=== PATIENT | male | born 1935 | race Caucasian/White ===

== ENCOUNTER 2017-06-24 05:24 | Day surgery (SDC) | payer MEDICARE, BC, SELFPAY ==
[2017-06-17 07:30] VITALS: BP 130/80; BMI 23.4
[2017-06-24 06:08] VITALS: BP 149/76; PULSE 71; RESP 16; O2SAT 98; BMI 23.4
--- NOTE | 2017-06-24 06:42 | COLBX_PTH ---
PATIENT: HERBERTH ROMAN LOC: [facility] U#:[id number] AGE/SX: 81/M ROOM: RE06/24/[address]: Dr. Yoseph Bowers MD : 1935 BED: DIS: 06/24/2017 SPEC #: [id number] RECD: 06/24/17 11:05 STATUS: AVINASH JADON #: [id number] LEE: 06/24/17 06:[address]: Yoseph Bowers DEPT: SURGICAL PATHOLOGY RECD BY: Anthony Zamora ENTERED: 06/24/17 12:05 SP TYPE: COLON BX OTHR DR: Dr. Stanley Fontenot MD Tissues: Rectum, NOS Procedures: Surgery Specimen Level IV HEADER OPERATION: Colonoscopy and polypectomy PRE-OP DIAGNOSIS: Change in bowel habits TISSUE SUBMITTED: Rectum polyp MICROSCOPIC DIAGNOSIS Rectal polyp, biopsy: Hyperplastic polyp. AM:hector 06/25/17 MICROSCOPIC DESCRIPTION Slides are reviewed. GROSS DESCRIPTION Received in fixative is one container labeled with the patient's name and designated rectum polyp. The specimen consists of multiple irregular fragments of light landeros soft tissue that in aggregate measure 0.5 x 0.3 x 0.1 cm. The specimen is totally submitted in one cassette. / SJ:hector 06/24/17 TC:5 CPT: 25363
--- NOTE | 2017-06-24 06:47 | PCM.OPRPT ---
Problem List (1) Change in bowel habit Status: Acute Report of Operation Date of Procedure: 06/24/17 Pre-Operative Diagnosis: Acute change of bowel habit. Personal history of colon cancer and personal history of colon polyps Post-Operative Diagnosis: Patent colorectal anastomosis. Diminutive rectal polyp. Internal and external hemorrhoids. Lax anal tone. Sigmoid diverticulosis Surgery/Procedure Performed:: Colonoscopy with snare polypectomy Description of Surgical Findings:: Timeout and informed consent was obtained. 81-year-old gentleman was taken to the endoscopy suite. He was placed in a left lateral decubitus position. 50 mg of Demerol and 2.5 mg of Versed were given as intravenous sedation. Digital rectal exam performed. 2+ smooth prostate. Internal and external hemorrhoids noted more of an internal component. No active bleeding. Lax anal tone. Flexible colonoscope inserted in the rectum advanced identifying a colorectal anastomosis at approximately 8-10 cm. It appeared to be widely patent. Scope was advanced past that up a the sigmoid colon past the splenic flexure than easily through the transverse colon to the cecum. Bowel prep was adequate there was still some liquid stool throughout the colon but it could be aspirated. The cecum ileocecal valve area was nicely achieved. The scope was carefully withdrawn from the ascending transverse descending and sent remnant of the sigmoid colon. Sigmoid diverticulosis was identified but I did not identify any signs of acute inflammation. The widely patent colorectal anastomosis was identified. Guerline ink was still remaining marking this area. There was a diminutive 6 mm sessile polyp of the rectum with about 6 cm to the anal verge. This was resected using a snare cautery. It was retrieved. Inspection of the rectum revealed internal hemorrhoids. Did not see any stricture or mass lesions. Excess fluid and air was aspirated free the procedure was completed with the patient tolerating it well. Impression Lax anal tone. Internal and external hemorrhoids with more of an internal hemorrhoidal component Sigmoid diverticulosis The patent colorectal anastomosis Sessile polyp of the rectum Previous colonoscopy was April 19, 2014. The patient has had previous history of colon cancer within a polyp that was resected. He has had dysplasia within a broad-based rectal polyp that required the colectomy. At this point he has no evidence of active disease. Pending pathology follow-up colonoscopy to be considered in 3 years. Etiology to the patient's change of bowel habits not identified. I will recommend fiber supplementation. The patient has a multicolored pigmented skin lesion right buttock. Office excision has been recommended to the patient. Cc: Dr. Po Bowers M.D., F.A.C.S. Type of Anesthesia:: IV Sedation
[2017-06-24 06:50] VITALS: BP 104/63; BP 107/73; BP 149/76; PULSE 72; PULSE 74; RESP 18; TEMP 36.4; O2SAT 92; O2SAT 94
[2017-06-24 07:00] VITALS: BP 107/68; BP 149/76; PULSE 69; RESP 18; O2SAT 92
[2017-06-24 07:07] VITALS: BP 105/65; BP 149/76; PULSE 68; RESP 16; TEMP 36.3; O2SAT 92
[2017-06-24 07:21] VITALS: BP 149/76
== END 2017-06-24 07:34 | disposition home or self-care (01) ==
LOC: EN 05:25 → AC 05:26
PROVIDERS: Family Provider Family Medicine; PCP Family Medicine; Visit Provider Surgery
PROC: 0DJD8ZZ Inspection of Lower Intestinal Tract, Via Natural or Artificial Opening Endoscopic (ICD-10-PCS; CPT 45378; principal; 2017-06-24 06:25)
DX: K62.1 Rectal polyp (principal); K57.30 Diverticulosis of large intestine without perforation or abscess without bleeding; K62.89 Other specified diseases of anus and rectum; K64.8 Other hemorrhoids; Z86.010 Personal history of colon polyps; L98.8 Other specified disorders of the skin and subcutaneous tissue; F17.210 Nicotine dependence, cigarettes, uncomplicated; Z90.49 Acquired absence of other specified parts of digestive tract
CPT/HCPCS: 45385; 88305; J7120

== ENCOUNTER → 2017-07-05 14:25 | Outpatient (CLI) | payer MEDICARE, BC, SELFPAY ==
--- NOTE | 2017-07-05 | IMM_PTH ---
PATIENT: HERBERTH ROMAN LOC: [facility] U#:[id number] AGE/SX: 89/M ROOM: RE07/05/[address]: Dr. Yoseph Bowers MD : 1935 BED: DIS: SPEC #: [id number] RECD: 07/06/17 12:44 STATUS: AVINASH REAddy #: [id number] LEE: 07/05/17 00:[address]: Yoseph Bowers DEPT: IMMUNOHISTOCHEMISTRY RECD BY: Lacie Machuca ENTERED: 07/06/17 12:45 SP TYPE: IMMUNO OTHR DR: Dr. Stanley Fontenot MD Tissues: Skin of buttock, NOS Procedures: [place]-1 (initial) S-100 (add) PHYSICIAN & INSTITUTION [place] [id number] SPECIMEN INFORMATION: Tissue Source: Right buttock tissue Clinical Info: Right buttock lesion Specimen Number: [id number] CPT code: 39006, 26974 METHODOLOGY: Deparaffinized sections of prefer/formalin-fixed tissue or PAP/DQ stained slides are incubated with monoclonal/polyclonal antibodies/oligonucleotide probes. Localization is made via biotin free immunoperoxidase method. Appropriate controls are performed and reacted as expected. Results on target cell population are indicated in the following table: RESULTS: ANTIBODY / CLONE RESULT S-100 (4C4.9) positive MART-1 (A-103) positive These tests were developed and their performance characteristics determined by [facility]. They may not have been cleared or approved by the U.S. Food and Drug Administration. The FDA has determined that such clearance or approval is not necessary. 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 SJ:hector 07/06/17
--- NOTE | 2017-07-05 13:00 | LES_PTH ---
PATIENT: HERBERTH ROMAN LOC: [facility] U#:[id number] AGE/SX: 89/M ROOM: RE07/05/[address]: Dr. Yoseph Bowers MD : 1935 BED: DIS: SPEC #: [id number] RECD: 07/05/17 13:40 STATUS: AVINASH JADON #: [id number] LEE: 07/05/17 13:[address]: Yoseph Bowers DEPT: SURGICAL PATHOLOGY RECD BY: Lacie Machuca ENTERED: 07/05/17 15:28 SP TYPE: Lesion OTHR DR: Dr. 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 See comment. SJ:hector 07/06/17 COMMENT Immunohistochemistry ([id number]) supports the above diagnosis. Case has been reviewed in consultation with Dr. Dill who concurs with the above diagnosis. IDC:AM MICROSCOPIC DESCRIPTION Slides are reviewed. GROSS DESCRIPTION Received in fixative is one container labeled with the patient's name and designated right buttock tissue. The specimen consists of a landeros-white skin ellipse measuring 2 x 0.7 cm and up to 0.5 cm in thickness. The brown round lesion on the skin surface measures 0.5 x 0.5 cm. The specimen is inked, serially sectioned and submitted entirely in one cassette. / CARMELINA:hector 07/05/17 TC:1 CPT: 27032
== END ==
PROVIDERS: Family Provider Family Medicine; PCP Family Medicine; Visit Provider Surgery
DX: L98.9 Disorder of the skin and subcutaneous tissue, unspecified (principal)
CPT/HCPCS: 88305; 88341; 88342

== ENCOUNTER 2022-06-13 18:39 | Emergency (ER) | payer MEDICARE, BC, SELFPAY ==
[2022-06-13 18:40] VITALS: BP 128/71; PULSE 73; RESP 15; TEMP 36.8; O2SAT 95; BMI 21.6
--- NOTE | 2022-06-13 19:09 | EDS_ITS ---
HPI History of Present Illness Chief Complaint: Back Narrative Narrative: 86-year-old male here for back pain. Patient notes the back pain is intermittent. Notes associated abdominal pain. Denies any syncope. Denies any exacerbating or alleviating symptoms. Pain is not worse by movement. Denies any increased activity, new exercises, or trauma to the area. States he is got left-sided back pain notes it wraps around to the groin and the suprapubic region. Notes chronic dribbling, urinary frequency that he associates with his prostate enlargement. His last bowel movement was yesterday. He has had no melena, medic easier. Does note 2 episodes of nonbloody nonbilious vomitus. Denies any chest pain or shortness of breath. Denies any family history of connective tissue disorders or aortic pathology. Denies any fever. Denies any urinary complaints. Patient denies any saddle anesthesia, urinary tension, bowel or bladder incontinence, lower extremity weakness, fever or IV drug use, no recent spinal manipulation or surgery, no recent urinary catheterization. [facility] Medical History (Updated 06/13/22 @ 22:[address] Wilfredo Talbot DO) Change in bowel habits History of colon polyps Skin lesion Home Medications NK 06/24/17 [History Last Taken Unknown] Allergy/AdvReac Type Severity Reaction Status Date / Time No Known Allergies Allergy Verified 07/12/17 08:52 Family History Brother Heart disease Surgical History (Updated 06/13/22 @ 22:[address] Wilfredo Talbot DO) History of colectomy S/P colonoscopy Status post excisional biopsy Social History (Updated 07/12/17 @ 09:08 by Nakita QUIROGA, PA-C) Smoking Status: Unknown if ever smoked alcohol intake: never ROS ROS ED ROS Narrative Constitutional: Denies fever HEENT: Denies sore throat Neck: Denies neck pain Cardiovascular: Denies chest pain, syncope Respiratory: Denies shortness of breath GI: Endorses nausea vomiting abdominal pain : Denies any urinary retention, endorses chronic urinary frequency Musculoskeletal: Endorses back pain Neurologic: Denies numbness weakness or loss of sensation Skin denies rash EXAM Physical Exam Narrative Exam Narrative: Nursing triage notes reviewed, Vital signs reviewed Constitutional: please see mdm HENT: MMM Eyes: Pupils equal round and reactive to light, Extraocular muscles intact Neck: No stridor, no JVD, full neck ROM Lungs: Clear to auscultation, No wheezing or rales. No increased work of breathing, no conversational dyspnea, no accessory muscle use, no nasal flaring. No respiratory distress noted Heart: Regular rate and rhythm, No murmurs, No rubs and No gallops, 2+ distal pulses (radial, femoral, posterior tibial) in all extremities Abdomen: Soft, there is no tenderness,no rigidity, rebound or guarding, no obvious peritoneal signs, no palpable pulsatile abdominal masses, no auscultated abdominal bruit : No CVAT Extremities: No edema Neuro: Intact sensation L1-S1 dermatomal distributions. Intact 5/5 strength in hip flexion (T12-L3). Knee extension (L2-L4). Ankle dorsiflexion (L4-L5). Ankle plantar flexion (S1). Great toe extension (L5). 2+ patellar and Achilles DTRs. Skin: No rash or lesions noted Const Vital Signs: 06/13/22 18:40 Temperature 98.2 F Temperature Source Temporal Pulse Rate 73 Respiratory Rate 15 Blood Pressure 128/71 H Blood Pressure Mean 90 Pulse Ox 95 Oxygen Delivery Method Room Air [facility] Narrative Medical decision making narrative: Chief Complaint: Back pain External records reviewed: No recent advanced imaging of the axial skeleton I considered: AAA, pyelonephritis, nephrolithiasis, muscular back pain, space-occupying lesion including epidural abscess, epidural hematoma, mass. I considered obtain MRI of the lumbar spine to rule out space-occupying lesion however patient had no red flag symptoms such as urinary retention, bowel or bladder incontinence, focal neurologic deficit, history of IV drug use, fever. No signs of cauda equina history or exam. No indication for emergent MRI at this time. I was concerned about intra-abdominal pathology given the patient's advanced age, history of polyps, history of non-Hodgkin's lymphoma status post remote chemo and radiation. I did obtain a CT scan of patient's abdomen pelvis as well as labs to rule out intra-abdominal pathologies, dehydration, hepatobiliary pathology, pancreatitis, UTI, pyelonephritis, nephrolithiasis. Labs and imaging are were remarkable for evidence of a AAA that was proximally 5 cm. There is no leakage, extravasation or rupture noted. He was hemodynamically stable and pain-free on reevaluation. Did discuss case with vascular surgery recommended discharge and close outpatient follow-up. Urine without evidence of inflammation or signs of UTI. Given lack of urine information no signs of pyelonephritis. No significant dehydration noted. No evidence of atrial fibrillation to suggest mesenteric ischemia Factors affecting care: History of colon polyps, non-Hodgkin's lymphoma (status post chemoradiation remotely) Social determinants of health: Elderly, poor health literacy Shared decision making: I will have a discussion with the patient and or visitors regarding risk/benefits of further testing or admission. They will be made aware of of the risk/benefits inherent in this decision they will be given the opportunity to voice understanding. Consults: Vascular surgery (Dr. Ortiz, recommended no acute surgical intervention, further recommended discharge and close outpatient follow-up) Lab Data Attestation: I reviewed the patient's lab results. Lab results narrative: CBC without evidence of leukocytosis to suggest systemic inflammation, no significant anemia or thrombocytopenia BMP without significant electrolyte abnormalities, no anion gap to suggest endorgan hypoperfusion, no acute kidney injury Lactate is wnl indicating no end-organ hypoperfusion and/or hypoxia. Lipase within normal limits, no evidence of pancreatitis LFTs without evidence of obstructive hepatobiliary pathology Urinalysis without evidence of UTI Labs: Laboratory Results - last 24 hr 06/13/22 06/13/22 06/13/22 19:55 19:55 19:55 WBC 5.5 RBC 4.57 L Hgb 14.3 Hct 42.9 MCV 93.9 MCH 31.3 MCHC 33.3 RDW Std Deviation 43.2 RDW Coeff of Carlos 12.4 Plt Count 155 MPV 10.6 Immature Gran % (Auto) 0.200 Neut % (Auto) 69.0 Lymph % (Auto) 18.0 L [place] % (Auto) 12.4 H Eos % (Auto) 0.2 Baso % (Auto) 0.2 Absolute Neuts (auto) 3.8 Absolute Lymphs (auto) 0.99 Nucleated RBC % 0 Sodium 139 Potassium 3.9 Chloride 104 Carbon Dioxide 27.0 Anion Gap 8 BUN 16 Creatinine 0.90 Estim Creat Clear Calc 51.59 Est GFR (MDRD) Af Amer 102 Est GFR (MDRD) Non-Af 85 BUN/Creatinine Ratio 17.7 Glucose 104 Lactic Acid 1.0 Calcium 8.7 Total Bilirubin 0.50 Direct Bilirubin 0.17 AST 17 ALT 19 Alkaline Phosphatase 47 Total Protein 6.8 Albumin 3.5 Globulin 3.3 Lipase 143 Urine Color Urine Clarity Urine pH Ur Specific [place] Urine Protein Urine Glucose (UA) Urine Ketones Urine Occult Blood Urine Nitrite Urine Bilirubin Urine Urobilinogen Ur Leukocyte Esterase Urine RBC Urine WBC Ur Squamous Epith Cells Urine Bacteria Urine Mucus 06/13/22 20:50 WBC RBC Hgb Hct MCV MCH MCHC RDW Std Deviation RDW Coeff of [place] Plt Count MPV Immature Gran % (Auto) Neut % (Auto) Lymph % (Auto) [place] % (Auto) Eos % (Auto) Baso % (Auto) Absolute Neuts (auto) Absolute Lymphs (auto) Nucleated RBC % Sodium Potassium Chloride Carbon Dioxide Anion Gap BUN Creatinine Estim Creat Clear Calc Est GFR (MDRD) Af Amer Est GFR (MDRD) Non-Af BUN/Creatinine Ratio Glucose Lactic Acid Calcium Total Bilirubin Direct Bilirubin AST ALT Alkaline Phosphatase Total Protein Albumin Globulin Lipase Urine Color Yellow Urine Clarity Clear Urine pH 6.5 Ur Specific [place] 1.010 Urine Protein Negative Urine Glucose (UA) Normal Urine Ketones 15 H Urine Occult Blood Negative Urine Nitrite Negative Urine Bilirubin Negative Urine Urobilinogen Normal Ur Leukocyte Esterase Negative Urine RBC 0 SEEN Urine WBC 0 SEEN Ur Squamous Epith Cells 0 SEEN Urine Bacteria 0 SEEN Urine Mucus 0 SEEN Radiography Diagnostic Testing: Clinical Impression(s) from Imaging Studies Abdomen/Pelvis CT 06/13/22 19:40 IMPRESSION: 1. Fusiform infrarenal abdominal aortic aneurysm measuring up to about 5 cm in maximum dimension (anterior to posterior) without adjacent fluid or inflammation. Is no evidence of leakage or rupture. 2. Fluid within nondistended loops of small bowel and within stomach without bowel wall thickening or surrounding inflammation can be normal or can be seen with gastroenteritis in the right clinical setting. 3. Small focal infiltrate involving the right lower lobe. Groundglass opacities at the posterior lower lobes bilaterally. Consider infectious or inflammatory etiologies. 4. Prostatomegaly with calcifications, nonspecific. Correlate with PSA levels. Electronically Signed: Jesus Alberto Rueda MD at 21:40 EST , Discharge Plan Triage Chief Complaint: Back ED Provider: Wilfredo Talbot Dx/Rx/DC Orders Clinical Impression: AAA (abdominal aortic aneurysm), History of colon polyps, History of colectomy, Tobacco abuse Prescriptions: No Action NK Primary Care Provider: Stanley Fonetnot Referrals: Eriberto Ortiz MD [Med Staff - Active Staff] - As soon as possible Activity Restrictions/Additional Instructions: Please return if develop worsening pain, flank pain, back pain, abdominal pain. Please return if you lose consciousness. Please return if you become pale, weak or if your symptoms change or worsen in any way. Please follow-up with Dr. Ortiz (vascular surgeon) for outpatient evaluation and to discuss surgical options. Disposition Disposition: Home, Self Care
--- NOTE | 2022-06-13 19:40 | CT_ITS ---
EXAM: CT ABDOMEN AND PELVIS WITH INTRAVENOUS CONTRAST CLINICAL INDICATION: Abdominal pain, left flank pain, lower abdominal TECHNIQUE: Helically acquired images were obtained of the abdomen and pelvis with intravenous contrast. CTDIvol = ( 10.19 ) mGy, DLP = ( 326.60 ) mGycm This CT exam was performed using one or more of the following dose reduction techniques: automated exposure control, adjustment of the mA and/or kV according to patient size, and/or use of iterative reconstruction technique. This report was created using [employer] report generation technology. CONTRAST: IV 100mL Isovue-370 COMPARISON: None. FINDINGS: LOWER THORAX: Small focal infiltrate involving the right lower lobe. Groundglass opacities at the posterior lower lobes bilaterally could potentially be infectious or inflammatory. No cardiomegaly. No significant pericardial effusion. ABDOMEN: LIVER: Small right anterior hepatic cyst. Homogeneous. No other focal mass. GALLBLADDER AND BILE DUCTS: Unremarkable. No calcified gallstones. No gallbladder distention or wall edema. No intra- or extrahepatic biliary ductal dilation. PANCREAS: Unremarkable. No focal cystic or solid mass. SPLEEN: Unremarkable. Normal size without focal cystic or solid mass. ADRENALS: Unremarkable. No nodules. KIDNEYS AND URETERS: A few scattered small renal cysts bilaterally and other too small to characterize hypodensities bilaterally statistically probably represent cysts. No other renal abnormalities. Normal renal size and position. No hydronephrosis. STOMACH AND BOWEL: Fluid within nondistended loops of small bowel and within stomach without bowel wall thickening or surrounding inflammation can be normal or can be seen with gastroenteritis in the right clinical setting. No other abnormalities. PELVIS: APPENDIX: No evidence of acute appendicitis. BLADDER: Unremarkable. REPRODUCTIVE: Prostatomegaly with calcifications, nonspecific. Correlate with PSA levels. ABDOMEN and PELVIS: INTRAPERITONEAL SPACE: Unremarkable. No ascites or other fluid collection. No free air. BONES/JOINTS: Unremarkable. No suspicious lytic or sclerotic lesions of bone. SOFT TISSUES: Small fat-containing inguinal hernias bilaterally. VASCULATURE: Fusiform infrarenal abdominal aortic aneurysm measuring up to about 5 cm in maximum dimension (anterior to posterior) without adjacent fluid or inflammation. There is a eccentric soft tissue clot involving the periphery of the aneurysm but no significant luminal stenosis. LYMPH NODES: Unremarkable. No enlarged lymph nodes. CT/Abdomen/Pelvis W IV Cont ONLY IMPRESSION: 1. Fusiform infrarenal abdominal aortic aneurysm measuring up to about 5 cm in maximum dimension (anterior to posterior) without adjacent fluid or inflammation. Is no evidence of leakage or rupture. 2. Fluid within nondistended loops of small bowel and within stomach without bowel wall thickening or surrounding inflammation can be normal or can be seen with gastroenteritis in the right clinical setting. 3. Small focal infiltrate involving the right lower lobe. Groundglass opacities at the posterior lower lobes bilaterally. Consider infectious or inflammatory etiologies. 4. Prostatomegaly with calcifications, nonspecific. Correlate with PSA levels. Electronically Signed: Jesus Alberto Rueda MD at 21:40 EST ,
[2022-06-13] MEDS: Ondansetron 4 MG/2 ML Vial IV (19:55)
[2022-06-13] MEDS: 0.9% Normal Saline 1,000 ML 1000 ML IV (19:55)
[2022-06-13 20:00] LABS: Absolute Lymphocyte Count 0.99 X10^3/uL (0.83-4.51); Absolute Neutrophil Count 3.8 X10^3/uL (2.0-7.7); Basophil# 0.01 X10^3/uL; Basophil% 0.2 % (0-1); Eosinophil# 0.01 X10^3/uL; Eosinophils% 0.2 % (0-5); Hematocrit 42.9 % (40-54); Hemoglobin 14.3 g/dL (13.0-16.5); Lymphocyte # 0.99 X10^3/ul (0.83-4.51); Mean Corp Hgb Conc 33.3 g/dL (32-36); Mean Corpuscular Hgb 31.3 pg (27.0-32.0); Mean Corpuscular Volume 93.9 fL (80-94); Mean Platelet Vol. 10.6 fl (6.2-12.0); Monocyte# 0.68 X10^3/uL; Monocyte% 12.4 % (0-10); NRBC Flagged by Analyzer 0 % (0-5); Neutrophil # 3.79 X10^3/uL (2.7-7.7); Platelet Count 155 K/mm3 (150-450); RBC Distribution Width CV 12.4 % (11.6-14.6); RBC Distribution Width SD 43.2 fl (35.1-43.9); Red Blood Count 4.57 M/mm3 (4.6-6.2); White Blood Count 5.5 K/mm3 (4.4-11.0)
[2022-06-13 20:40] LABS: AST(SGOT) 17 U/L (15-37); Alanine Aminotransfer ALT/SGPT 19 U/L (16-61); Albumin, Serum 3.5 g/dL (3.2-5.0); Alkaline Phosphatase 47 U/L (45-117); Anion Gap 8 (5-15); BUN 16 mg/dL (7-18); BUN/Creat Ratio 17.7 RATIO (10-20); Bilirubin, Direct 0.17 mg/dL (0.00-0.30); Calcium,Total 8.7 mg/dL (8.5-10.1); Chloride 104 mmol/L (98-107); EST Glomerular Filtration Rate 85 mL/min (>60); Est Glom Filt Rate - Afr Amer 102 mL/min (>60); Estimated Creatinine Clearance 51.59 ml/min; Globulin 3.3 g/dL (2.2-4.2); Glucose 104 mg/dL (74-106); Lipase 143 U/L (73-393); Potassium 3.9 mmol/L (3.5-5.1); Protein, Total 6.8 g/dL (6.4-8.2); Sodium Level 139 mmol/L (136-145)
[2022-06-13 20:56] LABS: Bacteria 0 SEEN /hpf (None Seen); Mucous, Urine 0 SEEN /hpf (<or=2+); Red Blood Cells-Urine 0 SEEN /hpf (0-5); Squamous Epithelial Cells - UA 0 SEEN /hpf (0-5); White Blood Cells 0 SEEN /hpf (0-5)
[2022-06-13 20:58] LABS: Color, Urine Yellow (Yellow); Glucose, Dipstick Normal (Normal); Ketone-Dipstick 15 mg/dl (Negative); Leukocyte Esterase-Dipstick Negative /ul (Negative); Nitrite-Dipstick Negative (Negative); Occult Blood-Urine Negative /ul (Negative); Protein-Dipstick Negative (Negative); Urine Bilirubin Dipstick Negative (Negative); Urine Clarity Clear (Clear); Urine Urobilinogen Normal (Normal); Urine pH 6.5 (5.0 - 8.0)
--- NOTE | 2022-06-13 21:14 | EKG12_ITS ---
Test Reason : BACK PAIN Blood Pressure : / mmHG Vent. Rate : 068 BPM Atrial Rate : 068 BPM P-R Int : 122 ms QRS Dur : 124 ms QT Int : 440 ms P-R-T Axes : 059 -68 027 degrees QTc Int : 467 ms Sinus rhythm with occasional Premature ventricular complexes Left axis deviation Right bundle branch block Abnormal ECG Confirmed by VIKTORIYA TEE, BHARATH ([id number]), editor farm journal JOSE TORRES ([id number]) on 06/15/2022 10:05:28 AM Referred By: Confirmed By:BHARATH SADLER MD
[2022-06-13 22:28] VITALS: BP 132/82; PULSE 85; RESP 15; O2SAT 98
== END 2022-06-13 22:30 | disposition home or self-care (01) ==
PROVIDERS: Emergency Provider Emergency Medicine; PCP Family Medicine; Visit Provider Emergency Medicine
DX: M54.9 Dorsalgia, unspecified (principal); I71.40 Abdominal aortic aneurysm, without rupture, unspecified; N40.1 Benign prostatic hyperplasia with lower urinary tract symptoms; R35.0 Frequency of micturition; Z92.3 Personal history of irradiation; Z86.010 Personal history of colon polyps; Z85.72 Personal history of non-Hodgkin lymphomas; Z92.21 Personal history of antineoplastic chemotherapy
CPT/HCPCS: 74177; 80048; 80076; 81001; 83605; 83690; 85025; 93005; 96361; 96374; 99283; J7030; Q9967; A4216; J2405

== ENCOUNTER 2022-06-15 13:17 | Emergency (ER) | payer MEDICARE, BC, SELFPAY ==
[2022-06-15 13:18] VITALS: BP 181/165; PULSE 71; RESP 14; TEMP 36.6; O2SAT 90; BMI 21.6
--- NOTE | 2022-06-15 13:34 | CT_ITS ---
STUDY: CTA ABDOMEN AND PELVIS WITH CONTRAST REASON FOR EXAM: Male, 86 years old. Abdominal pain, history of AAA RADIATION DOSAGE (If Supplied By Facility): CTDIvol = ( 26.37 ) mGy, DLP = ( 315.77 ) mGycm TECHNIQUE: Transaxial images were obtained from the dome of the diaphragm to the symphysis pubis without oral contrast. IV 100mL Isovue-370 was administered. Sagittal and coronal images were reconstructed. Individualized dose optimization techniques were used for this CT. COMPARISON: Comparison is made with prior study dated 12/11/2022.. FINDINGS: Increased markings at the lung bases suggestive of liver bibasilar scarring. The visualized portions of the heart are within normal limits. There is decreased attenuation of the liver consistent with steatosis. Stable 1 cm cyst in the anterior superior aspect of the right lobe of the liver. Normal gallbladder and extrahepatic biliary system. Normal spleen. Normal pancreas. Normal bilateral adrenal glands. Normal right kidney. Normal left kidney. Normal visualized stomach. Normal small intestine. There are multiple colonic diverticula consistent with diverticulosis. The appendix is visualized and appears normal. There is diffuse atherosclerotic calcification of the abdominal aorta. Stable infrarenal fusiform abdominal aortic aneurysm with a transverse dimension of 4.5 cm. Mural thrombus is seen. This aneurysm extends into the aortic bifurcation.. Normal inferior vena cava. Normal retroperitoneum. Normal urinary bladder. Normal abdominal wall. There are diffuse degenerative changes of the visualized lumbar spine. CT/CTA Abdomen W/WO Contrast IMPRESSION: Fusiform infrarenal abdominal aortic aneurysm with a transverse dimension of 4.5 cm. Mural thrombus is seen. Electronically Signed: Dawood Richards MD at 14:27 EST ,
--- NOTE | 2022-06-15 13:37 | EDS_ITS ---
HPI <JUNAID Driscoll - Last Filed: 06/15/22 15:43> History of Present Illness Chief Complaint: Abd Pain Narrative Narrative: Patient presents with left-sided abdominal pain that started earlier this afternoon. He states the pain was dull and lasted for around 45 minutes. He was recently in the ED 06/13/2022 with back pain that radiated to the abdomen and was diagnosed with a 5cm AAA and told to return if he developed any abdominal pain. Patient denies nausea, vomiting, diarrhea, chest pain, shortness of breath, melena, and hematochezia. PFSH <JUNAID Driscoll - Last Filed: 06/15/22 15:43> [facility] Medical History (Updated 06/15/22 @ 14:46 by JUNAID Driscoll) Change in bowel habits History of colon polyps Non-Hodgkin lymphoma Skin lesion Home Medications NK 06/24/17 [History Last Taken Unknown] Allergy/AdvReac Type Severity Reaction Status Date / Time No Known Allergies Allergy Verified 06/15/22 13:18 Family History Brother Heart disease Surgical History History of colectomy S/P colonoscopy Status post excisional biopsy Social History (Updated 07/12/17 @ 09:08 by Nakita QUIROGA, PA-C) Smoking Status: Unknown if ever smoked alcohol intake: never ROS <JUNAID Driscoll - Last Filed: 06/15/22 15:43> ROS ED Constitutional Constitutional ED: Denies chills, fever(s) or sweats Eyes Eyes: Denies blurry vision or diplopia Cardiovascular Cardiovascular: Denies chest pain or palpitations Respiratory/Chest Respiratory/Chest: Denies cough, dyspnea, tachypnea or wheezing Gastrointestinal Gastrointestinal: Denies abdominal pain, constipation, diarrhea, nausea or vomiting Genitourinary Genitourinary ED: Denies dysuria, hematuria or urinary urgency Musculoskeletal Musculoskeletal: Denies arthralgias, back pain, myalgias or neck pain Integumentary Denies abscess, Abrasions or rash Neurologic Neurologic: Denies confusion, dizziness or paresthesias Psychiatric Psychiatric: Denies anxiety, depression, suicidal ideation or suicidal thoughts Allergic/Immunologic Allergic/Immunologic ED: Denies lip swelling, mouth swelling or urticaria EXAM <JUNAID Driscoll - Last Filed: 06/15/22 15:43> Physical Exam Const Vital Signs: 06/15/22 13:18 06/15/22 14:59 06/15/22 14:30 Temperature 98 F Temperature Source Temporal Pulse Rate 71 Respiratory Rate 14 Blood Pressure 181/165 H 133/78 H 119/78 Blood Pressure Mean 170 91 Pulse Ox 90 Oxygen Delivery Method Room Air Positive well nourished, well developed and no apparent distress General Appearance ED: well developed HEENT Reports normocephalic and head/scalp atraumatic Mouth ED: Yes moist mucous membranes normal Eyes PERRL and EOMs intact bilaterally Neck full ROM and supple Chest Wall inspection of chest normal Resp normal respiratory effort and clear to auscultation bilaterally Cardio regular rate and regular rhythm GI soft to palpation, non-tender, non-distended and no masses Back/Spine normal ROM and normal to inspection Extremity normal to inspection and full ROM Neuro oriented x3, CN's II-XII intact bilaterally, moves all extremities, no focal motor deficits and no sensory deficits noted Sensorium / Orientation: awake and alert Psych mental status grossly normal and thought process normal Skin no rashes or lesions noted and no wounds <Dr. Wilfredo Talbot, DO - Last Filed: 06/15/22 16:43> Physical Exam Const Vital Signs: 06/15/22 13:18 06/15/22 14:59 06/15/22 14:30 Temperature 98 F Temperature Source Temporal Pulse Rate 71 Respiratory Rate 14 Blood Pressure 181/165 H 133/78 H 119/78 Blood Pressure Mean 170 91 Pulse Ox 90 Oxygen Delivery Method Room Air MDM <JUNAID Driscoll - Last Filed: 06/15/22 15:43> [facility] MDM Narrative Medical decision making narrative: Patient presenting after having left sided abdominal pain that lasted for around 45 minutes and was dull in nature. He is well-appearing and in no acute distress. Initial blood pressure reading was 181/165 however, I believe this was an error. Several repeat blood pressures were taken that measured 133/78 and 119/66. I did children counselor patient on blood pressure management and have encouraged him to follow-up with PCP on this issue as he does not have any known hypertension. Because of his abdominal pain and history of AAA we have obtained a CTA of the abdomen. CT of the abdomen from 06/13/2022 reviewed and shows a 5.0 cm AAA. Scan today shows a 4.5 cm AAA. There is no enlargement, leakage, extravasation or rupture noted.? He is comfortable and pain-free on reevaluation. I have considered acute abdominal processes such as pancreatitis, however lipase is 130. UTI, pyelonephritis, nephrolithiasis all considered but UA is unremarkable and patient does not have any leukocytosis. Patient does not have any abdominal tenderness. CMP does not show any electrolyte abnormalities. There is no LAUREN. Patient will be discharged home in stable condition is comfortable with plan. He has a follow-up appointment with vascular Dr. Ortiz tomorrow morning. Lab Data Attestation: I reviewed the patient's lab results. Lab results narrative: Platelet 149, CBC does not show any leukocytosis, PT 13, INR 1.0, PTT 32.6, glucose 119, lipase 130 and does not show any pancreatitis, UA does not show any acute cystitis Labs: Laboratory Results - last 24 hr 06/15/22 06/15/22 06/15/22 13:30 13:30 13:30 WBC 5.3 RBC 4.66 Hgb 14.5 Hct 44.3 MCV 95.1 H MCH 31.1 MCHC 32.7 RDW Std Deviation 43.8 RDW Coeff of Carlos 12.5 Plt Count 149 L MPV 11.1 Immature Gran % (Auto) 0.400 Neut % (Auto) 47.9 Lymph % (Auto) 36.4 [place] % (Auto) 14.7 H Eos % (Auto) 0.2 Baso % (Auto) 0.4 Absolute Neuts (auto) 2.5 Absolute Lymphs (auto) 1.93 Nucleated RBC % 0 PT 13.0 INR 1.0 APTT 32.6 Sodium 138 Potassium 4.0 Chloride 104 Carbon Dioxide 27.0 Anion Gap 7 BUN 15 Creatinine 0.90 Estim Creat Clear Calc 51.59 Est GFR (MDRD) Af Amer 103 Est GFR (MDRD) Non-Af 85 BUN/Creatinine Ratio 16.7 Glucose 119 H Calcium 9.1 Total Bilirubin 0.70 AST 21 ALT 20 Alkaline Phosphatase 46 Total Protein 7.3 Albumin 3.5 Globulin 3.8 Albumin/Globulin Ratio 0.9 Lipase 130 Urine Color Urine Clarity Urine pH Ur Specific [place] Urine Protein Urine Glucose (UA) Urine Ketones Urine Occult Blood Urine Nitrite Urine Bilirubin Urine Urobilinogen Ur Leukocyte Esterase Urine RBC Urine WBC Ur Squamous Epith Cells Urine Bacteria Urine Mucus 06/15/22 14:20 WBC RBC Hgb Hct MCV MCH MCHC RDW Std Deviation RDW Coeff of Carlos Plt Count MPV Immature Gran % (Auto) Neut % (Auto) Lymph % (Auto) [place] % (Auto) Eos % (Auto) Baso % (Auto) Absolute Neuts (auto) Absolute Lymphs (auto) Nucleated RBC % PT INR APTT Sodium Potassium Chloride Carbon Dioxide Anion Gap BUN Creatinine Estim Creat Clear Calc Est GFR (MDRD) Af Amer Est GFR (MDRD) Non-Af BUN/Creatinine Ratio Glucose Calcium Total Bilirubin AST ALT Alkaline Phosphatase Total Protein Albumin Globulin Albumin/Globulin Ratio Lipase Urine Color Yellow Urine Clarity Clear Urine pH 7.0 Ur Specific [place] 1.010 Urine Protein 15 H Urine Glucose (UA) Normal Urine Ketones 5 H Urine Occult Blood Negative Urine Nitrite Negative Urine Bilirubin Negative Urine Urobilinogen Normal Ur Leukocyte Esterase Negative Urine RBC 0 SEEN Urine WBC 0 SEEN Ur Squamous Epith Cells 0 SEEN Urine Bacteria 0 SEEN Urine Mucus 0 SEEN Radiography Diagnostic Testing: Clinical Impression(s) from Imaging Studies Abdomen CTA 06/15/22 13:34 IMPRESSION: Fusiform infrarenal abdominal aortic aneurysm with a transverse dimension of 4.5 cm. Mural thrombus is seen. Electronically Signed: Dawood Richards MD at 14:27 EST Reading Location ID and State: [address] [place] [address] , Service support , CT also reviewed and interpreted by attending ED physician. In agreement with radiology. <Dr. Wilfredo Talbot, DO - Last Filed: 06/15/22 16:43> [facility] Lab Data Labs: Laboratory Results - last 24 hr 06/15/22 06/15/22 06/15/22 13:30 13:30 13:30 WBC 5.3 RBC 4.66 Hgb 14.5 Hct 44.3 MCV 95.1 H MCH 31.1 MCHC 32.7 RDW Std Deviation 43.8 RDW Coeff of Carlos 12.5 Plt Count 149 L MPV 11.1 Immature Gran % (Auto) 0.400 Neut % (Auto) 47.9 Lymph % (Auto) 36.4 [place] % (Auto) 14.7 H Eos % (Auto) 0.2 Baso % (Auto) 0.4 Absolute Neuts (auto) 2.5 Absolute Lymphs (auto) 1.93 Nucleated RBC % 0 PT 13.0 INR 1.0 APTT 32.6 Sodium 138 Potassium 4.0 Chloride 104 Carbon Dioxide 27.0 Anion Gap 7 BUN 15 Creatinine 0.90 Estim Creat Clear Calc 51.59 Est GFR (MDRD) Af Amer 103 Est GFR (MDRD) Non-Af 85 BUN/Creatinine Ratio 16.7 Glucose 119 H Calcium 9.1 Total Bilirubin 0.70 AST 21 ALT 20 Alkaline Phosphatase 46 Total Protein 7.3 Albumin 3.5 Globulin 3.8 Albumin/Globulin Ratio 0.9 Lipase 130 Urine Color Urine Clarity Urine pH Ur Specific [place] Urine Protein Urine Glucose (UA) Urine Ketones Urine Occult Blood Urine Nitrite Urine Bilirubin Urine Urobilinogen Ur Leukocyte Esterase Urine RBC Urine WBC Ur Squamous Epith Cells Urine Bacteria Urine Mucus 06/15/22 14:20 WBC RBC Hgb Hct MCV MCH MCHC RDW Std Deviation RDW Coeff of [place] Plt Count MPV Immature Gran % (Auto) Neut % (Auto) Lymph % (Auto) [place] % (Auto) Eos % (Auto) Baso % (Auto) Absolute Neuts (auto) Absolute Lymphs (auto) Nucleated RBC % PT INR APTT Sodium Potassium Chloride Carbon Dioxide Anion Gap BUN Creatinine Estim Creat Clear Calc Est GFR (MDRD) Af Amer Est GFR (MDRD) Non-Af BUN/Creatinine Ratio Glucose Calcium Total Bilirubin AST ALT Alkaline Phosphatase Total Protein Albumin Globulin Albumin/Globulin Ratio Lipase Urine Color Yellow Urine Clarity Clear Urine pH 7.0 Ur Specific [place] 1.010 Urine Protein 15 H Urine Glucose (UA) Normal Urine Ketones 5 H Urine Occult Blood Negative Urine Nitrite Negative Urine Bilirubin Negative Urine Urobilinogen Normal Ur Leukocyte Esterase Negative Urine RBC 0 SEEN Urine WBC 0 SEEN Ur Squamous Epith Cells 0 SEEN Urine Bacteria 0 SEEN Urine Mucus 0 SEEN Radiography Diagnostic Testing: Clinical Impression(s) from Imaging Studies Abdomen CTA 06/15/22 13:34 IMPRESSION: Fusiform infrarenal abdominal aortic aneurysm with a transverse dimension of 4.5 cm. Mural thrombus is seen. Electronically Signed: Dawood Richards MD at 14:27 EST , Treatment and Re-Evaluation Narrative: Attending MDM Patient presents with intermittent abdominal pain in the setting of recent diagnosed AAA. Patient was hemodynamically stable, afebrile, nontoxic-appearing peer abdominal exam without pulsatile abdominal masses, bruits. There are no pulse deficits on my exam I obtained a CT scan patient's abdomen to rule out active extravasation, aneurysmal dilation or rupture of the patient's recently diagnosed AAA CT scan revealed stable/smaller appearance of AAA which is reassuring. Patient was reevaluated he had no pain his vitals were stable he was appropriate for discharge with close outpatient vascular surgery follow-up which is scheduled for 06/16/2022. Disposition: Discharge home Discharge Plan Triage Chief Complaint: Abd Pain ED Midlevel Provider: Ledy Villatoro ED Provider: Wilfredo Talbot Dx/Rx/DC Orders Clinical Impression: AAA (abdominal aortic aneurysm), Abdominal pain, Hypertension Instructions: Controlling High Blood Pressure, AAA Prescriptions: No Action NK Primary Care Provider: Stanley Fontenot Referrals: Stanley Fonteont MD [Primary Care Provider] - 3-5 Days Activity Restrictions/Additional Instructions: Please follow-up with PCP regarding her elevated blood pressure. Please present to your appointment with Dr. Ortiz tomorrow morning. Please return for any abdominal pain, back pain, and loss of consciousness. Disposition Disposition: Home, Self Care Discharge Date/Time: 06/15/22 15:00
[2022-06-15 13:57] LABS: Absolute Lymphocyte Count 1.93 X10^3/uL (0.83-4.51); Absolute Neutrophil Count 2.5 X10^3/uL (2.0-7.7); Basophil# 0.02 X10^3/uL; Basophil% 0.4 % (0-1); Eosinophil# 0.01 X10^3/uL; Eosinophils% 0.2 % (0-5); Hematocrit 44.3 % (40-54); Hemoglobin 14.5 g/dL (13.0-16.5); Lymphocyte # 1.93 X10^3/ul (0.83-4.51); Lymphocyte % 36.4 % (19-41); Mean Corp Hgb Conc 32.7 g/dL (32-36); Mean Corpuscular Hgb 31.1 pg (27.0-32.0); Mean Corpuscular Volume 95.1 fL (80-94); Mean Platelet Vol. 11.1 fl (6.2-12.0); Monocyte# 0.78 X10^3/uL; Monocyte% 14.7 % (0-10); NRBC Flagged by Analyzer 0 % (0-5); Neutrophil # 2.54 X10^3/uL (2.7-7.7); Neutrophil % 47.9 % (47-70); Platelet Count 149 K/mm3 (150-450); RBC Distribution Width CV 12.5 % (11.6-14.6); RBC Distribution Width SD 43.8 fl (35.1-43.9); Red Blood Count 4.66 M/mm3 (4.6-6.2); White Blood Count 5.3 K/mm3 (4.4-11.0)
[2022-06-15 14:08] LABS: Partial Thromboplast Time 32.6 Seconds (24.1-36.2)
[2022-06-15 14:09] LABS: ALB/GLOB Ratio 0.9 RATIO (0.9-2.4); AST(SGOT) 21 U/L (15-37); Alanine Aminotransfer ALT/SGPT 20 U/L (16-61); Albumin, Serum 3.5 g/dL (3.2-5.0); Alkaline Phosphatase 46 U/L (45-117); Anion Gap 7 (5-15); BUN 15 mg/dL (7-18); BUN/Creat Ratio 16.7 RATIO (10-20); Calcium,Total 9.1 mg/dL (8.5-10.1); Chloride 104 mmol/L (98-107); EST Glomerular Filtration Rate 85 mL/min (>60); Est Glom Filt Rate - Afr Amer 103 mL/min (>60); Estimated Creatinine Clearance 51.59 ml/min; Globulin 3.8 g/dL (2.2-4.2); Glucose 119 mg/dL (74-106); Lipase 130 U/L (73-393); Protein, Total 7.3 g/dL (6.4-8.2); Sodium Level 138 mmol/L (136-145)
[2022-06-15 14:24] LABS: Bacteria 0 SEEN /hpf (None Seen); Mucous, Urine 0 SEEN /hpf (<or=2+); Red Blood Cells-Urine 0 SEEN /hpf (0-5); Squamous Epithelial Cells - UA 0 SEEN /hpf (0-5); White Blood Cells 0 SEEN /hpf (0-5)
[2022-06-15 14:29] LABS: Color, Urine Yellow (Yellow); Glucose, Dipstick Normal (Normal); Ketone-Dipstick 5 mg/dl (Negative); Leukocyte Esterase-Dipstick Negative /ul (Negative); Nitrite-Dipstick Negative (Negative); Occult Blood-Urine Negative /ul (Negative); Protein-Dipstick 15 mg/dl (Negative); Urine Bilirubin Dipstick Negative (Negative); Urine Clarity Clear (Clear); Urine Urobilinogen Normal (Normal)
[2022-06-15 14:30] VITALS: BP 119/78
[2022-06-15 14:59] VITALS: BP 133/78
== END 2022-06-15 15:00 | disposition home or self-care (01) ==
PROVIDERS: Physician Assistant; Emergency Provider Emergency Medicine; PCP Family Medicine; Visit Provider Emergency Medicine
DX: I71.43 Infrarenal abdominal aortic aneurysm, without rupture (principal); I10 Essential (primary) hypertension; Z90.49 Acquired absence of other specified parts of digestive tract
CPT/HCPCS: 74175; 80053; 81001; 83690; 85025; 85610; 85730; 99282; Q9967; A4216

== ENCOUNTER 2022-10-02 10:18 | Emergency (ER) | payer MEDICARE, BC, SELFPAY ==
[2022-10-02 10:18] VITALS: BP 159/75; PULSE 64; RESP 14; TEMP 36.2; O2SAT 100; BMI 20.9
--- NOTE | 2022-10-02 10:38 | CT_ITS ---
STUDY: CTA ABDOMEN WITH CONTRAST REASON FOR EXAM: Male, 87 years old. Known abdominal aortic aneurysm. Pounding sensation. RADIATION DOSAGE (If Supplied By Facility): CTDIvol = ( 21.37 ) mGy, DLP = ( 212.35 ) mGycm TECHNIQUE: Transaxial images were obtained post I.V. administration of IV 100mL Isovue-370, and oral contrast. Sagittal and coronal images were reconstructed. 3-D images were reconstructed. Individualized dose optimization techniques were used for this CT. COMPARISON: Comparison is made with prior study dated June 15, 2022. FINDINGS: Mild increased linear markings in the lung bases suggesting mild scarring. The visualized portions of the heart are within normal limits. There is decreased attenuation of the liver consistent with steatosis. Stable 1 cm cyst in the anterior superior aspect of the right lobe of the liver. Normal gallbladder and extrahepatic biliary system. Normal spleen. Normal pancreas. Normal bilateral adrenal glands. Normal right kidney. Normal left kidney. Normal visualized stomach. Normal small intestine. There are multiple colonic diverticula consistent with diverticulosis. The appendix is visualized and appears normal. The abdominal aorta measures 4.6 cm in transverse dimension and 4.9 cm in AP dimension. Mural thrombus is seen. There is been essentially no change. Normal inferior vena cava. Normal retroperitoneum. Normal abdominal wall. There are diffuse degenerative changes of the visualized lumbar spine. CT/CTA Abdomen W/WO Contrast IMPRESSION: Stable appearance of the infrarenal fusiform abdominal aortic aneurysm with a transverse dimension of 4.6 cm and AP dimension of 4.9 cm. Mural thrombus is seen. Electronically Signed: Dawood Richards MD at 12:00 EDT ,
--- NOTE | 2022-10-02 10:39 | EDS_ITS ---
HPI HPI - GI History of Present Illness Chief Complaint: Other, Pain/Inj Narrative Narrative: 87-year-old male past medical history of AAA, presents with abdominal pain that he had when he rolled over this morning around 4 AM, this was approximately 6- 1/2 hours ago. He states that he was recently diagnosed with a AAA but does not know the size of it. He was seen a few months ago again because he had abdominal pain and states that he was told whenever he has abdominal pain that is new, that he should be checked out and get a CT to make sure that his AAA has not ruptured. He denies any nausea or vomiting, no fevers or chills, he is currently pain-free. He states that when he rolled over this morning he felt pounding in his abdomen that he had never felt previously that lasted maybe half an hour, but has resolved since then. [employer] [facility] BEDS AT THE [facility] Medical History Change in bowel habits History of colon polyps Non-Hodgkin lymphoma Skin lesion Home Medications atorvastatin 80 mg tablet 80 mg PO DAILY #30 tabs 06/17/22 [Rx Last Taken Unknown] Allergy/AdvReac Type Severity Reaction Status Date / Time No Known Allergies Allergy Verified 10/02/22 10:20 Family History Brother Heart disease Surgical History History of colectomy S/P colonoscopy Status post excisional biopsy Social History Smoking Status: Unknown if ever smoked alcohol intake: never ROS ROS ED ROS Narrative Constitutional: No fever, no chills. HEENT: No sore throat. No neck pain. No loss of vision. No rhinorrhea. Cardiovascular: No chest pain. No palpitations. No pedal edema. Respiratory: No cough, no shortness of breath. Abdominal: Pounding, periumbilical to epigastric abdominal pain-resolved. No nausea. No vomiting. Genitourinary: No dysuria. No hematuria. Musculoskeletal: No myalgias. No arthralgias. Neurologic: No headaches. No dizziness. No lightheadedness. Skin: No rash. No change in color. Psychiatric: No depression. No anxiety. EXAM Physical Exam Narrative Exam Narrative: Afebrile. Vital signs noted. HEENT: Normocephalic. Atraumatic. PERRL, EOMI. Neck soft and supple. No point tenderness or step off. Cardiovascular: Regular rate and rhythm. No murmurs, rubs, or gallops appreciated. Respiratory: No tachypnea. Lungs clear to auscultation bilaterally. Gastrointestinal: Abdomen soft, nontender, with normoactive bowel sounds. No rebound or guarding. No pulsatile mass appreciated. Neurological: Awake. Alert. Nonfocal, nonlateralizing. Skin: No rash. Normal color. No pallor. Musculoskeletal: No pedal edema. Full range of motion extremities. Const Vital Signs: 10/02/22 10:18 10/02/22 11:34 Temperature 97.2 F L Temperature Source Temporal Pulse Rate 64 Respiratory Rate 14 Respiratory Effort Normal Non-Labored Respiratory Pattern Normal Blood Pressure 159/75 H Blood Pressure Mean 103 Pulse Ox 100 Oxygen Delivery Method Room Air MDM MDM MDM Narrative Medical decision making narrative: I reviewed the patient's prior records. He was initially diagnosed in May of this year, approximately 5 months ago with 5.[address] scan. The repeat CT scan 2 days later showed it to be 4.5 cm. I will obtain laboratory work and a CTA of the abdomen to check the size of the aneurysm as it is now [address] He has a blood pressure of 159/75, and is pain-free so I have lower suspicion for AAA leak. He is not tachycardic. I am not really concerned for other intra-abdominal pathology such as pancreatitis or other problems because he states he is pain-free and he is essentially here to make sure that his AAA is not leaking. I reviewed his laboratory work, he has a normal white count of 6.5, hemoglobin normal at 14.2 with normal platelet count of 216. Review of his BMP shows normal sodium of 140, chloride is slightly elevated at 108 which I think is nonspecific, BUN of 18 and creatinine of 0.94. Glucose is 93. I reviewed his CT imaging, and the radiology report of the CTA of the abdomen and pelvis to check the size of the AAA. While there is mural thrombus, there is essentially no change in the size as it measures 4.6 x 4.9 cm. As there is no evidence of leaking, I feel he can be discharged safely home with follow-up to vascular surgery. I discussed the patient with Alisa, the PA for vascular surgery, Dr. Ortiz, who stated that he had followed up in June and was not interested in repair at that time. He will follow-up with Dr. Ortiz as needed as they are following him with a CTA every 6 months. I feel he be discharged safely home. Return instructions to the emergency department were reviewed. Disposition is discharged home in stable condition. History & Record Review Discussion w/independent historian: Patient Additional record(s) reviewed:: Prior ED visit and Prior labs Lab Data Attestation: I reviewed the patient's lab results. Labs: Laboratory Results - last 24 hr 10/02/22 10/02/22 11:00 11:00 WBC 6.5 RBC 4.52 L Hgb 14.2 Hct 42.8 MCV 94.7 H MCH 31.4 MCHC 33.2 RDW Std Deviation 42.8 RDW Coeff of Carlos 12.3 Plt Count 216 MPV 10.6 Immature Gran % (Auto) 0.200 Neut % (Auto) 56.5 Lymph % (Auto) 28.8 [place] % (Auto) 9.8 Eos % (Auto) 3.6 Baso % (Auto) 1.1 H Absolute Neuts (auto) 3.7 Absolute Lymphs (auto) 1.86 Nucleated RBC % 0 Sodium 140 Potassium 3.9 Chloride 108 H Carbon Dioxide 27.0 Anion Gap 5 BUN 18 Creatinine 0.94 Estim Creat Clear Calc 47.05 Est GFR (MDRD) Af Amer 98 Est GFR (MDRD) Non-Af 81 BUN/Creatinine Ratio 19.1 Glucose 93 Calcium 9.2 Radiography Diagnostic Testing: Clinical Impression(s) from Imaging Studies Abdomen CTA 10/02/22 10:38 IMPRESSION: Stable appearance of the infrarenal fusiform abdominal aortic aneurysm with a transverse dimension of 4.6 cm and AP dimension of 4.9 cm. Mural thrombus is seen. Electronically Signed: Dawood Richards MD at 12:00 EDT , Discharge Plan Triage Chief Complaint: Other, Pain/Inj ED Provider: Nitin Carney Dx/Rx/DC Orders Clinical Impression: Abdominal pain, AAA (abdominal aortic aneurysm) without rupture Instructions: ED Abdominal Pain Unkn Cause Male..., Abdominal Aortic Aneurysm Stable Prescriptions: No Action atorvastatin 80 mg tablet 80 mg PO DAILY Qty: 30 5RF Primary Care Provider: Stanley Fontenot Referrals: Eriberto Ortiz MD [Med Staff - Active Staff] - As Needed Stanley Fontenot MD [Primary Care Provider] - Disposition Disposition: Home, Self Care
[2022-10-02 11:14] LABS: Absolute Lymphocyte Count 1.86 X10^3/uL (0.83-4.51); Absolute Neutrophil Count 3.7 X10^3/uL (2.0-7.7); Basophil# 0.07 X10^3/uL; Basophil% 1.1 % (0-1); Eosinophil# 0.23 X10^3/uL; Eosinophils% 3.6 % (0-5); Hematocrit 42.8 % (40-54); Hemoglobin 14.2 g/dL (13.0-16.5); Lymphocyte # 1.86 X10^3/ul (0.83-4.51); Lymphocyte % 28.8 % (19-41); Mean Corp Hgb Conc 33.2 g/dL (32-36); Mean Corpuscular Hgb 31.4 pg (27.0-32.0); Mean Corpuscular Volume 94.7 fL (80-94); Mean Platelet Vol. 10.6 fl (6.2-12.0); Monocyte# 0.63 X10^3/uL; Monocyte% 9.8 % (0-10); NRBC Flagged by Analyzer 0 % (0-5); Neutrophil # 3.66 X10^3/uL (2.7-7.7); Neutrophil % 56.5 % (47-70); Platelet Count 216 K/mm3 (150-450); RBC Distribution Width CV 12.3 % (11.6-14.6); RBC Distribution Width SD 42.8 fl (35.1-43.9); Red Blood Count 4.52 M/mm3 (4.6-6.2); White Blood Count 6.5 K/mm3 (4.4-11.0)
[2022-10-02 11:24] LABS: Anion Gap 5 (5-15); BUN 18 mg/dL (7-18); BUN/Creat Ratio 19.1 RATIO (10-20); Calcium,Total 9.2 mg/dL (8.5-10.1); Chloride 108 mmol/L (98-107); Creatinine, Serum 0.94 mg/dL (0.70-1.30); EST Glomerular Filtration Rate 81 mL/min (>60); Est Glom Filt Rate - Afr Amer 98 mL/min (>60); Estimated Creatinine Clearance 47.05 ml/min; Glucose 93 mg/dL (74-106); Potassium 3.9 mmol/L (3.5-5.1); Sodium Level 140 mmol/L (136-145)
[2022-10-02] MEDS: 0.9% Normal Saline 1,000 ML 999 ML IV (11:30)
== END 2022-10-02 12:26 | disposition home or self-care (01) ==
PROVIDERS: Emergency Provider Emergency Medicine; PCP Family Medicine; Visit Provider Emergency Medicine
DX: I71.43 Infrarenal abdominal aortic aneurysm, without rupture (principal)
CPT/HCPCS: 74175; 80048; 85025; 96360; 99282; J7030; Q9967; A4216

== ENCOUNTER → 2022-12-08 | Outpatient (CLI) | payer MEDICARE, BC, SELFPAY ==
--- NOTE | 2022-12-08 12:18 | CT_ITS ---
EXAM: CT ANGIOGRAPHY ABDOMEN AND PELVIS WITHOUT AND WITH INTRAVENOUS CONTRAST CLINICAL INDICATION: AAA TECHNIQUE: Helically acquired angiography images were obtained of the abdomen and pelvis without and with intravenous contrast. This CT exam was performed using one or more of the following dose reduction techniques: automated exposure control, adjustment of the mA and/or kV according to patient size, and/or use of iterative reconstruction technique. MIP reconstructed images were created and reviewed. CONTRAST: IV 100mL Isovue-300 COMPARISON: CTA abdomen from 10/02/2022. FINDINGS: VASCULATURE: AORTA: Slight enlargement of the fusiform infrarenal AAA, now measuring 4.9 x 4.9 cm compared with 4.9 x 4.6 cm on the previous exam. CELIAC TRUNK AND MESENTERIC ARTERIES: No acute findings. No occlusion or significant stenosis. No dissection. RENAL ARTERIES: No acute findings. No occlusion or significant stenosis. No dissection. ILIAC ARTERIES: Irregular atherosclerotic calcifications of the right common iliac artery. Irregular atherosclerotic calcifications of the left common iliac artery. No occlusion or significant stenosis. LOWER THORAX: Bibasilar scarring/atelectasis. No cardiomegaly. No significant pericardial effusion. ABDOMEN: LIVER: Unremarkable. Homogeneous. No focal mass. GALLBLADDER AND BILE DUCTS: Unremarkable. No calcified gallstones. No gallbladder distention or wall edema. No intra- or extrahepatic biliary ductal dilation. PANCREAS: Unremarkable. No focal cystic or solid mass. SPLEEN: Unremarkable. Normal size without focal cystic or solid mass. ADRENALS: Unremarkable. No nodules. KIDNEYS AND URETERS: Unremarkable. Normal renal size and position. No hydronephrosis. STOMACH AND BOWEL: Unremarkable. No stomach or bowel distention. No focal inflammatory change. PELVIS: APPENDIX: No evidence of acute appendicitis. BLADDER: Unremarkable. REPRODUCTIVE: Unremarkable as visualized. No mass. ABDOMEN and PELVIS: INTRAPERITONEAL SPACE: Unremarkable. No ascites or other fluid collection. No free air. BONES/JOINTS: Degenerative changes of the spine. No suspicious lytic or blastic abnormality. SOFT TISSUES: Unremarkable. No discrete abdominal or pelvic wall hernia. LYMPH NODES: Unremarkable. No enlarged lymph nodes. CT/CTA Abd/Pelvis W/WO Contrast IMPRESSION: Slight enlargement of the fusiform infrarenal AAA, now measuring 4.9 x 4.9 cm compared with 4.9 x 4.6 cm on the previous exam. No evidence of acute complication. Electronically Signed: Odin Xiong MD at 3:34 EDT ,
[2022-12-08 12:45] LABS: EGFR FINGERSTICK > 60.0000 mL/min (>60)
== END | disposition home or self-care (01) ==
LOC: CT 12:17
PROVIDERS: PCP Family Medicine; Referring Provider Physician Assistant; Visit Provider Physician Assistant
DX: I71.40 Abdominal aortic aneurysm, without rupture, unspecified (principal)
CPT/HCPCS: 74174; Q9967; A4216

== ENCOUNTER → 2023-07-19 | Outpatient (CLI) | payer MEDICARE, BC, SELFPAY ==
--- NOTE | 2023-07-19 | ASPOS_PTH ---
PATHOLOGY RESULTS PATIENT: HERBERTH ROMAN LOC: LAB U#:[id number] AGE/SX: 88/M ROOM: RE07/19/[address]: Dr. Yogi Faust MD : 1935 BED: DIS: 07/19/2023 SPEC #: [id number] RECD: 07/19/23 10:37 STATUS: AVINASH REAddy #: [id number] LEE: 07/19/23 00:[address]: Yogi Faust DEPT: CYTOLOGY RECD BY: Katia Cunningham ENTERED: 07/19/23 10:38 SP TYPE: ASP HERE OTHR DR: Dr. Stanley Fontenot MD Tissues: Neck, NOS Procedures: Surgery Specimen Level IV Cytology Other Fine Needle Asp on Site HEADER OPERATION: Fine needle aspiration, left posterior neck mass PRE-OP DIAGNOSIS: Left posterior neck mass TISSUE SUBMITTED: Left posterior neck mass DIAGNOSIS CYTOLOGY Fine needle aspiration, left posterior neck mass (smears and cell block): Consistent with B-cell lymphoma of center cell origin. See comment. AM:hector 07/21/2023 COMMENT A fine needle aspiration was performed and the specimen is evaluated at the time of FNA by Dr. Dill. Immediate Evaluation = Favor lymphoproliferative disorder. Flow cytometry analysis of aspirate material reveals a B-cell lymphoma that is CD10 positive. The immunophenotype of this B-cell lymphoma is suggestive of a follicle center origin. The complete flow analysis results are viewable in EMR. Immunohistochemistry ([id number]) supports the above diagnosis. The patient's previous history of lymphoma is noted. Clinical correlation is suggested. Case has been reviewed in consultation with Dr. Swartz who concurs with the above diagnosis. IDC:SJ CYTOLOGY STUDY Slides are reviewed. CYTOLOGY GROSS Received is 0.2 ml of reddish-landeros fluid labeled with the patient's name, and designated left posterior neck mass. Four imprints and three paps are made from the submitted fluid and the rest is added to CytoLyt for cell block preparation. Submitted for cytology study. / AM:hector 07/19/2023 TC:0 CPT: 45921, 35865, 27703, 62250
--- NOTE | 2023-07-19 | IMM_PTH ---
PATHOLOGY RESULTS PATIENT: HERBERTH ROMAN LOC: LAB U#:[id number] AGE/SX: 88/M ROOM: RE07/19/[address]: Dr. Yogi Faust MD : 1935 BED: DIS: 07/19/2023 SPEC #: [id number] RECD: 07/20/23 10:48 STATUS: AVINASH REQ #: [id number] LEE: 07/19/23 00:[address]: Yogi Faust DEPT: IMMUNOHISTOCHEMISTRY RECD BY: Lacie Machuca ENTERED: 07/20/23 10:50 SP TYPE: IMMUNO OTHR DR: Dr. Stanley Fontenot MD Tissues: Neck, NOS Procedures: BCL-2 (add) BCL-6 (add) CD10 (add) CD138 (add) CD15 (add) CD20 (add) CD23 (add) CD3 (add) CD30 (add) CD43 (add) CD45 (add) CD5 (add) CD79A (add) CYCLIN (add) KAPPA (add) KI-67 (add) LAMBDA (add) P53 (add) MUM1 (add) C-MYC (add) Pankeratin (initial) PHYSICIAN & INSTITUTION [place] [id number] SPECIMEN INFORMATION: Tissue Source: Left posterior neck mass Clinical Info: Left posterior neck mass Specimen Number: [id number] CPT code: 81328, 84406 x20 METHODOLOGY: Deparaffinized sections of prefer/formalin-fixed tissue or PAP/DQ stained slides are incubated with monoclonal/polyclonal antibodies/oligonucleotide probes. Localization is made via biotin free immunoperoxidase method. Appropriate controls are performed and reacted as expected. Results on target cell population are indicated in the following table: RESULTS: ANTIBODY / CLONE RESULT AE1-3 (AE1/AE3/PCK26) negative CD3 (PS1) negative CD5 (SP10) negative CD10 (56C6) positive CD15 (MMA) negative CD20 (L26) positive CD23 (1B12) negative CD30 (Ramu-H2) negative CD43 (L60) positive, focal CD45 (RP2/18) positive CD79a (11E3) positive CD138 (B-A38) negative BCL-2 (bcl-2/100/D5) positive BCL-6 (DM144O/A8) negative [place] D1/BCL-1 (SP4) negative MUM1 (MRQ-43) negative C-MYC (Y69) negative [place] (polyclonal) negative Lambda (polyclonal) negative P53 (DO-7) negative, null pattern Ki-67 (30-9) positive, 20% These tests were developed and their performance characteristics determined by [facility]. They may not have been cleared or approved by the [place]. Food and Drug Administration. The FDA has determined that such clearance or approval is not necessary. The above immunohistochemical/dualISH markers are ordered and reviewed by the Pathologist. INTERPRETATION: Left posterior neck mass, fine needle aspiration: Consistent with B-cell lymphoma of center cell origin. AM:hector 07/21/2023 Case has been reviewed in consultation with Dr. Swartz who concurs with the above diagnosis. IDC:SJ
--- OUTSIDE RECORDS SUMMARY | 2023-07-19 09:57 | XMS RPT_ITS | CCD ---
Author Name Unknown Address [address] [facility] [address] [place] [address] Organization [facility] Care Team Providers Care Residential Mental Health Worker Name Role Phone Rancho Fontenot MD Primary Care Provider RANCHO FONTENOT Referring Unavailable PO, RANCHO Seth Primary Care Unavailable PO, RANCHO Seth Referring Unavailable PO, RANCHO Seth Primary Care Unavailable PO, RANCHO Seth Primary Care Unavailable PO, RANCHO Seth Attending Unavailable RANCHO FONTENOT Primary Care Unavailable RANCHO FONTENOT Attending Unavailable RANCHO FONTENOT Referring Unavailable RANCHO FONTENOT Primary Care Unavailable RANCHO FONTENOT Primary Care Unavailable RANCHO FONTENOT Attending Unavailable RANCHO FONTENOT Primary Care Unavailable RANCHO FONTENOT Referring Unavailable RANCHO FONTENOT Primary Care Unavailable RANCHO FONTENOT Referring Unavailable RANCHO FONTENOT Primary Care Unavailable RANCHO FONTENOT Referring Unavailable RANCHO FONTENOT Attending Unavailable RANCHO FONTENOT Primary Care Unavailable RANCHO FONTENOT Primary Care Unavailable RANCHO FONTENOT Attending Unavailable Medications Current Medications Medication Drug Class(es) Dates Sig (Normalized) Sig (Original) atorvastatin 80 mg oral tablet (12 sources) HMG-CoA Reductase Inhibitor Start: 10-30-2022 End: 12-27-2023 take 1 tablet by mouth once daily atorvastatin (LIPITOR) 80 mg tablet Indications: Mixed hyperlipidemia Take 1 tablet by mouth once daily. 90 tablet 1 06/30/2023 12/27/2023 Active Completed/Discontinued Medications Medication Drug Class(es) Dates Sig (Normalized) Sig (Original) aspirin 81 mg oral tablet (10 sources) Platelet Aggregation Inhibitor, Nonsteroidal Anti-inflammatory Drug aspirin 81 mg cap Take by mouth. 0 Active Problems Active Problems Problem Classification Problem Date Documented Da te Episodic/Chronic Aortic; peripheral; and visceral artery aneurysms (12 sources) Abdominal aortic aneurysm without rupture; Translations: [Abdominal aortic aneurysm (AAA) without rupture, unspecified part (HCC)] Onset: 07-02-2022 Chronic Diabetes mellitus without complication (8 sources) Prediabetes; Translations: [Prediabetes] Onset: 06-18-2023 06-18-2023 Episodic Diseases of white blood cells (2 sources) Leukocytosis; Translations: [Elevated white blood cell count, unspecified] Onset: 11-25-2022 11-23-2022 Chronic Disorders of lipid metabolism (3 sources) Mixed hyperlipidemia; Translations: [Mixed hyperlipidemia] Onset: 06-16-2023 12-25-2022 Chronic Essential hypertension (12 sources) Essential hypertension; Translations: [Essential (primary) hypertension] Onset: 11-20-2022 11-20-2022 Chronic Genitourinary symptoms and ill-defined conditions (1 source) Proteinuria; Translations: [Proteinuria, unspecified] Episodic Non-Hodgkin`s lymphoma (12 sources) Malignant lymphoma; Translations: [Non-Hodgkin lymphoma, unspecified, unspecified site] Onset: 10-24-2012 10-24-2012 Chronic Non-Hodgkin`s lymphoma (5 sources) History of malignant lymphoma; Translations: [Personal history of non-Hodgkin lymphomas] Onset: 06-18-2023 Episodic Other and unspecified benign neoplasm (4 sources) History of polyp of colon; Translations: [Personal history of colonic polyps] Onset: 11-20-2022 11-20-2022 Episodic Other female genital disorders (1 source) Lump of cervix; Translations: [Other specified noninflammatory disorders of cervix uteri] 06-18-2023 Episodic Other female genital disorders (1 source) Other specified noninflammatory disorders of cervix uteri; Translations: [Cervical mass] Onset: 06-18-2023 Episodic Other gastrointestinal disorders (4 sources) Altered bowel function; Translations: [Other specified symptoms and signs involving the digestive system and abdomen] Onset: 11-20-2022 11-20-2022 Episodic Other lower respiratory disease (1 source) Cough; Translations: [Acute cough] Episodic Other nutritional; endocrine; and metabolic disorders (2 sources) Weight loss; Translations: [Abnormal weight loss] Episodic Other skin disorders (4 sources) Skin lesion; Translations: [Disorder of the skin and subcutaneous tissue, unspecified] Onset: 11-20-2022 11-20-2022 Episodic Other skin disorders (2 sources) Mass of neck; Translations: [Localized swelling, mass and lump, neck] 06-18-2023 Episodic Unclassified (1 source) Abdominal aortic aneurysm (AAA) without rupture, unspecified part (HCC); Translations: [Abdominal aortic aneurysm (AAA) without rupture, unspecified part (HCC)] Onset: 11-20-2022 Unclassified (1 source) Acute cough; Translations: [Acute cough] Onset: 11-20-2022 Past or Other Problems Problem Classification Problem Date Documented Da te Episodic/Chronic Abdominal pain (11 sources) Abdominal discomfort; Translations: [Left upper quadrant pain] Onset: 06-26-2022 Episodic Chronic obstructive pulmonary disease and bronchiectasis (2 sources) Bronchitis; Translations: [Bronchitis, not specified as acute or chronic] Onset: 11-20-2022 Episodic Other and unspecified benign neoplasm (12 sources) Polyp of colon; Translations: [Polyp of colon] Onset: 03-02-2013 03-02-2013 Episodic Other nutritional; endocrine; and metabolic disorders (1 source) Abnormal weight loss; Translations: [Weight loss] Onset: 11-20-2022 Episodic Pneumonia (except that caused by tuberculosis or sexually transmitted disease) (3 sources) Bacterial pneumonia; Translations: [Unspecified bacterial pneumonia] Onset: 12-25-2022 11-27-2022 Episodic Residual codes; unclassified (10 sources) History of colectomy; Translations: [Acquired absence of other specified parts of digestive tract] Onset: 11-20-2022 11-20-2022 Episodic Residual codes; unclassified (10 sources) Tobacco user; Translations: [Tobacco use] Onset: 11-20-2022 11-20-2022 Episodic Results Test Name Value Interpretation Reference Range Facil ity Vital Signs Date Time Vital Sign Value Performing Clinician Faci lity 06-30-2023 08:59-0500 Diastolic blood pressure 78 mm[Hg] Rancho Fontenot MD Work Phone: [facility] 06-30-2023 08:59-0500 Systolic blood pressure 136 mm[Hg] Rancho Fontenot MD Work Phone: [facility] 06-30-2023 08:31-0500 Body height 167.6 cm Rancho Fontenot MD Work Phone: [facility] 06-30-2023 08:31-0500 Body weight 59.24 kg Rancho Fontenot MD Work Phone: [facility] 06-30-2023 08:31-0500 Heart rate 62 /min Rancho Fontenot MD Work Phone: [facility] 06-30-2023 08:31-0500 SaO2% (BldA) [Mass fraction] 95 % Rancho Fontenot MD Work Phone: [facility] 12-25-2022 11:37-0400 Diastolic blood pressure 86 mm[Hg] Rancho Fontenot MD Work Phone: [facility] 12-25-2022 11:37-0400 Systolic blood pressure 134 mm[Hg] Rancho Fontenot MD Work Phone: [facility] 12-25-2022 11:15-0400 Body height 167.6 cm Rancho Fontenot MD Work Phone: [facility] 12-25-2022 11:15-0400 Body weight 56.25 kg Rancho Fontenot MD Work Phone: [facility] 12-25-2022 11:15-0400 Heart rate 62 /min Rancho Fontenot MD Work Phone: [facility] 12-25-2022 11:15-0400 SaO2% (BldA) [Mass fraction] 96 % Rancho Fontenot MD Work Phone: [facility] 11-27-2022 11:34-0400 Body height 167.6 cm Rancho Fontenot MD Work Phone: [facility] 11-27-2022 11:34-0400 Body weight 55.79 kg Rancho Fontenot MD Work Phone: [facility] 11-27-2022 11:34-0400 Diastolic blood pressure 66 mm[Hg] Rancho Fontenot MD Work Phone: [facility] 11-27-2022 11:34-0400 Heart rate 78 /min Rancho Fontenot MD Work Phone: [facility] 11-27-2022 11:34-0400 SaO2% (BldA) [Mass fraction] 93 % Rancho Fontenot MD Work Phone: [facility] 11-27-2022 11:34-0400 Systolic blood pressure 124 mm[Hg] Rancho Fontenot MD Work Phone: [facility] 11-20-2022 12:02-0400 Diastolic blood pressure 58 mm[Hg] Rancho Fontenot MD Work Phone: [facility] 11-20-2022 12:02-0400 Systolic blood pressure 110 mm[Hg] Rancho Fontenot MD Work Phone: [facility] 11-20-2022 11:37-0400 Body height 167.6 cm Rancho Fontenot MD Work Phone: [facility] 11-20-2022 11:37-0400 Body weight 55.97 kg Rancho Fontenot MD Work Phone: [facility] 11-20-2022 11:37-0400 Heart rate 64 /min Rancho Fontenot MD Work Phone: [facility] 11-20-2022 11:37-0400 SaO2% (BldA) [Mass fraction] 92 % Rancho Fontenot MD Work Phone: [facility] 06-13-2022 10:32-0500 Body height 167.6 cm Rancho Fontenot MD Work Phone: [facility] 06-13-2022 10:32-0500 Body temperature 97.81 [degF] Rancho Fontenot MD Work Phone: [facility] 06-13-2022 10:32-0500 Body weight 60.33 kg Rancho Fontenot MD Work Phone: [facility] 06-13-2022 10:32-0500 Diastolic blood pressure 74 mm[Hg] Rancho Fontenot MD Work Phone: [facility] 06-13-2022 10:32-0500 Heart rate 68 /min Rancho Fontenot MD Work Phone: [facility] 06-13-2022 10:32-0500 SaO2% (BldA) [Mass fraction] 95 % Rancho Fontenot MD Work Phone: [facility] 06-13-2022 10:32-0500 Systolic blood pressure 118 mm[Hg] Rancho Fontenot MD Work Phone: [facility] Encounters Encounter Date Encounter Type Care Provider Facility Start: 06-30-2023 End: 06-30-2023 ambulatory RANCHO FONTENOT Facility:[facility] Start: 06-30-2023 End: 06-30-2023 Patient encounter procedure Rancho Fontenot MD Work Phone: [facility] Procedures Date Procedure Procedure Detail Performing Clinician Start: 06-18-2023 Ct soft tissue neck w/contrast material Rancho Fontenot MD Work Phone: Plan of Treatment Date Care Activity Detail Author Start: 06-16-2026 Diabetes Screening Diabetes Screenin g [facility] Start: 11-20-2025 DIABETES SCREEN DIABETES SCREEN [facility] Start: 06-13-2025 DIABETES SCREEN DIABETES SCREEN [facility] Start: 06-16-2024 RSV Vaccine (1 - 1-d ose 60+ series) RSV Vaccine (1 - 1-dose 60+ series) [facility] Immunizations Immunization Date Immunization Notes Care Provider Fa cility 06-03-2017 influenza virus vacc ine, unspecified formulation Ct (I-Stat) Work Phone: [facility] Payers Date Payer Category Payer Unknown [employer] TRADITIONAL OOS [id number] 2013-Present [phone] [address] [place] [address] Indemnity [id number] 2013 Unknown [id number] 2001 Medicare MEDICARE MEDICAR E A AND B [id number] 2001-Present [phone] [address] [address] [place] [address] Medicare [id number] 2001 Medicare [id number] Social History Date Type Detail Facility Start: 06-13-2022 Tobacco smoking stat [facility] Smokes tobacco daily [facility] History of tobacco use Cigarette Smoker C [facility] Start: 06-13-2022 End: 11-27-2022 Cigarettes smoked current (pack per day) - Reported 0.5 [facility] Work Phone: Start: 06-13-2022 Tobacco use and exposure Smokeless tobacco non-user [facility] Start: 06-13-2022 End: 06-30-2023 Alcohol intake Current non-drinker of alcohol (finding) [facility] Start: 06-13-2022 Tobacco Comment [facility] Start: 1935 Sex Assigned At Not on file C [facility] Start: 11-20-2022 End: 11-27-2022 Tobacco use panel [facility] Work Phone: National Score (1-10 0), lower number is lower risk Not on file [facility] Work Phone: Clinical Notes 04-27-2014 to 06-30-2023 Rancho Fontenot MD - 06/30/2023 8:31 AM ESTTelephone Encounter - Kim Storm - 06/19/2023 10:35 AM ESTTelephone Encounter - Kaia Daniels - 06/19/2023 10:24 AM EST Note Date & Type Note Facility 06-30-2023 Note HNO ID: [id number] Author: RANCHO FONTENOT MD Service: ? Author Type: Physician Type: Progress Notes Filed: 06/30/2023 09:02 Note Text: Patient presents with: Follow Up HPI: Patient presents today for office visit for follow up. Continues on Atorvastatin 80 mg. No myalgias. Continues on 81 mg asa. Hx of AAA Denies chest pain No shortness of breath Sees Vascular. Still smoking 1PPD Has appointment with ENT on 08/12/23 for neck mass. Mass still present. He thinks might be smaller. No pain. No redness or warmth. No lumps or bumps elsewhere. Had labs. No weight loss or itching or night sweats. Discussed with him that two months is not acceptable to wait to be seen. Will see what we can do to move an ENT evaluation up. His sugars are in the prediabetic range. Given his age, less of a concern. He states he eats a large amount of sugars. Will watch it but not concerned about it. 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 Correlation with tissue sampling is recommended for further characterization. Component Latest Ref Rng AND Units 06/16/2023 WBC 3.70 - 11.00 k/uL 7.47 RBC 4.20 - 6.00 m/uL 4.63 Hemoglobin 13.0 - 17.0 g/dL 14.6 Hematocrit 39.0 - 51.0 % 43.5 MCV 80.0 - 100.0 fL 94.0 MCH 26.0 - 34.0 pg 31.5 MCHC 30.5 - 36.0 g/dL 33.6 RDW-CV 11.5 - 15.0 % 12.4 Platelet Count 150 - 400 k/uL 205 MPV 9.0 - 12.7 fL 10.9 Neut% % 51.4 Abs Neut (ANC) 1.45 - 7.50 k/uL 3.84 Lymph% % 34.1 Abs Lymph 1.00 - 4.00 k/uL 2.55 Bradley% % 9.1 Abs Bradley <0.87 k/uL 0.68 Eosin% % 4.0 Abs Eosin <0.46 k/uL 0.30 Baso% % 1.1 Abs Baso <0.11 k/uL 0.08 Immature Gran % % 0.3 IMMATURE GRANS (ABS) <0.10 k/uL <0.03 NRBC /100 WBC 0.0 Absolute nRBC <0.01 k/uL <0.01 DTYPE Auto Protein, Total 6.3 - 8.0 g/dL 6.8 Albumin 3.9 - 4.9 g/dL 4.6 Calcium 8.5 - 10.2 mg/dL 9.4 Bilirubin, Total 0.2 - 1.3 mg/dL 1.2 Alkaline Phosphatase 38 - 113 U/L 88 AST 14 - 40 U/L 22 ALT 10 - 54 U/L 27 Glucose 74 - 99 mg/dL 116 (H) BUN 9 - 24 mg/dL 15 Creatinine 0.73 - 1.22 mg/dL 0.94 Sodium 136 - 144 mmol/L 141 Potassium 3.7 - 5.1 mmol/L 4.4 Chloride 97 - 105 mmol/L 103 CO2 22 - 30 mmol/L 27 Anion Gap 9 - 18 mmol/L 11 eGFR >=60 mL/min/1.73mA? 79 Cholesterol, Total <200 mg/dL 125 Triglyceride <150 mg/dL 74 HDL Cholesterol >39 mg/dL 51 Non HDL Cholesterol <130 mg/dL 74 Fasting Time hrs 12 VLDL Cholesterol <30 mg/dL 15 TC:HDL Ratio <5.10 2.45 LDL Cholesterol <100 mg/dL 59 LDL:HDL Ratio <2.54 1.16 Hemoglobin A1C 4.3 - 5.6 % 5.8 (H) Estimated Average Glucose mg/dL 120 WSR 0 - 15 mm/hr 2 LD 135 - 225 U/L 150 MEDICATIONS: Current Outpatient Medications Medication Sig atorvastatin (LIPITOR) 80 mg tablet Take 1 tablet by mouth once daily. aspirin 81 mg cap Take by mouth. No current facility-administered medications for this visit. 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00 Additional pack years: 0.00 Total pack years: 31.50 Types: Cigarettes Smokeless tobacco: Never Tobacco comments: quitting Substance Use Topics Alcohol use: No Drug use: No Reviewed current medications, allergies, past medical history, surgical history, family history and social history today. REVIEW OF SYSTEMS All other reviewed and negative other than HPI. HEALTH MAINTENANCE: Reviewed health maintenance issues today and recommended the following in detail. There are no preventive care reminders to display for this patient. VITALS: BP 136/78 Pulse 62 Ht 167.6 cm (5' 6 ) Wt 59.2 kg (130 lb 9.6 oz) SpO2 95% BMI 21.08 kg/m? Last 4 Encounter Wt Readings: Date: Wt: 06/16/2023 58.5 kg (129 lb) 12/25/2022 56.2 kg (124 lb) 11/27/2022 55.8 kg (123 lb) 11/20/2022 56 kg (123 lb 6.4 oz) PHYSICAL EXAMINATION: General appearance: Well appearing, alert, in no acute distress, well-hydrated, well nourished. Skin: Skin color, text (more content not included)... [facility] 06-30-2023 History of Present illness Narrative Patient presents with: Follow Up HPI: Patient presents today for office visit for follow up. Continues on Atorvastatin 80 mg. No myalgias. Continues on 81 mg asa. Hx of AAA Denies chest pain No shortness of breath Sees Vascular. Still smoking 1PPD Has appointment with ENT on 08/12/23 for neck mass. Mass still present. He thinks might be smaller. No pain. No redness or warmth. No lumps or bumps elsewhere. Had labs. No weight loss or itching or night sweats. Discussed with him that two months is not acceptable to wait to be seen. Will see what we can do to move an ENT evaluation up. His sugars are in the prediabetic range. Given his age, less of a concern. He states he eats a large amount of sugars. Will watch it but not concerned about it. 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 Correlation with tissue sampling is recommended for further characterization. Component Latest Ref Rng & Units 06/16/2023 WBC 3.70 - 11.00 k/uL 7.47 RBC 4.20 - 6.00 m/uL 4.63 Hemoglobin 13.0 - 17.0 g/dL 14.6 Hematocrit 39.0 - 51.0 % 43.5 MCV 80.0 - 100.0 fL 94.0 MCH 26.0 - 34.0 pg 31.5 MCHC 30.5 - 36.0 g/dL 33.6 RDW-CV 11.5 - 15.0 % 12.4 Platelet Count 150 - 400 k/uL 205 MPV 9.0 - 12.7 fL 10.9 Neut% % 51.4 Abs Neut (ANC) 1.45 - 7.50 k/uL 3.84 Lymph% % 34.1 Abs Lymph 1.00 - 4.00 k/uL 2.55 Bradley% % 9.1 Abs Bradley <0.87 k/uL 0.68 Eosin% % 4.0 Abs Eosin <0.46 k/uL 0.30 Baso% % 1.1 Abs Baso <0.11 k/uL 0.08 Immature Gran % % 0.3 IMMATURE GRANS (ABS) <0.10 k/uL <0.03 NRBC /100 WBC 0.0 Absolute nRBC <0.01 k/uL <0.01 DTYPE Auto Protein, Total 6.3 - 8.0 g/dL 6.8 Albumin 3.9 - 4.9 g/dL 4.6 Calcium 8.5 - 10.2 mg/dL 9.4 Bilirubin, Total 0.2 - 1.3 mg/dL 1.2 Alkaline Phosphatase 38 - 113 U/L 88 AST 14 - 40 U/L 22 ALT 10 - 54 U/L 27 Glucose 74 - 99 mg/dL 116 (H) BUN 9 - 24 mg/dL 15 Creatinine 0.73 - 1.22 mg/dL 0.94 Sodium 136 - 144 mmol/L 141 Potassium 3.7 - 5.1 mmol/L 4.4 Chloride 97 - 105 mmol/L 103 CO2 22 - 30 mmol/L 27 Anion Gap 9 - 18 mmol/L 11 eGFR >=60 mL/min/1.73m 79 Cholesterol, Total <200 mg/dL 125 Triglyceride <150 mg/dL 74 HDL Cholesterol >39 mg/dL 51 Non HDL Cholesterol <130 mg/dL 74 Fasting Time hrs 12 VLDL Cholesterol <30 mg/dL 15 TC:HDL Ratio <5.10 2.45 LDL Cholesterol <100 mg/dL 59 LDL:HDL Ratio <2.54 1.16 Hemoglobin A1C 4.3 - 5.6 % 5.8 (H) Estimated Average Glucose mg/dL 120 WSR 0 - 15 mm/hr 2 LD 135 - 225 U/L 150 MEDICATIONS: Current Outpatient Medications Medication Sig atorvastatin (LIPITOR) 80 mg tablet Take 1 tablet by mouth once daily. aspirin 81 mg cap Take by mouth. No current facility-administered medications for this visit. 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 PAST SURGICAL HISTORY Procedure Laterality Date COLECTOMY PRTL W/COLOPROCTOSTOMY 04-10-13 Colonoscopy COLONOSCOPY 07/04/17 COLONOSCOPY FLX DX W/COLLJ SPEC WHEN PFRMD 02/22/2013 Colonoscopy COLONOSCOPY VIA STOMA W OR W/O BRS/WSH 04/27/14 PAST SURGICAL HISTORY OF lymph node biopsy PROCTOSGMDSC RGD DX W/WO COLLJ SPEC BR/WA SPX 03/07/13 Rigid sigmoidoscopy FAMILY HISTORY Problem Relation Age of Onset Cancer Mother unknown type, at age 31 other (possible overdose [Other]) Father age 61 Social History Tobacco Use Smoking status: Every Day Packs/day: 0.50 Years: 63.00 Additional pack years: 0.00 Total pack years: 31.50 Types: Cigarettes Smokeless tobacco: Never Tobacco comments: quitting Substance Use Topics Alcohol use: No Drug use: No Reviewed current medications, allergies, past medical history, surgical history, family history and social history today. REVIEW OF SYSTEMS All other reviewed and negative other than HPI. HEALTH MAINTENANCE: Reviewed health maintenance issues today and recommended the following in detail. There are no preventive care reminders to display for this patient. VITALS: BP 136/78 Pulse 62 Ht 167.6 cm (5' 6 ) Wt 59.2 kg (130 lb 9.6 oz) SpO2 95% BMI 21.08 kg/m Last 4 Encounter Wt Readings: Date: Wt: 06/16/2023 58.5 kg (129 lb) 12/25/2022 56.2 kg (124 lb) 11/27/2022 55.8 kg (123 lb) 11/20/2022 56 kg (123 lb 6.4 oz) PHYSICAL EXAMINATION: General appearance: Well appearing, alert, in no acute distress, well-hydrated, well nourished. Skin: Skin color, texture, turgor normal, no suspicious rashes or lesions Head: Normocephalic, no masses, lesions, tenderness or abnormalities Neck: large immobile firm mass on left neck. ? Difference in size. Nontender. Not red or warm. No other masses noted. No axillary la Lungs: Lungs clear to auscultation. No wheezing, rhonchi, rales Heart: RRR without murmur, gallop, or rubs. No ectopy Abdomen: Normal abdominal exam, Abdomen soft, non-tender. Bowel sounds normal. No masses, organomegaly ASSESSMENT/PLAN: 1. Neck mass - ICD9: 784.2, ICD10: R22.1 (primary diagnosis) - explained waiting until end july is unacceptable. Needs to see someone sooner. Likely will need biopsy. 2. Mixed hyperlipidemia - ICD9: 272.2, ICD10: E78.2 - Controlled - Continue current medications - Counseled on healthy diet and regular exercise - ATORVASTATIN 80 MG TABLET 3. History of lymphoma - ICD9: V10.79, ICD10: Z85.72 - as above. 4. Prediabetes - ICD9: 790.29, ICD10: R73.03 - will follow. Rancho Fontenot MD documented in this encounter [facility] 06-19-2023 Miscellaneous Notes Spoke with patient spouse and scheduled for first available at [place]. Kim Rangel 1st call attempt, unable to leave Spoke with patient and informed of result and ENT referral. Sending to schedulers. Patient aware someone will call to schedule. Becky Pool Does show a lump that needs further evaluated. Set up with ent soon. I attempted to call myself but no answer and mailbox is full. Please call and get set up. documented in this encounter [facility] 06-18-2023 Note HNO ID: [id number] Author: FLAVIO RAMESH RT(R) Service: ? Author Type: Corporate Statistical Financial Analyst Type: Progress Notes Filed: 06/18/2023 13:48 Note Text: Radiology Service Progress Note DATE OF SERVICE: June 18, 2023 TIME: 1:47 PM PATIENT IDENTITY VERIFICATION COMPLETED USING TWO (2) STANDARD IDENTIFIERS: Name and Date of confirmed by patient verbally. FALL SCREENING: Has the patient had 2 falls in the last year or 1 fall with injury or currently using an Ambulatory Assistive Device (Walker, Cane, Wheelchair, Crutches, etc.)? No PATIENT GENDER DATA: Male PATIENT RELEVANT IMPLANT DATA REVIEWED: Yes PATIENT PRESENTS WITH AN IMPLANTABLE OR ATTACHED HAND SINGER: No ALLERGIES: Reviewed and unchanged CONTRAST ALLERGY: NO. EXAM: CT -CONTRAST INDUCED NEPHROPATHY RISK FACTORS: Patient age > 60 years CREATININE: Creatinine Date Value Ref Range Status 06/16/2023 0.94 0.73 - 1.22 mg/dL Final 11/20/2022 0.90 0.73 - 1.22 mg/dL Final 06/13/2022 0.96 0.73 - 1.22 mg/dL Final Estimated Glomerular Filtration Rate Date Value Ref Range Status 06/16/2023 79 >=60 mL/min/1.73m? Final Comment: Estimated Glomerular Filtration Rate (eGFR) is calculated using the 2020 CKD-EPI creatinine equation. This equation utilizes serum creatinine, sex, and age as parameters. The creatinine assay has traceable calibration to isotope dilution-mass spectrometry. Refer to KDIGO guidelines for clinical interpretation. In patients with unstable renal function, e.g. those with acute kidney injury, the eGFR may not accurately reflect actual GFR. eGFR- Date Value Ref Range Status 06/03/2017 >60 Final P.O.C.T. RESULTS: POC done: Yes, See Lab Tab June 18, 2023 TREATMENT: N/A PERIPHERAL IV DATA: Ambulatory: A peripheral IV was started in the Left antecubital site with a Angio cath: 22 gauge. RADIOLOGY DEPARTMENT: CT; Exam(s) Completed: Neck SIGNATURE: TYESHA HowardR) PATIENT NAME: Vick Reinoso DATE: June 18, 2023 TIME: 1:47 PM [facility] 06-18-2023 Miscellaneous Notes Ok. Will postpone Patient doesn't understand well over the phone what he would need to change. Would like to discuss at his visit on 06/30/23. Can you make a note of this to go over? Labs show his sugars are in prediabetic range. Just watch starches and sweets in the diet. Recheck A1c in six months documented in this encounter [facility] 06-18-2023 History of Present illness Narrative Radiology Service Progress Note DATE OF SERVICE: June 18, 2023 TIME: 1:47 PM PATIENT IDENTITY VERIFICATION COMPLETED USING TWO (2) STANDARD IDENTIFIERS: Name and Date of confirmed by patient verbally. FALL SCREENING: Has the patient had 2 falls in the last year or 1 fall with injury or currently using an Ambulatory Assistive Device (Walker, Cane, Wheelchair, Crutches, etc.)? No PATIENT GENDER DATA: Male PATIENT RELEVANT IMPLANT DATA REVIEWED: Yes PATIENT PRESENTS WITH AN IMPLANTABLE OR ATTACHED HAND SINGER: No ALLERGIES: Reviewed and unchanged CONTRAST ALLERGY: NO. EXAM: CT -CONTRAST INDUCED NEPHROPATHY RISK FACTORS: Patient age > 60 years CREATININE: Creatinine Date Value Ref Range Status 06/16/2023 0.94 0.73 - 1.22 mg/dL Final 11/20/2022 0.90 0.73 - 1.22 mg/dL Final 06/13/2022 0.96 0.73 - 1.22 mg/dL Final Estimated Glomerular Filtration Rate Date Value Ref Range Status 06/16/2023 79 >=60 mL/min/1.73m Final Comment: Estimated Glomerular Filtration Rate (eGFR) is calculated using the 2020 CKD-EPI creatinine equation. This equation utilizes serum creatinine, sex, and age as parameters. The creatinine assay has traceable calibration to isotope dilution-mass spectrometry. Refer to KDIGO guidelines for clinical interpretation. In patients with unstable renal function, e.g. those with acute kidney injury, the eGFR may not accurately reflect actual GFR. eGFR- Date Value Ref Range Status 06/03/2017 >60 Final P.O.C.T. RESULTS: POC done: Yes, See Lab Tab June 18, 2023 TREATMENT: N/A PERIPHERAL IV DATA: Ambulatory: A peripheral IV was started in the Left antecubital site with a Angio cath: 22 gauge. RADIOLOGY DEPARTMENT: CT; Exam(s) Completed: Neck SIGNATURE: RT Lee(R) PATIENT NAME: Vick Reinoso DATE: June 18, 2023 TIME: 1:47 PM documented in this encounter [facility] 06-17-2023 Miscellaneous Notes A1c has been added. Vickie Morgan LPN Labs are stable, except sugars are up. Can we add A1c. If not have him come in for it documented in this encounter [facility] 06-16-2023 Note HNO ID: [id number] Author: RANCHO FONTENOT MD Service: ? Author Type: Physician Type: Progress Notes Filed: 06/16/2023 08:50 Note Text: Patient presents with: Mass: On left side of neck x2 weeks HPI: Patient presents today for office visit for evaluation of a lump. Is actually smaller than when he noticed it two weeks ago. No other masses. Has a hx of lymphoma x 2 that was diagnosed with lymphadenopathy. No tenderness or redness. Denies sore throat, cough. No congestion. No ear pain. No sinus issues. No masses elsewhere. No fever or chills. No itching MEDICATIONS: Current Outpatient Medications Medication Sig atorvastatin (LIPITOR) 80 mg tablet Take 1 tablet by mouth once daily. aspirin 81 mg cap Take by mouth. No current facility-administered medications for this visit. 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00 Additional pack years: 0.00 Total pack years: 31.50 Types: Cigarettes Smokeless tobacco: Never Tobacco comments: quitting Substance Use Topics Alcohol use: No Drug use: No Reviewed current medications, allergies, past medical history, surgical history, family history and social history today. REVIEW OF SYSTEMS All other reviewed and negative other than HPI. HEALTH MAINTENANCE: Reviewed health maintenance issues today and recommended the following in detail. RSV Vaccine(1 - 1-dose 60+ series) Never done Influenza Vaccine(1) due on 01/15/2023 Advance Directive Discussion is his surrogate Depression Assessment Never done VITALS: BP 128/70 Pulse (!) 58 Resp 16 Wt 58.5 kg (129 lb) SpO2 95% BMI 20.82 kg/m? Last 4 Encounter Wt Readings: Date: Wt: 06/16/2023 58.5 kg (129 lb) 12/25/2022 56.2 kg (124 lb) 11/27/2022 55.8 kg (123 lb) 11/20/2022 56 kg (123 lb 6.4 oz) PHYSICAL EXAMINATION: General appearance: Well appearing, alert, in no acute distress, well-hydrated, well nourished. Skin: Skin color, texture, turgor normal, no suspicious rashes or lesions Head: Normocephalic, no masses, lesions, tenderness or abnormalities Eyes: Anicteric sclera. Pupils are equally round and reactive to light. Extraocular movements are intact. Ears: External ears normal, canals clear Nose/Sinuses: Nares normal, septum midline, mucosa normal, no drainage or sinus tenderness Oropharynx: Lips, mucosa, and tongue normal, teeth and gums normal, oropharynx normal Neck: Supple, 3-4 cm posterior left neck mass. Nontender. No other lymphadenopathy noted. No axillary or inguinal masses. Lungs: Lungs clear to auscultation. No wheezing, rhonchi, rales Heart: RRR without murmur, gallop, or rubs. No ectopy Abdomen: Normal abdominal exam, Abdomen soft, non-tender. Bowel sounds normal. No masses, organomegaly ASSESSMENT/PLAN: 1. Cervical mass - ICD9: 622.8, ICD10: N88.8 (primary diagnosis) - get labs and ct. Follow up after. May require biopsy depending on imaging. Red flags for re-assessment reviewed with patient in detail. - CBC + DIFF - SED RATE WESTERGREN - LD LACTATE DEHYDRO - BASIC METABOLIC PNL - DEPRESSION SCREENING/ASSESSMENT - ADVANCE CARE PLAN DISCUSSION - CT NECK SOFT TISSUE W IVCON - IV CONTRAST (RADIOLOGY PROCEDURE) 2. History of lymphoma - ICD9: V10.79, ICD10: Z85.72 - CBC + DIFF - SED RATE WESTERGREN - LD LACTATE DEHYDRO - BASIC METABOLIC PNL - DEPRESSION SCREENING/ASSESSMENT - ADVANCE CARE PLAN DISCUSSION - CT NECK SOFT TISSUE W IVCON - IV CONTRAST (RADIOLOGY PROCEDURE) Rancho Fontenot MD [facility] 12-25-2022 Note HNO ID: [id number] Author: Rancho Fontenot MD Service: ? Author Type: Physician Type: Progress Notes Filed: 12/25/2022 11:39 AM Note Text: Patient presents with: Follow Up HPI: Patient presents today for office visit for 4 week follow up for Pneumonia. Needs refill on Atorvastatin. No issues with meds. Repeat CXR ok. IMPRESSION: No acute radiographic abnormality. Feeling good day today. No cough No shortness of breath No chest pain No wheezing Appetite is back to normal. Eating and drinking with no problem. Still smoking 1 PPD Has a AAA and follows with Dr Mckenzie. Discussed tobacco cessation, including risks of continued use. Offered assistance to help quit if patient desires. See Previous: Evaluated on 11/20/22 with complaints of chest congestion and cough. CXR showed pneumonia with white count being elevated. White count did improve. Continues on Doxycycline. Improved appetite and drinking. No worsening symptoms today. Denies chest pain and shortness of breath See previous: Loss of appetite and feels weak since Wednesday11/15/22. Refers to not feeling himself, feeling rundown. Has lost about 10lbs in the past week. No ear pain or sore throat. Denies fever No nausea or vomiting No diarrhea. Drinking fair Eating poor Chest xray: IMPRESSION: Bilateral lower lobes infiltrates as described above. A follow-up exam is recommended MEDICATIONS: Current Outpatient Medications Medication Sig atorvastatin (LIPITOR) 80 mg tablet Take 80 mg by mouth once daily. aspirin 81 mg cap Take by mouth. No current facility-administered medications for this visit. 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 PAST SURGICAL HISTORY Procedure Laterality Date COLECTOMY PRTL W/COLOPROCTOSTOMY 04-10-13 Colonoscopy COLONOSCOPY 07/04/17 COLONOSCOPY FLX DX W/COLLJ SPEC WHEN PFRMD 02/22/2013 Colonoscopy COLONOSCOPY VIA STOMA W OR W/O BRS/WSH 04/27/14 PAST SURGICAL HISTORY OF lymph node biopsy PROCTOSGMDSC RGD DX W/WO COLLJ SPEC BR/WA SPX 03/07/13 Rigid sigmoidoscopy FAMILY HISTORY Problem Relation Age of Onset Cancer Mother unknown type, at age 31 other (possible overdose [Other]) Father age 61 Social History Tobacco Use Smoking status: Every Day Packs/day: 0.50 Years: 63.00 Total pack years: 31.50 Types: Cigarettes Smokeless tobacco: Never Tobacco comments: quitting Substance Use Topics Alcohol use: No Drug use: No Reviewed current medications, allergies, past medical history, surgical history, family history and social history today. REVIEW OF SYSTEMS All other reviewed and negative other than HPI. VITALS: BP 134/86 Pulse 62 Ht 167.6 cm (5' 6 ) Wt 56.2 kg (124 lb) SpO2 96% BMI 20.01 kg/m? Last 4 Encounter Wt Readings: Date: Wt: 11/27/2022 55.8 kg (123 lb) 11/20/2022 56 kg (123 lb 6.4 oz) 06/13/2022 60.3 kg (133 lb) 11/07/2018 60.8 kg (134 lb) PHYSICAL EXAMINATION: General appearance: Well appearing, alert, in no acute distress, well-hydrated, well nourished. Skin: Skin color, texture, turgor normal, no suspicious rashes or lesions Head: Normocephalic, no masses, lesions, tenderness or abnormalities Lungs: Lungs clear to auscultation. No wheezing, rhonchi, rales Heart: RRR without murmur, gallop, or rubs. No ectopy Abdomen: Normal abdominal exam, Abdomen soft, non-tender. Bowel sounds normal. No masses, organomegaly ASSESSMENT/PLAN: 1. Bacterial pneumonia - ICD9: 482.9, ICD10: J15.9 (primary diagnosis) - resolved. 2. Abdominal aortic aneurysm (AAA) without rupture, unspecified part (HCC) - ICD9: 441.4, ICD10: I71.40 - 3. Essential (primary) hypertension - ICD9: 401.9, ICD10: I10 - Controlled - CBC + DIFF - COMP METABOLIC PANEL - LIPID PANEL BASIC 4. Mixed hyperlipidemia - ICD9: 272.2, ICD10: E78.2 - Controlled - Continue current medications - ATORVASTATIN 80 MG TABLET - CBC + DIFF - COMP METABOLIC PANEL - LIPID PANEL BASIC Rancho Fontenot MD [facility] 12-25-2022 History of Present illness Narrative Patient presents with: Follow Up HPI: Patient presents today for office visit for 4 week follow up for Pneumonia. Needs refill on Atorvastatin. No issues with meds. Repeat CXR ok. IMPRESSION: No acute radiographic abnormality. Feeling good day today. No cough No shortness of breath No chest pain No wheezing Appetite is back to normal. Eating and drinking with no problem. Still smoking 1 PPD Has a AAA and follows with Dr Mckenzie. Discussed tobacco cessation, including risks of continued use. Offered assistance to help quit if patient desires. See Previous: Evaluated on 11/20/22 with complaints of chest congestion and cough. CXR showed pneumonia with white count being elevated. White count did improve. Continues on Doxycycline. Improved appetite and drinking. No worsening symptoms today. Denies chest pain and shortness of breath See previous: Loss of appetite and feels weak since Wednesday11/15/22. Refers to not feeling himself, feeling rundown. Has lost about 10lbs in the past week. No ear pain or sore throat. Denies fever No nausea or vomiting No diarrhea. Drinking fair Eating poor Chest xray: IMPRESSION: Bilateral lower lobes infiltrates as described above. A follow-up exam is recommended MEDICATIONS: Current Outpatient Medications Medication Sig atorvastatin (LIPITOR) 80 mg tablet Take 80 mg by mouth once daily. aspirin 81 mg cap Take by mouth. No current facility-administered medications for this visit. 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 PAST SURGICAL HISTORY Procedure Laterality Date COLECTOMY PRTL W/COLOPROCTOSTOMY 04-10-13 Colonoscopy COLONOSCOPY 07/04/17 COLONOSCOPY FLX DX W/COLLJ SPEC WHEN PFRMD 02/22/2013 Colonoscopy COLONOSCOPY VIA STOMA W OR W/O [facility] 04/27/14 PAST SURGICAL HISTORY OF lymph node biopsy PROCTOSGMDSC RGD DX W/WO COLLJ SPEC BR/WA SPX 03/07/13 Rigid sigmoidoscopy FAMILY HISTORY Problem Relation Age of Onset Cancer Mother unknown type, at age 31 other (possible overdose [Other]) Father age 61 Social History Tobacco Use Smoking status: Every Day Packs/day: 0.50 Years: 63.00 Total pack years: 31.50 Types: Cigarettes Smokeless tobacco: Never Tobacco comments: quitting Substance Use Topics Alcohol use: No Drug use: No Reviewed current medications, allergies, past medical history, surgical history, family history and social history today. REVIEW OF SYSTEMS All other reviewed and negative other than HPI. VITALS: BP 134/86 Pulse 62 Ht 167.6 cm (5' 6 ) Wt 56.2 kg (124 lb) SpO2 96% BMI 20.01 kg/m Last 4 Encounter Wt Readings: Date: Wt: 11/27/2022 55.8 kg (123 lb) 11/20/2022 56 kg (123 lb 6.4 oz) 06/13/2022 60.3 kg (133 lb) 11/07/2018 60.8 kg (134 lb) PHYSICAL EXAMINATION: General appearance: Well appearing, alert, in no acute distress, well-hydrated, well nourished. Skin: Skin color, texture, turgor normal, no suspicious rashes or lesions Head: Normocephalic, no masses, lesions, tenderness or abnormalities Lungs: Lungs clear to auscultation. No wheezing, rhonchi, rales Heart: RRR without murmur, gallop, or rubs. No ectopy Abdomen: Normal abdominal exam, Abdomen soft, non-tender. Bowel sounds normal. No masses, organomegaly ASSESSMENT/PLAN: 1. Bacterial pneumonia - ICD9: 482.9, ICD10: J15.9 (primary diagnosis) - resolved. 2. Abdominal aortic aneurysm (AAA) without rupture, unspecified part (HCC) - ICD9: 441.4, ICD10: I71.40 - 3. Essential (primary) hypertension - ICD9: 401.9, ICD10: I10 - Controlled - CBC + DIFF - COMP METABOLIC PANEL - LIPID PANEL BASIC 4. Mixed hyperlipidemia - ICD9: 272.2, ICD10: E78.2 - Controlled - Continue current medications - ATORVASTATIN 80 MG TABLET - CBC + DIFF - COMP METABOLIC PANEL - LIPID PANEL BASIC Rancho Fontenot MD documented in this encounter [facility] 12-22-2022 Note HNO ID: [id number] Author: Amna Hu RT(R) Service: Radiology Author Type: Technologist Type: Progress Notes Filed: 12/22/2022 1:16 PM Note Text: Radiology Service Progress Note PATIENT NAME: Vick Reinoso DATE OF SERVICE: December 22, 2022 TIME: 1:09 PM PATIENT IDENTITY VERIFICATION COMPLETED USING TWO (2) IDENTIFIERS: Name and Date of confirmed by patient verbally. FALL SCREENING: Has the patient had 2 falls in the last year or 1 fall with injury or currently using an Ambulatory Assistive Device (Walker, Cane, Wheelchair, Crutches, etc.)? No PATIENT GENDER DATA: Male PATIENT RELEVANT IMPLANT DATA REVIEWED: Yes RADIOLOGY DEPARTMENT: General X-ray: Exam(s) Completed: Chest X-Ray PERIPHERAL IV DATA: Not applicable SIGNED BY: RT Stephania(R) December 22, 2022 1:09 PM [facility] 11-27-2022 Note HNO ID: [id number] Author: Rancho Fontenot MD Service: ? Author Type: Physician Type: Progress Notes Filed: 11/27/2022 11:50 AM Note Text: Patient presents with: Pneumonia: Follow up HPI: Patient presents today for office visit for 1 week follow up for pneumonia. Evaluated on 11/20/22 with complaints of chest congestion and cough. CXR showed pneumonia with white count being elevated. White count did improve. Continues on Doxycycline. Improved appetite and drinking. No worsening symptoms today. Denies chest pain and shortness of breath See previous: Loss of appetite and feels weak since Wednesday11/15/22. Refers to not feeling himself, feeling rundown. Has lost about 10lbs in the past week. No ear pain or sore throat. Denies fever No nausea or vomiting No diarrhea. Drinking fair Eating poor Chest xray: IMPRESSION: Bilateral lower lobes infiltrates as described above. A follow-up exam is recommended Current Outpatient Medications Medication Sig atorvastatin (LIPITOR) 80 mg tablet Take 80 mg by mouth once daily. aspirin 81 mg cap Take by mouth. doxycycline monohydrate 100 mg tablet Take 1 tablet by mouth twice daily for 10 days. benzonatate (TESSALON PERLES) 100 mg capsule Take 1 capsule by mouth three times daily as needed for cough. No current facility-administered medications for this visit. 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00 Total pack years: 31.50 Types: Cigarettes Smokeless tobacco: Never Tobacco comments: quitting Substance Use Topics Alcohol use: No Drug use: No Reviewed current medications, allergies, past medical history, surgical history, family history and social history today. REVIEW OF SYSTEMS All other reviewed and negative other than HPI. VITALS: BP 124/66 Pulse 78 Ht 167.6 cm (5' 6 ) Wt 55.8 kg (123 lb) SpO2 93% BMI 19.85 kg/m? Last 4 Encounter Wt Readings: Date: Wt: 11/20/2022 56 kg (123 lb 6.4 oz) 06/13/2022 60.3 kg (133 lb) 11/07/2018 60.8 kg (134 lb) 06/03/2017 64 kg (141 lb) PHYSICAL EXAMINATION: General appearance: Well appearing, alert, in no acute distress, well-hydrated, well nourished. Skin: Skin color, texture, turgor normal, no suspicious rashes or lesions Head: Normocephalic, no masses, lesions, tenderness or abnormalities Eyes: Anicteric sclera. Pupils are equally round and reactive to light. Extraocular movements are intact. Lungs: Lungs clear to auscultation. Slight wheeze in both bases Heart: RRR without murmur, gallop, or rubs. No ectopy Abdomen: Normal abdominal exam, Abdomen soft, non-tender. Bowel sounds normal. No masses, organomegaly Extremities: No deformities, edema, skin discoloration, clubbing or cyanosis. Good capillary refill. ASSESSMENT/PLAN: 1. Bacterial pneumonia - ICD9: 482.9, ICD10: J15.9 (primary diagnosis) - clinically is better. Finish meds. Xray in one month. Red flags for re-assessment reviewed with patient in detail. - XR CHEST 2V FRONTAL/LAT 2. Weight loss - ICD9: 783.21, ICD10: R63.4 - follow Rancho Fontenot MD RTO in four weeks. [facility] 11-27-2022 History of Present illness Narrative Patient presents with: Pneumonia: Follow up HPI: Patient presents today for office visit for 1 week follow up for pneumonia. Evaluated on 11/20/22 with complaints of chest congestion and cough. CXR showed pneumonia with white count being elevated. White count did improve. Continues on Doxycycline. Improved appetite and drinking. No worsening symptoms today. Denies chest pain and shortness of breath See previous: Loss of appetite and feels weak since Wednesday11/15/22. Refers to not feeling himself, feeling rundown. Has lost about 10lbs in the past week. No ear pain or sore throat. Denies fever No nausea or vomiting No diarrhea. Drinking fair Eating poor Chest xray: IMPRESSION: Bilateral lower lobes infiltrates as described above. A follow-up exam is recommended Current Outpatient Medications Medication Sig atorvastatin (LIPITOR) 80 mg tablet Take 80 mg by mouth once daily. aspirin 81 mg cap Take by mouth. doxycycline monohydrate 100 mg tablet Take 1 tablet by mouth twice daily for 10 days. benzonatate (TESSALON PERLES) 100 mg capsule Take 1 capsule by mouth three times daily as needed for cough. No current facility-administered medications for this visit. 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00 Total pack years: 31.50 Types: Cigarettes Smokeless tobacco: Never Tobacco comments: quitting Substance Use Topics Alcohol use: No Drug use: No Reviewed current medications, allergies, past medical history, surgical history, family history and social history today. REVIEW OF SYSTEMS All other reviewed and negative other than HPI. VITALS: BP 124/66 Pulse 78 Ht 167.6 cm (5' 6 ) Wt 55.8 kg (123 lb) SpO2 93% BMI 19.85 kg/m Last 4 Encounter Wt Readings: Date: Wt: 11/20/2022 56 kg (123 lb 6.4 oz) 06/13/2022 60.3 kg (133 lb) 11/07/2018 60.8 kg (134 lb) 06/03/2017 64 kg (141 lb) PHYSICAL EXAMINATION: General appearance: Well appearing, alert, in no acute distress, well-hydrated, well nourished. Skin: Skin color, texture, turgor normal, no suspicious rashes or lesions Head: Normocephalic, no masses, lesions, tenderness or abnormalities Eyes: Anicteric sclera. Pupils are equally round and reactive to light. Extraocular movements are intact. Lungs: Lungs clear to auscultation. Slight wheeze in both bases Heart: RRR without murmur, gallop, or rubs. No ectopy Abdomen: Normal abdominal exam, Abdomen soft, non-tender. Bowel sounds normal. No masses, organomegaly Extremities: No deformities, edema, skin discoloration, clubbing or cyanosis. Good capillary refill. ASSESSMENT/PLAN: 1. Bacterial pneumonia - ICD9: 482.9, ICD10: J15.9 (primary diagnosis) - clinically is better. Finish meds. Xray in one month. Red flags for re-assessment reviewed with patient in detail. - XR CHEST 2V FRONTAL/LAT 2. Weight loss - ICD9: 783.21, ICD10: R63.4 - follow Rancho Fontenot MD RTO in four weeks. documented in this encounter [facility] 11-23-2022 Miscellaneous Notes Spoke with and informed of results and repeat labs in a few weeks. She verbalized understanding. States patient just started with a mild itchy rash on his mid-upper back. Vick denies pain or any real discomfort. States it gets a little itchy but that's it. He has an appointment with Dr. Fontenot for follow up on 11/27/22. Becky Pool His white count was up, likely from his infection. Recheck in a few weeks when he is feeling better. documented in this encounter [facility] 11-21-2022 Miscellaneous Notes Both patient and his informed. Verbalized understanding. Scheduled for f/u on 11/[address] Po Pool Chest xray shows pneumonia. White count is up. Covid is negative. Continue doxy. Call if worsens at all. Schedule follow up in one week. documented in this encounter [facility] 11-20-2022 Note HNO ID: [id number] Author: RT Adriana(R) Service: Nuclear Medicine Author Type: Technologist Type: Progress Notes Filed: 11/20/2022 12:19 PM Note Text: Radiology Service Progress Note PATIENT NAME: Vick Reinoso DATE OF SERVICE: November 20, 2022 TIME: 12:13 PM PATIENT IDENTITY VERIFICATION COMPLETED USING TWO (2) IDENTIFIERS: Name and Date of confirmed by patient verbally. FALL SCREENING: Has the patient had 2 falls in the last year or 1 fall with injury or currently using an Ambulatory Assistive Device (Walker, Cane, Wheelchair, Crutches, etc.)? No PATIENT GENDER DATA: Male PATIENT RELEVANT IMPLANT DATA REVIEWED: Not Applicable RADIOLOGY DEPARTMENT: General X-ray: Exam(s) Completed: Chest X-Ray PERIPHERAL IV DATA: Not applicable SIGNED BY: RT Adriana(R) November 20, 2022 12:13 PM [facility] documented as of this encounter (statuses as of 12/26/2022) [facility]07-07-2023 History of Past illness Narrative* Problem Noted Date Diagnosed Date Resolved Date Altered bowel function 11/20/202212/25 History of colonic polyps 11/20/2022 Skin lesion 11/20/2022 12/25/2022 Benign neoplasm of colon 04/27/201404/2014 documented as of this encounter (statuses as of 06/19/2023) [address]07-2023 History of Past illness Narrative* Problem Noted Date Diagnosed Date Resolved Date Altered bowel function 11/20/202212/25 History of colonic polyps 11/20/2022 Skin lesion 11/20/2022 12/25/2022 Benign neoplasm of colon 04/27/201404/2014 documented as of this encounter (statuses as of 06/19/2023) [address]07-2023 History of Past illness Narrative* Problem Noted Date Diagnosed Date Resolved Date Altered bowel function 11/20/202212/25 History of colonic polyps 11/20/2022 Skin lesion 11/20/2022 12/25/2022 Benign neoplasm of colon 04/27/201404/2014 documented as of this encounter (statuses as of 06/23/2023) [address]07-2023 History of Past illness Narrative* Problem Noted Date Diagnosed Date Resolved Date Altered bowel function 11/20/202212/25 History of colonic polyps 11/20/2022 Skin lesion 11/20/2022 12/25/2022 Benign neoplasm of colon 04/27/201404/2014 documented as of this encounter (statuses as of 06/29/2023) [address]07-2023 History of Past illness Narrative* Problem Noted Date Diagnosed Date Resolved Date Altered bowel function 11/20/202212/25 History of colonic polyps 11/20/2022 Skin lesion 11/20/2022 12/25/2022 Benign neoplasm of colon 04/27/201404/2014 documented as of this encounter (statuses as of 06/30/2023) [facility]07-07-2023 NoteHNO ID: [id number] Author: Rancho Fontenot MD Service: ? Author Type: Physician Type: Progress Notes Filed: 11/20/2022 12:40 PM Note Text: Patient presents with: Chest Congestion HPI: Patient presents today for office visit for chest congestion with slight productive cough that started last 11/12/22. He smokes a pack of cigarettes a day. He was fishing up on [address] [place] week when the smoke from [place] was really bad. Refers to these symptoms starting then. Back in June was Dx with AAA. Seeing Vascular surgery. Denies chest pain and shortness of breath Loss of appetite and feels weak since Wednesday11/15/22. Refers to not feeling himself, feeling rundown. Has lost about 10lbs in the past week. No ear pain or sore throat. Denies fever No nausea or vomiting No diarrhea. Drinking fair Eating poor MEDICATIONS: Current Outpatient Medications Medication Sig atorvastatin (LIPITOR) 80 mg tablet Take 80 mg by mouth once daily. aspirin 81 mg cap Take by mouth. No current facility-administered medications for this visit. 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00 Pack years: 31.50 Types: Cigarettes Smokeless tobacco: Never Tobacco comments: quitting Substance Use Topics Alcohol use: No Drug use: No Reviewed current medications, allergies, past medical history, surgical history, family history and social history today. REVIEW OF SYSTEMS All other reviewed and negative other than HPI. VITALS: BP 110/58 Pulse 64 Ht 167.6 cm (5' 6 ) Wt 56 kg (123 lb 6.4 oz) SpO2 92% BMI 19.92 kg/m? Last 4 Encounter Wt Readings: Date: Wt: 11/20/2022 56 kg (123 lb 6.4 oz) 06/13/2022 60.3 kg (133 lb) 11/07/2018 60.8 kg (134 lb) 06/03/2017 64 kg (141 lb) PHYSICAL EXAMINATION: General appearance: Well appearing, alert, in no acute distress, well-hydrated, well nourished. nontoxic Skin: Skin color, texture, turgor normal, no suspicious rashes or lesions Head: Normocephalic, no masses, lesions, tenderness or abnormalities Eyes: Anicteric sclera. Pupils are equally round and reactive to light. Extraocular movements are intact. Ears: External ears normal, canals clear Nose/Sinuses: Nares normal, septum midline, mucosa normal, no drainage or sinus tenderness Oropharynx: Lips, mucosa, and tongue normal, teeth and gums normal, oropharynx normal Neck: Supple, no adenopathy; thyroid symmetric, normal size, no bruits Lungs: Lungs clear to auscultation. No wheezing, rhonchi, rales Heart: RRR without murmur, gallop, or rubs. No ectopy ASSESSMENT/PLAN: 1. Acute cough - ICD9: 786.2, ICD10: R05.1 (primary diagnosis) - Discussed risks and benefits of new medication with the patient. Advised them to call if any side effects or questions. Red flags for re-assessment reviewed with patient in detail. Call if symptoms worsen at all or if not better in one to two weeks Reviewed diagnosis and treatment options in detail. Questions were answered. Patient expressed understanding of treatment plan. - COVID WITH FLUA+B, ROUTINE - CBC + DIFF - BASIC METABOLIC PNL - XR CHEST 2V FRONTAL/LAT - DOXYCYCLINE MONOHYDRATE 100 MG TABLET - BENZONATATE 100 MG CAPSULE 2. Abdominal aortic aneurysm (AAA) without rupture, unspecified part (HCC) - ICD9: 441.4, ICD10: I71.40 - per vascular 3. Bronchitis - ICD9: 490, ICD10: J40 - COVID WITH FLUA+B, ROUTINE - CBC + DIFF - BASIC METABOLIC PNL - XR CHEST 2V FRONTAL/LAT - DOXYCYCLINE MONOHYDRATE 100 MG TABLET - BENZONATATE 100 MG CAPSULE 4. Weight loss - ICD9: 783.21, ICD10: R63.4 - CBC + DIFF - BASIC METABOLIC PNL - XR CHEST 2V FRONTAL/LAT Rancho Fontenot [facility]07-07-2023 History of Present illness Narrative* Rancho Fontenot MD - 11/20/2022 11:38 AM EDT Patient presents with: Chest Congestion HPI: Patient presents today for office visit for chest congestion with slight productive cough thatstarted last 11/12/22. He smokes a pack of cigarettes a day. He was [place] on [address] [facility] when the smoke from [place] was really bad. Refers to these symptoms starting then. Back in June was Dx with AAA. Seeing Vascular surgery. Denies chest pain and shortness of breath Loss of appetite and feels weak since Wednesday11/15/22. Refers to not feeling himself, feeling rundown. Has lost about 10lbs in the past week. No ear pain or sore throat. Denies fever No nausea or vomiting No diarrhea. Drinking fair Eating poor MEDICATIONS: Current Outpatient Medications Medication Sig atorvastatin (LIPITOR) 80 mg tablet Take 80 mg by mouth once daily. aspirin 81 mg cap Take by mouth. No current facility-administered medications for this visit. 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00 Pack years: 31.50 Types: Cigarettes Smokeless tobacco: Never Tobacco comments: quitting Substance Use Topics Alcohol use: No Drug use: No Reviewed current medications, allergies, past medical history, surgical history, family history andsocial history today. REVIEW OF SYSTEMS All other reviewed and negative other than HPI. VITALS: BP 110/58 Pulse 64 Ht 167.6 cm (5' 6 ) Wt 56 kg (123 lb 6.4 oz) SpO2 92% BMI 19.92 kg/m Last 4 Encounter Wt Readings: Date: Wt: 11/20/2022 56 kg (123 lb 6.4 oz) 06/13/2022 60.3 kg (133 lb) 11/07/2018 60.8 kg (134 lb) 06/03/2017 64 kg (141 lb) PHYSICAL EXAMINATION: General appearance: Well appearing, alert, in no acute distress, well-hydrated, well nourished. nontoxic Skin: Skin color, texture, turgor normal, no suspicious rashes or lesions Head: Normocephalic, no masses, lesions, tenderness or abnormalities Eyes: Anicteric sclera. Pupils are equally round and reactive to light. Extraocular movements are intact. Ears: External ears normal, canals clear Nose/Sinuses: Nares normal, septum midline, mucosa normal, no drainage or sinus tenderness Oropharynx: Lips, mucosa, and tongue normal, teeth and gums normal, oropharynx normal Neck: Supple, no adenopathy; thyroid symmetric, normal size, no bruits Lungs: Lungs clear to auscultation. No wheezing, rhonchi, rales Heart: RRR without murmur, gallop, or rubs. No ectopy ASSESSMENT/PLAN: 1. Acute cough - ICD9: 786.2, ICD10: R05.1 (primary diagnosis) - Discussed risks and benefits of new medication with the patient. Advised them to call if any sideeffects or questions. Red flags for re-assessment reviewed with patient in detail. Call if symptoms worsen at all or if not better in one to two weeks Reviewed diagnosis and treatment options in detail. Questions were answered. Patient expressed understanding of treatment plan. - COVID WITH FLUA+B, ROUTINE - CBC + DIFF - BASIC METABOLIC PNL - XR CHEST 2V FRONTAL/LAT - DOXYCYCLINE MONOHYDRATE 100 MG TABLET - BENZONATATE 100 MG CAPSULE 2. Abdominal aortic aneurysm (AAA) without rupture, unspecified part (HCC) - ICD9: 441.4, ICD10: I71.40 - per vascular 3. Bronchitis - ICD9: 490, ICD10: J40 - COVID WITH FLUA+B, ROUTINE - CBC + DIFF - BASIC METABOLIC PNL - XR CHEST 2V FRONTAL/LAT - DOXYCYCLINE MONOHYDRATE 100 MG TABLET - BENZONATATE 100 MG CAPSULE 4. Weight loss - ICD9: 783.21, ICD10: R63.4 - CBC + DIFF - BASIC METABOLIC PNL - XR CHEST 2V FRONTAL/LAT Rancho Fontenot MD [facility] Miscellaneous Notes* Telephone Encounter - Becky Pool - 06/15/2022 10:51 AM EST Patient advised. Becky Pool * Telephone Encounter - Rancho Fontenot MD - 06/15/2022 10:12 AM EST Perfect. To Er if any more pain before hand(I thought he might need imaging but was unable to orderover weekend) * Telephone Encounter - Becky Pool - 06/15/2022 10:02 AM EST Patient informed. Was back in ER Wednesday evening with the abdominal pain. CT revealed pretty severe Aortic Aneurysm. Referred to Vascular Surgery Dr. Eriberto Ortiz at [facility]. Appt scheduled for tomorrow 06/16/22 @ 11:00 Becky Pool * Telephone Encounter - Rancho Fontenot MD - 06/15/2022 9:51 AM EST Labs are ok except has some protein in the urine. Probably is ok but to be on the safe side. Recheck ua in one month [facility] History of Present illness Narrative* Rancho Fontenot MD - 06/13/2022 10:26 AM EST Patient presents with: Abdominal Pain HPI: Patient presents today for office visit for abdominal pains. Started evening with terrible pains across abdomen. Vomited once on and also had diarrhea. Had relief after vomiting and diarrhea. Took some Tylenol. Woke up Wednesday and felt fine. At some point decided to take some T ylenol yesterday for some discomfort. This morning at about 2 a.m complains of pain in upper abdomen on left side under ribs. Denied nausea and vomiting when this happened. Took Tylenol and pain wentaway. Eating and drinking ok. No fever. Has three episodes in all. Now feels ok. Diarrhea once. Vomiting once. Only lasts for shore time. Tylenol has taken it away each time and has been good after. Denies dysuria or frequency or blood in the urine. No changes in appetite or issues swallowing. No heartburn. No bloody or black stools. No constipation. No further diarrhea. His did have a gastro illness this week. No sore throat or cough or congestion. No issues with taste or smell No chest pain or shortness of breath. No back pain. Remoted had lymphoma treated over 10 years ago and last time in [address]. [address] that was negative in 2012. No masses. Aorta normal MEDICATIONS: Current Outpatient Medications Medication Sig clotrimazole-betamethasone (LOTRISONE) cream Apply 1 application to affected area twice daily. (Patient not taking: Reported on 11/07/2018 ) DIMENHYDRINATE (DRAMAMINE ORAL) Take by mouth. No current facility-administered medications for this visit. 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 PAST SURGICAL HISTORY Procedure Laterality Date COLONOSCOP W/ OR W/O [facility] SPEC 02/22/2013 Colonoscopy COLONOSCOPY 07/04/17 COLONOSCOPY VIA STOMA W OR W/O [facility] 04/27/14 PART REMOVAL COLON W COLOPROCTOSTOMY 04-10-13 Colonoscopy PAST SURGICAL HISTORY OF lymph node biopsy PROCTOSIGMOIDOSCOPY 03/07/13 Rigid sigmoidoscopy FAMILY HISTORY Problem Relation Age of Onset Cancer Mother unknown type, at age 31 other (possible overdose [Other]) Father age 61 Social History Tobacco Use Smoking status: Every Day Packs/day: 0.50 Years: 63.00 Pack years: 31.50 Types: Cigarettes Smokeless tobacco: Never Tobacco comments: quitting Substance Use Topics Alcohol use: No Drug use: No Reviewed current medications, allergies, past medical history, surgical history, family history andsocial history today. REVIEW OF SYSTEMS All other reviewed and negative other than HPI. VITALS: BP 118/74 Pulse 68 Temp 36.6 C (97.8 F) Ht 167.6 cm (5' 6 ) Wt 60.3 kg (133 lb) SpO2 95% BMI 21.47 kg/m Last 4 Encounter Wt Readings: Date: Wt: 11/07/2018 60.8 kg (134 lb) 06/03/2017 64 kg (141 lb) 03/02/2016 65.3 kg (144 lb) 11/11/2015 66 kg (145 lb 6.4 oz) PHYSICAL EXAMINATION: General appearance: Well appearing, alert, in no acute distress, well-hydrated, well nourished. Skin: Skin color, texture, turgor normal, no suspicious rashes or lesions Head: Normocephalic, no masses, lesions, tenderness or abnormalities Lungs: Lungs clear to auscultation. No wheezing, rhonchi, rales Heart: RRR without murmur, gallop, or rubs. No ectopy Abdomen: Normal abdominal exam, Abdomen soft, non-tender. Bowel sounds normal. No masses, organomegaly Extremities: No deformities, edema, skin discoloration, clubbing or cyanosis. Good capillary refill. ASSESSMENT/PLAN: 1. Abdominal discomfort in left upper quadrant - ICD9: 789.02, ICD10: R10.12 - is currently asymptomatic. His had similar symptoms this week with a gastro. Cannot do imaging etc today due to weekend. Red flags for re-assessment reviewed with patient in detail. -if worsens over weekend, to er. - light diet. Call me update on Wednesday. If need be, will recheck on Wednesday - CBC + DIFF - COMP METABOLIC PANEL - LIPASE BLD - URINALYSIS, WITH MICROSCOPIC - URINE CULTURE 2. History of lymphoma. If continues, consider ct etc. Rancho Fontenot MD [facility] History of Past illness Narrative* Problem Noted Date Resolved Date Benign neoplasm of colon 04/27/2014 014 documented as of this encounter (statuses as of 06/13/2022) [facility] History of Past illness Narrative* Problem Noted Date Resolved Date Benign neoplasm of colon 04/27/2014 014 documented as of this encounter (statuses as of 06/15/2022) [place] [address]-12-2014 History of Past illness Narrative* Problem Noted Date Resolved Date Benign neoplasm of colon 04/27/2014 014 documented as of this encounter (statuses as of 11/20/2022) [facility] History of Past illness Narrative* Problem Noted Date Diagnosed Date Resolved Date Benign neoplasm of colon 04/27/201404/2014 documented as of this encounter (statuses as of 11/21/2022) [facility] History of Past illness Narrative* Problem Noted Date Diagnosed Date Resolved Date Benign neoplasm of colon 04/27/201404/2014 documented as of this encounter (statuses as of 11/24/2022) [facility] History of Past illness Narrative* Problem Noted Date Diagnosed Date Resolved Date Benign neoplasm of colon 04/27/201404/2014 documented as of this encounter (statuses as of 11/27/2022) [facility] Diagnosis Abdominal discomfort in left upper quadrant- Primary Abdominal pain, left upper quadrant History of lymphoma Personal history of other lymphatic and hematopoietic neoplasm [facility] Diagnosis Proteinuria, unspecified type- Primary [facility] Diagnosis Acute cough- Primary Abdominal aortic aneurysm (AAA) without rupture, unspecified part (HCC) Bronchitis Bronchitis, not specified as acute or chronic Weight loss Loss of weight [facility]* Diagnosis Leukocytosis, unspecified type- Primary [facility] Diagnosis Bacterial pneumonia- Primary Bacterial pneumonia, unspecified Weight loss Loss of weight [facility] Diagnosis Bacterial pneumonia- Primary Bacterial pneumonia, unspecified Abdominal aortic aneurysm (AAA) without rupture, unspecified part (HCC) Essential (primary) hypertension Unspecified essential hypertension Mixed hyperlipidemia [facility] Diagnosis Cervical mass Other specified noninflammatory disorder of cervix History of lymphoma Personal history of other lymphatic and hematopoietic neoplasm [facility] Diagnosis Neck mass- Primary Swelling, mass, or lump in head and neck [facility] Diagnosis Hyperglycemia- Primary Other abnormal glucose [facility] Diagnosis Prediabetes- Primary Other abnormal glucose [facility] Diagnosis Neck mass- Primary Swelling, mass, or lump in head and neck Mixed hyperlipidemia History of lymphoma Personal history of other lymphatic and hematopoietic neoplasm Prediabetes Other abnormal glucose documented in this encounter [facility] Reason for Referral Specialty Diagnoses / Procedures Referred By Mervin singletary Referred To Contact CT IMAGING Diagnoses Cervical mass History of lymphoma Procedures CT NECK SOFT TISSUE W IVCON CT SOFT TISSUE NECK W/CONTRAST MATERIAL Rancho Fontenot MD [address] [place] [address] [place] [address] Referral ID Status Reason Start Date Expiration Date V isits Requested Visits Authorized [id number] Closed Auto-Generate d Referral 06/16/2023 07/15/2024 1 1 Specialty Diagnoses / Procedures Referred By Mervin singletary Referred To Contact Ent - Otolaryngology Diagnoses Neck mass Procedures CONSULT TO ENT OFFICE/OUTPATIENT [facility] MDM 60 MINUTES Rancho Fontenot MD [address] [place] [address] Referral ID Status Reason Start Date Expiration Date Visits Requested Visits Authorized [id number] Authorized PCP Requested Referral 06/18/2023 06/17/2024 1 1 Summary Purpose Family History No Family History Records Found Advance Directives No Advanced Directives Records Found Additional Source Comments Source Comments (unrecognize d section and content) In the event this informatio n is protected by the Federal Confidentiality of Alcohol and Drug Abuse Patient Records regulations: The Federal rules restrict any use of the information to criminally investigate or prosecute any alcohol or drug abuse patient.[facility] the event this information is protected by the Federal Confidentiality of Alcohol and Drug Abuse Patient Records regulations: The Federal rules restrict any use of the information to criminally investigate or prosecute any alcohol or drug abuse patient.[facility] the event this information is protected by the Federal Confidentiality of Alcohol and Drug Abuse Patient Records regulations: The Federal rules restrict any use of the information to criminally investigate or prosecute any alcohol or drug abuse patient.[facility] the event this information is protected by the Federal Confidentiality of Alcohol and Drug Abuse Patient Records regulations: The Federal rules restrict any use of the information to criminally investigate or prosecute any alcohol or drug abuse patient.[facility] the event this information is protected by the Federal Confidentiality of Alcohol and Drug Abuse Patient Records regulations: The Federal rules restrict any use of the information to criminally investigate or prosecute any alcohol or drug abuse patient.[facility] Hospital[facility] the event this information is protected by the Federal Confidentiality of Alcohol and Drug Abuse Patient Records regulations: The Federal rules restrict any use of the information to criminally investigate or prosecute any alcohol or drug abuse patient.[facility] the event this information is protected by the Federal Confidentiality of Alcohol and Drug Abuse Patient Records regulations: The Federal rules restrict any use of the information to criminally investigate or prosecute any alcohol or drug abuse patient.[facility] Hospital[facility] the event this information is protected by the Federal Confidentiality of Alcohol and Drug Abuse Patient Records regulations: The Federal rules restrict any use of the information to criminally investigate or prosecute any alcohol or drug abuse patient.[facility] Hospital[facility] the event this information is protected by the Federal Confidentiality of Alcohol and Drug Abuse Patient Records regulations: The Federal rules restrict any use of the information to criminally investigate or prosecute any alcohol or drug abuse patient.[facility] Hospital[facility] the event this information is protected by the Federal Confidentiality of Alcohol and Drug Abuse Patient Records regulations: The Federal rules restrict any use of the information to criminally investigate or prosecute any alcohol or drug abuse patient.[facility] Hospital[facility] the event this information is protected by the Federal Confidentiality of Alcohol and Drug Abuse Patient Records regulations: The Federal rules restrict any use of the information to criminally investigate or prosecute any alcohol or drug abuse patient.[facility] HospitalIn the event this information is protected by the Federal Confidentiality of Alcohol and Drug Abuse Patient Records regulations: The Federal rules restrict any use of the information to criminally investigate or prosecute any alcohol or drug abuse patient.[facility] Reason for Visit (unrecogniz ed section and content) Reason Comments Results Reason Comments Chest Congestion Reason Comments Pneumonia Follow up Reason Comments Follow Up Reason Comments Radiology CT Specialty Diagnoses / Procedures Referred By Contac t Referred To Contact CT IMAGING Diagnoses Cervical mass History of lymphoma Procedures CT NECK SOFT TISSUE W IVCON CT SOFT TISSUE NECK W/CONTRAST MATERIAL Rancho Fontenot MD [address] [place] [address] [place] [id number] Referral ID Status Reason Start Date Expiration Date V isits Requested Visits Authorized [id number] Closed Auto-Generate d Referral 06/16/2023 07/15/2024 1 1 Reason Comments Results Care Teams (unrecognized sec tion and content) Residential Mental Health Worker Relationship Specialty Start Date End Date Rancho Fontenot MD [address] [place], [place] [id number] PCP - General Family Medicine 09/21/12 Residential Mental Health Worker Relationship Specialty Start Date End Date Rancho Fontenot MD [address] [place], [place] [id number] PCP - General Family Medicine 09/21/12 Residential Mental Health Worker Relationship Specialty Start Date End Date Rancho Fontenot MD [address] [place], [place] [id number] PCP - General Family Medicine 09/21/12 Residential Mental Health Worker Relationship Specialty Start Date End Date Rancho Fontenot MD [address] [place] [address] PCP - General Family Medicine 09/21/12 Residential Mental Health Worker Relationship Specialty Start Date End Date Rancho Fontenot MD [address] [place], [place] [id number] PCP - General Family Medicine 09/21/12 Residential Mental Health Worker Relationship Specialty Start Date End Date Rancho Fontenot MD [address] [place] [address] PCP - General Family Medicine 09/21/12 Residential Mental Health Worker Relationship Specialty Start Date End Date Rancho Fontenot MD [address] [place], [place] [id number] PCP - General Family Medicine 09/21/12 Residential Mental Health Worker Relationship Specialty Start Date End Date Rancho Fontenot MD [address] [place], [place] [id number] PCP - General Family Medicine 09/21/12 Residential Mental Health Worker Relationship Specialty Start Date End Date Rancho Fontenot MD [address] [place] [address] PCP - General Family Medicine 09/21/12 Residential Mental Health Worker Relationship Specialty Start Date End Date Rancho Fontenot MD [address] [place] [address] PCP - General Family Medicine 09/21/12 Residential Mental Health Worker Relationship Specialty Start Date End Date Rancho Fontenot MD [address] [place], [place] [id number] PCP - General Family Medicine 09/21/12 (unrecognized sect ion and content) No Status Records Found INFORMATION SOURCE (unrecogn ized section and content) FOR RECORDS PERTAINING TO PATIENTS WHO ARE OR HAVE BEEN ENROLLED IN A CHEMICAL DEPENDENCY/SUBSTANCEABUSE PROGRAM, SOME INFORMATION MAY BE OMITTED. This clinical summary was aggregated from multiple sources. Caution should be exercised in using it in the provision of clinical care. This summary normalizes information from multiple sources, and as a consequence, information in this document may materially change the coding, format and clinical context of patient data. In addition, data may be omitted in some cases. CLINICAL DECISIONS SHOULD BE BASED ON THE PRIMARY CLINICAL RECORDS. [facility] [employer] provides no warranty or guarantee of the accuracy or completeness of information in this document.
== END | disposition home or self-care (01) ==
LOC: LAB 09:24
PROVIDERS: PCP Family Medicine; Referring Provider Otolaryngology; Visit Provider Otolaryngology
DX: R22.1 Localized swelling, mass and lump, neck (principal)
CPT/HCPCS: 10021; 88161; 88305; 88341; 88342

== ENCOUNTER → 2024-09-14 | Outpatient (CLI) | payer MEDICARE, BC, SELFPAY ==
--- NOTE | 2024-09-14 14:26 | CT_ITS ---
PROCEDURE: CTA ABD/PELVIS W/ CONTRAST, 09/14/2024 REASON FOR EXAM: AAA TECHNIQUE: CTA abdomen and pelvis was performed with IV contrast. Multiplanar reformats and a rotating MIP reconstruction were generated. IV CONTRAST: Isovue 370 VOLUME: 100ML RADIATION DOSE SUMMARY: CTDlvol: 42.74+ 7.98 mGy DLP: 405.95 mGycm One or more dose reduction techniques were used (e.g., Automated exposure control, adjustment of the mA and/or kV according to patient size, use of iterative reconstruction technique). COMPARISON: 12/08/2022 FINDINGS: Note the exam was optimized for evaluation of the arterial vasculature rather than venous structures, soft tissues, and remaining abdominopelvic viscera. Abdominal aorta: Severe diffuse atherosclerosis with tortuosity. Abdominal aortic aneurysm with considerable mural thrombus and/or soft atherosclerotic plaque has enlarged slightly, now measuring 5.9 x 5.8 cm, previously 5.0 x 5.0 cm. Questionable trace stranding posteriorly. No abnormal non-rounded morphology. Celiac: Replaced LEFT hepatic artery arising from the LEFT gastric artery, normal variant. SMA: Patent. RIGHT Renal artery: Patent main renal artery. Two RIGHT renal arteries arising from the aorta in the region of the inferior aspect of the above described abdominal aortic aneurysm were previously patent are now barely visible, uncertain if currently patent, limited evaluation due to minute size, however occlusion of at least 1 of the 2 accessory renal arteries is suspected given findings suspicious for a RIGHT lower pole renal infarct as below. LEFT Renal artery: Unremarkable. ELVIN: Not well seen as before, possibly occluded. Common iliacs: Severe atherosclerosis. Mild focal stenosis along the proximal and mid RIGHT common iliac artery.. External iliacs: Moderate atherosclerosis. Mild/moderate focal stenosis at the origin of the LEFT external iliac artery. Internal iliacs: Moderate atherosclerosis. Mild focal stenosis proximally on the LEFT. 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 Other vascular: Femoral atherosclerosis without high-grade stenosis within the [id number].. Other nonvascular: Nodules in the LEFT lung base up to 18 mm were not present on previous drug abuse worker images, possibly calcified however this is not definite. Airspace disease in the RIGHT lung base with endobronchial debris. At least trace to mild aortic annular calcification. Slightly enlarged RIGHT atrium and ventricle suggested, partially imaged. Coronary atherosclerosis. Tiny hepatic hypodensity too small to characterize, but similar to 06/13/2022, likely cyst or hemangioma.. New hypoenhancement of the RIGHT renal lower pole consistent with an infarct as above. Mass-effect on bowel loops by the abdominal aortic aneurysm. Rectal anastomosis. Diverticulosis. 2.5 x 1.7 cm nonspecific nodular lesion along the posterior aspect of the cecum/ascending colon previously measured 2.3 x 1.9 cm on 06/13/2022. Appendix is not identified in this area. Prostatomegaly. Partially imaged at least moderate LEFT hydrocele with high-density layering components, nonspecific, not well evaluated by CT. Demineralization. Mild spondylosis. Lumbar levoscoliosis. CT/CTA Abd/Pelvis W/WO Contrast IMPRESSION: 1. Severe atherosclerosis with enlarged now 5.9 cm abdominal aortic aneurysm. Questionable trace stranding posteriorly is nonspecific but could conceivably be seen in the setting of impending rupture. No abnormal morphology to confirm this. If the patient is symptomatic, recommend referral to the ED. Regardless, recommend pr ompt referral to vascular surgery or IR for definitive management as aneurysms of this size are at increased risk for ruptu re. 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 2. Airspace disease in the RIGHT lung base with endobronchial debris. Findings suggest aspiration with possible mild pneumonia/pneumonitis. 3. 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 On veronique elation with previous CTA, this is probably related to occlusion at least 1 of 2 accessory RIGHT renal arteries which were much better seen previously, now barely perceptible and of uncertain patency. 4. Nodules in the LEFT lung base up to 18 mm were not present on previous drug abuse worker images, possibly calcified however this is not definite. Recommend CT chest. 5. 2.5 x 1.7 cm nonspecific nodular lesion along the posterior aspect of the ce cum/ascending colon previously measured 2.3 x 1.9 cm on 06/13/2022. Given that the appendix is not identified, this could reflec t an abnormal appendix. Mucocele/low-grade appendiceal neoplasm not excluded. Clinical follow-up recommended. 6. Additional description as above. [place] Alert: #1-3 The critical information above was relayed directly by me by telephone to Anna Marshall on 09/15/2024 at 1:13 pm MST with readback verification. Reading Location: [id number]
== END | disposition home or self-care (01) ==
LOC: CT 14:25
PROVIDERS: PCP Family Medicine; Referring Provider Physician Assistant; Visit Provider Physician Assistant
DX: I71.40 Abdominal aortic aneurysm, without rupture, unspecified (principal)
CPT/HCPCS: 74174; Q9967

== ENCOUNTER 2024-09-17 06:11 | Emergency (ER) | payer MEDICARE, BC, SELFPAY ==
[2024-09-17 06:12] VITALS: BP 197/77; PULSE 67; RESP 18; TEMP 36.8; O2SAT 92; BMI 22.0
--- NOTE | 2024-09-17 06:22 | CT_ITS ---
PROCEDURE: CTA ABD/PELVIS W/WO CONTRAST 09/17/2024 REASON FOR EXAM: ABDOMINAL PAIN, KNOWN AAA TECHNIQUE: CTA imaging of the abdomen and pelvis with intravenous contrast. Multiplanar and multisequence images were obtained. CONTRAST: Isovue 370 VOLUME: 100 mL One or more dose reduction techniques were used (e.g., Automated exposure control, adjustment of the mA and/or kV according to patient size, use of iterative reconstruction technique). RADIATION DOSE SUMMARY: CTDlvol: 8 mGy DLP: 407 mGycm COMPARISON: CT abdomen/pelvis dated 09/14/2024. FINDINGS: Nonvascular: Bronchiectasis and fibrotic changes seen within the lower lung zones, [id number]. This may suggest chronic lung disease. There is no pleural pericardial effusion. There is no free air within the abdomen and pelvis. Hypodense structures seen within the left hepatic lobe measures up to 8 mm, incompletely characterized but may suggest a cyst. No enhancing masses seen within the liver. The gallbladder, spleen, adrenals, pancreas are grossly within normal limits. The bilateral kidneys are without evidence of hydronephrosis or obstructive uropathy. Urinary bladder is distended. The prostate is borderline prominent measuring up to 5 cm in transverse dimension. Postsurgical changes seen within the rectosigmoid colon. Correlate clinically. There are scattered sigmoid diverticulosis without evidence of acute diverticulitis. There is no bowel obstruction. The appendix is not definitively visualized. No abnormal free fluid is seen within the abdomen and pelvis. Vascular: A large infrarenal abdominal aortic aneurysm is noted measuring up to 6 cm AP x 5.9 cm TV by 8.4 cm craniocaudal. There is a large intramural/noncalcified component within the aneurysm. Extensive atheromatous calcification seen within the aorta and its branches. There is no evidence of rupture at this time. The origin of the celiac, SMA and bilateral renal arteries are patent. The ELVIN is not visualized. Extensive atheromatous calcification seen within the bilateral iliofemoral arteries without evidence of narrowing or occlusion. No acute osseous abnormalities identified. CT/CTA Abd/Pelvis W/WO Contrast IMPRESSION: Infrarenal abdominal aortic aneurysm measuring up to 6 cm. This is unchanged wh en compared to prior examination dated 09/14/2024 when measured by the same observer. Chronic changes seen at the lung bases. Other findings as above. Reading Location: [id number]
--- NOTE | 2024-09-17 06:30 | EX.ED.DYSGE1 ---
HPI History of Present Illness Chief Complaint: Abd Pain Narrative Narrative: Chief complaint and HPI: Abdominal pain. History taken by patient as well as medical record. 89-year-old gentleman with history of tobacco abuse and known AAA presents for evaluation of abdominal pain. Abdominal pain started approximately 4 AM and woke him up from sleep. He states the pain started to improve on arrival here to the emergency department and has resolved. He states Dr. Ortiz told him to present to the emergency department if he ever develops abdominal pain. He denies any fever, chills, shortness of breath, chest pain, nausea, vomiting, diarrhea, constipation, dysuria. Review of systems: See HPI Medications: As listed on the chart Allergies: As listed on the chart PFSH: Per chart Vital signs: As listed on the chart. Reviewed. Physical exam: Gen: A&O x3, NAD Head: Normocephalic, atraumatic Eyes: No sclera icterus, conjunctiva clear ENT: Moist mucous membranes Neck: Trachea midline, No JVD CV: RRR, no murmurs, no peripheral edema Resp: Lungs CTA BL, no w/r/c GI: Abd soft, non-distended, non-tender, no r/r/g, no pulsatile mass appreciated : No CVA tenderness Musc: Full ROM, no deformity, DP/PT pulses +2 bilaterally Skin: Warm, dry Neuro: Alert, oriented, grossly intact, sensation intact Psych: Cooperative, appropriate mood and affect [facility] Medical History Change in bowel habits History of colon polyps Non-Hodgkin lymphoma Skin lesion Home Medications ?Medication ?Instructions ?Recorded ?Last Taken ?Type atorvastatin 80 mg tablet 80 mg PO DAILY #30 tabs 06/17/22 Unknown Rx Allergy/AdvReac Type Severity Reaction Status Date / Time No Known Allergies Allergy Verified 09/17/24 06:11 Family History Brother Heart disease Surgical History History of colectomy S/P colonoscopy Status post excisional biopsy Social History Smoking Status: Unknown if ever smoked alcohol intake: never EXAM Physical Exam Const Vital Signs: 09/17/24 06:12 09/17/24 06:44 Temperature 98.3 F Temperature Source Oral Pulse Rate 67 58 L Respiratory Rate 18 16 Blood Pressure 197/77 H 168/86 H Blood Pressure Mean 117 113 Pulse Ox 92 98 Oxygen Delivery Method Room Air Room Air MDM MDM MDM Narrative Medical decision making narrative: 89-year-old gentleman with history of tobacco abuse and known AAA presents for evaluation of abdominal pain. Abdominal pain started approximately 4 AM and woke him up from sleep. He states the pain started to improve on arrival here to the emergency department and has resolved. On chart review, patient had a CTA abdomen and pelvis performed on 09/14. He has severe atherosclerosis with enlarged now 5.9 cm abdominal aortic aneurysm. Questionable trace stranding posteriorly is nonspecific but could conceivably be seen in the setting of impending rupture. Differential diagnosis includes but is not limited to AAA rupture, gastroenteritis, bowel pains, UTI, suspect less likely ACS. On arrival, patient is hypertensive with a blood pressure of 197/77. Given that he has no history of hypertension, will monitor before treating. NS bolus, Zofran, morphine ordered. Laboratory workup ordered including CTA abdomen and pelvis. Patient not endorsing any abdominal pain therefore morphine DC'd. Shortly after leaving the room, patient's blood pressure improved to 168/86. CBC without leukocytosis or anemia. At this point in time, patient's CMP, lipase, UA, troponin, CTA abdomen and pelvis pending. Patient was signed out to oncoming physician, final disposition pending results. Lab Data Labs: Laboratory Results - last 24 hr 09/17/24 06:25 WBC 7.5 RBC 4.86 Hgb 15.0 Hct 43.9 MCV 90.3 MCH 30.9 MCHC 34.2 RDW Std Deviation 42.4 RDW Coeff of Carlos 12.8 Plt Count 229 MPV 10.0 Immature Gran % (Auto) 0.400 Neut % (Auto) 56.9 Lymph % (Auto) 27.6 [place] % (Auto) 10.7 H Eos % (Auto) 3.3 Baso % (Auto) 1.1 H Absolute Neuts (auto) 4.3 Absolute Lymphs (auto) 2.08 Nucleated RBC % 0 Discharge Plan Triage Chief Complaint: Abd Pain ED Provider: Juan M Mendez Dx/Rx/DC Orders Prescriptions: No Action atorvastatin 80 mg tablet 80 mg PO DAILY Qty: 30 5RF Primary Care Provider: Stanley Fontenot Referrals: Stanley Fontenot MD [Primary Care Provider] - Print Language: Romansh
[2024-09-17 06:34] LABS: Absolute Lymphocyte Count 2.08 X10^3/uL (0.83-4.51); Absolute Neutrophil Count 4.3 X10^3/uL (2.0-7.7); Basophil# 0.08 X10^3/uL; Basophil% 1.1 % (0-1); Eosinophil# 0.25 X10^3/uL; Eosinophils% 3.3 % (0-5); Hematocrit 43.9 % (40-54); Lymphocyte # 2.08 X10^3/ul (0.83-4.51); Lymphocyte % 27.6 % (19-41); Mean Corp Hgb Conc 34.2 g/dL (32-36); Mean Corpuscular Hgb 30.9 pg (27.0-32.0); Mean Corpuscular Volume 90.3 fL (80-94); Monocyte# 0.81 X10^3/uL; Monocyte% 10.7 % (0-10); NRBC Flagged by Analyzer 0 % (0-5); Neutrophil # 4.29 X10^3/uL (2.7-7.7); Neutrophil % 56.9 % (47-70); Platelet Count 229 K/mm3 (150-450); RBC Distribution Width CV 12.8 % (11.6-14.6); RBC Distribution Width SD 42.4 fl (35.1-43.9); Red Blood Count 4.86 M/mm3 (4.6-6.2); White Blood Count 7.5 K/mm3 (4.4-11.0)
[2024-09-17] MEDS: 0.9% Normal Saline (1000mL) 1,000 ML 1000 ML IV (06:40)
[2024-09-17 06:44] VITALS: BP 168/86; PULSE 58; RESP 16; O2SAT 98
[2024-09-17 07:04] LABS: Bacteria 0 SEEN /hpf (None Seen); Mucous, Urine 0 SEEN /hpf (<or=2+); Red Blood Cells-Urine 0 SEEN /hpf (0-5); Squamous Epithelial Cells - UA 0 SEEN /hpf (0-5); White Blood Cells 0 SEEN /hpf (0-5)
[2024-09-17 07:05] LABS: ALB/GLOB Ratio 1.4 RATIO (0.9-2.4); AST(SGOT) 27 U/L (<=37); Alanine Aminotransfer ALT/SGPT 23 U/L (<=46); Albumin, Serum 4.2 g/dL (3.4-4.8); Alkaline Phosphatase 95 U/L (40-129); Anion Gap 10 (5-15); BUN 19 mg/dL (4-19); BUN/Creat Ratio 18.6 RATIO (10-20); Calcium,Total 9.5 mg/dL (7.6-11.0); Carbon Dioxide 25.4 mmol/L (21.0-32.0); Chloride 103 mmol/L (98-108); Creatinine, Serum 0.99 mg/dL (0.70-1.20); EST Glomerular Filtration Rate 73 (>60); Estimated Creatinine Clearance 42.46 ml/min (50-250); Globulin 3.1 g/dL (2.2-4.2); Glucose 96 mg/dL (70-99); Lactic Acid 1.5 mmol/L (0.0-2.0); Lipase 27 U/L (13-75); Potassium 3.9 mmol/L (3.3-5.1); Protein, Total 7.3 g/dL (5.9-8.4); Sodium Level 139 mmol/L (133-145); Total Bilirubin 0.88 mg/dL (0.00-1.30); Troponin T High Sensitivity 13 ng/L (<=22)
[2024-09-17 07:06] LABS: Color, Urine Yellow (Yellow); Glucose, Dipstick Normal (Normal); Ketone-Dipstick Negative (Negative); Leukocyte Esterase-Dipstick Negative /ul (Negative); Nitrite-Dipstick Negative (Negative); Occult Blood-Urine Negative /ul (Negative); Protein-Dipstick Negative (Negative); Urine Bilirubin Dipstick Negative (Negative); Urine Clarity Clear (Clear); Urine Urobilinogen Normal (Normal)
[2024-09-17 08:09] VITALS: BP 174/91; PULSE 54; RESP 19; TEMP 36.8; O2SAT 95
== END 2024-09-17 08:14 | disposition home or self-care (01) ==
PROVIDERS: Emergency Provider Surgery; PCP Family Medicine; Visit Provider Surgery
DX: R10.9 Unspecified abdominal pain (principal); I71.40 Abdominal aortic aneurysm, without rupture, unspecified; M54.9 Dorsalgia, unspecified; G89.29 Other chronic pain; Z79.82 Long term (current) use of aspirin; Z87.891 Personal history of nicotine dependence
CPT/HCPCS: 74174; 80053; 81001; 83605; 83690; 84484; 85025; 96361; 96374; 96375; 99283; Q9967; A4216

== ENCOUNTER 2024-10-23 16:18 | Inpatient (IN) | payer MEDICARE, BC, SELFPAY ==
--- NOTE | 2024-10-06 10:11 | PAT.ANE_ITS ---
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 When Was Last Pacemaker Check QUESTION #4 FULL TEXT: You/Your Family Experience fever (hyperthermia) with Anesthesia Last Oral Intake Last Oral intake: Last Oral Intake NPO since Meds taken in AM with sips of water? Meds patient instructed to take am of surgery PONV PONV - colorer hides and skins: PONV - colorer hides and skins Female No 10/06/24 09:07 HX of Motion Sickness No 10/06/24 09:07 HX of N/V After Surgery No 10/06/24 09:07 Non-Smoker No 10/06/24 09:07 Duration of Surgery greater Yes 10/06/24 09:07 than 60 minutes Number of Risk Factors 1 10/06/24 09:07 PONV Score Low Risk 10/06/24 09:07 Height & Weight Height & Weight: Anesthesia: Height & Weight Height 5 ft 4 in 09/17/24 06:12 Respiratory Assessment Respiratory Assessment - colorer hides and skins: Respiratory Tract Infection Hx - colorer hides and skins Hx Respiratory Tract Infection No 10/06/24 09:07 STOP Sleep Apnea STOP Sleep Apnea - colorer hides and skins: STOP Sleep Apnea - colorer hides and skins Hx Hypertension Yes: JUST STARTED BP MED 10/06/24 09:07 AND CONTROLLED Hx Sleep Apnea No 10/06/24 09:07 CPAP BIPAP Do you snore loudly (louder No 10/06/24 09:07 than talking or can be heard Do you often feel tired/ No 10/06/24 09:07 fatigued/ sleepy during daytime? Has anyone observed you stop No 10/06/24 09:07 breathing during sleep? STOP Results Negative 10/06/24 09:07 QUESTION #5 FULL TEXT : Do you snore loudly (louder than talking or can be heard through closed doors)? Tobacco Use History Tobacco Use History - colorer hides and skins: Tobacco Use History - colorer hides and skins Tobacco Use Smoking Status Heavy Smoker (>10/day) 10/06/24 09:07 Hx Tobacco Use Yes 10/06/24 09:07 Years Smoking Packs Smoked per Day Smoking Cessation Date was within the last 15 years Hx Smoking Cessation Date Hx Smoking Cessation Counseling Hematologic Medial History Hematologic Hx - colorer hides and skins: Hematologic Medical Hx - bankruptcy judge Hx of Blood Transfusion No 10/06/24 09:07 Hx of Transfusion in last 3 No 10/06/24 09:07 Months Date of Last Transfusion (if within last 3 months) Ever experience any problems No 10/06/24 09:07 with transfusion(s)? Specify any problems Hx of Preganancy in last 3 N/A 10/06/24 09:07 Months Nurse Filling Out Transfusion DSCHRIBER 10/06/24 09:07 & Questions: Date: 10/06/24 10/06/24 09:07 Time: 09:10 10/06/24 09:07 Patient unable to answer at this time (ie. confused, unrespo /Reproduction History /Reproductive History - colorer hides and skins: /Reproductive Hx- colorer hides and skins Hx Now No 10/06/24 09:07 Gestational Age (in weeks): EDC: Hx Hx Para Hx Section SAB No 10/06/24 09:07 [facility] Medical History (Updated 10/06/24 @ 09:26 by Cynthia Wang) Alcohol use Loss of hearing Wears glasses Wears dentures History of stress test Cardiology follow-up encounter Hyperlipidemia AAA (abdominal aortic aneurysm) without rupture Hypertension Non-Hodgkin lymphoma Skin lesion History of colon polyps Home Medications ?Medication ?Instructions ?Recorded ?Last Taken ?Type atorvastatin 80 mg tablet 80 mg PO DAILY #30 tabs 02/0 06/08 Unknown Rx aspirin 81 mg tablet,delayed 81 mg PO QDAY 09/18/24 History release losartan 50 mg-hydrochlorothiazide 0.5 tab PO QDAY Unknown History 12.5 mg tablet Allergy/AdvReac Type Severity Reaction Status Date / Time No Known Allergies Allergy Verified 10/06/24 09:04 Family History Brother Heart disease Mother , age 31 Cancer Surgical History (Updated 10/06/24 @ 09:26 by Cynthia Wang) Status post excisional biopsy S/P colonoscopy History of colectomy Social History Smoking Status: Heavy Smoker (>10/day) alcohol intake: never substance use type: does not use caffeine: Yes Audit: Pertinent Findings Pertinent Findings EKG Perinent findings: 06/13/2022. Sinus rhythm 60 bpm. Occasional PVCs. Left axis deviation. Right bundle branch block. Consult pertinent findings: Vascular. Dr. Ortiz. 09/18/2024. Abdominal aortic aneurysm. Without rupture. CT images at 5.9 cm AAA. Cardiology for risk stratification. Additional pertinent findings: Cardiology. 09/26/2024. Hypertension. Chronic. 184/90. Beta-vikas added. Patient had negative troponin able to walk 4 METS without restrictions. No further evaluation at this point. Recommendation Anesthesia Recommendation Anesthesia recommendation: OPTIMIZED for anesthesia
[2024-10-10 12:13] LABS: Anion Gap 12 (5-15); BUN 25 mg/dL (4-19); BUN/Creat Ratio 25.9 RATIO (10-20); Calcium,Total 9.2 mg/dL (7.6-11.0); Carbon Dioxide 24.6 mmol/L (21.0-32.0); Chloride 103 mmol/L (98-108); Creatinine, Serum 0.95 mg/dL (0.70-1.20); EST Glomerular Filtration Rate 77 (>60); Glucose 105 mg/dL (70-99); Potassium 3.8 mmol/L (3.3-5.1); Sodium Level 139 mmol/L (133-145)
[2024-10-10 14:53] LABS: Magnesium 1.8 mg/dL (1.5-2.2); Phosphorus 2.7 mg/dL (2.7-4.5)
[2024-10-23] VITALS (22 sets, daily range): BP systolic 112–151; BP diastolic 54–99; PULSE 59–81; RESP 12–23; TEMP 35.9–37.3; O2SAT 91–100; BMI 21.4; BMI 21.2
--- NOTE | 2024-10-23 09:25 | PCM.PRE.AN2 ---
ASA Classification* ASA Classification ASA Classification: 3 Assessment & Plan Anesthesia* Anesthesia Assessment Anesthesia Assessment: Discussed sedation and/or anesthesia options, risks, benefits, and alternatives with patient/parents/legal guardian/POA. Questions invited. The patient/parents/legal guardian/POA seems to understand and agrees to proceed with anesthesia plan. Reviewed the physical assessment, medical history, allergy history and patient home medications list prior to surgery/procedure/anesthetic and documented any changes. Performed airway and anesthesia risk assessments. Anesthesia Type Anesthesia Type: General Anesthesia Focused Assessment* Airway Assessment Mouth opens: >3 cm Mallampati Score: II Labs Anesthesia Preop lab: CBC WBC 7.5 K/mm3 (4.4-11.0) 09/17/24 06:09/17/24 RBC 4.86 M/mm3 (4.6-6.2) 09/17/24 06:09/17/24 Hgb 15.0 g/dL (13.0-16.5) 09/17/24 06:09/17/24 Hct 43.9 % (40-54) 09/17/24 06:09/17/24 Plt Count 229 K/mm3 (150-450) 09/17/24 06:25 09/17/24 CHEMISTRY Potassium 3.8 mmol/L (3.3-5.1) 10/10/24 09:26 10/10/24 Sodium 139 mmol/L (133-145) 10/10/24 09:26 10/10/24 Magnesium 1.8 mg/dL (1.5-2.2) 10/10/24 14:29 10/10/24 Phosphorus 2.7 mg/dL (2.7-4.5) 10/10/24 14:29 10/10/24 BUN 25 mg/dL (4-19) H 10/10/24 09:26 10/10/24 Creatinine 0.95 mg/dL (0.70-1.20) 10/10/24 09:10/10/24 Glucose 105 mg/dL (70-99) H 10/10/24 09:26 10/10/24 COAG PT 13.0 SECONDS (11.7-14.9) 06/15/22 13:30 06/15/22 Pre-Assessment Diagnosis/Proposed Procedure Planned Operative Procedure(s): ENDOVASCULAR REPAIR AAA Anesthesia History 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 When Was Last Pacemaker Check QUESTION #4 FULL TEXT: You/Your Family Experience fever (hyperthermia) with Anesthesia Last Oral Intake Last Oral intake: Last Oral Intake NPO since Meds taken in AM with sips of water? Meds patient instructed to take am of surgery PONV PONV - embroidery patternmaker: PONV - embroidery patternmaker Female No 10/06/24 09:07 HX of Motion Sickness No 10/06/24 09:07 HX of N/V After Surgery No 10/06/24 09:07 Non-Smoker No 10/06/24 09:07 Duration of Surgery greater Yes 10/06/24 09:07 than 60 minutes Number of Risk Factors 1 10/06/24 09:07 PONV Score Low Risk 10/06/24 09:07 Height & Weight Height & Weight: Anesthesia: Height & Weight Height 5 ft 4 in 09/17/24 06:12 Respiratory Assessment Respiratory Assessment - embroidery patternmaker: Respiratory Tract Infection Hx - embroidery patternmaker Hx Respiratory Tract Infection No 10/06/24 09:07 STOP Sleep Apnea STOP Sleep Apnea - embroidery patternmaker: STOP Sleep Apnea - embroidery patternmaker Hx Hypertension Yes: JUST STARTED BP MED 10/06/24 09:07 AND CONTROLLED Hx Sleep Apnea No 10/06/24 09:07 CPAP BIPAP Do you snore loudly (louder No 10/06/24 09:07 than talking or can be heard Do you often feel tired/ No 10/06/24 09:07 fatigued/ sleepy during daytime? Has anyone observed you stop No 10/06/24 09:07 breathing during sleep? STOP Results Negative 10/06/24 09:07 QUESTION #5 FULL TEXT : Do you snore loudly (louder than talking or can be heard through closed doors)? Tobacco Use History Tobacco Use History - embroidery patternmaker: Tobacco Use History - embroidery patternmaker Tobacco Use Smoking Status Heavy Smoker (>10/day) 10/06/24 09:07 Hx Tobacco Use Yes 10/06/24 09:07 Years Smoking Packs Smoked per Day Smoking Cessation Date was within the last 15 years Hx Smoking Cessation Date Hx Smoking Cessation Counseling Hematologic Medial History Hematologic Hx - embroidery patternmaker: Hematologic Medical Hx - mold unloader Hx of Blood Transfusion No 10/06/24 09:07 Hx of Transfusion in last 3 No 10/06/24 09:07 Months Date of Last Transfusion (if within last 3 months) Ever experience any problems No 10/06/24 09:07 with transfusion(s)? Specify any problems Hx of Preganancy in last 3 N/A 10/06/24 09:07 Months Nurse Filling Out Transfusion DSCHRIBER 10/06/24 09:07 & Questions: Date: 10/06/24 10/06/24 09:07 Time: 09:10 10/06/24 09:07 Patient unable to answer at this time (ie. confused, unrespo /Reproduction History /Reproductive History - embroidery patternmaker: /Reproductive Hx- embroidery patternmaker Hx Now No 10/06/24 09:07 Gestational Age (in weeks): EDC: Hx Hx Para Hx Section SAB No 10/06/24 09:07 Active Medications Active Medications: Current Medications Generic Name Dose Route Start Last Admin Trade Name Freq PRN Reason Stop Dose Admin Lactated Ringer's 1,000 mls @ 15 mls/hr 10/23/24 09:15 IV .Q48H HAYDEE PFSH Medical History Alcohol use Loss of hearing Wears glasses Wears dentures History of stress test Cardiology follow-up encounter Hyperlipidemia AAA (abdominal aortic aneurysm) without rupture Hypertension Non-Hodgkin lymphoma Skin lesion History of colon polyps Home Medications ?Medication ?Instructions ?Recorded ?Last Taken ?Type atorvastatin 80 mg tablet 80 mg PO DAILY #30 tabs 06/17/22 Unknown Rx aspirin 81 mg tablet,delayed 81 mg PO QDAY 09/18/24 09/26/24 History release losartan 50 mg-hydrochlorothiazide 0.5 tab PO QDAY 10/06/24 Unknown History 12.5 mg tablet Allergy/AdvReac Type Severity Reaction Status Date / Time No Known Allergies Allergy Verified 10/23/24 09:23 Family History (Reviewed 10/23/24 @ 09: by Dr. Elkin Larson MD) Brother Heart disease Mother , age 31 Cancer Surgical History Status post excisional biopsy S/P colonoscopy History of colectomy Social History Smoking Status: Heavy Smoker (>10/day) alcohol intake: never substance use type: does not use caffeine: Yes Review of Systems (Anesthesia) ROS Narrative System reviewed and no additional complaints, except as documented.
[2024-10-23] MEDS: Lactated Ringers 1,000 ML 15 ML IV (09:47)
[2024-10-23] MEDS: Ipratropium/Albuterol Sulfate 3 ML AMPUL.NEB INHALATION (10:02)
--- NOTE | 2024-10-23 11:16 | PCM.HP.STD ---
HPI - General General Date of Admission: 10/23/24 HPI Narrative HERBERTH ROMAN, is a 89 M who presents with AAA that has been followed with serial imaging for several years. Recent imaging revealed growth to 5.9 cm and anatomy that was amenable to endovascular repair. He presents now for elective [facility]. [facility] Medical History Alcohol use Loss of hearing Wears glasses Wears dentures History of stress test Cardiology follow-up encounter Hyperlipidemia AAA (abdominal aortic aneurysm) without rupture Hypertension Non-Hodgkin lymphoma Skin lesion History of colon polyps Home Medications ?Medication ?Instructions ?Recorded ?Last Taken ?Type atorvastatin 80 mg tablet 80 mg PO DAILY cholesterol #30 tabs 06/17/22 10/22/24 Rx aspirin 81 mg tablet,delayed 81 mg PO QDAY heart health 09/18/24 10/22/24 History release losartan 50 mg-hydrochlorothiazide 0.5 tab PO QDAY blood pressure 10/06/24 10/22/24 History 12.5 mg tablet Allergy/AdvReac Type Severity Reaction Status Date / Time No Known Allergies Allergy Verified 10/23/24 09:23 Family History Brother Heart disease Mother , age 31 Cancer Surgical History Status post excisional biopsy S/P colonoscopy History of colectomy Social History Smoking Status: Heavy Smoker (>10/day) alcohol intake: never substance use type: does not use caffeine: Yes Vital Signs Vital Signs Vital Signs: 10/23/24 09:25 10/23/24 09:25 10/23/24 10:02 Temperature 97 F L Temperature Source Temporal Pulse Rate 71 81 Respiratory Rate 16 18 Respiratory Pattern Normal Blood Pressure 151/81 H Blood Pressure Mean 104 Blood Pressure Source Monitor Blood Pressure Position Sitting Blood Pressure Location Left Arm Pulse Ox 94 Oxygen Delivery Method Room Air 10/23/24 10:02 Temperature Temperature Source Pulse Rate Respiratory Rate Respiratory Pattern Blood Pressure Blood Pressure Mean Blood Pressure Source Blood Pressure Position Blood Pressure Location Pulse Ox 95 Oxygen Delivery Method Room Air Weight Weight: 124 lb 8.979 oz Body Mass Index (BMI) 21.4 Physical Exam Const alert, oriented x3, no apparent distress and healthy appearing General Appearance: cooperative; Negative for combative or lethargic Orientation / Consciousness: awake Exam Limitations: no limitations HEENT Head and Scalp: normocephalic and atraumatic Eyes EOMs intact bilaterally General Eye: normal appearance of both eyes Neck full ROM General: trachea midline Resp normal respiratory effort and no use of accessory muscles Effort and Inspection: Negative for labored, stridor or audible wheezes Cardio regular rate and regular rhythm Back/Spine Cervical Spine: cervical ROM normal Extremity full ROM, normal capillary refill and no clubbing, cyanosis or edema Skin no rashes or lesions noted and no wounds Neuro oriented x3, CN's II-XII intact bilaterally, no focal motor deficits and no sensory deficits noted Psych thought process normal, cooperative, affect normal, speech normal and activity/motor behavior normal Results Lab / Micro Data 10/10/24 09:26 Assessment & Plan Assessment/Plan (1) AAA (abdominal aortic aneurysm) without rupture: QUALIFIERS: Abdominal aorta location: infrarenal aorta Qualified Code(s): I71.43 - Infrarenal abdominal aortic aneurysm, without rupture PLAN: -infrarenal -EVAR
--- NOTE | 2024-10-23 15:54 | PCM.POST.ANE ---
Anesthesia: Postop Eval I Current Vital Signs Temperature: 97 F Pulse Rate: 64 Blood Pressure: 132/80 Respiratory Rate: 15 Pulse Ox: 100 Oxygen Delivery Method: Venturi Mask Oxygen Flow Rate (L/min): 8 Assessment Airway patent: Yes Spontaneous unlabored respirations: Yes Mental status: Awake and Confused nausea: No Vomiting: No Anesthesia Complication: No Fluid Hydration Crystalloid volume administer (ml): 1,200 Total IV fluid infused: 1,200 Progress Note Anesthesia document: Postop Eval 1 completed: Yes
[2024-10-23] MEDS: 0.9% Normal Saline (1000mL) 1,000 ML 250 ML IV (16:25)
--- NOTE | 2024-10-23 16:34 | POSTOPAN2_ITS ---
Anesthesia Postop Eval I Sum Postop Eval Completion status Anesthesia document: Postop Eval 1 completed: Yes Anesthesia Postop Eval I Summary Anesthesia Postop Eval I Summary: Anesthesia Postop Eval I: Assessment Summary Airway patent Yes 10/23/24 15:55 SMASHER HAND.[email or web address] Spontaneous unlabored Yes 10/23/24 15:55 SMASHER HAND.APAT respirations Mental status Awake,Confused 10/23/24 15:55 SMASHER HAND.APAT nausea No 10/23/24 15:55 SMASHER HAND.APAT Vomiting No 10/23/24 15:55 SMASHER HAND.APAT Anesthesia Postop Eval I: Fluid Summary Crystalloid volume administer 1,200 10/23/24 15:55 SMASHER HAND.APAT (ml) Colloids volume administered ( ml) Blood Product volume administered (ml) Total IV fluid infused 1,200 10/23/24 15:55 SMASHER HAND.APAT Anesthesia Postop Eval I: Summary Notes Anesthesia Complication No 10/23/24 15:55 SMASHER HAND.APAT Anesthesia Complication Comment: Post-operative progress note Anesthesia: Postop Eval II Evaluation Mental status: Awake Pain Level: 0 nausea: No Vomiting: No
--- NOTE | 2024-10-23 16:34 | PCM.POSTANE2 ---
Anesthesia Postop Eval I Sum Postop Eval Completion status Anesthesia document: Postop Eval 1 completed: Yes Anesthesia Postop Eval I Summary Anesthesia Postop Eval I Summary: Anesthesia Postop Eval I: Assessment Summary Airway patent Yes 10/23/24 15:55 PRACTICING MD [email or web address].APAT Spontaneous unlabored Yes 10/23/24 15:55 PRACTICING MD ANESTHESIOLOGIST.APAT respirations Mental status Awake,Confused 10/23/24 15:55 PRACTICING MD ANESTHESIOLOGIST.APAT nausea No 10/23/24 15:55 PRACTICING MD ANESTHESIOLOGIST.APAT Vomiting No 10/23/24 15:55 PRACTICING MD [email or web address].APAT Anesthesia Postop Eval I: Fluid Summary Crystalloid volume administer 1,200 10/23/24 15:55 PRACTICING MD ANESTHESIOLOGIST.APAT (ml) Colloids volume administered ( ml) Blood Product volume administered (ml) Total IV fluid infused 1,200 10/23/24 15:55 PRACTICING MD [email or web address].APAT Anesthesia Postop Eval I: Summary Notes Anesthesia Complication No 10/23/24 15:55 PRACTICING MD [email or web address].APAT Anesthesia Complication Comment: Post-operative progress note Anesthesia: Postop Eval II Evaluation Mental status: Awake Pain Level: 0 nausea: No Vomiting: No
--- NOTE | 2024-10-23 16:46 | PCM.OPRPT ---
Operative Report (Standard) Operative Information Date of Procedure: 10/23/24 Pre-Operative Diagnosis: Infrarenal abdominal aortic aneurysm Post-Operative Diagnosis: Same Surgery/Procedure Performed: Endovascular repair of abdominal aortic aneurysm with percutaneous access Placement Palmaz balloon expandable stent reinforcing the proximal landing zone line painting machine operator: Yes Lawn And Garden Technician: Ralph Monteiro Tasks completed by pharmacy innovation assistant: Opening, Closing, Opening & closing and Implanting device Type of Anesthesia: General RN Documented Start/Stop Times: Operation Date: 10/23/24 11:00 Case Time Into Pre-Op 10/23/24 09:07 Out of Pre-Op 10/23/24 11:30 Into Recovery 10/23/24 15:45 Procedure Start Time: 12:50 Procedure Stop Time: 15:00 Select all DRAINS/GRAFTS/IMPLANTS that apply: Prosthetic device Prosthetic device details: Endologix alto 29 mm main body Ovation iliac limb 16 x 120, right common iliac Ovation iliac limb 14 x 140, left common iliac Palmaz [id number] Estimated Blood Loss: 20 Specimen collected: No Description of surgery: HPI: Patient is an 89-year-old male with an abdominal aortic aneurysm which has been followed with serial imaging. This has grown in size it is now 5.9 cm and the patient wishes to proceed with repair. He is anatomy that is amenable to stent graft so he presents now for elective endovascular aneurysm repair. Description of procedure: Upon obtaining informed consent and verification correct patient procedure site the patient was taken to the [facility] where he was placed under general anesthesia. He was then positioned prepped and draped in usual sterile fashion a time was performed. Under ultrasound guidance the right common femoral artery was accessed with a micropuncture needle wire which was then exchanged for a micropuncture sheath. Through this a hand-injection iliofemoral angiogram was performed revealing satisfactory positioning with no extravasation or dissection. Through the micropuncture sheath a [employer] wire was advanced and the micropuncture sheath exchanged for short 6 Cam[place]onian sheath dilate the tract. This sheath was then withdrawn and a pair of Pro-glide suture mediated closure devices were deployed in preclose technique. After suture device deployment an 8 Cam[place]onian sheath was advanced over the wire and positioned in the distal common iliac artery. Next under ultrasound guidance the left common femoral artery was accessed with a micropuncture needle and wire. This then exchanged for a micropuncture sheath through which a hand-injection iliofemoral angiogram was performed revealing satisfactory positioning no extravasation or dissection. Through the micropuncture sheath a Bentson wire is advanced and the micropuncture sheath exchanged for short 6 Cam[place]onian sheath. There is significant amount of tortuosity in the iliac artery and the Bentson wire would not navigate into the aorta so a KMP catheter was advanced through the 6 Cameroonian sheath and the Bentson wire exchanged for an angled Glidewire which was advanced into the abdominal aorta. The catheter was then advanced and the wire withdrawn and a Bentson wire advanced after which the catheter and short 6 Cam[place]onian sheath were withdrawn and a pair of Pro-glide suture mediated closure devices were deployed in preclose technique. Once the devices were deployed an 8 Cam[place]onian sheath was advanced into the ipsilateral proximal external iliac artery. The patient was then heparinized allowed to circulate for 3 minutes with subsequent heparin dosing based on ACT results. Via the right femoral access sheath the Bentson wire and a KMP catheter were advanced into the mid descending thoracic aorta and a Bentson wire exchanged for a Lunderquist wire. The left femoral access Bentson wire was advanced into the visceral segment abdominal aorta and a marker pigtail catheter positioned at the L2 vertebral body. The right femoral 8 Cam[place]onian sheath was then withdrawn and the Endologix [place] 29 mm main body was advanced into position just above the L2 vertebral body. Oblique view subtraction aortogram was then performed under magnification to confirm the origins of the bilateral renal arteries with the right being the lowest. The main body device top crown was then deployed in satisfactory position with the superior edge of the fabric at the lower edge of the right renal artery. The polymer injection system was then attached to the deployment system and the predetermined polymer volume infused with the autoinjector. While this was infusing the left iliac limb was cannulated via the left femoral access sheath utilizing an angled Glidewire and a KMP catheter. The wire and catheter were then advanced into the aorta superior to the stent graft and the Glidewire exchanged for a second Lunderquist wire. The catheter was then withdrawn and the marker pigtail catheter advanced over the wire and positioned with overlap into the contralateral limb. Hand-injection subtraction left iliac angiogram was performed and the origin of the left internal iliac artery identified. Once the allotted time had been reached the aortic balloon within the delivery system was inflated to the profile at the proximal seal zone and held pressurized for approximately 30 seconds and then deflated. The left iliac limb 14 x 140 was then selected. The left femoral 8 Cameroonian sheath was withdrawn and the limb advanced in the position with satisfactory overlap into the main body and deployed. The delivery system was then withdrawn and exchanged for a short 10 Cameroonian sheath. Once the polymer infusion was completed the main body device delivery system was detached and withdrawn and a 14 Cam[place]onian sheath advanced over the wire and positioned in the mid external iliac artery. The marker pigtail catheter then advanced via the right femoral access sheath and digital subtraction hand-injection right iliac angiogram performed to obtain length measurements for the ipsilateral limb. The right iliac limb 16 x 120 was then selected and advanced over the Lunderquist wire through the ipsilateral sheath and positioned with satisfactory overlap in the main body. This was then deployed and the delivery system withdrawn. An Barr Q50 X compliant balloon was then advanced and inflated to profile along each of the iliac limb overlap sites to the main body as well as within the iliac landing zones. Pigtail catheter was then advanced into the abdominal aorta and digital subtraction completion angiogram was performed which revealed opacification of the bilateral renal arteries with no evidence of ostial compromise. There was an early proximal endoleak that appeared to be a type Ia in nature. Multiple oblique views were obtained and ultimately were able to confirm that there was contrast passage on the anterior aspect of the superior seal zone filling the proximal aneurysm sac. There continued to be a palpable pulse within the aortic aneurysm when palpated through the patient's abdomen and this appeared to be a fairly brisk endoleak. The right femoral 14 Cameroonian sheath was exchanged for 16 Cameroonian sheath and a Palmaz [id number] was brought onto the field. This was then mounted to the Q50 X balloon and advanced via the right femoral access sheath and positioned centered on the sealing rings. The balloon was then inflated to profile with the stent remaining centered over the seal zone. The balloon was then deflated and advanced to slightly more cephalad and again inflated to profile. The balloon was then withdrawn and repeat oblique imaging was performed which revealed resolution of the type Ia endoleak with no additional endoleak's visualized. It was felt that no further intervention was warranted so the right femoral wire and sheath were withdrawn as the Pro-glide sutures were secured with satisfactory hemostasis observed. Surgicel topical hemostatic was then placed within the access tract and manual pressure held for approximately 2 minutes with complete hemostasis observed. Next the left femoral access sheath and wire were withdrawn and the Pro-glide suture secured again with satisfactory stasis observed. Surgicel topical hemostatic was applied to the tract and Manta pressure after 2 minutes with complete hemostasis observed. The incision was then closed with 4 Monocryl and Dermabond for the skin followed by dry sterile dressings. The patient was then awake from anesthesia taken the recovery room with anticipate admission to the intensive care unit for hemodynamic and neurologic monitoring. Surgical Findings: Initial completion imaging revealed type Ia endoleak. This resolved after Palmaz stent placement with no further endoleaks identified. Palpable posterior tibial and popliteal pulses bilateral Complications Complications: No
[2024-10-23] MEDS: Cefazolin 1 GM/50 ML BAG IV (21:13)
[2024-10-23] MEDS: Acetaminophen 500 MG Tablet 1000 MG PO (21:13)
[2024-10-24] VITALS (12 sets, daily range): BP systolic 86–130; BP diastolic 50–63; PULSE 55–63; RESP 14–21; TEMP 35.8–36.2; O2SAT 90–97; BMI 21.9
[2024-10-24] MEDS: 0.9% Saline Lock 10 ML Syringe IV (03:19)
[2024-10-24] MEDS: Cefazolin 1 GM/50 ML BAG IV (03:24)
[2024-10-24 03:32] LABS: Absolute Lymphocyte Count 1.16 X10^3/uL (0.83-4.51); Absolute Neutrophil Count 9.1 X10^3/uL (2.0-7.7); Basophil# 0.02 X10^3/uL; Basophil% 0.2 % (0-1); Hematocrit 34.3 % (40-54); Hemoglobin 11.8 g/dL (13.0-16.5); Lymphocyte # 1.16 X10^3/ul (0.83-4.51); Lymphocyte % 10.4 % (19-41); Mean Corp Hgb Conc 34.4 g/dL (32-36); Mean Corpuscular Hgb 31.4 pg (27.0-32.0); Mean Corpuscular Volume 91.2 fL (80-94); Mean Platelet Vol. 10.6 fl (6.2-12.0); Monocyte# 0.83 X10^3/uL; Monocyte% 7.5 % (0-10); NRBC Flagged by Analyzer 0 % (0-5); Neutrophil # 9.05 X10^3/uL (2.7-7.7); Neutrophil % 81.4 % (47-70); Platelet Count 190 K/mm3 (150-450); RBC Distribution Width CV 12.8 % (11.6-14.6); RBC Distribution Width SD 41.9 fl (35.1-43.9); Red Blood Count 3.76 M/mm3 (4.6-6.2); White Blood Count 11.1 K/mm3 (4.4-11.0)
[2024-10-24] MEDS: Acetaminophen 500 MG Tablet 1000 MG PO (04:58)
[2024-10-24 05:42] LABS: Anion Gap 10 (5-15); BUN 18 mg/dL (4-19); BUN/Creat Ratio 19.2 RATIO (10-20); Calcium,Total 7.9 mg/dL (7.6-11.0); Carbon Dioxide 22.3 mmol/L (21.0-32.0); Chloride 104 mmol/L (98-108); Creatinine, Serum 0.93 mg/dL (0.70-1.20); EST Glomerular Filtration Rate 79 (>60); Estimated Creatinine Clearance 45.35 ml/min (50-250); Glucose 129 mg/dL (70-99); Potassium 4.7 mmol/L (3.3-5.1); Sodium Level 137 mmol/L (133-145)
--- NOTE | 2024-10-24 08:14 | DS.PCM_ITS ---
Providers Date of Admission: 10/23/24 Primary Care Physician: Dr. Stanley Fontenot MD Reason For Visit: Endovascular Repair, Abdominal Aortic Aneurism, Gr Diagnosis Discharge Diagnosis (1) AAA (abdominal aortic aneurysm) without rupture: Status: Chronic Code(s): I71.40 - Abdominal aortic aneurysm, without rupture, unspecified Qualifiers: Abdominal aorta location: infrarenal aorta Qualified Code(s): I71.43 - Infrarenal abdominal aortic aneurysm, without rupture Plan: Patient seen this morning and feeling well. He reports no significant pain. He feels to his baseline and is eager to discharge to home. He has been tolerating a normal diet. His blood pressures have been stable. Alvarez catheter still in place this morning. Will remove and once he voids will be appropriate for discharge. Medications at Discharge Home Medications atorvastatin 80 mg tablet 80 mg PO DAILY cholesterol #30 tabs 06/17/22 aspirin 81 mg tablet,delayed release 81 mg PO QDAY heart health 09/18/24 losartan 50 mg-hydrochlorothiazide 12.5 mg tablet 0.5 tab PO QDAY blood pressure 10/06/24 acetaminophen 500 mg tablet 1,000 mg (2 x 500 mg) PO Q8 7 days #0 tabs 10/24/24 Hospital Course Operations - (EVAR) Summary of Care Provided Hospital Course: Mr. Vick Reinoso is an 89 y/o male who underwent EVAR 10/23/24; initial imaging had revealed type 1a endoleak which resolved with Palmaz stent placement with no further endoleaks identified.He tolerated the procedure well. Postoperatively, he was routinely admitted to the ICU for hemodynamic monitoring. He has remained hemodynamically stable throughout. He did receive more contrast than usual during the procedure; repeat Cr and GFR this morning were stable. He reports minimal pain at the access site. He denies abdominal, chest, back, or flank pain. He has tolerated a normal diet. He was able to void without difficulty following alvarez catheter removal. He is medically stable for discharge home today with planned outpatient follow-up. We will recheck his GFR/Cr in 1 week and he is encouraged to ensure adequate hydration for the next week or so. Weight / BMI Weight Weight: 128 lb 11.999 oz Body Mass Index (BMI) 21.9 ABG / Lab / Microbiology Data 10/24/24 03:20 10/24/24 04:50 Laboratory: Laboratory Results - last 24 hr 10/24/24 03:20: WBC 11.1 H, RBC 3.76 L, Hgb 11.8 L, Hct 34.3 L, MCV 91.2, MCH 31.4, MCHC 34.4, RDW Std Deviation 41.9, RDW Coeff of Carlos 12.8, Plt Count 190, MPV 10.6, Immature Gran % (Auto) 0.500, Neut % (Auto) 81.4 H, Lymph % (Auto) 10.4 L, [place] % (Auto) 7.5, Eos % (Auto) 0.0, Baso % (Auto) 0.2, Absolute Neuts (auto) 9.1 H, Absolute Lymphs (auto) 1.16, Nucleated RBC % 0, Sodium Cancelled, Potassium Cancelled, Chloride Cancelled, Carbon Dioxide Cancelled, Anion Gap Cancelled, BUN Cancelled, Creatinine Cancelled, Estim Creat Clear Calc Cancelled, Est GFR (MDRD) Non-Af Cancelled, BUN/Creatinine Ratio Cancelled, Glucose Cancelled, Calcium Cancelled 10/24/24 04:50: Sodium 137, Potassium 4.7, Chloride 104, Carbon Dioxide 22.3, Anion Gap 10, BUN 18, Creatinine 0.93, Estim Creat Clear Calc 45.35 L, Est GFR (MDRD) Non-Af 79, BUN/Creatinine Ratio 19.2, Glucose 129 H, Calcium 7.9 D/C Instructions Discharge Diet: No restrictions May shower in (days): 1 Weight Bearing Status: Weight bearing as tolerated Lifting Restricted to (Lbs): 20 Lifting Restrictions: Do not lift greater than 20 pounds for 3 weeks Call your doctor if your incision/area has: Sudden Increased Bleeding, Increased Pain/ Swelling and Foul Smelling Discharge Call your doctor if you observe: Fever of 101 or Higher and Uncontrolled pain Remove Dressing in: 1 day DC O2, CPAP, BIPAP Needs Home O2 Discharge instructions: No Additional Instructions: You have a dry dressing over the groin access site. You may remove this tomorrow. Underneath, the incision is closed with skin glue which will peel/flake off on its own over the next few weeks, please do not pick at it. You may shower tomorrow. Soap and water can rinse over the incision site. Pat gently to dry. Do not submerge the incision site such as to take a bath, swim, etc for 3 weeks. Do not lift more than 20 pounds for 3 weeks. Otherwise, please proceed with activity as tolerated. Please Follow Up With: Anna Marshall PA When: 11/07/24 Meaningful Use Info Meaningful Use Meaningful Use Diagnoses (Choose all that apply): None applicable Ischemic Stroke Statin Dosing Therapy Reference: STATIN DOSE THERAPY REFERENCE: * Patients > 75 years receive moderate or high dose statin therapy. * Patients 75 years or YOUNGER should receive HIGH intensity statin dose unless contraindicated. You will be required to document reason for non-treatment if statin daily dose does not meet guidelines. HIGH DOSE STATIN THERAPY DAILY Atorvastatin > than or = to 40 mg Rosuvastatin > than or = to 20 mg Amlodipine + Atorvastatin > than or = to 2.5/40 mg Ezetimibe + Simvastatin 10/80 mg Simvastatin 80mg Discharge Plan Admission Admit Date/Time: 10/23/24 16:18 Attending Provider: Eriberto Ortiz Primary Care Provider: Stanley Fontenot Consulting Providers: Elkin Larson; Brayan Breaux Discharge Orders/Prescriptions Prescriptions: New acetaminophen 500 mg Tablet 1,000 mg PO Q8 7 Days Qty: 0 0RF Continued atorvastatin 80 mg tablet 80 mg PO DAILY Qty: 30 5RF aspirin 81 mg tablet,delayed release (DR/EC) 81 mg PO QDAY losartan-hydrochlorothiazide 50-12.5 mg tablet 0.5 tab PO QDAY Referrals / Follow Up: Stanley Fontenot MD [Primary Care Provider] - Disposition Disposition (needs filled in before D/C Order can be placed): Home, Self Care
[2024-10-24] MEDS: Aspirin E.C. 81 MG Tablet PO (08:23)
[2024-10-24] MEDS: Enoxaparin 40 MG/0.4 ML Syringe SC (08:24)
[2024-10-24] MEDS: Atorvastatin Calcium 80 MG Tablet PO (08:24)
--- NOTE | 2024-10-24 10:56 | CASEMGMT ---
SARAH DONALDSON Assessment Face to Face with patient for initial transition planning/care coordination assessment. SARAH DONALDSON introduced self and role at [facility], pt voices understanding. Pt is A&Ox4 and is resting comfortably in the chair and is calm. Care providers, pharmacy, and demographics verified. Admitting dx: Endovascular Repair, AAA LACE Strata: 1 PCP: Stanley Fontenot Specialists: Po (Oncology), Diana PRESSLEY (Vascular) Preferred Pharmacy: [facility] Insurance: [employer] A/B, [employer] Prescription Benefit: Yes LNOK: Cathryn (W), Boubacar (Daughter) Living Arrangements: Pt lives with his and daughter in a 2 story home with 5 steps to enter ADLs/IADLs: Pt reports that he is entirely independent and denies therapy needs. 6-Click score is 23. Transportation: Self, daughter, DME: Pt reports that he has access to a FWW, Cane, grab bars, and BP Machine. HHC/SNF: Denies hx or needs Pt?s goal: Home Plan: Home, anticipate no additional needs. Pt is currently 95% on RA. Pt denies the need for further therapy or additional needs and states that he feels safe returning home with his family today. Pt denies further questions or concerns at this time. Fely Holliday RN, CM
--- OUTSIDE RECORDS SUMMARY | 2024-10-24 21:00 | XMS RPT_ITS | CCD ---
Author Organization [facility] CliniSyva Care Team Providers Care High Tension Tester Name Role Phone Stanley Kaiser MD Primary Care Provider Stanley Kaiser MD Primary Care Provider Boone ELECTRIFIER OPERATOR.WELDING OPERATORChelsy Unavailable Froylan ELECTRIFIER OPERATOR.WELDING OPERATOR, Shruti Ross Unavailable ST[facility]LEY [facility] Primary Care Unavailable PO, TOMAS A Referring Unavailable PO, TOMAS A Referring Unavailable STANLEY [facility] Primary Care Unavailable ST[facility] Primary Care Unavailable PROVIDER, UNKNOWN Attending Unavailable PROVIDER, UNKNOWN Admitting Unavailable Dr. Stanley Kaiser MD Primary Care Provider [phone] Anna Stevenson Attending Provider [phone] Anna Stevenson Referring Provider Dr. Juan M Mendez DO Emergency Provider Dr. Stanley Kaiser MD Referring Provider Dr. Eriberto Ortiz MD Attending Provider STANLEY [facility] Primary Care Unavailable STANLEY [facility] Attending Unavailable STANLEY [facility] Primary Care Unavailable ST[facility]LEY [facility] Primary Care Unavailable MASCEstella, TOMAS A Attending Unavailable STANLEY [facility] Attending Unavailable ST[facility]LEY [facility] Primary Care Unavailable MASCI, TOMAS A Referring Unavailable STANLEY [facility] Primary Care Unavailable YARELISI, TOMAS A Attending Unavailable STANLEY [facility] Primary Care Unavailable STANLEY [facility] Primary Care Unavailable STANLEY [facility] Referring Unavailable STANLEY [facility] Primary Care Unavailable MASCI, TOMAS A Attending Unavailable STANLEY [facility] Primary Care Unavailable MASCI, TOMAS A Attending Unavailable STANLEY [facility] Primary Care Unavailable STANLEY [facility] Primary Care Unavailable Dr. Juan M Mendez DO Attending Provider Saeid TEE, Dr. Schmidt Attending Provider Diana TEE, Dr. Wei Admit Provider [phone] Diana TEE, Dr. Wei Referring Provider Diana TEE, Dr. Wei Other Provider [phone] Neo TEE, Dr. Granger Other Provider [phone] Saeid TEE, Dr. Schmidt Other Provider Bowdon, Stanley Referring Unavailable Bowdon, [facility] Primary Care Unavailable Diana, Eriberto Attending Unavailable Po, Stanley Referring Unavailable Breaux, Brayan Attending Unavailable Bowdon, [facility] Primary Care Unavailable Bowdon, [facility] Primary Care Unavailable Weeman, Elkin Consulting Unavailable Lowell, Eriberto Attending Unavailable Lowell, Eriberto Referring Unavailable Lowell, Eriberto Admitting Unavailable Breaux, Brayan Consulting Unavailable Diana, Eriberto Consulting Unavailable Bowdon, [facility] Primary Care Unavailable Weeman, Elkin Consulting Unavailable Marshall, Anna Attending Unavailable Diana, Eriberto Referring Unavailable Lowell, Eriberto Admitting Unavailable Breaux, Brayan Consulting Unavailable Diana, Eriberto Consulting Unavailable Bowdon, [facility] Primary Care Unavailable Marshall, Anna Attending Unavailable Marshall, Anna Referring Unavailable Juan M Mendez Attending Unavailabl e Bowdon, [facility] Primary Care Unavailable Weeman, Elkin Consulting Unavailable Bowdon, [facility] Primary Care Unavailable Diana, Eriberto Attending Unavailable Lowell, Eriberto Referring Unavailable Lowell, Eriberto Admitting Unavailable Breaux, Brayan Consulting Unavailable Medications Current Medications Medication Drug Class(es) Dates Sig (Normalized) Sig (Original) acetaminophen 500 mg oral tablet (1 source) Start: 10-24-2024 take 2 tablets by mouth every eight hours Acetaminophen 500 mg Tablet Active 1000 mg PO EVERY 8 HOURS 0 7 October 24, 2024 12:00am aspirin 81 mg delayed release oral tablet (20 sources) Platelet Aggregation Inhibitor, Nonsteroidal Anti-inflammatory Drug Start: 09-18-2024 take 1 tablet by mouth once daily Aspirin 81 mg tablet,delayed release (DR/EC) Active 81 mg PO daily September 18, 2024 12:00am take 1 tablet by mouth once sumeet y aspirin 81 mg cap Take 1 tablet by mouth once daily. Active Comment on above: Take by mouth. Take 1 tablet by navid once daily. atorvastatin 80 mg oral tablet (20 sources) HMG-CoA Reductase Inhibitor Start: 023 End: 026 take 1 tablet by mouth once daily Atorvastatin 80 mg tablet Active 80 mg PO DAILY June 17, 2022 1:00am Comment on above: Take 80 mg by mouth once daily. Take 1 tablet by navid once daily. hydroCHLOROthiazide 12.5 mg / losartan potassium 50 mg oral tablet (3 sources) Thiazide Diuretic, Angiotensin 2 Receptor Maria Del Rosario Start: 025 End: 025 Losartan-Hydrochlor othiazide 50-12.5 mg tablet Active 0.5 {tbl} PO daily October 06, 2024 12:00am [place] (Nk) (2 sources) Start: 018 [place] (Nk) Active June 24, 2017 12:00am Completed/Discontinued Medications Medication Drug Class(es) Dates Sig (Normalized) Sig (Original) acetaminophen 325 mg / HYDROcodone bitartrate 5 mg oral tablet (7 sources) Opioid Agonist Start: 04-12-2013 End: 06-17-2017 Hydrocodone-Acetami nophen 1 TABLET tablet Discontinued 1 - 2 {tbl} PO EVERY 6 HOURS NEEDED as needed for Pain April 12, 2013 1:00am June 17, 2017 8:31am Start: 04-12-2013 End: 06-17-2017 take 1 tablet by mouth every six hours as needed Hydrocodone-Acetaminophen Discontinued 1 - 2 TABLET PO EVERY 6 HOURS NEEDED April 12, 2013 12:00am June 17, 2017 7:31am benzonatate 100 mg oral capsule (7 sources) Non-narcotic Antitussive Start: 11-20-2022 End: 12-25-2022 take 1 capsule by mouth three times daily as needed for cough benzonatate (TESSALON PERLES) 100 mg capsule Indications: Acute cough , Bronchitis Take 1 capsule by mouth three times daily as needed for cough. 30 capsule 11/20/2022 12/25/2022 Discontinued Comment on above: Take 1 capsule by mo [facility] three times daily as needed for cough. betamethasone 0.5 mg/ml / clotrimazole 10 mg/ml topical cream (1 source) Azole Antifungal, Corticosteroid Start: 03-02-2016 End: 06-13-2022 clotrimazole-betame thasone (LOTRISONE) cream Indications: Balanitis Apply 1 application to affected area twice daily. 46 g 0 03/02/2016 06/13/2022 Discontinued Comment on above: Apply 1 application to affected area twice daily. dimenhyDRINATE (1 source) End: 06-13-2022 DIMENHYDRINATE (DRAMAMINE ORAL) Take by mouth. 0 06/13/2022 Discontinued Comment on above: Take by mouth. doxycycline monohydrate 100 mg oral tablet (5 sources) Tetracycline-class Drug Start: 11-20-2022 End: 11-30-2022 take 1 tablet by mouth twice daily doxycycline monohydrate 100 mg tablet Indications: Acute cough , Bronchitis Take 1 tablet by mouth twice daily for 10 days. 20 tablet 11/20/2022 11/30/2022 Comment on above: Take 1 tablet by navid twice daily for 10 days. Problems Active Problems Problem Classification Problem Date Documented Da te Episodic/Chronic Abdominal pain (20 sources) Abdominal discomfort; Translations: [Left upper quadrant pain] Onset: 06-26-2022 Resolved: 07-07-2024 Episodic Aortic; peripheral; and visceral artery aneurysms (20 sources) Abdominal aortic aneurysm; Translations: [Abdominal aortic aneurysm (AAA)] Onset: 07-02-2022 06-13-2022 Chronic Comment on above: CTA images reviewed, 5.9 cm AAA, neck appears adequate for evar though angulated Chronic obstructive pulmonary disease and bronchiectasis (2 sources) Bronchitis; Translations: [Bronchitis, not specified as acute or chronic] Episodic Diseases of white blood cells (1 source) Leukocytosis; Translations: [Elevated white blood cell count, unspecified] 11-23-2022 Chronic Disorders of lipid metabolism (11 sources) Mixed hyperlipidemia; Translations: [Mixed hyperlipidemia] Onset: 07-07-2024 12-25-2022 Chronic Comment on above: ON MED Essential hypertension (20 sources) Hypertensive disorder; Translations: [Essential (primary) hypertension] Onset: 11-20-2022 06-15-2022 Chronic Comment on above: STARTED ON MED BETTER CONTROL AT THIS TIME PER PATIENT Genitourinary symptoms and ill-defined conditions (1 source) Proteinuria; Translations: [Proteinuria, unspecified] Episodic Non-Hodgkin`s lymphoma (20 sources) Malignant lymphoma; Translations: [Non-Hodgkin lymphoma, unspecified, unspecified site] Onset: 10-24-2012 10-24-2012 Chronic Comment on above: 1992,2000 RADIATION AND CHEMO HX. RECURRING IN TAILBONE AND BEHIND EAR. NO TREATMENT AT THIS TIME. FOLLOWS WITH DR FONTENOT Other and unspecified benign neoplasm (20 sources) History of polyp of colon; Translations: [Personal history of colonic polyps] Onset: 11-20-2022 Resolved: 12-25-2022 06-13-2022 Episodic Comment on above: 03/2013 Other female genital disorders (1 source) Lump of cervix; Translations: [Other specified noninflammatory disorders of cervix uteri] 06-18-2023 Episodic Other gastrointestinal disorders (20 sources) Altered bowel function; Translations: [Other specified symptoms and signs involving the digestive system and abdomen] Onset: 11-20-2022 Resolved: 12-25-2022 06-24-2017 Episodic Other liver diseases (1 source) Increased bilirubin level; Translations: [Unspecified jaundice] 09-17-2024 Episodic Other liver diseases (1 source) Unspecified jaundice; Translations: [Elevated bilirubin] Onset: 09-18-2024 Episodic Other lower respiratory disease (2 sources) Cough; Translations: [Acute cough] Episodic Other nutritional; endocrine; and metabolic disorders (3 sources) Weight loss; Translations: [Abnormal weight loss] Episodic Other skin disorders (20 sources) Skin lesion; Translations: [Disorder of the skin and subcutaneous tissue, unspecified] Onset: 11-20-2022 Resolved: 12-25-2022 07-05-2017 Episodic Comment on above: LYMPH NODE 1992 Other skin disorders (2 sources) Mass of neck; Translations: [Localized swelling, mass and lump, neck] 06-18-2023 Episodic Pneumonia (except that caused by tuberculosis or sexually transmitted disease) (3 sources) Bacterial pneumonia; Translations: [Unspecified bacterial pneumonia] 11-27-2022 Episodic Residual codes; unclassified (20 sources) History of colectomy; Translations: [Acquired absence of other specified parts of digestive tract] Onset: 11-20-2022 06-13-2022 Episodic Comment on above: 03/2013 Residual codes; unclassified (20 sources) Tobacco user; Translations: [Tobacco use] Onset: 11-20-2022 06-13-2022 Episodic Residual codes; unclassified (7 sources) History of colonoscopy; Translations: [Other specified postprocedural states] 07-12-2017 Episodic Residual codes; unclassified (3 sources) Tobacco use; Translations: [Tobacco user] Onset: 11-20-2022 Episodic Unclassified (1 source) Radiology NM Onset: 08-24-2023 Unclassified (3 sources) I71.40 - Abdominal aortic aneurysm, without rupture, unspecified Unclassified (1 source) Abdominal aortic aneurysm (AAA) without rupture, unspecified part (HCC); Translations: [Abdominal aortic aneurysm (AAA) without rupture, unspecified part (HCC)] Onset: 11-20-2022 Unclassified (2 sources) Infrarenal abdominal aortic aneurysm, without rupture; Translations: [Infrarenal abdominal aortic aneurysm, without rupture] Onset: 10-24-2024 Unclassified (1 source) Abdominal aortic aneurysm, without rupture, unspecified; Translations: [Abdominal aortic aneurysm, without rupture, unspecified] Onset: 09-20-2024 Past or Other Problems Problem Classification Problem Date Documented Da te Episodic/Chronic Diabetes mellitus without complication (20 sources) Prediabetes; Translations: [Prediabetes] Onset: 06-18-2023 06-18-2023 Episodic Non-Hodgkin`s lymphoma (20 sources) History of malignant lymphoma; Translations: [Personal history of non-Hodgkin lymphomas] Onset: 06-30-2023 Episodic Other and unspecified benign neoplasm (20 sources) Polyp of colon; Translations: [Polyp of colon] Onset: 03-02-2013 03-02-2013 Episodic Other and unspecified benign neoplasm (14 sources) Benign neoplasm of colon; Translations: [Benign neoplasm of colon, unspecified] Onset: 04-27-2014 Resolved: 04-27-2014 Episodic Screening and history of mental health and substance abuse codes (4 sources) Patient encounter status; Translations: [Encounter for screening for depression] Onset: 12-29-2023 12-29-2023 Episodic Results Test Name Value Interpretation Reference Range Facility Absolute lymphocyte countOrd ered By: Eriberto Ortiz on 10-24-2024 Lymphocytes Auto (Unsp spec) [#/Vol] 1.16 10*3/uL 0.83-4.51 [facility] Absolute neutrophil countOrd ered By: Eriberto Ortiz on 10-24-2024 Neutrophils (Bld) [#/Vol] 9.1 10*3/uL High 2.0-7.7 [facility] Anion gap in Serum or Plasma Ordered By: Eriberto Ortiz on 10-24-2024 Anion gap [Moles/Vol] 10 mmol/L 09-28 [facility] Automated lymphocyte count a s percentage of total leukocytesOrdered By: Eriberto Ortiz on 10-24-2024 Lymphocytes/100 WBC Auto (Unsp spec) 10.4 % Low [facility] BUN/creatinine ratioOrdered By: Eriberto Ortzi on 10-24-2024 Urea nitrogen/Creatinine [Mass ratio] 19.2 mg/mg 03-05 [facility] Basic Metabolic Profile (BMP )on 10-24-2024 BUN/CRE 19.2 RATIO Normal 03-05 [facility] Comment on above: Order Comment: REDRA W. PREVIOUS SPECIMEN REJECTED DUE TO HEMOLYSIS. 10/24/24406 Seymour Castañeda White. Performed By: #### L 500.2500 #### [facility] [address] [place], [address] Calcium [Mass/Vol] 7.9 mg/dL Normal 7.6-11.0 [facility] Comment on above: Order Comment: REDRA W. PREVIOUS SPECIMEN REJECTED DUE TO HEMOLYSIS. 10/24/24406 Seymour L White. Performed By: #### L 500.2500 #### [facility] [address] [place], [address] Chloride [Moles/Vol] 104 mmol/L Normal 98-108 [facility] Comment on above: Order Comment: REDRA W. PREVIOUS SPECIMEN REJECTED DUE TO HEMOLYSIS. 10/24/24406 Seymour L White. Performed By: #### L 500.2500 #### [facility] [address] [place], [address] CO2 [Moles/Vol] 22.3 mmol/L Normal 21.0-32.0 [facility] Comment on above: Order Comment: REDRA W. PREVIOUS SPECIMEN REJECTED DUE TO HEMOLYSIS. 10/24/24406 Seymour L White. Performed By: #### L 500.2500 #### [facility] [address] [place], [address] Creatinine [Mass/Vol] 0.93 mg/dL Normal 0.70-1.20 [facility] Comment on above: Order Comment: REDRA W. PREVIOUS SPECIMEN REJECTED DUE TO HEMOLYSIS. 10/24/24406 Seymour L White. Performed By: #### L 500.2500 #### [facility] [address] [place], [address] ECRCL 45.35 ml/min Low 50-250 [facility] Comment on above: Order Comment: REDRA W. PREVIOUS SPECIMEN REJECTED DUE TO HEMOLYSIS. 10/24/24406 Seymour L White. Performed By: #### L 500.2500 #### [facility] [address] [place], [address] GAP 10 Normal 5-15 [facility] Comment on above: Order Comment: REDRA W. PREVIOUS SPECIMEN REJECTED DUE TO HEMOLYSIS. 10/24/24406 Seymour L White. Performed By: #### L 500.2500 #### [facility] [address] [place], [address] GFR/1.73 sq M.predicted among non-blacks MDRD (S/P/Bld) [Vol rate/Area] 79 mL/min/{1.73_m2} Normal >60 [facility] Comment on above: Order Comment: REDRA W. PREVIOUS SPECIMEN REJECTED DUE TO HEMOLYSIS. 10/24/24406 Seymour L White. Result Comment: mL/m in/1.73m2 CKD-EPI Creatinine Equation (2020) Performed By: #### L 500.2500 #### [facility] [address] [place], [address] Glucose [Mass/Vol] 129 mg/dL High 70-99 [facility] Comment on above: Order Comment: REDRA W. PREVIOUS SPECIMEN REJECTED DUE TO HEMOLYSIS. 10/24/24406 Seymour L White. Performed By: #### L 500.2500 #### [facility] [address] [place], [address] Potassium [Moles/Vol] 4.7 mmol/L Normal 3.3-5.1 [facility] Comment on above: Order Comment: REDRA W. PREVIOUS SPECIMEN REJECTED DUE TO HEMOLYSIS. 10/24/24406 Seymour L White. Result Comment: Hemo lysis present, Results??could be affected. ?? Performed By: #### L 500.2500 #### [facility] [address] [place], [address] Sodium [Moles/Vol] 137 mmol/L Normal 133-145 [facility] Comment on above: Order Comment: REDRA W. PREVIOUS SPECIMEN REJECTED DUE TO HEMOLYSIS. 10/24/24406 Seymour L White. Performed By: #### L 500.2500 #### [facility] [address] [place], [address] Urea nitrogen [Mass/Vol] 18 mg/dL Normal - [facility] Comment on above: Order Comment: REDRA W. PREVIOUS SPECIMEN REJECTED DUE TO HEMOLYSIS. 10/24/24406 Seymour L White. Performed By: #### L 500.2500 #### [facility] [address] [place], [address] BUN Normal - [facility] Comment on above: Result Comment: This specimen has been REJECTED due to Laboratory criteria: Hemolyzed. ZOILA POWER has been notified of need of recollection. 10/24/24406 Seymour L White Performed By: #### L 100.0100, L500.2500 #### [facility] [address] [place], [address] BUN/CRE Normal - [facility] Comment on above: Result Comment: This specimen has been REJECTED due to Laboratory criteria: Hemolyzed. ZOILA POWER has been notified of need of recollection. 10/24/24406 Seymour L White Performed By: #### L 100.0100, L500.2500 #### [facility] [address] [place], [address] Calcium Normal 7.6-11.0 [facility] Comment on above: Result Comment: This specimen has been REJECTED due to Laboratory criteria: Hemolyzed. ZOILA POWER has been notified of need of recollection. 10/24/24406 Seymour L White Performed By: #### L 100.0100, L500.2500 #### [facility] [address] [place], [address] CL Normal 98-108 [facility] Comment on above: Result Comment: This specimen has been REJECTED due to Laboratory criteria: Hemolyzed. ZOILA POWER has been notified of need of recollection. 10/24/24406 Seymour L White Performed By: #### L 100.0100, L500.2500 #### [facility] [address] [place], [address] CO2 Normal 21.0-32.0 [facility] Comment on above: Result Comment: This specimen has been REJECTED due to Laboratory criteria: Hemolyzed. ZOILA POWER has been notified of need of recollection. 10/24/24406 Seymour L White Performed By: #### L 100.0100, L500.2500 #### [facility] [address] [place], [address] CREAT,SERUM Normal 0.70-1.20 [facility] Comment on above: Result Comment: This specimen has been REJECTED due to Laboratory criteria: Hemolyzed. ZOILA POWER has been notified of need of recollection. 10/24/24406 Seymour L White Performed By: #### L 100.0100, L500.2500 #### [facility] [address] [place], [address] eGFR Normal >60 [facility] Comment on above: Result Comment: This specimen has been REJECTED due to Laboratory criteria: Hemolyzed. ZOILA POWER has been notified of need of recollection. 10/24/24406 Seymour L White Performed By: #### L 100.0100, L500.2500 #### [facility] [address] [place], [address] GAP Normal 5-15 [facility] Comment on above: Result Comment: This specimen has been REJECTED due to Laboratory criteria: Hemolyzed. ZOILA POWER has been notified of need of recollection. 10/24/24406 Seymour L White Performed By: #### L 100.0100, L500.2500 #### [facility] [address] [place], [address] GLU Normal 70-99 [facility] Comment on above: Result Comment: This specimen has been REJECTED due to Laboratory criteria: Hemolyzed. ZOILA POWER has been notified of need of recollection. 10/24/24406 Seymour L White Performed By: #### L 100.0100, L500.2500 #### [facility] [address] [place], [address] Potassium Normal 3.3-5.1 [facility] Comment on above: Result Comment: This specimen has been REJECTED due to Laboratory criteria: Hemolyzed. ZOILA POWER has been notified of need of recollection. 10/24/24406 Seymour L White Performed By: #### L 100.0100, L500.2500 #### [facility] [address] [place], [address] Basic Metabolic Profile (BMP) Normal 133-145 [facility] Comment on above: Result Comment: This specimen has been REJECTED due to Laboratory criteria: Hemolyzed. ZOILA POWER has been notified of need of recollection. 10/24/24406 Seymour L White Performed By: #### L 100.0100, L500.2500 #### [facility] [address] [place], [address] Basophil percentageOrdered B y: Eriberto Ortiz on 10-24-2024 Basophils/100 WBC (Bld) 0.2 % 0-1 [facility] CBC W/Diff, Automatedon 10-15 0-2024 Absolute Lymph 1.16 X10 3/uL Normal 0.83-4.51 [facility] Comment on above: Performed By: #### L 100.0100, L500.2500 #### [facility] [address] [place], [address] Absolute Neut 9.1 X10 3/uL High 2.0-7.7 [facility] Comment on above: Performed By: #### L 100.0100, L500.2500 #### [facility] [address] [place], [address] Basophils/100 WBC (Bld) 0.2 % Normal 0-1 [facility] Comment on above: Performed By: #### L 100.0100, L500.2500 #### [facility] [address] [place], [address] Eosinophils/100 WBC (Bld) 0.0 % Normal 0-5 [facility] Comment on above: Performed By: #### L 100.0100, L500.2500 #### [facility] [address] [place], [address] Erythrocyte distribution width (RBC) [Ratio] 12.8 % Normal 11.6-14.6 [facility] Comment on above: Performed By: #### L 100.0100, L500.2500 #### [facility] [address] [place], [address] Hematocrit (Bld) [Volume fraction] 34.3 % Low 40-54 [facility] Comment on above: Performed By: #### L 100.0100, L500.2500 #### [facility] [address] [place], [address] Hemoglobin (Bld) [Mass/Vol] 11.8 g/dL Low 13.0-16.5 [facility] Comment on above: Performed By: #### L 100.0100, L500.2500 #### [facility] [address] [place], [address] IG% 0.500 Normal 0.0-0.9 [facility] Comment on above: Result Comment: IG% - Immature Granulocytes (promyelocytes, myelocytes and metamyelocytes) > 1% indicates that a LEFT SHIFT is Present. Performed By: #### L 100.0100, L500.2500 #### [facility] [address] [place], [address] Lymphocytes/100 WBC (Bld) 10.4 % Low 19-41 [facility] Comment on above: Performed By: #### L 100.0100, L500.2500 #### [facility] [address] [place], [address] MCH (RBC) [Entitic mass] 31.4 pg Normal 27.0-32.0 [facility] Comment on above: Performed By: #### L 100.0100, L500.2500 #### [facility] [address] [place], [address] MCHC (RBC) [Mass/Vol] 34.4 g/dL Normal 32-36 [facility] Comment on above: Performed By: #### L 100.0100, L500.2500 #### [facility] [address] [place], [address] MCV (RBC) [Entitic vol] 91.2 fL Normal 80-94 [facility] Comment on above: Performed By: #### L 100.0100, L500.2500 #### [facility] [address] [place], [address] Monocytes/100 WBC (Bld) 7.5 % Normal 0-10 [facility] Comment on above: Performed By: #### L 100.0100, L500.2500 #### [facility] [address] [place], [address] Neutrophils/100 WBC (Bld) 81.4 % High 47-70 [facility] Comment on above: Performed By: #### L 100.0100, L500.2500 #### [facility] [address] [place], [address] Nucleated RBC (Bld) [#/Vol] 0 10*3/uL Normal 0-5 [facility] Comment on above: Performed By: #### L 100.0100, L500.2500 #### [facility] [address] [place], [address] Platelet mean volume (Bld) [Entitic vol] 10.6 fL Normal 6.2-12.0 [facility] Comment on above: Performed By: #### L 100.0100, L500.2500 #### [facility] [address] [place], [address] Platelets (Bld) [#/Vol] 190 10*3/uL Normal 150-450 [facility] Comment on above: Performed By: #### L 100.0100, L500.2500 #### [facility] [address] [place], [address] RBC (Bld) [#/Vol] 3.76 10*6/uL Low 4.6-6.2 [facility] Comment on above: Performed By: #### L 100.0100, L500.2500 #### [facility] [address] [place], [address] RDW SD 41.9 fl Normal 35.1-43.9 [facility] Comment on above: Performed By: #### L 100.0100, L500.2500 #### [facility] [address] [place], [address] WBC (Bld) [#/Vol] 11.1 10*3/uL High 4.4-11.0 [facility] Comment on above: Performed By: #### L 100.0100, L500.2500 #### [facility] [address] [place], [place], [address] Carbon dioxide, total [Moles /volume] in Central venous bloodOrdered By: Eriberto Ortiz on 10-24-2024 CO2 [Moles/Vol] 22.3 mmol/L 21.0-32.0 [facility] Chloride assayOrdered By: Wood Ortiz on 10-24-2024 Chloride [Moles/Vol] 104 mmol/L 98-108 [facility] Eosinophil percentageOrdered By: Eribertoorlando Ortiz on 10-24-2024 Eosinophils/100 WBC (Bld) 0.0 % 0-5 [facility] Erythrocyte distribution wid th ratioOrdered By: Eriberto Ortiz on 10-24-2024 Erythrocyte distribution width (RBC) [Ratio] 12.8 % 11.6-14.6 [facility] Erythrocyte distribution wid th standard deviationOrdered By: Eribertoorlando Ortiz on 10-24-2024 Erythrocyte distribution width (RBC) [Ratio] 41.9 fl 35.1-43.9 [facility] Glomerular filtration rate ( GFR) estimation/1.73 sq m using serum, plasma, or whole bOrdered By: Eriberto Ortiz on 10-24-2024 GFR/1.73 sq M.predicted among non-blacks MDRD (S/P/Bld) [Vol rate/Area] 79 mL/min/{1.73_m2} >60 [facility] Comment on above: mL/min/1.73m2 CKD-EP I Creatinine Equation (2020) Hematocrit Auto (Bld) [Volum e fraction]Ordered By: Eriberto Ortiz on 10-24-2024 Hematocrit (Bld) [Volume fraction] 34.3 % Low 40-54 [facility] Hemoglobin measurementOrdere d By: Eriberto Ortiz on 10-24-2024 Hemoglobin (Bld) [Mass/Vol] 11.8 g/dL Low 13.0-16.5 [facility] Immature granulocytes/100 WB C Auto (Bld)Ordered By: Eriberto Ortiz on 10-24-2024 Immature granulocytes/100 WBC (Bld) 0.500 % 0.0-0.9 [facility] Comment on above: IG% - Immature Granu locytes (promyelocytes, myelocytes and metamyelocytes) > 1% indicates that a LEFT SHIFT is Present. MCV (mean corpuscular volume ) determinationOrdered By: Eriberto Ortiz on 10-24-2024 MCV (RBC) [Entitic vol] 91.2 fL 80-94 [place] Mean corpuscular hemoglobin (MCH) determinationOrdered By: Eriberto Ortiz on 10-24-2024 MCH (RBC) [Entitic mass] 31.4 pg 27.0-32.0 [facility] Mean corpuscular hemoglobin concentration (MCHC) determinationOrdered By: Eriberto Ortiz on 10-24-2024 MCHC (RBC) [Mass/Vol] 34.4 g/dL 32-36 [facility] Mean platelet volume determi nationOrdered By: Eriberto Ortiz on 10-24-2024 Platelet mean volume (Bld) [Entitic vol] 10.6 fL 6.2-12.0 [facility] Monocyte percentageOrdered B y: Eriberto Ortiz on 10-24-2024 Monocytes/100 WBC (Bld) 7.5 % 0-10 [facility] Neutrophil percentageOrdered By: Eriberto Ortiz on 10-24-2024 Neutrophils/100 WBC (Bld) 81.4 % High 47-70 [facility] Nucleated red blood cell per centageOrdered By: Eriberto Ortiz on 10-24-2024 Nucleated RBC/100 WBC (Bld) [Ratio] 0 % 0-5 [facility] Platelet countOrdered By: Wood Ortiz on 10-24-2024 Platelets (Bld) [#/Vol] 190 10*3/uL 150-450 [facility] Potassium measurement (mass/ volume)Ordered By: Eriberto Ortiz on 10-24-2024 Potassium (Unsp spec) [Mass/Vol] 4.7 mmol/L 3.3-5.1 [facility] Comment on above: Hemolysis present, R esults could be affected. RBC Auto (Bld) [#/Vol]Ordere d By: Eriberto Welchey on 10-24-2024 RBC (Bld) [#/Vol] 3.76 10*6/uL Low 4.6-6.2 [facility] Serum creatinine measurement (mass/volume)Ordered By: Eriberto Ortiz on 10-24-2024 Creatinine [Mass/Vol] 0.93 mg/dL 0.70-1.20 [facility] Serum glucose measurement (m ass/volume)Ordered By: Eriberto Ortiz on 10-24-2024 Glucose [Mass/Vol] 129 mg/dL High 70-99 [facility] Serum or plasma calcium yasmeen urement (mass/volume)Ordered By: Eriberto Ortiz on 10-24-2024 Calcium [Mass/Vol] 7.9 mg/dL 7.6-11.0 [facility] Serum or plasma urea nitroge n measurement (mass/volume)Ordered By: Eriberto Ortiz on 10-24-2024 Urea nitrogen [Mass/Vol] 18 mg/dL 4-19 [facility] Sodium levelOrdered By: Eriberto Diana on 10-24-2024 Sodium [Moles/Vol] 137 mmol/L 133-145 [facility] White blood cell (WBC) count Ordered By: Eriberto Ortiz on 10-24-2024 WBC (Bld) [#/Vol] 11.1 10*3/uL High 4.4-11.0 [facility] MR/POSTOP.ANEon 10-23-2024 MR/POSTOP.[facility] Medical Records Department [address] [place] [address] Anesthesia Postop Eval I 10/23/24 1554 MR#: [id number] Acct: [id number] Name: VICK ROMAN Rep #: [id number] : 1935 89 From: Edumnd Hyatt CRNA PCP: Dr. Stanley Kaiser MD Status:ADM IN Y Race: C Location: ICU ICU05- Anesthesia: Postop Eval I Current Vital Signs Temperature: 97 F Pulse Rate: 64 Blood Pressure: 132/80 Respiratory Rate: 15 Pulse Ox: 100 Oxygen Delivery Method: Venturi Mask Oxygen Flow Rate (L/min): 8 Assessment Airway patent: Yes Spontaneous unlabored respirations: Yes Mental status: Awake and Confused nausea: No Vomiting: No Anesthesia Complication: No Fluid Hydration Crystalloid volume administer (ml): 1,200 Total IV fluid infused: 1,200 Progress Note Anesthesia document: Postop Eval 1 completed: Yes 10/23/24 1555 Date Edmund Hyatt KEYLINER Cosigner Signature: Date CC: Signed Normal [facility] MR/[id number] 10-23-2024 [facility] Medical Records Department [address] [place] [address] Anesthesia Postop Eval II 10/23/24 1634 MR#: [id number] Acct: [id number] Name: VICK ROMAN Rep #: [id number] : 1935 89 From: Elkin Larson MD PCP: Dr. Stanley Kaiser MD Status:ADM IN Y Race: C Location: ICU ICU- Anesthesia Postop Eval I Sum Postop Eval Completion status Anesthesia document: Postop Eval 1 completed: Yes Anesthesia Postop Eval I Summary Anesthesia Postop Eval I Summary: Anesthesia Postop Eval I: Assessment Summary Airway patent Yes 10/23/24 15:55 [email or web address] Spontaneous unlabored Yes 10/23/24 15:55 [email or web address] respirations Mental status Awake,Confused 10/23/24 15:55 [email or web address] nausea No 10/23/24 15:55 [email or web address] Vomiting No 10/23/24 15:55 [email or web address] Anesthesia Postop Eval I: Fluid Summary Crystalloid volume administer 1,200 10/23/24 15:55 [email or web address] (ml) Colloids volume administered ( ml) Blood Product volume administered (ml) Total IV fluid infused 1,200 10/23/24 15:55 [email or web address] Anesthesia Postop Eval I: Summary Notes Anesthesia Complication No 10/23/24 15:55 [email or web address] Anesthesia Complication Comment: Post-operative progress note Anesthesia: Postop Eval II Evaluation Mental status: Awake Pain Level: 0 nausea: No Vomiting: No 10/23/24 1634 Date Elkin Bernal Signature: Date CC: Signed Normal [facility] Operative Reporton [address] [facility] Medical Records Department [address] [place] [address] Operative Report 10/23/24 1646 MR#: [id number] Acct: [id number] Name: VICK ROMAN Rep #: [id number] : 1935 89 From: Eriberto Ortiz MD PCP: Dr. Stanley Kaiser MD Status:ADM IN Location: ICU [place] [address] Operative Report (Standard) Operative Information Date of Procedure: 10/23/24 Pre-Operative Diagnosis: Infrarenal abdominal aortic aneurysm Post-Operative Diagnosis: Same Surgery/Procedure Performed: Endovascular repair of abdominal aortic aneurysm with percutaneous access Placement Palmaz balloon expandable stent reinforcing the proximal landing zone parquet floor layer's helper: Yes Relief Charge Nurse: Ralph Monteiro Tasks completed by certified anesthesiologist assistant: Opening, Closing, Opening closing and Implanting device Type of Anesthesia: General RN Documented Start/Stop Times: Operation Date: 10/23/24 11:00 Case Time Into Pre-Op 10/23/24 09:07 Out of Pre-Op 10/23/24 11:30 Into Recovery 10/23/24 15:45 Procedure Start Time: 12:50 Procedure Stop Time: 15:00 Select all DRAINS/GRAFTS/IMPLANTS that apply: Prosthetic device Prosthetic device details: Endologix alto 29 mm main body Ovation iliac limb 16 x 120, right common iliac Ovation iliac limb 14 x 140, left common iliac Palmaz P4010 Estimated Blood Loss: 20 Specimen collected: No Description of surgery: HPI: Patient is an 89-year-old male with an abdominal aortic aneurysm which has been followed with serial imaging. This has grown in size it is now 5.9 cm and the patient wishes to proceed with repair. He is anatomy that is amenable to stent graft so he presents now for elective endovascular aneurysm repair. Description of procedure: Upon obtaining informed consent and verification correct patient procedure site the patient was taken to the [facility] where he was placed under general anesthesia. He was then positioned prepped and draped in usual sterile fashion a time was performed. Under ultrasound guidance the right common femoral artery was accessed with a micropuncture needle wire which was then exchanged for a micropuncture sheath. Through this a hand-injection iliofemoral angiogram was performed revealing satisfactory positioning with no extravasation or dissection. Through the micropuncture sheath a Bentson wire was advanced and the micropuncture sheath exchanged for short 6 Mexican sheath dilate the tract. This sheath was then withdrawn and a pair of Pro-glide suture mediated closure devices were deployed in preclose technique. After suture device deployment an 8 Mexican sheath was advanced over the wire and positioned in the distal common iliac artery. Next under ultrasound guidance the left common femoral artery was accessed with a micropuncture needle and wire. This then exchanged for a micropuncture sheath through which a hand-injection iliofemoral angiogram was performed revealing satisfactory positioning no extravasation or dissection. Through the micropuncture sheath a Bentson wire is advanced and the micropuncture sheath exchanged for short 6 Mexican sheath. There is significant amount of tortuosity in the iliac artery and the Bentson wire would not navigate into the aorta so a KMP catheter was advanced through the 6 Mexican sheath and the Bentson wire exchanged for an angled Glidewire which was advanced into the abdominal aorta. The catheter was then advanced and the wire withdrawn and a Bentson wire advanced after which the catheter and short 6 Mexican sheath were withdrawn and a pair of Pro-glide suture mediated closure devices were deployed in preclose technique. Once the devices were deployed an 8 Mexican sheath was advanced into the ipsilateral proximal external iliac artery. The patient was then heparinized allowed to circulate for 3 minutes with subsequent heparin dosing based on ACT results. Via the right femoral access sheath the Bentson wire and a KMP catheter were advanced into the mid descending thoracic aorta and a Bentson wire exchanged for a Lunderquist wire. The left femoral access Bentson wire was advanced into the visceral segment abdominal aorta and a marker pigtail catheter positioned at the L2 vertebral body. The right femoral 8 Mexican sheath was then withdrawn and the Endologix [place] 29 mm main body was advanced into position just above the L2 vertebral body. Oblique view subtraction aortogram was then performed under magnification to confirm the origins of the bilateral renal arteries with the right being the lowest. The main body device top crown was then deployed in satisfactory position with the superior edge of the fabric at the lower edge of the right renal artery. The polymer injection system was then attached to the deployment system and the predetermined polymer volume infused with the autoinjector. While this was infusing the left iliac limb was cannulated via t (more content not included)... Normal [facility] Basic Metabolic Profile (BMP )on 10-10-2024 BUN/CRE 25.9 RATIO High 10-20 [facility] Comment on above: Performed By: #### L 500.2500 #### [facility] [address] [place], [address] Calcium [Mass/Vol] 9.2 mg/dL Normal 7.6-11.0 [facility] Comment on above: Performed By: #### L 500.2500 #### [facility] [address] [place], [address] Chloride [Moles/Vol] 103 mmol/L Normal 98-108 [facility] Comment on above: Performed By: #### L 500.2500 #### [facility] [address] [place], [address] CO2 [Moles/Vol] 24.6 mmol/L Normal 21.0-32.0 [facility] Comment on above: Performed By: #### L 500.2500 #### [facility] [address] [place], [address] Creatinine [Mass/Vol] 0.95 mg/dL Normal 0.70-1.20 [facility] Comment on above: Performed By: #### L 500.2500 #### [facility] [address] [facility] [address] GAP 12 Normal 5-15 [facility] Comment on above: Performed By: #### L 500.2500 #### [facility] [address] [place], [address] GFR/1.73 sq M.predicted among non-blacks MDRD (S/P/Bld) [Vol rate/Area] 77 mL/min/{1.73_m2} Normal >60 [facility] Comment on above: Result Comment: mL/m in/1.73m2 CKD-EPI Creatinine Equation (2020) Performed By: #### L 500.2500 #### [facility] [address] [place], [address] Glucose [Mass/Vol] 105 mg/dL High 70-99 [facility] Comment on above: Performed By: #### L 500.2500 #### [facility] [address] [place], [address] Potassium [Moles/Vol] 3.8 mmol/L Normal 3.3-5.1 [facility] Comment on above: Performed By: #### L 500.2500 #### [facility] [address] [place], [address] Sodium [Moles/Vol] 139 mmol/L Normal 133-145 [facility] Comment on above: Performed By: #### L 500.2500 #### [facility] [address] [place], [address] Urea nitrogen [Mass/Vol] 25 mg/dL High 4-19 [facility] Comment on above: Performed By: #### L 500.2500 #### [facility] [address] [place], [address] Magnesiumon 10-10-2024 Magnesium [Mass/Vol] 1.8 mg/dL Normal 1.5-2.2 [facility] Comment on above: Performed By: #### L 501.5200, L501.2300 ####[facility] [address] [place], [place], [address] Magnesium measurement (mass/ volume)Ordered By: Elkin Larson on 10-10-2024 Magnesium (Unsp spec) [Mass/Vol] 1.8 mg/dL 1.5-2.2 [facility] Phosphoruson 10-10-2024 Phosphate [Mass/Vol] 2.7 mg/dL Normal 2.7-4.5 [facility] Comment on above: Performed By: #### L 501.5200, L501.2300 ####[facility] [address] [place], [place], [id number] Type AND Screen - PAT ONLYon 10-10-2024 ABO and Rh group Nom (Bld) Blood group O Rh(D) positive Normal [facility] Comment on above: Order Comment: Surge ry Date: 10/23/24Reason for Laboratory Test [id number]/ANNSREPAIR AAA Performed By: #### B TSPAT ####[facility] [address] [facility] [place], [place], [address] MR/PAT.ANEon 10-06-2024 MR/PAT.[facility] Medical Records Department [address] [place] [address] PAT - Anesthesia 10/06/24 1011 MR#: [id number] Acct: [id number] Name: VICK ROMAN Rep #: [id number] : 1935 89 From: Elkin Larson MD PCP: Dr. Stanley Kaiser MD Status:PRE IN Y Race: C Location: [facility] Pre-Assessment Diagnosis/Proposed Procedure Planned Operative Procedure(s): ENDOVASCULAR REPAIR AAA Anesthesia History Anesthesia History - harp regulator: Anesthesia History - harp regulator Hx Hospitalization No 10/06/24 09:07 Any Problems With Anesthesia No 10/06/24 09:07 Cholinesterase deficiency No 10/06/24 09:07 You/Your Family Experience No 10/06/24 09:07 fever (hyperthermia) with Relationship Recent Exposure to Contagious No 07/05/17 13:11 Disease Does patient have nerve No 10/06/24 09:07 stimulator Patient instructed to have device shut off --Does patient have Pacemaker or ICD? When Was Last Pacemaker Check QUESTION #4 FULL TEXT: You/Your Family Experience fever (hyperthermia) with Anesthesia Last Oral Intake Last Oral intake: Last Oral Intake NPO since Meds taken in AM with sips of water? Meds patient instructed to take am of surgery PONV PONV - harp regulator: PONV - harp regulator Female No 10/06/24 09:07 HX of Motion Sickness No 10/06/24 09:07 HX of N/V After Surgery No 10/06/24 09:07 Non-Smoker No 10/06/24 09:07 Duration of Surgery greater Yes 10/06/24 09:07 than 60 minutes Number of Risk Factors 1 10/06/24 09:07 PONV Score Low Risk 10/06/24 09:07 Height Weight Height Weight: Anesthesia: Height Weight Height 5 ft 4 in 09/17/24 06:12 Respiratory Assessment Respiratory Assessment - harp regulator: Respiratory Tract Infection Hx - harp regulator Hx Respiratory Tract Infection No 10/06/24 09:07 STOP Sleep Apnea STOP Sleep Apnea - harp regulator: STOP Sleep Apnea - harp regulator Hx Hypertension Yes: JUST STARTED BP MED 10/06/24 09:07 AND CONTROLLED Hx Sleep Apnea No 10/06/24 09:07 CPAP BIPAP Do you snore loudly (louder No 10/06/24 09:07 than talking or can be heard Do you often feel tired/ No 10/06/24 09:07 fatigued/ sleepy during daytime? Has anyone observed you stop No 10/06/24 09:07 breathing during sleep? STOP Results Negative 10/06/24 09:07 QUESTION #5 FULL TEXT : Do you snore loudly (louder than talking or can be heard through closed doors)? Tobacco Use History Tobacco Use History - harp regulator: Tobacco Use History - harp regulator Tobacco Use Smoking Status Heavy Smoker (>10/day) 10/06/24 09:07 Hx Tobacco Use Yes 10/06/24 09:07 Years Smoking Packs Smoked per Day Smoking Cessation Date was within the last 15 years Hx Smoking Cessation Date Hx Smoking Cessation Counseling Hematologic Medial History Hematologic Hx - harp regulator: Hematologic Medical Hx - floor scraper Hx of Blood Transfusion No 10/06/24 09:07 Hx of Transfusion in last 3 No 10/06/24 09:07 Months Date of Last Transfusion (if within last 3 months) Ever experience any problems No 10/06/24 09:07 with transfusion(s)? Specify any problems Hx of Preganancy in last 3 N/A 10/06/24 09:07 Months Nurse Filling Out Transfusion DSCHRIBER 10/06/24 09:07 Questions: Date: 10/06/24 10/06/24 09:07 Time: 09:10 10/06/24 09:07 Patient unable to answer at this time (ie. confused, unrespo /Reproduction History /Reproductive History - harp regulator: /Reproductive Hx- harp regulator Hx Now No 10/06/24 09:07 Gestational Age (in weeks): EDC: Hx Hx Para Hx Section SAB No 10/06/24 09:07 [facility] Medical History (Updated 10/06/24 @ 09:26 by Cynthia Wang) Alcohol use Loss of hearing Wears glasses Wears dentures History of stress test Cardiology follow-up encounter Hyperlipidemia AAA (abdominal aortic aneurysm) without rupture Hypertension Non-Hodgkin lymphoma Skin lesion History of colon polyps Home Medications ???Medication ???Instructions ???Recorded ???Last Taken ???Type atorvastatin 80 mg tablet 80 mg PO DAILY #30 tabs 06/17/22 U nknown Rx aspirin 81 mg tablet,delayed 81 mg PO QDAY 09/18/24 09/26/24 Hi story release losartan 50 mg-hydrochlorothiazide 0.5 tab PO QDAY 10/06/24 Unknown History 12.5 mg tablet Allergy/AdvReac Type Severity Reaction Status Date / Time No Known Allergies Allergy Verified 10/06/24 09:04 Family History Brother Heart disease Mother , age 31 Cancer (more content not included)... Normal [facility] 12 Lead EKG performed by [facility] [place] [place] on 09-26-2024 12 Lead EKG performed by [facility] [address] [place] [address] 12 Lead EKG performed by [facility] [place] 09/26/24 1535 MR#: [id number] Acct: [id number] Name: VICK ROMAN Rep #: [id number] : 1935 89 From: Brayan Breaux MD Attending Dr: Dr. Brayan Breaux MD Status: DE P AMB Ordering Dr: Brayan Breaux MD Date: 09/26/24 Location: [facility] [place] Sex: M C Admitted: BMS/12 Lead EKG performed by [facility] [place] [place] ECG Report Interpretation ----Sinus Rhythm -Right bundle branch block with left axis -bifascicular block. -Left atrial enlargement. ABNORMAL Electronically signed on 09/26/2024 at 14:[address] Brayan Breaux [employer] Version [id number] 09/26/24 1456 Date Brayan Breaux MD CC: Dr. Stanley Kaiser MD Date Dictated: 09/26/241534 Date Transcribed: 09/26/241534 Manager Cosmetic: Signed Normal [facility] Cardiology Visit Reporton Cardiology Visit Report [facility] [address] [place], [place] [address] OFFICE VISIT Date of Service: 09/26/24 MR#: [id number] Acct: [id number] Name: VICK ROMAN Rep #: [id number] : 1935 Provider: Dr. Brayan goss MD Age/Sex: 89/M Location: [facility] [place] Status: Signed HPI HPI History of Present Illness Details: Patient is a very pleasant 89-year-old white male that comes in today for new patient visit for preop clearance. The patient is been followed by Dr. Eriberto Ortiz for his abdominal aortic aneurysm. It was recently reevaluated September 17, 2024 and his aneurysm was measuring up to 6 cm on the CTA of the abdomen and pelvis. The patient is being evaluated for percutaneous repair of his abdominal aortic aneurysm. This is an infrarenal aneurysm. The patient carries a history of hypertension today in his office is 184/90. He also has a history of continuous smoking. He has a history of hyperlipidemia which is well-controlled on atorvastatin. The patient reports that he walks on a routine basis he has noticed no drop-off in his exercise tolerance recently. He is able to go a flight of stairs without restrictions. He denies any chest tightness or squeezing. He had a negative stress test March 2013 which showed normal function with no evidence of infarct or ischemia. The patient's EKG in the office today shows sinus rhythm at 63 bpm with a right bundle branch block left anterior fascicular block and possible left atrial enlargement. There is no evidence of ischemia. The patient has a history of recurrence of low-grade non-Hodgkin lymphoma. He has had at least 3 episodes over several years. Intake Vital Signs 09/17/24 06:12 09/26/24 13:42 Height 5 ft 4 in 5 ft 4 in Weight: 129 lb BMI 22.1 BP 184/90 H Blood Pressure Location Lt brachial Position Sitting Respiration 18 Pulse 61 Pulse Source Monitor Pulse Oximetry (%) 93 Oxygen Delivery Method room air Intake Visit Reasons: Surgical Clearance (Diana) Clinical Data Assistant Required: No Accompanied by: Self Is patient in pain?: No Allergies No Known Allergies Allergy (Verified 09/26/24 13:42) Medications ???Medication ???Instructions ???Recorded ???Confirmed ???Type atorvastatin 80 mg tablet 80 mg PO DAILY #30 tabs 06/17/22 0 09/26/24 Rx aspirin 81 mg tablet,delayed 81 mg PO QDAY 09/18/24 09/26/24 Hi story release losartan 50 mg-hydrochlorothiazide 1 tab PO QDAY #30 tabs 09/26/24 09/26/24 Rx 12.5 mg tablet Have you fallen in the past year?: No PFSH Medical History Hypertension Tobacco abuse Hyperlipidemia AAA (abdominal aortic aneurysm) without rupture Non-Hodgkin lymphoma Skin lesion Change in bowel habits History of colon polyps Surgical History Status post excisional biopsy S/P colonoscopy History of colectomy Family History Brother Heart disease Mother , age 31 Cancer Social History Smoking Status: Heavy Smoker (>10/day) alcohol intake: never substance use type: does not use caffeine: Yes ROS Const Const: Negative for fatigue or weakness ENT ENT: Negative for dizziness or balance problems Cardio Chest Pain: No Palpitations: No Edema: None Muscle aches with walking: None Resp Respiratory: Negative for SOB with activity, SOB at rest or SOB orthopnea SOB lying down GI GI: Negative nausea, vomiting or heartburn Musc Musc: Negative for muscle weakness or balance problems Neuro Neuro: Negative for dizziness, lightheadedness, near syncope, syncope or weakness Endo Endo: Negative for fatigue Cardiology Exam Const Appearance: cooperative, comfortable and no acute distress Nutritional Appearance: thin Head Head: normal to inspection Eyes General: appearance normal, both eyes and all related structures Neck Neck: normal visual inspection and no JVD Carotids: Negative bruit Chest Chest inspection: pectus excavatum Auscultation: Bilateral: Rhonchi (Scant across the posterior aspect of his lungs.) Cardio Rate: regular rate Rhythm: regular rhythm Heart sounds: S1 normal and S2 normal; Negative rub, gallop or murmur GI GI: normal to inspection Neuro General: patient alert and patient oriented x3 Extremities Lower Extremity Edema: None: Bilateral Psych Psychological: normal affect Supplemental Info Supplemental Information Labs: No Data to Display Diagnostics: Electrocardiogram Abdomen/Pelvis CT Pulmonary: No Data to Display Past Visits: Cardiology Visit 09/26/24 Assessment and (more content not included)... Normal [facility] 09-18-2024 [facility] Telephone (SHEKHAR) VICK ROMAN ([id number]) 1935 M Date Time Provider Department 09/18/24 TOMAS FONTENOT During your visit today, we recorded the following information about you: Tomas Fontenot, 09/18/2024 5:04 PM Signed Can let him know total bilirubin back to normal. Direct bilirubin slightly elevated but that is of no consequence. Britta Hernandez LPN 09/19/2024 10:00 AM Signed Spoke with pt., given lab results, voiced understandibng. Britta Hernandez LPN Allergies As of Date: 09/18/2024 (No Known Allergies) Date Reviewed: 09/13/2024 Reviewed by: Tomas Fontenot DO - Fully Assessed Reason for Visit: Results [95] Prescriptions as of 09/19/2024 - atorvastatin (LIPITOR) 80 mg tablet Take 1 tablet by mouth once daily. - aspirin 81 mg cap Take 1 tablet by mouth once daily. Meds Comments as of 05/30/2013: No Rx, routine supplement or otc Problem List As Of Date 09/18/2024 Noted Resolved Lymphoma [C85.90] 10/24/2012 Colon polyp [K63.5] 03/02/2013 Benign neoplasm of colon [D12.6] 04/27/2014 04/27/2014 Abdominal aortic aneurysm (AAA) (HCC) [I71.40] 07/02/2022 Abdominal pain [R10.9] 06/26/2022 07/07/2024 Altered bowel function [R19.8] 11/20/2022 12/25/2022 Essential (primary) hypertension [I10] 11/20/2022 History of colectomy [Z90.49] 11/20/2022 History of colonic polyps [Z86.0100] 11/20/2022 12/25/2022 Skin lesion [L98.9] 11/20/2022 12/25/2022 Tobacco user [Z72.0] 11/20/2022 Prediabetes [R73.03] 06/18/2023 History of lymphoma [Z85.72] 06/30/2023 Encounter Status:Closed by BRITTA HERNANDEZ on 09/19/24 Normal [facility] Comprehensive metabolic 2000 panelon 09-18-2024 Albumin [Mass/Vol] 4.3 g/dL Normal 3.9-4.9 [facility] Comment on above: Order Comment: Speci men Type: BLOOD SPECIMENOrdering Facility: [facility] Address: [address] [place] [address] [place] [address] Performed By: #### 2 7281-8, DBIL ####[facility] MILLTOWNCLIA [id number] [place] [address] [place] ALP [Catalytic activity/Vol] 90 U/L Normal 38-113 [facility] Comment on above: Order Comment: Speci men Type: BLOOD SPECIMENOrdering Facility: [facility] Address: [address] [place] [address] Performed By: #### 2 4323-8, DBIL ####[facility] [id number] [place] [address] [place] ALT [Catalytic activity/Vol] 20 U/L Normal 10-54 [facility] Comment on above: Order Comment: Speci men Type: BLOOD SPECIMENOrdering Facility: [facility] Address: [address] [place] [address] Performed By: #### 2 4323-8, DBIL ####[facility] [id number] [place] [address] [place] Anion gap [Moles/Vol] 9 mmol/L Normal 8-15 [facility] Comment on above: Order Comment: Speci men Type: BLOOD SPECIMENOrdering Facility: [facility] Address: [address] [place] [address] Performed By: #### 2 4323-8, DBIL ####[facility] MILLWNCLIA [id number] [place] [address] [place] AST [Catalytic activity/Vol] 20 U/L Normal 14-40 [facility] Comment on above: Order Comment: Speci men Type: BLOOD SPECIMENOrdering Facility: [facility] Address: [address] [place] [address] Performed By: #### 2 4323-8, DBIL ####[facility] [id number] [place] [address] [place] Bilirubin [Mass/Vol] 1.1 mg/dL Normal 0.2-1.3 [facility] Comment on above: Order Comment: Speci men Type: BLOOD SPECIMENOrdering Facility: [facility] Address: [address] [place] [address] Performed By: #### 2 4323-8, DBIL ####[facility] ERNCLIA [id number] [place] [address] [place] Calcium [Mass/Vol] 9.6 mg/dL Normal 8.5-10.2 [facility] Comment on above: Order Comment: Speci men Type: BLOOD SPECIMENOrdering Facility: [facility] Address: [address] [place] [address] Performed By: #### 2 4323-8, DBIL ####[facility]IT[facility] [id number] [place] [address] [place] Chloride [Moles/Vol] 102 mmol/L Normal 98-107 [facility] Comment on above: Order Comment: Speci men Type: BLOOD SPECIMENOrdering Facility: [facility] Address: [address] [place] [address] Performed By: #### 2 4323-8, DBIL ####[facility] ERNCLIA [id number] [place] [address] [place] CO2 [Moles/Vol] 28 mmol/L Normal 22-30 [facility] Comment on above: Order Comment: Speci men Type: BLOOD SPECIMENOrdering Facility: [facility] Address: [address] [place] [address] Performed By: #### 2 4323-8, DBIL ####[facility] ERNCLIA [id number] [place] [address] [place] Creatinine [Mass/Vol] 1.07 mg/dL Normal 0.73-1.22 [facility] Comment on above: Order Comment: Speci men Type: BLOOD SPECIMENOrdering Facility: [facility] Address: [address] [place] [address] Performed By: #### 2 4323-8, DBIL ####[facility] ERNCS[facility] [id number] [place] [address] [place] Creatinine and Glomerular filtration rate.predicted panel (S/P/Bld) 67 mL/min/1.73m??? Normal >=60 [facility] Comment on above: Order Comment: Vanna benítez Type: BLOOD SPECIMENOrdering Facility: [facility] Address: [address] [place] [address] Result Comment: Renate mated Glomerular Filtration Rate (eGFR) is calculated using the 2020 CKD-EPI creatinine equation. This equation utilizes serum creatinine, sex, and age as parameters. The creatinine assay has traceable calibration to isotope dilution-mass spectrometry. Refer to KDIGO guidelines for clinical interpretation. In patients with unstable renal function, e.g. those with acute kidney injury, the eGFR may not accurately reflect actual GFR. Performed By: #### 2 4323-8, DBIL ####[facility] RIVERSIDEA [id number] [place] [address] [place] Glucose [Mass/Vol] 109 mg/dL High 74-99 [facility] Comment on above: Order Comment: Vanna benítez Type: BLOOD SPECIMENOrdering Facility: [facility] Address: [address] [place] [address] Result Comment: The [place] Diabetes Association (ADA) provides guidance for cutoff values for fasting glucose and random glucose. The ADA defines fasting as no caloric intake for at least 8 hours. Fasting plasma glucose results between 100 to 125 mg/dL indicate increased risk for diabetes (prediabetes). Fasting plasma glucose results greater than or equal to 126 mg/dL meet the criteria for diagnosis of diabetes. In the absence of unequivocal hyperglycemia, results should be confirmed by repeat testing. In a patient with classic symptoms of hyperglycemia or hyperglycemic crisis, random plasma glucose results greater than or equal to 200 mg/dL meet the criteria for diagnosis of diabetes. Reference: Standards of Medical Care in Diabetes 2016, [place] [employer]. Diabetes Care. 2016.39(Suppl 1). Performed By: #### 2 4323-8, DBIL ####[facility] DONNAROWESVILLEVIKTORIYA [id number] [place] [address] [place] Potassium [Moles/Vol] 3.6 mmol/L Low 3.7-5.1 [facility] Comment on above: Order Comment: Speci men Type: BLOOD SPECIMENOrdering Facility: [facility] Address: [address] [place] [address] Performed By: #### 2 4323-8, DBIL ####[facility] ERVIKTORIYA [id number] [place] [address] [place] Protein [Mass/Vol] 7.3 g/dL Normal 6.3-8.0 [facility] Comment on above: Order Comment: Speci men Type: BLOOD SPECIMENOrdering Facility: [facility] Address: [address] [place] [address] Performed By: #### 2 4323-8, DBIL ####[facility] ERADAMCody [id number] [place] [address] [place] Sodium [Moles/Vol] 139 mmol/L Normal 136-144 [facility] Comment on above: Order Comment: Speci men Type: BLOOD SPECIMENOrdering Facility: [facility] Address: [address] [place] [address] Performed By: #### 2 4323-8, DBIL ####[facility]IT[facility] [id number] [place] [address] [place] Urea nitrogen [Mass/Vol] 21 mg/dL Normal 9-24 [facility] Comment on above: Order Comment: Speci men Type: BLOOD SPECIMENOrdering Facility: [facility] Address: [address] [place] [address] Performed By: #### 2 4323-8, DBIL ####[facility] ERNCLIA [id number] [place] [address] [place] DIRECT BILIRUBIN BLOODon Bilirubin.conjugated [Mass/Vol] 0.4 mg/dL High <0.3 [facility] Comment on above: Order Comment: Speci men Type: BLOOD SPECIMENOrdering Facility: [facility] Address: [address] [place] [address] Performed By: #### 2 4323-8, DBIL ####[facility] [id number] [place] [address] [place] MR/BMS.Tash 09-18-2024 MR/BMSEL [facility] [address] [place] [address] OFFICE VISIT Date of Service: 09/18/24 MR#: [id number] Acct: [id number] Name: VICK ROMAN Rep #: [id number] : 1935 Provider: Dr. Eriberto Ortiz MD Age/Sex: 89/M Location: [facility] [place] Status: Signed Intake Vital Signs 10/02/22 10:18 09/17/24 06:12 09/18/24 14:37 Height 5 ft 6 in 5 ft 4 in Weight: 129 lb BP 182/85 H Blood Pressure Location Lt brachial Position Sitting Respiration 16 Pulse 70 Pulse Source Monitor Temp 97.5 F L Temp Source Temporal Pulse Oximetry (%) 94 Oxygen Delivery Method room air Intake Visit Reasons: Discuss CTA results/2 Y FU Is patient in pain?: No Allergies No Known Allergies Allergy (Verified 09/18/24 14:39) Medications ???Medication ???Instructions ???Recorded ???Confirmed ???Type atorvastatin 80 mg tablet 80 mg PO DAILY #30 tabs 06/17/22 0 09/18/24 Rx aspirin 81 mg tablet,delayed 81 mg PO QDAY 09/18/24 09/18/24 Hi story release Have you fallen in the past year?: No PFSH Medical History Non-Hodgkin lymphoma Skin lesion Change in bowel habits History of colon polyps Surgical History Status post excisional biopsy S/P colonoscopy History of colectomy Family History Brother Heart disease Social History Smoking Status: Heavy Smoker (>10/day) alcohol intake: never HPI HPI HPI: VICK ROMAN, is a 89 M who presents to the office today for follow up of AAA. Last seen in 2022 with plans for serial imaging until reaches 5.[address] had been in mid 2022 when it measured 5.4 cm. He missed the imaging scheduled for 2023 due to his 's health at the time. Earlier this year he contacted us and has now had a new CTA. This shows growth to 5.9 cm. A few days after that scan he went to ED for abdominal pain with new scan showing no evidence of rupture; his pain resolved while in ED. He has history of lymphoma, diagnosed back in , currently it sounds as if it is in remission. ROS General General: No weight change, appetite, fatigue, colon cancer, breast cancer or weakness HEENT HEENT: No difficulty swallowing, eye injury, eye surgery, swollen glands or hoarseness Endo Endocrine: No thyroid disease, diabetes mellitus, thyroid cancer, Hair loss, heat intolerance or cold intolerance Skin Skin: No rash or changing moles Musc Musculoskeletal: No back problems, arthritis, rheumatoid arthritis, gout or joint pain Cardio Cardiovascular: No murmur, pacemaker, heart disease, atrial fibrillation, high blood pressure, heart attack, heart stent, palpitations, shortness of breath with exertion or chest pain Psych Psychiatric: No depression, anxiety or hearing voices Resp Respiratory: No shortness of breath, No sleep apnea, Yes cough, No COPD, No asthma, No emphysema and No wheezing Gastro Gastrointestinal: No abdominal pain, No nausea or vomiting, No diarrhea, No constipation, No blood in stool, No acid reflux, No hemorrhoids, No ulcers, No gallbladder problem and No black,tarry stools Brenden Hematologic: No blood thinners, No blood disorders, No bleeding, No anemia and No blood clots Neuro Neurologic: No system reviewed and no additional complaints, except as documented, No as per HPI, No abnormal gait, Yes abnormal hearing, No abnormal movements, No abnormal speech, No behavioral changes, No burning sensations, No confusion, No convulsions, No disequilibrium, No dizziness, No localized weakness, No frequent falls, No headache(s), No lack of coordination, No loss of vision, No memory loss, No numbness, No other visual disturbances, No radicular pain, No restless legs, No sensory deficit, No syncope, No tingling, No tremor(s), No weakness and No other Exam Const General: cooperative, healthy appearing, comfortable, no acute distress and well developed Nutritional Appearance: well nourished Orientation: alert, awake and oriented x3 HENMT Head: normocephalic and atraumatic Ears: hearing grossly normal bilaterally Nose: external nose normal Eyes General: appearance normal, both eyes and all related structures EOM: EOM intact bilaterally Neck Neck: normal visual inspection, full ROM, no lymphadenopathy and trachea midline Thyroid: thyroid normal Lymphatic: no lymphadenopathy noted Resp Effort Inspection: normal respiratory effort, able to speak in complete sentences, symmetric chest movement, no audible wheezes, not labored, no stridor and no use of accessory muscles Auscultation: clear to auscultation bilaterally and wheezes Cardio R (more content not included)... Normal [facility] Absolute lymphocyte countOrd ered By: Juan M Mendez on 09-17-2024 Lymphocytes Auto (Unsp spec) [#/Vol] 2.08 10*3/uL 0.83-4.51 [facility] Absolute neutrophil countOrd ered By: Juan M Mendez on 09-17-2024 Neutrophils (Bld) [#/Vol] 4.3 10*3/uL 2.0-7.7 [facility] Anion gap in Serum or Plasma Ordered By: Juan M Mendez on 09-17-2024 Anion gap [Moles/Vol] 10 mmol/L 5-15 [facility] Automated lymphocyte count a s percentage of total leukocytesOrdered By: Juan M Mendez on 09-17-2024 Lymphocytes/100 WBC Auto (Unsp spec) 27.6 % 19-41 [facility] BUN/creatinine ratioOrdered By: Juan M Mendez on 09-17-2024 Urea nitrogen/Creatinine [Mass ratio] 18.6 mg/mg 10-20 [facility] Basophil percentageOrdered B y: Juan M Mendez on 09-17-2024 Basophils/100 WBC (Bld) 1.1 % High 0-1 [facility] Bilirubin Test strip Ql (U)O rdered By: Juan M Mendez on 09-17-2024 Bilirubin Ql (U) Negative Negative [facility] Bilirubin, totalOrdered By: Juan Mmiles Mendez on 09-17-2024 Bilirubin [Mass/Vol] 0.88 mg/dL 0.00-1.30 [facility] CBC W/Diff, Automatedon Absolute Lymph 2.08 X10 3/uL Normal 0.83-4.51 [facility] Comment on above: Performed By: #### L 501.2450, L503.6005, L500.4050, L501.4021, L100.0100 #### [facility] [address] [place], [address] Absolute Neut 4.3 X10 3/uL Normal 2.0-7.7 [facility] Comment on above: Performed By: #### L 501.2450, L503.6005, L500.4050, L501.4021, L100.0100 #### [facility] [address] [place], [address] Basophils/100 WBC (Bld) 1.1 % High 0-1 [facility] Comment on above: Performed By: #### L 501.2450, L503.6005, L500.4050, L501.4021, L100.0100 #### [facility] [address] [place], [address] Eosinophils/100 WBC (Bld) 3.3 % Normal 0-5 [facility] Comment on above: Performed By: #### L 501.2450, L503.6005, L500.4050, L501.4021, L100.0100 #### [facility] [address] [place], [address] Erythrocyte distribution width (RBC) [Ratio] 12.8 % Normal 11.6-14.6 [facility] Comment on above: Performed By: #### L 501.2450, L503.6005, L500.4050, L501.4021, L100.0100 #### [facility] [address] [place], [address] Hematocrit (Bld) [Volume fraction] 43.9 % Normal 40-54 [facility] Comment on above: Performed By: #### L 501.2450, L503.6005, L500.4050, L501.4021, L100.0100 #### [facility] [address] [place], [address] Hemoglobin (Bld) [Mass/Vol] 15.0 g/dL Normal 13.0-16.5 [facility] Comment on above: Performed By: #### L 501.2450, L503.6005, L500.4050, L501.4021, L100.0100 #### [facility] [address] [place], [address] IG% 0.400 Normal 0.0-0.9 [facility] Comment on above: Result Comment: IG% - Immature Granulocytes (promyelocytes, myelocytes and metamyelocytes) > 1% indicates that a LEFT SHIFT is Present. Performed By: #### L 501.2450, L503.6005, L500.4050, L501.4021, L100.0100 #### [facility] [address] [place], [address] Lymphocytes/100 WBC (Bld) 27.6 % Normal 19-41 [facility] Comment on above: Performed By: #### L 501.2450, L503.6005, L500.4050, L501.4021, L100.0100 #### [facility] [address] [place], [address] MCH (RBC) [Entitic mass] 30.9 pg Normal 27.0-32.0 [facility] Comment on above: Performed By: #### L 501.2450, L503.6005, L500.4050, L501.4021, L100.0100 #### [facility] [address] [place], [address] MCHC (RBC) [Mass/Vol] 34.2 g/dL Normal 32-36 [facility] Comment on above: Performed By: #### L 501.2450, L503.6005, L500.4050, L501.4021, L100.0100 #### [facility] [address] [place] [place], [address] MCV (RBC) [Entitic vol] 90.3 fL Normal 80-94 [place] Comment on above: Performed By: #### L 501.2450, L503.6005, L500.4050, L501.4021, L100.0100 #### [facility] [address] [place], [address] Monocytes/100 WBC (Bld) 10.7 % High 0-10 [place] Comment on above: Performed By: #### L 501.2450, L503.6005, L500.4050, L501.4021, L100.0100 #### [facility] [address] [place], [address] Neutrophils/100 WBC (Bld) 56.9 % Normal 47-70 [facility] Comment on above: Performed By: #### L 501.2450, L503.6005, L500.4050, L501.4021, L100.0100 #### [facility] [address] [place], [address] Nucleated RBC (Bld) [#/Vol] 0 10*3/uL Normal 0-5 [facility] Comment on above: Performed By: #### L 501.2450, L503.6005, L500.4050, L501.4021, L100.0100 #### [facility] [address] [place], [address] Platelet mean volume (Bld) [Entitic vol] 10.0 fL Normal 6.2-12.0 [facility] Comment on above: Performed By: #### L 501.2450, L503.6005, L500.4050, L501.4021, L100.0100 #### [facility] [address] [place], [address] Platelets (Bld) [#/Vol] 229 10*3/uL Normal 150-450 [facility] Comment on above: Performed By: #### L 501.2450, L503.6005, L500.4050, L501.4021, L100.0100 #### [facility] [address] [place], [address] RBC (Bld) [#/Vol] 4.86 10*6/uL Normal 4.6-6.2 [facility] Comment on above: Performed By: #### L 501.2450, L503.6005, L500.4050, L501.4021, L100.0100 #### [facility] [address] [place], [address] RDW SD 42.4 fl Normal 35.1-43.9 [facility] Comment on above: Performed By: #### L 501.2450, L503.6005, L500.4050, L501.4021, L100.0100 #### [facility] [address] [place], [place], [address] WBC (Bld) [#/Vol] 7.5 10*3/uL Normal 4.4-11.0 [facility] Comment on above: Performed By: #### L 501.2450, L503.6005, L500.4050, L501.4021, L100.0100 #### [facility] [address] [place], [address] [facility] CNPN Telephone (HEMAWS) VICK ROMAN ([id number]) 1935 M Date Time Provider Department 09/17/24 TOMAS FONTENOT During your visit today, we recorded the following information about you: Tomas Fontenot DO 09/17/2024 1:45 PM Signed His bilirubin was a little elevated on lab work from last week. Please advise him to have another CMP but do so about an hour after eating breakfast or lunch. DO Luis Munoz Brandy 09/17/2024 2:03 PM Signed I called and spoke to Vick and let him know the below information and he stated understanding. Patient stated he will plan to come in tomorrow but is not sure on what time he will come in but will make sure he eats a meal about 1 hour prior to getting his labs drawn. please sign pended order Tomas Solis DO 09/17/2024 2:42 PM Signed Thank you. I added a direct bilirubin and filed both orders. Tomas Fontenot DO Allergies As of Date: 09/17/2024 (No Known Allergies) Date Reviewed: 09/13/2024 Reviewed by: Tomas Fontenot DO - Fully Assessed Reason for Visit: Results [95] Cmt: Elevated bilirubin Primary Visit Diagnosis:Elevated bilirubin [R17] Order(s):COMPREHENSIVE METABOLIC PANEL [SQCMP] Order #: [id number] FUTURE DIRECT BILIRUBIN BLOOD [SQDBIL] Order #: [id number] FUTURE Prescriptions as of 09/17/2024 - atorvastatin (LIPITOR) 80 mg tablet Take 1 tablet by mouth once daily. - aspirin 81 mg cap Take 1 tablet by mouth once daily. Meds Comments as of 05/30/2013: No Rx, routine supplement or otc Problem List As Of Date 09/17/2024 Noted Resolved Lymphoma [C85.90] 10/24/2012 Colon polyp [K63.5] 03/02/2013 Benign neoplasm of colon [D12.6] 04/27/2014 04/27/2014 Abdominal aortic aneurysm (AAA) (HCC) [I71.40] 07/02/2022 Abdominal pain [R10.9] 06/26/2022 07/07/2024 Altered bowel function [R19.8] 11/20/2022 12/25/2022 Essential (primary) hypertension [I10] 11/20/2022 History of colectomy [Z90.49] 11/20/2022 History of colonic polyps [Z86.0100] 11/20/2022 12/25/2022 Skin lesion [L98.9] 11/20/2022 12/25/2022 Tobacco user [Z72.0] 11/20/2022 Prediabetes [R73.03] 06/18/2023 History of lymphoma [Z85.72] 06/30/2023 Encounter Status:Closed by SHAWNA DICKEY on 09/17/24 Normal [facility] CTA Abd/Pelvis W/WO Contrast on 09-17-2024 CTA Abd/Pelvis W/WO Contrast [facility] Imaging Services [facility] [place] [address] CTA Abd/Pelvis W/WO Contrast MR#: [id number] Acct: [id number] Name: VICK ROMAN Rep #: [id number] : 1935 M 89 From: Brayan Nielsen i, MD PCP: Dr. Stanley Kaiser MD Status: REG ER Study: CTA Abd/Pelvis W/WO Contrast Date of Exam: 09/08 Exam# [id number] Ordering Dr: Juan M Mendez DO PROCEDURE: CTA ABD/PELVIS W/WO CONTRAST 09/17/2024 REASON FOR EXAM: ABDOMINAL PAIN, KNOWN AAA TECHNIQUE: CTA imaging of the abdomen and pelvis with intravenous contrast. Multiplanar and multisequence images were obtained. CONTRAST: Isovue 370 VOLUME: 100 mL One or more dose reduction techniques were used (e.g., Automated exposure control, adjustment of the mA and/or kV according to patient size, use of iterative reconstruction technique). RADIATION DOSE SUMMARY: CTDlvol: 8 mGy DLP: 407 mGycm COMPARISON: CT abdomen/pelvis dated 09/14/2024. FINDINGS: Nonvascular: Bronchiectasis and fibrotic changes seen within the lower lung zones, dyjse-vnuodlu-rqtp-lef t. This may suggest chronic lung disease. There is no pleural pericardial effusion. There is no free air within the abdomen and pelvis. Hypodense structures seen within the left hepatic lobe measures up to 8 mm, incompletely characterized but may suggest a cyst. No enhancing masses seen within the liver. The gallbladder, spleen, adrenals, pancreas are grossly within normal limits. The bilateral kidneys are without evidence of hydronephrosis or obstructive uropathy. Urinary bladder is distended. The prostate is borderline prominent measuring up to 5 cm in transverse dimension. Postsurgical changes seen within the rectosigmoid colon. Correlate clinically. There are scattered sigmoid diverticulosis without evidence of acute diverticulitis. There is no bowel obstruction. The appendix is not definitively visualized. No abnormal free fluid is seen within the abdomen and pelvis. Vascular: A large infrarenal abdominal aortic aneurysm is noted measuring up to 6 cm AP x 5.9 cm TV by 8.4 cm craniocaudal. There is a large intramural/noncalcifie d component within the aneurysm. Extensive atheromatous calcification seen within the aorta and its branches. There is no evidence of rupture at this time. The origin of the celiac, SMA and bilateral renal arteries are patent. The ELVIN is not visualized. Extensive atheromatous calcification seen within the bilateral iliofemoral arteries without evidence of narrowing or occlusion. No acute osseous abnormalities identified. CT/CTA Abd/Pelvis W/WO Contrast IMPRESSION: Infrarenal abdominal aortic aneurysm measuring up to 6 cm. This is unchanged when compared to prior examination dated 09/14/2024 when measured by the same observer. Chronic changes seen at the lung bases. Other findings as above. Reading Location: [id number] CC: Dr. Juan M Mendez, DO; Dr. Stanley Kaiser MD Manager Cosmetic: Signed Normal [facility] Carbon dioxide, total [Moles /volume] in Central venous bloodOrdered By: Juan M Mendez on 09-17-2024 CO2 [Moles/Vol] 25.4 mmol/L 21.0-32.0 [facility] Chloride assayOrdered By: Americo Mendez on 09-17-2024 Chloride [Moles/Vol] 103 mmol/L 98-108 [facility] Comprehensive Metabolic Prof ilon 09-17-2024 Albumin [Mass/Vol] 4.2 g/dL Normal 3.4-4.8 [facility] Comment on above: Performed By: #### L 501.2450, L503.6005, L500.4050, L501.4021, L100.0100 ####[facility] [address] [place], [address] Albumin/Globulin [Mass ratio] 1.4 {ratio} Normal 0.9-2.4 [facility] Comment on above: Performed By: #### L 501.2450, L503.6005, L500.4050, L501.4021, L100.0100 ####[facility] [address] [place], [address] ALK PHOS 95 U/L Normal 40-129 [facility] Comment on above: Performed By: #### L 501.2450, L503.6005, L500.4050, L501.4021, L100.0100 ####[facility] [address] [place], [address] ALT [Catalytic activity/Vol] 23 U/L Normal <=46 [facility] Comment on above: Performed By: #### L 501.2450, L503.6005, L500.4050, L501.4021, L100.0100 ####[facility] [address] [place], [address] AST [Catalytic activity/Vol] 27 U/L Normal <=37 [facility] Comment on above: Performed By: #### L 501.2450, L503.6005, L500.4050, L501.4021, L100.0100 ####[facility] [address] [place], [address] Bilirubin [Mass/Vol] 0.88 mg/dL Normal 0.00-1.30 [facility] Comment on above: Performed By: #### L 501.2450, L503.6005, L500.4050, L501.4021, L100.0100 ####[facility] [address] [place], [address] BUN/CRE 18.6 RATIO Normal 10-20 [facility] Comment on above: Performed By: #### L 501.2450, L503.6005, L500.4050, L501.4021, L100.0100 ####[facility] [address] [place], [address] Calcium [Mass/Vol] 9.5 mg/dL Normal 7.6-11.0 [facility] Comment on above: Performed By: #### L 501.2450, L503.6005, L500.4050, L501.4021, L100.0100 ####[facility] [address] [place], [address] Chloride [Moles/Vol] 103 mmol/L Normal 98-108 [facility] Comment on above: Performed By: #### L 501.2450, L503.6005, L500.4050, L501.4021, L100.0100 ####[facility] [address] [place], [address] CO2 [Moles/Vol] 25.4 mmol/L Normal 21.0-32.0 [facility] Comment on above: Performed By: #### L 501.2450, L503.6005, L500.4050, L501.4021, L100.0100 ####[facility] [address] [place], [address] Creatinine [Mass/Vol] 0.99 mg/dL Normal 0.70-1.20 [facility] Comment on above: Performed By: #### L 501.2450, L503.6005, L500.4050, L501.4021, L100.0100 ####[facility] [address] [place], [address] ECRCL 42.46 ml/min Low 50-250 [facility] Comment on above: Performed By: #### L 501.2450, L503.6005, L500.4050, L501.4021, L100.0100 ####[facility] [address] [place], [address] GAP 10 Normal 5-15 [facility] Comment on above: Performed By: #### L 501.2450, L503.6005, L500.4050, L501.4021, L100.0100 ####[facility] [address] [place], [address] GFR/1.73 sq M.predicted among non-blacks MDRD (S/P/Bld) [Vol rate/Area] 73 mL/min/{1.73_m2} Normal >60 [facility] Comment on above: Result Comment: mL/m in/1.73m2 CKD-EPI Creatinine Equation (2020) Performed By: #### L 501.2450, L503.6005, L500.4050, L501.4021, L100.0100 ####[facility] [address] [place], [address] Globulin (S) [Mass/Vol] 3.1 g/dL Normal 2.2-4.2 [place] Comment on above: Performed By: #### L 501.2450, L503.6005, L500.4050, L501.4021, L100.0100 ####[facility] [address] [place], [address] Glucose [Mass/Vol] 96 mg/dL Normal 70-99 [facility] Comment on above: Performed By: #### L 501.2450, L503.6005, L500.4050, L501.4021, L100.0100 ####[facility] [address] [place], [address] Potassium [Moles/Vol] 3.9 mmol/L Normal 3.3-5.1 [facility] Comment on above: Performed By: #### L 501.2450, L503.6005, L500.4050, L501.4021, L100.0100 ####[facility] [address] [place], [address] Sodium [Moles/Vol] 139 mmol/L Normal 133-145 [facility] Comment on above: Performed By: #### L 501.2450, L503.6005, L500.4050, L501.4021, L100.0100 ####[facility] [address] [place], [address] T PROT 7.3 g/dL Normal 5.9-8.4 [facility] Comment on above: Performed By: #### L 501.2450, L503.6005, L500.4050, L501.4021, L100.0100 ####[facility] [address] [place], [address] Urea nitrogen [Mass/Vol] 19 mg/dL Normal 4-19 [facility] Comment on above: Performed By: #### L 501.2450, L503.6005, L500.4050, L501.4021, L100.0100 ####[facility] [address] [place], [address] Emergency Department Summary on 09-17-[address] [facility] Medical Records Department [address] [place] [address] Emergency Department Summary 09/17/24 MR#: [id number] Acct: [id number] Name: VICK ROMAN Rep #: [id number] : 1935 89 From: Juan M Mendez DO PCP: Dr. Stanley Kaiser MD Status:REG ER Location: ED ADDENDUM by Dr. Wilfredo Talbot DO on 09/17/24 at 0758 Patient was turned over to me by Dr. Mendez @0700 Brief history: 89-year-old male here with abdominal pain history of AAA. Patient denies syncope, flank or back pain. Denies current abdominal pain. Physical exam: No pulsatile abdominal masses, nonsedated bruits, no objective tenderness. Labs and images reviewed (if obtained): CBC without leukocytosis, severe anemia, no thrombocytopenia. CMP without evidence of acute kidney injury, significant electrolyte abnormality, anion gap to suggest end organ hypo-perfusion, no evidence of metabolic acidosis with a normal bicarbonate, no evidence of hepatobiliary obstructive pathology. Lipase is wnl indicating no pancreatic inflammation. Urinalysis shows no evidence of urinary inflammation suggestive of UTI Lactate is wnl indicating no end-organ hypoperfusion and/or hypoxia. CT of the abdomen pelvis shows stable 5.9 cm aneurysm with no sign of rupture. Consults: Discussed with Dr. Ortiz (vascular surgery) reviewed the patient's labs images and noted if the patient is pain-free, blood pressure is controlled he is safe for discharge home with close follow-up with him for outpatient management. Recommended against transfer or emergent surgery at this time. Prior vascular surgery evaluation reviewed: -CT and CTA images reviewed, 5.35 cm AAA -discussed indications/size threshold for treatment; in men can argue either way when 5-5.5 cm -his abdominal symptoms that prompted initial evaluation not related to AAA, and chronic back pain is stable and not caused by AAA -he would prefer to remain conservative, follow with serial imaging -discussed symptoms of rupture (sudden pain/diaphoresis/synco pe) as well as that gradual increased back/flank pain (without N/V/diarrhea) can indicate growth without rupture -will repeat CTA in 6 months, if growth to >5.5 will repair -if he changes his mind or develops symptoms concerning for symptomatic aneurysm would offer repair MDM/plan: Given stable appearance, pain-free, reassuring exam, reassuring images, reassuring consultation. The patient appropriate discharge home. Gave strict return precautions and follow-up instructions. Patient noted had appoint with Dr. Saldana tomorrow morning at 2:30 PM. Disposition: Discharge home 09/17/24 0915 Cosigner Signature (if applicable): cc: Dr. Stanley Kaiser MD * Signed HPI History of Present Illness Chief Complaint: Abd Pain Narrative Narrative: Chief complaint and HPI: Abdominal pain. History taken by patient as well as medical record. 89-year-old gentleman with history of tobacco abuse and known AAA presents for evaluation of abdominal pain. Abdominal pain started approximately 4 AM and woke him up from sleep. He states the pain started to improve on arrival here to the emergency department and has resolved. He states Dr. Ortiz told him to present to the emergency department if he ever develops abdominal pain. He denies any fever, chills, shortness of breath, chest pain, nausea, vomiting, diarrhea, constipation, dysuria. Review of systems: See HPI Medications: As listed on the chart Allergies: As listed on the chart PFSH: Per chart Vital signs: As listed on the chart. Reviewed. Physical exam: Gen: A O x3, NAD Head: Normocephalic, atraumatic Eyes: No sclera icterus, conjunctiva clear ENT: Moist mucous membranes Neck: Trachea midline, No JVD CV: RRR, no murmurs, no peripheral edema Resp: Lungs CTA BL, no w/r/c GI: Abd soft, non-distended, non-tender, no r/r/g, no pulsatile mass appreciated : No CVA tenderness Musc: Full ROM, no deformity, DP/PT pulses +2 bilaterally Skin: Warm, dry Neuro: Alert, oriented, grossly intact, sensation intact Psych: Cooperative, appropriate mood and affect [facility] Medical History Change in bowel habits History of colon polyps Non-Hodgkin lymphoma Skin lesion Home Medications ???Medication ???Instructions ???Recorded ???Last Taken ???Type atorvastatin 80 mg tablet 80 mg PO DAILY #30 tabs 06/17/22 U nknown Rx Allergy/AdvReac Type Severity Reaction Status Date / Time No Known Allergies Allergy Verified 09/17/24 06:11 Family History Brother Heart disease Surgical History History of colectomy S/P colonoscopy Status post excisional biopsy Social History (Reviewe (more content not included)... Normal [facility] Eosinophil percentageOrdered By: Juan M Mendez on 09-17-2024 Eosinophils/100 WBC (Bld) 3.3 % 0-5 [facility] Epithelial cells.squamous LM Ql (Urine sed)Ordered By: Juan M Mendez on 09-17-2024 Epithelial cells.squamous LM.HPF (Urine sed) [#/Area] 0 /[HPF] 0-5 [facility] Erythrocyte distribution wid th (RBC) [Ratio]Ordered By: Meridian Andrea on 09-17-2024 Erythrocyte distribution width (RBC) [Entitic vol] 42.4 fL 35.1-43.9 [facility] Erythrocyte distribution wid th ratioOrdered By: [facility]to[facility] on 09-17-2024 Erythrocyte distribution width (RBC) [Ratio] 12.8 % 11.6-14.6 [facility] Erythrocyte distribution wid th standard deviationOrdered By: [facility] on 09-17-2024 Erythrocyte distribution width (RBC) [Ratio] 42.4 fl 35.1-43.9 [facility] Estimation of creatinine michaela aranceOrdered By: Juan M Mendez on 09-17-2024 Estimated Creatinine Clearance Calc 42.46 ml/min Low 50-250 [facility] GFR/1.73 sq M.predicted petra g non-blacks MDRD (S/P/Bld) [Vol rate/Area]Ordered By: Juan M Mendez on 09-17-2024 Estimated GFR (MDRD) Non-Af Amer 73 >60 [facility] Comment on above: mL/min/1.73m2 CKD-EP I Creatinine Equation (2020) Glomerular filtration rate ( GFR) estimation/1.73 sq m using serum, plasma, or whole bOrdered By: Juan M Mendez on 09-17-2024 GFR/1.73 sq M.predicted among non-blacks MDRD (S/P/Bld) [Vol rate/Area] 73 mL/min/{1.73_m2} >60 [facility] Comment on above: mL/min/1.73m2 CKD-EP I Creatinine Equation (2020) Glucose Ql (U)Ordered By: Americo Mendez on 09-17-2024 Urine Glucose (UA) Normal mg/dl Normal [facility] Hematocrit Auto (Bld) [Volum e fraction]Ordered By: Juan M Andrea on 09-17-2024 Hematocrit (Bld) [Volume fraction] 43.9 % 40-54 [facility] Hemoglobin measurementOrdere d By: Juan M Mendez on 09-17-2024 Hemoglobin (Bld) [Mass/Vol] 15.0 g/dL 13.0-16.5 [facility] Immature granulocytes/100 WB C Auto (Bld)Ordered By: Juan M Mendez on 09-17-2024 Immature granulocytes/100 WBC (Bld) 0.400 % 0.0-0.9 [facility] Comment on above: IG% - Immature Granu locytes (promyelocytes, myelocytes and metamyelocytes) > 1% indicates that a LEFT SHIFT is Present. Ketones Test strip Ql (U)Ord ered By: Juan M Mendez on 09-17-2024 Ketones Ql (U) Negative Negative [facility] L501.4021on 09-17-2024 Trop T High Sen 13 ng/L Normal <=22 [facility] Comment on above: Performed By: #### L 501.2450, L503.6005, L500.4050, L501.4021, L100.0100 ####[facility] [address] [place], [place], [address] Laboratory - Chemistry and C hemistry - challengeOrdered By: Juan M Mendez on 09-17-2024 AST [Catalytic activity/Vol] 27 U/L <38 [facility] Lactic Acidon 09-17-2024 Lactate [Moles/Vol] 1.5 mmol/L Normal 0.0-2.0 [facility] Comment on above: Order Comment: Y Performed By: #### L 501.2450, L503.6005, L500.4050, L501.4021, L100.0100 ####[facility] [address] [place], [address] Lactic acid measurementOrder ed By: Juan M Mendez on 09-17-2024 Lactate [Moles/Vol] 1.5 mmol/L 0.0-2.0 [facility] Lipaseon 09-17-2024 Lipase [Catalytic activity/Vol] 27 U/L Normal 13-75 [facility] Comment on above: Result Comment: Franci mills note: LIPASE revised reference range effective 22. New Lipase methodology. Expected to produce lower values than the previous assay method. NEW Reference Range: 13 - 75 U/L Performed By: #### L 501.2450, L503.6005, L500.4050, L501.4021, L100.0100 ####[facility] [address] [place], [place], [address] Lipase measurementOrdered By : Juan M Mendez on 09-17-2024 Lipase [Catalytic activity/Vol] 27 U/L 13-75 [facility] Comment on above: Please note:LIPASE r evised reference range effective 22. New Lipase methodology. Expected to produce lower values than the previous assay method. NEW Reference Range: 13 - 75 U/L Lymphocytes Auto (Unsp spec) [#/Vol]Ordered By: Juan M Mendez on 09-17-2024 Lymphocytes (Bld) [#/Vol] 2.08 10*3/uL 0.83-4.51 [facility] Lymphocytes/100 WBC Auto (Un sp spec)Ordered By: Juan M Mendez on 09-17-2024 Lymphocytes/100 WBC (Bld) 27.6 % 19-41 [facility] MCV (mean corpuscular volume ) determinationOrdered By: Juan M Mendez on 09-17-2024 MCV (RBC) [Entitic vol] 90.3 fL 80-94 [facility] Mean corpuscular hemoglobin (MCH) determinationOrdered By: Juan M Mendez on 09-17-2024 MCH (RBC) [Entitic mass] 30.9 pg 27.0-32.0 [facility] Mean corpuscular hemoglobin concentration (MCHC) determinationOrdered By: Juan M Mendez on 09-17-2024 MCHC (RBC) [Mass/Vol] 34.2 g/dL 32-36 [facility] Mean platelet volume determi nationOrdered By: Juan M Mendez on 09-17-2024 Platelet mean volume (Bld) [Entitic vol] 10.0 fL 6.2-12.0 [facility] Microscopic analysis of urin e for red blood cells (RBC)Ordered By: Juan M Mendez on 09-17-2024 Microscopic analysis of urine for red blood cells (RBC) 0 SEEN /hpf 0-5 [facility] Urine RBC 0 SEEN /hpf 0-5 [facility] Monocyte percentageOrdered B y: Juan M Mendez on 09-17-2024 Monocytes/100 WBC (Bld) 10.7 % High 0-10 [facility] Mucus LM Ql (Urine sed)Order ed By: Juan M Mendez on 09-17-2024 Mucus Ql (Urine sed) 0 SEEN /hpf [facility] Neutrophil percentageOrdered By: Juan M Mendez on 09-17-2024 Neutrophils/100 WBC (Bld) 56.9 % 47-70 [facility] Nitrite Test strip Ql (U)Ord ered By: Juan M Mendez on 09-17-2024 Nitrite Ql (U) Negative Negative [facility] Nucleated red blood cell per centageOrdered By: Juan M Mendez on 09-17-2024 Nucleated RBC/100 WBC (Bld) [Ratio] 0 % 0-5 [facility] Platelet countOrdered By: Americo Mendez on 09-17-2024 Platelets (Bld) [#/Vol] 229 10*3/uL 150-450 [facility] Potassium (Unsp spec) [Mass/ Vol]Ordered By: Juan M Mendez on 09-17-2024 Potassium [Moles/Vol] 3.9 mmol/L 3.3-5.1 [facility] Potassium measurement (mass/ volume)Ordered By: Juan M Mendez on 09-17-2024 Potassium (Unsp spec) [Mass/Vol] 3.9 mmol/L 3.3-5.1 [facility] Protein Test strip Ql (U)Ord ered By: Juan M Mendez on 09-17-2024 Protein Ql (U) Negative Negative [facility] RBC Auto (Bld) [#/Vol]Ordere d By: Juan M Mendez on 09-17-2024 RBC (Bld) [#/Vol] 4.86 10*6/uL 4.6-6.2 [facility] Serum creatinine measurement (mass/volume)Ordered By: Juan M Mendez on 09-17-2024 Creatinine [Mass/Vol] 0.99 mg/dL 0.70-1.20 [facility] Serum globulin measurementOr dered By: Juan M Mendez on 09-17-2024 Globulin (S) [Mass/Vol] 3.1 g/dL 2.2-4.2 [facility] Serum glucose measurement (m ass/volume)Ordered By: Juan M Mendez on 09-17-2024 Glucose [Mass/Vol] 96 mg/dL 70-99 [facility] Serum or plasma alanine randall otransferase (ALT) measurementOrdered By: Juan M Mendez on 09-17-2024 ALT [Catalytic activity/Vol] 23 U/L <47 [facility] Serum or plasma albumin yasmeen urement (mass/volume)Ordered By: Jaun M Avelar on 09-17-2024 Albumin [Mass/Vol] 4.2 g/dL 3.4-4.8 [facility] Serum or plasma albumin/glob ulin mass ratioOrdered By: Juan M Mendez on 09-17-2024 Albumin/Globulin [Mass ratio] 1.4 {ratio} 0.9-2.4 [facility] Serum or plasma alkaline zak sphatase measurementOrdered By: Juan M Mendez on 09-17-2024 ALP [Catalytic activity/Vol] 95 U/L 40-129 [facility] Serum or plasma calcium yasmeen urement (mass/volume)Ordered By: Juan M Avelar on 09-17-2024 Calcium [Mass/Vol] 9.5 mg/dL 7.6-11.0 [facility] Serum or plasma urea nitroge n measurement (mass/volume)Ordered By: Juan M Mendez on 09-17-2024 Urea nitrogen [Mass/Vol] 19 mg/dL 4-19 [facility] Sodium levelOrdered By: Huey Mendez on 09-17-2024 Sodium [Moles/Vol] 139 mmol/L 133-145 [facility] Squamous epithelial cells de tection in urine sediment by light microscopyOrdered By: Juan M Mendez on 09-17-2024 Epithelial cells.squamous LM Ql (Urine sed) 0 SEEN /hpf 0-5 [facility] Total proteinOrdered By: Raymond Mendez on 09-17-2024 Protein [Mass/Vol] 7.3 g/dL 5.9-8.4 [facility] Troponin T.cardiac High sens itivity method [Mass/Vol]Ordered By: Juan M Avelar on 09-17-2024 Troponin T High Sensitivity 13 ng/L <22 [facility] Troponin T.cardiac [Mass/vol ume] in Serum or Plasma by High sensitivity methodOrdered By: Juan M Mendez on 09-17-2024 Troponin T.cardiac High sensitivity method [Mass/Vol] 13 ng/L <22 [facility] Urinalysis, Completeon 09-17 BACTERIA 0 SEEN Normal None Seen [facility] Comment on above: Order Comment: CLEAN CATCH Performed By: #### L 400.0001 ####[facility] [address] [place], [address] EPI,SQUAMOUS 0 SEEN Normal 0-5 [facility] Comment on above: Order Comment: CLEAN CATCH Performed By: #### L 400.0001 ####[facility] [address] [place], [address] Mucus Ql (Urine sed) 0 SEEN Normal [facility] Comment on above: Order Comment: CLEAN CATCH Performed By: #### L 400.0001 ####[facility] [address] [place], [address] RBC 0 SEEN Normal 0-[address] [place] [address] Comment on above: Order Comment: CLEAN CATCH Performed By: #### L 400.0001 ####[facility] [facility] [address] [place], [address] WBC 0 SEEN Normal [address] [place] [address] Comment on above: Order Comment: CLEAN CATCH Performed By: #### L 400.0001 ####[facility] [address] [place], [address] Urine blood detectionOrdered By: Juan M Mendez on 09-17-2024 Urine Occult Blood Negative Negative [facility] Urine clarityOrdered By: Raymond Mendez on 09-17-2024 Clarity (U) Clear Clear [facility] Urine color determinationOrd ered By: Juan M Mendez on 09-17-2024 Color (U) Yellow Yellow [facility] Urine glucose detectionOrder ed By: Juan M Mendez on 09-17-2024 Glucose Ql (U) Normal mg/dl Normal [facility] Urine leukocyte esterase det ection by dipstickOrdered By: Juan M Mendez on 09-17-2024 Leukocyte esterase Test strip Ql (U) Negative Negative [facility] Urine pHOrdered By: Juan M Capellan on 09-17-2024 pH (U) 7.0 [pH] 5.0 - 8.0 [facility] Urine sediment bacteria coun t by microscopy (number/high power field)Ordered By: Juan M Mendez on 09-17-2024 Bacteria LM.HPF (Urine sed) [#/Area] 0 /[HPF] None Seen [facility] Urine specific gravity measu rementOrdered By: Juan M Marilia on 09-17-2024 Specific gravity (U) [Rel density] 1.010 1.002-1.030 [facility] Urine urobilinogen measureme ntOrdered By: Juan M Mendez on 09-17-2024 Urobilinogen Ql (U) Normal mg/dl Normal [facility] Urobilinogen Ql (U)Ordered B y: Juan M Mendez on 09-17-2024 Urine Urobilinogen Normal mg/dl Normal [facility] White blood cell (WBC) count Ordered By: Juan M Mendez on 09-17-2024 WBC (Bld) [#/Vol] 7.5 10*3/uL 4.4-11.0 [facility] White blood cell countOrdere d By: Juan M Mendez on 09-17-2024 Urine WBC 0 SEEN /hpf 0-5 [facility] White blood cell count 0 SEEN /hpf 0-5 W [facility] CTA Abd/Pelvis W/WO Contrast on 09-14-2024 CTA Abd/Pelvis W/WO Contrast [facility] Imaging Services [address] [place] [id number] CTA Abd/Pelvis W/WO Contrast MR#: [id number] Acct: [id number] Name: VICK ROMAN Rep #: [id number] : 1935 M 89 From: Sacha Manley MD PCP: Dr. Stanley Kaiser MD Status: REG CLI Study: CTA Abd/Pelvis W/WO Contrast Date of Exam: 06/10 Exam# [id number] Ordering Dr: Anna Marshall PROCEDURE: CTA ABD/PELVIS W/ CONTRAST, 09/14/2024 REASON FOR EXAM: AAA TECHNIQUE: CTA abdomen and pelvis was performed with IV contrast. Multiplanar reformats and a rotating MIP reconstruction were generated. IV CONTRAST: Isovue 370 VOLUME: 100ML RADIATION DOSE SUMMARY: CTDlvol: 42.74+ 7.98 mGy DLP: 405.95 mGycm One or more dose reduction techniques were used (e.g., Automated exposure control, adjustment of the mA and/or kV according to patient size, use of iterative reconstruction technique). COMPARISON: 12/08/2022 FINDINGS: Note the exam was optimized for evaluation of the arterial vasculature rather than venous structures, soft tissues, and remaining abdominopelvic viscera. Abdominal aorta: Severe diffuse atherosclerosis with tortuosity. Abdominal aortic aneurysm with considerable mural thrombus and/or soft atherosclerotic plaque has enlarged slightly, now measuring 5.9 x 5.8 cm, previously 5.0 x 5.0 cm. Questionable trace stranding posteriorly. No abnormal non-rounded morphology. Celiac: Replaced LEFT hepatic artery arising from the LEFT gastric artery, normal variant. SMA: Patent. RIGHT Renal artery: Patent main renal artery. Two RIGHT renal arteries arising from the aorta in the region of the inferior aspect of the above described abdominal aortic aneurysm were previously patent are now barely visible, uncertain if currently patent, limited evaluation due to minute size, however occlusion of at least 1 of the 2 accessory renal arteries is suspected given findings suspicious for a RIGHT lower pole renal infarct as below. LEFT Renal artery: Unremarkable. ELVIN: Not well seen as before, possibly occluded. Common iliacs: Severe atherosclerosis. Mild focal stenosis along the proximal and mid RIGHT common iliac artery.. External iliacs: Moderate atherosclerosis. Mild/moderate focal stenosis at the origin of the LEFT external iliac artery. Internal iliacs: Moderate atherosclerosis. Mild focal stenosis proximally on the LEFT. 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 Other vascular: Femoral atherosclerosis without high-grade stenosis within the xacfq-qb-vsus.. Other nonvascular: Nodules in the LEFT lung base up to 18 mm were not present on previous scheduling administrator images, possibly calcified however this is not definite. Airspace disease in the RIGHT lung base with endobronchial debris. At least trace to mild aortic annular calcification. Slightly enlarged RIGHT atrium and ventricle suggested, partially imaged. Coronary atherosclerosis. Tiny hepatic hypodensity too small to characterize, but similar to 06/13/2022, likely cyst or hemangioma.. New hypoenhancement of the RIGHT renal lower pole consistent with an infarct as above. Mass-effect on bowel loops by the abdominal aortic aneurysm. Rectal anastomosis. Diverticulosis. 2.5 x 1.7 cm nonspecific nodular lesion along the posterior aspect of the cecum/ascending colon previously measured 2.3 x 1.9 cm on 06/13/2022. Appendix is not identified in this area. Prostatomegaly. Partially imaged at least moderate LEFT hydrocele with high-density layering components, nonspecific, not well evaluated by CT. Demineralization. Mild spondylosis. Lumbar levoscoliosis. CT/CTA Abd/Pelvis W/WO Contrast IMPRESSION: 1. Severe atherosclerosis with enlarged now 5.9 cm abdominal aortic aneurysm. Questionable trace stranding posteriorly is nonspecific but could conceivably be seen in the setting of impending rupture. No abnormal morphology to confirm this. If the patient is symptomatic, recommend referral to the ED. Regardless, recommend prompt referral to vascular surgery or IR for definitive management as aneurysms of this size are at increased risk for rupture. 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 2. Airspace disease in the RIGHT lung base with endobronchial debris. Findings suggest aspiration with possible mild pneumonia/pneumonitis. 3. 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 On correlation with previous CTA, this is probably related to occlusion at least 1 of 2 accessory RIGHT renal arteries which were much better seen previously, now barely perceptible and of uncertain patency. 4. Nodules in the LEFT lung base up to 18 mm were not present on previous scheduling administrator images, possibly calcified however this is not definite. Recommend CT chest. 5. 2.5 x 1.7 cm nonspecific nodular lesion katlyn (more content not included)... Normal [facility] CBC W Auto Differential pane l (Bld)on 09-13-2024 Basophils (Bld) [#/Vol] 0.07 10*3/uL Normal <0.11 [facility] Comment on above: Order Comment: Speci men Type: BLOOD SPECIMENOrdering Facility: [facility] Address: [address] [place] [address] Performed By: #### 5 7021-8 ####[facility]ITALWMNLIA [id number] [place] [address] [place] Basophils/100 WBC (Bld) 0.9 % Normal [facility] Comment on above: Order Comment: Speci men Type: BLOOD SPECIMENOrdering Facility: [facility] Address: [address] [place] [address] Performed By: #### 5 7021-8 ####[facility] RIVERSIDEA [id number] [place] [address] [place] Differential cell count method Nom (Bld) Auto Normal [facility] Comment on above: Order Comment: Speci men Type: BLOOD SPECIMENOrdering Facility: [facility] Address: [address] [place] [address] Performed By: #### 5 7021-8 ####[facility] RIVERSIDEA [id number] [place] [address] [place] Eosinophils (Bld) [#/Vol] 0.13 10*3/uL Normal <0.46 [facility] Comment on above: Order Comment: Speci men Type: BLOOD SPECIMENOrdering Facility: [facility] Address: [address] [place] [address] Performed By: #### 5 7021-8 ####[facility] RIV[facility]IDEA [id number] [place] [address] [place] Eosinophils/100 WBC (Bld) 1.6 % Normal [facility] Comment on above: Order Comment: Speci men Type: BLOOD SPECIMENOrdering Facility: [facility] Address: [address] [place] [address] Performed By: #### 5 7021-8 ####[facility] DONNAHARVINDER [id number] [place] [address] [place] Erythrocyte distribution width (RBC) [Ratio] 12.8 % Normal 11.5-15.0 [facility] Comment on above: Order Comment: Speci men Type: BLOOD SPECIMENOrdering Facility: [facility] Address: [address] [place] [address] Performed By: #### 5 7021-8 ####[facility] ERADAMCody [id number] [place] [address] [place] Hematocrit (Bld) [Volume fraction] 44.7 % Normal 39.0-51.0 [facility] Comment on above: Order Comment: Speci men Type: BLOOD SPECIMENOrdering Facility: [facility] Address: [address] [place] [address] Performed By: #### 5 7021-8 ####[facility] [id number] [place] [address] [place] Hemoglobin (Bld) [Mass/Vol] 15.3 g/dL Normal 13.0-17.0 [facility] Comment on above: Order Comment: Speci men Type: BLOOD SPECIMENOrdering Facility: [facility] Address: [address] [place] [address] Performed By: #### 5 7021-8 ####[facility] [id number] [place] [address] [place] Immature granulocytes (Bld) [#/Vol] 10*3/uL Normal <0.10 [facility] Comment on above: Order Comment: Speci men Type: BLOOD SPECIMENOrdering Facility: [facility] Address: [address] [place] [address] Performed By: #### 5 7021-8 ####[facility] DONNAROWESVILLENCLIA [id number] [place] [address] [place] Immature granulocytes/100 WBC (Bld) 0.3 % Normal [facility] Comment on above: Order Comment: Speci men Type: BLOOD SPECIMENOrdering Facility: [facility] Address: [address] [place] [address] Performed By: #### 5 7021-8 ####[facility] [id number] [place] [address] [place] Lymphocytes (Bld) [#/Vol] 2.21 10*3/uL Normal 1.00-4.00 [facility] Comment on above: Order Comment: Speci men Type: BLOOD SPECIMENOrdering Facility: [facility] Address: [address] [place] [address] Performed By: #### 5 7021-8 ####[facility] [id number] [place] [address] [place] Lymphocytes/100 WBC (Bld) 27.7 % Normal [facility] Comment on above: Order Comment: Speci men Type: BLOOD SPECIMENOrdering Facility: [facility] Address: [address] [place] [address] Performed By: #### 5 7021-8 ####[facility] ERNCA [id number] [place] [address] [place] MCH (RBC) [Entitic mass] 30.8 pg Normal 26.0-34.0 [facility] Comment on above: Order Comment: Speci men Type: BLOOD SPECIMENOrdering Facility: [facility] Address: [address] [place] [address] Performed By: #### 5 7021-8 ####[facility] ERNCLIA [id number] [place] [address] [place] MCHC (RBC) [Mass/Vol] 34.2 g/dL Normal 30.5-36.0 [facility] Comment on above: Order Comment: Speci men Type: BLOOD SPECIMENOrdering Facility: [facility] Address: [address] [place] [address] Performed By: #### 5 7021-8 ####[facility] ERNCSAN [facility] [id number] [place] [address] [place] MCV (RBC) [Entitic vol] 90.1 fL Normal 80.0-100.0 [facility] Comment on above: Order Comment: Speci men Type: BLOOD SPECIMENOrdering Facility: [facility] Address: [address] [place] [address] Performed By: #### 5 7021-8 ####[facility]NCS[facility] [id number] [place] [address] [place] Monocytes (Bld) [#/Vol] 0.83 10*3/uL Normal <0.87 [facility] Comment on above: Order Comment: Speci men Type: BLOOD SPECIMENOrdering Facility: [facility] Address: [address] [place] [address] Performed By: #### 5 7021-8 ####[facility] [id number] [place] [address] [place] Monocytes/100 WBC (Bld) 10.4 % Normal [facility] Comment on above: Order Comment: Speci men Type: BLOOD SPECIMENOrdering Facility: [facility] Address: [address] [place] [address] Performed By: #### 5 7021-8 ####[facility] [id number] [place] [address] [place] Neutrophils (Bld) [#/Vol] 4.72 10*3/uL Normal 1.45-7.50 [facility] Comment on above: Order Comment: Speci men Type: BLOOD SPECIMENOrdering Facility: [facility] Address: [address] [place] [address] Performed By: #### 5 7021-8 ####[facility] DONNAGINOA [id number] [place] [address] [place] Neutrophils/100 WBC (Bld) 59.1 % Normal [facility] Comment on above: Order Comment: Speci men Type: BLOOD SPECIMENOrdering Facility: [facility] Address: [address] [place] [address] Performed By: #### 5 7021-8 ####[facility] [id number] [place] [address] [place] Nucleated RBC (Bld) [#/Vol] 10*3/uL Normal <0.01 [facility] Comment on above: Order Comment: Speci men Type: BLOOD SPECIMENOrdering Facility: [facility] Address: [address] [place] [address] Performed By: #### 5 7021-8 ####[facility] RIVERSIDEA [id number] [place] [address] [place] Nucleated RBC/100 WBC (Bld) [Ratio] 0.0 /100 WBC Normal [facility] Comment on above: Order Comment: Speci men Type: BLOOD SPECIMENOrdering Facility: [facility] Address: [address] [place] [address] Performed By: #### 5 7021-8 ####[facility] DONNAMEDICAL BEHAVIORAL HOSPITALLIA [id number] [place] [address] [place] Platelet mean volume (Bld) [Entitic vol] 10.1 fL Normal 9.0-12.7 [facility] Comment on above: Order Comment: Speci men Type: BLOOD SPECIMENOrdering Facility: [facility] Address: [address] [place] [address] Performed By: #### 5 7021-8 ####[facility]ITALWNCLIA [id number] [place] [address] [place] Platelets (Bld) [#/Vol] 229 10*3/uL Normal 150-400 [facility] Comment on above: Order Comment: Speci men Type: BLOOD SPECIMENOrdering Facility: [facility] Address: [address] [place] [address] Performed By: #### 5 7021-8 ####[facility] ERNCLIA [id number] [place] [address] [place] RBC (Bld) [#/Vol] 4.96 10*6/uL Normal 4.20-6.00 [facility] Comment on above: Order Comment: Speci men Type: BLOOD SPECIMENOrdering Facility: [facility] Address: [address] [place] [address] Performed By: #### 5 7021-8 ####[facility] ERNCLIA [id number] [place] [address] [place] WBC (Bld) [#/Vol] 7.98 10*3/uL Normal 3.70-11.00 [facility] Comment on above: Order Comment: Speci men Type: BLOOD SPECIMENOrdering Facility: [facility] Address: [address] [place] [address] Performed By: #### 5 7021-8 ####[facility] ERNCLIA [id number] [place] [address] [place] CNOVSPon 09-13-2024 CNOVSP Visit (SP) Office (HEMAWS) VICK ROMAN ([id number]) 1935 M Date Time Provider Department 09/13/24 10:30 AM TOMAS FONTENOT HEMAWS During your visit today, we recorded the following information about you: Temperature Pulse Blood pressure Weight 98 degrees 66/minute 167/99 59 kg Po Tomas Ross DO 09/13/2024 11:43 AM Signed 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 HPI: The patient is an 89-year-old male with a past medical history as outlined below. Diagnosed with lymphoma in 1992 when presented with left groin adenopathy. Received radiation. Recurred 2000 with right groin adenopathy. He didn't seek medical attention right away and when did required chemotherapy (R-CHOP x6) followed by radiation. Last seen here for follow up 05/06/2004 prior to recent recurrence. 5-6 weeks prior to presentation, noticed a hard lump posterior left cervical area. CT Neck 06/18/2023: Irregular hyperattenuating, likely enhancing soft tissue with infiltrative margins deep to the LEFT sternocleidomastoid muscle, posterior to the LEFT digastric muscle, and anterior to the LEFT trapezius muscle with possible intramuscular component along the deep surface of the sternocleidomastoid muscle measuring approximately 4.5 x 1.9 x 5.1 cm (transaxial long axis by short axis by CC oblique; 5:62 and 7:91). 1.1 x 1.1 cm well-circumscribed lesion within the skin and subcutaneous tissue of the RIGHT posterior neck, likely an epidermoid inclusion cyst (5:62). Suprahyoid Neck: Nasopharynx and oropharynx appear grossly normal. Parapharyngeal tissue planes are preserved. Oral cavity and floor of mouth appear normal within constraints of artifact from dental amalgam. Lumber Tallier spaces appear normal. Infrahyoid Neck: Hypopharynx, larynx, and imaged infraglottic trachea appear grossly normal. Imaged upper esophagus is unremarkable. Lymph nodes: No cervical lymphadenopathy by size, number or morphologic criteria. Small nonspecific lymph nodes are scattered throughout the neck. Major salivary glands: Parotid and submandibular spaces are unremarkable. Thyroid gland: Thyroid gland is homogeneous without evidence of discrete nodule. Carotid space: Patent bilateral extracranial carotid and jugular systems. Severe narrowing of the LEFT internal jugular vein beginning in the LEFT infratemporal fossa. The stylomastoid foramen. Intracranial contents: No abnormal intracranial enhancement, mass effect, or hydrocephalus. Remote LEFT caudate head infarct. Orbits, Face and Skull Base: Focal radiopacity along the LEFT medial canthus. Postoperative changes in the bilateral globes. Orbital soft tissue planes are otherwise preserved. Paranasal sinuses are clear. Mastoid air cells and middle ear cavities are clear. No evidence of an osteolytic or osteoblastic process in the skull base. Bones: Diffuse osteopenia, likely age related. No suspicious osseous lesions in the imaged calvarium, skull base and spine. Normal cervicothoracic alignment. Multilevel mild spinal canal and multilevel up to moderate neural foraminal degenerative changes. . Temporomandibular joints are maintained. Lungs: Imaged lung apices are clear of focal consolidation or mass. Upper lobe moderate centrilobular emphysematous changes. Was referred to Dr. Whyte. Underwent FNA of left neck mass on 07/19/2023. 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 Comment demonstrated that the flow cytometry revealed the aspirate material was B-cell lymphoma that was CD10 positive. The immunophenotype suggested follicular center origin. AE1-3 (AE1/AE3/PCK26) negative CD3 (PS1) negative CD5 (SP10) negative CD10 (56C6) positive CD15 (MMA) negative CD20 (L26) positive CD23 (1B12) negative CD30 (Ramu-H2) negative CD43 (L60) positive, focal CD45 (RP2/18) positive CD79a (11E3) positive CD138 (B-A38) negative BCL-2 (bcl-2/100/D5) positive BCL-6 (NE920M/A8) negative Cyclin D1/BCL-1 (SP4) negative MUM1 (MRQ-43) negative C-MYC (Y69) negative [place] (polyclonal) negative Lambda (polyclonal) negative P53 (DO-7) negative, null pattern Ki-67 (30-9) positive, 20% Per initial office visit: He feels well in general. No trouble with swallowing. No neck pain. Appetite has been normal. No constitutional symptoms of night sweats or weight loss. Had biopsy iliac lesion. Path c/w low grade follicular lymphoma. Presents for ongoing oncologic management. Interim history: He feels well and has no complaints. Denies MS pain. No subjective change in left cervical LN. Normal appetite. PAST MEDICAL HISTORY Diagnosis Date Abdominal aortic aneurysm Essential (primary) hypertension 11/20/2022 Lymphoma in remission 1992, 2000 had radiation tx and chemo PAST SURGICAL HISTORY Procedure Laterality Date COL (more content not included)... Normal [facility] Comprehensive metabolic 2000 panelon 09-13-2024 Albumin [Mass/Vol] 4.4 g/dL Normal 3.9-4.9 [facility] Comment on above: Order Comment: Speci men Type: BLOOD SPECIMENOrdering Facility: [facility] Address: [address] [place] [address] Performed By: #### 2 532-0, 83827-4 ####[facility] [id number] [place] [address] [place] ALP [Catalytic activity/Vol] 95 U/L Normal 38-113 [facility] Comment on above: Order Comment: Speci men Type: BLOOD SPECIMENOrdering Facility: [facility] Address: [address] [place] [address] Performed By: #### 2 532-0, 22390-5 ####[facility] [id number] [place] [address] [place] ALT [Catalytic activity/Vol] 17 U/L Normal 10-54 [facility] Comment on above: Order Comment: Speci men Type: BLOOD SPECIMENOrdering Facility: [facility] Address: [address] [place] [address] Performed By: #### 2 532-0, 05411-3 ####[facility]OSPITALLIA [id number] [place] [address] [place] Anion gap [Moles/Vol] 11 mmol/L Normal 8-15 [facility] Comment on above: Order Comment: Speci men Type: BLOOD SPECIMENOrdering Facility: [facility] Address: [address] [place] [address] Performed By: #### 2 532-0, 85836-7 ####[facility] DAVID MILLTOWNCLIA [id number] [place] [address] [place] AST [Catalytic activity/Vol] 16 U/L Normal 14-40 [facility] Comment on above: Order Comment: Speci men Type: BLOOD SPECIMENOrdering Facility: [facility] Address: [address] [place] [address] Performed By: #### 2 532-0, 95295-2 ####[facility] MILLTOWNCLIA [id number] [place] [address] [place] Bilirubin [Mass/Vol] 1.7 mg/dL High 0.2-1.3 [facility] Comment on above: Order Comment: Speci men Type: BLOOD SPECIMENOrdering Facility: [facility] Address: [address] [place] [address] Performed By: #### 2 532-0, 27037-4 ####[facility]ITALWNCLIA [id number] [place] [address] [place] Calcium [Mass/Vol] 9.9 mg/dL Normal 8.5-10.2 [facility] Comment on above: Order Comment: Speci men Type: BLOOD SPECIMENOrdering Facility: [facility] Address: [address] [place] [address] Performed By: #### 2 532-0, 45830-4 ####[facility] MILLWNCLIA [id number] [place] [address] [place] Chloride [Moles/Vol] 101 mmol/L Normal 98-107 [facility] Comment on above: Order Comment: Speci men Type: BLOOD SPECIMENOrdering Facility: [facility] Address: [address] [place] [address] Performed By: #### 2 532-0, 83416-1 ####[facility] MILLWNCLIA [id number] [place] [address] [place] CO2 [Moles/Vol] 28 mmol/L Normal 22-30 [facility] [place] Comment on above: Order Comment: Vanna men Type: BLOOD SPECIMENOrdering Facility: [facility] Address: [address] [place] [address] Performed By: #### 2 532-0, 88282-5 ####[facility] ERVIKTORIYA [id number] [place] [address] [place] Creatinine [Mass/Vol] 0.94 mg/dL Normal 0.73-1.22 [facility] Comment on above: Order Comment: Nicolei men Type: BLOOD SPECIMENOrdering Facility: [facility] Address: [address] [place] [address] Performed By: #### 2 532-0, 01326-9 ####[facility] ERNCLIA [id number] [place] [address] [place] Creatinine and Glomerular filtration rate.predicted panel (S/P/Bld) 78 mL/min/1.73m??? Normal >=60 [facility] [place] Comment on above: Order Comment: Vanna benítez Type: BLOOD SPECIMENOrdering Facility: [facility] Address: [address] [place] [address] Result Comment: Renate mated Glomerular Filtration Rate (eGFR) is calculated using the 2020 CKD-EPI creatinine equation. This equation utilizes serum creatinine, sex, and age as parameters. The creatinine assay has traceable calibration to isotope dilution-mass spectrometry. Refer to KDIGO guidelines for clinical interpretation. In patients with unstable renal function, e.g. those with acute kidney injury, the eGFR may not accurately reflect actual GFR. Performed By: #### 2 532-0, 10801-0 ####[facility] ERNCLIA [id number] [place] [address] [place] Glucose [Mass/Vol] 115 mg/dL High 74-99 [facility] Comment on above: Order Comment: Speci men Type: BLOOD SPECIMENOrdering Facility: [facility] Address: [address] [place] [address] Result Comment: The [place] Diabetes Association (ADA) provides guidance for cutoff values for fasting glucose and random glucose. The ADA defines fasting as no caloric intake for at least 8 hours. Fasting plasma glucose results between 100 to 125 mg/dL indicate increased risk for diabetes (prediabetes). Fasting plasma glucose results greater than or equal to 126 mg/dL meet the criteria for diagnosis of diabetes. In the absence of unequivocal hyperglycemia, results should be confirmed by repeat testing. In a patient with classic symptoms of hyperglycemia or hyperglycemic crisis, random plasma glucose results greater than or equal to 200 mg/dL meet the criteria for diagnosis of diabetes. Reference: Standards of Medical Care in Diabetes 2016, [place] [employer]. Diabetes Care. 2016.39(Suppl 1). Performed By: #### 2 532-0, 72719-7 ####[facility] [id number] [place] [address] [place] Potassium [Moles/Vol] 4.0 mmol/L Normal 3.7-5.1 [facility] Comment on above: Order Comment: Speci men Type: BLOOD SPECIMENOrdering Facility: [facility] Address: [address] [place] [address] Performed By: #### 2 532-0, 23788-9 ####[facility] [id number] [place] [address] [place] Protein [Mass/Vol] 7.4 g/dL Normal 6.3-8.0 [facility] Comment on above: Order Comment: Speci men Type: BLOOD SPECIMENOrdering Facility: [facility] Address: [address] [place], [place] [address] Performed By: #### 2 532-0, 13696-5 ####[facility] [id number] [place] [address] [place] Sodium [Moles/Vol] 140 mmol/L Normal 136-144 [facility] Comment on above: Order Comment: Speci men Type: BLOOD SPECIMENOrdering Facility: [facility] Address: [address] [place] [address] Performed By: #### 2 532-0, 18935-1 ####[facility] ERNCLIA [id number] [place] [address] [place] Urea nitrogen [Mass/Vol] 18 mg/dL Normal 9-24 [facility] [place] Comment on above: Order Comment: Speci men Type: BLOOD SPECIMENOrdering Facility: [facility] Address: [address] [place] [address] Performed By: #### 2 532-0, 11463-5 ####[facility] ERNCA [id number] [place] [address] [place] LDH SerPl-cCncon 09-13-2024 LDH [Catalytic activity/Vol] 167 U/L Normal 135-225 [facility] [place] Comment on above: Order Comment: Speci men Type: BLOOD SPECIMENOrdering Facility: [facility] Address: [address] [place] [address] Performed By: #### 2 532-0, 76696-6 ####[facility] ERNCA [id number] [place] [address] [place] CBC W Auto Differential pane l (Bld)on 07-07-2024 Basophils (Bld) [#/Vol] 0.09 10*3/uL Normal <0.11 [facility] [place] Comment on above: Order Comment: Speci men Type: BLOOD SPECIMENOrdering Facility: [facility] Address: [address] [place] [address] Performed By: #### 5 7021-8 ####[facility] LABCLIA [id number] [place] [address] [place] Basophils/100 WBC (Bld) 1.2 % Normal [facility] Comment on above: Order Comment: Speci men Type: BLOOD SPECIMENOrdering Facility: [facility] Address: [address] [place] [address] Performed By: #### 5 7021-8 ####[facility] LABCLIA [id number] [place] [address] [place] Differential cell count method Nom (Bld) Auto Normal [facility] [place] Comment on above: Order Comment: Speci men Type: BLOOD SPECIMENOrdering Facility: [facility] Address: [address] [place] [address] Performed By: #### 5 7021-8 ####[facility] LABCLIA [id number] [place] [address] [place] Eosinophils (Bld) [#/Vol] 0.18 10*3/uL Normal <0.46 [facility] [place] Comment on above: Order Comment: Speci men Type: BLOOD SPECIMENOrdering Facility: [facility] Address: [address] [place] [address] Performed By: #### 5 7021-8 ####[facility] LABCLIA [id number] [place] [address] [place] Eosinophils/100 WBC (Bld) 2.4 % Normal [facility] [place] Comment on above: Order Comment: Speci men Type: BLOOD SPECIMENOrdering Facility: [facility] Address: [address] [place] [address] Performed By: #### 5 7021-8 ####[facility] LABCLIA [id number] [place] [address] [place] Erythrocyte distribution width (RBC) [Ratio] 13.2 % Normal 11.5-15.0 [facility] [place] Comment on above: Order Comment: Speci men Type: BLOOD SPECIMENOrdering Facility: [facility] Address: [address] [place] [address] Performed By: #### 5 7021-8 ####[facility] LABCLIA [id number] [place] [address] [place] Hematocrit (Bld) [Volume fraction] 43.7 % Normal 39.0-51.0 [facility] [place] Comment on above: Order Comment: Speci men Type: BLOOD SPECIMENOrdering Facility: [facility] Address: [address] [place] [address] Performed By: #### 5 7021-8 ####[facility] LABCLIA [id number] [place] [address] [place] Hemoglobin (Bld) [Mass/Vol] 14.3 g/dL Normal 13.0-17.0 [facility] [place] Comment on above: Order Comment: Speci men Type: BLOOD SPECIMENOrdering Facility: [facility] Address: [address] [place] [address] Performed By: #### 5 7021-8 ####[facility] LABCLIA [id number] [place] [address] [place] Immature granulocytes (Bld) [#/Vol] 10*3/uL Normal <0.10 [facility] [place] Comment on above: Order Comment: Speci men Type: BLOOD SPECIMENOrdering Facility: [facility] Address: [address] [place] [address] Performed By: #### 5 7021-8 ####[facility] LABCLIA [id number] [place] [address] [place] Immature granulocytes/100 WBC (Bld) 0.1 % Normal [facility] [place] Comment on above: Order Comment: Speci men Type: BLOOD SPECIMENOrdering Facility: [facility] Address: [address] [place] [address] Performed By: #### 5 7021-8 ####[facility] LABCLIA [id number] [place] [address] [place] Lymphocytes (Bld) [#/Vol] 2.31 10*3/uL Normal 1.00-4.00 [facility] [place] Comment on above: Order Comment: Speci men Type: BLOOD SPECIMENOrdering Facility: [facility] Address: [address] [place] [address] Performed By: #### 5 7021-8 ####[facility] LABIA [id number] [place] [address] [place] Lymphocytes/100 WBC (Bld) 30.8 % Normal [facility] [place] Comment on above: Order Comment: Speci men Type: BLOOD SPECIMENOrdering Facility: [facility] Address: [address] [place] [address] Performed By: #### 5 7021-8 ####[facility] LABIA [id number] [place] [address] [place] MCH (RBC) [Entitic mass] 30.5 pg Normal 26.0-34.0 [facility] [place] Comment on above: Order Comment: Speci men Type: BLOOD SPECIMENOrdering Facility: [facility] Address: [address] [place] [address] Performed By: #### 5 7021-8 ####[facility] LABIA [id number] [place] [address] [place] MCHC (RBC) [Mass/Vol] 32.7 g/dL Normal 30.5-36.0 [facility] Comment on above: Order Comment: Speci men Type: BLOOD SPECIMENOrdering Facility: [facility] Address: [address] [place] [address] Performed By: #### 5 7021-8 ####[facility] LABIA [id number] [place] [address] [place] MCV (RBC) [Entitic vol] 93.2 fL Normal 80.0-100.0 [facility] Comment on above: Order Comment: Speci men Type: BLOOD SPECIMENOrdering Facility: [facility] Address: [address] [place] [address] Performed By: #### 5 7021-8 ####[facility] LABIA [id number] [place] [address] [place] Monocytes (Bld) [#/Vol] 0.72 10*3/uL Normal <0.87 [facility] [place] Comment on above: Order Comment: Speci men Type: BLOOD SPECIMENOrdering Facility: [facility] Address: [address] [place] [address] Performed By: #### 5 7021-8 ####[facility] LABCLIA [id number] [place] [address] [place] Monocytes/100 WBC (Bld) 9.6 % Normal [facility] Comment on above: Order Comment: Speci men Type: BLOOD SPECIMENOrdering Facility: [facility] Address: [address] [place] [address] Performed By: #### 5 7021-8 ####[facility] LABCLIA [id number] [place] [address] [place] Neutrophils (Bld) [#/Vol] 4.19 10*3/uL Normal 1.45-7.50 [facility] [place] Comment on above: Order Comment: Speci men Type: BLOOD SPECIMENOrdering Facility: [facility] Address: [address] [place] [address] Performed By: #### 5 7021-8 ####[facility] LABCLIA [id number] [place] [address] [place] Neutrophils/100 WBC (Bld) 55.9 % Normal [facility] [place] Comment on above: Order Comment: Speci men Type: BLOOD SPECIMENOrdering Facility: [facility] Address: [address] [place] [address] Performed By: #### 5 7021-8 ####[facility] LABCLIA [id number] [place] [address] [place] Nucleated RBC (Bld) [#/Vol] 10*3/uL Normal <0.01 [facility] [place] Comment on above: Order Comment: Speci men Type: BLOOD SPECIMENOrdering Facility: [facility] Address: [address] [place] [address] Performed By: #### 5 7021-8 ####[facility] LABCLIA [id number] [place] [address] [place] Nucleated RBC/100 WBC (Bld) [Ratio] 0.0 /100 WBC Normal [facility] [place] Comment on above: Order Comment: Speci men Type: BLOOD SPECIMENOrdering Facility: [facility] Address: [address] [place] [address] Performed By: #### 5 7021-8 ####[facility] LABCLIA [id number] [place] [address] [place] Platelet mean volume (Bld) [Entitic vol] 11.0 fL Normal 9.0-12.7 [facility] [place] Comment on above: Order Comment: Speci men Type: BLOOD SPECIMENOrdering Facility: [facility] Address: [address] [place] [address] Performed By: #### 5 7021-8 ####[facility] LABCLIA [id number] [place] [address] [place] Platelets (Bld) [#/Vol] 230 10*3/uL Normal 150-400 [facility] [place] Comment on above: Order Comment: Speci men Type: BLOOD SPECIMENOrdering Facility: [facility] Address: [address] [place] [address] Performed By: #### 5 7021-8 ####[facility] LABCLIA [id number] [place] [address] [place] RBC (Bld) [#/Vol] 4.69 10*6/uL Normal 4.20-6.00 [facility] Comment on above: Order Comment: Speci men Type: BLOOD SPECIMENOrdering Facility: [facility] Address: [address] [place] [address] Performed By: #### 5 7021-8 ####[facility] LABCLIA [id number] [place] [id number] [place] WBC (Bld) [#/Vol] 7.50 10*3/uL Normal 3.70-11.00 [facility] Comment on above: Order Comment: Speci men Type: BLOOD SPECIMENOrdering Facility: [facility] Address: [address] [place] [address] Performed By: #### 5 7021-8 ####[facility] LABCLIA [id number] [place] [id number] [place] CNOVon 07-07-2024 CNOV Office Visit (FAMPWS ) VICK ROMAN ([id number]) 1935 M Date Time Provider Department 07/07/24 10:00 [facility] your visit today, we recorded the following information about you: Pulse Blood pressure Weight 56/minute 138/88 59 kg Stanley Kaiser MD 07/07/2024 10:09 AM Signed Patient presents with: 6 Month Exam HPI: Patient presents today for office visit for follow up. HYPERLIPIDEMIA: Patient is taking medications: Yes. Patient is watching diet: Yes. Patient denies myalgias: Yes. Patient denies gi upset: Yes Follows with Dr Fontenot for Lymphoma. Had recent recurrence. He has elected to watch since low grade he will follow with ENT as well. Last ct/pet done by Dr Fontenot: * Approximately 5.5 cm infrarenal abdominal aortic aneurysm. Based on availability of prior studies, recommend follow-up evaluation. He was seeing Dr Ortiz, vascular surgery for same previously. He is leaning towards not following it. He is aware of risks and benefits. Has an A1c that is ordered. No issue with meds. MEDICATIONS: Current Outpatient Medications Medication Sig atorvastatin (LIPITOR) 80 mg tablet Take 1 tablet by mouth once daily. aspirin 81 mg cap Take 1 tablet by mouth once daily. No current facility-administered medications for this visit. ALLERGIES: ALLERGIES No Known Allergies PAST MEDICAL HISTORY Diagnosis Date Abdominal aortic aneurysm (HCC) Essential (primary) hypertension 11/20/2022 Lymphoma in remission 1992, 2000 had radiation tx and chemo [...] other (possible overdose [Other]) Father age 61 No Known Problems Sister No Known Problems Sister No Known Problems Sister No Known Problems Brother Heart Brother Social History Tobacco Use Smoking status: Every Day Current packs/day: 1.00 Average packs/day: 1 pack/day for 77.0 years (77.0 ttl pk-yrs) Types: Cigarettes Smokeless tobacco: Never Vaping Use Vaping status: Never Used Substance Use Topics Alcohol use: No Drug use: No Reviewed current medications, allergies, past medical history, surgical history, family history and social history today. REVIEW OF SYSTEMS Declines smoking cessation. All other reviewed and negative other than HPI. HEALTH MAINTENANCE: Reviewed health maintenance issues today and recommended the following in detail. RSV Vaccine(1 - 1-dose 75+ series) Never done Influenza Vaccine(1) due on 01/16/2024 Advance Directive Discussion due on 05/17/2024 VITALS: BP 138/88 Pulse (!) 56 Wt 59 kg (130 lb) SpO2 97% BMI 23.03 kg/m? Last 4 Encounter Wt Readings: Date: Wt: 03/15/2024 59.2 kg (130 lb 8 oz) 12/29/2023 57.6 kg (127 lb) 12/15/2023 58.1 kg (128 lb) 09/22/2023 58.5 kg (129 lb) PHYSICAL EXAMINATION: General appearance: Well appearing, alert, in no acute distress, well-hydrated, well nourished. Skin: Skin color, texture, turgor normal, no suspicious rashes or lesions Head: Normocephalic, no masses, lesions, tenderness or abnormalities Eyes: Anicteric sclera. Pupils are equally round and reactive to light. Extraocular movements are intact. Lungs: Lungs clear to auscultation. No wheezing, rhonchi, rales Heart: RRR without murmur, gallop, or rubs. No ectopy Abdomen: Normal abdominal exam, Abdomen soft, non-tender. Bowel sounds normal. No masses, organomegaly Extremities: No deformities, edema, skin discoloration, clubbing or cyanosis. Good capillary refill. ASSESSMENT/PLAN: 1. Abdominal aortic aneurysm (AAA) without rupture, unspecified part (HCC) - ICD9: 441.4, ICD10: I71.40 (primary diagnosis) - refusing follow up. 2. Mixed hyperlipidemia - ICD9: 272.2, ICD10: E78.2 - Controlled - Continue current medications - ATORVASTATIN 80 MG TABLET - COMPREHENSIVE METABOLIC PANEL - COMPLETE BLOOD COUNT AND DIFFERENTIAL - LIPID PANEL BASIC 3. Essential (primary) hypertension - ICD9: 401.9, ICD10: I10 - fair control. Leave as is given age. 4. Lymphoma, unspecified body region, unspecified lymphoma type (HCC) - ICD9: 202.80, ICD10: C85.90 - per Dr Fontenot 5. Prediabetes - ICD9: 790.29, ICD10: R73.03 - follow labs. 6. Tobacco user - ICD9: 305.1, ICD10: Z72.0 - declines cessation. Stanley Kaiser RTO in six months and prn. Allergies As of Date: 07/07/2024 (No Known Allergies) Date Reviewed: 07/07/2024 Reviewed by: Jess Rich LPN - Fully Assessed Reason for Visit (more content not included)... Normal [facility] [place] Comprehensive metabolic 2000 panelon 07-07-2024 Albumin [Mass/Vol] 4.4 g/dL Normal 3.9-4.9 [facility] Comment on above: Order Comment: Speci men Type: BLOOD SPECIMENOrdering Facility: [facility] Address: [address] [place] [address] [place] [address] Performed By: #### 2 4323-8, 00510-0 ####[facility] LABCLIA [id number] [place] [address] [place] ALP [Catalytic activity/Vol] 82 U/L Normal 38-113 [facility] [place] Comment on above: Order Comment: Speci men Type: BLOOD SPECIMENOrdering Facility: [facility] Address: [address] [place] [address] Performed By: #### 2 4323-8, 87381-6 ####[facility] LABCLIA [id number] [place] [address] [place] ALT [Catalytic activity/Vol] 27 U/L Normal 10-54 [facility] [place] Comment on above: Order Comment: Speci men Type: BLOOD SPECIMENOrdering Facility: [facility] Address: [address] [place] [address] Performed By: #### 2 4323-8, 22517-4 ####[facility] LABCLIA [id number] [place] [address] [place] Anion gap [Moles/Vol] 12 mmol/L Normal 8-15 [facility] Comment on above: Order Comment: Speci men Type: BLOOD SPECIMENOrdering Facility: [facility] Address: [address] [place] [address] Performed By: #### 2 4323-8, 62388-8 ####[facility] LABCLIA [id number] [place] [address] [place] AST [Catalytic activity/Vol] 24 U/L Normal 14-40 [facility] [place] Comment on above: Order Comment: Speci men Type: BLOOD SPECIMENOrdering Facility: [facility] Address: [address] [place] [address] Performed By: #### 2 4323-8, 91884-3 ####[facility] LABCLIA [id number] [place] [address] [place] Bilirubin [Mass/Vol] 1.0 mg/dL Normal 0.2-1.3 [facility] Comment on above: Order Comment: Speci men Type: BLOOD SPECIMENOrdering Facility: [facility] Address: [address] [place] [address] Performed By: #### 2 4323-8, 06335-5 ####[facility] LABCLIA [id number] [place] [address] [place] Calcium [Mass/Vol] 9.2 mg/dL Normal 8.5-10.2 [facility] Comment on above: Order Comment: Speci men Type: BLOOD SPECIMENOrdering Facility: [facility] Address: [address] [place] [address] Performed By: #### 2 4323-8, 12299-7 ####[facility] LABCLIA [id number] [place] [address] [place] Chloride [Moles/Vol] 100 mmol/L Normal 98-107 [facility] Comment on above: Order Comment: Speci men Type: BLOOD SPECIMENOrdering Facility: [facility] Address: [address] [place] [address] Performed By: #### 2 4323-8, ####[facility] LABCLIA [id number] [place] [address] [place] CO2 [Moles/Vol] 27 mmol/L Normal 22-30 [facility] [place] Comment on above: Order Comment: Speci men Type: BLOOD SPECIMENOrdering Facility: [facility] Address: [address] [place] [address] Performed By: #### 2 4323-8, 24678-2 ####[facility] LABCLIA [id number] [place] [id number] [place] Creatinine [Mass/Vol] 0.92 mg/dL Normal 0.73-1.22 [facility] Comment on above: Order Comment: Speci men Type: BLOOD SPECIMENOrdering Facility: [facility] Address: [address] [place] [address] Performed By: #### 2 4323-8, 93889-0 ####[facility] LABIA [id number] [place] [address] [place] Creatinine and Glomerular filtration rate.predicted panel (S/P/Bld) 81 mL/min/1.73m??? Normal >=60 [facility] [place] Comment on above: Order Comment: Speci men Type: BLOOD SPECIMENOrdering Facility: [facility] Address: [address] [place] [address] Result Comment: Renate mated Glomerular Filtration Rate (eGFR) is calculated using the 2020 CKD-EPI creatinine equation. This equation utilizes serum creatinine, sex, and age as parameters. The creatinine assay has traceable calibration to isotope dilution-mass spectrometry. Refer to KDIGO guidelines for clinical interpretation. In patients with unstable renal function, e.g. those with acute kidney injury, the eGFR may not accurately reflect actual GFR. Performed By: #### 2 4323-8, 27969-9 ####[facility] LABIA [id number] [place] [address] [place] Glucose [Mass/Vol] 106 mg/dL High 74-99 [facility] Comment on above: Order Comment: Vanna jackelin Type: BLOOD SPECIMENOrdering Facility: [facility] Address: [address] [place] [address] Result Comment: The [place] [employer] (ADA) provides guidance for cutoff values for fasting glucose and random glucose. The ADA defines fasting as no caloric intake for at least 8 hours. Fasting plasma glucose results between 100 to 125 mg/dL indicate increased risk for diabetes (prediabetes). Fasting plasma glucose results greater than or equal to 126 mg/dL meet the criteria for diagnosis of diabetes. In the absence of unequivocal hyperglycemia, results should be confirmed by repeat testing. In a patient with classic symptoms of hyperglycemia or hyperglycemic crisis, random plasma glucose results greater than or equal to 200 mg/dL meet the criteria for diagnosis of diabetes. Reference: Standards of Medical Care in Diabetes 2016, [place] [employer]. Diabetes Care. 2016.39(Suppl 1). Performed By: #### 2 4323-8, 91839-2 ####[facility] LABCLIA [id number] [address] [address] [place] Potassium [Moles/Vol] 4.2 mmol/L Normal 3.7-5.1 [facility] Comment on above: Order Comment: Speci men Type: BLOOD SPECIMENOrdering Facility: [facility] Address: [address] [place] [address] Performed By: #### 2 4323-8, 86377-8 ####[facility] LABCLIA [id number] [place] [address] [place] Protein [Mass/Vol] 7.2 g/dL Normal 6.3-8.0 [facility] Comment on above: Order Comment: Speci men Type: BLOOD SPECIMENOrdering Facility: [facility] Address: [address] [place] [address] Performed By: #### 2 4323-8, ####[facility] LABCLIA [id number] [place] [address] [place] Sodium [Moles/Vol] 139 mmol/L Normal 136-144 [facility] Comment on above: Order Comment: Speci men Type: BLOOD SPECIMENOrdering Facility: [facility] Address: [address] [place] [address] Performed By: #### 2 4323-8, ####[facility] LABCLIA [id number] [address] [address] [place] Urea nitrogen [Mass/Vol] 17 mg/dL Normal 9-24 [facility] Comment on above: Order Comment: Speci men Type: BLOOD SPECIMENOrdering Facility: [facility] Address: [address] [place], [place] [address] Performed By: #### 2 4323-8, 46896-8 ####[facility] LABCLIA [id number] [address] [place] HbA1c (Bld)on 07-07-2024 Average glucose Estimated from glycated hemoglobin (Bld) [Mass/Vol] 111 mg/dL Normal [facility] Comment on above: Order Comment: Vanna benítez Type: BLOOD SPECIMENOrdering Facility: [facility] Address: [address] [place] [address] Result Comment: eAG: (Estimated average glucose) is a calculated value from HgbA1c and is loan representative of the average blood glucose level in the last 2-3 month period. Performed By: #### 5 5454-3 ####[facility] LABCLIA [id number] [address] STATES OF [facility] HbA1c (Bld) [Mass fraction] 5.5 % Normal 4.3-5.6 [facility] Comment on above: Order Comment: Vanna benítez Type: BLOOD SPECIMENOrdering Facility: [facility] Address: [address] [place] [address] Result Comment: [place] Diabetes Association guidelines indicate that patients with HgbA1c in the range 5.7-6.4% are at increased risk for development of diabetes, and intervention by lifestyle modification may be beneficial. HgbA1c greater or equal to 6.5% is considered diagnostic of diabetes. Performed By: #### 5 5454-3 ####[facility] LABCLIA [id number] [place] [address] [place] Lipid 1996 panelon 5 Cholesterol [Mass/Vol] 134 mg/dL Normal <200 [facility] Comment on above: Order Comment: Vanna [facility] Type: BLOOD SPECIMENOrdering Facility: [facility] Address: [address] [place] [address] Result Comment: <200 mg/dL, Desirable 200-239 mg/dL, Borderline high >239 mg/dL, High Performed By: #### 2 4323-8, 02943-7 ####[facility] LABIA [id number] [place] [address] [place] Cholesterol in HDL [Mass/Vol] 60 mg/dL Normal >39 [facility] Comment on above: Order Comment: Vanna benítez Type: BLOOD SPECIMENOrdering Facility: [facility] Address: [address] [place] [address] Result Comment: 40-5 9 mg/dL, Acceptable >59 mg/dL, High: Negative risk factor for coronary heart disease <40 mg/dL, Low: Positive risk factor for coronary heart disease Performed By: #### 2 4323-8, 04984-2 ####[facility] LABCLIA [id number] [address] Cholesterol in LDL [Mass/Vol] 57 mg/dL Normal <100 [facility] Comment on above: Order Comment: Nicoleestella benítez Type: BLOOD SPECIMENOrdering Facility: [facility] Address: [address] [place] [address] Result Comment: <100 mg/dL, Optimal 100-129 mg/dL, Near optimal/above optimal 130-159 mg/dL, Borderline high 160-189 mg/dL, High >189 mg/dL, Very high Secondary prevention optimal LDL Cholesterol levels are recommended to be < 70 mg/dL Performed By: #### 2 4323-8, 24134-1 ####[facility] LABCLIA [id number] [address] Cholesterol in LDL/Cholesterol in HDL [Mass ratio] 0.95 {ratio} Normal <2.54 [facility] Comment on above: Order Comment: Vanna benítez Type: BLOOD SPECIMENOrdering Facility: [facility] Address: [address] [place] [address] Result Comment: Refe rence: 1. National Cholesterol Education Program ATP III Guideline At-A-Glance Quick Desk Reference: National Heart, Lung, and Blood [place]. National Institutes of Health. 2001: NIH Publication No. 01-3305. 2. An International Atherosclerosis Society position paper: global recommendations for the management of dyslipidemia: executive summary, Atherosclerosis. 2014: 232(2):410-413. Performed By: #### 2 4323-8, 03719-8 ####[facility] LABCLIA [id number] [address] [address] [place] Cholesterol in VLDL [Mass/Vol] 17 mg/dL Normal <30 [facility] Comment on above: Order Comment: Speci men Type: BLOOD SPECIMENOrdering Facility: [facility] Address: [address] [place] [address] Performed By: #### 2 4323-8, 05910-4 ####[facility] LABCLIA [id number] [place] [address] [place] Cholesterol non HDL [Mass/Vol] 74 mg/dL Normal <130 [facility] Comment on above: Order Comment: Speci men Type: BLOOD SPECIMENOrdering Facility: [facility] Address: [address] [place] [address] Result Comment: <130 mg/dL, Optimal 130-159 mg/dL, Near optimal/above optimal 160-189 mg/dL, Borderline high 190-219 mg/dL, High >219 mg/dL, Very high Secondary prevention optimal non HDL Cholesterol levels are recommended to be <100 mg/dL Performed By: #### 2 4323-8, 61252-5 ####[facility] LABCLIA [id number] [place] [address] [place] Cholesterol.total/Lexi sterol in HDL [Mass ratio] 2.23 {ratio} Normal <5.10 [facility] Comment on above: Order Comment: Speci men Type: BLOOD SPECIMENOrdering Facility: [facility] Address: [address] [place] [id number] Performed By: #### 2 4323-8, 68597-5 ####[facility] LABCLIA [id number] [place] [address] [place] FASTING TIME 12 hrs Normal [facility] Comment on above: Order Comment: Speci men Type: BLOOD SPECIMENOrdering Facility: [facility] Address: [address] [place] [address] Performed By: #### 2 4323-8, 96409-1 ####[facility] LABCLIA [id number] [place] [address] [place] Triglyceride [Mass/Vol] 84 mg/dL Normal <150 [facility] Comment on above: Order Comment: Speci men Type: BLOOD SPECIMENOrdering Facility: [facility] Address: [address] [place] [address] Result Comment: <150 mg/dL, Normal 150-199 mg/dL, Borderline high 200-499 mg/dL, High >499 mg/dL, Very high Performed By: #### 2 4323-8, 05082-6 ####[facility] LABCLIA [id number] [place] [address] [place] CBC W Auto Differential pane l (Bld)on 03-15-2024 Basophils (Bld) [#/Vol] 0.07 10*3/uL Normal <0.11 [facility] Comment on above: Order Comment: Speci men Type: BLOOD SPECIMENOrdering Facility: [facility] Address: [address] [place] [address] Performed By: #### 5 7021-8 ####[facility] ERVIKTORIYA [id number] [place] [address] [place] Basophils/100 WBC (Bld) 0.9 % Normal [facility] Comment on above: Order Comment: Speci men Type: BLOOD SPECIMENOrdering Facility: [facility] Address: [address] [place] [address] Performed By: #### 5 7021-8 ####[facility] ERDEVIA [id number] [place] [address] [place] Differential cell count method Nom (Bld) Auto Normal [facility] Comment on above: Order Comment: Speci men Type: BLOOD SPECIMENOrdering Facility: [facility] Address: [address] [place] [address] Performed By: #### 5 7021-8 ####[facility] MILLWNCLIA [id number] [place] [address] [place] Eosinophils (Bld) [#/Vol] 0.25 10*3/uL Normal <0.46 [facility] Comment on above: Order Comment: Speci men Type: BLOOD SPECIMENOrdering Facility: [facility] Address: [address] [place] [address] Performed By: #### 5 7021-8 ####[facility] [id number] [place] [address] [place] Eosinophils/100 WBC (Bld) 3.1 % Normal [facility] Comment on above: Order Comment: Speci men Type: BLOOD SPECIMENOrdering Facility: [facility] Address: [address] [place] [address] Performed By: #### 5 7021-8 ####[facility] [id number] [place] [address] [place] Erythrocyte distribution width (RBC) [Ratio] 12.7 % Normal 11.5-15.0 [facility] Comment on above: Order Comment: Speci men Type: BLOOD SPECIMENOrdering Facility: [facility] Address: [address] [place] [address] Performed By: #### 5 7021-8 ####[facility] [id number] [place] [address] [place] Hematocrit (Bld) [Volume fraction] 43.1 % Normal 39.0-51.0 [facility] Comment on above: Order Comment: Speci men Type: BLOOD SPECIMENOrdering Facility: [facility] Address: [address] [place] [address] Performed By: #### 5 7021-8 ####[facility] ERNCLIA [id number] [place] [address] [place] Hemoglobin (Bld) [Mass/Vol] 14.2 g/dL Normal 13.0-17.0 [facility] Comment on above: Order Comment: Speci men Type: BLOOD SPECIMENOrdering Facility: [facility] Address: [address] [place] [address] Performed By: #### 5 7021-8 ####[facility] RIVERSIDEA [id number] [place] [address] [place] Immature granulocytes (Bld) [#/Vol] 10*3/uL Normal <0.10 [facility] Comment on above: Order Comment: Speci men Type: BLOOD SPECIMENOrdering Facility: [facility] Address: [address] [place] [address] Performed By: #### 5 7021-8 ####[facility] [id number] [place] [address] [place] Immature granulocytes/100 WBC (Bld) 0.2 % Normal [facility] Comment on above: Order Comment: Speci men Type: BLOOD SPECIMENOrdering Facility: [facility] Address: [address] [place] [address] Performed By: #### 5 7021-8 ####[facility] [id number] [place] [address] [place] Lymphocytes (Bld) [#/Vol] 2.58 10*3/uL Normal 1.00-4.00 [facility] Comment on above: Order Comment: Speci men Type: BLOOD SPECIMENOrdering Facility: [facility] Address: [address] [place] [address] Performed By: #### 5 7021-8 ####[facility] [id number] [place] [address] [place] Lymphocytes/100 WBC (Bld) 31.8 % Normal [facility] Comment on above: Order Comment: Speci men Type: BLOOD SPECIMENOrdering Facility: [facility] Address: [address] [place] [address] Performed By: #### 5 7021-8 ####[facility] DONNAROWESVILLEVIKTORIYA [id number] [address] [place] [facility] MCH (RBC) [Entitic mass] 30.6 pg Normal 26.0-34.0 [facility] Comment on above: Order Comment: Speci men Type: BLOOD SPECIMENOrdering Facility: [facility] Address: [address] [place] [address] Performed By: #### 5 7021-8 ####[facility]CS[facility] [id number] [place] [address] [place] MCHC (RBC) [Mass/Vol] 32.9 g/dL Normal 30.5-36.0 [facility] Comment on above: Order Comment: Speci men Type: BLOOD SPECIMENOrdering Facility: [facility] Address: [address] [place] [address] Performed By: #### 5 7021-8 ####[facility] ERADAMSAN [facility] [id number] [place] [address] [place] MCV (RBC) [Entitic vol] 92.9 fL Normal 80.0-100.0 [facility] Comment on above: Order Comment: Speci men Type: BLOOD SPECIMENOrdering Facility: [facility] Address: [address] [place] [address] Performed By: #### 5 7021-8 ####[facility] ERADAMLI [id number] [place] [address] [place] Monocytes (Bld) [#/Vol] 0.82 10*3/uL Normal <0.87 [facility] Comment on above: Order Comment: Speci men Type: BLOOD SPECIMENOrdering Facility: [facility] Address: [address] [place] [address] Performed By: #### 5 7021-8 ####[facility]ITALWNCL[facility] [id number] [place] [address] [place] Monocytes/100 WBC (Bld) 10.1 % Normal [facility] Comment on above: Order Comment: Speci men Type: BLOOD SPECIMENOrdering Facility: [facility] Address: [address] [place] [address] Performed By: #### 5 7021-8 ####[facility] [id number] [place] [address] [place] Neutrophils (Bld) [#/Vol] 4.38 10*3/uL Normal 1.45-7.50 [facility] Comment on above: Order Comment: Speci men Type: BLOOD SPECIMENOrdering Facility: [facility] Address: [address] [place] [address] Performed By: #### 5 7021-8 ####[facility] [id number] [place] [address] [place] Neutrophils/100 WBC (Bld) 53.9 % Normal [facility] Comment on above: Order Comment: Speci men Type: BLOOD SPECIMENOrdering Facility: [facility] Address: [address] [place] [address] Performed By: #### 5 7021-8 ####[facility] [id number] [place] [address] [place] Nucleated RBC (Bld) [#/Vol] 10*3/uL Normal <0.01 [facility] Comment on above: Order Comment: Speci men Type: BLOOD SPECIMENOrdering Facility: [facility] Address: [address] [place] [address] Performed By: #### 5 7021-8 ####[facility] [id number] [place] [address] [place] Nucleated RBC/100 WBC (Bld) [Ratio] 0.0 /100 WBC Normal [facility] Comment on above: Order Comment: Speci men Type: BLOOD SPECIMENOrdering Facility: [facility] Address: [address] [place] [address] Performed By: #### 5 7021-8 ####[facility] [id number] [place] [address] [place] Platelet mean volume (Bld) [Entitic vol] 9.6 fL Normal 9.0-12.7 [facility] Comment on above: Order Comment: Speci men Type: BLOOD SPECIMENOrdering Facility: [facility] Address: [address] [place] [address] Performed By: #### 5 7021-8 ####[facility] [id number] [place] [address] [place] Platelets (Bld) [#/Vol] 250 10*3/uL Normal 150-400 [facility] Comment on above: Order Comment: Speci men Type: BLOOD SPECIMENOrdering Facility: [facility] Address: [address] [place] [address] Performed By: #### 5 7021-8 ####[facility] [id number] [place] [address] [place] RBC (Bld) [#/Vol] 4.64 10*6/uL Normal 4.20-6.00 [facility] Comment on above: Order Comment: Speci men Type: BLOOD SPECIMENOrdering Facility: [facility] Address: [address] [place], [place] [address] Performed By: #### 5 7021-8 ####[facility] [id number] [place] [address] [place] WBC (Bld) [#/Vol] 8.12 10*3/uL Normal 3.70-11.00 [facility] Comment on above: Order Comment: Vanna benítez Type: BLOOD SPECIMENOrdering Facility: [facility] Address: [address] [place] [id number] Performed By: #### 5 7021-8 ####[facility] DAVID NICOLAS [id number] [place] [address] [place] CNOVSPon 03-15-2024 CNOVSP Visit (SP) Office ([facility]) VICK ROMAN ([id number]) 1935 M Date Time Provider Department 03/15/24 9:30 AM TOMAS FONTENOT During your visit today, we recorded the following information about you: Temperature Pulse Blood pressure Weight 96.9 degrees 63/minute 156/83 59.2 kg Tomas Fontenot DO 03/15/2024 9:47 AM Signed 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 HPI: The patient is an 88-year-old male with a past medical history as outlined below. Diagnosed with lymphoma in 1992 when presented with left groin adenopathy. Received radiation. Recurred 2000 with right groin adenopathy. He didn't seek medical attention right away and when did required chemotherapy (R-CHOP x6) followed by radiation. Last seen here for follow up 05/06/2004 prior to recent recurrence. 5-6 weeks prior to presentation, noticed a hard lump posterior left cervical area. CT Neck 06/18/2023: Irregular hyperattenuating, likely enhancing soft tissue with infiltrative margins deep to the LEFT sternocleidomastoid muscle, posterior to the LEFT digastric muscle, and anterior to the LEFT trapezius muscle with possible intramuscular component along the deep surface of the sternocleidomastoid muscle measuring approximately 4.5 x 1.9 x 5.1 cm (transaxial long axis by short axis by CC oblique; 5:62 and 7:91). 1.1 x 1.1 cm well-circumscribed lesion within the skin and subcutaneous tissue of the RIGHT posterior neck, likely an epidermoid inclusion cyst (5:62). Suprahyoid Neck: Nasopharynx and oropharynx appear grossly normal. Parapharyngeal tissue planes are preserved. Oral cavity and floor of mouth appear normal within constraints of artifact from dental amalgam. Lumber Tallier spaces appear normal. Infrahyoid Neck: Hypopharynx, larynx, and imaged infraglottic trachea appear grossly normal. Imaged upper esophagus is unremarkable. Lymph nodes: No cervical lymphadenopathy by size, number or morphologic criteria. Small nonspecific lymph nodes are scattered throughout the neck. Major salivary glands: Parotid and submandibular spaces are unremarkable. Thyroid gland: Thyroid gland is homogeneous without evidence of discrete nodule. Carotid space: Patent bilateral extracranial carotid and jugular systems. Severe narrowing of the LEFT internal jugular vein beginning in the LEFT infratemporal fossa. The stylomastoid foramen. Intracranial contents: No abnormal intracranial enhancement, mass effect, or hydrocephalus. Remote LEFT caudate head infarct. Orbits, Face and Skull Base: Focal radiopacity along the LEFT medial canthus. Postoperative changes in the bilateral globes. Orbital soft tissue planes are otherwise preserved. Paranasal sinuses are clear. Mastoid air cells and middle ear cavities are clear. No evidence of an osteolytic or osteoblastic process in the skull base. Bones: Diffuse osteopenia, likely age related. No suspicious osseous lesions in the imaged calvarium, skull base and spine. Normal cervicothoracic alignment. Multilevel mild spinal canal and multilevel up to moderate neural foraminal degenerative changes. . Temporomandibular joints are maintained. Lungs: Imaged lung apices are clear of focal consolidation or mass. Upper lobe moderate centrilobular emphysematous changes. Was referred to Dr. Whyte. Underwent FNA of left neck mass on 07/19/2023. 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 Comment demonstrated that the flow cytometry revealed the aspirate material was B-cell lymphoma that was CD10 positive. The immunophenotype suggested follicular center origin. AE1-3 (AE1/AE3/PCK26) negative CD3 (PS1) negative CD5 (SP10) negative CD10 (56C6) positive CD15 (MMA) negative CD20 (L26) positive CD23 (1B12) negative CD30 (Ramu-H2) negative CD43 (L60) positive, focal CD45 (RP2/18) positive CD79a (11E3) positive CD138 (B-A38) negative BCL-2 (bcl-2/100/D5) positive BCL-6 (VG510N/A8) negative Cyclin D1/BCL-1 (SP4) negative MUM1 (MRQ-43) negative C-MYC (Y69) negative [place] (polyclonal) negative Lambda (polyclonal) negative P53 (DO-7) negative, null pattern Ki-67 (30-9) positive, 20% Per initial office visit: He feels well in general. No trouble with swallowing. No neck pain. Appetite has been normal. No constitutional symptoms of night sweats or weight loss. Had biopsy iliac lesion. Path c/w low grade follicular lymphoma. Presents for ongoing oncologic management. Interim history: He offers no complaints today. No constitutional symptoms. No musculoskeletal pain. Remains active. PAST MEDICAL HISTORY Diagnosis Date Abdominal aortic aneurysm (HCC) Essential (primary) hypertension 11/20/2022 Lymphoma in remission 1992, 2000 had radiation tx and chemo PAST SURGICAL HISTORY Procedure Laterality Date COLEC (more content not included)... Normal [facility] Comprehensive metabolic 2000 panelon 03-15-2024 Albumin [Mass/Vol] 4.2 g/dL Normal 3.9-4.9 [facility] Comment on above: Order Comment: Speci men Type: BLOOD SPECIMENOrdering Facility: [facility] Address: [address] [place] [address] Performed By: #### 2 4323-8 ####[facility] [id number] [place] [address] [place] ALP [Catalytic activity/Vol] 86 U/L Normal 38-113 [facility] Comment on above: Order Comment: Speci men Type: BLOOD SPECIMENOrdering Facility: [facility] Address: [address] [place] [address] Performed By: #### 2 4323-8 ####[facility] [id number] [place] [address] [place] ALT [Catalytic activity/Vol] 28 U/L Normal 10-54 [facility] Comment on above: Order Comment: Speci men Type: BLOOD SPECIMENOrdering Facility: [facility] Address: [address] [place] [address] Performed By: #### 2 4323-8 ####[facility]ITALWNCL[facility] [id number] [place] [address] [place] Anion gap [Moles/Vol] 11 mmol/L Normal 8-15 [facility] Comment on above: Order Comment: Speci men Type: BLOOD SPECIMENOrdering Facility: [facility] Address: [address] [place] [address] Performed By: #### 2 4323-8 ####[facility] ERNCA [id number] [place] [address] [place] AST [Catalytic activity/Vol] 23 U/L Normal 14-40 [facility] Comment on above: Order Comment: Speci men Type: BLOOD SPECIMENOrdering Facility: [facility] Address: [address] [place] [address] Performed By: #### 2 4323-8 ####[facility] ERNCLIA [id number] [place] [address] [place] Bilirubin [Mass/Vol] 1.0 mg/dL Normal 0.2-1.3 [facility] Comment on above: Order Comment: Speci men Type: BLOOD SPECIMENOrdering Facility: [facility] Address: [address] [place] [address] Performed By: #### 2 4323-8 ####[facility] [id number] [place] [address] [place] Calcium [Mass/Vol] 9.4 mg/dL Normal 8.5-10.2 [facility] [facility] Comment on above: Order Comment: Speci men Type: BLOOD SPECIMENOrdering Facility: [facility] Address: [address] [place] [address] Performed By: #### 2 4323-8 ####[facility] ERNCLIA [id number] [place] [address] [place] Chloride [Moles/Vol] 100 mmol/L Normal 98-107 [facility] Comment on above: Order Comment: Speci men Type: BLOOD SPECIMENOrdering Facility: [facility] Address: [address] [place] [address] Performed By: #### 2 4323-8 ####[facility] ERNCLIA [id number] [place] [address] [place] CO2 [Moles/Vol] 26 mmol/L Normal 22-30 [facility] Comment on above: Order Comment: Speci men Type: BLOOD SPECIMENOrdering Facility: [facility] Address: [address] [place] [address] Performed By: #### 2 4323-8 ####[facility] RIVERSIDEA [id number] [place] [address] [place] Creatinine [Mass/Vol] 0.87 mg/dL Normal 0.73-1.22 [facility] Comment on above: Order Comment: Speci men Type: BLOOD SPECIMENOrdering Facility: [facility] Address: [address] [place] [address] Performed By: #### 2 4323-8 ####[facility] [id number] [place] [address] [facility] [place] Creatinine and Glomerular filtration rate.predicted panel (S/P/Bld) 84 mL/min/1.73m??? Normal >=60 [facility] Comment on above: Order Comment: Speci men Type: BLOOD SPECIMENOrdering Facility: [facility] Address: [address] [place] [address] Result Comment: Renate mated Glomerular Filtration Rate (eGFR) is calculated using the 2020 CKD-EPI creatinine equation. This equation utilizes serum creatinine, sex, and age as parameters. The creatinine assay has traceable calibration to isotope dilution-mass spectrometry. Refer to KDIGO guidelines for clinical interpretation. In patients with unstable renal function, e.g. those with acute kidney injury, the eGFR may not accurately reflect actual GFR. Performed By: #### 2 4323-8 ####[facility]ITALWNCLIA [id number] [place] [address] [place] Glucose [Mass/Vol] 101 mg/dL High 74-99 [facility] Comment on above: Order Comment: Vanna benítez Type: BLOOD SPECIMENOrdering Facility: [facility] Address: [address] [place] [address] Result Comment: The [place] Diabetes Association (ADA) provides guidance for cutoff values for fasting glucose and random glucose. The ADA defines fasting as no caloric intake for at least 8 hours. Fasting plasma glucose results between 100 to 125 mg/dL indicate increased risk for diabetes (prediabetes). Fasting plasma glucose results greater than or equal to 126 mg/dL meet the criteria for diagnosis of diabetes. In the absence of unequivocal hyperglycemia, results should be confirmed by repeat testing. In a patient with classic symptoms of hyperglycemia or hyperglycemic crisis, random plasma glucose results greater than or equal to 200 mg/dL meet the criteria for diagnosis of diabetes. Reference: Standards of Medical Care in Diabetes 2016, [place] [employer]. Diabetes Care. 2016.39(Suppl 1). Performed By: #### 2 4323-8 ####[facility] [id number] [place] [address] [place] Potassium [Moles/Vol] 4.0 mmol/L Normal 3.7-5.1 [facility] Comment on above: Order Comment: Vanna benítez Type: BLOOD SPECIMENOrdering Facility: [facility] Address: [address] [place] [address] Performed By: #### 2 4323-8 ####[facility] ERNCLIA [id number] [place] [address] [place] Protein [Mass/Vol] 7.1 g/dL Normal 6.3-8.0 [facility] Comment on above: Order Comment: Speci men Type: BLOOD SPECIMENOrdering Facility: [facility] Address: Formerly named [facility] [place] [address] Performed By: #### 2 4323-8 ####[facility] [id number] [place] [address] [place] Sodium [Moles/Vol] 137 mmol/L Normal 136-144 [facility] Comment on above: Order Comment: Speci men Type: BLOOD SPECIMENOrdering Facility: [facility] Address: [address] [place] [address] [place] [address] Performed By: #### 2 4323-8 ####[facility] [id number] [address] [place] Urea nitrogen [Mass/Vol] 19 mg/dL Normal 9-24 [facility] Comment on above: Order Comment: Speci men Type: BLOOD SPECIMENOrdering Facility: [facility] Address: [address] [place] [address] Performed By: #### 2 4323-8 ####[facility] [id number] [address] [place] CNOVon 12-29-2023 CNOV Office Visit (LEEWS ) VICK ROMAN ([id number]) 1935 [place] Date Time Provider Department 12/29/23 10:00 AM [facility] During your visit today, we recorded the following information about you: Pulse Blood pressure Weight Height 62/minute 124/66 57.6 kg 1.6 m Stanley Kaiser MD 12/29/2023 10:37 AM Signed Patient presents with: 6 Month Exam HPI: Patient presents today for office visit for follow up. No concerns today. HLD: Continues on Atorvastatin 80 mg daily. No myalgias. Follows with Hem/Onc. They are following closely. No new areas noted. He feels well. Continues on asa 81 mg. Hx of AAA. Denies chest pain and shortness of breath. Smoking 1 PPD. Not interested in quitting. Has not followed recently with Dr Ortiz Latest Ref Rng 12/15/2023 WBC 3.70 - 11.00 k/uL 8.90 RBC 4.20 - 6.00 m/uL 4.50 Hemoglobin 13.0 - 17.0 g/dL 13.9 Hematocrit 39.0 - 51.0 % 41.6 MCV 80.0 - 100.0 fL 92.4 MCH 26.0 - 34.0 pg 30.9 MCHC 30.5 - 36.0 g/dL 33.4 RDW-CV 11.5 - 15.0 % 12.7 Platelet Count 150 - 400 k/uL 231 MPV 9.0 - 12.7 fL 9.9 Neut% % 57.3 Abs Neut (ANC) 1.45 - 7.50 k/uL 5.10 Lymph% % 30.0 Abs Lymph 1.00 - 4.00 k/uL 2.67 Mills% % 9.7 Abs Mills <0.87 k/uL 0.86 Eosin% % 1.9 Abs Eosin <0.46 k/uL 0.17 Baso% % 0.8 Abs Baso <0.11 k/uL 0.07 Immature Gran % % 0.3 IMMATURE GRANS (ABS) <0.10 k/uL 0.03 NRBC /100 WBC 0.0 Absolute nRBC <0.01 k/uL <0.01 DTYPE Auto Protein, Total 6.3 - 8.0 g/dL 7.2 Albumin 3.9 - 4.9 g/dL 4.3 Calcium 8.5 - 10.2 mg/dL 9.5 Bilirubin, Total 0.2 - 1.3 mg/dL 0.7 Alkaline Phosphatase 38 - 113 U/L 83 AST 14 - 40 U/L 16 ALT 10 - 54 U/L 17 Glucose 74 - 99 mg/dL 102 (H) BUN 9 - 24 mg/dL 20 Creatinine 0.73 - 1.22 mg/dL 0.83 Sodium 136 - 144 mmol/L 139 Potassium 3.7 - 5.1 mmol/L 4.3 Chloride 98 - 107 mmol/L 103 CO2 22 - 30 mmol/L 28 Anion Gap 8 - 15 mmol/L 8 eGFR >=60 mL/min/1.73m? 85 Hemoglobin A1C 4.3 - 5.6 % 5.7 (H) Estimated Average Glucose mg/dL 117 LD 135 - 225 U/L 141 Legend: (H) High MEDICATIONS: Current Outpatient Medications Medication Sig atorvastatin (LIPITOR) 80 mg tablet Take 1 tablet by mouth once daily. aspirin 81 mg cap Take 1 tablet by mouth once daily. No current facility-administered medications for this visit. ALLERGIES: ALLERGIES No Known Allergies PAST MEDICAL HISTORY No date: Abdominal aortic aneurysm (HCC) 11/20/2022: Essential (primary) hypertension 1992, 2000: Lymphoma in remission (HCC) Comment: had radiation tx and chemo PAST SURGICAL HISTORY 04-10-13: COLECTOMY PRTL W/COLOPROCTOSTOMY Comment: Colonoscopy 07/04/17: COLONOSCOPY 02/22/2013: COLONOSCOPY FLX DX W/COLLJ SPEC WHEN PFRMD Comment: Colonoscopy 04/27/14: COLONOSCOPY VIA STOMA W OR W/O BRS/WSH No date: PAST SURGICAL HISTORY OF Comment: lymph node biopsy 03/07/13: PROCTOSGMDSC RGD DX W/WO COLLJ SPEC BR/WA SPX Comment: Rigid sigmoidoscopy FAMILY HISTORY Problem Relation Age of Onset Cancer Mother unknown type, at age 31 other (possible overdose [Other]) Father age 61 No Known Problems Sister No Known Problems Sister No Known Problems Sister No Known Problems Brother Heart Brother Social History Tobacco Use Smoking status: Every Day Packs/day: 1.00 Years: 77.00 Additional pack years: 0.00 Total pack years: 77.00 Types: Cigarettes Smokeless tobacco: Never Vaping Use Vaping Use: Never used Substance Use Topics Alcohol use: No Drug use: No Reviewed current medications, allergies, past medical history, surgical history, family history and social history today. REVIEW OF SYSTEMS No falls. Still very active. No new memory issues. All other reviewed and negative other than HPI. HEALTH MAINTENANCE: Reviewed health maintenance issues today and recommended the following in detail. Covid-19 Vaccine(1) Never done Pneumococcal Vaccine: 65+(1 of 2 - PCV) Never done Depression Screening Never done Anxiety Screening Never done DTaP,Tdap,Td Vaccine(1 - Tdap) Never done Shingrix Vaccine(1 of 2) Never done VITALS: BP 124/66 Pulse 62 Ht 160 cm (5' 3) Wt 57.6 kg (127 lb) SpO2 96% BMI 22.50 kg/m? Last 4 Encounter Wt Readings: Date: Wt: 12/29/2023 57.6 kg (127 lb) 12/15/2023 58.1 kg (128 lb) 09/22/2023 58.5 kg (129 lb) 08/30/2023 59.9 kg (132 lb) PHYSICAL EXAMINATION: General appearance: Well appearing, [...] sounds normal. No masses, organomegaly Extremities: No deformities (more content not included)... [facility] ([id number]) 1935 M Date Time Provider Department 12/16/23 [facility] During your visit today, we recorded the following information about you: Stanley Kaiser MD 12/16/2023 8:24 AM Signed Let him know his average sugars are stable-(hga1c) Becky Aly MA 12/16/2023 10:46 AM Signed Patient informed and verbalized understanding. Becky Aly MA Allergies As of Date: 12/16/2023 (No Known Allergies) Date Reviewed: 12/15/2023 Reviewed by: Juanito Rushing MA - Fully Assessed Reason for Visit: Results [95] Prescriptions as of 12/16/2023 - atorvastatin (LIPITOR) 80 mg tablet Take 1 tablet by mouth once daily. - aspirin 81 mg cap Take 1 tablet by mouth once daily. Meds Comments as of 05/30/2013: No Rx, routine supplement or otc Problem List As Of Date 12/16/2023 Noted Resolved Lymphoma [C85.90] 10/24/2012 Colon polyp [K63.5] 03/02/2013 Benign neoplasm of colon [D12.6] 04/27/2014 04/27/2014 Abdominal aortic aneurysm (AAA) (HCC) [I71.40] 07/02/2022 Abdominal pain [R10.9] 06/26/2022 Altered bowel function [R19.8] 11/20/2022 12/25/2022 Essential (primary) hypertension [I10] 11/20/2022 History of colectomy [Z90.49] 11/20/2022 History of colonic polyps [Z86.010] 11/20/2022 12/25/2022 Skin lesion [L98.9] 11/20/2022 12/25/2022 Tobacco user [Z72.0] 11/20/2022 Prediabetes [R73.03] 06/18/2023 History of lymphoma [Z85.72] 06/30/2023 Encounter Status:Closed by BECKY ALY on 12/16/23 Normal [facility] CBC W Auto Differential pane l (Bld)on 12-15-2023 Basophils (Bld) [#/Vol] 0.07 10*3/uL Normal <0.11 [facility] Comment on above: Order Comment: Speci men Type: BLOOD SPECIMENOrdering Facility: [facility] Address: [address] [place] [address] Performed By: #### 5 7021-8 ####[facility] [id number] [place] [address] [place] Basophils/100 WBC (Bld) 0.8 % Normal [facility] Comment on above: Order Comment: Speci men Type: BLOOD SPECIMENOrdering Facility: [facility] Address: [address] [place] [address] Performed By: #### 5 7021-8 ####[facility] [id number] [place] [address] [place] Differential cell count method Nom (Bld) Auto Normal [facility] Comment on above: Order Comment: Speci men Type: BLOOD SPECIMENOrdering Facility: [facility] Address: [address] [place] [address] Performed By: #### 5 7021-8 ####[facility] [id number] [place] [address] [place] Eosinophils (Bld) [#/Vol] 0.17 10*3/uL Normal <0.46 [facility] Comment on above: Order Comment: Speci men Type: BLOOD SPECIMENOrdering Facility: [facility] Address: [address] [place] [address] Performed By: #### 5 7021-8 ####[facility] [id number] [place] [address] [place] Eosinophils/100 WBC (Bld) 1.9 % Normal [facility] Comment on above: Order Comment: Speci men Type: BLOOD SPECIMENOrdering Facility: [facility] Address: [address] [place] [address] Performed By: #### 5 7021-8 ####[facility]NCS[facility] [id number] [place] [address] [place] Erythrocyte distribution width (RBC) [Ratio] 12.7 % Normal 11.5-15.0 [facility] Comment on above: Order Comment: Speci men Type: BLOOD SPECIMENOrdering Facility: [facility] Address: [address] [place] [address] Performed By: #### 5 7021-8 ####[facility] CASSANDRALIA [id number] [place] [address] [place] Hematocrit (Bld) [Volume fraction] 41.6 % Normal 39.0-51.0 [facility] Comment on above: Order Comment: Speci men Type: BLOOD SPECIMENOrdering Facility: [facility] Address: [address] [place] [address] Performed By: #### 5 7021-8 ####[facility] ERNCLIA [id number] [place] [address] [place] Hemoglobin (Bld) [Mass/Vol] 13.9 g/dL Normal 13.0-17.0 [facility] Comment on above: Order Comment: Speci men Type: BLOOD SPECIMENOrdering Facility: [facility] Address: [address] [place] [address] Performed By: #### 5 7021-8 ####[facility] [id number] [place] [address] [place] Immature granulocytes (Bld) [#/Vol] 0.03 10*3/uL Normal <0.10 [facility] Comment on above: Order Comment: Speci men Type: BLOOD SPECIMENOrdering Facility: [facility] Address: [address] [place] [address] Performed By: #### 5 7021-8 ####[facility] DONNAROWESVILLENCLIA [id number] [place] [address] [place] Immature granulocytes/100 WBC (Bld) 0.3 % Normal [facility] Comment on above: Order Comment: Speci men Type: BLOOD SPECIMENOrdering Facility: [facility] Address: [address] [place] [address] Performed By: #### 5 7021-8 ####[facility] [id number] [place] [address] [place] Lymphocytes (Bld) [#/Vol] 2.67 10*3/uL Normal 1.00-4.00 [facility] Comment on above: Order Comment: Speci men Type: BLOOD SPECIMENOrdering Facility: [facility] Address: [address] [place] [address] Performed By: #### 5 7021-8 ####[facility] [id number] [place] [address] [place] Lymphocytes/100 WBC (Bld) 30.0 % Normal [facility] Comment on above: Order Comment: Speci men Type: BLOOD SPECIMENOrdering Facility: [facility] Address: [address] [place] [address] Performed By: #### 5 7021-8 ####[facility] [id number] [address] [place] MCH (RBC) [Entitic mass] 30.9 pg Normal 26.0-34.0 [facility] Comment on above: Order Comment: Speci men Type: BLOOD SPECIMENOrdering Facility: [facility] Address: [address] [place] [address] Performed By: #### 5 7021-8 ####[facility] [id number] [place] [address] [place] MCHC (RBC) [Mass/Vol] 33.4 g/dL Normal 30.5-36.0 [facility] Comment on above: Order Comment: Speci men Type: BLOOD SPECIMENOrdering Facility: [facility] Address: [address] [place] [address] Performed By: #### 5 7021-8 ####[facility] ERNCLIA [id number] [place] [address] [place] MCV (RBC) [Entitic vol] 92.4 fL Normal 80.0-100.0 [facility] Comment on above: Order Comment: Speci men Type: BLOOD SPECIMENOrdering Facility: [facility] Address: [address] [place] [address] Performed By: #### 5 7021-8 ####[facility] [id number] [place] [address] [place] Monocytes (Bld) [#/Vol] 0.86 10*3/uL Normal <0.87 [facility] Comment on above: Order Comment: Speci men Type: BLOOD SPECIMENOrdering Facility: [facility] Address: [address] [place] [address] Performed By: #### 5 7021-8 ####[facility] [id number] [place] [address] [place] Monocytes/100 WBC (Bld) 9.7 % Normal [facility] Comment on above: Order Comment: Speci men Type: BLOOD SPECIMENOrdering Facility: [facility] Address: [address] [place] [address] Performed By: #### 5 7021-8 ####[facility] [id number] [place] [address] [place] Neutrophils (Bld) [#/Vol] 5.10 10*3/uL Normal 1.45-7.50 [facility] Comment on above: Order Comment: Speci men Type: BLOOD SPECIMENOrdering Facility: [facility] Address: [address] [place] [address] Performed By: #### 5 7021-8 ####[facility] [id number] [place] [address] [place] Neutrophils/100 WBC (Bld) 57.3 % Normal [facility] Comment on above: Order Comment: Speci men Type: BLOOD SPECIMENOrdering Facility: [facility] Address: [address] [place] [address] Performed By: #### 5 7021-8 ####[facility] DONNAWNCLIA [id number] [place] [address] [place] Nucleated RBC (Bld) [#/Vol] 10*3/uL Normal <0.01 [facility] Comment on above: Order Comment: Speci men Type: BLOOD SPECIMENOrdering Facility: [facility] Address: [address] [place] [address] Performed By: #### 5 7021-8 ####[facility] ERNCLIA [id number] [place] [address] [place] Nucleated RBC/100 WBC (Bld) [Ratio] 0.0 /100 WBC Normal [facility] Comment on above: Order Comment: Speci men Type: BLOOD SPECIMENOrdering Facility: [facility] Address: [address] [place] [address] Performed By: #### 5 7021-8 ####[facility] ERNCLIA [id number] [place] [address] [place] Platelet mean volume (Bld) [Entitic vol] 9.9 fL Normal 9.0-12.7 [facility] Comment on above: Order Comment: Speci men Type: BLOOD SPECIMENOrdering Facility: [facility] Address: [address] [place] [address] Performed By: #### 5 7021-8 ####[facility] ERNCLIA [id number] [place] [address] [place] Platelets (Bld) [#/Vol] 231 10*3/uL Normal 150-400 [facility] Comment on above: Order Comment: Speci men Type: BLOOD SPECIMENOrdering Facility: [facility] Address: [address] [place] [address] Performed By: #### 5 7021-8 ####[facility] [id number] [place] [address] [place] RBC (Bld) [#/Vol] 4.50 10*6/uL Normal 4.20-6.00 [facility] Comment on above: Order Comment: Speci men Type: BLOOD SPECIMENOrdering Facility: [facility] Address: [address] [place] [address] Performed By: #### 5 7021-8 ####[facility] ERNCLIA [id number] [place] [address] [place] WBC (Bld) [#/Vol] 8.90 10*3/uL Normal 3.70-11.00 [facility] Comment on above: Order Comment: Speci men Type: BLOOD SPECIMENOrdering Facility: [facility] Address: [address] [place] [address] Performed By: #### 5 7021-8 ####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 HPI: The patient is an 88-year-old male with a past medical history as outlined below. Diagnosed with lymphoma in 1992 when presented with left groin adenopathy. Received radiation. Recurred 2000 with right groin adenopathy. He didn't seek medical attention right away and when did required chemotherapy (R-CHOP x6) followed by radiation. Last seen here for follow up 05/06/2004 prior to recent recurrence. 5-6 weeks prior to presentation, noticed a hard lump posterior left cervical area. CT Neck 06/18/2023: Irregular hyperattenuating, likely enhancing soft tissue with infiltrative margins deep to the LEFT sternocleidomastoid muscle, posterior to the LEFT digastric muscle, and anterior to the LEFT trapezius muscle with possible intramuscular component along the deep surface of the sternocleidomastoid muscle measuring approximately 4.5 x 1.9 x 5.1 cm (transaxial long axis by short axis by CC oblique; 5:62 and 7:91). 1.1 x 1.1 cm well-circumscribed lesion within the skin and subcutaneous tissue of the RIGHT posterior neck, likely an epidermoid inclusion cyst (5:62). Suprahyoid Neck: Nasopharynx and oropharynx appear grossly normal. Parapharyngeal tissue planes are preserved. Oral cavity and floor of mouth appear normal within constraints of artifact from dental amalgam. Lumber Tallier spaces appear normal. Infrahyoid Neck: Hypopharynx, larynx, and imaged infraglottic trachea appear grossly normal. Imaged upper esophagus is unremarkable. Lymph nodes: No cervical lymphadenopathy by size, number or morphologic criteria. Small nonspecific lymph nodes are scattered throughout the neck. Major salivary glands: Parotid and submandibular spaces are unremarkable. Thyroid gland: Thyroid gland is homogeneous without evidence of discrete nodule. Carotid space: Patent bilateral extracranial carotid and jugular systems. Severe narrowing of the LEFT internal jugular vein beginning in the LEFT infratemporal fossa. The stylomastoid foramen. Intracranial contents: No abnormal intracranial enhancement, mass effect, or hydrocephalus. Remote LEFT caudate head infarct. Orbits, Face and Skull Base: Focal radiopacity along the LEFT medial canthus. Postoperative changes in the bilateral globes. Orbital soft tissue planes are otherwise preserved. Paranasal sinuses are clear. Mastoid air cells and middle ear cavities are clear. No evidence of an osteolytic or osteoblastic process in the skull base. Bones: Diffuse osteopenia, likely age related. No suspicious osseous lesions in the imaged calvarium, skull base and spine. Normal cervicothoracic alignment. Multilevel mild spinal canal and multilevel up to moderate neural foraminal degenerative changes. . Temporomandibular joints are maintained. Lungs: Imaged lung apices are clear of focal consolidation or mass. Upper lobe moderate centrilobular emphysematous changes. Was referred to Dr. Whyte. Underwent FNA of left neck mass on 07/19/2023. 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 Comment demonstrated that the flow cytometry revealed the aspirate material was B-cell lymphoma that was CD10 positive. The immunophenotype suggested follicular center origin. AE1-3 (AE1/AE3/PCK26) negative CD3 (PS1) negative CD5 (SP10) negative CD10 (56C6) positive CD15 (MMA) negative CD20 (L26) positive CD23 (1B12) negative CD30 (Ramu-H2) negative CD43 (L60) positive, focal CD45 (RP2/18) positive CD79a (11E3) positive CD138 (B-A38) negative BCL-2 (bcl-2/100/D5) positive BCL-6 (SO154M/A8) negative Cyclin D1/BCL-1 (SP4) negative MUM1 (MRQ-43) negative C-MYC (Y69) negative [place] (polyclonal) negative Lambda (polyclonal) negative P53 (DO-7) negative, null pattern Ki-67 (30-9) positive, 20% Per initial office visit: He feels well in general. No trouble with swallowing. No neck pain. Appetite has been normal. No constitutional symptoms of night sweats or weight loss. Had biopsy iliac lesion. Path c/w low grade follicular lymphoma. Presents for ongoing oncologic management. Interim history: He offers no complaints today. 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 Denies MS pain. No constitutional symptoms. PAST MEDICAL HISTORY No date: Abdominal aortic aneurysm (HCC) 11/20/2022: Essential (primary) hypertension 1992, 2000: Lymphoma in remission (HCC) Comment: had radiation tx and chemo PAST SURGICAL HISTORY 04-10-13: COLECTOMY P (more content not included)... Normal [facility] Comprehensive metabolic 2000 panelon 12-15-2023 Albumin [Mass/Vol] 4.3 g/dL Normal 3.9-4.9 [facility] Comment on above: Order Comment: Speci men Type: BLOOD SPECIMENOrdering Facility: [facility] Address: [address] [place] [address] Performed By: #### 2 532-0, 19411-8 ####[facility] DAVID MANJINDERDEVIA [id number] [place] [address] [place] ALP [Catalytic activity/Vol] 83 U/L Normal 38-113 [facility] Comment on above: Order Comment: Speci men Type: BLOOD SPECIMENOrdering Facility: [facility] Address: [address] [place] [address] Performed By: #### 2 532-0, 78055-8 ####[facility] DONNAROWESVILLEVIKTORIYA [id number] [place] [address] [place] ALT [Catalytic activity/Vol] 17 U/L Normal 10-54 [facility] Comment on above: Order Comment: Speci men Type: BLOOD SPECIMENOrdering Facility: [facility] Address: [address] [place] [address] Performed By: #### 2 532-0, 60266-6 ####[facility] ERDEVIA [id number] [place] [address] [place] Anion gap [Moles/Vol] 8 mmol/L Normal 8-15 [facility] Comment on above: Order Comment: Speci men Type: BLOOD SPECIMENOrdering Facility: [facility] Address: [address] [place] [address] Performed By: #### 2 532-0, 10947-4 ####[facility] ERADAMLIA [id number] [place] [address] [place] AST [Catalytic activity/Vol] 16 U/L Normal 14-40 [facility] Comment on above: Order Comment: Speci men Type: BLOOD SPECIMENOrdering Facility: [facility] Address: [address] [place] [address] Performed By: #### 2 532-0, 64776-2 ####[facility] DAVID MILLTOWNCLIA [id number] [place] [address] [place] Bilirubin [Mass/Vol] 0.7 mg/dL Normal 0.2-1.3 [facility] Comment on above: Order Comment: Speci men Type: BLOOD SPECIMENOrdering Facility: [facility] Address: [address] [place] [address] Performed By: #### 2 532-0, 06742-0 ####[facility] MILLWNCLIA [id number] [place] [address] [place] Calcium [Mass/Vol] 9.5 mg/dL Normal 8.5-10.2 [facility] Comment on above: Order Comment: Speci men Type: BLOOD SPECIMENOrdering Facility: [facility] Address: [address] [place] [address] Performed By: #### 2 532-0, 92532-5 ####[facility] ERADAMLIA [id number] [place] [address] [place] Chloride [Moles/Vol] 103 mmol/L Normal 98-107 [facility] Comment on above: Order Comment: Speci men Type: BLOOD SPECIMENOrdering Facility: [facility] Address: [address] [place] [address] Performed By: #### 2 532-0, 10111-2 ####[facility] MILLTOWNCLIA [id number] [place] [address] [place] CO2 [Moles/Vol] 28 mmol/L Normal 22-30 [facility] Comment on above: Order Comment: Speci men Type: BLOOD SPECIMENOrdering Facility: [facility] Address: [address] [place] [address] Performed By: #### 2 532-0, 55431-2 ####[facility] MILLYOLAWNCLIA [id number] [place] [address] [place] Creatinine [Mass/Vol] 0.83 mg/dL Normal 0.73-1.22 [facility] Comment on above: Order Comment: Vanna benítez Type: BLOOD SPECIMENOrdering Facility: [facility] Address: [address] [place] [address] Performed By: #### 2 532-0, 78789-4 ####[facility] [id number] [place] [address] [place] Creatinine and Glomerular filtration rate.predicted panel (S/P/Bld) 85 mL/min/1.73m??? Normal >=60 [facility] Comment on above: Order Comment: Vanna benítez Type: BLOOD SPECIMENOrdering Facility: [facility] Address: [address] [place] [address] Result Comment: Renate mated Glomerular Filtration Rate (eGFR) is calculated using the 2020 CKD-EPI creatinine equation. This equation utilizes serum creatinine, sex, and age as parameters. The creatinine assay has traceable calibration to isotope dilution-mass spectrometry. Refer to KDIGO guidelines for clinical interpretation. In patients with unstable renal function, e.g. those with acute kidney injury, the eGFR may not accurately reflect actual GFR. Performed By: #### 2 532-0, 86890-7 ####[facility] ERNCLI [id number] [place] [address] [place] Glucose [Mass/Vol] 102 mg/dL High 74-99 [facility] Comment on above: Order Comment: Vanna benítez Type: BLOOD SPECIMENOrdering Facility: [facility] Address: [address] [place] [address] Result Comment: The [place] Diabetes Association (ADA) provides guidance for cutoff values for fasting glucose and random glucose. The ADA defines fasting as no caloric intake for at least 8 hours. Fasting plasma glucose results between 100 to 125 mg/dL indicate increased risk for diabetes (prediabetes). Fasting plasma glucose results greater than or equal to 126 mg/dL meet the criteria for diagnosis of diabetes. In the absence of unequivocal hyperglycemia, results should be confirmed by repeat testing. In a patient with classic symptoms of hyperglycemia or hyperglycemic crisis, random plasma glucose results greater than or equal to 200 mg/dL meet the criteria for diagnosis of diabetes. Reference: Standards of Medical Care in Diabetes 2016, [place] Diabetes Association. Diabetes Care. 2016.39(Suppl 1). Performed By: #### 2 532-0, 64275-1 ####[facility] FIDENCIO [id number] [place] [address] [place] Potassium [Moles/Vol] 4.3 mmol/L Normal 3.7-5.1 [facility] Comment on above: Order Comment: Nicolei men Type: BLOOD SPECIMENOrdering Facility: [facility] Address: [address] [place] [address] Performed By: #### 2 532-0, 38938-4 ####[facility] ERVIKTORIYA [id number] [place] [address] [place] Protein [Mass/Vol] 7.2 g/dL Normal 6.3-8.0 [facility] Comment on above: Order Comment: Nicolei jackelin Type: BLOOD SPECIMENOrdering Facility: [facility] Address: [address] [place] [address] Performed By: #### 2 532-0, 72012-8 ####[facility] ERVIKTORIYA [id number] [place] [address] [place] Sodium [Moles/Vol] 139 mmol/L Normal 136-144 [facility] Comment on above: Order Comment: Speci men Type: BLOOD SPECIMENOrdering Facility: [facility] Address: [address] [place] [address] Performed By: #### 2 532-0, 44684-9 ####[facility] ERADAMLIA [id number] [place] [address] [place] Urea nitrogen [Mass/Vol] 20 mg/dL Normal 9-24 [facility] Comment on above: Order Comment: Vanna benítez Type: BLOOD SPECIMENOrdering Facility: [facility] Address: [address] [place] [address] Performed By: #### 2 532-0, 91454-3 ####[facility] DAVID THOMPSONROWESVILLEVIKTORIYA [id number] [place] [address] [place] HbA1c (Bld)on 12-15-2023 Average glucose Estimated from glycated hemoglobin (Bld) [Mass/Vol] 117 mg/dL Normal [facility] Comment on above: Order Comment: Vanna benítez Type: BLOOD SPECIMENOrdering Facility: [facility] Address: [address] [place] [address] Result Comment: eAG: (Estimated average glucose) is a calculated value from HgbA1c and is loan representative of the average blood glucose level in the last 2-3 month period. Performed By: #### 5 5454-3 ####[facility] LABCLIA [id number] [place] [address] [place] HbA1c (Bld) [Mass fraction] 5.7 % High 4.3-5.6 [facility] Comment on above: Order Comment: Vanna benítez Type: BLOOD SPECIMENOrdering Facility: [facility] Address: [address] [place] [address] Result Comment: [place] Diabetes Association guidelines indicate that patients with HgbA1c in the range 5.7-6.4% are at increased risk for development of diabetes, and intervention by lifestyle modification may be beneficial. HgbA1c greater or equal to 6.5% is considered diagnostic of diabetes. Performed By: #### 5 5454-3 ####[facility] LABCLIA [id number] [place] [address] [place] LDH SerPl-cCncon 12-15-2023 LDH [Catalytic activity/Vol] 141 U/L Normal 135-225 [facility] Comment on above: Order Comment: Vanna benítez Type: BLOOD SPECIMENOrdering Facility: [facility] Address: [address] [place] [address] Performed By: #### 2 532-0, 24965-3 ####[facility] DAVID THOMPSONROWESVILLEVIKTORIYA [id number] [place] [address] [facility] CNOVSPon 09-22-2023 CNOVSP Visit (SP) Office ([facility]MAWS) VICK ROMAN ([id number]) 1935 M Date Time Provider Department 09/22/23 9:10 AM TOMAS FONTENOT During your visit today, we recorded the following information about you: Temperature Pulse Blood pressure Weight 97.4 degrees 58/minute 146/78 58.5 kg Tomas Fontenot DO 09/22/2023 12:48 PM Signed 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 HPI: The patient is an 88-year-old male with a past medical history as outlined below. Diagnosed with lymphoma in 1992 when presented with left groin adenopathy. Received radiation. Recurred 2000 with right groin adenopathy. He didn't seek medical attention right away and when did required chemotherapy (R-CHOP x6) followed by radiation. Last seen here for follow up 05/06/2004 prior to recent recurrence. 5-6 weeks prior to presentation, noticed a hard lump posterior left cervical area. CT Neck 06/18/2023: Irregular hyperattenuating, likely enhancing soft tissue with infiltrative margins deep to the LEFT sternocleidomastoid muscle, posterior to the LEFT digastric muscle, and anterior to the LEFT trapezius muscle with possible intramuscular component along the deep surface of the sternocleidomastoid muscle measuring approximately 4.5 x 1.9 x 5.1 cm (transaxial long axis by short axis by CC oblique; 5:62 and 7:91). 1.1 x 1.1 cm well-circumscribed lesion within the skin and subcutaneous tissue of the RIGHT posterior neck, likely an epidermoid inclusion cyst (5:62). Suprahyoid Neck: Nasopharynx and oropharynx appear grossly normal. Parapharyngeal tissue planes are preserved. Oral cavity and floor of mouth appear normal within constraints of artifact from dental amalgam. Lumber Tallier spaces appear normal. Infrahyoid Neck: Hypopharynx, larynx, and imaged infraglottic trachea appear grossly normal. Imaged upper esophagus is unremarkable. Lymph nodes: No cervical lymphadenopathy by size, number or morphologic criteria. Small nonspecific lymph nodes are scattered throughout the neck. Major salivary glands: Parotid and submandibular spaces are unremarkable. Thyroid gland: Thyroid gland is homogeneous without evidence of discrete nodule. Carotid space: Patent bilateral extracranial carotid and jugular systems. Severe narrowing of the LEFT internal jugular vein beginning in the LEFT infratemporal fossa. The stylomastoid foramen. Intracranial contents: No abnormal intracranial enhancement, mass effect, or hydrocephalus. Remote LEFT caudate head infarct. Orbits, Face and Skull Base: Focal radiopacity along the LEFT medial canthus. Postoperative changes in the bilateral globes. Orbital soft tissue planes are otherwise preserved. Paranasal sinuses are clear. Mastoid air cells and middle ear cavities are clear. No evidence of an osteolytic or osteoblastic process in the skull base. Bones: Diffuse osteopenia, likely age related. No suspicious osseous lesions in the imaged calvarium, skull base and spine. Normal cervicothoracic alignment. Multilevel mild spinal canal and multilevel up to moderate neural foraminal degenerative changes. . Temporomandibular joints are maintained. Lungs: Imaged lung apices are clear of focal consolidation or mass. Upper lobe moderate centrilobular emphysematous changes. Was referred to Dr. Whyte. Underwent FNA of left neck mass on 07/19/2023. 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 Comment demonstrated that the flow cytometry revealed the aspirate material was B-cell lymphoma that was CD10 positive. The immunophenotype suggested follicular center origin. AE1-3 (AE1/AE3/PCK26) negative CD3 (PS1) negative CD5 (SP10) negative CD10 (56C6) positive CD15 (MMA) negative CD20 (L26) positive CD23 (1B12) negative CD30 (Ramu-H2) negative CD43 (L60) positive, focal CD45 (RP2/18) positive CD79a (11E3) positive CD138 (B-A38) negative BCL-2 (bcl-2/100/D5) positive BCL-6 (HL043E/A8) negative Cyclin D1/BCL-1 (SP4) negative MUM1 (MRQ-43) negative C-MYC (Y69) negative [place] (polyclonal) negative Lambda (polyclonal) negative P53 (DO-7) negative, null pattern Ki-67 (30-9) positive, 20% Per initial office visit: He feels well in general. No trouble with swallowing. No neck pain. Appetite has been normal. No constitutional symptoms of night sweats or weight loss. Presents for ongoing oncologic management. Interim history: He offers no complaints today. He has been active doing yard work. He has no symptoms from the enlarged left cervical lymph node. Had biopsy of iliac bone lesion. PAST MEDICAL HISTORY Diagnosis Date Abdominal aortic aneurysm (HCC) Essential (primary) hypertension 11/20/2022 Lymphoma in remission (HCC) 1992, 2000 had radiation tx and chemo PAST SURGICAL HISTORY Procedure Laterality Date COLECTOM (more content not included)... Normal [facility] CT BX RIB/PELV/CONTRERAS/SPINE P [facility] 09-09-2023 CT BX RIB/PELV/CONTRERAS/SPINE PROC * * *Final Report* * * DATE OF EXAM: Sep 09 2023 10:51AM [facility] - CT BX RIB/PELV/CONTRERAS/SPINE PROC / PROCEDURE REASON: Established Patient * * * * Physician Interpretation * * * * PROCEDURE PERFORMED: CT GUIDED RIGHT ILIAC BONE LESION BIOPSY INDICATION FOR PROCEDURE: 88 years old Male with 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 presenting for biopsy of FDG avid RIGHT posterior iliac bone lesion. STAFF RADIOLOGIST: Dr. Gavin Troy CONSENT: The risks, benefits, treatment options, potential complications and personnel involved were discussed with the patient. All questions were answered and consent was obtained. The patient indicated he was willing to proceed. The staff physician personally verified consent. TIME OUT: A time out was performed immediately prior to procedure start with the nursing and interventional team, correctly identifying the patient name, date of , procedure, anatomy (including marking of site and side), patient position, procedure consent form, relevant diagnostic and radiology test results, antibiotic administration (when indicated), safety precautions, and procedure-specific equipment needs. RESULT: PROCEDURE: Patient was placed in a prone position. After performing the time out, the RIGHT posterior iliac vague lesion corresponding with the area of FDG uptake was localized under CT. RIGHT posterior sacroiliac region was prepped and draped in the usual sterile fashion. Under direct CT guidance, 1 pass was made into the lesion using a 11-gauge On-control bone biopsy needle. After specimens were obtained, needle was removed and hemostasis was achieved using light manual compression. The patient was transferred to the biopsy recovery room in stable condition. ANESTHESIA/SEDATION: Conscious sedation was achieved using 0.5 mg of versed and 25 mcg of fentanyl intravenously. Local anesthesia was achieved utilizing 5 mL 1% lidocaine. START TIME/TIMEOUT TIME: 1014 END TIME: 1030 INTRA-SERVICE (SEDATION) TIME: 15 minutes PATIENT MONITORING: The staff physician personally supervised and directed an independent trained observer who assisted in monitoring the patient?s level of consciousness and physiological status throughout the procedure. COMPLICATIONS: Small hematoma at the biopsy site. SIGN-OUT DISCUSSION: Completed ESTIMATED BLOOD LOSS: None CONTRAST: None CT ABDOMEN AND PELVIS RADIATION DOSE: Dose-length product (DLP) = 196 mGy*cm. CT Dose Reduction Employed: Automated exposure control(AEC) and iterative recon SPECIMENS: 1 core biopsy specimen was placed in formalin and sent for surgical pathology. BIOPSY DEVICE: 11-gauge On-control core biopsy needle. IMPRESSION: CT guided RIGHT posterior iliac bone lesion biopsy as described. Manager Cosmetic: PHILLIP Transcribe Date/Time: Sep 09 2023 2:15P Dictated by : GAVIN TROY DO This examination was interpreted and the report reviewed and electronically signed by: GAVIN TROY DO on Sep 09 2023 2:21PM EST [id number] [facility] HISTORY PHYSICALon HISTORY PHYSICAL HNO ID: [id number] Author: GAVIN TROY DO Service: Radiology Author Type: Physician Type: H&P Filed: 09/09/2023 09:59 Note Text: PROCEDURAL SEDATION HISTORY AND PHYSICAL EXAM SERVICE DATE: 09/09/2023 SERVICE TIME: 9:59 AM Subjective HPI: This is a 88 year old male who presents for RIGHT iliac bone lesion biopsy PAST ANESTHESIA HISTORY: No history of adverse event PAST MEDICAL HISTORY Diagnosis Date Abdominal aortic aneurysm (HCC) Essential (primary) hypertension 11/20/2022 Lymphoma in remission (HCC) 1992, 2000 had radiation tx and chemo PAST SURGICAL HISTORY Procedure Laterality Date COLECTOMY PRTL W/COLOPROCTOSTOMY 04-10-13 Colonoscopy COLONOSCOPY 07/04/17 COLONOSCOPY FLX DX W/COLLJ SPEC WHEN PFRMD 02/22/2013 Colonoscopy COLONOSCOPY VIA STOMA W OR W/O BRSH/WSH 04/27/14 PAST SURGICAL HISTORY OF lymph node biopsy PROCTOSGMDSC RGD DX W/WO COLLJ SPEC BR/WA SPX 03/07/13 Rigid sigmoidoscopy Prior to Admission medications as of 09/09/23 0804 Medication Sig Last Dose Taking atorvastatin (LIPITOR) 80 mg tablet Take 1 tablet by mouth once daily. 09/09/2023 at 0515 Yes aspirin 81 mg cap Take 1 tablet by mouth once daily. 09/09/2023 at 0515 Yes ALLERGIES No Known Allergies Objective PHYSICAL EXAM: The remainder of the physical exam is noncontributory. AIRWAY: Airway Visualization of Uvula: Yes Mouth opening greater than 2 fingerbreadths: Yes Neck Full Range of Motion: Yes LUNGS: Lungs clear to auscultation CARDIAC: Regular rhythm,Regular rate Assessment/Plan ASA Class: ASA Class:: Patient with mild systemic disease Active Problems: * No active hospital problems. * Resolved Problems: * No resolved hospital problems. * Medication and Non-Pharmacologic VTE Prophylaxis/Anticoagul ants VTE Prophylaxis: VTE prophylaxis appropriate Provisional Diagnosis/Treatment Plan: CT guided right iliac lesion biopsy SEDATION GOAL: Moderate SIGNATURE: Gavin Troy DO PATIENT NAME: Vick Roman DATE: September 09, 2023 TIME: 9:59 AM Normal [facility] NURSING PROGon 09-09-2023 NURSING PROG HNO ID: [id number] Author: PETER NEUMANN, RN Service: Nursing Author Type: Registered Nurse Type: Nursing Progress Note Filed: 09/09/2023 11:05 Note Text: On arrival to Phase II patient has hematoma to incision site on right buttocks. Dr. Troy aware and states to continue to monitor patient for bleeding. Normal [facility] PT panel Coag (PPP)on 2023 INR Coag (PPP) [Relative time] 1.0 {INR} Normal 0.9-1.3 [facility] Comment on above: Order Comment: Speci men Type: BLOOD SPECIMEN [facility] Address: [address] [place] [address] Result Comment: Sherry min K Antagonist (VKA) Therapeutic Range: INR 2 to 3 (Target INR of 2.5) Note: For patients treated with VKA drugs, such as warfarin, the [place] [employer] 2012 Guideline recommends a therapeutic INR range of 2 to 3 (target INR of 2.5). This recommendation includes high-risk patients with antiphospholipid syndrome with previous arterial or venous thromboembolism, current-generation mechanical or bioprosthetic aortic heart valve replacement. Note: Patients with mechanical aortic valve replacement and additional risk factors for thromboembolic events (atrial fibrillation, previous thromboembolism, LV dysfunction, hypercoagulable conditions) or an older generation mechanical AVR (i.e., ball in-Cage) or any mechanical MVR should have a INR therapeutic range of 2.5 to 3.5 (target INR of 3). Renee GH, et al. Chest 2012, 141:7S-47S Rolan RA, et al. [facility] 2017, 70: 252-289 Performed By: #### 3 4528-0 #### [facility] CLIA [id number] [address] [place] [address] [place] PT Coag (PPP) [Time] 11.2 s Normal 9.7-13.0 [facility] Comment on above: Order Comment: Vanna benítez Type: BLOOD SPECIMEN [facility] Address: [address] [place] [address] Performed By: #### 3 4528-0 #### [facility] CLIA [id number] [address] [place] [address] [place] SURGICAL PATHOLOGYon 024 CASE REPORT Normal [facility] Comment on above: Order Comment: Vanna benítez Type: TISSUE SPECIMEN [facility] Address: [address] [place] [address] Result Comment: Surg ical Pathology Report Case: [id number] Authorizing Provider: Gavin Troy DO, Collected: 09/09/2023 10:30 AM Ordering Location: [facility] Radiology Received: 09/09/2023 11:48 AM Pathologist: Seymour Hyde MD, PhD Specimen: Bone, Biopsy, right iliac bone biopsy Performed By: #### S #### [facility] CLIA [id number] [address] [place] [address] CLINICAL HISTORY Hx of Lymphoma. FDG avid RIGHT posterior iliac bone lesion. Normal [facility] Comment on above: Order Comment: Speci jackelin Type: TISSUE SPECIMEN [facility] Address: [address] [place] [address] Performed By: #### S #### [facility] CLIA [id number] [address] [place] [address] DIAGNOSIS COMMENT Normal [facility] Comment on above: Order Comment: Vanna benítez Type: TISSUE SPECIMEN [facility] Address: [address] [place] [address] Result Comment: The morphologic findings demonstrate bone marrow involvement by a low-grade follicular lymphoma. Areas of diffuse large B-cell lymphoma are not identified in the sampled material. Clinical correlation is suggested. Laboratory Developed Test (LDT) Disclaimer: Performance characteristics of immunohistochemical, immunofluorescent and chromogenic in-situ hybridization tests have been determined by the performing laboratory within [facility]???s [facility] Pathology and Laboratory Medicine Department ([facility], [facility], [facility], [facility], [facility], [facility], or [facility]) in a manner consistent with CLIA requirements. One or more of these tests have not been cleared or approved by the FDA. [facility] is regulated under CLIA as qualified to perform high-complexity testing. These tests are used for clinical purposes. They should not be regarded as investigational or for research. Positive and negative controls stain appropriately. Performed By: #### S #### [facility] CLIA [id number] [address] [place] [address] FINAL DIAGNOSIS Normal [facility] Comment on above: Order Comment: Vanna benítez Type: TISSUE SPECIMEN Ordering Facility: [facility] Address: [address] [place] [address] Result Comment: Bone , right iliac, biopsy: -Involved by low-grade follicular lymphoma (see comment) [facility] 09/17/2023 Performed By: #### S #### [facility] CLIA [id number] [address] [place] [address] [place] FINAL PERFORMING LAB Normal [facility] Comment on above: Order Comment: Specestella benítez Type: TISSUE SPECIMEN Ordering Facility: [facility] Address: [address] [place] [address] Result Comment: Diag nostic interpretation performed at [facility], [address] [place] [address] CLIA# [id number] Orientation And Mobility Specialist: Simone Gonsales M.D. Performed By: #### S #### [facility] CLIA [id number] [address] [place] [address] OF [place] GROSS DESCRIPTION A. Bone, Biopsy Normal [facility] Comment on above: Order Comment: Vanna benítez Type: TISSUE SPECIMEN Ordering Facility: [facility] Address: [address] [place] [address] Result Comment: Rece ived in formalin labeled bone, iliac, right biopsy is a cylindrical segment of landeros soft bone and hemorrhagic material measuring 2.5 x 1.6 x 0.3 cm. Totally submitted in cassette A1 following light decalcification. Gross examination performed at [facility], [address] [place] [address] CLIA# [id number] [facility] 09/09/23 3:34 PM Performed By: #### S #### [facility] CLIA [id number] [address] [place] [address] [place] MICROSCOPIC DESCRIPTION The histologic sections demonstrate a portion of bone and fragments of blood clot. The bone marrow contains trilineage hematopoiesis. There is an extensive paratrabecular and diffuse infiltrate of small lymphocytes with irregular nuclear contours. The infiltrate represents approximately 30% of total cellularity. Immunohistochemical stains demonstrate the atypical infiltrate to be positive for CD20, CD10, BCL6 and Bcl-2. CD3 positive cells are admixed. The atypical B-cell infiltrate is negative for MUM1 and cyclin D1. A Ki-67 stain is positive in approximately 10% of the lymphoid infiltrate while there are numerous positive cells in the areas of uninvolved hematopoiesis. Normal [facility] Comment on above: Order Comment: Speci men Type: TISSUE SPECIMEN Ordering Facility: [facility] Address: [address] [place] [address] Performed By: #### S #### [facility] CLIA [id number] [address] [place] [address] OF [facility] CNPNon 09-03-2023 CNPN Telephone (MEXR) VICK ROMAN ([id number]) 1935 M Date Time Provider Department 09/03/23 DENISE MCKENZIE During your visit today, we recorded the following information about you: Allergies As of Date: 09/03/2023 (No Known Allergies) Date Reviewed: 08/27/2023 Reviewed by: Veena Alvarenga Ma, HECTOR - Fully Assessed Reason for Visit: Appointment [186] Cmt: Pre procedure instructions for ct bx given. Provided pt with office number to call with any further questions. Prescriptions as of 06/30/2024 - atorvastatin (LIPITOR) 80 mg tablet Take 1 tablet by mouth once daily. - aspirin 81 mg cap Take 1 tablet by mouth once daily. Meds Comments as of 05/30/2013: No Rx, routine supplement or otc Problem List As Of Date 09/03/2023 Noted Resolved Lymphoma [C85.90] 10/24/2012 Colon polyp [K63.5] 03/02/2013 Benign neoplasm of colon [D12.6] 04/27/2014 04/27/2014 Abdominal aortic aneurysm (AAA) (HCC) [I71.40] 07/02/2022 Abdominal pain [R10.9] 06/26/2022 Altered bowel function [R19.8] 11/20/2022 12/25/2022 Essential (primary) hypertension [I10] 11/20/2022 History of colectomy [Z90.49] 11/20/2022 History of colonic polyps [Z86.0100] 11/20/2022 12/25/2022 Skin lesion [L98.9] 11/20/2022 12/25/2022 Tobacco user [Z72.0] 11/20/2022 Prediabetes [R73.03] 06/18/2023 History of lymphoma [Z85.72] 06/30/2023 Encounter Status:Closed by DENISE [facility] Telephone ([place]) VICK ROMAN ([id number]) 1935 M Date Time Provider Department 08/27/23 CARLOS RYAN During your visit today, we recorded the following information about you: Carlos Ryan 08/27/2023 9:22 AM Signed Received request for bone biopsy at [place]. Sending to radiologist for approval. Allergies As of Date: 08/27/2023 (No Known Allergies) Date Reviewed: 08/27/2023 Reviewed by: Veena Alvarenga Ma, HECTOR - Fully Assessed Reason for Visit: Scheduling [9021] Cmt: Bone Biopsy Prescriptions as of 03/16/2024 - atorvastatin (LIPITOR) 80 mg tablet Take 1 tablet by mouth once daily. - aspirin 81 mg cap Take 1 tablet by mouth once daily. Meds Comments as of 05/30/2013: No Rx, routine supplement or otc Problem List As Of Date 08/27/2023 Noted Resolved Lymphoma [C85.90] 10/24/2012 Colon polyp [K63.5] 03/02/2013 Benign neoplasm of colon [D12.6] 04/27/2014 04/27/2014 Abdominal aortic aneurysm (AAA) (HCC) [I71.40] 07/02/2022 Abdominal pain [R10.9] 06/26/2022 Altered bowel function [R19.8] 11/20/2022 12/25/2022 Essential (primary) hypertension [I10] 11/20/2022 History of colectomy [Z90.49] 11/20/2022 History of colonic polyps [Z86.0100] 11/20/2022 12/25/2022 Skin lesion [L98.9] 11/20/2022 12/25/2022 Tobacco user [Z72.0] 11/20/2022 Prediabetes [R73.03] 06/18/2023 History of lymphoma [Z85.72] 06/30/2023 Encounter Status:Closed by CARLOS RYAN on 03/16/24 [facility] NM PET/CT SKULL-THIGH INITon 08-24-2023 NM PET/CT SKULL-THIGH INIT * * *Final Report* * * DATE OF EXAM: Aug 24 2023 9:46AM MDP 0060 - NM PET/CT SKULL-THIGH INIT / PROCEDURE REASON: C82.91-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 INDICATION: Initial treatment strategy. TECHNIQUE: Radiopharmaceutical was administered IV followed about 60 minutes later by PET imaging from skull vertex to proximal thighs. Free breathing, low dose CT of the same body region was acquired without IV contrast for attenuation correction and anatomic localization. * CT Dose-Length Product (DLP): 341 mGy*cm * CT Dose Reduction Employed: Yes * Blood glucose (mg/dL): . * Radiopharmaceutical Dose: 7.1 mCi * Radiopharmaceutical: [id number] (FDG) COMPARISON: No previous FDG PET/CT available CORRELATION: 07/06/[address] report RESULT: REFERENCES: SUV reference values: * Blood pool (descending aorta) activity: SUVmax 2.2 * Background liver activity: SUVmax 3.9; SUVmean 2.9 Field Enumerator (topogram) images: No additional findings. Notes and limitations: * Standardized uptake values indicate the highest activity concentration (SUVmax) at a given location but can be variable and are not absolute. * Physiologic/non-neopla stic uptake is common in the brain, extraocular muscles, oral cavity, tonsils, salivary glands, vocal cords, myocardium, liver, GI tract, urinary tract, and bone marrow among others. Certain regions and organ systems can have more intense uptake, which could confound or obscure some pathology. * Unenhanced imaging is limited for the evaluation of some pathology and the acquired CT was not designed to produce or replace diagnostic CT scan quality. * PET-CT is often not sensitive for pulmonary nodules less than 8 mm. HEAD AND NECK: Imaged Head: No abnormal uptake. Neck and Lymph Nodes: Approximately 1.5 x 1.0 cm right palatine tonsil uptake with max SUV 16.2. Contralateral max SUV 6.6 with an underlying tonsilloliths noted. Approximately 1.6 x 1.9 x 2.5 cm conglomeration of uptake in the proximal most left sternocleidomastoid muscle on 3:135 with max SUV 11.3, corresponds to the infiltrating soft tissue density described on the referenced neck CT. Additional focal uptake in the right suboccipital region measuring approximately 1.1 cm on 3:109 with max SUV 8.9, favored to be physiologic, although underlying soft tissue lesion not entirely excluded.. Thyroid: No abnormal uptake. CHEST: Lungs and Airways: 1.9 x 1.0 cm patchy left lower lobe airspace opacity on 3:322 with max SUV 2.9. Additional scattered minimally avid opacities, and prominent upper lobe predominant centrilobular emphysema noted.. Pleura and Pericardium: No abnormal uptake. Cardiovascular: No abnormal uptake. Three-vessel coronary atherosclerosis. Mediastinum and Lymph Nodes: No abnormal uptake. ABDOMEN AND PELVIS: Hepatobiliary: No definite scattered subcentimeter hypodensities, favored to be benign process.. Spleen: No abnormal uptake. Pancreas: No abnormal uptake. Adrenals: No abnormal uptake. Urinary Tract: No abnormal uptake. GI Tract: No abnormal uptake, including a presumed colorectal anastomosis. Peritoneum: No abnormal uptake. Vasculature: Approximately 5.5 x 5.2 x 9.1 (craniocaudal dimension) infrarenal abdominal aortic aneurysm. Retroperitoneum and Lymph Nodes: No abnormal uptake. Pelvis: No abnormal uptake. Enlarged prostate. MUSCULOSKELETAL: Osseous: 1.9 x 1.3 cm right posteromedial ilium focal uptake on 3:48 with max SUV 10.9 and mild underlying sclerosis, highly suspicious for neoplastic process. Additional smaller adjacent foci noted. Heterogeneous curvilinear uptake in the left posterior rib cage approximately level of the seventh-eighth ribs suspicious for involvement. Degenerative changes. Soft Tissues: Approximately 2.5 cm length uptake in the musculature abutting the mid right humeral diaphysis on 3:270 with max SUV 14.1, suspicious for a neoplastic process. Nonspecific uptake in the musculature at the right paraspinous lumbosacral junction level IMPRESSION: HEAD/NECK: * 1.5 x 1.0 cm RIGHT palatine tonsil asymmetric uptake may be secondary to tonsillitis/reactive changes, although underlying neoplastic process (lymphoma or squamous cell carcinoma) needs to be excluded. Direct visualization/tissue sampling, as clinically indicated. ACTIONABLE RESULT * Focal uptake in the LEFT sternocleidomastoid muscle compatible with lymphomatous involvement.. CHEST: * No pathologic/FDG avid lymphadenopathy. * Scattered avid airspace opacities favored to be secondary to infectious/inflammator y process, although given the emphysematous changes, suggest follow-up imaging to exclude a n (more content not included)... Invalid Interpretation Code [facility] CBC W Auto Differential pane l (Bld)on 08-09-2023 Basophils (Bld) [#/Vol] 0.09 10*3/uL <0.11 k/uL [facility] Basophils/100 WBC (Bld) 1.1 % [facility] Differential cell count method Nom (Bld) Auto [facility] Eosinophils (Bld) [#/Vol] 0.37 10*3/uL <0.46 k/uL [facility] Eosinophils/100 WBC (Bld) 4.7 % [facility] Erythrocyte distribution width (RBC) [Ratio] 12.5 % 11.5 - 15.0 % [facility] Hematocrit (Bld) [Volume fraction] 42.6 % 39.0 - 51.0 % [facility] Hemoglobin (Bld) [Mass/Vol] 14.3 g/dL 13.0 - 17.0 g/dL [facility] Immature granulocytes (Bld) [#/Vol] <0.10 k/uL [facility] Immature granulocytes/100 WBC (Bld) 0.3 % [facility] Lymphocytes (Bld) [#/Vol] 3.01 10*3/uL 1.00 - 4.00 k/uL [facility] Lymphocytes/100 WBC (Bld) 37.9 % [facility] MCH (RBC) [Entitic mass] 31.1 pg 26.0 - 34.0 pg [facility] MCHC (RBC) [Mass/Vol] 33.6 g/dL 30.5 - 36.0 g/dL [facility] MCV (RBC) [Entitic vol] 92.6 fL 80.0 - 100.0 fL [facility] Monocytes (Bld) [#/Vol] 0.73 10*3/uL <0.87 k/uL [facility] Monocytes/100 WBC (Bld) 9.2 % [facility] Neutrophils (Bld) [#/Vol] 3.72 10*3/uL 1.45 - 7.50 k/uL [facility] Neutrophils/100 WBC (Bld) 46.8 % [facility] Nucleated RBC (Bld) [#/Vol] <0.01 k/uL [facility] Nucleated RBC/100 WBC (Bld) [Ratio] 0.0 /100 WBC [facility] Platelet mean volume (Bld) [Entitic vol] 10.2 fL 9.0 - 12.7 fL [facility] Platelets (Bld) [#/Vol] 220 10*3/uL 150 - 400 k/uL [facility] RBC (Bld) [#/Vol] 4.60 10*6/uL 4.20 - 6.0 0 m/uL [facility] WBC (Bld) [#/Vol] 7.94 10*3/uL 3.70 - 11. 00 k/uL [facility] Comprehensive metabolic 2000 panelon 08-09-2023 Albumin [Mass/Vol] 4.5 g/dL 3.9 - 4.9 g/dL [facility] ALP [Catalytic activity/Vol] 94 U/L 38 - 113 U/L [facility] ALT [Catalytic activity/Vol] 21 U/L 10 - 54 U/L [facility] Anion gap [Moles/Vol] 9 mmol/L 9 - 18 mmol/L [facility] AST [Catalytic activity/Vol] 17 U/L 14 - 40 U/L [facility] Bilirubin [Mass/Vol] 0.9 mg/dL 0.2 - 1 .3 mg/dL [facility] Calcium [Mass/Vol] 10.1 mg/dL 8.5 - 10. 2 mg/dL [facility] Chloride [Moles/Vol] 100 mmol/L 97 - 10 5 mmol/L [facility] CO2 [Moles/Vol] 28 mmol/L 22 - 30 mmol/L [facility] Creatinine [Mass/Vol] 0.93 mg/dL 0.73 - 1.22 mg/dL [facility] Estimated Glomerular Filtration Rate 79 mL/min/1.73m >=60 mL/min/1.73m [facility] Glucose [Mass/Vol] 108 mg/dL High 74 - 99 mg/dL [facility] Potassium [Moles/Vol] 4.0 mmol/L 3.7 - 5.1 mmol/L [facility] Protein [Mass/Vol] 7.7 g/dL 6.3 - 8.0 g/dL [facility] Sodium [Moles/Vol] 137 mmol/L 136 - 144 mmol/L [facility] Urea nitrogen [Mass/Vol] 20 mg/dL 9 - 24 mg/dL [facility] LD LACTATE DEHYDROon 024 LDH [Catalytic activity/Vol] 156 U/L 135 - 225 U/L [facility] URIC ACID BLOODon 08-09-2023 Urate [Mass/Vol] 5.1 mg/dL 4.0 - 8.1 mg/dL [facility] CT NECK SOFT TISSUE W IVCONo n 06-18-2023 [facility] HbA1c (Bld)on 06-17-2023 Average glucose Estimated from glycated hemoglobin (Bld) [Mass/Vol] 120 mg/dL [facility] HbA1c (Bld) [Mass fraction] 5.8 % High 4.3 - 5.6 % [facility] XR Chest PA and Lateralon IMPRESSION: No acute radiographic abnormality. Manager Cosmetic: PHILLIP Transcribe Date/Time: Dec 22 2022 4:56P Dictated by : MARÍA ELENA BLUM MD This examination was interpreted and the report reviewed and electronically signed by: MARÍA ELENA BLUM MD on Dec 22 2022 4:57PM [facility] * * *Final Report* * * DATE OF EXAM: Dec 22 2022 1:15PM WOX 5291 - XR CHEST 2V FRONTAL/LAT / PROCEDURE REASON: Bacterial pneumonia * * * * Physician Interpretation * * * * EXAMINATION: CHEST RADIOGRAPH (2 VIEW FRONTAL & LATERAL) CLINICAL HISTORY: Bacterial pneumonia MQ: XC2_6 EXAM DATE/TIME: 12/22/2022 1:15 PM COMPARISON: 11/20/2022 RESULT: Lines, tubes, and devices: None. Lungs and pleura: No consolidation. No lung mass. No pleural effusion. No pneumothorax. Cardiomediastinal silhouette: Normal cardiomediastinal silhouette. Bones and soft tissues: Degenerative change and osteophytosis throughout the dorsal spine. DIVISION OF RADIOLOGY Provider, [facility] - 12/22/2022 * * *Final Report* * * DATE OF EXAM: Dec 22 2022 1:15PM WOX 5291 - XR CHEST 2V FRONTAL/LAT / PROCEDURE REASON: Bacterial pneumonia * * * * Physician Interpretation * * * * EXAMINATION: CHEST RADIOGRAPH (2 VIEW FRONTAL & LATERAL) CLINICAL HISTORY: Bacterial pneumonia MQ: XC2_6 EXAM DATE/TIME: 12/22/2022 1:15 PM COMPARISON: 11/20/2022 RESULT: Lines, tubes, and devices: None. Lungs and pleura: No consolidation. No lung mass. No pleural effusion. No pneumothorax. Cardiomediastinal silhouette: Normal cardiomediastinal silhouette. Bones and soft tissues: Degenerative change and osteophytosis throughout the dorsal spine. IMPRESSION IMPRESSION: No acute radiographic abnormality. Manager Cosmetic: PSCB Transcribe Date/Time: Dec 22 2022 4:56P Dictated by : MARÍA ELENA BLUM MD This examination was interpreted and the report reviewed and electronically signed by: MARÍA ELENA BLUM MD on Dec 22 2022 4:57PM EST [facility] Radiology Study observation (narrative) Vannesa Munguia XR Chest PA and LateralOrder ed By: Ccf Provider on 12-22-2022 [facility] Basophil percentageOrdered B y: Anna Teresaenharavinash on 12-08-2022 Creatinine [Mass/Vol] 1.0 mg/dL 0.70-1.30 [facility] No Panel InformationOrdered By: Anna Gonzalez on 12-08-2022 Bedside Estimated GFR (eGFR) > 60.0000 mL/min >60 [facility] XR Chest PA and Lateralon IMPRESSION: Bilateral lower lobes infiltrates as described above. A follow-up exam is recommended. Manager Cosmetic: PHILLIP Transcribe Date/Time: Nov 21 2022 4:33A Dictated by : JENNIFER REED MD This examination was interpreted and the report reviewed and electronically signed by: JENNIFER REED MD on Nov 21 2022 4:34AM [facility] DIV[facility] * * *Final Report* * * DATE OF EXAM: Nov 20 2022 12:18PM WOX 5291 - XR CHEST 2V FRONTAL/LAT / PROCEDURE REASON: multiple diagnoses * * * * Physician Interpretation * * * * EXAMINATION: CHEST RADIOGRAPH (2 VIEW FRONTAL & LATERAL) CLINICAL HISTORY: Acute cough Bronchitis MQ: XC2_6 EXAM DATE/TIME: 11/20/2022 12:18 PM COMPARISON: 03/20/2013. RESULT: Lines, tubes, and devices: None. Lungs and pleura: There are bilateral lower lungs infiltrates seen projecting over the infrahilar regions and seen posteriorly on the lateral view compatible with bronchopneumonia and/or bronchitis. No consolidation. No lung mass. No pleural effusion. No pneumothorax. Cardiomediastinal silhouette: Normal cardiomediastinal silhouette. Bones and soft tissues: Unremarkable. DIVISION OF RADIOLOGY [facility], [facility] 11/21/2022 * * *Final Report* * * DATE OF EXAM: Nov 20 2022 12:18PM WOX 5291 - XR CHEST 2V FRONTAL/LAT / PROCEDURE REASON: multiple diagnoses * * * * Physician Interpretation * * * * EXAMINATION: CHEST RADIOGRAPH (2 VIEW FRONTAL & LATERAL) CLINICAL HISTORY: Acute cough Bronchitis MQ: XC2_6 EXAM DATE/TIME: 11/20/2022 12:18 PM COMPARISON: 03/20/2013. RESULT: Lines, tubes, and devices: None. Lungs and pleura: There are bilateral lower lungs infiltrates seen projecting over the infrahilar regions and seen posteriorly on the lateral view compatible with bronchopneumonia and/or bronchitis. No consolidation. No lung mass. No pleural effusion. No pneumothorax. Cardiomediastinal silhouette: Normal cardiomediastinal silhouette. Bones and soft tissues: Unremarkable. IMPRESSION IMPRESSION: Bilateral lower lobes infiltrates as described above. A follow-up exam is recommended. Manager Cosmetic: PHILLIP Transcribe Date/Time: Nov 21 2022 4:33A Dictated by : JENNIFER REED MD This examination was interpreted and the report reviewed and electronically signed by: JENNIFER REED MD on Nov 21 2022 4:34AM EST [facility] XR Chest PA and LateralOrder ed By: Ccf Provider on 11-21-2022 [facility] XR Chest PA and Lateralon Radiology Study observation (narrative) [facility] Absolute lymphocyte countOrd ered By: Nitin Carney on 10-02-2022 Lymphocytes Auto (Unsp spec) [#/Vol] 1.86 10*3/uL 0.83-4.51 [facility] Basophil percentageOrdered B y: Nitin Carney on 10-02-2022 Basophils/100 WBC (Bld) 1.1 % 0-1 [facility] Chloride [Moles/Vol] 108 mmol/L 98-107 [facility] Eosinophils/100 WBC (Bld) 3.6 % 0-5 [facility] Glucose [Mass/Vol] 93 mg/dL 74-106 [facility] Neutrophils (Bld) [#/Vol] 3.7 10*3/uL 2.0-7.7 [facility] Neutrophils/100 WBC (Bld) 56.5 % 47-70 [facility] Potassium [Moles/Vol] 3.9 mmol/L 3.5-5.1 [facility] Sodium [Moles/Vol] 140 mmol/L 136-145 [facility] WBC (Bld) [#/Vol] 6.5 10*3/uL 4.4-11.0 [facility] Blood erythrocytes count (nu mber/volume)Ordered By: Nitin Carney on 10-02-2022 RBC (Bld) [#/Vol] 4.52 10*6/uL 4.6-6.2 [facility] Blood hemoglobin measurement (mass/volume)Ordered By: Nitin Carney on 10-02-2022 Hemoglobin (Bld) [Mass/Vol] 14.2 g/dL 13.0-16.5 [facility] Blood lymphocytes/100 leukoc ytesOrdered By: Nitin Carney on 10-02-2022 Lymphocytes/100 WBC (Bld) 28.8 % 19-41 [facility] Blood monocytes/100 leukocyt esOrdered By: Nitin Craney on 10-02-2022 Monocytes/100 WBC (Bld) 9.8 % 0-10 [facility] Blood platelet mean volumeOr dered By: Nitin Carney on 10-02-2022 Platelet mean volume (Bld) [Entitic vol] 10.6 fL 6.2-12.0 [facility] Determination of erythrocyte mean corpuscular volume (MCV)Ordered By: Nitin Carney on 10-02-2022 MCV (RBC) [Entitic vol] 94.7 fL 80-94 [facility] Hematocrit Auto (Bld) [Volum e fraction]Ordered By: Nitin Carney on 10-02-2022 Hematocrit (Bld) [Volume fraction] 42.8 % 40-54 [facility] Laboratory - Chemistry and C hemistry - challengeOrdered By: Nitin Carney on 10-02-2022 CO2 [Moles/Vol] 27.0 mmol/L 21.0-32.0 [facility] Urea nitrogen/Creatinine [Mass ratio] 19.1 mg/mg 10-20 [facility] - Hematology and Cell countsOrdered By: Nitin Carney on 10-02-2022 Erythrocyte distribution width (RBC) [Entitic vol] 42.8 fL 35.1-43.9 [facility] Erythrocyte distribution width (RBC) [Ratio] 12.3 % 11.6-14.6 [facility] Immature granulocytes/100 WBC (Bld) 0.200 % 0.0-0.9 [facility] Comment on above: IG% - Immature Granu locytes (promyelocytes, myelocytes and metamyelocytes) > 1% indicates that a LEFT SHIFT is Present. MCH (RBC) [Entitic mass] 31.4 pg 27.0-32.0 [facility] Nucleated RBC/100 WBC (Bld) [Ratio] 0 % 0-5 [facility] MCHC Auto (RBC) [Mass/Vol]Or dered By: Nitin Carney on 10-02-2022 MCHC (RBC) [Mass/Vol] 33.2 g/dL 32-36 [facility] No Panel InformationOrdered By: Nitin Carney on 10-02-2022 Estimated Creatinine Clearance Calc 47.05 ml/min [facility] Estimated GFR (MDRD) Amer 98 mL/min >60 [facility] Comment on above: GFR Calc Estimated GFR (MDRD) Non-Af Amer 81 mL/min >60 [facility] Comment on above: Non- GFR Calc Platelets bldOrdered By: Citlaly Carney on 10-02-2022 Platelets (Bld) [#/Vol] 216 10*3/uL 150-450 [facility] Serum or plasma calcium yasmeen urement (mass/volume)Ordered By: Nitin Carney on 10-02-2022 Calcium [Mass/Vol] 9.2 mg/dL 8.5-10.1 [facility] Serum or plasma creatinine m easurement (mass/volume)Ordered By: Nitin Carney on 10-02-2022 Creatinine [Mass/Vol] 0.94 mg/dL 0.70-1.30 [facility] Comment on above: The validity of the calculated GFR & GFRAA in patients over 70 years has not been determined. Clinical correlation is essential. Serum or plasma urea nitroge n measurement (mass/volume)Ordered By: Nitin Carney on 10-02-2022 Urea nitrogen [Mass/Vol] 18 mg/dL 7-18 [facility] Thin prep Papanicolaou smear with manual screeningOrdered By: Nitin Carney on 10-02-2022 Thin prep Papanicolaou smear with manual screening 5 5-15 [facility] Absolute lymphocyte countOrd ered By: Ledy Villatoro on 06-15-2022 Lymphocytes Auto (Unsp spec) [#/Vol] 1.93 10*3/uL 0.83-4.51 [facility] Basophil percentageOrdered B y: Ledy Villatoro on 06-15-2022 Basophil percentage 0 SEEN /hpf 0-5 [facility] Basophils/100 WBC (Bld) 0.4 % 0-1 [facility] Bilirubin [Mass/Vol] 0.70 mg/dL 0.20-1.00 [facility] Comment on above: For patients on eltr ombopag therapy, use of Dimension [place] TBIL is not recommended. Chloride [Moles/Vol] 104 mmol/L 98-107 [facility] Eosinophils/100 WBC (Bld) 0.2 % 0-5 [facility] Glucose [Mass/Vol] 119 mg/dL 74-106 [facility] Comment on above: Fasting Glucose resu lt from 100 to 125 mg/dL suggests IMPAIRED HOMEOSTASIS per A.D.A. criteria. Neutrophils (Bld) [#/Vol] 2.5 10*3/uL 2.0-7.7 [facility] Neutrophils/100 WBC (Bld) 47.9 % 47-70 [facility] Potassium [Moles/Vol] 4.0 mmol/L 3.5-5.1 [facility] Protein [Mass/Vol] 7.3 g/dL 6.4-8.2 [facility] Sodium [Moles/Vol] 138 mmol/L 136-145 [facility] WBC (Bld) [#/Vol] 5.3 10*3/uL 4.4-11.0 [facility] Bilirubin Test strip Ql (U)O rdered By: Ledy Villatoro on 06-15-2022 Bilirubin Ql (U) Negative Negative [facility] Blood erythrocytes count (nu mber/volume)Ordered By: Ledy Villatoro on 06-15-2022 RBC (Bld) [#/Vol] 4.66 10*6/uL 4.6-6.2 [facility] Blood hemoglobin measurement (mass/volume)Ordered By: Ledy Villatoro on 06-15-2022 Hemoglobin (Bld) [Mass/Vol] 14.5 g/dL 13.0-16.5 [facility] Blood lymphocytes/100 leukoc ytesOrdered By: Ledy Villatoro on 06-15-2022 Lymphocytes/100 WBC (Bld) 36.4 % 19-41 [facility] Blood monocytes/100 leukocyt esOrdered By: Ledy Villatoro on 06-15-2022 Monocytes/100 WBC (Bld) 14.7 % 0-10 [facility] Blood platelet mean volumeOr dered By: Ledy Villatoro on 06-15-2022 Platelet mean volume (Bld) [Entitic vol] 11.1 fL 6.2-12.0 [facility] Determination of erythrocyte mean corpuscular volume (MCV)Ordered By: Ledy Villatoro on 06-15-2022 MCV (RBC) [Entitic vol] 95.1 fL 80-94 [facility] Hematocrit Auto (Bld) [Volum e fraction]Ordered By: Ledy Villatoro on 06-15-2022 Hematocrit (Bld) [Volume fraction] 44.3 % 40-54 [facility] INR in Blood by Coagulation assayOrdered By: Ledy Villatoro on 06-15-2022 INR Coag (Bld) [Relative time] 1.0 {INR} [facility] Ketones Test strip Ql (U)Ord ered By: Leyd Villatoro on 06-15-2022 Ketones Ql (U) 5 mg/dl Negative [facility] Laboratory - Chemistry and C hemistry - challengeOrdered By: Ledy Villatoro on 06-15-2022 ALP [Catalytic activity/Vol] 46 U/L 45-117 [facility] ALT [Catalytic activity/Vol] 20 U/L 16-61 [facility] CO2 [Moles/Vol] 27.0 mmol/L 21.0-32.0 [facility] Globulin (S) [Mass/Vol] 3.8 g/dL 2.2-4.2 [facility] Lipase [Catalytic activity/Vol] 130 U/L 73-393 [facility] Urea nitrogen/Creatinine [Mass ratio] 16.7 mg/mg 10-20 [facility] Laboratory - CoagulationOrde red By: Ledy Villatoro on 06-15-2022 aPTT Coag (Bld) [Time] 32.6 s 24.1-36.2 [facility] PT Coag (PPP) [Time] 13.0 s 11.7-14.9 [facility] Laboratory - Hematology and Cell countsOrdered By: Ledy Villatoro on 06-15-2022 Erythrocyte distribution width (RBC) [Entitic vol] 43.8 fL 35.1-43.9 [facility] Erythrocyte distribution width (RBC) [Ratio] 12.5 % 11.6-14.6 [facility] Immature granulocytes/100 WBC (Bld) 0.400 % 0.0-0.9 [facility] Comment on above: IG% - Immature Granu locytes (promyelocytes, myelocytes and metamyelocytes) > 1% indicates that a LEFT SHIFT is Present. MCH (RBC) [Entitic mass] 31.1 pg 27.0-32.0 [facility] Nucleated RBC/100 WBC (Bld) [Ratio] 0 % 0-5 [facility] MCHC Auto (RBC) [Mass/Vol]Or dered By: Ledy Villatoro on 06-15-2022 MCHC (RBC) [Mass/Vol] 32.7 g/dL 32-36 [facility] Mucus LM Ql (Urine sed)Order ed By: Ledy Villatoro on 06-15-2022 Mucus Ql (Urine sed) 0 SEEN /hpf [facility] Nitrite Test strip Ql (U)Ord ered By: Ledy Villatoro on 06-15-2022 Nitrite Ql (U) Negative Negative [facility] No Panel InformationOrdered By: Ledy Villtaoro on 06-15-2022 Estimated Creatinine Clearance Calc 51.59 ml/min [facility] Estimated GFR (MDRD) Amer 103 mL/min >60 [facility] Comment on above: GFR Calc Estimated GFR (MDRD) Non-Af Amer 85 mL/min >60 [facility] Comment on above: Non- GFR Calc Platelets bldOrdered By: Isidoro Villatoro on 06-15-2022 Platelets (Bld) [#/Vol] 149 10*3/uL 150-450 [facility] Protein Test strip Ql (U)Ord ered By: Ledy Villatoro on 06-15-2022 Protein Ql (U) 15 mg/dl Negative [facility] Serum or plasma albumin yasmeen urement (mass/volume)Ordered By: Ledy Villatoro on 06-15-2022 Albumin [Mass/Vol] 3.5 g/dL 3.2-5.0 [facility] Serum or plasma albumin/glob ulin mass ratioOrdered By: Ledy Villatoro on 06-15-2022 Albumin/Globulin [Mass ratio] 0.9 {ratio} 0.9-2.4 [facility] Serum or plasma calcium yasmeen urement (mass/volume)Ordered By: Ledy Villatoro on 06-15-2022 Calcium [Mass/Vol] 9.1 mg/dL 8.5-10.1 [facility] Serum or plasma creatinine m easurement (mass/volume)Ordered By: Ledy Villatoro on 06-15-2022 Creatinine [Mass/Vol] 0.90 mg/dL 0.70-1.30 [facility] Comment on above: The validity of the calculated GFR & GFRAA in patients over 70 years has not been determined. Clinical correlation is essential. Serum or plasma urea nitroge n measurement (mass/volume)Ordered By: Ledy Villatoro on 06-15-2022 Urea nitrogen [Mass/Vol] 15 mg/dL 7-18 [facility] Squamous epithelial cells de tection in urine sediment by light microscopyOrdered By: Ledy Villatoro on 06-15-2022 Epithelial cells.squamous LM Ql (Urine sed) 0 SEEN /hpf 0-5 [facility] Thin prep Papanicolaou smear with manual screeningOrdered By: Ledy Villatoro on 06-15-2022 Thin prep Papanicolaou smear with manual screening 21 U/L 15-37 [facility] Thin prep Papanicolaou smear with manual screening 7 5-15 [facility] Urine blood detectionOrdered By: Ledy Villatoro on 06-15-2022 RBC Ql (U) Negative Negative [facility] RBC Ql (U) 0 SEEN /hpf 0-5 [facility] Urine clarityOrdered By: Isidoro Villatoro on 06-15-2022 Clarity (U) Clear Clear [facility] Urine color determinationOrd ered By: Ledy Villatoro on 06-15-2022 Color (U) Yellow Yellow [facility] Urine glucose detectionOrder ed By: Ledy Villatoro on 06-15-2022 Glucose Ql (U) Normal mg/dl Normal [facility] Urine leukocyte esterase det ection by dipstickOrdered By: Ledy Villatoro on 06-15-2022 Leukocyte esterase Test strip Ql (U) Negative Negative [facility] Urine pHOrdered By: Monica Villatoro on 06-15-2022 pH (U) 7.0 [pH] 5.0 - 8.0 [facility] Urine sediment bacteria coun t by microscopy (number/high power field)Ordered By: Ledy Villatoro on 06-15-2022 Bacteria LM.HPF (Urine sed) [#/Area] 0 /[HPF] None Seen [facility] Urine specific gravity measu rementOrdered By: eLdy Villatoro on 06-15-2022 Specific gravity (U) [Rel density] 1.010 1.002-1.030 [facility] Urobilinogen Auto test strip Ql (U)Ordered By: Ledy Villatoro on 06-15-2022 Urobilinogen Ql (U) Normal mg/dl Normal [facility] Absolute lymphocyte countOrd ered By: Dr. Talbot on 06-13-2022 Lymphocytes Auto (Unsp spec) [#/Vol] 0.99 10*3/uL 0.83-4.51 [facility] Basophil percentageOrdered B y: Dr. Talbot on 06-13-2022 Basophil percentage 0 SEEN /hpf 0-5 [facility] Basophils/100 WBC (Bld) 0.2 % 0-1 [facility] Bilirubin [Mass/Vol] 0.50 mg/dL 0.20-1.00 [facility] Comment on above: For patients on eltr ombopag therapy, use of Dimension [place] TBIL is not recommended. Chloride [Moles/Vol] 104 mmol/L 98-107 [facility] Eosinophils/100 WBC (Bld) 0.2 % 0-5 [facility] Glucose [Mass/Vol] 104 mg/dL 74-106 [facility] Comment on above: Fasting Glucose resu lt from 100 to 125 mg/dL suggests IMPAIRED HOMEOSTASIS per A.D.A. criteria. Lactate [Moles/Vol] 1.0 mmol/L 0.4-2.0 [facility] Neutrophils (Bld) [#/Vol] 3.8 10*3/uL 2.0-7.7 [facility] Neutrophils/100 WBC (Bld) 69.0 % 47-70 [facility] Potassium [Moles/Vol] 3.9 mmol/L 3.5-5.1 [facility] Protein [Mass/Vol] 6.8 g/dL 6.4-8.2 [facility] Sodium [Moles/Vol] 139 mmol/L 136-145 [facility] WBC (Bld) [#/Vol] 5.5 10*3/uL 4.4-11.0 [facility] Bilirubin Test strip Ql (U)O rdered By: Dr. Talbot on 06-13-2022 Bilirubin Ql (U) Negative Negative [facility] Blood erythrocytes count (nu mber/volume)Ordered By: Dr. Talbot on 06-13-2022 RBC (Bld) [#/Vol] 4.57 10*6/uL 4.6-6.2 [facility] Blood hemoglobin measurement (mass/volume)Ordered By: Dr. Talbot on 06-13-2022 Hemoglobin (Bld) [Mass/Vol] 14.3 g/dL 13.0-16.5 [facility] Blood lymphocytes/100 leukoc ytesOrdered By: Dr. Talbot on 06-13-2022 Lymphocytes/100 WBC (Bld) 18.0 % 19-41 [facility] Blood monocytes/100 leukocyt esOrdered By: Dr. Talbot on 06-13-2022 Monocytes/100 WBC (Bld) 12.4 % 0-10 [facility] Blood platelet mean volumeOr dered By: Dr. Talbot on 06-13-2022 Platelet mean volume (Bld) [Entitic vol] 10.6 fL 6.2-12.0 [facility] Determination of erythrocyte mean corpuscular volume (MCV)Ordered By: Dr. Talbot on 06-13-2022 MCV (RBC) [Entitic vol] 93.9 fL 80-94 [facility] Direct bilirubinOrdered By: Dr. Talbot on 06-13-2022 Bilirubin.direct [Mass/Vol] 0.17 mg/dL 0.00-0.30 [facility] Hematocrit Auto (Bld) [Volum e fraction]Ordered By: Dr. Talbot on 06-13-2022 Hematocrit (Bld) [Volume fraction] 42.9 % 40-54 [facility] Ketones Test strip Ql (U)Ord ered By: Dr. Talbot on 06-13-2022 Ketones Ql (U) 15 mg/dl Negative [facility] Laboratory - Chemistry and C hemistry - challengeOrdered By: Dr. Talbot on 06-13-2022 ALP [Catalytic activity/Vol] 47 U/L 45-117 [facility] ALT [Catalytic activity/Vol] 19 U/L 16-61 [facility] CO2 [Moles/Vol] 27.0 mmol/L 21.0-32.0 [facility] Globulin (S) [Mass/Vol] 3.3 g/dL 2.2-4.2 [facility] Lipase [Catalytic activity/Vol] 143 U/L 73-393 [facility] Urea nitrogen/Creatinine [Mass ratio] 17.7 mg/mg 10-20 [facility] Laboratory - Hematology and Cell countsOrdered By: Dr. Talbot on 06-13-2022 Erythrocyte distribution width (RBC) [Entitic vol] 43.2 fL 35.1-43.9 [facility] Erythrocyte distribution width (RBC) [Ratio] 12.4 % 11.6-14.6 [facility] Immature granulocytes/100 WBC (Bld) 0.200 % 0.0-0.9 [facility] Comment on above: IG% - Immature Granu locytes (promyelocytes, myelocytes and metamyelocytes) > 1% indicates that a LEFT SHIFT is Present. MCH (RBC) [Entitic mass] 31.3 pg 27.0-32.0 [facility] Nucleated RBC/100 WBC (Bld) [Ratio] 0 % 0-5 [facility] MCHC Auto (RBC) [Mass/Vol]Or dered By: Dr. Talbot on 06-13-2022 MCHC (RBC) [Mass/Vol] 33.3 g/dL 32-36 [facility] Mucus LM Ql (Urine sed)Order ed By: Dr. Talbot on 06-13-2022 Mucus Ql (Urine sed) 0 SEEN /hpf [facility] Nitrite Test strip Ql (U)Ord ered By: Dr. Talbot on 06-13-2022 Nitrite Ql (U) Negative Negative [facility] No Panel InformationOrdered By: Dr. Talbot on 06-13-2022 Estimated Creatinine Clearance Calc 51.59 ml/min [facility] Estimated GFR (MDRD) Amer 102 mL/min >60 [facility] Comment on above: GFR Calc Estimated GFR (MDRD) Non-Af Amer 85 mL/min >60 [facility] Comment on above: Non- GFR Calc Platelets bldOrdered By: Dr. Talbot on 06-13-2022 Platelets (Bld) [#/Vol] 155 10*3/uL 150-450 [facility] Protein Test strip Ql (U)Ord ered By: Dr. Talbot on 06-13-2022 Protein Ql (U) Negative Negative [facility] Serum or plasma albumin yasmeen urement (mass/volume)Ordered By: Dr. Talbot on 06-13-2022 Albumin [Mass/Vol] 3.5 g/dL 3.2-5.0 [facility] Serum or plasma calcium yasmeen urement (mass/volume)Ordered By: Dr. Talbot on 06-13-2022 Calcium [Mass/Vol] 8.7 mg/dL 8.5-10.1 [facility] Serum or plasma creatinine m easurement (mass/volume)Ordered By: Dr. Talbot on 06-13-2022 Creatinine [Mass/Vol] 0.90 mg/dL 0.70-1.30 [facility] Comment on above: The validity of the calculated GFR & GFRAA in patients over 70 years has not been determined. Clinical correlation is essential. Serum or plasma urea nitroge n measurement (mass/volume)Ordered By: Dr. Talbot on 06-13-2022 Urea nitrogen [Mass/Vol] 16 mg/dL 7-18 [facility] Squamous epithelial cells de tection in urine sediment by light microscopyOrdered By: Dr. Talbot on 06-13-2022 Epithelial cells.squamous LM Ql (Urine sed) 0 SEEN /hpf 0-5 [facility] Thin prep Papanicolaou smear with manual screeningOrdered By: Dr. Talbot on 06-13-2022 Thin prep Papanicolaou smear with manual screening 17 U/L 15-37 [facility] Thin prep Papanicolaou smear with manual screening 8 5-15 [facility] Urine blood detectionOrdered By: Dr. Talbot on 06-13-2022 RBC Ql (U) Negative Negative [facility] RBC Ql (U) 0 SEEN /hpf 0-5 [facility] Urine clarityOrdered By: Dr. Talbot on 06-13-2022 Clarity (U) Clear Clear [facility] Urine color determinationOrd ered By: Dr. Talbot on 06-13-2022 Color (U) Yellow Yellow [facility] Urine glucose detectionOrder ed By: Dr. Talbot on 06-13-2022 Glucose Ql (U) Normal mg/dl Normal [facility] Urine leukocyte esterase det ection by dipstickOrdered By: Dr. Talbot on 06-13-2022 Leukocyte esterase Test strip Ql (U) Negative Negative [facility] Urine pHOrdered By: Dr. Rocky armendariz on 06-13-2022 pH (U) 6.5 [pH] 5.0 - 8.0 [facility] Urine sediment bacteria coun t by microscopy (number/high power field)Ordered By: Dr. Talbot on 06-13-2022 Bacteria LM.HPF (Urine sed) [#/Area] 0 /[HPF] None Seen [facility] Urine specific gravity measu rementOrdered By: Dr. Talbot on 06-13-2022 Specific gravity (U) [Rel density] 1.010 1.002-1.030 [facility] Urobilinogen Auto test strip Ql (U)Ordered By: Dr. Talbot on 06-13-2022 Urobilinogen Ql (U) Normal mg/dl Normal [facility] Vital Signs Date Time Vital Sign Value Performing Clinician Facility 10-24-2024 11:00-0400 Diastolic blood pressure 50 mm[Hg] Dr. Stanley Kaiser MD Work Phone: [facility] 10-24-2024 11:00-0400 Heart rate 61 /min Dr. Stanley Kaiser MD Work Phone: [facility] 10-24-2024 11:00-0400 Respiratory rate 16 /min Dr. Stanley Kaiser MD Work Phone: [facility] 10-24-2024 11:00-0400 SaO2% (BldA) [Mass fraction] 91 % Dr. Stanley Kaiser MD Work Phone: 1(317)346-826615 [place] [address] 10-24-2024 11:00-0400 Systolic blood pressure 101 mm[Hg] Dr. Stanley Kaiser MD Work Phone: 7(794)683-531415 [place] [address] 10-24-2024 08:00-0400 Body temperature 97.2 [degF] Dr. Stanley Kaiser MD Work Phone: 7(234)642-667115 [place] [address] 10-24-2024 06:00-0400 Inhaled oxygen flow rate 2 L/min Dr. Stanley Kaiser MD Work Phone: 1(454)313-069515 [place] [address] 10-24-2024 04:08-0400 Body mass index (BMI) [Ratio] 21.9 kg/m2 Dr. Stanley Kaiser MD Work Phone: 9(894)256-616815 [place] [address] 10-24-2024 04:08-0400 Body weight 58.[address] Stanley Kaiser MD Work Phone: 8(878)437-118215 [place] [address] 10-23-2024 17:47-0400 Body height 162.[address] Stanley Kaiser MD Work Phone: 8(109)260-715015 [place] [address] 09-26-2024 13:42-0400 Body height 162.[address] Stanley Kaiser MD Work Phone: 3(030)900-898415 [place] [address] 09-26-2024 13:42-0400 Body mass index (BMI) [Ratio] 22.1 kg/m2 Dr. Stanley Kaiser MD Work Phone: 7(345)506-089315 [place] [address] 09-26-2024 13:42-0400 Body weight 58.[address] Stanley Kaiser MD Work Phone: 0(586)483-758215 [place] [address] 09-26-2024 13:42-0400 Diastolic blood pressure 90 mm[Hg] Dr. Stanley Kaiser MD Work Phone: 7(464)392-268015 [place] [address] 09-26-2024 13:42-0400 Heart rate 61 /min Dr. Stanley Kaiser MD Work Phone: 0(214)703-799415 [place] [address] 09-26-2024 13:42-0400 Respiratory rate 18 /min Dr. Stanley Kaiser MD Work Phone: 9(405)745-349415 [place] [address] 09-26-2024 13:42-0400 SaO2% (BldA) [Mass fraction] 93 % Dr. Stanley Kaiser MD Work Phone: 6(084)658-210615 [place] [address] 09-26-2024 13:42-0400 Systolic blood pressure 184 mm[Hg] Dr. Stanley Kaiser MD Work Phone: 8(897)527-735315 [place] [address] 09-18-2024 14:37-0400 Body temperature 97.5 [degF] Dr. Stanley Kaiser MD Work Phone: 7(787)244-300315 [place] [address] 09-18-2024 14:37-0400 Body weight 58.[address] Stanley Kaiser MD Work Phone: 9(144)653-162715 [place] [address] 09-18-2024 14:37-0400 Diastolic blood pressure 85 mm[Hg] Dr. Stanley Kaiser MD Work Phone: 1(929)652-615015 [place] [address] 09-18-2024 14:37-0400 Heart rate 70 /min Dr. Stanley Kaiser MD Work Phone: 6(052)639-214315 [place] [address] 09-18-2024 14:37-0400 Respiratory rate 16 /min Dr. Stanley Kaiser MD Work Phone: 6(767)636-902015 [place] [address] 09-18-2024 14:37-0400 SaO2% (BldA) [Mass fraction] 94 % Dr. Stanley Kaiser MD Work Phone: 9(865)736-650615 [place] [address] 09-18-2024 14:37-0400 Systolic blood pressure 182 mm[Hg] Dr. Stanley Kaiser MD Work Phone: 8(613)829-664315 [place] [address] 09-17-2024 08:09-0400 Body temperature 98.2 [degF] Dr. Stanley Kaiser MD Work Phone: 3(600)821-618315 [place] [address] 09-17-2024 08:09-0400 Diastolic blood pressure 91 mm[Hg] Dr. Stanley Kaiser MD Work Phone: 2(842)375-595015 [place] [address] 09-17-2024 08:09-0400 Heart rate 54 /min Dr. Stanley Kaiser MD Work Phone: [facility] 09-17-2024 08:09-0400 Respiratory rate 19 /min Dr. Stanley Kaiser MD Work Phone: [facility] 09-17-2024 08:09-0400 SaO2% (BldA) [Mass fraction] 95 % Dr. Stanley Kaiser MD Work Phone: [facility] 09-17-2024 08:09-0400 Systolic blood pressure 174 mm[Hg] Dr. Stanley Kaiser MD Work Phone: 1(801)067-955399 [place] [address] 09-17-2024 06:12-0400 Body height 162.[address] Stanley Kaiser MD Work Phone: [facility] 09-17-2024 06:12-0400 Body mass index (BMI) [Ratio] 22 kg/m2 Dr. Stanley Kaiser MD Work Phone: 5(575)801-025099 [place] [address] 09-17-2024 06:12-0400 Body weight 58.[address] Stanley Kaiser MD Work Phone: 9(891)434-788699 [place] [address] 09-13-2024 10:07-0400 Body mass index (BMI) [Ratio] 23.03 kg/m2 Tomas Yarelisi DO Work Phone: [facility] 09-13-2024 10:07-0400 Body temperature 98.01 [degF] Tomas Yarelisi DO Work Phone: [facility] 09-13-2024 10:07-0400 Body weight 58.97 kg Tomas Masci DO Work Phone: [facility] 09-13-2024 10:07-0400 Diastolic blood pressure 99 mm[Hg] Tomas Yarelisi DO Work Phone: [facility] 09-13-2024 10:07-0400 Heart rate 66 /min Tomas Santoyoi DO Work Phone: [facility] 09-13-2024 10:07-0400 SaO2% (BldA) [Mass fraction] 94 % Tomas Masci DO Work Phone: [facility] 09-13-2024 10:07-0400 Systolic blood pressure 167 mm[Hg] Tomas Masci DO Work Phone: [facility] 07-07-2024 10:08-0500 Diastolic blood pressure 88 mm[Hg] Stanley Kaiser MD Work Phone: [facility] 07-07-2024 10:08-0500 Systolic blood pressure 138 mm[Hg] Stanley Kaiser MD Work Phone: [facility] 07-07-2024 09:50-0500 Body mass index (BMI) [Ratio] 23.03 kg/m2 Stanley Kaiser MD Work Phone: [facility] 07-07-2024 09:50-0500 Body weight 58.97 kg Stanley Kaiser MD Work Phone: [facility] 07-07-2024 09:50-0500 Heart rate 56 /min Stanley Kaiser MD Work Phone: [facility] 07-07-2024 09:50-0500 SaO2% (BldA) [Mass fraction] 97 % Stanley Kaiser MD Work Phone: [facility] 03-15-2024 09:15-0400 Body mass index (BMI) [Ratio] 23.12 kg/m2 Tomas Masci DO Work Phone: [facility] 03-15-2024 09:15-0400 Body temperature 96.91 [degF] Tomas Masci DO Work Phone: [facility] 03-15-2024 09:15-0400 Body weight 59.19 kg Tomas Masci DO Work Phone: [facility] 03-15-2024 09:15-0400 Diastolic blood pressure 83 mm[Hg] Tomas Masci DO Work Phone: [facility] 03-15-2024 09:15-0400 Heart rate 63 /min Tomas Masci DO Work Phone: [facility] 03-15-2024 09:15-0400 SaO2% (BldA) [Mass fraction] 95 % Tomas Santoyoi DO Work Phone: [facility] 03-15-2024 09:15-0400 Systolic blood pressure 156 mm[Hg] Tomas Santoyoi DO Work Phone: [facility] 12-29-2023 09:50-0400 Body height 160 cm Stanley Kaiser MD Work Phone: [facility] 12-29-2023 09:50-0400 Body mass index (BMI) [Ratio] 22.5 kg/m2 Stanley Kaiser MD Work Phone: [facility] 12-29-2023 09:50-0400 Body weight 57.61 kg Stanley Kaiser MD Work Phone: [facility] 12-29-2023 09:50-0400 Diastolic blood pressure 66 mm[Hg] Stanley Kaiser MD Work Phone: [facility] 12-29-2023 09:50-0400 Heart rate 62 /min Stanley Kaiser MD Work Phone: [facility] 12-29-2023 09:50-0400 SaO2% (BldA) [Mass fraction] 96 % Stanley Kaiser MD Work Phone: [facility] 12-29-2023 09:50-0400 Systolic blood pressure 124 mm[Hg] Stanley Kaiser MD Work Phone: [facility] 12-15-2023 09:09-0400 Body mass index (BMI) [Ratio] 22.67 kg/m2 Tomas Santoyoi DO Work Phone: [facility] 12-15-2023 09:09-0400 Body temperature 97.2 [degF] Tomas Santoyoi DO Work Phone: [facility] 12-15-2023 09:09-0400 Body weight 58.06 kg Tomas Santoyoi DO Work Phone: [facility] 12-15-2023 09:09-0400 Diastolic blood pressure 83 mm[Hg] Tomas Fontenot DO Work Phone: [facility] 12-15-2023 09:09-0400 Heart rate 64 /min Tomas Masci DO Work Phone: [facility] 12-15-2023 09:09-0400 SaO2% (BldA) [Mass fraction] 96 % Tomas Masci DO Work Phone: [facility] 12-15-2023 09:09-0400 Systolic blood pressure 165 mm[Hg] Tomas Masci DO Work Phone: [facility] 09-22-2023 09:16-0400 Body mass index (BMI) [Ratio] 22.85 kg/m2 Tomas Masci DO Work Phone: [facility] 09-22-2023 09:16-0400 Body temperature 97.39 [degF] Tomas Masci DO Work Phone: [facility] 09-22-2023 09:16-0400 Body weight 58.51 kg Tomas Masci DO Work Phone: [facility] 09-22-2023 09:16-0400 Diastolic blood pressure 78 mm[Hg] Tomas Masci DO Work Phone: [facility] 09-22-2023 09:16-0400 Heart rate 58 /min Tomas Masci DO Work Phone: [facility] 09-22-2023 09:16-0400 SaO2% (BldA) [Mass fraction] 94 % Tomas Masci DO Work Phone: [facility] 09-22-2023 09:16-0400 Systolic blood pressure 146 mm[Hg] Tomas Masci DO Work Phone: [facility] 08-27-2023 08:31-0400 Body temperature 96.8 [degF] Tomas Masci DO Work Phone: [facility] 08-27-2023 08:31-0400 Body weight 59.88 kg Tomas Masci DO Work Phone: [facility] 08-27-2023 08:31-0400 Diastolic blood pressure 76 mm[Hg] Tomas Masci DO Work Phone: [facility] 08-27-2023 08:31-0400 Heart rate 59 /min Tomas Masci DO Work Phone: [facility] 08-27-2023 08:31-0400 SaO2% (BldA) [Mass fraction] 92 % Tomas Masci DO Work Phone: [facility] 08-27-2023 08:31-0400 Systolic blood pressure 146 mm[Hg] Tomas Masci DO Work Phone: [facility] 08-09-2023 12:56-0400 Body height 161.3 cm Tomas Masci DO Work Phone: [facility] 08-09-2023 12:56-0400 Body temperature 96.91 [degF] Tomas Masci DO Work Phone: [facility] 08-09-2023 12:56-0400 Body weight 60.1 kg Tomas Masci DO Work Phone: [facility] 08-09-2023 12:56-0400 Diastolic blood pressure 81 mm[Hg] Tomas Masci DO Work Phone: [facility] 08-09-2023 12:56-0400 Heart rate 63 /min Tomas Masci DO Work Phone: [facility] 08-09-2023 12:56-0400 SaO2% (BldA) [Mass fraction] 97 % Tomas Masci DO Work Phone: [facility] 08-09-2023 12:56-0400 Systolic blood pressure 160 mm[Hg] Tomas Masci DO Work Phone: [facility] 06-30-2023 08:59-0500 Diastolic blood pressure 78 mm[Hg] Stanley Kaiser MD Work Phone: [facility] 06-30-2023 08:59-0500 Systolic blood pressure 136 mm[Hg] Stanley Kaiser MD Work Phone: [facility] 06-30-2023 08:31-0500 Body height 167.6 cm Stanley Kaiser MD Work Phone: [facility] 06-30-2023 08:31-0500 Body weight 59.24 kg Stanley Kaiser MD Work Phone: [facility] 06-30-2023 08:31-0500 Heart rate 62 /min Stanley Kaiser MD Work Phone: [facility] 06-30-2023 08:31-0500 SaO2% (BldA) [Mass fraction] 95 % Satnley Kaiser MD Work Phone: [facility] 12-25-2022 11:37-0400 Diastolic blood pressure 86 mm[Hg] Stanley Kaiser MD Work Phone: [facility] 12-25-2022 11:37-0400 Systolic blood pressure 134 mm[Hg] Stanley Kaiser MD Work Phone: [facility] 12-25-2022 11:15-0400 Body height 167.6 cm Stanley Kaiser MD Work Phone: [facility] 12-25-2022 11:15-0400 Body weight 56.25 kg Stanley Kaiser MD Work Phone: [facility] 12-25-2022 11:15-0400 Heart rate 62 /min Stnaley Kaiser MD Work Phone: [facility] 12-25-2022 11:15-0400 SaO2% (BldA) [Mass fraction] 96 % Stanley Kaiser MD Work Phone: [facility] 11-27-2022 11:34-0400 Body height 167.6 cm Stanley Kaiser MD Work Phone: [facility] 11-27-2022 11:34-0400 Body weight 55.79 kg Stanley Kaiser MD Work Phone: [facility] 11-27-2022 11:34-0400 Diastolic blood pressure 66 mm[Hg] Stanley Kaiser MD Work Phone: [facility] 11-27-2022 11:34-0400 Heart rate 78 /min Stanley Kaiser MD Work Phone: [facility] 11-27-2022 11:34-0400 SaO2% (BldA) [Mass fraction] 93 % Stanley Kaiser MD Work Phone: [facility] 11-27-2022 11:34-0400 Systolic blood pressure 124 mm[Hg] Stanley Kaiser MD Work Phone: [facility] 11-20-2022 12:02-0400 Diastolic blood pressure 58 mm[Hg] Stanley Kaiser MD Work Phone: [facility] 11-20-2022 12:02-0400 Systolic blood pressure 110 mm[Hg] Stanley Kaiser MD Work Phone: [facility] 11-20-2022 11:37-0400 Body height 167.6 cm Stanley Kaiser MD Work Phone: [facility] 11-20-2022 11:37-0400 Body weight 55.97 kg Stanley Kaiser MD Work Phone: [facility] 11-20-2022 11:37-0400 Heart rate 64 /min Stanley Kaiser MD Work Phone: [facility] 11-20-2022 11:37-0400 SaO2% (BldA) [Mass fraction] 92 % Stanley Kaiser MD Work Phone: [facility] 10-02-2022 10:18-0400 Body height 167.64 cm [facility] 10-02-2022 10:18-0400 Body mass index (BMI) [Ratio] 20.9 kg/m2 [facility] 10-02-2022 10:18-0400 Body temperature 97.2 [degF] [facility] 10-02-2022 10:18-0400 Body weight 58.96 kg [facility] 10-02-2022 10:18-0400 Diastolic blood pressure 75 mm[Hg] [facility] 10-02-2022 10:18-0400 Heart rate 64 /min [facility] 10-02-2022 10:18-0400 Respiratory rate 14 /min [facility] 10-02-2022 10:18-0400 SaO2% (BldA) [Mass fraction] 100 % [facility] 10-02-2022 10:18-0400 Systolic blood pressure 159 mm[Hg] [facility] 06-15-2022 14:59-0500 Diastolic blood pressure 78 mm[Hg] [facility] 06-15-2022 14:59-0500 Systolic blood pressure 133 mm[Hg] [facility] 06-15-2022 13:18-0500 Body height 167.64 cm [facility] 06-15-2022 13:18-0500 Body mass index (BMI) [Ratio] 21.6 kg/m2 [facility] 06-15-2022 13:18-0500 Body temperature 98 [degF] [facility] 06-15-2022 13:18-0500 Body weight 60.78 kg [facility] 06-15-2022 13:18-0500 Heart rate 71 /min [facility] 06-15-2022 13:18-0500 Respiratory rate 14 /min [facility] 06-15-2022 13:18-0500 SaO2% (BldA) [Mass fraction] 90 % [facility] 06-13-2022 22:28-0500 Diastolic blood pressure 82 mm[Hg] [facility] 06-13-2022 22:28-0500 Heart rate 85 /min [facility] 06-13-2022 22:28-0500 Respiratory rate 15 /min [facility] 06-13-2022 22:28-0500 SaO2% (BldA) [Mass fraction] 98 % [facility] 06-13-2022 22:28-0500 Systolic blood pressure 132 mm[Hg] [facility] 06-13-2022 18:40-0500 Body height 167.64 cm [facility] 06-13-2022 18:40-0500 Body mass index (BMI) [Ratio] 21.6 kg/m2 [facility] 06-13-2022 18:40-0500 Body temperature 98.2 [degF] [facility] 06-13-2022 18:40-0500 Body weight 60.78 kg [facility] 06-13-2022 10:32-0500 Body height 167.6 cm Stanley Kaiser MD Work Phone: [facility] 06-13-2022 10:32-0500 Body temperature 97.81 [degF] Stanley Kaiser MD Work Phone: [facility] 06-13-2022 10:32-0500 Body weight 60.33 kg Stanley Kaiser MD Work Phone: [facility] 06-13-2022 10:32-0500 Diastolic blood pressure 74 mm[Hg] Stanley Kaiser MD Work Phone: [facility] 06-13-2022 10:32-0500 Heart rate 68 /min Stanley Kaiser MD Work Phone: [facility] 06-13-2022 10:32-0500 SaO2% (BldA) [Mass fraction] 95 % Stanley Kaiser MD Work Phone: [facility] 06-13-2022 10:32-0500 Systolic blood pressure 118 mm[Hg] Stanley Kaiser MD Work Phone: [facility] Encounters Encounter Date Encounter Type Care Provider Facility Start: 10-24-2024 Encounter for other preprocedural examination [facility] Start: 10-23-2024 End: 10-24-2024 Evaluation and management of inpatient Dr. Eriberto Ortiz MD -Intensive Care Unit Work Phone: Start: 10-23-2024 Non-patient / Non-visit Dr. Eriberto ludwig MD -[facility] Start: 10-23-2024 ambulatory [facility] Facility:[facility] [place] Start: 09-26-2024 End: 09-26-[address] Brayan Breaux MD -[facility] Work Phone: Start: 09-26-2024 End: 09-26-[address] Stanley Kaiser MD Work Phone: [facility] Work Phone: Start: 09-18-2024 End: 09-18-2024 ambulatory TOMAS FONTENOT Facility:[facility] Start: 09-18-2024 End: 09-18-[address] Eriberto Ortiz MD -[facility] Work Phone: Start: 09-18-2024 End: 09-18-2024 ambulatory Stanley Bowdon Facility:[facility] Start: 09-18-2024 End: 09-19-2024 Telephone encounter Tomas Fontenot DO Work Phone: Hematology/Oncology Comment on above: Results Start: 09-17-2024 End: 09-17-2024 Telephone encounter Tomas Fontenot DO Work Phone: Hematology/Oncology Comment on above: Results (Elevated bi lirubin) Start: 09-17-2024 End: 09-17-2024 Emergency department patient visit Dr. Stanley Kaiser MD Work Phone: -Emergency Department Work Phone: Start: 09-14-2024 End: 09-14-[address] 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, unspecified follicular lymphoma type (HCC) (Primary Dx); Tobacco user Start: 09-13-2024 End: 09-14-2024 ambulatory [facility] Facility:[facility] Start: 07-07-2024 End: 07-07-2024 ambulatory [facility] Facility:[facility] Start: 07-07-2024 End: 07-07-2024 Patient encounter procedure Stanley Kaiser MD Work Phone: [facility] Comment on above: Abdominal aortic ane urysm (AAA) without rupture, unspecified part (HCC) (Primary Dx); Mixed hyperlipidemia; Essential (primary) hypertension; Lymphoma, unspecified body region, unspecified lymphoma type (HCC); Prediabetes; Tobacco user Start: 03-15-2024 End: 03-15-2024 Patient encounter procedure Tomas Fontenot DO Work Phone: Hematology/Oncology Start: 03-15-2024 End: 03-15-2024 ambulatory Tomas A Masci DO Work Phone: Hematology/Oncology Comment on above: 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, unspecified follicular lymphoma type (HCC) (Primary Dx) Start: 12-31-2023 Refill Stanley Kaiser MD Work Phone: [facility] [place] Comment on above: Refill Request Start: 12-29-2023 End: 12-29-2023 Patient encounter procedure Stanley Kaiser MD Work Phone: [facility] [place] Comment on above: Essential (primary) hypertension (Primary Dx); Abdominal aortic aneurysm (AAA) without rupture, unspecified part (HCC); Lymphoma, unspecified body region, unspecified lymphoma type (HCC); Prediabetes; Screening for depression; Encounter for screening examination for other mental health and behavioral disorders Start: 12-29-2023 End: 12-29-2023 ambulatory STANLEY KAISER Facility:[facility] Start: 12-16-2023 Telephone encounter Stanley Kaiser MD Work Phone: [facility] Comment on above: Results Start: 12-15-2023 End: 12-15-2023 Patient encounter procedure Tomas Santoyoi DO Work Phone: Hematology/Oncology Start: 12-15-2023 End: 12-15-2023 ambulatory Tomas A Masci DO Work Phone: Hematology/Oncology Comment on above: 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, unspecified follicular lymphoma type (HCC) (Primary Dx) Start: 09-22-2023 End: 09-22-2023 ambulatory Tomas A Masci DO Work Phone: Hematology/Oncology Comment on above: 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 Provided pt with office number to call with any further questions. 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, unspecified follicular lymphoma type (HCC) (Primary Dx) Start: 08-27-2023 End: 08-27-2023 Patient encounter procedure Tomas Fontenot DO Work Phone: [facility] Start: 08-24-2023 ambulatory STANLEY KAISER Facility :[facility] Start: 08-24-2023 End: 08-24-2023 Subsequent hospital visit by physician Pet [facility] PET CT Comment on above: 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, unspecified follicular lymphoma type (HCC) [C82.91] Start: 08-09-2023 End: 08-09-2023 ambulatory Tomas Fontenot DO Work Phone: Hematology/Oncology Comment on above: 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, unspecified follicular lymphoma type (HCC) (Primary Dx) Start: 08-09-2023 End: 08-09-2023 Patient encounter procedure Tomas Fontenot DO Work Phone: [facility] Start: 08-04-2023 Telephone encounter Tomas brannon DO Work Phone: Hematology/Oncology Comment on above: New Patient Start: 07-19-2023 End: 07-19-2023 ambulatory [facility] Work Phone: Start: 07-19-2023 End: 07-19-2023 Patient encounter procedure [facility] Work Phone: Start: 06-30-2023 End: 06-30-2023 Patient encounter procedure Stanley Kaiser MD Work Phone: [facility] [place] Comment on above: Neck mass (Primary D x); Mixed hyperlipidemia; History of lymphoma; Prediabetes Start: 06-18-2023 Telephone encounter Stanley Kaiser MD Work Phone: Family [facility] [place] Comment on above: Results Start: 06-18-2023 End: 06-18-2023 Subsequent hospital visit by physician [facility] ([facility]) Work Phone: Cat Scan Comment on above: Cervical mass [N88.8 ] Start: 06-17-2023 Telephone encounter Stanley Kaiser MD Work Phone: Family [facility] [place] Comment on above: Results Start: 12-25-2022 End: 12-25-2022 Patient encounter procedure Stanley Kaiser MD Work Phone: Family [facility] [place] Comment on above: Bacterial pneumonia (Primary Dx); Abdominal aortic aneurysm (AAA) without rupture, unspecified part (HCC); Essential (primary) hypertension; Mixed hyperlipidemia Start: 12-22-2022 End: 12-22-2022 Subsequent hospital visit by physician X[facility] [place] Work Phone: Radiology Comment on above: Bacterial pneumonia [J15.9] Start: 12-08-2022 End: 12-08-2022 ambulatory [facility] Work Phone: Start: 12-08-2022 End: 12-08-2022 Patient encounter procedure [facility]-Cat Scan, [facility] Work Phone: Start: 11-27-2022 End: 11-27-2022 Patient encounter procedure Stanley Kaiser MD Work Phone: Family [facility] [place] Comment on above: Bacterial pneumonia (Primary Dx); Weight loss Start: 11-23-2022 Telephone encounter Stanley Kaiser MD Work Phone: Family [facility] [place] Comment on above: Results Start: 11-21-2022 Telephone encounter Stanley Kaiser MD Work Phone: Family [facility] [place] Comment on above: Results Start: 11-20-2022 End: 11-20-2022 [facility] Comment on above: Acute cough [R05.1] Start: 11-20-2022 End: 11-20-2022 Patient encounter procedure Stanley Kaiser MD Work Phone: [facility] Comment on above: Acute cough (Primary Dx); Abdominal aortic aneurysm (AAA) without rupture, unspecified part (HCC); Bronchitis; Weight loss Start: 10-02-2022 End: 10-02-2022 [facility]: Start: 06-15-2022 Telephone encounter Stanley Kaiser MD Work Phone: [facility] Comment on above: Results Start: 06-15-2022 End: 06-15-2022 [facility] Start: 06-13-2022 End: 06-13-2022 [facility] Start: 06-13-2022 End: 06-13-2022 Patient encounter procedure Stanley Kaiser MD Work Phone: [facility] Comment on above: Abdominal discomfort in left upper quadrant (Primary Dx); History of lymphoma Procedures Date Procedure Procedure Detail Performing Clinician Start: 10-24-[address] Stanley Kaiser MD Work Phone: Start: 10-10-2024 Serum inorganic phosphate measurement Dr. Stanley Kaiser MD Work Phone: Start: 09-26-2024 Evaluation of diagnostic study results Dr. Stanley Kaiser MD Work Phone: Start: 09-17-2024 Urnls dip stick/tabl et reagent auto microscopy Dr. Stanley Kaiser MD Work Phone: Start: 09-17-[address] Stanley Kaiser MD Work Phone: Start: 09-17-2024 Computed tomography of abdomen and pelvis with contrast Dr. Stanley Kaiser MD Work Phone: Start: 09-14-2024 Computed tomography of abdomen and pelvis with contrast Dr. Stanley Kaiser MD Work Phone: Start: 12-29-2023 Adult depression screening assessment Stanley Kaiser MD Work Phone: Start: 06-18-2023 Ct soft tissue neck w/contrast material Stanley Kaiser MD Work Phone: Start: 12-22-2022 Radiologic exam ches t 2 views Stanley Kaiser MD Work Phone: Start: 12-08-2022 Computed tomography angiography of abdominal and/or pelvic blood vessel Start: 11-20-2022 Radiologic exam ches t 2 views Stanley Kaiser MD Work Phone: Start: 10-02-2022 CT of abdominal vascular structures Start: 06-15-2022 CT of abdominal vascular structures Start: 06-13-2022 Computed tomography of abdomen and pelvis with intravenous contrast H/O: surgery Status post exci sional biopsy Comment on above: Right buttock 2017 Plan of Treatment Date Care Activity Detail Author Start: 09-19-2027 [facility]: 09-14-[facility]27 [facility] Start: 03-15-2027 [facility] Start: 12-14-2026 [facility] Start: 08-08-2026 [facility] Start: 06-16-2026 [facility] Start: 11-20-2025 DIABETES SCREEN DIABETES SCREEN [facility] Start: 06-13-2025 DIABETES SCREEN DIABETES SCREEN [facility] Start: 03-14-2025 End: 03-14-2025 ambulatory [facility] Comment on above: CBC/CMP(S)/LDH* CBC/CMP(S)/LDH/6 MO OV* Start: 01-15-2025 Influenza vaccination Influenz a Vaccine (Season Ended) [facility] Start: 01-08-2025 End: 01-08-2025 Patient encounter procedure 01/08/2025 8:00 AM EDT Office Visit [facility] [place] [address] [place] [address] [place] [address] Stanley Kaiser MD [address] [facility] [place] [address] physical [facility] [place] Comment on above: physical Start: 12-28-2024 Anxiety Screening Anxiety Screening [facility] Start: 12-28-2024 Covid-19 Vaccine (#1) Covid-19 Vacci ne (#1) [facility] Comment on above: Postponed from 07/14 (Declined at this time) Start: 12-28-2024 Depression Screening Depression Scre ening [facility] Start: 12-28-2024 Pneumococcal Vaccine : 50+ (1 of 2 - PCV) Pneumococcal Vaccine: 50+ (1 of 2 - PCV) [facility] Comment on above: Postponed from 07/14 (Declined at this time) Start: 12-28-2024 Pneumococcal Vaccine : 65+ (1 of 2 - PCV) Pneumococcal Vaccine: 65+ (1 of 2 - PCV) [facility] Comment on above: Postponed from 07/14 (Declined at this time) Start: 12-28-2024 Shingrix Vaccine (1 of 2) Leblanc grix Vaccine (1 of 2) [facility] Comment on above: Postponed from 07/14 (Declined at this time) Start: 12-28-2024 Urine microalbumin profile DTaP,Tdap,Td Vaccine (1 - Tdap) [facility] Comment on above: Postponed from 07/14 (Declined at this time) Start: 11-13-2024 Influenza vaccination Influenza Vacc ine (#1) [facility] Comment on above: Postponed from 01/15 (Declined at this time) Start: 10-24-2024 Patient discharge [facility] Start: 10-23-2024 Following clinical pathway protocol [facility] Start: 10-23-2024 Elevation of head of bed [facility] Start: 10-23-2024 Ambulation without limitation [facility] Start: 10-23-2024 Assessment of risk o f venous thromboembolism [facility] Start: 10-23-2024 Cardiac monitoring [facility] Start: 10-23-2024 Continuous pulse oximetry [facility] Start: 10-23-2024 Incentive spirometry [facility] Start: 10-23-2024 Insertion of cathete r into peripheral vein [facility] Start: 10-23-2024 Measuring intake and output [facility] Start: 10-23-2024 Neurovascular assessment [facility] Start: 10-23-2024 Nil [facility] mouth [facility] [facility] Start: 10-23-2024 Notification of physician [facility] Start: 10-23-2024 Oxygen therapy [facility] Start: 10-23-2024 Patient education [facility] Start: 10-23-2024 Patient referral to dietitian [facility] Start: 10-23-2024 Providing care accor ding to standard [facility] Start: 10-23-2024 Provision of activit y privileges [facility] Start: 10-23-2024 Pulse taking [facility] Start: 10-23-2024 Referral to occupati onal therapist [facility] Start: 10-23-2024 Referral to service [facility] Start: 10-23-2024 Removal of urinary catheter [facility] Start: 10-23-2024 Vital signs measurements [facility] Start: 10-23-2024 End: 10-23-2024 [facility] Start: 10-23-2024 Bedrest [facility] Start: 10-23-2024 Admission procedure [facility] Start: 10-23-2024 Administration of bl ood product [facility] Start: 10-23-2024 Repair of aneurysm o f abdominal aorta with graft Abdominal Aortic Aneurism Graft Stent (Not Applicable) [facility] Start: 10-23-2024 Patient referral to dietitian [facility] Start: 09-26-2024 Evaluation of diagno stic study results 12 Lead EKG performed by BMS [facility] Start: 09-18-2024 Patient referral [facility] Work Phone: Start: 09-17-2024 End: 12-17-2024 Comprehensive metabolic 2000 panel - Serum or Plasma COMPREHENSIVE METABOLIC PANEL Lab Routine Elevated bilirubin Expected: 09/17/2024, Expires: 12/17/2024 [facility] Work Phone: Comment on above: Expected: 09/17/2024 , Expires: 12/17/2024 Start: 09-17-2024 End: 12-17-2024 DIRECT BILIRUBIN BLOOD DIRECT BILIRUBIN BLOOD Lab Routine Elevated bilirubin Expected: 09/17/2024, Expires: 12/17/2024 [facility] Comment on above: Expected: 09/17/2024 , Expires: 12/17/2024 Start: 09-17-2024 End: 09-17-2024 [facility] Start: 09-13-2024 End: 09-13-2024 ambulatory [facility] Comment on above: CBC/CMP(S)/LDH* CBC/CMP(S)/LDH/6 MO OV* Start: 07-07-2024 End: 10-06-2024 CBC W Auto Differential panel - Blood [facility] Comment on above: Expected: 07/07/2024 , Expires: 10/06/2024 Start: 07-07-2024 End: 10-06-2024 Comprehensive metabolic 2000 panel - Serum or Plasma [facility] Work Phone: Comment on above: Expected: 07/07/2024 , Expires: 10/06/2024 Start: 07-07-2024 End: 10-06-2024 Lipid 1996 panel - Serum or Plasma [facility] Comment on above: Expected: 07/07/2024 , Expires: 10/06/2024 Start: 07-07-2024 End: 07-07-2024 Patient encounter procedure 07/07/2024 10:00 AM EST Office Visit [facility] Aleta Hernandez [address] [place] [address] Stanley Kaiser MD [address] [place] [address] 6 month follow up [facility] David Comment on above: 6 month follow up Start: 06-30-2024 End: 09-29-2024 Hemoglobin A1c in Blood HEMOGLOBIN A1C Lab Routine Prediabetes Expected: 06/30/2024, Expires: 09/29/2024 [facility] Work Phone: Comment on above: Expected: 06/30/2024 , Expires: 09/29/2024 Start: 06-16-2024 RSV Vaccine (1 - 1-d ose 60+ series) RSV Vaccine (1 - 1-dose 60+ series) [facility] Comment on above: Postponed from 07/14 (Declined at this time) Start: 06-16-2024 RSV Vaccine (1 - 1-d ose 75+ series) RSV Vaccine (1 - 1-dose 75+ series) [facility] Comment on above: Postponed from 07/14 (Declined at this time) Start: 05-17-2024 Advance Directive Discussion Advance Directive Discussion [facility] Start: 03-15-2024 End: 03-15-2024 ambulatory [place] [facility] Comment on above: CBC/CMP(S)/LDH* CBC/CMP(S)/LDH/3 MO OV* Start: 01-16-2024 Influenza vaccination [facility] Start: 12-29-2023 End: 12-29-2023 Patient encounter procedure 12/29/2023 10:00 AM EDT Office Visit [facility] Aleta Hernandez [address] [place], [place] [id number] Stanley Kaiser MD [address] [place] [address] 6 month follow up [facility] Aleta Hernandez Comment on above: 6 month follow up Start: 12-26-2023 COVID-19 VACCINE (#1) COVID-19 VACCI NE (#1) [facility] Comment on above: Postponed from 01/11 (Declined at this time) Postponed from 07/14 (Declined at this time) Start: 12-26-2023 Pneumococcal Vaccine : 65+ (1 of 2 - PCV) Pneumococcal Vaccine: 65+ (1 of 2 - PCV) [facility] Comment on above: Postponed from 07/14 (Declined at this time) Start: 12-26-2023 PNEUMOCOCCAL: 65+ (1 - PCV) PNEUMOCOCCAL: 65+ (1 - PCV) [facility] Comment on above: Postponed from 07/14 (Declined at this time) Start: 12-26-2023 SHINGRIX VACCINE (1 of 2) LEBLANC GRIX VACCINE (1 of 2) [facility] Comment on above: Postponed from 07/14 (Declined at this time) Start: 12-26-2023 Urine microalbumin profile [facility] Comment on above: Postponed from 07/14 (Declined at this time) Start: 12-17-2023 End: 03-17-2024 Hemoglobin A1c in Blood HGB A1C Lab Routine Prediabetes Expected: 12/17/2023, Expires: 03/17/2024 [facility] Work Phone: Comment on above: Expected: 12/17/2023 , Expires: 03/17/2024 Start: 12-15-2023 End: 12-15-2023 [facility] Comment on above: CBC/CMP/LDH* CBC/CMP/LDH/3 MO OV* Start: 11-14-2023 Influenza vaccination Influenza Vacc ine (#1) [facility] Comment on above: Postponed from 01/15 (Declined at this time) Start: 06-27-2023 End: 08-27-2023 CBC W Auto Differential panel - Blood CBC + DIFF Lab Routine Essential (primary) hypertension Mixed hyperlipidemia Expected: 06/27/2023, Expires: 08/27/2023 [facility] Work Phone: Comment on above: Expected: 06/27/2023 , Expires: 08/27/2023 Start: 06-27-2023 End: 08-27-2023 Comprehensive metabolic 2000 panel - Serum or Plasma COMP METABOLIC PANEL Lab Routine Essential (primary) hypertension Mixed hyperlipidemia Expected: 06/27/2023, Expires: 08/27/2023 [facility] Work Phone: Comment on above: Expected: 06/27/2023 , Expires: 08/27/2023 Start: 06-27-2023 End: 08-27-2023 Lipid 1996 panel - Serum or Plasma LIPID PANEL BASIC Lab Routine Essential (primary) hypertension Mixed hyperlipidemia Expected: 06/27/2023, Expires: 08/27/2023 [facility] Work Phone: Comment on above: Expected: 06/27/2023 , Expires: 08/27/2023 Start: 05-17-2023 Behavioral Health Screening Behavioral Health Screening [facility] Start: 01-15-2023 Influenza vaccination INFLUENZA (#1) [facility] Start: 12-28-2022 End: 12-27-2023 Radiologic exam chest 2 views XR CHEST 2V FRONTAL/LAT Radiology Routine Bacterial pneumonia Expected: 12/28/2022, Expires: 12/27/2023 [facility] Work Phone: Comment on above: Expected: 12/28/2022 , Expires: 12/27/2023 Start: 11-23-2022 End: 01-23-2023 CBC W Auto Differential panel - Blood CBC + DIFF Lab Routine Leukocytosis, unspecified type Expected: 11/23/2022, Expires: 01/23/2023 [facility] Work Phone: Comment on above: Expected: 11/23/2022 , Expires: 01/23/2023 Start: 11-20-2022 End: 01-20-2023 Basic metabolic 2000 panel - Serum or Plasma [facility] Work Phone: Comment on above: Expected: 11/20/2022 , Expires: 01/20/2023 Start: 06-15-2022 End: 08-15-2022 Urinalysis complete panel - Urine URINALYSIS, WITH MICROSCOPIC Lab Routine Proteinuria, unspecified type Expected: 06/15/2022, Expires: 08/15/2022 [facility] Work Phone: Comment on above: Expected: 06/15/2022 , Expires: 08/15/2022 Start: 06-13-2022 End: 08-13-2022 Bacteria identified in Urine by Culture [facility] Work Phone: Comment on above: Expected: 06/13/2022 , Expires: 08/13/2022 Start: 06-13-2022 End: 08-13-2022 CBC W Auto Differential panel - Blood [facility] Work Phone: Comment on above: Expected: 06/13/2022 , Expires: 08/13/2022 Start: 06-13-2022 End: 08-13-2022 Comprehensive metabolic 2000 panel - Serum or Plasma [facility] Work Phone: Comment on above: Expected: 06/13/2022 , Expires: 08/13/2022 Start: 06-13-2022 End: 08-13-2022 Lipase [Enzymatic activity/volume] in Serum or Plasma [facility] Work Phone: Comment on above: Expected: 06/13/2022 , Expires: 08/13/2022 Start: 06-13-2022 End: 08-13-2022 Urinalysis complete panel - Urine [facility] Work Phone: Comment on above: Expected: 06/13/2022 , Expires: 08/13/2022 Start: 05-17-2022 ADVANCE DIRECTIVE DISCUSSION ADVANCE DIRECTIVE DISCUSSION [facility] Start: 05-17-2022 DEPRESSION ASSESSMENT DEPRESSION ASS ESSMENT [facility] Start: 01-15-2022 Influenza vaccination INFLUENZA (#1) [facility] Start: 06-03-2020 DIABETES SCREEN DIABETES SCREEN [facility] Start: 2011 RSV Vaccine (1 - 1-d ose 75+ series) RSV Vaccine (1 - 1-dose 75+ series) [facility] Start: 1955 SHINGRIX VACCINE (1 of 2) LEBLANC GRIX VACCINE (1 of 2) [facility] Start: 1955 Urine microalbumin profile DTAP,TDAP,TD (1 - Tdap) [facility] Start: 1954 Anxiety Screening Anxiety Screening [facility] Start: 1954 Depression Screening Depression Scre ening [facility] Start: 1942 PNEUMOCOCCAL: 65+ (1 - PCV) PNEUMOCOCCAL: 65+ (1 - PCV) [facility] Start: 01-11-1937 COVID-19 VACCINE (#1) COVID-19 VACCI NE (#1) [facility] Basic metabolic 2008 panel with ionized calcium - Serum or Plasma [facility] CBC W Auto Different ial panel - Blood CBC + DIFF Lab Routine Acute cough Bronchitis Weight loss 11/20/2022 12:23 PM EDT [facility] Work Phone: Guidance for deep bi opsy of Bone IMAGING GUIDED BIOPSY RIB/BONY PELVIS/STERNUM/SPINOUS PROCESS Radiology Routine 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, unspecified follicular lymphoma type (HCC) Ordered: 08/27/2023 [facility] Work Phone: Comment on above: Ordered: 08/27/2023 Influenza virus A an d B RNA and SARS-CoV-2 (COVID-19) N gene panel - Respiratory specimen by GUNJAN with probe detection COVID WITH FLUA+B, ROUTINE Microbiology Routine Acute cough Bronchitis 11/20/2022 12:09 PM EDT [facility] Work Phone: Patient Education [facility] Work Phone: Patient referral [facility] Work Phone: End: 09-07-2024 PET+CT Guidance for localization of tumor of Skull base to mid-thigh-- W 18F-FDG IV NM PET/CT SKULL-THIGH INITIAL Radiology Routine 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, unspecified follicular lymphoma type (HCC) 1 Occurrences starting 08/09/2023 until 09/07/2024 [facility] Work Phone: Comment on above: 1 Occurrences starti ng 08/09/2023 until 09/07/2024 PET+CT Guidance for localization of tumor of Skull base to mid-thigh-- W 18F-FDG IV NM PET/CT SKULL-THIGH INITIAL Radiology Routine 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, unspecified follicular lymphoma type (HCC) 08/24/2023 9:47 AM EDT [facility] Work Phone: End: 12-20-2023 Radiologic exam chest 2 views XR CHEST 2V FRONTAL/LAT Radiology Routine Acute cough Bronchitis Weight loss 1 Occurrences starting 11/20/2022 until 12/20/2023 [facility] Work Phone: Comment on above: 1 Occurrences starti ng 11/20/2022 until 12/20/2023 Radiologic exam ches t 2 views XR CHEST 2V FRONTAL/LAT Radiology Routine Acute cough Bronchitis Weight loss 11/20/2022 12:18 PM EDT [facility] Work Phone: [facility] Immunizations Immunization Date Immunization Notes Care Provider Juan A nicolas 06-03-2017 influenza virus vaccine, unspecified formulation Ct ([facility]) Work Phone: [facility] 04-10-2001 Influenza virus vaccine W [facility] Payers Date Payer Category Payer Self-pay [id number] 2013 [employer] BLUE CARD TRADITIONAL OOS [id number] 2013 Unknown [employer]M BLUE CARD TRADITIONAL OOS [id number] 2013-Present [phone] [place] [address] Indemnity [id number] 2003 Unknown [id number] 2001 Medicare [id number] 2001 Medicare [id number] Unknown [id number] Unknown [id number] Unknown [id number] Unknown [id number] Unknown [id number] Unknown [id number] Unknown [id number] Social History Date Type Detail Facility Start: 06-13-2022 End: 07-07-2024 Tobacco smoking status NHIS Smokes tobacco daily [facility] History of tobacco use Cigarette Smoker [facility] Start: 06-13-2022 End: 11-27-2022 Cigarettes smoked current (pack per day) - Reported 0.5 [facility] Work Phone: Start: 06-13-2022 End: 07-07-2024 Tobacco use and exposure Smokeless tobacco non-user [facility] Start: 06-13-2022 End: 09-13-2024 Alcohol intake Current non-drinker of alcohol (finding) [facility] Start: 06-13-2022 Tobacco Comment quitting [facility] Start: 1935 Sex Assigned At Not on file [facility] Start: 06-13-2022 End: 10-02-2022 Tobacco smoking status UTIS Unknown if ever smoked [facility] Start: 1935 Sex Assigned At Male W [facility] Start: 11-20-2022 End: 11-27-2022 Tobacco use panel [facility] Work Phone: National Score (1-10 0), lower number is lower risk Not on file [facility] Work Phone: Start: 09-18-2024 End: 10-23-2024 Tobacco smoking status NHIS Current Heavy tobacco smoker [facility] Start: 09-20-2024 Sex Male (finding) [facility] Functional Status Date Assessment Result Facility 10-24-2024 Functional status Bedrest [facility] Work Phone: 01-26-2014 Are you deaf, or do you have serious difficulty hearing No 01/26/2014 11:38 AM CHAPARRO Colby LpnBrennae Celine [facility] Work Phone: 01-26-2014 Are you blind, or do you have serious difficulty seeing, even when wearing glasses No 01/26/2014 11:38 AM CHAPARRO Colby LpnBrennae [facility] 01-26-2014 Do you have serious difficulty walking or climbing stairs No 01/26/2014 11:38 AM Carol Ya Lpn Celine [facility] 01-26-2014 Do you have difficul ty dressing or bathing No 01/26/2014 11:38 AM Carol Ya Lpn Celine [facility] 01-26-2014 Because of a physica l, mental, or emotional condition, do you have difficulty doing errands alone such as visiting a physician's office or shopping No 01/26/2014 11:38 AM CHAPARRO Colby LpnCarol [facility] Mental Status Date Assessment Result Facility 10-23-2024 Cognitive function Touch/Shaking [facility] Work Phone: 10-02-2022 Cognitive function Level Of Cons ciousness Awake;Alert;Appropriate;Fol lows Commands [facility] Work Phone: 01-26-2014 Because of a physica l, mental, or emotional condition, do you have serious difficulty concentrating, remembering, or making decisions No 01/26/2014 11:38 AM CHAPARRO Colby Lpn Carol Celine [facility] Clinical Notes 04-27-2014 to 10-24-2024 Note Date & Type Note Facility 10-24-2024 Consult note [facility] 10-24-2024 Discharge summary [facility] 10-24-2024 Discharge summary Note Date/Time October 24, 2024 12:15pm [facility] Medical Records Department [address] [place] [address] Discharge Summary 10/24/24813 MR#: [id number] Acct: [id number] Name: VICK RAIN Garcia Rep #:[id number] : 1935 89 From: Anna QUIROGA PCP: Dr. Stanley Kaiser MD Status:DIS I N Location: ICU ICU05-1 Providers Date of Admission: 10/23/24 Primary Care Physician: Dr. Stanley Kaiser MD Reason For Visit: Endovascular Repair, Abdominal Aortic Aneurism, Gr Diagnosis Discharge Diagnosis (1) AAA (abdominal aortic aneurysm) without rupture: Status: Chronic Code(s): I71.40 - Abdominal aortic aneurysm, without rupture, unspecified Qualifiers: Abdominal aorta location: infrarenal aorta Qualified Code(s): I71.43 - Infrarenal abdominal aortic aneurysm, without rupture Plan: Patient seen this morning and feeling well. He reports no significant pain. He feels to his baseline and is eager to discharge to home. He has been tolerating a normal diet. His blood pressures have been stable. Anderson catheter still in place this morning. Will remove and once he voids will be appropriate for discharge. Medications at Discharge Home Medications atorvastatin 80 mg tablet 80 mg PO DAILY cholesterol #30 tabs 06/17/22 aspirin 81 mg tablet,delayed release 81 mg PO QDAY heart [facility] 09/18/24 losartan 50 mg-hydrochlorothiazide 12.5 mg tablet 0.5 tab PO QDAY blood sruunwkd28/23/25 acetaminophen 500 mg tablet 1,000 mg (2 x 500 mg) PO Q8 7 days #0 tabs 10/24/24 Hospital Course Operations - (EVAR) Summary of Care Provided Hospital Course: Mr. Vick Roman is an 89 y/o male who underwent EVAR 10/23/24; initial imaging had revealed type 1a endoleak which resolved with Palmaz stent placement with nofurther endoleaks identified.He tolerated the procedure well. Postoperatively, he was routinely admitted to the ICU for hemodynamic monitoring. He has remainedhemodynamically stable throughout. He did receive more contrast than usual during the procedure; repeat Cr and GFR this morning were stable. He reports minimal pain at the access site. He denies abdominal, chest, back, or flank pain. He has tolerated a normal diet. He was able to void without difficulty following anderson catheter removal. He is medically stable for discharge home today with planned outpatient follow-up. We will recheck his GFR/Cr in 1 week and he is encouraged to ensure adequate hydration for the next week or so. Weight / BMI Weight Weight: 128 lb 11.999 oz Body Mass Index (BMI) 21.9 ABG / Lab / Microbiology Data 10/24/24 03:20 10/24/24 04:50 Laboratory: Laboratory Results - last 24 hr 10/24/24 03:20: WBC 11.1 H, RBC 3.76 L, Hgb 11.8 L, Hct 34.3 L, MCV 91.2, MCH 31.4, MCHC 34.4, RDW Std Deviation 41.9, RDW Coeff of Carlos 12.8, Plt Count 190, MPV 10.6, Immature Gran % (Auto) 0.500, Neut % (Auto) 81.4 H, Lymph % (Auto) 10.4 L, Mills % (Auto) 7.5, Eos % (Auto) 0.0, Baso % (Auto) 0.2, Absolute Neuts (auto) 9.1 H, Absolute Lymphs (auto) 1.16, Nucleated RBC % 0, Sodium Cancelled, Potassium Cancelled, Chloride Cancelled, Carbon Dioxide Cancelled, Anion Gap Cancelled, BUN Cancelled, Creatinine Cancelled, Estim Creat Clear Calc Cancelled, Est GFR (MDRD) Non-Af Cancelled, BUN/Creatinine Ratio Cancelled, Glucose Cancelled, Calcium Cancelled 10/24/24 04:50: Sodium 137, Potassium 4.7, Chloride 104, Carbon Dioxide 22.3, Anion Gap 10, BUN 18, Creatinine 0.93, Estim Creat Clear Calc 45.35 L, Est GFR (MDRD) Non-Af 79, BUN/Creatinine Ratio 19.2, Glucose 129 H, Calcium 7.9 D/C Instructions Discharge Diet: No restrictions May shower in (days): 1 Weight Bearing Status: Weight bearing as tolerated Lifting Restricted to (Lbs): 20 Lifting Restrictions: Do not lift greater than 20 pounds for 3 weeks Call your doctor if your incision/area has: Sudden Increased Bleeding, IncreasedPain/ Swelling and Foul Smelling Discharge Call your doctor if you observe: Fever of 101 or Higher and Uncontrolled pain Remove Dressing in: 1 day DC O2, CPAP, BIPAP Needs Home O2 Discharge instructions: No Additional Instructions: You have a dry dressing over the groin access site. You may remove this tomorrow. Underneath, the incision is closed with skin glue which will peel/flake off on its own over the next few weeks, please do not pick at it. You may shower tomorrow. Soap and water can rinse over the incision site. Pat gently to dry. Do not submerge the incision site such as to take a bath, swim, etc for 3 weeks. Do not lift more than 20 pounds for 3 weeks. Otherwise, please proceed with activity as tolerated. Please Follow Up With: Anna Marshall PA When: 11/07/24 Meaningful Use Info Meaningful Use Meaningful Use Diagnoses (Choose all that apply): None applicable Ischemic Stroke Statin Dosing Therapy Reference: STATIN DOSE THERAPY REFERENCE: * Patients > 75 years receive moderate or high dose statin therapy. * Patients 75 years or YOUNGER should receive HIGH intensity statin dose unless contraindicated. You will be required to document reason for non-treatment if statin daily dose does not meet guidelines. HIGH DOSE STATIN THERAPY DAILY Atorvastatin > than or = to 40 mg Rosuvastatin > than or = to 20 mg Amlodipine + Atorvastatin > than or = to 2.5/40 mg Ezetimibe + Simvastatin 10/80 mg Simvastatin 80mg Discharge Plan Admission Admit Date/Time: 10/23/24 16:18 Attending Provider: Eriberto Ortiz Primary Care Provider: Stanley Kaiser Consulting Providers: Elkin Larson; Brayan Breaux Discharge Orders/Prescriptions Prescriptions: New acetaminophen 500 mg Tablet 1,000 mg PO Q8 7 Days Qty: 0 0RF Continued atorvastatin 80 mg tablet 80 mg PO DAILY Qty: 30 5RF aspirin 81 mg tablet,delayed release (DR/EC) 81 mg PO QDAY losartan-hydrochlorothiazide 50-12.5 mg tablet 0.5 tab PO QDAY Referrals / Follow Up: Stanley Kaiser MD [Primary Care Provider] - Disposition Disposition (needs filled in before D/C Order can be placed): Home, Self Care 10/24/24 1129 <Electronically signed by Anna QUIROGA> Cosigner Signature (if applicable): 10/24/24 1216 <Electronically signed by Eriberto Ortiz MD> CC: JUNAID Dumas; Dr. Eriberto Ortiz MD; Dr. Stanley Kaiser MD~ Signed [facility] Work Phone: 1(924) 834-684006-10-2025 [facility] Medical Records Department [address] [place] [address] Discharge Summary 10/24/24813 MR#: [id number] Acct: [id number] Name: VICK ROMAN Rep #: [id number] : 1935 89 From: Anna QUIROGA PCP: Dr. Stanley Kaiser MD Status:DIS IN Location: ICU ICU05-1 Providers Date of Admission: 10/23/24 Primary Care Physician: Dr. Stanley Kaiser MD Reason For Visit: Endovascular Repair, Abdominal Aortic Aneurism, Gr Diagnosis Discharge Diagnosis (1) AAA (abdominal aortic aneurysm) without rupture: Status: Chronic Code(s): I71.40 - Abdominal aortic aneurysm, without rupture, unspecified Qualifiers: Abdominal aorta location: infrarenal aorta Qualified Code(s): I71.43 - Infrarenal abdominal aortic aneurysm, without rupture Plan: Patient seen this morning and feeling well. He reports no significant pain. He feels to his baseline and is eager to discharge to home. He has been tolerating a normal diet. His blood pressures have been stable. Anderson catheter still in place this morning. Will remove and once he voids will be appropriate for discharge. Medications at Discharge Home Medications atorvastatin 80 mg tablet 80 mg PO DAILY cholesterol #30 tabs 06/17/22 aspirin 81 mg tablet,delayed release 81 mg PO QDAY heart health 09/18/24 losartan 50 mg-hydrochlorothiazide 12.5 mg tablet 0.5 tab PO QDAY blood pressure 10/06/24 acetaminophen 500 mg tablet 1,000 mg (2 x 500 mg) PO Q8 7 days #0 tabs 10/24/24 Hospital Course Operations - (EVAR) Summary of Care Provided Hospital Course: Mr. Vick Roman is an 89 y/o male who underwent EVAR 10/23/24; initial imaging had revealed type 1a endoleak which resolved with Palmaz stent placement with no further endoleaks identified.He tolerated the procedure well. Postoperatively, he was routinely admitted to the ICU for hemodynamic monitoring. He has remained hemodynamically stable throughout. He did receive more contrast than usual during the procedure; repeat Cr and GFR this morning were stable. He reports minimal pain at the access site. He denies abdominal, chest, back, or flank pain. He has tolerated a normal diet. He was able to void without difficulty following anderson catheter removal. He is medically stable for discharge home today with planned outpatient follow-up. We will recheck his GFR/Cr in 1 week and he is encouraged to ensure adequate hydration for the next week or so. Weight / BMI Weight Weight: 128 lb 11.999 oz Body Mass Index (BMI) 21.9 ABG / Lab / Microbiology Data 10/24/24 03:20 10/24/24 04:50 Laboratory: Laboratory Results - last 24 hr 10/24/24 03:20: WBC 11.1 H, RBC 3.76 L, Hgb 11.8 L, Hct 34.3 L, MCV 91.2, MCH 31.4, MCHC 34.4, RDW Std Deviation 41.9, RDW Coeff of Carlos 12.8, Plt Count 190, MPV 10.6, Immature Gran % (Auto) 0.500, N eut % (Auto) 81.4 H, Lymph % (Auto) 10.4 L, Mills % (Auto) 7.5, Eos % (Auto) 0.0, Baso % (Auto) 0.2, Absolute Neuts (auto) 9.1 H, Absolute Lymphs (auto) 1.16, Nucleated RBC % 0, Sodium Cancelled, Potassium Cancelled, Chloride Cancelled, Carbon Dioxide Cancelled, Anion Gap Cancelled, BUN Cancelled, Creatinine Cancelled, Estim Creat Clear Calc Cancelled, Est GFR (MDRD) Non-Af Cancelled, BUN/Creatinine Ratio Cancelled, Glucose Cancelled, Calcium Cancelled 10/24/24 04:50: Sodium 137, Potassium 4.7, Chloride 104, Carbon Dioxide 22.3, Anion Gap 10, BUN 18, Creatinine 0.93, Estim Creat Clear Calc 45.35 L, Est GFR (MDRD) Non-Af 79, BUN/Creatinine Ratio 19.2, Glucose 129 H, Calcium 7.9 D/C Instructions Discharge Diet: No restrictions May shower in (days): 1 Weight Bearing Status: Weight bearing as tolerated Lifting Restricted to (Lbs): 20 Lifting Restrictions: Do not lift greater than 20 pounds for 3 weeks Call your doctor if your incision/area has: Sudden Increased Bleeding, Increased Pain/ Swelling and Foul Smelling Discharge Call your doctor if you observe: Fever of 101 or Higher and Uncontrolled pain Remove Dressing in: 1 day DC O2, CPAP, BIPAP Needs Home O2 Discharge instructions: No Additional Instructions: You have a dry dressing over the groin access site. You may remove this tomorrow. Underneath, the incision is closed with skin glue which will peel/flake off on its own over the next few weeks, please do not pick at it. You may shower tomorrow. Soap and water can rinse over the incision site. Pat gently to dry. Do not submerge the incision site such as to take a bath, swim, etc for 3 weeks. Do not lift more than 20 pounds for 3 weeks. Otherwise, please proceed with activity as tolerated. Please Follow Up With: Anna Marshall PA When: 11/07/24 Meaningful Use Info Meaningful Use Meaningful Use Diagnoses (Choose all that apply): None applicable Ischemic Stroke Statin Dosing Therapy Reference: STATIN DOSE THERAPY REFERENCE: * Patients > 75 ye (more content not included)...[facility] 10-23-2024 Consult note Author Elkin kirill [facility] Note Date/Time October 24, 2024 12:1 5pm [facility] Medical Records Department [address] [place] [address] Anesthesia Postop Eval II 10/23/24 1634 MR#: [id number] Acct: [id number] Name: VICK ROMAN Rep #:[id number] : 1935 89 From: Elkin Larson MD PCP: Dr. Stanley Kaiser MD Status:ADM I N Y Race: C Location: ICU ICU -1 Anesthesia Postop Eval I Sum Postop Eval Completion status Anesthesia document: Postop Eval 1 completed: Yes Anesthesia Postop Eval I Summary Anesthesia Postop Eval I Summary: Anesthesia Postop Eval I: Assessment Summary Airway patent Yes 10/23/24 15:55 [email or web address] Spontaneous unlabored Yes 10/23/24 15:55 [email or web address] respirations Mental status Awake,Confused 10/23/24 15:55 [email or web address] nausea No 10/23/24 15:55 [email or web address] Vomiting No 10/23/24 15:55 [email or web address] Anesthesia Postop Eval I: Fluid Summary Crystalloid volume administer 1,200 10/23/24 15:55 [email or web address] (ml) Colloids volume administered ( ml) Blood Product volume administered (ml) Total IV fluid infused 1,200 10/23/24 15:55 [email or web address] Anesthesia Postop Eval I: Summary Notes Anesthesia Complication No 10/23/24 15:55 [email or web address] Anesthesia Complication Comment: Post-operative progress note Anesthesia: Postop Eval II Evaluation Mental status: Awake Pain Level: 0 nausea: No Vomiting: No 10/23/24 1634 <Electronically signed by Elkin Larson MD > Date _ Elkin Larson MD Cosigner Signature: Date CC: ~ Signed [facility] Work Phone: [phone]) 885-402806-09-2025 Consult note Author [facility] Note Date/Time October 23, 2024 3:55p [facility] Medical Records Department [address] [place] [address] Anesthesia Postop Eval I 10/23/24 1554 MR#: [id number] Acct: [id number] Name: VICK RAIN Garcia Rep #:[id number] : 1935 89 From: Edmund Hyatt CRNA PCP: Dr. Stanley Kaiser MD Status:ADM I N Y Race: C Location: ICU [place] [address] Anesthesia: Postop Eval I Current Vital Signs Temperature: 97 F Pulse Rate: 64 Blood Pressure: 132/80 Respiratory Rate: 15 Pulse Ox: 100 Oxygen Delivery Method: Venturi Mask Oxygen Flow Rate (L/min): 8 Assessment Airway patent: Yes Spontaneous unlabored respirations: Yes Mental status: Awake and Confused nausea: No Vomiting: No Anesthesia Complication: No Fluid Hydration Crystalloid volume administer (ml): 1,200 Total IV fluid infused: 1,200 Progress Note Anesthesia document: Postop Eval 1 completed: Yes 10/23/24 1555 <Electronically signed by Edmund da silva KEYLINER> Date _ Edmund Hyatt CRNA Cosigner Signature: Date CC: ~ Signed [facility] Work Phone: [phone]) 640-751106-09-2025 Procedure note [facility] Medical Records Department [address] [place] [address] Operative Report 10/23/24 1646 MR#: [id number] Acct: [id number] Name: VICK ROMAN Rep #:[id number] : 1935 89 From: Eriberto Ortiz MD PCP: Dr. Stanley Kaiser MD Status:ADM I N Location: ICU [place] [address] Operative Report (Standard) Operative Information Date of Procedure: 10/23/24 Pre-Operative Diagnosis: Infrarenal abdominal aortic aneurysm Post-Operative Diagnosis: Same Surgery/Procedure Performed: Endovascular repair of abdominal aortic aneurysm with percutaneous access Placement Palmaz balloon expandable stent reinforcing the proximal landing zone parquet floor layer's helper: Yes Relief Charge Nurse: Ralph Monteiro Tasks completed by certified anesthesiologist assistant: Opening, Closing, Opening & closing and Implanting device Type of Anesthesia: General RN Documented Start/Stop Times: Operation Date: 10/23/24 11:00 Case Time Into Pre-Op 10/23/24 09:07 Out of Pre-Op 10/23/24 11:30 Into Recovery 10/23/24 15:45 Procedure Start Time: 12:50 Procedure Stop Time: 15:00 Select all DRAINS/GRAFTS/IMPLANTS that apply: Prosthetic device Prosthetic device details: Endologix alto 29 mm main body Ovation iliac limb 16 x 120, right common iliac Ovation iliac limb 14 x 140, left common iliac Palmaz P4010 Estimated Blood Loss: 20 Specimen collected: No Description of surgery: HPI: Patient is an 89-year-old male with an abdominal aortic aneurysm which has been followed with serial imaging. This has grown in size it is now 5.9 cm and the patient wishes to proceed with repair. He is anatomy that is amenable to stent graft so he presents now for elective endovascular aneurysm repair. Description of procedure: Upon obtaining informed consent and verification correct patient procedure site the patient was taken to the [facility] where he was placed under general anesthesia. He was then positioned prepped and draped in usual sterile fashion a time was performed. Under ultrasound guidance the right common femoral artery was accessed with a micropuncture needle wire which was then exchanged for a micropuncture sheath. Through this a hand-injection iliofemoral angiogram was performed revealing satisfactory positioning with no extravasation or dissection. Through the micropuncturesheath a Bentson wire was advanced and the micropuncture sheath exchanged for short 6 Mexican sheathdilate the tract. This sheath was then withdrawn and a pair of Pro-glide suturemediated closure devices were deployed in preclose technique. After suture device deployment an 8 Mexican sheath was advanced over the wire and positioned in the distal common iliac artery. Next under ultrasound guidance the left common femoral artery was accessed with a micropuncture needle and wire. This then exchanged for a micropuncture sheath through which a hand-injection iliofemoral angiogram was performed revealing satisfactory positioning no extravasation or dissection. Through the micropuncture sheath a Bentson wire isadvanced and the micropuncture sheath exchanged for short 6 Mexican sheath. There is significant amount of tortuosity in the iliac artery and the Bentson wire would not navigate into the aorta so a KMP catheter was advanced through the 6 Mexican sheath and the Bentson wire exchanged for an angled Glidewire whichwas advanced into the abdominal aorta. The catheter was then advanced and the wire withdrawn and a Bentson wire advanced after which the catheter and short 6 Mexican sheath were withdrawn and a pair of Pro-glide suture mediated closure devices were deployed in preclose technique. Once the devices were deployed an 8 Mexican sheath was advanced into the ipsilateral proximal external iliac artery. The patient was then heparinized allowed to circulate for 3 minutes with subsequent heparin dosing based on ACT results. Via the right femoral access sheath the Bentson wire and a KMP catheter were advanced into the mid descending thoracic aorta and a Bentson wire exchanged for aLunderquist wire. The left femoral access Bentson wire was advanced into the visceral segment abdominal aorta and a marker pigtail catheter positioned at the L2 vertebral body. The right femoral 8 Mexican sheath was then withdrawn and the Endologix [place] 29 mm main body was advanced into position just above the L2 vertebral body. Oblique view subtraction aortogram was then performed under magnificationto confirm the origins of the bilateral renal arteries with the right being the lowest. The mainbody device top crown was then deployed in satisfactory position with the superior edge of the fabric at the lower edge of the right renal artery. The polymer injection system was then attached to the deployment system and the predetermined polymer volume infused with the autoinjector. While this was infusing the left iliac limb was cannulated via the left femoral access sheath utilizing an angled Glidewire and a KMP catheter. The wire and catheter were then advanced into the aorta superior to the stent graft and the Glidewire exchanged for a second Lunderquist wire. The catheter was then withdrawn and the marker pigtail catheter advanced over the wire and positioned with overlap into the contralateral limb. Hand-injection subtraction left iliacangiogram was performed and the origin of the left internal iliac artery identified. Once the allotted time had been reached the aortic balloon within the delivery system was inflated to the profile at the proximal seal zone and held pressurized for approximately 30 seconds and then deflated. The left iliaclimb 14 x 140 was then selected. Theleft femoral 8 Mexican sheath was withdrawnand the limb advanced in the position with satisfactory overlap into the main body and deployed. The delivery system was then withdrawn and exchanged for a short 10 Mexican sheath. Once the polymer infusion was completed the main body device delivery system was detached and withdrawn and a 14 Mexican sheath advanced over the wire and positioned in the mid external iliac artery. The marker pigtail catheter then advanced via the right femoral access sheath and digital subtraction hand-injection right iliac angiogram performed to obtain length measurementsfor the ipsilateral limb. The right iliac limb 16 x 120 wasthen selected and advanced over the Lunderquist wire through the ipsilateral sheath and positioned with satisfactory overlap in the main body. This was thendeployed and the delivery system withdrawn. An Barr Q50 X compliant balloon was then advanced and inflated to profile along each of the iliac limb overlap sites to the main body as well as within the iliac landing zones. Pigtail catheter was then advanced into the abdominal aorta and digital subtraction completion angiogram was performed which revealed opacification of the bilateralrenal arteries with no evidence of ostial compromise. There was an early proximal endoleak that appeared to be a type Ia in nature. Multiple oblique views were obtained and ultimately were able to confirm that there was contrast passage on the anterior aspect of the superior seal zone filling the proximal aneurysm sac. There continued to be a palpable pulse within the aortic aneurysmwhen palpated through the patient's abdomen and this appeared to be a fairly brisk endoleak. The right [id number] Mexican sheath was exchanged for 16 Mexican sheath and a Palmaz P4010 was brought onto the field. This was then mounted to the Q50 X balloon and advanced via the right femoral access sheath and positioned centered on the sealing rings. The balloon was then inflated to profile with the stent remaining centered over the seal zone. The balloon was then deflated and advanced to slightly more cephalad and again inflated to profile. The balloon was then withdrawn and repeat oblique imaging was performed which revealed resolution of the type Ia endoleak with no additional endoleak's visualized. It was felt that no further intervention was warranted so the right femoral wire and sheath were withdrawn as the Pro-glide sutures were secured with satisfactory hemostasis observed. Surgicel topical hem ostatic was then placed within the access tract and manual pressure held for approximately 2 minutes with complete hemostasis observed. Next the left femoral access sheath and wire were withdrawn andthe Pro-glide suture secured again with satisfactory stasis observed. Surgicel topical hemostatic was applied to the tract and Manta pressure after 2 minutes with complete hemostasisobserved. The incision was then closed with 4 Monocryl and Dermabond for the skin followed by dry sterile dressings. The patient was then awake from anesthesia taken the recovery room with anticipate admission to the intensive care unit for hemodynamic and neurologic monitoring. Surgical Findings: Initial completion imaging revealed type Ia endoleak. This resolved after Palmaz stent placement with no further endoleaks identified. Palpable posterior tibial and popliteal pulses bilateral Complications Complications: No 10/23/24 1952 Cosigner Signature (if applicable): CC: Dr. Elkin Larson MD; Dr. Eriberto Ortiz MD; Dr. Brayan Breaux MD; Dr. Stanley Kaiser MD~ Signed [facility]06-09-2025 Consult note [facility] Medical Records Department [address] [place] [address] Anesthesia Postop Eval I 10/23/24 1554 MR#: [id number] Acct: [id number] Name: VICK ROMAN Rep #:[id number] : 1935 89 From: Edmund Hyatt CRNA PCP: Dr. Stanley Kaiser MD Status:ADM I N Y Race: C Location: ICU ICU05 - Anesthesia: Postop Eval I Current Vital Signs Temperature: 97 F Pulse Rate: 64 Blood Pressure: 132/80 Respiratory Rate: 15 Pulse Ox: 100 Oxygen Delivery Method: Venturi Mask Oxygen Flow Rate (L/min): 8 Assessment Airway patent: Yes Spontaneous unlabored respirations: Yes Mental status: Awake and Confused nausea: No Vomiting: No Anesthesia Complication: No Fluid Hydration Crystalloid volume administer (ml): 1,200 Total IV fluid infused: 1,200 Progress Note Anesthesia document: Postop Eval 1 completed: Yes 10/23/24 1555 n KEYLINER> Date _ Edmund Hyatt KEYLINER Cosigner Signature: Date CC: ~ Signed [facility]06-09-2025 History and physical note Author Eriberto Ortiz [facility] Note Date/Time October 23, 2024 11:[address] [facility] Medical Records Department [address] [place] [address] History & Physical Exam 10/23/24 1116 MR#: [id number] Acct: [id number] Name: VICK ROAMN Rep #:[id number] : 1935 89 From: Eriberto Ortiz MD PCP: Dr. Stanley Kaiser MD Status:ADM I N Location: [facility] A-3 HPI - General General Date of Admission: 10/23/24 HPI Narrative VICK ROMAN is a 89 M who presents with AAA that has been followed with serial imaging for several years. Recent imaging revealed growth to 5.9 cm and anatomy that was amenable to endovascular repair. He presents now for elective EVAR. [facility] Medical History Alcohol use Loss of hearing Wears glasses Wears dentures History of stress test Cardiology follow-up encounter Hyperlipidemia AAA (abdominal aortic aneurysm) without rupture Hypertension Non-Hodgkin lymphoma Skin lesion History of colon polyps Home Medications ?Medication ?Instructions ?Recorded ?Last Taken ?Type atorvastatin 80 mg tablet 80 mg PO DAILY cholesterol # 30 tabs 06/17/22 10/22/24 Rx aspirin 81 mg tablet,delayed 81 mg PO QDAY heart healt h 09/18/24 10/22/24 History release losartan 50 mg-hydrochlorothiazide 0.5 tab PO QDAY blo od pressure 10/06/24 10/22/24 History 12.5 mg tablet Allergy/AdvReac Type Severity Reaction Status Date / Time No Known Allergies Allergy Verified 10/23/24 09:23 Family History (Reviewed 10/23/24 @ 09: by Dr. Elkin Larson MD) Brother Heart disease Mother , age 31 Cancer Surgical History (Reviewed 10/23/24 @ 09: by Dr. Elkin Larson MD) Status post excisional biopsy S/P colonoscopy History of colectomy Social History (Reviewed 10/23/24 @ 09: by Dr. Elkin Larson MD) Smoking Status: Heavy Smoker (>10/day) alcohol intake: never substance use type: does not use caffeine: Yes Vital Signs Vital Signs Vital Signs: 10/23/24 09:25 10/23/24 09:25 10/23/24 10:02 Temperature 97 F L Temperature Source Temporal Pulse Rate 71 81 Respiratory Rate 16 18 Respiratory Pattern Normal Blood Pressure 151/81 H Blood Pressure Mean 104 Blood Pressure Source Monitor Blood Pressure Position Sitting Blood Pressure Location Left Arm Pulse Ox 94 Oxygen Delivery Method Room Air 10/23/24 10:02 Temperature Temperature Source Pulse Rate Respiratory Rate Respiratory Pattern Blood Pressure Blood Pressure Mean Blood Pressure Source Blood Pressure Position Blood Pressure Location Pulse Ox 95 Oxygen Delivery Method Room Air Weight Weight: 124 lb 8.979 oz Body Mass Index (BMI) 21.4 Physical Exam Const alert, oriented x3, no apparent distress and healthy appearing General Appearance: cooperative; Negative for combative or lethargic Orientation / Consciousness: awake Exam Limitations: no limitations HEENT Head and Scalp: normocephalic and atraumatic Eyes EOMs intact bilaterally General Eye: normal appearance of both eyes Neck full ROM General: trachea midline Resp normal respiratory effort and no use of accessory muscles Effort and Inspection: Negative for labored, stridor or audible wheezes Cardio regular rate and regular rhythm Back/Spine Cervical Spine: cervical ROM normal Extremity full ROM, normal capillary refill and no clubbing, cyanosis or edema Skin no rashes or lesions noted and no wounds Neuro oriented x3, CN's II-XII intact bilaterally, no focal motor deficits and no sensory deficits noted Psych thought process normal, cooperative, affect normal, speech normal and activity/motor behavior normal Results Lab / Micro Data 10/10/24 09:26 Assessment & Plan Assessment/Plan (1) AAA (abdominal aortic aneurysm) without rupture: QUALIFIERS: Abdominal aorta location: infrarenal aorta Qualified Code(s): I71.43 - Infrarenal abdominal aortic aneurysm, without rupture PLAN: -infrarenal -EVAR 10/23/24 1119 <Electronically signed by Eriberto Ortiz MD> Cosigner Signature (if applicable): CC: Dr. Eriberto Ortiz MD; Dr. Stanley Kaiser MD~ Signed [facility] Work Phone: 1(332) 160-663006-09-2025 Consult note Author Elkin kirill [facility] Note Date/Time October 23, 2024 9:25a [facility] Medical Records Department [address] [place] [address] Pre-Anesthesia Evaluation 10/23/24924 MR#: [id number] Acct: [id number] Name: VICK ROMAN Rep #:[id number] : 1935 89 From: Elkin Larson MD PCP: Dr. Stanley Kaiser MD Status:PRE I N Y Race: C Location: [facility] ASA Classification* ASA Classification ASA Classification: 3 Assessment & Plan Anesthesia* Anesthesia Assessment Anesthesia Assessment: Discussed sedation and/or anesthesia options, risks, benefits, and alternatives with patient/parents/legal guardian/POA. Questions invited. The patient/parents/legal guardian/POA seems to understand and agrees to proceedwith anesthesia plan. Reviewed the physical assessment, medical history, allergy history and patient home medications list prior to surgery/procedure/anesthetic and documented any changes. Performed airway and anesthesia risk assessments. Anesthesia Type Anesthesia Type: General Anesthesia Focused Assessment* Airway Assessment Mouth opens: >3 cm Mallampati Score: II Labs Anesthesia Preop lab: CBC WBC 7.5 K/mm3 (4.4-11.0) 09/17/24 06:25 09/17/24 RBC 4.86 M/mm3 (4.6-6.2) 09/17/24 06:09/17/24 Hgb 15.0 g/dL (13.0-16.5) 09/17/24 06:09/17/24 Hct 43.9 % (40-54) 09/17/24 06:09/17/24 Plt Count 229 K/mm3 (150-450) 09/17/24 06:25 09/17/24 CHEMISTRY Potassium 3.8 mmol/L (3.3-5.1) 10/10/24 09:26 10/10/24 Sodium 139 mmol/L (133-145) 10/10/24 09:10/10/24 Magnesium 1.8 mg/dL (1.5-2.2) 10/10/24 14:10/10/24 Phosphorus 2.7 mg/dL (2.7-4.5) 10/10/24 14:10/10/24 BUN 25 mg/dL (4-19) H 10/10/24 09:26 10/10/24 Creatinine 0.95 mg/dL (0.70-1.20) 10/10/24 09:26 10/10/24 Glucose 105 mg/dL (70-99) H 10/10/24 09:26 10/10/24 COAG PT 13.0 SECONDS (11.7-14.9) 06/15/22 13:30 Pre-Assessment Diagnosis/Proposed Procedure Planned Operative Procedure(s): ENDOVASCULAR REPAIR AAA Anesthesia History Anesthesia History - harp regulator: Anesthesia History - harp regulator Hx Hospitalization No 10/06/24 09:07 Any Problems With Anesthesia No 10/06/24 09:07 Cholinesterase deficiency No 10/06/24 09:07 You/Your Family Experience No 10/06/24 09:07 fever (hyperthermia) with Relationship Recent Exposure to Contagious No 07/05/17 13:11 Disease Does patient have nerve No 10/06/24 09:07 stimulator Patient instructed to have device shut off --Does patient have Pacemaker or ICD? When Was Last Pacemaker Check QUESTION #4 FULL TEXT: You/Your Family Experience fever (hyperthermia) with Anesthesia Last Oral Intake Last Oral intake: Last Oral Intake NPO since Meds taken in AM with sips of water? Meds patient instructed to take am of surgery PONV PONV - harp regulator: PONV - harp regulator Female No 10/06/24 09:07 HX of Motion Sickness No 10/06/24 09:07 HX of N/V After Surgery No 10/06/24 09:07 Non-Smoker No 10/06/24 09:07 Duration of Surgery greater Yes 10/06/24 09:07 than 60 minutes Number of Risk Factors 1 10/06/24 09:07 PONV Score Low Risk 10/06/24 09:07 Height & Weight Height & Weight: Anesthesia: Height & Weight Height 5 ft 4 in 09/17/24 06:12 Respiratory Assessment Respiratory Assessment - harp regulator: Respiratory Tract Infection Hx - harp regulator Hx Respiratory Tract Infection No 10/06/24 09:07 STOP Sleep Apnea STOP Sleep Apnea - harp regulator: STOP Sleep Apnea - harp regulator Hx Hypertension Yes: JUST STARTED BP MED 10/06/24 09:07 AND CONTROLLED Hx Sleep Apnea No 10/06/24 09:07 CPAP BIPAP Do you snore loudly (louder No 10/06/24 09:07 than talking or can be heard Do you often feel tired/ No 10/06/24 09:07 fatigued/ sleepy during daytime? Has anyone observed you stop No 10/06/24 09:07 breathing during sleep? STOP Results Negative 10/06/24 09:07 QUESTION #5 FULL TEXT : Do you snore loudly (louder than talking or can be heard through closed doors)? Tobacco Use History Tobacco Use History - harp regulator: Tobacco Use History - harp regulator Tobacco Use Smoking Status Heavy Smoker (>10/day) 10/06/24 09:07 Hx Tobacco Use Yes 10/06/24 09:07 Years Smoking Packs Smoked per Day Smoking Cessation Date was within the last 15 years Hx Smoking Cessation Date Hx Smoking Cessation Counseling Hematologic Medial History Hematologic Hx - harp regulator: Hematologic Medical Hx - floor scraper Hx of Blood Transfusion No 10/06/24 09:07 Hx of Transfusion in last 3 No 10/06/24 09:07 Months Date of Last Transfusion (if within last 3 months) Ever experience any problems No 10/06/24 09:07 with transfusion(s)? Specify any problems Hx of Preganancy in last 3 N/A 10/06/24 09:07 Months Nurse Filling Out Transfusion DSCHRIBER 10/06/24 09:07 & Questions: Date: 10/06/24 10/06/24 09:07 Time: 09:10 10/06/24 09:07 Patient unable to answer at this time (ie. confused, unrespo /Reproduction History /Reproductive History - harp regulator: /Reproductive Hx- harp regulator Hx Now No 10/06/24 09:07 Gestational Age (in weeks): EDC: Hx Hx Para Hx Section SAB No 10/06/24 09:07 Active Medications Active Medications: Current Medications Generic Name Dose Route Start Last Admin Trade Name Freq PRN Reason Stop Dose Admin Lactated Ringer's 1,000 mls @ 15 mls/hr 10/23/24 09:15 IV .Q48H HAYDEE PFSH Medical History Alcohol use Loss of hearing Wears glasses Wears dentures History of stress test Cardiology follow-up encounter Hyperlipidemia AAA (abdominal aortic aneurysm) without rupture Hypertension Non-Hodgkin lymphoma Skin lesion History of colon polyps Home Medications ?Medication ?Instructions ?Recorded ?Last Taken ?Type atorvastatin 80 mg tablet 80 mg PO DAILY #30 tabs 06/08 Unknown Rx aspirin 81 mg tablet,delayed 81 mg PO QDAY 09/18/24 History release losartan 50 mg-hydrochlorothiazide 0.5 tab PO QDAY Unknown History 12.5 mg tablet Allergy/AdvReac Type Severity Reaction Status Date / Time No Known Allergies Allergy Verified 10/23/24 09:23 Family History Brother Heart disease Mother , age 31 Cancer Surgical History Status post excisional biopsy S/P colonoscopy History of colectomy Social History Smoking Status: Heavy Smoker (>10/day) alcohol intake: never substance use type: does not use caffeine: Yes Review of Systems (Anesthesia) ROS Narrative System reviewed and no additional complaints, except as documented. 10/23/24924 <Electronically signed by Elkin Larson MD > Date _ Elkin Larson MD Cosigner Signature: Date CC: ~ Signed [facility] Work Phone: [phone]) 437-816906-09-[address] [facility] Medical Records Department [address] [place] [address] History & Physical Exam 10/23/24 1116 MR#: [id number] Acct: [id number] Name: VICK ROMAN Rep #:[id number] : 1935 89 From: Eriberto Ortiz MD PCP: Dr. Stanley Kaiser MD Status:ADM I N Location: [facility] A-3 HPI - General General Date of Admission: 10/23/24 HPI Narrative VICK RMOAN, is a 89 M who presents with AAA that has been followed with serial imaging for several years. Recent imaging revealed growth to 5.9 cm and anatomy that was amenable to endovascular repair. He presents now for elective EVAR. [facility] Medical History Alcohol use Loss of hearing Wears glasses Wears dentures History of stress test Cardiology follow-up encounter Hyperlipidemia AAA (abdominal aortic aneurysm) without rupture Hypertension Non-Hodgkin lymphoma Skin lesion History of colon polyps Home Medications ?Medication ?Instructions ?Recorded ?Last Taken ?Type atorvastatin 80 mg tablet 80 mg PO DAILY cholesterol # 30 tabs 06/17/22 10/22/24 Rx aspirin 81 mg tablet,delayed 81 mg PO QDAY heart healt h 09/18/24 10/22/24 History release losartan 50 mg-hydrochlorothiazide 0.5 tab PO QDAY blo od pressure 10/06/24 10/22/24 History 12.5 mg tablet Allergy/AdvReac Type Severity Reaction Status Date / Time No Known Allergies Allergy Verified 10/23/24 09:23 Family History Brother Heart disease Mother , age 31 Cancer Surgical History Status post excisional biopsy S/P colonoscopy History of colectomy Social History Smoking Status: Heavy Smoker (>10/day) alcohol intake: never substance use type: does not use caffeine: Yes Vital Signs Vital Signs Vital Signs: 10/23/24 09:25 10/23/24 09:25 10/23/24 10:02 Temperature 97 F L Temperature Source Temporal Pulse Rate 71 81 Respiratory Rate 16 18 Respiratory Pattern Normal Blood Pressure 151/81 H Blood Pressure Mean 104 Blood Pressure Source Monitor Blood Pressure Position Sitting Blood Pressure Location Left Arm Pulse Ox 94 Oxygen Delivery Method Room Air 10/23/24 10:02 Temperature Temperature Source Pulse Rate Respiratory Rate Respiratory Pattern Blood Pressure Blood Pressure Mean Blood Pressure Source Blood Pressure Position Blood Pressure Location Pulse Ox 95 Oxygen Delivery Method Room Air Weight Weight: 124 lb 8.979 oz Body Mass Index (BMI) 21.4 Physical Exam Const alert, oriented x3, no apparent distress and healthy appearing General Appearance: cooperative; Negative for combative or lethargic Orientation / Consciousness: awake Exam Limitations: no limitations HEENT Head and Scalp: normocephalic and atraumatic Eyes EOMs intact bilaterally General Eye: normal appearance of both eyes Neck full ROM General: trachea midline Resp normal respiratory effort and no use of accessory muscles Effort and Inspection: Negative for labored, stridor or audible wheezes Cardio regular rate and regular rhythm Back/Spine Cervical Spine: cervical ROM normal Extremity full ROM, normal capillary refill and no clubbing, cyanosis or edema Skin no rashes or lesions noted and no wounds Neuro oriented x3, CN's II-XII intact bilaterally, no focal motor deficits and no sensory deficits noted Psych thought process normal, cooperative, affect normal, speech normal and activity/motor behavior normal Results Lab / Micro Data 10/10/24 09:26 Assessment & Plan Assessment/Plan (1) AAA (abdominal aortic aneurysm) without rupture: QUALIFIERS: Abdominal aorta location: infrarenal aorta Qualified Code(s): I71.43 - Infrarenal abdominal aortic aneurysm, without rupture PLAN: -infrarenal -EVAR 10/23/24 1119 Cosigner Signature (if applicable): CC: Dr. Eriberto Ortiz MD; Dr. Stanley Kaiser MD~ Signed [facility]06-09-2025 [facility] Medical Records Department [address] [place] [address] History Physical Exam 10/23/24 1116 MR#: [id number] Acct: [id number] Name: VICK ROMAN Rep #: [id number] : 1935 89 From: Eriberto Ortiz MD PCP: Dr. Stanley Kaiser MD Status:ADM IN Location: [address] - General General Date of Admission: 10/23/24 HPI Narrative VICK ROMAN, is a 89 M who presents with AAA that has been followed with serial imaging for several years. Recent imaging revealed growth to 5.9 cm and anatomy that was amenable to endovascular repair. He presents now for elective EVAR. [facility] Medical History Alcohol use Loss of hearing Wears glasses Wears dentures History of stress test Cardiology follow-up encounter Hyperlipidemia AAA (abdominal aortic aneurysm) without rupture Hypertension Non-Hodgkin lymphoma Skin lesion History of colon polyps Home Medications ???Medication ???Instructions ???Recorded ???Last Taken ???Type atorvastatin 80 mg tablet 80 mg PO DAILY cholesterol #30 tab s 06/17/22 10/22/24 Rx aspirin 81 mg tablet,delayed 81 mg PO QDAY heart health 5 10/22/24 History release losartan 50 mg-hydrochlorothiazide 0.5 tab PO QDAY blood pressure 0 10/06/24 10/22/24 History 12.5 mg tablet Allergy/AdvReac Type Severity Reaction Status Date / Time No Known Allergies Allergy Verified 10/23/24 09:23 Family History Brother Heart disease Mother , age 31 Cancer Surgical History Status post excisional biopsy S/P colonoscopy History of colectomy Social History Smoking Status: Heavy Smoker (>10/day) alcohol intake: never substance use type: does not use caffeine: Yes Vital Signs Vital Signs Vital Signs: 10/23/24 09:25 10/23/24 09:25 10/23/24 10:02 Temperature 97 F L Temperature Source Temporal Pulse Rate 71 81 Respiratory Rate 16 18 Respiratory Pattern Normal Blood Pressure 151/81 H Blood Pressure Mean 104 Blood Pressure Source Monitor Blood Pressure Position Sitting Blood Pressure Location Left Arm Pulse Ox 94 Oxygen Delivery Method Room Air 10/23/24 10:02 Temperature Temperature Source Pulse Rate Respiratory Rate Respiratory Pattern Blood Pressure Blood Pressure Mean Blood Pressure Source Blood Pressure Position Blood Pressure Location Pulse Ox 95 Oxygen Delivery Method Room Air Weight Weight: 124 lb 8.979 oz Body Mass Index (BMI) 21.4 Physical Exam Const alert, oriented x3, no apparent distress and healthy appearing General Appearance: cooperative; Negative for combative or lethargic Orientation / Consciousness: awake Exam Limitations: no limitations HEENT Head and Scalp: normocephalic and atraumatic Eyes EOMs intact bilaterally General Eye: normal appearance of both eyes Neck full ROM General: trachea midline Resp normal respiratory effort and no use of accessory muscles Effort and Inspection: Negative for labored, stridor or audible wheezes Cardio regular rate and regular rhythm Back/Spine Cervical Spine: cervical ROM normal Extremity full ROM, normal capillary refill and no clubbing, cyanosis or edema Skin no rashes or lesions noted and no wounds Neuro oriented x3, CN's II-XII intact bilaterally, no focal motor deficits and no sensory deficits noted Psych thought process normal, cooperative, affect normal, speech normal and activity/motor behavior normal Results Lab / Micro Data 10/10/24 09:26 Assessment Plan Assessment/Plan (1) AAA (abdominal aortic aneurysm) without rupture: QUALIFIERS: Abdominal aorta location: infrarenal aorta Qualified Code(s): I71.43 - Infrarenal abdominal aortic aneurysm, without rupture PLAN: -infrarenal -EVAR 10/23/24 1119 Cosigner Signature (if applicable): CC: Dr. Eriberto Ortiz MD; Dr. Stanley Kaiser MD S[facility] Consult note [facility] Medical Records Department [address] [place] [address] Pre-Anesthesia Evaluation 10/23/24924 MR#: [id number] Acct: [id number] Name: VICK ROMAN Rep #:[id number] : 1935 89 From: Elkin Larson MD PCP: Dr. Stanley Kaiser MD Status:PRE I N Y Race: C Location: [facility] ASA Classification* ASA Classification ASA Classification: 3 Assessment & Plan Anesthesia* Anesthesia Assessment Anesthesia Assessment: Discussed sedation and/or anesthesia options, risks, benefits, and alternatives with patient/parents/legal guardian/POA. Questions invited. The patient/parents/legal guardian/POA seems to understand and agrees to proceedwith anesthesia plan. Reviewed the physical assessment, medical history, allergy history and patient home medications list prior to surgery/procedure/anesthetic and documented any changes. Performed airway and anesthesia risk assessments. Anesthesia Type Anesthesia Type: General Anesthesia Focused Assessment* Airway Assessment Mouth opens: >3 cm Mallampati Score: II Labs Anesthesia Preop lab: CBC WBC 7.5 K/mm3 (4.4-11.0) 09/17/24 06:09/17/24 RBC 4.86 M/mm3 (4.6-6.2) 09/17/24 06:09/17/24 Hgb 15.0 g/dL (13.0-16.5) 09/17/24 06:25 09/17/24 Hct 43.9 % (40-54) 09/17/24 06:25 09/17/24 Plt Count 229 K/mm3 (150-450) 09/17/24 06:25 09/17/24 CHEMISTRY Potassium 3.8 mmol/L (3.3-5.1) 10/10/24 09:26 10/10/24 Sodium 139 mmol/L (133-145) 10/10/24 09:26 10/10/24 Magnesium 1.8 mg/dL (1.5-2.2) 10/10/24 14:29 10/10/24 Phosphorus 2.7 mg/dL (2.7-4.5) 10/10/24 14:29 10/10/24 BUN 25 mg/dL (4-19) H 10/10/24 09:26 10/10/24 Creatinine 0.95 mg/dL (0.70-1.20) 10/10/24 09:26 10/10/24 Glucose 105 mg/dL (70-99) H 10/10/24 09:26 10/10/24 COAG PT 13.0 SECONDS (11.7-14.9) 06/15/22 13:30 Pre-Assessment Diagnosis/Proposed Procedure Planned Operative Procedure(s): ENDOVASCULAR REPAIR AAA Anesthesia History Anesthesia History - harp regulator: Anesthesia History - harp regulator Hx Hospitalization No 10/06/24 09:07 Any Problems With Anesthesia No 10/06/24 09:07 Cholinesterase deficiency No 10/06/24 09:07 You/Your Family Experience No 10/06/24 09:07 fever (hyperthermia) with Relationship Recent Exposure to Contagious No 07/05/17 13:11 Disease Does patient have nerve No 10/06/24 09:07 stimulator Patient instructed to have device shut off --Does patient have Pacemaker or ICD? When Was Last Pacemaker Check QUESTION #4 FULL TEXT: You/Your Family Experience fever (hyperthermia) with Anesthesia Last Oral Intake Last Oral intake: Last Oral Intake NPO since Meds taken in AM with sips of water? Meds patient instructed to take am of surgery PONV PONV - harp regulator: PONV - harp regulator Female No 10/06/24 09:07 HX of Motion Sickness No 10/06/24 09:07 HX of N/V After Surgery No 10/06/24 09:07 Non-Smoker No 10/06/24 09:07 Duration of Surgery greater Yes 10/06/24 09:07 than 60 minutes Number of Risk Factors 1 10/06/24 09:07 PONV Score Low Risk 10/06/24 09:07 Height & Weight Height & Weight: Anesthesia: Height & Weight Height 5 ft 4 in 09/17/24 06:12 Respiratory Assessment Respiratory Assessment - harp regulator: Respiratory Tract Infection Hx - harp regulator Hx Respiratory Tract Infection No 10/06/24 09:07 STOP Sleep Apnea STOP Sleep Apnea - harp regulator: STOP Sleep Apnea - harp regulator Hx Hypertension Yes: JUST STARTED BP MED 10/06/24 09:07 AND CONTROLLED Hx Sleep Apnea No 10/06/24 09:07 CPAP BIPAP Do you snore loudly (louder No 10/06/24 09:07 than talking or can be heard Do you often feel tired/ No 10/06/24 09:07 fatigued/ sleepy during daytime? Has anyone observed you stop No 10/06/24 09:07 breathing during sleep? STOP Results Negative 10/06/24 09:07 QUESTION #5 FULL TEXT : Do you snore loudly (louder than talking or can be heard through closeddoors)? Tobacco Use History Tobacco Use History - harp regulator: Tobacco Use History - harp regulator Tobacco Use Smoking Status Heavy Smoker (>10/day) 10/06/24 09:07 Hx Tobacco Use Yes 10/06/24 09:07 Years Smoking Packs Smoked per Day Smoking Cessation Date was within the last 15 years Hx Smoking Cessation Date Hx Smoking Cessation Counseling Hematologic Medial History Hematologic Hx - harp regulator: Hematologic Medical Hx - floor scraper Hx of Blood Transfusion No 10/06/24 09:07 Hx of Transfusion in last 3 No 10/06/24 09:07 Months Date of Last Transfusion (if within last 3 months) Ever experience any problems No 10/06/24 09:07 with transfusion(s)? Specify any problems Hx of Preganancy in last 3 N/A 10/06/24 09:07 Months Nurse Filling Out Transfusion DSCHRIBER 10/06/24 09:07 & Questions: Date: 10/06/24 10/06/24 09:07 Time: 09:10 10/06/24 09:07 Patient unable to answer at this time (ie. confused, unrespo /Reproduction History /Reproductive History - harp regulator: /Reproductive Hx- harp regulator Hx Now No 10/06/24 09:07 Gestational Age (in weeks): EDC: Hx Hx Para Hx Section SAB No 10/06/24 09:07 Active Medications Active Medications: Current Medications Generic Name Dose Route Start Last Admin Trade Name Freq PRN Reason Stop Dose Admin Lactated Ringer's 1,000 mls @ 15 mls/hr 10/23/24 09:15 IV .Q48H HAYDEE PFSH Medical History Alcohol use Loss of hearing Wears glasses Wears dentures History of stress test Cardiology follow-up encounter Hyperlipidemia AAA (abdominal aortic aneurysm) without rupture Hypertension Non-Hodgkin lymphoma Skin lesion History of colon polyps Home Medications ?Medication ?Instructions ?Recorded ?Last Taken ?Type atorvastatin 80 mg tablet 80 mg PO DAILY #30 tabs 06/08 Unknown Rx aspirin 81 mg tablet,delayed 81 mg PO QDAY 09/18/24 History release losartan 50 mg-hydrochlorothiazide 0.5 tab PO QDAY Unknown History 12.5 mg tablet Allergy/AdvReac Type Severity Reaction Status Date / Time No Known Allergies Allergy Verified 10/23/24 09: Family History (Reviewed 10/23/24 @ 09: by Dr. Elkin Larson MD) Brother Heart disease Mother , age 31 Cancer Surgical History (Reviewed 10/23/24 @ 09: by Dr. Elkin Larson MD) Status post excisional biopsy S/P colonoscopy History of colectomy Social History Smoking Status: Heavy Smoker (>10/day) alcohol intake: never substance use type: does not use caffeine: Yes Review of Systems (Anesthesia) ROS Narrative System reviewed and no additional complaints, except as documented. 10/23/24924 > Date _ Elkin Larson MD Cosigner Signature: Date CC: ~ Signed [facility]05-06-2025 Telephone encounter Note* Telephone Encounter - Britta Hernandez LPN - 09/19/2024 9:53 AM EDT Spoke with pt., given lab results, voiced understandibng. Britta Hernandez LPN [facility]05-06-2025 Miscellaneous Notes* Telephone Encounter - Britta Hernandez LPN - 09/19/2024 9:53 AM EDT Spoke with pt., given lab results, voiced understandibng. Britta Hernandez LPN * Telephone Encounter - Tomas Fontenot DO - 09/18/2024 5:03 PM EDT Can let him know total bilirubin back to normal. Direct bilirubin slightly elevated but that is of no consequence. [facility] Telephone encounter Note * Telephone Encounter - Tomas Fontenot DO - 09/18/2024 5:03 PM EDT Can let him know total bilirubin back to normal. Direct bilirubin slightly elevated but that is of no consequence. [facility] Work Phone: 1(522) 492-828705-05-2025 Evaluation note* Diagnosis Onset Date Resolution Status Admit Date AAA (abdominal aortic aneury sm) without rupture chronic September 18, 2024 2: 22pm [facility] Work Phone: 1(701) 648-558805-05-2025 Evaluation note* Diagnosis Onset Date Resolution Status Admit Date AAA (abdominal aortic aneury sm) without rupture chronic September 18, 2024 2: 22pm Hyperlipidemia acute September 26, 2024 1:31pm Tobacco abuse acute September 26, 2 025 1:31pm AAA (abdominal aortic aneury sm) without rupture chronic September 26, 2024 1 :31pm Hypertension chronic September 26 1:31pm [facility] Work Phone: 1(280) 722-641205-05-2025 Evaluation note* Diagnosis Onset Date Resolution Status Admit Date AAA (abdominal aortic aneury sm) without rupture chronic September 18, 2024 2: 22pm Hyperlipidemia acute September 26, 2024 1:31pm Tobacco abuse acute September 26, 2 025 1:31pm AAA (abdominal aortic aneury sm) without rupture chronic September 26, 2024 1 :31pm Hypertension chronic September 26 1:31pm AAA (abdominal aortic aneury sm) without rupture chronic October 23, 2024 4 :18pm [facility] Work Phone: [phone]) [phone] Telephone encounter Note* Telephone Encounter - Tomas Fontenot DO - 09/17/2024 2:41 PM EDT Thank you. I added a direct bilirubin and filed both orders. Tomas Fontenot DO [facility]05-04-2025 Miscellaneous Notes* Telephone Encounter - Tomas Fontenot DO - 09/17/2024 2:41 PM EDT Thank you. I added a direct bilirubin and filed both orders. Tomas Fontenot DO * Telephone Encounter - Shawna Dickey - 09/17/2024 2:01 PM EDT I called and spoke to Vick and let him know the below information and he stated understanding. Patient stated he will plan to come in tomorrow but is not sure on what time he will come in but will make sure he eats a meal about 1 hour prior to getting his labs drawn. please sign pended order Shawna Borjas * Telephone Encounter - Tomas Fontenot DO - 09/17/2024 1:44 PM EDT His bilirubin was a little elevated on lab work from last week. Please advise him to have another CMP but do so about an hour after eating breakfast or lunch. Tomas Fontenot DO documented in this encounterUniversity [facility]05-[facility]25 Telephone encounter Note * Telephone Encounter - Shawna Dickey - 09/17/2024 2:01 PM EDT I called and spoke to Vick and let him know the below information and he stated understanding. Patient stated he will plan to come in tomorrow but is not sure on what time he will come in but will make sure he eats a meal about 1 hour prior to getting his labs drawn. please sign pended order Shawna Borjas [facility]05-04-2025 Telephone encounter Note* Telephone Encounter - Tomas Fontenot DO - 09/17/2024 1:44 PM EDT His bilirubin was a little elevated on lab work from last week. Please advise him to have another CMP but do so about an hour after eating breakfast or lunch. Tomas Fontenot DO [facility]05-02-2025 Radiology Diagnostic study note [facility] Imaging Services [address], [place] [address] CTA Abd/Pelvis W/WO Contrast MR#: [id number] Acct: [id number] Name: VICK ROMAN Rep #: [id number] : 1935 M 89 From: Antonia Manley MD PCP: Dr. Stanley Kaiser MD Status: REG C XIMENA Study:CTA Abd/Pelvis W/WO Contrast Date of Ex am: 09/14/24 Exam# [id number] Ordering Dr: Jose Armando Marshall PA PROCEDURE: CTA ABD/PELVIS W/ CONTRAST, 09/14/2024 REASON FOR EXAM: AAA TECHNIQUE: CTA abdomen and pelvis was performed with IV contrast. Multiplanar reformats francisco rotating MIP reconstruction were generated. IV CONTRAST: Isovue 370 VOLUME: 100ML RADIATION DOSE SUMMARY: CTDlvol: 42.74+ 7.98 mGy DLP: 405.95 mGycm One or more dose reduction techniques were used (e.g., Automated exposure control, adjustment of the mA and/or kV according to patient size, use of iterative reconstruction technique). COMPARISON: 12/08/2022 FINDINGS: Note the exam was optimized for evaluation of the arterial vasculature rather than venous structures, soft tissues, and remaining abdominopelvic viscera. Abdominal aorta: Severe diffuse atherosclerosis with tortuosity. Abdominal aortic aneurysm with considerable mural thrombus and/or soft atherosclerotic plaque has enlarged slightly, now measuring 5.9 x 5.8 cm, previously 5.0 x 5.0 cm. Questionable trace stranding posteriorly. No abnormal non-rounded morphology. Celiac: Replaced LEFT hepatic artery arising from the LEFT gastric artery, normal variant. SMA: Patent. RIGHT Renal artery: Patent main renal artery. Two RIGHT renal arteries arising from the aorta in the region of the inferior aspect of the above described abdominal aortic aneurysm were previously patent are now barely visible, uncertain if currently patent, limited evaluation due to minute size, however occlusion of at least 1 of the 2 accessory renal arteries is suspected given findings suspicious for a RIGHT lower pole renal infarct as below. LEFT Renal artery: Unremarkable. ELVIN: Not well seen as before, possibly occluded. Common iliacs: Severe atherosclerosis. Mild focal stenosis along the proximal and mid RIGHT common iliac artery.. External iliacs: Moderate atherosclerosis. Mild/moderate focal stenosis at the origin of the LEFT external iliac artery. Internal iliacs: Moderate atherosclerosis. Mild focal stenosis proximally on the LEFT. 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 Other vascular: Femoral atherosclerosis without high-grade stenosis within the [id number].. Other nonvascular: Nodules in the LEFT lung base up to 18 mm were not present onprevious scheduling administrator images, possibly calcified however this is not definite. Airspace disease in the RIGHT lung base with endobronchial debris. Atleast trace to mild aortic annular calcification. Slightly enlarged RIGHT atrium and ventricle suggested, partially imaged. Coronary atherosclerosis. Tiny hepatic hypodensity too small to characterize, but similar to 06/13/2022, likely cyst or hemangioma.. New hypoenhancement of the RIGHT renal lower pole consistent with an infarct as above. Mass-effect on bowel loops by the abdominal aortic aneurysm. Rectal anastomosis. Diverticulosis. 2.5 x 1.7 cm nonspecific nodular lesion along the posterior aspect of the cecum/ascending colon previously measured 2.3 x 1.9 cm on 06/13/2022. Appendix is not identified in this area. Prostatomegaly. Partially imaged at least moderate LEFT hydrocele with high-density layering components, nonspecific, not well evaluated by CT. Demineralization. Mild spondylosis. Lumbar levoscoliosis. CT/CTA Abd/Pelvis W/WO Contrast IMPRESSION: 1. Severe atherosclerosis with enlarged now 5.9 cm abdominal aortic aneurysm. Questionable trace stranding posteriorly is nonspecific but could conceivably be seen in the setting of impending rupture. No abnormal morphology to confirm this. If the patient is symptomatic, recommend referral to the ED. Regardless, recommend prompt referral to vascular surgery or IR for definitive management as aneurysms of this size are at increased risk for rupture. 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 2. Airspace disease in the RIGHT lung base with endobronchial debris. Findings suggest aspiration with possible mild pneumonia/pneumonitis. 3. 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 On correlation with previousCTA, this is probably related to occlusion at least 1 of 2 accessory RIGHT renal arteries which were much better seen previously, now barely perceptible and of uncertain patency. 4. Nodules in the LEFT lung base up to 18 mm were not present on previous scheduling administrator images, possibly calcified however this is not definite. Recommend CT chest. 5. 2.5 x 1.7 cm nonspecific nodular lesion along the posterior aspect of the cecum/ascending colon previously measured 2.3 x 1.9 cm on 06/13/2022. Given that the appendix is not identified, this could reflectan abnormal appendix. Mucocele/lo (more content not included)...[facility]04-30-2025 NoteHNO ID: [id number] Author: TOMAS FONTENOT, DO Service: ? 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 HPI: The patient is an 89-year-old male with a past medical history as outlined below. Diagnosed with lymphoma in 1992 when presented with left groin adenopathy. Received radiation. Recurred 2000 with right groin adenopathy. He didn't seek medical attention right away and when did required chemotherapy (R-CHOP x6) followed by radiation. Last seen here for follow up 05/06/2004 prior to recent recurrence. 5-6 weeks prior to presentation, noticed a hard lump posterior left cervical area. CT Neck 06/18/2023: Irregular hyperattenuating, likely enhancing soft tissue with infiltrative margins deep to the LEFT sternocleidomastoid muscle, posterior to the LEFT digastric muscle, and anterior to the LEFT trapezius muscle with possible intramuscular component along the deep surface of the sternocleidomastoid muscle measuring approximately 4.5 x 1.9 x 5.1 cm (transaxial long axis by short axis by CC oblique; 5:62 and 7:91). 1.1 x 1.1 cm well-circumscribed lesion within the skin and subcutaneous tissue of the RIGHT posterior neck, likely an epidermoid inclusion cyst (5:62). Suprahyoid Neck: Nasopharynx and oropharynx appear grossly normal. Parapharyngeal tissue planes are preserved. Oral cavity and floor of mouth appear normal within constraints of artifact from dental amalgam. Lumber Tallier spaces appear normal. Infrahyoid Neck: Hypopharynx, larynx, and imaged infraglottic trachea appear grossly normal. Imaged upper esophagus is unremarkable. Lymph nodes: No cervical lymphadenopathy by size, number or morphologic criteria. Small nonspecific lymph nodes are scattered throughout the neck. Major salivary glands: Parotid and submandibular spaces are unremarkable. Thyroid gland: Thyroid gland is homogeneous without evidence of discrete nodule. Carotid space: Patent bilateral extracranial carotid and jugular systems. Severe narrowing of the LEFT internal jugular vein beginning in the LEFT infratemporal fossa. The stylomastoid foramen. Intracranial contents: No abnormal intracranial enhancement, mass effect, or hydrocephalus. Remote LEFT caudate head infarct. Orbits, Face and Skull Base: Focal radiopacity along the LEFT medial canthus. Postoperative changes in the bilateral globes. Orbital soft tissue planes are otherwise preserved. Paranasal sinuses are clear. Mastoid air cells and middle ear cavities are clear. No evidence of an osteolytic or osteoblastic process in the skull base. Bones: Diffuse osteopenia, likely age related. No suspicious osseous lesions in the imaged calvarium, skull base and spine. Normal cervicothoracic alignment. Multilevel mild spinal canal and multilevel up to moderate neural foraminal degenerative changes. . Temporomandibular joints are maintained. Lungs: Imaged lung apices are clear of focal consolidation or mass. Upper lobe moderate centrilobular emphysematous changes. Was referred to Dr. Whyte. Underwent FNA of left neck mass on 07/19/2023. 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 Comment demonstrated that the flow cytometry revealed the aspirate material was B-cell lymphoma that was CD10 positive. The immunophenotype suggested follicular center origin. AE1-3 (AE1/AE3/PCK26) negative CD3 (PS1) negative CD5 (SP10) negative CD10 (56C6) positive CD15 (MMA) negative CD20 (L26) positive CD23 (1B12) negative CD30 (Ramu-H2) negative CD43 (L60) positive, focal CD45 (RP2/18) positive CD79a (11E3) positive CD138 (B-A38) negative BCL-2 (bcl-2/100/D5) positive BCL-6 (BD116F/A8) negative Cyclin D1/BCL-1 (SP4) negative MUM1 (MRQ-43) negative C-MYC (Y69) negative Kingsbury (polyclonal) negative Lambda (polyclonal) negative P53 (DO-7) negative, null pattern Ki-67 (30-9) positive, 20% Per initial office visit: He feels well in general. No trouble with swallowing. No neck pain. Appetite has been normal. No constitutional symptoms of night sweats or weight loss. Had biopsy iliac lesion. Path c/w low grade follicular lymphoma. Presents for ongoing oncologic management. Interim history: He feels well and has no complaints. Denies MS pain. No subjective change in left cervical LN. Normal appetite. PAST MEDICAL HISTORY Diagnosis Date Abdominal aortic aneurysm Essential (primary) hypertension 11/20/2022 Lymphoma in remission 1992, 2000 had radiation tx and chemo PAST SURGICAL HISTORY Procedure Laterality Date COLECTOMY PRTL W/COLOPROCTOSTOMY 04-10-13 Colonoscopy COLONOSCOPY 07/04/17 COLONOSCOPY FLX DX W/COLLJ SPEC WHEN PFRMD 02/22/2013 Colonoscopy COLONOSCOPY VIA STOMA W OR W/O BRSH/WSH 04/27/14 PAST SURGICAL HISTORY OF lymph node biopsy PROCTOSGMDSC RGD DX W/WO COLLJ SPE (more content not included)...[facility]04-30-2025 History of Present illness Narrative* Tomas Fontenot DO - 09/13/2024 10:34 AM EDT 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 HPI: The patient is an 89-year-old male with a past medical history as outlined below. Diagnosed with lymphoma in 1992 when presented with left groin adenopathy. Received radiation. Recurred 2000 with right groin adenopathy. He didn't seek medical attention right away and when didrequired chemotherapy (R-CHOP x6) followed by radiation. Last seen here for follow up 05/06/2004 prior to recent recurrence. 5-6 weeks prior to presentation, noticed a hard lump posterior left cervical area. CT Neck 06/18/2023: Irregular hyperattenuating, likely enhancing soft tissue with infiltrative margins deep to the LEFTsternocleidomastoid muscle, posterior to the LEFT digastric muscle, and anterior to the LEFT trapezius muscle with possible intramuscular component along the deep surface of the sternocleidomastoid muscle measuring approximately 4.5 x 1.9 x 5.1 cm (transaxial long axis by short axis by CC oblique; 5:62 and 7:91). 1.1 x 1.1 cm well-circumscribed lesion within the skin and subcutaneous tissue of the RIGHT posterior neck, likely an epidermoid inclusion cyst (5:62). Suprahyoid Neck: Nasopharynx and oropharynx appear grossly normal. Parapharyngeal tissue planes are preserved. Oral cavity and floor of mouth appear normal within constraints of artifact from dental amalgam. Lumber Tallier spaces appear normal. Infrahyoid Neck: Hypopharynx, larynx, and imaged infraglottic trachea appear grossly normal. Imaged upper esophagus is unremarkable. Lymph nodes: No cervical lymphadenopathy by size, number or morphologic criteria. Small nonspecific lymph nodes are scattered throughout the neck. Major salivary glands: Parotid and submandibular spaces are unremarkable. Thyroid gland: Thyroid gland is homogeneous without evidence of discrete nodule. Carotid space: Patent bilateral extracranial carotid and jugular systems. Severe narrowing of the LEFT internal jugular vein beginning in the LEFT infratemporal fossa. The stylomastoid foramen. Intracranial contents: No abnormal intracranial enhancement, mass effect, or hydrocephalus. Remote LEFT caudate head infarct. Orbits, Face and Skull Base: Focal radiopacity along the LEFT medial canthus. Postoperative changes in the bilateral globes. Orbital soft tissue planes are otherwise preserved. Paranasal sinuses are clear. Mastoid air cells and middle ear cavities are clear. No evidence of an osteolytic or osteoblastic process in the skull base. Bones: Diffuse osteopenia, likely age related. No suspicious osseous lesions in the imaged calvarium, skull base and spine. Normal cervicothoracic alignment. Multilevel mild spinal canal and multilevel up to moderate neural foraminal degenerative changes. . Temporomandibular joints are maintained. Lungs: Imaged lung apices are clear of focal consolidation or mass. Upper lobe moderate centrilobular emphysematous changes. Was referred to Dr. Whyte. Underwent FNA of left neck mass on 07/19/2023. 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 Comment demonstrated that the flow cytometry revealed the aspirate material was B-cell lymphoma that was CD10 positive. The immunophenotype suggested follicular center origin. AE1-3 (AE1/AE3/PCK26) negative CD3 (PS1) negative CD5 (SP10) negative CD10 (56C6) positive CD15 (MMA) negative CD20 (L26) positive CD23 (1B12) negative CD30 (Ramu-H2) negative CD43 (L60) positive, focal CD45 (RP2/18) positive CD79a (11E3) positive CD138 (B-A38) negative BCL-2 (bcl-2/100/D5) positive BCL-6 (IS260P/A8) negative Cyclin D1/BCL-1 (SP4) negative MUM1 (MRQ-43) negative C-MYC (Y69) negative Kingsbury (polyclonal) negative Lambda (polyclonal) negative P53 (DO-7) negative, null pattern Ki-67 (30-9) positive, 20% Per initial office visit: He feels well in general. No trouble with swallowing. No neck pain. Appetite has been normal. No constitutional symptoms of night sweats or weight loss. Had biopsy iliac lesion. Path c/w low grade follicular lymphoma. Presents for ongoing oncologic management. Interim history: He feels well and has no complaints. Denies MS pain. No subjective change in left cervical LN. Normal appetite. PAST MEDICAL HISTORY Diagnosis Date Abdominal aortic aneurysm Essential (primary) hypertension 11/20/2022 Lymphoma in remission 1992, 2000 had radiation tx and chemo PAST SURGICAL HISTORY Procedure Laterality Date COLECTOMY PRTL W/COLOPROCTOSTOMY 04-10-13 Colonoscopy COLONOSCOPY 07/04/17 COLONOSCOPY FLX DX W/COLLJ SPEC WHEN PFRMD 02/22/2013 Colonoscopy COLONOSCOPY VIA STOMA W OR W/O BRSH/WSH 04/27/14 PAST SURGICAL HISTORY OF lymph node biopsy PROCTOSGMDSC RGD DX W/WO COLLJ SPEC BR/WA SPX 03/07/13 Rigid sigmoidoscopy ALLERGIES No Known Allergies Current Outpatient Medications Medication Sig atorvastatin (LIPITOR) 80 mg tablet Take 1 tablet by mouth once daily. aspirin 81 mg cap Take 1 tablet by mouth once daily. No current facility-administered medications for this visit. Social History Tobacco Use Smoking status: Every Day Current packs/day: 1.00 Average packs/day: 1 pack/day for 77.0 years (77.0 ttl pk-yrs) Types: Cigarettes Smokeless tobacco: Never Vaping Use Vaping status: Never Used Substance Use Topics Alcohol use: No Drug use: No Family History Problem Relation Age of Onset Cancer Mother unknown type, at age 31 other (possible overdose [Other]) Father age 61 No Known Problems Sister No Known Problems Sister No Known Problems Sister No Known Problems Brother Heart Brother ROS: Constitutional: See above. Neuro: No recent ESPINOZA, vertigo, dizziness or imbalance. No symptoms of sensory neuropathy. HEENT: No recent change in voice, vision or hearing. Resp: No cough, wheeze of hemoptysis. No shortness of breath at rest. No RAZO. CVS: No exertional chest pain, PND or orthopnea. No extremity swelling/edema. No symptoms of claudication. No painful or tender varicose veins. GI: No dysgeusia. No symptoms of stomatitis. No dysphagia or odynophagia. No reflux, n/v, change inbowel habits. No abdominal pain, bloating or distension. No black or bloody stools. : No dysuria or gross hematuria. Endo: No hot flashes. No polyuria or polydipsia. No heat or cold intolerance. Musculoskeletal: No bone, back, joint and muscular pain. Derm: No current rash. No history of jaundice. No diffuse pruritis. Heme: No unusual bleeding and unexplained bruising. Psych: Normal mood. PHYSICAL EXAM: Vitals: Blood pressure 167/99, pulse 66, temperature 36.7 C (98 F), temperature source Temporal, weight 59 kg (130 lb), SpO2 94%. Well-appearing and in no acute distress. EYES: Sclerae are anicteric bilaterally. LYMPHATIC: The previous nontender mobile enlarged lymph node left level VA is stable. There is no palpable supraclavicular denopathy. ABDOMEN: The abdomen is nondistended. Extremities: No swelling or edema. SKIN: No jaundice. 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 Past records not available. Continues tosmoke. We again discussed cessation, but he is not interested in quitting. -He made it clear he would not undergo chemotherapy again. 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 -He remains asymptomatic from the lymphoma recurrence. Again discussed option of single agent rituximab if has symptomatic progression. -Discussed the importance of calling should he become symptomatic from the cervical lymph node. Plan: -Reassess in about 6 months. -Follow up with ENT. Portions of this documentation were copied and pasted from my previous office visit note dated 03/15/2024 in order to provide a cohesive continuity of the history. The note has been reviewed and edited and updated as necessary. Tomas Fontenot DO documented in this encounterUniversity [facility] NoteHNO ID: [id number] Author: STANLEY KAISER MD Service: ? Author Type: Physician Type: Progress Notes Filed: 07/07/2024 10:09 Note Text: Patient presents with: 6 Month Exam HPI: Patient presents today for office visit for follow up. HYPERLIPIDEMIA: Patient is taking medications: Yes. Patient is watching diet: Yes. Patient denies myalgias: Yes. Patient denies gi upset: Yes Follows with Dr Fontenot for Lymphoma. Had recent recurrence. He has elected to watch since low grade he will follow with ENT as well. Last ct/pet done by Dr Fontenot: * Approximately 5.5 cm infrarenal abdominal aortic aneurysm. Based on availability of prior studies, recommend follow-up evaluation. He was seeing Dr Ortiz, vascular surgery for same previously. He is leaning towards not following it. He is aware of risks and benefits. Has an A1c that is ordered. No issue with meds. MEDICATIONS: Current Outpatient Medications Medication Sig atorvastatin (LIPITOR) 80 mg tablet Take 1 tablet by mouth once daily. aspirin 81 mg cap Take 1 tablet by mouth once daily. No current facility-administered medications for this visit. ALLERGIES: ALLERGIES No Known Allergies PAST MEDICAL HISTORY Diagnosis Date Abdominal aortic aneurysm (HCC) Essential (primary) hypertension 11/20/2022 Lymphoma in remission 1992, 2000 had radiation tx and chemo [...] other (possible overdose [Other]) Father age 61 No Known Problems Sister No Known Problems Sister No Known Problems Sister No Known Problems Brother Heart Brother Social History Tobacco Use Smoking status: Every Day Current packs/day: 1.00 Average packs/day: 1 pack/day for 77.0 years (77.0 ttl pk-yrs) Types: Cigarettes Smokeless tobacco: Never Vaping Use Vaping status: Never Used Substance Use Topics Alcohol use: No Drug use: No Reviewed current medications, allergies, past medical history, surgical history, family history and social history today. REVIEW OF SYSTEMS Declines smoking cessation. All other reviewed and negative other than HPI. HEALTH MAINTENANCE: Reviewed health maintenance issues today and recommended the following in detail. RSV Vaccine(1 - 1-dose 75+ series) Never done Influenza Vaccine(1) due on 01/16/2024 Advance Directive Discussion due on 05/17/2024 VITALS: BP 138/88 Pulse (!) 56 Wt 59 kg (130 lb) SpO2 97% BMI 23.03 kg/m? Last 4 Encounter Wt Readings: Date: Wt: 03/15/2024 59.2 kg (130 lb 8 oz) 12/29/2023 57.6 kg (127 lb) 12/15/2023 58.1 kg (128 lb) 09/22/2023 58.5 kg (129 lb) PHYSICAL EXAMINATION: General appearance: Well appearing, alert, in no acute distress, well-hydrated, well nourished. Skin: Skin color, texture, turgor normal, no suspicious rashes or lesions Head: Normocephalic, no masses, lesions, tenderness or abnormalities Eyes: Anicteric sclera. Pupils are equally round and reactive to light. Extraocular movements are intact. Lungs: Lungs clear to auscultation. No wheezing, rhonchi, rales Heart: RRR without murmur, gallop, or rubs. No ectopy Abdomen: Normal abdominal exam, Abdomen soft, non-tender. Bowel sounds normal. No masses, organomegaly Extremities: No deformities, edema, skin discoloration, clubbing or cyanosis. Good capillary refill. ASSESSMENT/PLAN: 1. Abdominal aortic aneurysm (AAA) without rupture, unspecified part (HCC) - ICD9: 441.4, ICD10: I71.40 (primary diagnosis) - refusing follow up. 2. Mixed hyperlipidemia - ICD9: 272.2, ICD10: E78.2 - Controlled - Continue current medications - ATORVASTATIN 80 MG TABLET - COMPREHENSIVE METABOLIC PANEL - COMPLETE BLOOD COUNT AND DIFFERENTIAL - LIPID PANEL BASIC 3. Essential (primary) hypertension - ICD9: 401.9, ICD10: I10 - fair control. Leave as is given age. 4. Lymphoma, unspecified body region, unspecified lymphoma type (HCC) - ICD9: 202.80, ICD10: C85.90 - per Dr Fontenot 5. Prediabetes - ICD9: 790.29, ICD10: R73.03 - follow labs. 6. Tobacco user - ICD9: 305.1, ICD10: Z72.0 - declines cessation. Stanley Kaiser RTO in six months and prn.[facility]02-21-2025 History of Present illness Narrative* Stanley Kaiser MD - 07/07/2024 9:48 AM EST Patient presents with: 6 Month Exam HPI: Patient presents today for office visit for follow up. HYPERLIPIDEMIA: Patient is taking medications: Yes. Patient is watching diet: Yes. Patient denies myalgias: Yes. Patient denies gi upset: Yes Follows with Dr Fontenot for Lymphoma. Had recent recurrence. He has elected to watch since low grade he will follow with ENT as well. Last ct/pet done by Dr Fontenot: * Approximately 5.5 cm infrarenal abdominal aortic aneurysm. Based on availability of prior studies, recommend follow-up evaluation. He was seeing Dr Ortiz, vascular surgery for same previously. He is leaning towards not following it. He is aware of risks and benefits. Has an A1c that is ordered. No issue with meds. MEDICATIONS: Current Outpatient Medications Medication Sig atorvastatin (LIPITOR) 80 mg tablet Take 1 tablet by mouth once daily. aspirin 81 mg cap Take 1 tablet by mouth once daily. No current facility-administered medications for this visit. ALLERGIES: ALLERGIES No Known Allergies PAST MEDICAL HISTORY Diagnosis Date Abdominal aortic aneurysm (HCC) Essential (primary) hypertension 11/20/2022 Lymphoma in remission 1992, 2000 had radiation tx and chemo [...] other (possible overdose [Other]) Father age 61 No Known Problems Sister No Known Problems Sister No Known Problems Sister No Known Problems Brother Heart Brother Social History Tobacco Use Smoking status: Every Day Current packs/day: 1.00 Average packs/day: 1 pack/day for 77.0 years (77.0 ttl pk-yrs) Types: Cigarettes Smokeless tobacco: Never Vaping Use Vaping status: Never Used Substance Use Topics Alcohol use: No Drug use: No Reviewed current medications, allergies, past medical history, surgical history, family history andsocial history today. REVIEW OF SYSTEMS Declines smoking cessation. All other reviewed and negative other than HPI. HEALTH MAINTENANCE: Reviewed health maintenance issues today and recommended the following in detail. RSV Vaccine(1 - 1-dose 75+ series) Never done Influenza Vaccine(1) due on 01/16/2024 Advance Directive Discussion due on 05/17/2024 VITALS: BP 138/88 Pulse (!) 56 Wt 59 kg (130 lb) SpO2 97% BMI 23.03 kg/m Last 4 Encounter Wt Readings: Date: Wt: 03/15/2024 59.2 kg (130 lb 8 oz) 12/29/2023 57.6 kg (127 lb) 12/15/2023 58.1 kg (128 lb) 09/22/2023 58.5 kg (129 lb) PHYSICAL EXAMINATION: General appearance: Well appearing, alert, in no acute distress, well-hydrated, well nourished. Skin: Skin color, texture, turgor normal, no suspicious rashes or lesions Head: Normocephalic, no masses, lesions, tenderness or abnormalities Eyes: Anicteric sclera. Pupils are equally round and reactive to light. Extraocular movements are intact. Lungs: Lungs clear to auscultation. No wheezing, rhonchi, rales Heart: RRR without murmur, gallop, or rubs. No ectopy Abdomen: Normal abdominal exam, Abdomen soft, non-tender. Bowel sounds normal. No masses, organomegaly Extremities: No deformities, edema, skin discoloration, clubbing or cyanosis. Good capillary refill. ASSESSMENT/PLAN: 1. Abdominal aortic aneurysm (AAA) without rupture, unspecified part (HCC) - ICD9: 441.4, ICD10: I71.40 (primary diagnosis) - refusing follow up. 2. Mixed hyperlipidemia - ICD9: 272.2, ICD10: E78.2 - Controlled - Continue current medications - ATORVASTATIN 80 MG TABLET - COMPREHENSIVE METABOLIC PANEL - COMPLETE BLOOD COUNT AND DIFFERENTIAL - LIPID PANEL BASIC 3. Essential (primary) hypertension - ICD9: 401.9, ICD10: I10 - fair control. Leave as is given age. 4. Lymphoma, unspecified body region, unspecified lymphoma type (HCC) - ICD9: 202.80, ICD10: C85.90 - per Dr Fontenot 5. Prediabetes - ICD9: 790.29, ICD10: R73.03 - follow labs. 6. Tobacco user - ICD9: 305.1, ICD10: Z72.0 - declines cessation. Stanley Kaiser RTO in six months and prn. documented in this encounterUniversity [facility]als [facility]10-30-2024 NoteHNO ID: [id number] Author: TOMAS FONTENOT, DO Service: ? 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 HPI: The patient is an 88-year-old male with a past medical history as outlined below. Diagnosed with lymphoma in 1992 when presented with left groin adenopathy. Received radiation. Recurred 2000 with right groin adenopathy. He didn't seek medical attention right away and when did required chemotherapy (R-CHOP x6) followed by radiation. Last seen here for follow up 05/06/2004 prior to recent recurrence. 5-6 weeks prior to presentation, noticed a hard lump posterior left cervical area. CT Neck 06/18/2023: Irregular hyperattenuating, likely enhancing soft tissue with infiltrative margins deep to the LEFT sternocleidomastoid muscle, posterior to the LEFT digastric muscle, and anterior to the LEFT trapezius muscle with possible intramuscular component along the deep surface of the sternocleidomastoid muscle measuring approximately 4.5 x 1.9 x 5.1 cm (transaxial long axis by short axis by CC oblique; 5:62 and 7:91). 1.1 x 1.1 cm well-circumscribed lesion within the skin and subcutaneous tissue of the RIGHT posterior neck, likely an epidermoid inclusion cyst (5:62). Suprahyoid Neck: Nasopharynx and oropharynx appear grossly normal. Parapharyngeal tissue planes are preserved. Oral cavity and floor of mouth appear normal within constraints of artifact from dental amalgam. Lumber Tallier spaces appear normal. Infrahyoid Neck: Hypopharynx, larynx, and imaged infraglottic trachea appear grossly normal. Imaged upper esophagus is unremarkable. Lymph nodes: No cervical lymphadenopathy by size, number or morphologic criteria. Small nonspecific lymph nodes are scattered throughout the neck. Major salivary glands: Parotid and submandibular spaces are unremarkable. Thyroid gland: Thyroid gland is homogeneous without evidence of discrete nodule. Carotid space: Patent bilateral extracranial carotid and jugular systems. Severe narrowing of the LEFT internal jugular vein beginning in the LEFT infratemporal fossa. The stylomastoid foramen. Intracranial contents: No abnormal intracranial enhancement, mass effect, or hydrocephalus. Remote LEFT caudate head infarct. Orbits, Face and Skull Base: Focal radiopacity along the LEFT medial canthus. Postoperative changes in the bilateral globes. Orbital soft tissue planes are otherwise preserved. Paranasal sinuses are clear. Mastoid air cells and middle ear cavities are clear. No evidence of an osteolytic or osteoblastic process in the skull base. Bones: Diffuse osteopenia, likely age related. No suspicious osseous lesions in the imaged calvarium, skull base and spine. Normal cervicothoracic alignment. Multilevel mild spinal canal and multilevel up to moderate neural foraminal degenerative changes. . Temporomandibular joints are maintained. Lungs: Imaged lung apices are clear of focal consolidation or mass. Upper lobe moderate centrilobular emphysematous changes. Was referred to Dr. Whyte. Underwent FNA of left neck mass on 07/19/2023. 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 Comment demonstrated that the flow cytometry revealed the aspirate material was B-cell lymphoma that was CD10 positive. The immunophenotype suggested follicular center origin. AE1-3 (AE1/AE3/PCK26) negative CD3 (PS1) negative CD5 (SP10) negative CD10 (56C6) positive CD15 (MMA) negative CD20 (L26) positive CD23 (1B12) negative CD30 (Ramu-H2) negative CD43 (L60) positive, focal CD45 (RP2/18) positive CD79a (11E3) positive CD138 (B-A38) negative BCL-2 (bcl-2/100/D5) positive BCL-6 (FF211V/A8) negative Cyclin D1/BCL-1 (SP4) negative MUM1 (MRQ-43) negative C-MYC (Y69) negative Kingsbury (polyclonal) negative Lambda (polyclonal) negative P53 (DO-7) negative, null pattern Ki-67 (30-9) positive, 20% Per initial office visit: He feels well in general. No trouble with swallowing. No neck pain. Appetite has been normal. No constitutional symptoms of night sweats or weight loss. Had biopsy iliac lesion. Path c/w low grade follicular lymphoma. Presents for ongoing oncologic management. Interim history: He offers no complaints today. No constitutional symptoms. No musculoskeletal pain. Remains active. PAST MEDICAL HISTORY Diagnosis Date Abdominal aortic aneurysm (HCC) Essential (primary) hypertension 11/20/2022 Lymphoma in remission 1992, 2000 had radiation tx and chemo PAST SURGICAL HISTORY Procedure Laterality Date COLECTOMY PRTL W/COLOPROCTOSTOMY 04-10-13 Colonoscopy COLONOSCOPY 07/04/17 COLONOSCOPY FLX DX W/COLLJ SPEC WHEN PFRMD 02/22/2013 Colonoscopy COLONOSCOPY VIA STOMA W OR W/O BRSH/WSH 04/27/14 PAST SURGICAL HISTORY OF lymph node biopsy PROCTOSGMDSC RGD DX W/WO COLLJ SPEC BR/W (more content not included)...[facility]10-30-2024 History of Present illness Narrative* Tomas Fontenot, DO - 03/15/2024 9:33 AM EDT 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 HPI: The patient is an 88-year-old male with a past medical history as outlined below. Diagnosed with lymphoma in 1992 when presented with left groin adenopathy. Received radiation. Recurred 2000 with right groin adenopathy. He didn't seek medical attention right away and when didrequired chemotherapy (R-CHOP x6) followed by radiation. Last seen here for follow up 05/06/2004 prior to recent recurrence. 5-6 weeks prior to presentation, noticed a hard lump posterior left cervical area. CT Neck 06/18/2023: Irregular hyperattenuating, likely enhancing soft tissue with infiltrative margins deep to the LEFTsternocleidomastoid muscle, posterior to the LEFT digastric muscle, and anterior to the LEFT trapezius muscle with possible intramuscular component along the deep surface of the sternocleidomastoid muscle measuring approximately 4.5 x 1.9 x 5.1 cm (transaxial long axis by short axis by CC oblique; 5:62 and 7:91). 1.1 x 1.1 cm well-circumscribed lesion within the skin and subcutaneous tissue of the RIGHT posterior neck, likely an epidermoid inclusion cyst (5:62). Suprahyoid Neck: Nasopharynx and oropharynx appear grossly normal. Parapharyngeal tissue planes are preserved. Oral cavity and floor of mouth appear normal within constraints of artifact from dental amalgam. Lumber Tallier spaces appear normal. Infrahyoid Neck: Hypopharynx, larynx, and imaged infraglottic trachea appear grossly normal. Imaged upper esophagus is unremarkable. Lymph nodes: No cervical lymphadenopathy by size, number or morphologic criteria. Small nonspecific lymph nodes are scattered throughout the neck. Major salivary glands: Parotid and submandibular spaces are unremarkable. Thyroid gland: Thyroid gland is homogeneous without evidence of discrete nodule. Carotid space: Patent bilateral extracranial carotid and jugular systems. Severe narrowing of the LEFT internal jugular vein beginning in the LEFT infratemporal fossa. The stylomastoid foramen. Intracranial contents: No abnormal intracranial enhancement, mass effect, or hydrocephalus. Remote LEFT caudate head infarct. Orbits, Face and Skull Base: Focal radiopacity along the LEFT medial canthus. Postoperative changes in the bilateral globes. Orbital soft tissue planes are otherwise preserved. Paranasal sinuses are clear. Mastoid air cells and middle ear cavities are clear. No evidence of an osteolytic or osteoblastic process in the skull base. Bones: Diffuse osteopenia, likely age related. No suspicious osseous lesions in the imaged calvarium, skull base and spine. Normal cervicothoracic alignment. Multilevel mild spinal canal and multilevel up to moderate neural foraminal degenerative changes. . Temporomandibular joints are maintained. Lungs: Imaged lung apices are clear of focal consolidation or mass. Upper lobe moderate centrilobular emphysematous changes. Was referred to Dr. Whyte. Underwent FNA of left neck mass on 07/19/2023. 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 Comment demonstrated that the flow cytometry revealed the aspirate material was B-cell lymphoma that was CD10 positive. The immunophenotype suggested follicular center origin. AE1-3 (AE1/AE3/PCK26) negative CD3 (PS1) negative CD5 (SP10) negative CD10 (56C6) positive CD15 (MMA) negative CD20 (L26) positive CD23 (1B12) negative CD30 (Ramu-H2) negative CD43 (L60) positive, focal CD45 (RP2/18) positive CD79a (11E3) positive CD138 (B-A38) negative BCL-2 (bcl-2/100/D5) positive BCL-6 (CU008B/A8) negative Cyclin D1/BCL-1 (SP4) negative MUM1 (MRQ-43) negative C-MYC (Y69) negative Kingsbury (polyclonal) negative Lambda (polyclonal) negative P53 (DO-7) negative, null pattern Ki-67 (30-9) positive, 20% Per initial office visit: He feels well in general. No trouble with swallowing. No neck pain. Appetite has been normal. No constitutional symptoms of night sweats or weight loss. Had biopsy iliac lesion. Path c/w low grade follicular lymphoma. Presents for ongoing oncologic management. Interim history: He offers no complaints today. No constitutional symptoms. No musculoskeletal pain. Remains active. PAST MEDICAL HISTORY Diagnosis Date Abdominal aortic aneurysm (HCC) Essential (primary) hypertension 11/20/2022 Lymphoma in remission 1992, 2000 had radiation tx and chemo PAST SURGICAL HISTORY Procedure Laterality Date COLECTOMY PRTL W/COLOPROCTOSTOMY 04-10-13 Colonoscopy COLONOSCOPY 07/04/17 COLONOSCOPY FLX DX W/COLLJ SPEC WHEN PFRMD 02/22/2013 Colonoscopy COLONOSCOPY VIA STOMA W OR W/O BRSH/WSH 04/27/14 PAST SURGICAL HISTORY OF lymph node biopsy PROCTOSGMDSC RGD DX W/WO COLLJ SPEC BR/WA SPX 03/07/13 Rigid sigmoidoscopy ALLERGIES No Known Allergies Current Outpatient Medications Medication Sig atorvastatin (LIPITOR) 80 mg tablet Take 1 tablet by mouth once daily. aspirin 81 mg cap Take 1 tablet by mouth once daily. No current facility-administered medications for this visit. Social History Tobacco Use Smoking status: Every Day Current packs/day: 1.00 Average packs/day: 1 pack/day for 77.0 years (77.0 ttl pk-yrs) Types: Cigarettes Smokeless tobacco: Never Vaping Use Vaping status: Never Used Substance Use Topics Alcohol use: No Drug use: No Family History Problem Relation Age of Onset Cancer Mother unknown type, at age 31 other (possible overdose [Other]) Father age 61 No Known Problems Sister No Known Problems Sister No Known Problems Sister No Known Problems Brother Heart Brother ROS: Constitutional: See above. Neuro: No recent ESPINOZA, vertigo, dizziness or imbalance. No symptoms of sensory neuropathy. HEENT: No recent change in voice, vision or hearing. Resp: No cough, wheeze of hemoptysis. No shortness of breath at rest. No RAZO. CVS: No exertional chest pain, PND or orthopnea. No extremity swelling/edema. No symptoms of claudication. No painful or tender varicose veins. GI: No dysgeusia. No symptoms of stomatitis. No dysphagia or odynophagia. No reflux, n/v, change inbowel habits. No abdominal pain, bloating or distension. No black or bloody stools. : No dysuria or gross hematuria. Endo: No hot flashes. No polyuria or polydipsia. No heat or cold intolerance. Musculoskeletal: No bone, back, joint and muscular pain. Derm: No current rash. No history of jaundice. No diffuse pruritis. Heme: No unusual bleeding and unexplained bruising. Psych: Normal mood. PHYSICAL EXAM: Vitals: Blood pressure 156/83, pulse 63, temperature 36.1 C (96.9 F), temperature source Temporal, weight 59.2 kg (130 lb 8 oz), SpO2 95%. Well-appearing and in no acute distress. EYES: Sclerae are anicteric bilaterally. LYMPHATIC: The previous nontender mobile enlarged lymph node left level VA is now barely palpable. There is no palpable supraclavicular denopathy. ABDOMEN: The abdomen is nondistended. Extremities: No swelling or edema. SKIN: No jaundice. LABS: Latest Ref [facility] 03/15/2024 WBC 3.70 - 11.00 k/uL 8.12 RBC 4.20 - 6.00 m/uL 4.64 Hemoglobin 13.0 - 17.0 g/dL 14.2 Hematocrit 39.0 - 51.0 % 43.1 MCV 80.0 - 100.0 fL 92.9 MCH 26.0 - 34.0 pg 30.6 MCHC 30.5 - 36.0 g/dL 32.9 RDW-CV 11.5 - 15.0 % 12.7 Platelet Count 150 - 400 k/uL 250 MPV 9.0 - 12.7 fL 9.6 Neut% % 53.9 Abs Neut (ANC) 1.45 - 7.50 k/uL 4.38 Lymph% % 31.8 Abs Lymph 1.00 - 4.00 k/uL 2.58 Mills% % 10.1 Abs Mills <0.87 k/uL 0.82 Eosin% % 3.1 Abs Eosin <0.46 k/uL 0.25 Baso% % 0.9 Abs Baso <0.11 k/uL 0.07 Immature Gran % % 0.2 IMMATURE GRANS (ABS) <0.10 k/uL <0.03 NRBC /100 WBC 0.0 Absolute nRBC <0.01 k/uL <0.01 DTYPE Auto ASSESSMENT/PLAN: (C82.91) 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 Past records not available. He has very good functional status. Continues to smoke. He is not interested in quitting, I have been smoking for 77 years so no sense trying to quit now. -He made it clear he would not undergo chemotherapy again. -LDH was normal. No constitutional symptoms. 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 -He is asymptomatic from the lymphoma recurrence. He remains low-grade. Discussed option of single agent rituximab versus expectant management. After discussion of the risks and benefits, he opted for expectant management. -Discussed the importance of calling should he become symptomatic from the cervical lymph node. Plan: -Reassess in about 6 months. -Follow up with ENT. Portions of this documentation were copied and pasted from previous office visit notes in order to provide a cohesive continuity of the history. The note has been reviewed and edited and updated as necessary. I spent a total of 15 minutes on the date of the service which included preparing to see the patient, [id number] patient care, completing clinical documentation, performing a medically appropriate examination, communicating with other HCPs (not separately reported), and communicating results to the patient/family/caregiver. Tomas Fontenot DO documented in this encounter[facility] Telephone encounter Note * Telephone Encounter - Shruti Galeano APRN.CNP - 12/31/2023 2:39 PM EDT The following approved medication requests have been transmitted electronically. Requested Prescriptions Pending Prescriptions Disp Refills atorvastatin (LIPITOR) 80 mg tablet 90 tablet 1 Sig: Take 1 tablet by mouth once daily. Shruti Galeano APRN.CNP [facility]08-16-2024 Miscellaneous Notes* Telephone Encounter - Shruti Galeano APRN.CNP - 12/31/2023 2:39 PM EDT The following approved medication requests have been transmitted electronically. Requested Prescriptions Pending Prescriptions Disp Refills atorvastatin (LIPITOR) 80 mg tablet 90 tablet 1 Sig: Take 1 tablet by mouth once daily. Shruti Galeano APRN.CNP * Telephone Encounter - Carmelita Christian LPN - 12/31/2023 2:23 PM EDT Prescription Refill Information The patient has been identified by name and date of : Yes Caregiver verified no other encounters exist for this prescription request: Yes Caregiver confirmed with patient/requestor that no other refills are due, in the near future, with this provider at this time: Yes The last office visit in the department: 12/29/23 Does the patient have a future office visit with this provider/department: Yes Requested Prescriptions Pending Prescriptions Disp Refills atorvastatin (LIPITOR) 80 mg tablet 90 tablet 1 Sig: Take 1 tablet by mouth once daily. Carmelita Christian LPN December 31, 2023 2:26 PM documented in this encounterUniversity [facility]08-16-2024 Telephone encounter Note * Telephone Encounter - Carmelita Christian LPN - 12/31/2023 2:23 PM EDT Prescription Refill Information The patient has been identified by name and date of : Yes Caregiver verified no other encounters exist for this prescription request: Yes Caregiver confirmed with patient/requestor that no other refills are due, in the near future, with this provider at this time: Yes The last office visit in the department: 12/29/23 Does the patient have a future office visit with this provider/department: Yes Requested Prescriptions Pending Prescriptions Disp Refills atorvastatin (LIPITOR) 80 mg tablet 90 tablet 1 Sig: Take 1 tablet by mouth once daily. Carmelita Christian LPN December 31, 2023 2:26 PM [facility]08-14-2024 Instructions* Patient Instructions* Stanley Kaiser MD - 12/29/2023 10:32 AM EDT Due to see Dr Ortiz documented in this encounterUniversity Hospitals [facility]08-14-2024 NoteHNO ID: [id number] Author: STANLEY KAISER MD Service: ? Author Type: Physician Type: Progress Notes Filed: 12/29/2023 10:37 Note Text: Patient presents with: 6 Month Exam HPI: Patient presents today for office visit for follow up. No concerns today. HLD: Continues on Atorvastatin 80 mg daily. No myalgias. Follows with Hem/Onc. They are following closely. No new areas noted. He feels well. Continues on asa 81 mg. Hx of AAA. Denies chest pain and shortness of breath. Smoking 1 PPD. Not interested in quitting. Has not followed recently with Dr Ortiz Latest Ref Rng 12/15/2023 WBC 3.70 - 11.00 k/uL 8.90 RBC 4.20 - 6.00 m/uL 4.50 Hemoglobin 13.0 - 17.0 g/dL 13.9 Hematocrit 39.0 - 51.0 % 41.6 MCV 80.0 - 100.0 fL 92.4 MCH 26.0 - 34.0 pg 30.9 MCHC 30.5 - 36.0 g/dL 33.4 RDW-CV 11.5 - 15.0 % 12.7 Platelet Count 150 - 400 k/uL 231 MPV 9.0 - 12.7 fL 9.9 Neut% % 57.3 Abs Neut (ANC) 1.45 - 7.50 k/uL 5.10 Lymph% % 30.0 Abs Lymph 1.00 - 4.00 k/uL 2.67 Mills% % 9.7 Abs Mills <0.87 k/uL 0.86 Eosin% % 1.9 Abs Eosin <0.46 k/uL 0.17 Baso% % 0.8 Abs Baso <0.11 k/uL 0.07 Immature Gran % % 0.3 IMMATURE GRANS (ABS) <0.10 k/uL 0.03 NRBC /100 WBC 0.0 Absolute nRBC <0.01 k/uL <0.01 DTYPE Auto Protein, Total 6.3 - 8.0 g/dL 7.2 Albumin 3.9 - 4.9 g/dL 4.3 Calcium 8.5 - 10.2 mg/dL 9.5 Bilirubin, Total 0.2 - 1.3 mg/dL 0.7 Alkaline Phosphatase 38 - 113 U/L 83 AST 14 - 40 U/L 16 ALT 10 - 54 U/L 17 Glucose 74 - 99 mg/dL 102 (H) BUN 9 - 24 mg/dL 20 Creatinine 0.73 - 1.22 mg/dL 0.83 Sodium 136 - 144 mmol/L 139 Potassium 3.7 - 5.1 mmol/L 4.3 Chloride 98 - 107 mmol/L 103 CO2 22 - 30 mmol/L 28 Anion Gap 8 - 15 mmol/L 8 eGFR >=60 mL/min/1.73m? 85 Hemoglobin A1C 4.3 - 5.6 % 5.7 (H) Estimated Average Glucose mg/dL 117 LD 135 - 225 U/L 141 Legend: (H) High MEDICATIONS: Current Outpatient Medications Medication Sig atorvastatin (LIPITOR) 80 mg tablet Take 1 tablet by mouth once daily. aspirin 81 mg cap Take 1 tablet by mouth once daily. No current facility-administered medications for this visit. ALLERGIES: ALLERGIES No Known Allergies PAST MEDICAL HISTORY No date: Abdominal aortic aneurysm (HCC) 11/20/2022: Essential (primary) hypertension 1992, 2000: Lymphoma in remission (HCC) Comment: had radiation tx and chemo PAST SURGICAL HISTORY 04-10-13: COLECTOMY PRTL W/COLOPROCTOSTOMY Comment: Colonoscopy 07/04/17: COLONOSCOPY 02/22/2013: COLONOSCOPY FLX DX W/COLLJ SPEC WHEN PFRMD Comment: Colonoscopy 04/27/14: COLONOSCOPY VIA STOMA W OR W/O BRSH/WSH No date: PAST SURGICAL HISTORY OF Comment: lymph node biopsy 03/07/13: PROCTOSGMDSC RGD DX W/WO COLLJ SPEC BR/WA SPX Comment: Rigid sigmoidoscopy FAMILY HISTORY Problem Relation Age of Onset Cancer Mother unknown type, at age 31 other (possible overdose [Other]) Father age 61 No Known Problems Sister No Known Problems Sister No Known Problems Sister No Known Problems Brother Heart Brother Social History Tobacco Use Smoking status: Every Day Packs/day: 1.00 Years: 77.00 Additional pack years: 0.00 Total pack years: 77.00 Types: Cigarettes Smokeless tobacco: Never Vaping Use Vaping Use: Never used Substance Use Topics Alcohol use: No Drug use: No Reviewed current medications, allergies, past medical history, surgical history, family history and social history today. REVIEW OF SYSTEMS No falls. Still very active. No new memory issues. All other reviewed and negative other than HPI. HEALTH MAINTENANCE: Reviewed health maintenance issues today and recommended the following in detail. Covid-19 Vaccine(1) Never done Pneumococcal Vaccine: 65+(1 of 2 - PCV) Never done Depression Screening Never done Anxiety Screening Never done DTaP,Tdap,Td Vaccine(1 - Tdap) Never done Shingrix Vaccine(1 of 2) Never done VITALS: BP 124/66 Pulse 62 Ht 160 cm (5' 3) Wt 57.6 kg (127 lb) SpO2 96% BMI 22.50 kg/m? Last 4 Encounter Wt Readings: Date: Wt: 12/29/2023 57.6 kg (127 lb) 12/15/2023 58.1 kg (128 lb) 09/22/2023 58.5 kg (129 lb) 08/30/2023 59.9 kg (132 lb) PHYSICAL EXAMINATION: General appearance: Well appearing, [...] discoloration, clubbing or cyanosis. Good capillary refill. Musculoskeletal: No joint swelling, deformity, or tenderness ASSESSMENT/PLAN: 1. Essential (primary) hypertension - ICD9: 401.9, ICD10: I10 (primary diagnosis) - Controlled - Cont (more content not included)...[facility] [id number] History of Present illness Narrative* Stanley Kaiser MD - 12/29/2023 9:50 AM EDT Patient presents with: 6 Month Exam HPI: Patient presents today for office visit for follow up. No concerns today. HLD: Continues on Atorvastatin 80 mg daily. No myalgias. Follows with Hem/Onc. They are following closely. No new areas noted. He feels well. Continues on asa 81 mg. Hx of AAA. Denies chest pain and shortness of breath. Smoking 1 PPD. Not interested in quitting. Has not followed recently with Dr Ortiz Latest Ref Rng 12/15/2023 WBC 3.70 - 11.00 k/uL 8.90 RBC 4.20 - 6.00 m/uL 4.50 Hemoglobin 13.0 - 17.0 g/dL 13.9 Hematocrit 39.0 - 51.0 % 41.6 MCV 80.0 - 100.0 fL 92.4 MCH 26.0 - 34.0 pg 30.9 MCHC 30.5 - 36.0 g/dL 33.4 RDW-CV 11.5 - 15.0 % 12.7 Platelet Count 150 - 400 k/uL 231 MPV 9.0 - 12.7 fL 9.9 Neut% % 57.3 Abs Neut (ANC) 1.45 - 7.50 k/uL 5.10 Lymph% % 30.0 Abs Lymph 1.00 - 4.00 k/uL 2.67 Mills% % 9.7 Abs Mills <0.87 k/uL 0.86 Eosin% % 1.9 Abs Eosin <0.46 k/uL 0.17 Baso% % 0.8 Abs Baso <0.11 k/uL 0.07 Immature Gran % % 0.3 IMMATURE GRANS (ABS) <0.10 k/uL 0.03 NRBC /100 WBC 0.0 Absolute nRBC <0.01 k/uL <0.01 DTYPE Auto Protein, Total 6.3 - 8.0 g/dL 7.2 Albumin 3.9 - 4.9 g/dL 4.3 Calcium 8.5 - 10.2 mg/dL 9.5 Bilirubin, Total 0.2 - 1.3 mg/dL 0.7 Alkaline Phosphatase 38 - 113 U/L 83 AST 14 - 40 U/L 16 ALT 10 - 54 U/L 17 Glucose 74 - 99 mg/dL 102 (H) BUN 9 - 24 mg/dL 20 Creatinine 0.73 - 1.22 mg/dL 0.83 Sodium 136 - 144 mmol/L 139 Potassium 3.7 - 5.1 mmol/L 4.3 Chloride 98 - 107 mmol/L 103 CO2 22 - 30 mmol/L 28 Anion Gap 8 - 15 mmol/L 8 eGFR >=60 mL/min/1.73m 85 Hemoglobin A1C 4.3 - 5.6 % 5.7 (H) Estimated Average Glucose mg/dL 117 LD 135 - 225 U/L 141 Legend: (H) High MEDICATIONS: Current Outpatient Medications Medication Sig atorvastatin (LIPITOR) 80 mg tablet Take 1 tablet by mouth once daily. aspirin 81 mg cap Take 1 tablet by mouth once daily. No current facility-administered medications for this visit. ALLERGIES: ALLERGIES No Known Allergies PAST MEDICAL HISTORY No date: Abdominal aortic aneurysm (HCC) 11/20/2022: Essential (primary) hypertension 1992, 2000: Lymphoma in remission (HCC) Comment: had radiation tx and chemo PAST SURGICAL HISTORY 04-10-13: COLECTOMY PRTL W/COLOPROCTOSTOMY Comment: Colonoscopy 07/04/17: COLONOSCOPY 02/22/2013: COLONOSCOPY FLX DX W/COLLJ SPEC WHEN PFRMD Comment: Colonoscopy 04/27/14: COLONOSCOPY VIA STOMA W OR W/O [facility] No date: PAST SURGICAL HISTORY OF Comment: lymph node biopsy 03/07/13: PROCTOSGMDSC RGD DX W/WO COLLJ SPEC BR/WA SPX Comment: Rigid sigmoidoscopy FAMILY HISTORY Problem Relation Age of Onset Cancer Mother unknown type, at age 31 other (possible overdose [Other]) Father age 61 No Known Problems Sister No Known Problems Sister No Known Problems Sister No Known Problems Brother Heart Brother Social History Tobacco Use Smoking status: Every Day Packs/day: 1.00 Years: 77.00 Additional pack years: 0.00 Total pack years: 77.00 Types: Cigarettes Smokeless tobacco: Never Vaping Use Vaping Use: Never used Substance Use Topics Alcohol use: No Drug use: No Reviewed current medications, allergies, past medical history, surgical history, family history andsocial history today. REVIEW OF SYSTEMS No falls. Still very active. No new memory issues. All other reviewed and negative other than HPI. HEALTH MAINTENANCE: Reviewed health maintenance issues today and recommended the following in detail. Covid-19 Vaccine(1) Never done Pneumococcal Vaccine: 65+(1 of 2 - PCV) Never done Depression Screening Never done Anxiety Screening Never done DTaP,Tdap,Td Vaccine(1 - Tdap) Never done Shingrix Vaccine(1 of 2) Never done VITALS: BP 124/66 Pulse 62 Ht 160 cm (5' 3) Wt 57.6 kg (127 lb) SpO2 96% BMI 22.50 kg/m Last 4 Encounter Wt Readings: Date: Wt: 12/29/2023 57.6 kg (127 lb) 12/15/2023 58.1 kg (128 lb) 09/22/2023 58.5 kg (129 lb) 08/30/2023 59.9 kg (132 lb) PHYSICAL EXAMINATION: General appearance: Well appearing, [...] discoloration, clubbing or cyanosis. Good capillary refill. Musculoskeletal: No joint swelling, deformity, or tenderness ASSESSMENT/PLAN: 1. Essential (primary) hypertension - ICD9: 401.9, ICD10: I10 (primary diagnosis) - Controlled - Continue current medications 2. Abdominal aortic aneurysm (AAA) without rupture, unspecified part (HCC) - ICD9: 441.4, ICD10: I71.40 - reinforced follow up. - CONSULT TO VASCULAR SURGERY 3. Lymphoma, unspecified body region, unspecified lymphoma type (HCC) - ICD9: 202.80, ICD10: C85.90 - follow with Dr Fontenot. 4. Prediabetes - ICD9: 790.29, ICD10: R73.03 - watch diet. Recheck labs in six months - HEMOGLOBIN A1C Stanley Kaiser MD documented in [facility] encounter[facility] Telephone encounter Note * Telephone Encounter - Becky Aly MA - 12/16/2023 10:46 AM EDT Patient informed and verbalized understanding. Becky Aly MA [facility]08-01-2024 Miscellaneous Notes* Telephone Encounter - Becky Aly MA - 12/16/2023 10:46 AM EDT Patient informed and verbalized understanding. Becky Aly MA * Telephone Encounter - Stanley Kaiser MD - 12/16/2023 8:24 AM EDT Let him know his average sugars are stable-(hga1c) documented in this encounterUniversity [facility] Telephone encounter Note * Telephone Encounter - Stanley Kaiser MD - 12/16/2023 8:24 AM EDT Let him know his average sugars are stable-(hga1c) [facility]07-31-[facility]24 NoteHNO ID: [id number] Author: TOMAS FONTENOT, DO Service: ? 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 HPI: The patient is an 88-year-old male with a past medical history as outlined below. Diagnosed with lymphoma in 1992 when presented with left groin adenopathy. Received radiation. Recurred 2000 with right groin adenopathy. He didn't seek medical attention right away and when did required chemotherapy (R-CHOP x6) followed by radiation. Last seen here for follow up 05/06/2004 prior to recent recurrence. 5-6 weeks prior to presentation, noticed a hard lump posterior left cervical area. CT Neck 06/18/2023: Irregular hyperattenuating, likely enhancing soft tissue with infiltrative margins deep to the LEFT sternocleidomastoid muscle, posterior to the LEFT digastric muscle, and anterior to the LEFT trapezius muscle with possible intramuscular component along the deep surface of the sternocleidomastoid muscle measuring approximately 4.5 x 1.9 x 5.1 cm (transaxial long axis by short axis by CC oblique; 5:62 and 7:91). 1.1 x 1.1 cm well-circumscribed lesion within the skin and subcutaneous tissue of the RIGHT posterior neck, likely an epidermoid inclusion cyst (5:62). Suprahyoid Neck: Nasopharynx and oropharynx appear grossly normal. Parapharyngeal tissue planes are preserved. Oral cavity and floor of mouth appear normal within constraints of artifact from dental amalgam. Lumber Tallier spaces appear normal. Infrahyoid Neck: Hypopharynx, larynx, and imaged infraglottic trachea appear grossly normal. Imaged upper esophagus is unremarkable. Lymph nodes: No cervical lymphadenopathy by size, number or morphologic criteria. Small nonspecific lymph nodes are scattered throughout the neck. Major salivary glands: Parotid and submandibular spaces are unremarkable. Thyroid gland: Thyroid gland is homogeneous without evidence of discrete nodule. Carotid space: Patent bilateral extracranial carotid and jugular systems. Severe narrowing of the LEFT internal jugular vein beginning in the LEFT infratemporal fossa. The stylomastoid foramen. Intracranial contents: No abnormal intracranial enhancement, mass effect, or hydrocephalus. Remote LEFT caudate head infarct. Orbits, Face and Skull Base: Focal radiopacity along the LEFT medial canthus. Postoperative changes in the bilateral globes. Orbital soft tissue planes are otherwise preserved. Paranasal sinuses are clear. Mastoid air cells and middle ear cavities are clear. No evidence of an osteolytic or osteoblastic process in the skull base. Bones: Diffuse osteopenia, likely age related. No suspicious osseous lesions in the imaged calvarium, skull base and spine. Normal cervicothoracic alignment. Multilevel mild spinal canal and multilevel up to moderate neural foraminal degenerative changes. . Temporomandibular joints are maintained. Lungs: Imaged lung apices are clear of focal consolidation or mass. Upper lobe moderate centrilobular emphysematous changes. Was referred to Dr. Whyte. Underwent FNA of left neck mass on 07/19/2023. 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 Comment demonstrated that the flow cytometry revealed the aspirate material was B-cell lymphoma that was CD10 positive. The immunophenotype suggested follicular center origin. AE1-3 (AE1/AE3/PCK26) negative CD3 (PS1) negative CD5 (SP10) negative CD10 (56C6) positive CD15 (MMA) negative CD20 (L26) positive CD23 (1B12) negative CD30 (Ramu-H2) negative CD43 (L60) positive, focal CD45 (RP2/18) positive CD79a (11E3) positive CD138 (B-A38) negative BCL-2 (bcl-2/100/D5) positive BCL-6 (RK241L/A8) negative Cyclin D1/BCL-1 (SP4) negative MUM1 (MRQ-43) negative C-MYC (Y69) negative [place]bury (polyclonal) negative Lambda (polyclonal) negative P53 (DO-7) negative, null pattern Ki-67 (30-9) positive, 20% Per initial office visit: He feels well in general. No trouble with swallowing. No neck pain. Appetite has been normal. No constitutional symptoms of night sweats or weight loss. Had biopsy iliac lesion. Path c/w low grade follicular lymphoma. Presents for ongoing oncologic management. Interim history: He offers no complaints today. 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 Denies MS pain. No constitutional symptoms. PAST MEDICAL HISTORY No date: Abdominal aortic aneurysm (HCC) 11/20/2022: Essential (primary) hypertension 1992, 2000: Lymphoma in remission (HCC) Comment: had radiation tx and chemo PAST SURGICAL HISTORY 04-10-13: COLECTOMY PRTL W/COLOPROCTOSTOMY Comment: Colonoscopy 07/04/17: COLONOSCOPY 02/22/2013: COLONOSCOPY FLX DX W/COLLJ SPEC WHEN PFRMD Comment: Colonoscopy 04/27/14: COLONOSCOPY VIA STOMA W OR W/O BRSH/WSH No date: PAST SURGICAL HISTORY OF Comment: lymph node biopsy 03/07/13: PROCTOS (more content not included)...[facility] 12-15-2023 History of Present illness Narrative* Tomas Fontenot, - 12/15/2023 9:41 AM EDT 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 HPI: The patient is an 88-year-old male with a past medical history as outlined below. Diagnosed with lymphoma in 1992 when presented with left groin adenopathy. Received radiation. Recurred 2000 with right groin adenopathy. He didn't seek medical attention right away and when didrequired chemotherapy (R-CHOP x6) followed by radiation. Last seen here for follow up 05/06/2004 prior to recent recurrence. 5-6 weeks prior to presentation, noticed a hard lump posterior left cervical area. CT Neck 06/18/2023: Irregular hyperattenuating, likely enhancing soft tissue with infiltrative margins deep to the LEFTsternocleidomastoid muscle, posterior to the LEFT digastric muscle, and anterior to the LEFT trapezius muscle with possible intramuscular component along the deep surface of the sternocleidomastoid muscle measuring approximately 4.5 x 1.9 x 5.1 cm (transaxial long axis by short axis by CC oblique; 5:62 and 7:91). 1.1 x 1.1 cm well-circumscribed lesion within the skin and subcutaneous tissue of the RIGHT posterior neck, likely an epidermoid inclusion cyst (5:62). Suprahyoid Neck: Nasopharynx and oropharynx appear grossly normal. Parapharyngeal tissue planes are preserved. Oral cavity and floor of mouth appear normal within constraints of artifact from dental amalgam. Lumber Tallier spaces appear normal. Infrahyoid Neck: Hypopharynx, larynx, and imaged infraglottic trachea appear grossly normal. Imaged upper esophagus is unremarkable. Lymph nodes: No cervical lymphadenopathy by size, number or morphologic criteria. Small nonspecific lymph nodes are scattered throughout the neck. Major salivary glands: Parotid and submandibular spaces are unremarkable. Thyroid gland: Thyroid gland is homogeneous without evidence of discrete nodule. Carotid space: Patent bilateral extracranial carotid and jugular systems. Severe narrowing of the LEFT internal jugular vein beginning in the LEFT infratemporal fossa. The stylomastoid foramen. Intracranial contents: No abnormal intracranial enhancement, mass effect, or hydrocephalus. Remote LEFT caudate head infarct. Orbits, Face and Skull Base: Focal radiopacity along the LEFT medial canthus. Postoperative changes in the bilateral globes. Orbital soft tissue planes are otherwise preserved. Paranasal sinuses are clear. Mastoid air cells and middle ear cavities are clear. No evidence of an osteolytic or osteoblastic process in the skull base. Bones: Diffuse osteopenia, likely age related. No suspicious osseous lesions in the imaged calvarium, skull base and spine. Normal cervicothoracic alignment. Multilevel mild spinal canal and multilevel up to moderate neural foraminal degenerative changes. . Temporomandibular joints are maintained. Lungs: Imaged lung apices are clear of focal consolidation or mass. Upper lobe moderate centrilobular emphysematous changes. Was referred to Dr. Whyte. Underwent FNA of left neck mass on 07/19/2023. 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 Comment demonstrated that the flow cytometry revealed the aspirate material was B-cell lymphoma that was CD10 positive. The immunophenotype suggested follicular center origin. AE1-3 (AE1/AE3/PCK26) negative CD3 (PS1) negative CD5 (SP10) negative CD10 (56C6) positive CD15 (MMA) negative CD20 (L26) positive CD23 (1B12) negative CD30 (Ramu-H2) negative CD43 (L60) positive, focal CD45 (RP2/18) positive CD79a (11E3) positive CD138 (B-A38) negative BCL-2 (bcl-2/100/D5) positive BCL-6 (EG330J/A8) negative Cyclin D1/BCL-1 (SP4) negative MUM1 (MRQ-43) negative C-MYC (Y69) negative [place] (polyclonal) negative Lambda (polyclonal) negative P53 (DO-7) negative, null pattern Ki-67 (30-9) positive, 20% Per initial office visit: He feels well in general. No trouble with swallowing. No neck pain. Appetite has been normal. No constitutional symptoms of night sweats or weight loss. Had biopsy iliac lesion. Path c/w low grade follicular lymphoma. Presents for ongoing oncologic management. Interim history: He offers no complaints today. 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 Denies MS pain. No constitutional symptoms. PAST MEDICAL HISTORY No date: Abdominal aortic aneurysm (HCC) 11/20/2022: Essential (primary) hypertension 1992, 2000: Lymphoma in remission (HCC) Comment: had radiation tx and chemo PAST SURGICAL HISTORY 04-10-13: COLECTOMY PRTL W/COLOPROCTOSTOMY Comment: Colonoscopy 07/04/17: COLONOSCOPY 02/22/2013: COLONOSCOPY FLX DX W/COLLJ SPEC WHEN PFRMD Comment: Colonoscopy 04/27/14: COLONOSCOPY VIA STOMA W OR W/O BRSH/WSH No date: PAST SURGICAL HISTORY OF Comment: lymph node biopsy 03/07/13: PROCTOSGMDSC RGD DX W/WO COLLJ SPEC BR/WA SPX Comment: Rigid sigmoidoscopy ALLERGIES No Known Allergies Current Outpatient Medications Medication Sig atorvastatin (LIPITOR) 80 mg tablet Take 1 tablet by mouth once daily. aspirin 81 mg cap Take 1 tablet by mouth once daily. No current facility-administered medications for this visit. Social History Tobacco Use Smoking status: Every Day Packs/day: 1.00 Years: 77.00 Additional pack years: 0.00 Total pack years: 77.00 Types: Cigarettes Smokeless tobacco: Never Vaping Use Vaping Use: Never used Substance Use Topics Alcohol use: No Drug use: No Family History Problem Relation Age of Onset Cancer Mother unknown type, at age 31 other (possible overdose [Other]) Father age 61 No Known Problems Sister No Known Problems Sister No Known Problems Sister No Known Problems Brother Heart Brother ROS: Constitutional: See above. Neuro: No recent ESPINOZA, vertigo, dizziness or imbalance. No symptoms of sensory neuropathy. HEENT: No recent change in voice, vision or hearing. Resp: No cough, wheeze of hemoptysis. No shortness of breath at rest. No RAZO. CVS: No exertional chest pain, PND or orthopnea. No extremity swelling/edema. No symptoms of claudication. No painful or tender varicose veins. GI: No dysgeusia. No symptoms of stomatitis. No dysphagia or odynophagia. No reflux, n/v, change inbowel habits. No abdominal pain, bloating or distension. No black or bloody stools. : No dysuria or gross hematuria. Endo: No hot flashes. No polyuria or polydipsia. No heat or cold intolerance. Musculoskeletal: No bone, back, joint and muscular pain. Derm: No current rash. No history of jaundice. No diffuse pruritis. Heme: No unusual bleeding and unexplained bruising. Psych: Normal mood. PHYSICAL EXAM: Vitals: Blood pressure 165/83, pulse 64, temperature 36.2 C (97.2 F), temperature source Temporal, weight 58.1 kg (128 lb), SpO2 96%. Well-appearing and in no acute distress. EYES: Sclerae are anicteric bilaterally. LYMPHATIC: There is a nontender mobile enlarged lymph node left level VA is a bit smaller than previous exam. There is no palpable supraclavicular, axillary adenopathy. RESPIRATORY: Inspiratory breath sounds are of somewhat diminished intensity in all aponte. CARDIOVASCULAR: Rhythm is regular. ABDOMEN: The abdomen is nondistended. Extremities: No swelling or edema. SKIN: No jaundice. LABS: Latest Ref [facility] 12/15/2023 WBC 3.70 - 11.00 k/uL 8.90 RBC 4.20 - 6.00 m/uL 4.50 Hemoglobin 13.0 - 17.0 g/dL 13.9 Hematocrit 39.0 - 51.0 % 41.6 MCV 80.0 - 100.0 fL 92.4 MCH 26.0 - 34.0 pg 30.9 MCHC 30.5 - 36.0 g/dL 33.4 RDW-CV 11.5 - 15.0 % 12.7 Platelet Count 150 - 400 k/uL 231 MPV 9.0 - 12.7 fL 9.9 Neut% % 57.3 Abs Neut (ANC) 1.45 - 7.50 k/uL 5.10 Lymph% % 30.0 Abs Lymph 1.00 - 4.00 k/uL 2.67 Mills% % 9.7 Abs Mills <0.87 k/uL 0.86 Eosin% % 1.9 Abs Eosin <0.46 k/uL 0.17 Baso% % 0.8 Abs Baso <0.11 k/uL 0.07 Immature Gran % % 0.3 IMMATURE GRANS (ABS) <0.10 k/uL 0.03 NRBC /100 WBC 0.0 Absolute nRBC <0.01 k/uL <0.01 DTYPE Auto Protein, Total 6.3 - 8.0 g/dL 7.2 Albumin 3.9 - 4.9 g/dL 4.3 Calcium 8.5 - 10.2 mg/dL 9.5 Bilirubin, Total 0.2 - 1.3 mg/dL 0.7 Alkaline Phosphatase 38 - 113 U/L 83 AST 14 - 40 U/L 16 ALT 10 - 54 U/L 17 Glucose 74 - 99 mg/dL 102 (H) BUN 9 - 24 mg/dL 20 Creatinine 0.73 - 1.22 mg/dL 0.83 Sodium 136 - 144 mmol/L 139 Potassium 3.7 - 5.1 mmol/L 4.3 Chloride 98 - 107 mmol/L 103 CO2 22 - 30 mmol/L 28 Anion Gap 8 - 15 mmol/L 8 eGFR >=60 mL/min/1.73m 85 LD 135 - 225 U/L 141 ASSESSMENT/PLAN: (C82.91) 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 Past records not available. He has very good functional status. Continues to smoke. He is not interested in quitting, I have been smoking for 77 years so no sense trying to quit now. -He made it clear he would not undergo chemotherapy again. -LDH was normal. No constitutional symptoms. 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 -Asymmetric tonsillar uptake with high SUV right tonsil. We discussed this finding, but determiningwhat the metastatic lesion in the left iliac bone is takes priority. -Discussed plan with Dr. Whyte. -He is asymptomatic from the lymphoma recurrence. He remains low-grade. Discussed option of single agent rituximab versus expectant management. After discussion of the risks and benefits, he opted for expectant management. -Discussed the importance of calling should he become symptomatic from the cervical lymph node. Plan: -Reassess in about 3 months. -Follow up with ENT. Portions of this documentation were copied and pasted from previous office visit notes in order to provide a cohesive continuity of the history. The note has been reviewed and edited and updated as necessary. I spent a total of 15 minutes on the date of the service which included preparing to see the patient, [id number] patient care, completing clinical documentation, obtaining and/or reviewing separately obtained history, performing a medically appropriate examination, counseling and educating the pat ient/family/caregiver, ordering medications, tests, or procedures, communicating with other HCPs (not separately reported), and communicating results to the patient/family/caregiver. Tomas Fontenot DO documented in this encounterUniversity [facility]05-[facility]24 NoteHNO ID: [id number] Author: TOMAS FONTENOT DO Service: ? 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 HPI: The patient is an 88-year-old male with a past medical history as outlined below. Diagnosed with lymphoma in 1992 when presented with left groin adenopathy. Received radiation. Recurred 2000 with right groin adenopathy. He didn't seek medical attention right away and when did required chemotherapy (R-CHOP x6) followed by radiation. Last seen here for follow up 05/06/2004 prior to recent recurrence. 5-6 weeks prior to presentation, noticed a hard lump posterior left cervical area. CT Neck 06/18/2023: Irregular hyperattenuating, likely enhancing soft tissue with infiltrative margins deep to the LEFT sternocleidomastoid muscle, posterior to the LEFT digastric muscle, and anterior to the LEFT trapezius muscle with possible intramuscular component along the deep surface of the sternocleidomastoid muscle measuring approximately 4.5 x 1.9 x 5.1 cm (transaxial long axis by short axis by CC oblique; 5:62 and 7:91). 1.1 x 1.1 cm well-circumscribed lesion within the skin and subcutaneous tissue of the RIGHT posterior neck, likely an epidermoid inclusion cyst (5:62). Suprahyoid Neck: Nasopharynx and oropharynx appear grossly normal. Parapharyngeal tissue planes are preserved. Oral cavity and floor of mouth appear normal within constraints of artifact from dental amalgam. Lumber Tallier spaces appear normal. Infrahyoid Neck: Hypopharynx, larynx, and imaged infraglottic trachea appear grossly normal. Imaged upper esophagus is unremarkable. Lymph nodes: No cervical lymphadenopathy by size, number or morphologic criteria. Small nonspecific lymph nodes are scattered throughout the neck. Major salivary glands: Parotid and submandibular spaces are unremarkable. Thyroid gland: Thyroid gland is homogeneous without evidence of discrete nodule. Carotid space: Patent bilateral extracranial carotid and jugular systems. Severe narrowing of the LEFT internal jugular vein beginning in the LEFT infratemporal fossa. The stylomastoid foramen. Intracranial contents: No abnormal intracranial enhancement, mass effect, or hydrocephalus. Remote LEFT caudate head infarct. Orbits, Face and Skull Base: Focal radiopacity along the LEFT medial canthus. Postoperative changes in the bilateral globes. Orbital soft tissue planes are otherwise preserved. Paranasal sinuses are clear. Mastoid air cells and middle ear cavities are clear. No evidence of an osteolytic or osteoblastic process in the skull base. Bones: Diffuse osteopenia, likely age related. No suspicious osseous lesions in the imaged calvarium, skull base and spine. Normal cervicothoracic alignment. Multilevel mild spinal canal and multilevel up to moderate neural foraminal degenerative changes. . Temporomandibular joints are maintained. Lungs: Imaged lung apices are clear of focal consolidation or mass. Upper lobe moderate centrilobular emphysematous changes. Was referred to Dr. Whyte. Underwent FNA of left neck mass on 07/19/2023. 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 Comment demonstrated that the flow cytometry revealed the aspirate material was B-cell lymphoma that was CD10 positive. The immunophenotype suggested follicular center origin. AE1-3 (AE1/AE3/PCK26) negative CD3 (PS1) negative CD5 (SP10) negative CD10 (56C6) positive CD15 (MMA) negative CD20 (L26) positive CD23 (1B12) negative CD30 (Ramu-H2) negative CD43 (L60) positive, focal CD45 (RP2/18) positive CD79a (11E3) positive CD138 (B-A38) negative BCL-2 (bcl-2/100/D5) positive BCL-6 (KS365X/A8) negative Cyclin D1/BCL-1 (SP4) negative MUM1 (MRQ-43) negative C-MYC (Y69) negative [place] (polyclonal) negative Lambda (polyclonal) negative P53 (DO-7) negative, null pattern Ki-67 (30-9) positive, 20% Per initial office visit: He feels well in general. No trouble with swallowing. No neck pain. Appetite has been normal. No constitutional symptoms of night sweats or weight loss. Presents for ongoing oncologic management. Interim history: He offers no complaints today. He has been active doing yard work. He has no symptoms from the enlarged left cervical lymph node. Had biopsy of iliac bone lesion. 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 HPI: The patient is an 88-year-old male with a past medical history as outlined below. Diagnosed with lymphoma in 1992 when presented with left groin adenopathy. Received radiation. Recurred 2000 with right groin adenopathy. He didn't seek medical attention right away and when didrequired chemotherapy (R-CHOP x6) followed by radiation. Last seen here for follow up 05/06/2004 prior to recent recurrence. 5-6 weeks prior to presentation, noticed a hard lump posterior left cervical area. CT Neck 06/18/2023: Irregular hyperattenuating, likely enhancing soft tissue with infiltrative margins deep to the LEFTsternocleidomastoid muscle, posterior to the LEFT digastric muscle, and anterior to the LEFT trapezius muscle with possible intramuscular component along the deep surface of the sternocleidomastoid muscle measuring approximately 4.5 x 1.9 x 5.1 cm (transaxial long axis by short axis by CC oblique; 5:62 and 7:91). 1.1 x 1.1 cm well-circumscribed lesion within the skin and subcutaneous tissue of the RIGHT posterior neck, likely an epidermoid inclusion cyst (5:62). Suprahyoid Neck: Nasopharynx and oropharynx appear grossly normal. Parapharyngeal tissue planes are preserved. Oral cavity and floor of mouth appear normal within constraints of artifact from dental amalgam. Lumber Tallier spaces appear normal. Infrahyoid Neck: Hypopharynx, larynx, and imaged infraglottic trachea appear grossly normal. Imaged upper esophagus is unremarkable. Lymph nodes: No cervical lymphadenopathy by size, number or morphologic criteria. Small nonspecific lymph nodes are scattered throughout the neck. Major salivary glands: Parotid and submandibular spaces are unremarkable. Thyroid gland: Thyroid gland is homogeneous without evidence of discrete nodule. Carotid space: Patent bilateral extracranial carotid and jugular systems. Severe narrowing of the LEFT internal jugular vein beginning in the LEFT infratemporal fossa. The stylomastoid foramen. Intracranial contents: No abnormal intracranial enhancement, mass effect, or hydrocephalus. Remote LEFT caudate head infarct. Orbits, Face and Skull Base: Focal radiopacity along the LEFT medial canthus. Postoperative changes in the bilateral globes. Orbital soft tissue planes are otherwise preserved. Paranasal sinuses are clear. Mastoid air cells and middle ear cavities are clear. No evidence of an osteolytic or osteoblastic process in the skull base. Bones: Diffuse osteopenia, likely age related. No suspicious osseous lesions in the imaged calvarium, skull base and spine. Normal cervicothoracic alignment. Multilevel mild spinal canal and multilevel up to moderate neural foraminal degenerative changes. . Temporomandibular joints are maintained. Lungs: Imaged lung apices are clear of focal consolidation or mass. Upper lobe moderate centrilobular emphysematous changes. Was referred to Dr. Whyte. Underwent FNA of left neck mass on 07/19/2023. 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 Comment demonstrated that the flow cytometry revealed the aspirate material was B-cell lymphoma that was CD10 positive. The immunophenotype suggested follicular center origin. AE1-3 (AE1/AE3/PCK26) negative CD3 (PS1) negative CD5 (SP10) negative CD10 (56C6) positive CD15 (MMA) negative CD20 (L26) positive CD23 (1B12) negative CD30 (Ramu-H2) negative CD43 (L60) positive, focal CD45 (RP2/18) positive CD79a (11E3) positive CD138 (B-A38) negative BCL-2 (bcl-2/100/D5) positive BCL-6 (EN303S/A8) negative Cyclin D1/BCL-1 (SP4) negative MUM1 (MRQ-43) negative C-MYC (Y69) negative Kingsbury (polyclonal) negative Lambda (polyclonal) negative P53 (DO-7) negative, null pattern Ki-67 (30-9) positive, 20% Per initial office visit: He feels well in general. No trouble with swallowing. No neck pain. Appetite has been normal. No constitutional symptoms of night sweats or weight loss. Presents for ongoing oncologic management. Interim history: He offers no complaints today. He has been active doing yard work. He has no symptoms from the enlarged left cervical lymph node. Had biopsy of iliac bone lesion. 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 aspirin 81 mg cap Take 1 tablet by mouth once daily. No current facility-administered medications for this visit. Social History Tobacco Use Smoking status: Every Day Packs/day: 1.00 Years: 77.00 Additional pack years: 0.00 Total pack years: 77.00 Types: Cigarettes Smokeless tobacco: Never Vaping Use Vaping Use: Never used Substance Use Topics Alcohol use: No Drug use: No Family History Problem Relation Age of Onset Cancer Mother unknown type, at age 31 other (possible overdose [Other]) Father age 61 No Known Problems Sister No Known Problems Sister No Known Problems Sister No Known Problems Brother Heart Brother ROS: Constitutional: See above. Neuro: No recent ESPINOZA, vertigo, dizziness or imbalance. No symptoms of sensory neuropathy. HEENT: No recent change in voice, vision or hearing. Resp: No cough, wheeze of hemoptysis. No shortness of breath at rest. No RAZO. CVS: No exertional chest pain, PND or orthopnea. No extremity swelling/edema. No symptoms of claudication. No painful or tender varicose veins. GI: No dysgeusia. No symptoms of stomatitis. No dysphagia or odynophagia. No reflux, n/v, change inbowel habits. No abdominal pain, bloating or distension. No black or bloody stools. : No dysuria or gross hematuria. Endo: No hot flashes. No polyuria or polydipsia. No heat or cold intolerance. Musculoskeletal: No bone, back, joint and muscular pain. Derm: No current rash. No history of jaundice. No diffuse pruritis. Heme: No unusual bleeding and unexplained bruising. Psych: Normal mood. PHYSICAL EXAM: Vitals: Blood pressure 146/78, pulse (!) 58, temperature 36.3 C (97.4 F), temperature source Temporal, weight 58.5 kg (129 lb), SpO2 94%. Well-appearing and in no acute distress. EYES: Sclerae are anicteric bilaterally. LYMPHATIC: There is a nontender mobile 2 x 3 cm enlarged lymph node left level VA. There is no palpable supraclavicular, axillary or inguinal adenopathy. RESPIRATORY: Inspiratory breath sounds are of somewhat diminished intensity in all aponte. No rales, wheezes or rhonchi. CARDIOVASCULAR: Rhythm is regular. ABDOMEN: The abdomen is nondistended. No splenomegaly or hepatomegaly. No tenderness. Extremities: No swelling or edema. SKIN: No jaundice. 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 Past records not available. He has very good functional status. Continues to smoke. He is not interested in quitting, I have been smoking for 77 years so no sense trying to quit now. -He made it clear he would not undergo chemotherapy again. -LDH was normal. No constitutional symptoms. 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 -Asymmetric tonsillar uptake with high SUV right tonsil. We discussed this finding, but determiningwhat the metastatic lesion in the left iliac bone is takes priority. -Discussed plan with Dr. Whyte. -He is asymptomatic from the lymphoma recurrence. He remains low-grade. Discussed option of single agent rituximab versus expectant management. After discussion of the risks and benefits, he opted for expectant management. -Discussed the importance of calling should he become symptomatic from the cervical lymph node. Plan: -Reassess in about 2-3 months. Portions of this documentation were copied and pasted from previous office visit notes in order to provide a cohesive continuity of the history. The note has been reviewed and edited and updated as necessary. I spent a total of 25 minutes on the date of the service which included preparing to see the patient, [id number] patient care, completing clinical documentation, obtaining and/or reviewing separately obtained history, performing a medically appropriate examination, counseling and educating the pat ient/family/caregiver, ordering medications, tests, or procedures, communicating with other HCPs (not separately reported), and communicating results to the patient/family/caregiver. Tomas Fontenot DO documented in this encounterUniversity Hospitals [facility]04-25-2024 NoteHNO ID: [id number] Author: LIBORIO ALMANZAR RN Service: Nursing Author Type: Registered Nurse Type: Nursing Progress Note Filed: 09/09/2023 08:32 Note Text: Other: pt ready for OR, call light in reach, family called to bedside.[facility] [id number] Miscellaneous Notes* Telephone Encounter - Kim Storm - 08/31/2023 8:17 AM EDT Called pt and scheduled follow up after [facility] at [facility] 09/[facility]. Kim Rangel * Telephone Encounter - Kim Storm - 08/27/2023 9:[address] guided biopsy right iliac bone mets [facility]. Message sent to biopsy schedulers. OV 1-2 weeks after biopsy. documented in this encounterUniversity Hospitals Lake [facility] Center04-12-2024 Telephone encounter Note * Telephone Encounter - Carlos Ryan - 08/27/2023 9:21 AM EDTSummary: Bone Biopsy Received request for bone biopsy at [place]. Sending to radiologist for approval. [facility]04-12-2024 Miscellaneous Notes* Telephone Encounter - Carlos Ryan - 08/27/2023 9:21 AM EDTSummary: Bone Biopsy Received request for bone biopsy at [place]. Sending to radiologist for approval. documented in this encounterUniversity Hospitals Lake [facility] Center04-12-2024 History of Present illness Narrative* Tomas Fontenot DO - 08/27/2023 8:23 AM EDT Patient referred by Dr. Whyte for B-cell lymphoma. The impression and plan will be communicated by way of the shared electronic record or faxed under separate cover letter. HPI: The patient is an 88-year-old male with a past medical history as outlined below. Diagnosed with lymphoma in 1992 when presented with left groin adenopathy. Received radiation. Recurred 2000 with right groin adenopathy. He didn't seek medical attention right away and when didrequired chemotherapy (R-CHOP x6) followed by radiation. Last seen here for follow up 05/06/2004. Last 5-6 weeks noticed a hard lump posterior left cervical area. CT Neck 06/18/2023: Irregular hyperattenuating, likely enhancing soft tissue with infiltrative margins deep to the LEFT sternocleidomastoid muscle, posterior to the LEFT digastric muscle, and anterior to the LEFT trapezius muscle with possible intramuscular component along the deep surface of the sternocleidomastoid muscle measuring approximately 4.5 x 1.9 x 5.1 cm (transaxial long axis by short axis by CC oblique; 5:62 and 7:91). 1.1 x 1.1 cm well-circumscribed lesion within the skin and subcutaneous tissue of the RIGHT posterior neck, likely an epidermoid inclusion cyst (5:62). Suprahyoid Neck: Nasopharynx and oropharynx appear grossly normal. Parapharyngeal tissue planes are preserved. Oral cavity and floor of mouth appear normal within constraints of artifact from dental amalgam. Lumber Tallier spaces appear normal. Infrahyoid Neck: Hypopharynx, larynx, and imaged infraglottic trachea appear grossly normal. Imaged upper esophagus is unremarkable. Lymph nodes: No cervical lymphadenopathy by size, number or morphologic criteria. Small nonspecific lymph nodes are scattered throughout the neck. Major salivary glands: Parotid and submandibular spaces are unremarkable. Thyroid gland: Thyroid gland is homogeneous without evidence of discrete nodule. Carotid space: Patent bilateral extracranial carotid and jugular systems. Severe narrowing of the LEFT internal jugular vein beginning in the LEFT infratemporal fossa. The stylomastoid foramen. Intracranial contents: No abnormal intracranial enhancement, mass effect, or hydrocephalus. Remote LEFT caudate head infarct. Orbits, Face and Skull Base: Focal radiopacity along the LEFT medial canthus. Postoperative changes in the bilateral globes. Orbital soft tissue planes are otherwise preserved. Paranasal sinuses are clear. Mastoid air cells and middle ear cavities are clear. No evidence of an osteolytic or osteoblastic process in the skull base. Bones: Diffuse osteopenia, likely age related. No suspicious osseous lesions in the imaged calvarium, skull base and spine. Normal cervicothoracic alignment. Multilevel mild spinal canal and multilevel up to moderate neural foraminal degenerative changes. . Temporomandibular joints are maintained. Lungs: Imaged lung apices are clear of focal consolidation or mass. Upper lobe moderate centrilobular emphysematous changes. Was referred to Dr. Whyte. Underwent FNA of left neck mass on 07/19/2023. 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 Comment demonstrated that the flow cytometry revealed the aspirate material was B-cell lymphoma that was CD10 positive. The immunophenotype suggested follicular center origin. AE1-3 (AE1/AE3/PCK26) negative CD3 (PS1) negative CD5 (SP10) negative CD10 (56C6) positive CD15 (MMA) negative CD20 (L26) positive CD23 (1B12) negative CD30 (Ramu-H2) negative CD43 (L60) positive, focal CD45 (RP2/18) positive CD79a (11E3) positive CD138 (B-A38) negative BCL-2 (bcl-2/100/D5) positive BCL-6 (FM350E/A8) negative Cyclin D1/BCL-1 (SP4) negative MUM1 (MRQ-43) negative C-MYC (Y69) negative Kingsbury (polyclonal) negative Lambda (polyclonal) negative P53 (DO-7) negative, null pattern Ki-67 (30-9) positive, 20% Per initial office visit: He feels well in general. No trouble with swallowing. No neck pain. Appetite has been normal. No constitutional symptoms of night sweats or weight loss. 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 aspirin 81 mg cap Take 1 tablet by mouth once daily. No current facility-administered medications for this visit. Social History Tobacco Use Smoking status: Every Day Packs/day: 0.50 Years: 63.00 Additional pack years: 0.00 Total pack years: 31.50 Types: Cigarettes Smokeless tobacco: Never Tobacco comments: quitting Vaping Use Vaping Use: Never used Substance Use Topics Alcohol use: No Drug use: No Family History Problem Relation Age of Onset Cancer Mother unknown type, at age 31 other (possible overdose [Other]) Father age 61 No Known Problems Sister No Known Problems Sister No Known Problems Sister No Known Problems Brother Heart Brother ROS: Constitutional: See above. Neuro: No recent ESPINOZA, vertigo, dizziness or imbalance. No symptoms of sensory neuropathy. HEENT: No recent change in voice, vision or hearing. Resp: No cough, wheeze of hemoptysis. No shortness of breath at rest. No RAZO. CVS: No exertional chest pain, PND or orthopnea. No extremity swelling/edema. No symptoms of claudication. No painful or tender varicose veins. GI: No dysgeusia. No symptoms of stomatitis. No dysphagia or odynophagia. No reflux, n/v, change inbowel habits. No abdominal pain, bloating or distension. No black or bloody stools. : No dysuria or gross hematuria. Endo: No hot flashes. No polyuria or polydipsia. No heat or cold intolerance. Musculoskeletal: No bone, back, joint and muscular pain. Derm: No current rash. No history of jaundice. No diffuse pruritis. Heme: No unusual bleeding and unexplained bruising. Psych: Normal mood. PHYSICAL EXAM: Vitals: There were no vitals taken for this visit. Well-appearing and in no acute distress. EYES: Sclerae are anicteric bilaterally. LYMPHATIC: There is a nontender mobile 2 x 3 cm enlarged lymph node left level VA. There is no palpable supraclavicular, axillary or inguinal adenopathy. RESPIRATORY: Inspiratory breath sounds are of somewhat diminished intensity in all aponte. No rales, wheezes or rhonchi. CARDIOVASCULAR: Rhythm is regular. ABDOMEN: The abdomen is nondistended. No splenomegaly or hepatomegaly. No tenderness. Extremities: No swelling or edema. SKIN: No jaundice. 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 Past records not available. He has very good functional status. Continues to smoke. He is not interested in quitting, I have been smoking for 77 years so no sense trying to quit now. -He made it clear he would not undergo chemotherapy again. But discussed plan for staging and potential incisional biopsy of mass for more clear diagnosis since more treatment options may be available then we had 20 years ago. He was okay proceeding with that. -LDH is normal. No constitutional symptoms. -I personally reviewed PET images earlier today prior to radiologist interpretation. Reviewed againwith specific focus on lung findings. Independently verified and agreed with the radiologist's findings. Reviewed PET--Needs biopsy right iliac bone metastasis--long time smoker--questionable findings in lungs--unusual for follicular lymphoma. -Asymmetric tonsillar uptake with high SUV right tonsil. We discussed this finding, but determiningwhat the metastatic lesion in the left iliac bone is takes priority. -Discussed plan with Dr. Whyte. Plan: -Imaging guided biopsy right iliac bone. Portions of this documentation were copied and pasted from previous office visit notes in order to provide a cohesive continuity of the history. The note has been reviewed and edited and updated as necessary. I spent a total of 40 minutes on the date of the service which included preparing to see the patient, [id number] patient care, completing clinical documentation, obtaining and/or reviewing separately obtained history, performing a medically appropriate examination, counseling and educating the pat ient/family/caregiver, ordering medications, tests, or procedures, communicating with other HCPs (not separately reported), and communicating results to the patient/family/caregiver. Tomas Fontenot DO documented in this encounterUniversity Hospitals [facility]04-09-2024 History of Present illness Narrative* Viola Billings RT(R) - 08/24/2023 8:30 AM EDT RADIOLOGY SERVICE PROGRESS NOTE SERVICE DATE: 08/24/2023 SERVICE TIME: 8:20 AM PATIENT IDENTITY VERIFICATION COMPLETED USING TWO (2) STANDARD IDENTIFIERS: Name and Date of confirmed by patient verbally FALL SCREENING: Has the patient had 2 falls in the last year or 1 fall with injury or currently using an Ambulatory Assistive Device (Walker, Cane, Wheelchair, Crutches, etc.)? No PATIENT GENDER DATA: .male ALLERGIES: NA MEDICATIONS REVIEWED: Not applicable PATIENT RELEVANT IMPLANT DATA REVIEWED: Not Applicable PATIENT PRESENTS WITH AN IMPLANTABLE OR ATTACHED [employer] TE[employer]ER: No CREATININE: Creatinine Date Value Ref Range Status 08/09/2023 0.93 0.73 - 1.22 mg/dL Final 06/16/2023 0.94 0.73 - 1.22 mg/dL Final 11/20/2022 0.90 0.73 - 1.22 mg/dL Final Estimated Glomerular Filtration Rate Date Value Ref Range Status 08/09/2023 79 >=60 mL/min/1.73m Final Comment: Estimated Glomerular Filtration Rate (eGFR) is calculated using the 2020 CKD-EPI creatinine equation. This equation utilizes serum creatinine, sex, and age as parameters. The creatinine assay has traceable calibration to isotope dilution- mass spectrometry. Refer to KDIGO guidelines for clinical interpretation. In patients with unstable renal function, e.g. those with acute kidney injury, the eGFRmay not accurately reflect actual GFR. eGFR- Date Value Ref Range Status 06/03/2017 >60 Final P.O.C.T. RESULTS: N/A August 24, [address] PERFORMED: No IV SITE: Ambulatory: NM only - direct IV injection in the Left antecubital site POST EXAM PIV STATUS: Discontinued PROCEDURE TYPE: NM INJECT: PET/CT BODY SCAN. 7.1 mCi F18 FDG. No other medications given.. ADMINISTRATION TIME: 08 PATIENT DISCHARGED TO: Ambulatory patient, left [place] department area. A Diagnostic radioactive procedure has taken place, with no further precautions necessary other than routine body substance precautions. More information regarding radiation safety can be found usingthis link: [email or web address]%[email or web address] SIGNATURE: ARIE Rich) PATIENT NAME: Vick Roman DATE: August 24, 2023 TIME: 8:20 AM PAGER/CONTACT #: documented in this encounterUniversity Hospitals Lake [facility] Center04-09-2024 NoteHNO ID: [id number] Author: VIOLA BILLINGS RT (R) Service: Nuclear Medicine Author Type: Technologist Type: Progress Notes Filed: 08/24/2023 08:20 Note Text: RADIOLOGY SERVICE PROGRESS NOTE SERVICE DATE: 08/24/2023 SERVICE TIME: 8:20 AM PATIENT IDENTITY VERIFICATION COMPLETED USING TWO (2) STANDARD IDENTIFIERS: Name and Date of confirmed by patient verbally FALL SCREENING: Has the patient had 2 falls in the last year or 1 fall with injury or currently using an Ambulatory Assistive Device (Walker, Cane, Wheelchair, Crutches, etc.)? No PATIENT GENDER DATA: .male ALLERGIES: NA MEDICATIONS REVIEWED: Not applicable PATIENT RELEVANT IMPLANT DATA REVIEWED: Not Applicable PATIENT PRESENTS WITH AN IMPLANTABLE OR ATTACHED [employer] TE[employer]ER: No CREATININE: Creatinine Date Value Ref Range Status 08/09/2023 0.93 0.73 - 1.22 mg/dL Final 06/16/2023 0.94 0.73 - 1.22 mg/dL Final 11/20/2022 0.90 0.73 - 1.22 mg/dL Final Estimated Glomerular Filtration Rate Date Value Ref Range Status 08/09/2023 79 >=60 mL/min/1.73m? Final Comment: Estimated Glomerular [...] Range Status 06/03/2017 >60 Final P.O.C.T. RESULTS: N/A August 24, [address] PERFORMED: No IV SITE: Ambulatory: IA only - direct IV injection in the Left antecubital site POST EXAM PIV STATUS: Discontinued PROCEDURE TYPE: NM INJECT: PET/CT BODY SCAN. 7.1 mCi F18 FDG. No other medications given.. ADMINISTRATION TIME: 0813 PATIENT DISCHARGED TO: Ambulatory patient, left [place] department area. A Diagnostic radioactive procedure has taken place, with no further precautions necessary other than routine body substance precautions. 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 The impression and plan will be communicated by way of the shared electronic record or faxed under separate cover letter. HPI: The patient is an 88-year-old male with a past medical history as outlined below. Diagnosed with lymphoma in 1992 when presented with left groin adenopathy. Received radiation. Recurred 2000 with right groin adenopathy. He didn't seek medical attention right away and when didrequired chemotherapy (R-CHOP x6) followed by radiation. Last seen here for follow up 05/06/2004. Last 5-6 weeks noticed a hard lump posterior left cervical area. CT Neck 06/18/2023: Irregular hyperattenuating, likely enhancing soft tissue with infiltrative margins deep to the LEFT sternocleidomastoid muscle, posterior to the LEFT digastric muscle, and anterior to the LEFT trapezius muscle with possible intramuscular component along the deep surface of the sternocleidomastoid muscle measuring approximately 4.5 x 1.9 x 5.1 cm (transaxial long axis by short axis by CC oblique; 5:62 and 7:91). 1.1 x 1.1 cm well-circumscribed lesion within the skin and subcutaneous tissue of the RIGHT posterior neck, likely an epidermoid inclusion cyst (5:62). Suprahyoid Neck: Nasopharynx and oropharynx appear grossly normal. Parapharyngeal tissue planes are preserved. Oral cavity and floor of mouth appear normal within constraints of artifact from dental amalgam. Lumber Tallier spaces appear normal. Infrahyoid Neck: Hypopharynx, larynx, and imaged infraglottic trachea appear grossly normal. Imaged upper esophagus is unremarkable. Lymph nodes: No cervical lymphadenopathy by size, number or morphologic criteria. Small nonspecific lymph nodes are scattered throughout the neck. Major salivary glands: Parotid and submandibular spaces are unremarkable. Thyroid gland: Thyroid gland is homogeneous without evidence of discrete nodule. Carotid space: Patent bilateral extracranial carotid and jugular systems. Severe narrowing of the LEFT internal jugular vein beginning in the LEFT infratemporal fossa. The stylomastoid foramen. Intracranial contents: No abnormal intracranial enhancement, mass effect, or hydrocephalus. Remote LEFT caudate head infarct. Orbits, Face and Skull Base: Focal radiopacity along the LEFT medial canthus. Postoperative changes in the bilateral globes. Orbital soft tissue planes are otherwise preserved. Paranasal sinuses are clear. Mastoid air cells and middle ear cavities are clear. No evidence of an osteolytic or osteoblastic process in the skull base. Bones: Diffuse osteopenia, likely age related. No suspicious osseous lesions in the imaged calvarium, skull base and spine. Normal cervicothoracic alignment. Multilevel mild spinal canal and multilevel up to moderate neural foraminal degenerative changes. . Temporomandibular joints are maintained. Lungs: Imaged lung apices are clear of focal consolidation or mass. Upper lobe moderate centrilobular emphysematous changes. Was referred to Dr. Whyte. Underwent FNA of left neck mass on 07/19/2023. 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 Comment demonstrated that the flow cytometry revealed the aspirate material was B-cell lymphoma that was CD10 positive. The immunophenotype suggested follicular center origin. He feels well in general. No trouble with swallowing. No neck pain. Appetite has been normal. No constitutional symptoms of night sweats or weight loss. 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 aspirin 81 mg cap Take 1 tablet by mouth once daily. No current facility-administered medications for this visit. Social History Tobacco Use Smoking status: Every Day Packs/day: 0.50 Years: 63.00 Additional pack years: 0.00 Total pack years: 31.50 Types: Cigarettes Smokeless tobacco: Never Tobacco comments: quitting Vaping Use Vaping Use: Never used Substance Use Topics Alcohol use: No Drug use: No Family History Problem Relation Age of Onset Cancer Mother unknown type, at age 31 other (possible overdose [Other]) Father age 61 No Known Problems Sister No Known Problems Sister No Known Problems Sister No Known Problems Brother Heart Brother ROS: Constitutional: See above. Neuro: No recent ESPINOZA, vertigo, dizziness or imbalance. No symptoms of sensory neuropathy. HEENT: No recent change in voice, vision or hearing. Resp: No cough, wheeze of hemoptysis. No shortness of breath at rest. No RAZO. CVS: No exertional chest pain, PND or orthopnea. No extremity swelling/edema. No symptoms of claudication. No painful or tender varicose veins. GI: No dysgeusia. No symptoms of stomatitis. No dysphagia or odynophagia. No reflux, n/v, change inbowel habits. No abdominal pain, bloating or distension. No black or bloody stools. : No dysuria or gross hematuria. Endo: No hot flashes. No polyuria or polydipsia. No heat or cold intolerance. Musculoskeletal: No bone, back, joint and muscular pain. Derm: No current rash. No history of jaundice. No diffuse pruritis. Heme: No unusual bleeding and unexplained bruising. Psych: Normal mood. PHYSICAL EXAM: Vitals: Blood pressure 160/81, pulse 63, temperature 36.1 C (96.9 F), height 161.3 cm (5' 3.5), weight 60.1 kg (132 lb 8 oz), SpO2 97%. Well-appearing and in no acute distress. EYES: Sclerae are anicteric bilaterally. LYMPHATIC: There is a nontender mobile 2 x 3 cm enlarged lymph node left level VA. There is no palpable supraclavicular, axillary or inguinal adenopathy. RESPIRATORY: Inspiratory breath sounds are of somewhat diminished intensity in all aponte. No rales, wheezes or rhonchi. CARDIOVASCULAR: Rhythm is regular. ABDOMEN: The abdomen is nondistended. No splenomegaly or hepatomegaly. No tenderness. Extremities: No swelling or edema. SKIN: No jaundice. 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 Past records not available. He has very good functional status. Continues to smoke. He is not interested in quitting, I have been smoking for 77 years so no sense trying to quit now. --He made it clear he would not undergo chemotherapy again. But discussed plan for staging and potential incisional biopsy of mass for more clear diagnosis since more treatment options may be available then we had 20 years ago. He was okay proceeding with that. -LDH is normal. No constitutional symptoms. Plan: -PET scan. -Discuss further biopsy with Dr. Whyte. -Potential RT if no other sites of disease. I spent a total of 50 minutes on the date of the service which included preparing to see the patient, [id number] patient care, completing clinical documentation, obtaining and/or reviewing separately obtained history, performing a medically appropriate examination, counseling and educating the pat ient/family/caregiver, ordering medications, tests, or procedures, communicating with other HCPs (not separately reported), and communicating results to the patient/family/caregiver. Tomas Fontenot DO documented in this encounterUniversity Hospitals Lake [facility] Center03-22-2024 Miscellaneous Notes* Telephone Encounter - Shasha Messer LPN - 08/06/2023 3:29 PM EDT Apt made. Shasha Messer LPN * Telephone Encounter - Shasha Messer LPN - 08/04/2023 2:55 PM EDT Yes I received it today. Made up new pt chart this afternoon and am giving to Dr to review for completeness. Shasha Messer LPN * Telephone Encounter - Margarette Nevarez - 08/04/2023 2:47 PM EDT Daughter Boubacar was calling to see if office got referral from David Sanchez for Non Hodgkin lymphoma as they was to have faxed the referral to our office yesterday. Please call patient to arrange this appointment Patient was a previous Dr Licea patient. documented in this encounterUniversity Hospitals Lake West Medical Center02-14-2024 History of Present illness Narrative* Stanley Kaiser MD - 06/30/2023 8:31 AM EST Patient presents with: Follow Up HPI: Patient [...] to wait to be seen. Will see whatwe can do to move an ENT evaluation [...] Abs Lymph 1.00 - 4.00 k/uL 2.55 Mills% % 9.1 Abs Mills <0.87 k/uL 0.68 Eosin% % 4.0 Abs [...] 136/78 Pulse 62 Ht 167.6 cm (5' 6) Wt 59.2 kg (130 lb 9.6 oz) [...] ICD9: 790.29, ICD10: R73.03 - will follow. Stanley Kaiser MD documented in this encounterUniversity Hospitals Lake West Medical Center02-03-2024 Miscellaneous Notes* Telephone Encounter - Kim Storm - 06/19/2023 10:35 AM EST Spoke with patient spouse and scheduled for first available at [place]. Kim Rangel * Telephone Encounter - Kaia Daniels - 06/19/2023 10:24 AM EST 1st call attempt, unable to leave vm * Telephone Encounter - Becky Aly - 06/18/2023 2:47 PM EST Spoke with patient and informed of result and ENT referral. Sending to schedulers. Patient aware someone will call to schedule. Becky Aly * Telephone Encounter - Stanley Kaiser MD - 06/18/2023 12:26 PM EST Does show a lump that needs further evaluated. Set up with ent soon. I attempted to call myself but no answer and mailbox is full. Please call and get set up. documented in this encounterUniversity Hospitals Lake West Medical Center02-02-2024 Miscellaneous Notes* Telephone Encounter - Stanley Kaiser MD - 06/18/2023 11:55 AM EST Ok. Will postpone * Telephone Encounter - Jess Rich LPN - 06/18/2023 9:54 AM EST Patient doesn't understand well over the phone what he would need to change. Would like to discuss at his visit on 06/30/23. Can you make a note of this to go over? * Telephone Encounter - Stanley Kaiser MD - 06/18/2023 8:01 AM EST Labs show his sugars are in prediabetic range. Just watch starches and sweets in the diet. Recheck A1c in six months documented in this encounterUniversity Hospitals Lake West Medical Center02-02-2024 History of Present illness Narrative* Denise Ramesh, RT(R) - 06/18/2023 10:40 AM EST Radiology Service Progress Note DATE OF SERVICE: [...] PATIENT PRESENTS WITH AN IMPLANTABLE OR ATTACHED [employer]: No ALLERGIES: Reviewed and unchanged CONTRAST ALLERGY: [...] creatinine assay has traceable calibration to isotope dilution- mass spectrometry. Refer to KDIGO guidelines for clinical interpretation. In patients with unstable renal function, e.g. those with acute kidney injury, the eGFRmay not accurately reflect actual GFR. eGFR- Date Value Ref Range Status 06/03/2017 >60 Final P.O.C.T. RESULTS: POC done: Yes, See Lab Tab June 18, 2023 TREATMENT: N/A PERIPHERAL IV DATA: Ambulatory: A peripheral IV was started in the Left antecubital site with a Angio cath: 22 gauge. RADIOLOGY DEPARTMENT: CT; Exam(s) Completed: Neck SIGNATURE: RT Lee(R) PATIENT NAME: Vick Roman DATE: June 18, 2023 TIME: 1:47 PM documented in this encounterUniversity Hospitals Lake West Medical Center02-01-2024 Miscellaneous Notes* Telephone Encounter - Vickie Morgan LPN - 06/17/2023 12:15 PM EST A1c has been added. Vickie Morgan LPN * Telephone Encounter - Stanley Kaiser MD - 06/17/2023 8:28 AM EST Labs are stable, except sugars are up. Can we add A1c. If not have him come in for it documented in this encounterUniversity Hospitals Lake West Medical Center08-11-2023 History of Present illness Narrative* Stanley Kaiser MD - 12/25/2022 11:15 AM EDT Patient presents with: Follow Up HPI: Patient [...] Colonoscopy COLONOSCOPY VIA STOMA W OR W/O [facility] 04/27/14 PAST SURGICAL HISTORY OF lymph node [...] 134/86 Pulse 62 Ht 167.6 cm (5' 6) Wt 56.2 kg (124 lb) SpO2 96% [...] COMP METABOLIC PANEL - LIPID PANEL BASIC Stanley Kaiser MD documented in this encounterUniversity Hospitals Lake West Medical Center08-08-2023 History of Present illness Narrative* Amna Hu, RT(R) - 12/22/2022 1:10 PM EDT Radiology Service Progress Note PATIENT NAME: Vick Roman DATE OF SERVICE: December 22, 2022 TIME: 1:09 PM PATIENT IDENTITY VERIFICATION COMPLETED USING TWO (2) IDENTIFIERS: Name and Date of confirmedby patient verbally. FALL SCREENING: Has the patient [...] RT Stephania(R) December 22, 2022 1:09 PM documented in this encounterUniversity Hospitals Lake West Medical Center2023 History of Present illness Narrative* Stanley Kaiser MD - 11/27/2022 11:35 AM EDT Patient presents with: Pneumonia: Follow up HPI: [...] 124/66 Pulse 78 Ht 167.6 cm (5' 6) Wt 55.8 kg (123 lb) SpO2 93% [...] - ICD9: 783.21, ICD10: R63.4 - follow Stanley Kaiser MD RTO in four weeks. documented in this encounterUniversity Hospitals Lake West Medical Center07-10-2023 Miscellaneous Notes* Telephone Encounter - Becky Aly - 11/23/2022 11:00 AM EDT Spoke with and informed of results and repeat labs in a few weeks. She verbalized understanding. States patient just started with a mild itchy rash on his mid-upper back. Vick denies pain or any real discomfort. States it gets a little itchy but that's it. He has an appointment with Dr. Kaiser for follow up on 11/27/22. Becky Aly * Telephone Encounter - Stanley Kaiser MD - 11/23/2022 9:46 AM EDT His white count was up, likely from his infection. Recheck in a few weeks when he is feeling better. documented in this encounterUniversity Hospitals Lake West Medical Center07-08-2023 Miscellaneous Notes* Telephone Encounter - Becky Aly - 11/21/2022 10:08 AM EDT Both patient and his informed. Verbalized understanding. Scheduled for f/u on 11/[address] Po Aly * Telephone Encounter - Stanley Kaiser MD - 11/21/2022 8:01 AM EDT Chest xray shows pneumonia. White count is up. Covid is negative. Continue doxy. Call if worsens at all. Schedule follow up in one week. documented in this encounterUniversity Hospitals Lake West Medical Center07-07-2023 History of Past illness Narrative* Problem Noted Date Diagnosed Date Resolved Date Altered bowel function 11/20/202212/25 History of colonic polyps 11/20/2022 Skin lesion 11/20/2022 12/25/2022 Benign neoplasm of colon 04/27/201404/2014 documented as of this encounter (statuses as of 12/26/2022) [address]07-2023 History of Past illness Narrative* Problem Noted Date Diagnosed Date Resolved Date Altered bowel function 11/20/202212/25 History of colonic polyps 11/20/2022 Skin lesion 11/20/2022 12/25/2022 Benign neoplasm of colon 04/27/201404/2014 documented as of this encounter (statuses as of 06/19/2023) [address]07-2023 History of Past illness Narrative* Problem Noted Date Diagnosed Date Resolved Date Altered bowel function 11/20/202212/25 History of colonic polyps 11/20/2022 Skin lesion 11/20/2022 12/25/2022 Benign neoplasm of colon 04/27/201404/2014 documented as of this encounter (statuses as of 06/19/2023) [address]07-2023 History of Past illness Narrative* Problem Noted Date Diagnosed Date Resolved Date Altered bowel function 11/20/202212/25 History of colonic polyps 11/20/2022 Skin lesion 11/20/2022 12/25/2022 Benign neoplasm of colon 04/27/201404/2014 documented as of this encounter (statuses as of 06/23/2023) [facility]07[facility] History of Past illness Narrative* Problem Noted Date Diagnosed Date Resolved Date Altered bowel function 11/20/202212/25 History of colonic polyps 11/20/2022 Skin lesion 11/20/2022 12/25/2022 Benign neoplasm of colon 04/27/201404/2014 documented as of this encounter (statuses as of 06/29/2023) [address]07-2023 History of Past illness Narrative* Problem Noted Date Diagnosed Date Resolved Date Altered bowel function 11/20/202212/25 History of colonic polyps 11/20/2022 Skin lesion 11/20/2022 12/25/2022 Benign neoplasm of colon 04/27/201404/2014 documented as of this encounter (statuses as of 06/30/2023) [address]07-2023 History of Past illness Narrative* Problem Noted Date Diagnosed Date Resolved Date Altered bowel function 11/20/202212/25 History of colonic polyps 11/20/2022 Skin lesion 11/20/2022 12/25/2022 Benign neoplasm of colon 04/27/201404/2014 documented as of this encounter (statuses as of 08/06/2023) [address]07-2023 History of Past illness Narrative* Problem Noted Date Diagnosed Date Resolved Date Altered bowel function 11/20/202212/25 History of colonic polyps 11/20/2022 Skin lesion 11/20/2022 12/25/2022 Benign neoplasm of colon 04/27/201404/2014 documented as of this encounter (statuses as of 08/10/2023) [facility] History of Past illness Narrative* Problem Noted Date Diagnosed Date Resolved Date Altered bowel function 11/20/202212/25 History of colonic polyps 11/20/2022 Skin lesion 11/20/2022 12/25/2022 Benign neoplasm of colon 04/27/201404/2014 documented as of this encounter (statuses as of 08/25/2023) [facility] History of Past illness Narrative* Problem Noted Date Diagnosed Date Resolved Date Altered bowel function 11/20/202212/25 History of colonic polyps 11/20/2022 Skin lesion 11/20/2022 12/25/2022 Benign neoplasm of colon 04/27/201404/2014 documented as of this encounter (statuses as of 08/25/2023) [address]07-2023 History of Past illness Narrative* Problem Noted Date Diagnosed Date Resolved Date Altered bowel function 11/20/202212/25 History of colonic polyps 11/20/2022 Skin lesion 11/20/2022 12/25/2022 Benign neoplasm of colon 04/27/201404/2014 documented as of this encounter (statuses as of 08/27/2023) [facility] History of Past illness Narrative* Problem Noted Date Diagnosed Date Resolved Date Altered bowel function 11/20/202212/25 History of colonic polyps 11/20/2022 Skin lesion 11/20/2022 12/25/2022 Benign neoplasm of colon 04/27/201404/2014 documented as of this encounter (statuses as of 08/31/2023) [facility]07-07-[facility] History of Present illness Narrative* Asya King RT(R) - 11/20/2022 12:20 PM EDT Radiology Service Progress Note PATIENT NAME: Vick Roman DATE OF SERVICE: November 20, 2022 TIME: 12:13 PM PATIENT IDENTITY VERIFICATION COMPLETED USING TWO (2) IDENTIFIERS: Name and Date of confirmedby patient verbally. FALL SCREENING: Has the patient [...] RT Adriana(R) November 20, 2022 12:13 PM documented in this encounterUniversity Hospitals Lake West Medical Center07-07-2023 History of Present illness Narrative* Stanley Kaiser MD - 11/20/2022 11:38 AM EDT Patient presents with: Chest Congestion HPI: Patient presents today for office visit for chest congestion with slight productive cough thatstarted last 11/12/22. He smokes a pack of cigarettes a day. He was fishing up on st[facility] when the smoke from [place] was [...] 110/58 Pulse 64 Ht 167.6 cm (5' 6) Wt 56 kg (123 lb 6.4 oz) [...] METABOLIC PNL - XR CHEST 2V FRONTAL/LAT Stanley Kaiser MD documented in this encounterUniversity Hospitals Lake West Medical Center01-30-2023 Miscellaneous Notes* Telephone Encounter - Becky Aly - 06/15/2022 10:51 AM EST Patient advised. Becky Aly * Telephone Encounter - Stanley Kaiser MD - 06/15/2022 10:12 AM EST Perfect. To Er if any more pain before hand(I thought he might need imaging but was unable to orderover weekend) * Telephone Encounter - Becky Aly - 06/15/2022 10:02 AM EST Patient informed. Was back in ER Wednesday evening with the abdominal pain. CT revealed pretty severe Aortic Aneurysm. Referred to Vascular Surgery Dr. Eriberto Ortiz at [facility]. Appt scheduled for tomorrow 06/16/22 @ 11:00 Becky Aly * Telephone Encounter - Stanley Kaiser MD - 06/15/2022 9:51 AM EST Labs are ok except has some protein in the urine. Probably is ok but to be on the safe side. Recheck ua in one month documented in this encounterUniversity Hospitals Lake West Medical Center01-28-[address] Talbot [facility] June 13, 2022 10:08pm Note Date/Time June 13, 2022 7 :11pm [facility] Medical Records Department [address] [place] [address] Emergency Department Summary 06/13/22 MR#: [id number] Acct: [id number] Name: VICK ROMAN Rep #:[id number] : 1935 86 From: Wilfredo Mahmood PCP: Dr. Stanley Kaiser MD Status:REG E R Location: ED HPI History of Present Illness Chief Complaint: Back Narrative Narrative: 86-year-old male here for back pain. Patient notes the back pain is intermittent. Notes associated abdominal pain. Denies any syncope. Denies anyexacerbating or alleviating symptoms. Pain is not worse by movement. Denies any increased activity, new exercises, or trauma to the area. States he is got left-sided back pain notes it wraps around to the groin and the suprapubic region. Notes chronic dribbling, urinary frequency that he associates with his prostate enlargement. His last bowel movement was yesterday. He has had no melena, medic easier. Does note 2 episodes of nonbloody nonbilious vomitus. Denies any chest pain or shortness of breath. Denies any family history of connective tissue disorders or aortic pathology. Denies any fever. Denies any urinary complaints. Patient denies any saddle anesthesia, urinary tension, bowel or bladder incontinence, lower extremity weakness, fever or IV drug use, no recent spinal manipulation or surgery, no recent urinary catheterization. [facility] Medical History (Updated 06/13/22 @ 22:[address] Wilfredo Talbot DO) Change in bowel habits History of colon polyps Skin lesion Home Medications NK 06/24/17 [History Last Taken Unknown] Allergy/AdvReac Type Severity Reaction Status Date / Time No Known Allergies Allergy Verified 07/12/17 08:52 Family History Brother Heart disease Surgical History (Updated 06/13/22 @ 22:[address] Wilfredo Talbot DO) History of colectomy S/P colonoscopy Status post excisional biopsy Social History (Updated 07/12/17 @ 09:08 by Nakita QUIROGA, PA-C) Smoking Status: Unknown if ever smoked alcohol intake: never ROS ROS ED ROS Narrative Constitutional: Denies fever HEENT: Denies sore throat Neck: Denies neck pain Cardiovascular: Denies chest pain, syncope Respiratory: Denies shortness of breath GI: Endorses nausea vomiting abdominal pain : Denies any urinary retention, endorses chronic urinary frequency Musculoskeletal: Endorses back pain Neurologic: Denies numbness weakness or loss of sensation Skin denies rash EXAM Physical Exam Narrative Exam Narrative: Nursing triage notes reviewed, Vital signs reviewed Constitutional: please see mdm HENT: MMM Eyes: Pupils equal round and reactive to light, Extraocular muscles intact Neck: No stridor, no JVD, full neck ROM Lungs: Clear to auscultation, No wheezing or rales. No increased work of breathing, no conversational dyspnea, no accessory muscle use, no nasal flaring. No respiratory distress noted Heart: Regular rate and rhythm, No murmurs, No rubs and No gallops, 2+ distal pulses (radial, femoral, posterior tibial) in all extremities Abdomen: Soft, there is no tenderness,no rigidity, rebound or guarding, no obvious peritoneal signs, no palpable pulsatile abdominal masses, no auscultatedabdominal bruit : No CVAT Extremities: No edema Neuro: Intact sensation L1-S1 dermatomal distributions. Intact 5/5 strength in hip flexion (T12-L3). Knee extension (L2-L4). Ankle dorsiflexion (L4-L5). Ankle plantar flexion (S1). Great toe extension (L5). 2+ patellar and AchillesDTRs. Skin: No rash or lesions noted Const Vital Signs: 06/13/22 18:40 Temperature 98.2 F Temperature Source Temporal Pulse Rate 73 Respiratory Rate 15 Blood Pressure 128/71 H Blood Pressure Mean 90 Pulse Ox 95 Oxygen Delivery Method Room Air [facility] Narrative Medical decision making narrative: Chief Complaint: Back pain External records reviewed: No recent advanced imaging of the axial skeleton I considered: AAA, pyelonephritis, nephrolithiasis, muscular back pain, space-occupying lesion including epidural abscess, epidural hematoma, mass. I considered obtain MRI of the lumbar spine to rule out space-occupying lesion however patient had no red flag symptoms such as urinary retention, bowel or bladder incontinence, focal neurologic deficit, history of IV drug use, fever. No signs of cauda equina history or exam. No indication for emergent MRI at this time. I was concerned about intra-abdominal pathology given the patient's advanced age, history of polyps, history of non-Hodgkin's lymphoma status post remote chemo and radiation. I did obtain a CT scan of patient's abdomen pelvis as wellas labs to rule out intra-abdominal pathologies, dehydration, hepatobiliary pathology, pancreatitis, UTI, pyelonephritis, nephrolithiasis. Labs and imaging are were remarkable for evidence of a AAA that was proximally 5cm. There is no leakage, extravasation or rupture noted. He was hemodynamically stable and pain-free on reevaluation. Did discuss case with vascular surgery recommended discharge and close outpatient follow-up. Urine without evidence of inflammation or signs of UTI. Given lack of urine information no signs of pyelonephritis. No significant dehydration noted. No evidence of atrial fibrillation to suggest mesenteric ischemia Factors affecting care: History of colon polyps, non-Hodgkin's lymphoma (status post chemoradiation remotely) Social determinants of health: Elderly, poor health literacy Shared decision making: I will have a discussion with the patient and or visitors regarding risk/benefits of further testing or admission. They will be made aware of of the risk/benefits inherent in this decision they will be given the opportunity to voice understanding. Consults: Vascular surgery (Dr. Ortiz, recommended no acute surgical intervention, further recommended discharge and close outpatient follow-up) Lab Data Attestation: I reviewed the patient's lab results. Lab results narrative: CBC without evidence of leukocytosis to suggest systemic inflammation, no significant anemia or thrombocytopenia BMP without significant electrolyte abnormalities, no anion gap to suggest endorgan hypoperfusion, no acute kidney injury Lactate is wnl indicating no end-organ hypoperfusion and/or hypoxia. Lipase within normal limits, no evidence of pancreatitis LFTs without evidence of obstructive hepatobiliary pathology Urinalysis without evidence of UTI Labs: Laboratory Results - last 24 hr 06/13/22 06/13/22 06/13/22 19:55 19:55 19:55 WBC 5.5 RBC 4.57 L Hgb 14.3 Hct 42.9 MCV 93.9 MCH 31.3 MCHC 33.3 RDW Std Deviation 43.2 RDW Coeff of Carlos 12.4 Plt Count 155 MPV 10.6 Immature Gran % (Auto) 0.200 Neut % (Auto) 69.0 Lymph % (Auto) 18.0 L Mills % (Auto) 12.4 H Eos % (Auto) 0.2 Baso % (Auto) 0.2 Absolute Neuts (auto) 3.8 Absolute Lymphs (auto) 0.99 Nucleated RBC % 0 Sodium 139 Potassium 3.9 Chloride 104 Carbon Dioxide 27.0 Anion Gap 8 BUN 16 Creatinine 0.90 Estim Creat Clear Calc 51.59 Est GFR (MDRD) Af Amer 102 Est GFR (MDRD) Non-Af 85 BUN/Creatinine Ratio 17.7 Glucose 104 Lactic Acid 1.0 Calcium 8.7 Total Bilirubin 0.50 Direct Bilirubin 0.17 AST 17 ALT 19 Alkaline Phosphatase 47 Total Protein 6.8 Albumin 3.5 Globulin 3.3 Lipase 143 Urine Color Urine Clarity Urine pH Ur Specific [place] Urine Protein Urine Glucose (UA) Urine Ketones Urine Occult Blood Urine Nitrite Urine Bilirubin Urine Urobilinogen Ur Leukocyte Esterase Urine RBC Urine WBC Ur Squamous Epith Cells Urine Bacteria Urine Mucus 06/13/22 20:50 WBC RBC Hgb Hct MCV MCH MCHC RDW Std Deviation RDW Coeff of Carlos Plt Count MPV Immature Gran % (Auto) Neut % (Auto) Lymph % (Auto) Mills % (Auto) Eos % (Auto) Baso % (Auto) Absolute Neuts (auto) Absolute Lymphs (auto) Nucleated RBC % Sodium Potassium Chloride Carbon Dioxide Anion Gap BUN Creatinine Estim Creat Clear Calc Est GFR (MDRD) Af Amer Est GFR (MDRD) Non-Af BUN/Creatinine Ratio Glucose Lactic Acid Calcium Total Bilirubin Direct Bilirubin AST ALT Alkaline Phosphatase Total Protein Albumin Globulin Lipase Urine Color Yellow Urine Clarity Clear Urine pH 6.5 Ur Specific [place] 1.010 Urine Protein Negative Urine Glucose (UA) Normal Urine Ketones 15 H Urine Occult Blood Negative Urine Nitrite Negative Urine Bilirubin Negative Urine Urobilinogen Normal Ur Leukocyte Esterase Negative Urine RBC 0 SEEN Urine WBC 0 SEEN Ur Squamous Epith Cells 0 SEEN Urine Bacteria 0 SEEN Urine Mucus 0 SEEN Radiography Diagnostic Testing: Clinical Impression(s) from Imaging Studies Abdomen/Pelvis CT 06/13/22 19:40 IMPRESSION: 1. Fusiform infrarenal abdominal aortic aneurysm measuring up to about 5 cm in maximum dimension (anterior to posterior) without adjacent fluid or inflammation. Is no evidence of leakage or rupture. 2. Fluid within nondistended loops of small bowel and within stomach without bowel wall thickening or surrounding inflammation can be normal or can be seen with gastroenteritis in the right clinical setting. 3. Small focal infiltrate involving the right lower lobe. Groundglass opacities at the posterior lower lobes bilaterally. Consider infectious or inflammatory etiologies. 4. Prostatomegaly with calcifications, nonspecific. Correlate with PSA levels. Electronically Signed: Jesus Alberto Rueda MD at 21:40 EST , Discharge Plan Triage Chief Complaint: Back ED Provider: Dahiana,Wilfredo Dx/Rx/DC Orders Clinical Impression: AAA (abdominal aortic aneurysm), History of colon polyps, History of colectomy,Tobacco abuse Prescriptions: No Action NK Primary Care Provider: Stanley Kaiser Referrals: Eriberto Ortiz MD [Med Staff - Active Staff] - As soon as possible Activity Restrictions/Additional Instructions: Please return if develop worsening pain, flank pain, back pain, abdominal pain. Please return if you lose consciousness. Please return if you become pale, weakor if your symptoms change or worsen in any way. Please follow-up with Dr. Ortiz (vascular surgeon) for outpatient evaluation and to discuss surgical options. Disposition Disposition: Home, Self Care What to do if you have Problems For any increased pain, shortness of breath, bleeding, nausea or vomiting, chestpain, or any unexpected problems, contact your Primary Care Provider. Call [facility] ([phone]) or report to the closest Emergency Room. Call 911 if necessary. 06/13/222207 <Electronically signed by Wilfredo Talbot DO> Cosigner Signature (if applicable): CC: Dr. Eriberto Ortiz MD; Dr. Stanley Kaiser MD ~ Signed [facility] Work Phone: [phone]) 190-541501-28-2023 History of Present illness Narrative* Stanley Kaiser MD - 06/13/2022 10:26 AM EST Patient [...] HISTORY Diagnosis Date Lymphoma in remission (HCC) 2000 had radiation tx and chemo PAST SURGICAL HISTORY Procedure Laterality Date COLONOSCOP W/ OR W/O [facility] SPEC 02/22/2013 Colonoscopy COLONOSCOPY 07/04/17 COLONOSCOPY VIA STOMA W OR W/O [facility] 04/27/14 PART REMOVAL COLON W COLOPROCTOSTOMY 04-10-13 [...] C (97.8 F) Ht 167.6 cm (5' 6) Wt 60.3 kg (133 lb) SpO2 95% [...] of lymphoma. If continues, consider ct etc. Stanley Kaiser MD [facility] History of Past illness Narrative* Problem Noted Date Resolved Date Benign neoplasm of colon 04/27/2014 014 documented as of this encounter (statuses as of 06/13/2022) [place] [address]-12-2014 History of Past illness Narrative* Problem Noted Date Resolved Date Benign neoplasm of colon 04/27/2014 014 documented as of this encounter (statuses as of 06/15/2022) [place] [address]-12-2014 History of Past illness Narrative* Problem Noted Date Resolved Date Benign neoplasm of colon 04/27/2014 014 documented as of this encounter (statuses as of 11/20/2022) [facility] of Past illness Narrative* Problem Noted Date Diagnosed Date Resolved Date Benign neoplasm of colon 04/27/201404/2014 documented as of this encounter (statuses as of 11/21/2022) [facility] History of Past illness Narrative* Problem Noted Date Diagnosed Date Resolved Date Benign neoplasm of colon 04/27/201404/2014 documented as of this encounter (statuses as of 11/24/2022) [facility] of Past illness Narrative* Problem Noted Date Diagnosed Date Resolved Date Benign neoplasm of colon 04/27/201404/2014 documented as of this encounter (statuses as of 11/27/2022) [facility] note* Diagnosis Abdominal discomfort in left upper quadrant- Primary Abdominal pain, left upper quadrant History of lymphoma Personal history of other lymphatic and hematopoietic neoplasm documented in this encounter [facility] noteNo assessment information availableWSelect [facility] [place] Work Phone: Evaluation note* Diagnosis Proteinuria, unspecified type- Primary [facility]* Diagnosis Acute cough- Primary Abdominal aortic aneurysm (AAA) without rupture, unspecified part (HCC) Bronchitis Bronchitis, not specified as acute or chronic Weight loss Loss of weight documented [facility] this encounter [facility]* Diagnosis Leukocytosis, unspecified type- Primary [facility] in this encounter [facility]* Diagnosis Bacterial pneumonia- Primary Bacterial pneumonia, unspecified Weight loss Loss of weight documented [facility] this encounter [facility]* Diagnosis Bacterial pneumonia- Primary Bacterial pneumonia, unspecified Abdominal aortic aneurysm (AAA) without rupture, unspecified part (HCC) Essential (primary) hypertension Unspecified essential hypertension Mixed hyperlipidemia [facility] this [facility]* Diagnosis Cervical mass Other specified noninflammatory disorder of cervix History of lymphoma Personal history of other lymphatic and hematopoietic neoplasm documented in this encounter [facility]* Diagnosis Neck mass- Primary Swelling, mass, or lump in head and neck documented in this encounter [facility]* Diagnosis Hyperglycemia- Primary Other abnormal glucose [facility] this encounter [facility]* Diagnosis Prediabetes- Primary Other abnormal glucose documented in this encounter [facility]* Diagnosis Neck mass- Primary Swelling, mass, or lump in head and neck Mixed hyperlipidemia History of lymphoma Personal history of other lymphatic and hematopoietic neoplasm Prediabetes Other abnormal glucose documented in this encounter [facility]* Diagnosis 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, unspecified follicular lymphoma type (HCC)- Primary documented in this encounter [facility] note* Diagnosis 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, unspecified follicular lymphoma type (HCC) documented in this encounter [facility] note* Diagnosis 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, unspecified follicular lymphoma type (HCC)- Primary documented in this encounter [facility] note* Diagnosis 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, unspecified follicular lymphoma type (HCC)- Primary documented in this encounter [facility] note* Diagnosis 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, unspecified follicular lymphoma type (HCC)- Primary documented in this encounter [facility] note* Diagnosis Essential (primary) hypertension- Primary Unspecified essential hypertension Abdominal aortic aneurysm (AAA) without rupture, unspecified part (HCC) Lymphoma, unspecified body region, unspecified lymphoma type (HCC) Prediabetes Other abnormal glucose Screening for depression Encounter for screening examination for other mental health and behavioral disorders documented in this encounter [facility] note* Diagnosis Mixed hyperlipidemia documented in this encounter [facility] note* Diagnosis Bacterial pneumonia Bacterial pneumonia, unspecified documented in this encounter [facility] note* Diagnosis Acute cough Bronchitis Bronchitis, not specified as acute or chronic Weight loss Loss of weight documented in this encounter [facility] note* Diagnosis Abdominal aortic aneurysm (AAA) without rupture, unspecified part (HCC)- Primary Mixed hyperlipidemia Essential (primary) hypertension Unspecified essential hypertension Lymphoma, unspecified body region, unspecified lymphoma type (HCC) Prediabetes Other abnormal glucose Tobacco user Tobacco use disorder documented in this encounter [facility] note* Diagnosis 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, unspecified follicular lymphoma type (HCC)- Primary Tobacco user Tobacco use disorder documented in this encounter [facility] note* Diagnosis Elevated bilirubin- Primary Jaundice, unspecified, not of [facility] instructions Additional Instructions Please return if develop worsening pain, flank pain, back pain, abdominal pain. Please return if you lose consciousness. Please return if you become pale, weak or if your symptoms change or worsen in any way. Please follow-up with Dr. Ortiz (vascular surgeon) for outpatient evaluation and to discuss surgical options.[facility] Work Phone: Hospital Discharge instructions Additional Instructions Please follow-up with PCP regarding her elevated blood pressure. Please present to your appointment with Dr. Ortiz tomorrow morning. 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, unspecified follicular lymphoma type (HCC) Procedures NM PET/CT SKULL-THIGH INITIAL PET IMAGING CT ATTENUATION SKULL BASE MID-THIGH Tomas Fontenot DO [address] [place] [address] Molecular & Functional Imaging [address] [place] [address] Referral ID Status Reason Start Date Expiration Date Visits Requested Visits Authorized [id number] Authorized Auto-Generat ed Referral 08/09/2023 09/07/2024 1 1 [facility] Narrative* Diagnostic Procedure Only (Routine) - Closed Specialty Diagnoses / Procedures Referred By Mervin singletary Referred To Contact MOLECULAR & FUNCTIONAL IMAGING Diagnoses 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, unspecified follicular lymphoma type (HCC) Procedures NM PET/CT SKULL-THIGH INITIAL PET IMAGING CT ATTENUATION SKULL BASE MID-THIGH Tomas Fontenot DO [address] [place] [address] Molecular & Functional Imaging [address] [place] [address] Referral ID Status Reason Start Date Expiration Date V isits Requested Visits Authorized [id number] Closed Auto-Generate d Referral 08/09/2023 09/07/2024 1 1 [facility] Chief Complaint and Reason for Visit Chief Complaint back Chief Complaint back ABD Chief Complaint AAA ISSUES AAA Chief Complaint FNA Chief Complaint Admit Date AAA September 14, 2024 2:23pm ABD PAIN September 17, 2024 6:11am Discuss CTA results/2 Y FU September 18, 2024 2:22pm Reason for Visit Admit Date AAA (abdominal aortic aneurysm) without rupture September 18, 2024 2:22pm Chief Complaint Admit Date AAA September 14, 2024 2:23pm ABD PAIN September 17, 2024 6:11am Discuss CTA results/2 Y FU September 18, 2024 2:22pm Surgical Clearance ([place]) September 26 1:31pm Reason for Visit Admit Date AAA (abdominal aortic aneurysm) without rupture September 18, 2024 2:22pm Hyperlipidemia September 26, 2024 1:31p m Tobacco abuse September 26, 2024 1:31p m AAA (abdominal aortic aneurysm) without rupture September 26, 2024 1:31pm Hypertension September 26, 2024 1:31p m Chief Complaint Admit Date AAA September 14, 2024 2:23pm ABD PAIN September 17, 2024 6:11am Discuss CTA results/2 Y FU September 18, 2024 2:22pm Surgical Clearance ([place]) September 26 1:31pm Endovascular Repair, Abdominal Aortic An eurism, Gr October 23, 2024 11:16am Endovascular Repair, Abdominal Aortic An eurism, Gr October 23, 2024 4:18pm Reason for Visit Admit Date AAA (abdominal aortic aneurysm) without rupture September 18, 2024 2:22pm Hyperlipidemia September 26, 2024 1:31p m Tobacco abuse September 26, 2024 1:31p m AAA (abdominal aortic aneurysm) without rupture September 26, 2024 1:31pm Hypertension September 26, 2024 1:31p m AAA (abdominal aortic aneurysm) without rupture October 23, 2024 4:18pm Advance Directives No Advanced Directives Records Found Advance Directive Response Recorded Date/ Time Advance Directives No June 1:11pm Living Will No June 13 7:59pm Power of Loss Prevention Associate No June 13, 2022 7:59pm Advance Directive Response Recorded Date/ Time Advance Directives No June 1:11pm Living Will No June 15 1:25pm Power of Loss Prevention Associate No June 15, 2022 1:25pm Advance Directive Response Recorded Date/ Time Advance Directives No June 2:11pm Living Will No October 02, 2022 1 1:05am Power of Loss Prevention Associate No October 02, 2022 11:05am Advance Directive Response Recorded Date/ Time Advance Directives No June 1:11pm Living Will No October 02, 2022 1 0:05am Power of Loss Prevention Associate No October 02, 2022 10:05am Advance Directive Response Recorded Date/ Time Do you have a Healthcare Power of Loss Prevention Associate? No September 17, 2024 6:12am Advance Directives No June 2:11pm Advance Directive Response Recorded Date/ Time Do you have a Healthcare Power of Loss Prevention Associate? Yes October 23, 2024 5:47pm Do you have a Healthcare Power of Loss Prevention Associate? No September 17, 2024 6:12am Advance Directives No June 2:11pm Reason for Referral Specialty Diagnoses / Procedures Referred By Mervin singletary Referred To Contact CT IMAGING Diagnoses Cervical mass History of lymphoma Procedures CT NECK SOFT TISSUE W IVCON CT SOFT TISSUE NECK W/CONTRAST MATERIAL Stanley Kaiser MD [address] [place] [address] Ct Imaging [id number] Referral ID Status Reason Start Date Expiration Date V isits Requested Visits Authorized [id number] Closed Auto-Generate d Referral 06/16/2023 07/15/2024 1 1 Specialty Diagnoses / Procedures Referred By Mervin singletary Referred To Contact Ent - Otolaryngology Diagnoses Neck mass Procedures CONSULT TO ENT OFFICE/OUTPATIENT [facility] 60 MINUTES Stanley Kaiser MD [address] [place] [address] Referral ID Status Reason Start Date Expiration Date Visits Requested Visits Authorized [id number] Authorized PCP Requested Referral 06/18/2023 06/17/2024 1 1 Specialty Diagnoses / Procedures Referred By Mervin singletary Referred To Contact Vascular Surgery Diagnoses Abdominal aortic aneurysm (AAA) without rupture, unspecified part (HCC) Procedures [place] [address] [place] [id number] Referral ID Status Reason Start Date Expiration Date Visits Requested Visits Authorized [id number] Ref Not Required PCP Requested Referral 12/29/2023 12/28/2024 1 1 Summary Purpose Family History Relationship Condition Age at Onset Recorded Date/T garfield brother Cardiac disease Unknown mother Malignant neoplasm Unknown No Family History Records Found Additional Source Comments Source Comments (unrecognize d section and content) In the event this informatio n is protected by the Federal Confidentiality of Alcohol and Drug Abuse Patient Records regulations: The Federal rules restrict any use of the information to criminally investigate or prosecute any alcohol or drug abuse patient.[facility] Center[facility] the event this information is protected by the Federal Confidentiality of Alcohol and Drug Abuse Patient Records regulations: The Federal rules restrict any use of the information to criminally investigate or prosecute any alcohol or drug abuse patient.[facility] Center[facility] the event this information is protected by the Federal Confidentiality of Alcohol and Drug Abuse Patient Records regulations: The Federal rules restrict any use of the information to criminally investigate or prosecute any alcohol or drug abuse patient.[facility] CenterIn the event this information is protected by the Federal Confidentiality of Alcohol and Drug Abuse Patient Records regulations: The Federal rules restrict any use of the information to criminally investigate or prosecute any alcohol or drug abuse patient.[facility] Center[facility] the event this information is protected by the Federal Confidentiality of Alcohol and Drug Abuse Patient Records regulations: The Federal rules restrict any use of the information to criminally investigate or prosecute any alcohol or drug abuse patient.[facility] CenterIn the event this information is protected by the Federal Confidentiality of Alcohol and Drug Abuse Patient Records regulations: The Federal rules restrict any use of the information to criminally investigate or prosecute any alcohol or drug abuse patient.[facility] CenterIn the event this information is protected by the Federal Confidentiality of Alcohol and Drug Abuse Patient Records regulations: The Federal rules restrict any use of the information to criminally investigate or prosecute any alcohol or drug abuse patient.[facility] CenterIn the event this information is protected by the Federal Confidentiality of Alcohol and Drug Abuse Patient Records regulations: The Federal rules restrict any use of the information to criminally investigate or prosecute any alcohol or drug abuse patient.[facility] CenterIn the event this information is protected by the Federal Confidentiality of Alcohol and Drug Abuse Patient Records regulations: The Federal rules restrict any use of the information to criminally investigate or prosecute any alcohol or drug abuse patient.[facility] CenterIn the event this information is protected by the Federal Confidentiality of Alcohol and Drug Abuse Patient Records regulations: The Federal rules restrict any use of the information to criminally investigate or prosecute any alcohol or drug abuse patient.[facility] CenterIn the event this information is protected by the Federal Confidentiality of Alcohol and Drug Abuse Patient Records regulations: The Federal rules restrict any use of the information to criminally investigate or prosecute any alcohol or drug abuse patient.[facility] CenterIn the event this information is protected by the Federal Confidentiality of Alcohol and Drug Abuse Patient Records regulations: The Federal rules restrict any use of the information to criminally investigate or prosecute any alcohol or drug abuse patient.[facility] CenterIn the event this information is protected by the Federal Confidentiality of Alcohol and Drug Abuse Patient Records regulations: The Federal rules restrict any use of the information to criminally investigate or prosecute any alcohol or drug abuse patient.[facility] CenterIn the event this information is protected by the Federal Confidentiality of Alcohol and Drug Abuse Patient Records regulations: The Federal rules restrict any use of the information to criminally investigate or prosecute any alcohol or drug abuse patient.[facility] CenterIn the event this information is protected by the Federal Confidentiality of Alcohol and Drug Abuse Patient Records regulations: The Federal rules restrict any use of the information to criminally investigate or prosecute any alcohol or drug abuse patient.[facility] CenterIn the event this information is protected by the Federal Confidentiality of Alcohol and Drug Abuse Patient Records regulations: The Federal rules restrict any use of the information to criminally investigate or prosecute any alcohol or drug abuse patient.[facility] CenterIn the event this information is protected by the Federal Confidentiality of Alcohol and Drug Abuse Patient Records regulations: The Federal rules restrict any use of the information to criminally investigate or prosecute any alcohol or drug abuse patient.[facility] CenterIn the event this information is protected by the Federal Confidentiality of Alcohol and Drug Abuse Patient Records regulations: The Federal rules restrict any use of the information to criminally investigate or prosecute any alcohol or drug abuse patient.[facility] CenterIn the event this information is protected by the Federal Confidentiality of Alcohol and Drug Abuse Patient Records regulations: The Federal rules restrict any use of the information to criminally investigate or prosecute any alcohol or drug abuse patient.[facility] CenterIn the event this information is protected by the Federal Confidentiality of Alcohol and Drug Abuse Patient Records regulations: The Federal rules restrict any use of the information to criminally investigate or prosecute any alcohol or drug abuse patient.[facility] CenterIn the event this information is protected by the Federal Confidentiality of Alcohol and Drug Abuse Patient Records regulations: The Federal rules restrict any use of the information to criminally investigate or prosecute any alcohol or drug abuse patient.[facility] CenterIn the event this information is protected by the Federal Confidentiality of Alcohol and Drug Abuse Patient Records regulations: The Federal rules restrict any use of the information to criminally investigate or prosecute any alcohol or drug abuse patient.[facility] CenterIn the event this information is protected by the Federal Confidentiality of Alcohol and Drug Abuse Patient Records regulations: The Federal rules restrict any use of the information to criminally investigate or prosecute any alcohol or drug abuse patient.[facility] CenterIn the event this information is protected by the Federal Confidentiality of Alcohol and Drug Abuse Patient Records regulations: The Federal rules restrict any use of the information to criminally investigate or prosecute any alcohol or drug abuse patient.[facility] CenterIn the event this information is protected by the Federal Confidentiality of Alcohol and Drug Abuse Patient Records regulations: The Federal rules restrict any use of the information to criminally investigate or prosecute any alcohol or drug abuse patient.[facility] CenterIn the event this information is protected by the Federal Confidentiality of Alcohol and Drug Abuse Patient Records regulations: The Federal rules restrict any use of the information to criminally investigate or prosecute any alcohol or drug abuse patient.[facility] CenterIn the event this information is protected by the Federal Confidentiality of Alcohol and Drug Abuse Patient Records regulations: The Federal rules restrict any use of the information to criminally investigate or prosecute any alcohol or drug abuse patient.[facility] CenterIn the event this information is protected by the Federal Confidentiality of Alcohol and Drug Abuse Patient Records regulations: The Federal rules restrict any use of the information to criminally investigate or prosecute any alcohol or drug abuse patient.[facility] CenterIn the event this information is protected by the Federal Confidentiality of Alcohol and Drug Abuse Patient Records regulations: The Federal rules restrict any use of the information to criminally investigate or prosecute any alcohol or drug abuse patient.[facility] CenterIn the event this information is protected by the Federal Confidentiality of Alcohol and Drug Abuse Patient Records regulations: The Federal rules restrict any use of the information to criminally investigate or prosecute any alcohol or drug abuse patient.[facility] CenterIn the event this information is protected by the Federal Confidentiality of Alcohol and Drug Abuse Patient Records regulations: The Federal rules restrict any use of the information to criminally investigate or prosecute any alcohol or drug abuse patient.[facility] CenterIn the event this information is protected by the Federal Confidentiality of Alcohol and Drug Abuse Patient Records regulations: The Federal rules restrict any use of the information to criminally investigate or prosecute any alcohol or drug abuse patient.[facility] Reason for Visit (unrecogniz ed section and content) Reason Comments Abdominal Pain Reason Comments Results Reason Comments Chest Congestion Reason Comments Pneumonia Follow up Reason Comments Follow Up Reason Comments Radiology CT Specialty Diagnoses / Procedures Referred By Mervin t Referred To Contact CT IMAGING Diagnoses Cervical mass History of lymphoma Procedures CT NECK SOFT TISSUE W IVCON CT SOFT TISSUE NECK W/CONTRAST MATERIAL Stanley Kaiser MD [address] [place] [address] [place] [address] Referral ID Status Reason Start Date Expiration Date V isits Requested Visits Authorized [id number] Closed Auto-Generate d Referral 06/16/2023 07/15/2024 1 1 Reason Comments Results Reason Comments New Patient Reason Comments New Patient Reason Comments Radiology NM Reason Comments Established Patient Reason Comments AVS 08/26 Reason Comments 6 Month Exam Reason Onset Date Comments Refill Request 12/31/2023 Reason Comments Scheduling Bone Biopsy Reason Comments Appointment Pre procedure instru ctions for ct bx given. Provided pt with office number to call with any further questions. Reason Comments 6 Month Exam Reason Comments Results Elevated bilirubin Care Teams (unrecognized sec tion and content) High Tension Tester Relationship Specialty Start Date End Date Stanley Kaiser MD [address] [place] [address] PCP - General Family Medicine 09/21/12 Team Status: Active Member Role Status Dates Dr. Stanley Kaiser MD Family Provider Active Dr. Stanley Kaiser MD Primary Care Provider Active Team Status: Inactive Member Role Status Dates Dr. Stanley Kaiser MD Primary Care Provider Active Dr. Wilfredo Talbot DO Emergency Provider Active High Tension Tester Relationship Specialty Start Date End Date Stanley Kaiser MD [address] [facility], [place] [address] PCP - General Family Medicine 09/21/12 High Tension Tester Relationship Specialty Start Date End Date Stanley Kaiser MD [address] [facility], [place] [id number] PCP - General Family Medicine 09/21/12 High Tension Tester Relationship Specialty Start Date End Date Stanley Kaiser MD [address] [facility], [place] [id number] PCP - General Family Medicine 09/21/12 High Tension Tester Relationship Specialty Start Date End Date Stanley Kaiser MD [address] [place], [place] [address] PCP - General Family Medicine 09/21/12 High Tension Tester Relationship Specialty Start Date End Date Stanley Kaiser MD [address] [facility], [place] [id number] PCP - General Family Medicine 09/21/12 Team Status: Inactive Member Role Status Dates Dr. Stanley Kaiser MD Primary Care Provider Active JUNAID Rivas Attending Provider, Referring Provider Active Team Status: Inactive Member Role Status Dates Dr. Stanley Kaiser MD Primary Care Provider Active Nitin Carney MD Attending Provider, Emergency Provid er Active High Tension Tester Relationship Specialty Start Date End Date Stanley Kaiser MD [address] [facility], [place] [address] PCP - General Family Medicine 09/21/12 High Tension Tester Relationship Specialty Start Date End Date Stanley Kaiser MD [address] [place] [address] PCP - General Family Medicine 09/21/12 High Tension Tester Relationship Specialty Start Date End Date tSanley Kaiser MD [address] [place], [place] [id number] PCP - General Family Medicine 09/21/12 High Tension Tester Relationship Specialty Start Date End Date Stanley Kaiser MD [address] [place] [address] PCP - General Family Medicine 09/21/12 High Tension Tester Relationship Specialty Start Date End Date Stanley Kaiser MD [address] [place] [address] PCP - General Family Medicine 09/21/12 High Tension Tester Relationship Specialty Start Date End Date Stanley Kaiser MD [address] [place] [address] PCP - General Family Medicine 09/21/12 Team Status: Inactive Member Role Status Dates Dr. Stanley Kaiser MD Primary Care Provider Active Dr. Yogi Faust MD Attending Provider, Julian ing Provider Active High Tension Tester Relationship Specialty Start Date End Date Stanley Kaiser MD [address] [place] [address] PCP - General Family Medicine 09/21/12 High Tension Tester Relationship Specialty Start Date End Date Stanley Kaiser MD [address] [place] [address] PCP - General Family Medicine 09/21/12 High Tension Tester Relationship Specialty Start Date End Date Stanley Kaiser MD [address] [facility] [place] [address] PCP - General Family Medicine 09/21/12 High Tension Tester Relationship Specialty Start Date End Date Stanley Kaiser MD [address] [facility] [place] [address] PCP - General Family Medicine 09/21/12 High Tension Tester Relationship Specialty Start Date End Date Stanley Kaiser MD [address] [place] [address] PCP - General Family Medicine 09/21/12 High Tension Tester Relationship Specialty Start Date End Date Stanley Kaiser MD [address] [place] [address] PCP - General Family Medicine 09/21/12 Chelsy Shook, ELECTRIFIER OPERATOR.WELDING OPERATOR [address] [place] [address] Veterans Service Representative Family Medicine 04/24/24 Shruti Galeano, ELECTRIFIER OPERATOR.WELDING OPERATOR [address] [place] [address] Veterans Service Representative Family Medicine 04/24/24 High Tension Tester Relationship Specialty Start Date End Date Stanley Kaiser MD [address] [place] [address] PCP - General Family Medicine 09/21/12 Chelsy Shook ELECTRIFIER OPERATOR.WELDING OPERATOR [address] [facility] [place] [address] Veterans Service Representative Family Medicine 04/24/24 Shruti Galeano ELECTRIFIER OPERATOR.WELDING OPERATOR [address] [place] [address] Veterans Service Representative Family [facility] 04/24/24 High Tension Tester Relationship Specialty Start Date End Date Stanley Kaiser MD [address] [place] [address] PCP - General Family Medicine 09/21/12 Chelsy Shook, ELECTRIFIER OPERATOR.WELDING OPERATOR [address] [place] [address] Veterans Service Representative Family Medicine 04/24/24 Shruti Galeano ELECTRIFIER OPERATOR.WELDING OPERATOR [address] [place] [address] [facility] High Tension Tester Relationship Specialty Start Date End Date Stanley Kaiser MD [address] [place] [address] PCP - General Family Medicine 09/21/12 Chelsy Shook, ELECTRIFIER OPERATOR.WELDING OPERATOR [address] [place] [address] Veterans Service Representative Family Medicine 04/24/24 Shruti Galeano, ELECTRIFIER OPERATOR.WELDING OPERATOR [address] [place] [address] Veterans Service Representative Family Medicine 04/24/24 High Tension Tester Relationship Specialty Start Date End Date Stanley Kaiser MD [address] [place] [address] PCP - General Family Medicine 09/21/12 Chelsy Shook, ELECTRIFIER OPERATOR.WELDING OPERATOR [address] [place] [address] [facility] 04/24/24 Shruti Galeano APRN.WELDING OPERATOR [address] [place] [address] [facility] 04/24/24 Team Status: Active Member Role Status Dates Dr. Stanley Kaiser MD Primary Care Provider Active Team Status: Inactive Member Role Status Dates Dr. Stanley Kaiser MD Primary Care Provider Active Start: September 14, 2024 End: September 14, 2024 JUNAID Dumas Attending Provider Active Star t: September 14, 2024 End: September 14, 2024 JUNAID Dumas Referring Provider Active Star t: September 14, 2024 End: September 14, 2024 Team Status: Inactive Member Role Status Dates Dr. Stanley Kaiser MD Primary Care Provider Active Start: September 17, 2024 End: September 17, 2024 Dr. Juan M Mendez , DO Emergency Provider Activ e Start: September 17, 2024 End: September 17, 2024 Team Status: Inactive Member Role Status Dates Dr. Stanley Kaiser MD Primary Care Provider Active Start: September 18, 2024 End: September 18, 2024 Dr. Stanley Kaiser MD Referring Provider Active Start: September 18, 2024 End: September 18, 2024 Dr. Eriberto Ortiz MD Attending Provider Active S tart: September 18, 2024 End: September 18, 2024 Team Status: Inactive Member Role Status Dates Dr. Stanley Kaiser MD Primary Care Provider Active Start: September 17, 2024 End: September 17, 2024 Dr. Juan M Mendez DO Attending Provider Activ e Start: September 17, 2024 End: September 17, 2024 Dr. Juan M Mendez , DO Emergency Provider Activ e Start: September 17, 2024 End: September 17, 2024 Team Status: Inactive Member Role Status Dates Dr. Stanley Kaiser MD Primary Care Provider Active Start: September 26, 2024 End: September 26, 2024 Dr. Stanley Kaiser MD Referring Provider Active Start: September 26, 2024 End: September 26, 2024 Dr. Brayan Breaux MD Attending Provider Active Start: September 26, 2024 End: September 26, 2024 Team Status: Active Member Role Status Dates Dr. Stanley Kaiser MD Primary Care Provider Active Start: October 23, 2024 Dr. Eriberto Ortiz MD Admit Provider Active Start : October 23, 2024 Dr. Eriberto Ortiz MD Attending Provider Active S tart: October 23, 2024 Dr. Eriberto Ortiz MD Referring Provider Active S tart: October 23, 2024 Dr. Eriberto Ortiz MD Other Provider Active Start : October 23, 2024 Dr. Elkin Larson MD Other Provider Active Start: October 23, 2024 Dr. Brayan Breaux MD Other Provider Active St art: October 23, 2024 Team Status: Inactive Member Role Status Dates Dr. Stanley Kaiser MD Primary Care Provider Active Start: October 23, 2024 End: October 24, 2024 Dr. Eriberto Ortiz MD Admit Provider Active Start : October 23, 2024 End: October 24, 2024 Dr. Eriberto Ortiz MD Attending Provider Active S tart: October 23, 2024 End: October 24, 2024 Dr. Eriberto Ortiz MD Referring Provider Active S tart: October 23, 2024 End: October 24, 2024 Dr. Elkin Larson MD Other Provider Active Start: October 23, 2024 End: October 24, 2024 Dr. Brayan Breaux MD Other Provider Active St art: October 23, 2024 End: October 24, 2024 Goals (unrecognized section and content) Goals may be documented in a n alternate sectionGoals may be documented in an alternate sectionGoals may be documented in an alternate sectionGoals may be documented in an alternate sectionGoals may be documented in an alternate sectionGoals may be documented in an alternate sectionGoals may be documented in an alternate section (unrecognized sect ion and content) No Status Records FoundNo Status Records FoundNo Status Records Found INFORMATION SOURCE (unrecogn ized section and content) DATE CREATED AUTHOR 07/02/2024 [facility] DATE CREATED AUTHOR AUTHOR'S ORGANIZ ATION 09/21/2024 [facility] DATE CREATED AUTHOR AUTHOR'S ORGANIZ ATION 10/24/2024 [facility] FOR RECORDS PERTAINING TO PATIENTS WHO ARE [...] BE BASED ON THE PRIMARY CLINICAL RECORDS. [facility] provides no warranty or guarantee of the accuracy or completeness of information in this document.
[2024-10-31 16:15] LABS: ACT Activated Clotting Time 216 sec (74-137)
[2024-10-31 16:15] LABS: ACT Activated Clotting Time 251 sec (74-137)
[2024-10-31 16:15] LABS: ACT Activated Clotting Time 228 sec (74-137)
== END 2024-10-24 12:15 | disposition home or self-care (01) | DRG 269 ==
LOC: ICU 10-24 09:16
PROVIDERS: Anesthesiology; Internal Medicine Cardiovascular Disease; Admitting Provider Surgery Trauma Surgery; PCP Family Medicine; Referring Provider Surgery Trauma Surgery; Visit Provider Surgery Trauma Surgery
PROC: 04V03DZ Restriction of Abdominal Aorta with Intraluminal Device, Percutaneous Approach (ICD-10-PCS; principal; 2024-10-23 10:30)
DX: I71.43 Infrarenal abdominal aortic aneurysm, without rupture (principal); E78.5 Hyperlipidemia, unspecified; I10 Essential (primary) hypertension; F17.200 Nicotine dependence, unspecified, uncomplicated; Z79.82 Long term (current) use of aspirin; Z79.899 Other long term (current) drug therapy
CPT/HCPCS: 34705; 34713; 36200; 37236; 75625; 80048; 83735; 84100; 85025; 85347; 86850; 86900; 86901; 94640; 94668; 94762; 99252; 99406; A4648; C1725; C1769; C1894; Q9967; A4216; C1760; G0463; J2405

== ENCOUNTER → 2024-12-07 | Outpatient (CLI) | payer MEDICARE, BC, SELFPAY ==
--- NOTE | 2024-12-07 06:03 | CT_ITS ---
PROCEDURE: CTA ABD/PELVIS W/WO CONTRAST 12/07/2024 REASON FOR EXAM: S/P EVAR Macro CT abdomen and pelvis TECHNIQUE: CTA ABD/PELVIS W/WO CONTRAST Multiplanar Sagittal and Coronal images were obtained. CONTRAST: Isovue 370 VOLUME: 104 mL One or more dose reduction techniques were used (e.g., Automated exposure control, adjustment of the mA and/or kV according to patient size, use of iterative reconstruction technique). RADIATION DOSE SUMMARY: CTDlvol: 8.69 mGy DLP: 1242.70 mGycm COMPARISON: Thyromegaly. 09/17/2024. 09/14/2024. FINDINGS: Stable large infrarenal abdominal aortic aneurysm measuring 5.9 x 5.7 cm, unchanged. Interval placement of an aorto bi-iliac stent. Large intramural noncalcified component within the aneurysm. There is extensive atheromatous calcification seen within the aorta and its branches. There is no evidence of rupture or endoleak. The origin of the celiac, SMA, and bilateral renal arteries are patent. The ELVIN is not well visualized. Mild bibasilar dependent atelectasis. Right basilar scarring. The peripheral soft tissues are unremarkable. No suspicious lymphadenopathy. The liver has normal enhancement except for a small left hepatic cysts. The gallbladder is unremarkable. The pancreas, spleen, adrenals, and kidneys are unremarkable. The urinary bladder is unremarkable. Enlarged prostate. Normal caliber large and small bowel. CT/CTA Abd/Pelvis W/WO Contrast IMPRESSION: Interval placement of an aorto bi-iliac stent with stable size of the surroundi ng aneurysm. Chronic changes of the lung bases. Reading Location: [id number]
--- OUTSIDE RECORDS SUMMARY | 2024-12-07 06:07 | XMS RPT_ITS | CCD ---
Author Organization [facility] CliniSyid Care Team Providers Care Field Mechanic Name Role Phone Stanley Kaiser MD Primary Care Provider Stanley Kaiser MD Primary Care Provider Boone JUMPBASTING COLLAR BASTER.CONCIERGE MANAGERChelsy Unavailable Froylan JUMPBASTING COLLAR BASTER.CONCIERGE MANAGER, Shruti Ross Unavailable STANLEY [facility] Primary Care Unavailable HE, TOMAS A Referring Unavailable HE, TOMAS A Referring Unavailable STANLEY [facility] Primary Care Unavailable STANLEY [facility] Primary Care Unavailable PROVIDER, UNKNOWN Attending Unavailable PROVIDER, UNKNOWN Admitting Unavailable Dr. Stanley Kaiser MD Primary Care Provider Anna Stevenson Attending Provider Anna Stevenson Referring Provider Dr. Juan M [...] Provider Diana TEE, Dr. Wei Admit Provider [phone] Diana TEE, Dr. Wei Referring Provider Diana TEE, Dr. Wei Other Provider [phone] Neo TEE, Dr. Granger Other Provider [phone] Saeid TEE, Dr. Schmidt Other Provider Philippi, [facility] Primary Care Unavailable Marshall, Anna Attending Unavailable Marshall, Anna Referring Unavailable Philippi, [facility] Primary Care Unavailable Philippi, Stanley Referring Unavailable Breaux, Brayan Attending Unavailable Weeman, Elkin Consulting Unavailable Philippi, Stanley Primary Care Unavailable Marshall, Anna Attending Unavailable Diana, Eriberto Referring Unavailable Thomaston, Eriberto Admitting Unavailable Breaux, Brayan Consulting Unavailable Thomaston, Eriberto Consulting Unavailable Weeman, Elkin Consulting Unavailable Philippi, [facility] Primary Care Unavailable Diana, Eriberto Attending Unavailable Diana, Eriberto Referring Unavailable Thomaston, Eriberto Admitting Unavailable Saeid, Brayan Consulting Unavailable Weeman, Elkin Consulting Unavailable Po, [facility] Primary Care Unavailable Thomaston, Eriberto Attending Unavailable Diana, Eriberto Referring Unavailable Thomaston, Eriberto Admitting Unavailable Saeid, Brayan Consulting Unavailable Diana, Eriberto Consulting Unavailable Philippi, Stanley Primary Care Unavailable Marshall, Anna Attending Unavailable Po, Stanley Referring Unavailable Philippi, [facility] Primary Care Unavailable Philippi, Stanley Referring Unavailable Diana, Eriberto Attending Unavailable Marshall, Anna Attending Unavailable Marshall, Anna Referring Unavailable Philippi, [facility] Primary Care Unavailable Philippi, [facility] Primary Care Unavailable Juan M Mendez Attending Unavailabl e Medications Current Medications Medication Drug Class(es) Dates Sig (Normalized) Sig (Original) acetaminophen 500 mg oral tablet (2 sources) Start: 10-24-2024 take 2 tablets by mouth [...] by mouth. Take 1 tablet by navid th once daily. atorvastatin 80 mg oral tablet (20 sources) HMG-CoA Reductase Inhibitor Start: 023 End: 026 take 1 tablet by mouth once daily Atorvastatin 80 mg tablet Active 80 mg PO DAILY June 17, 2022 1:00am Comment on above: Take 80 mg by mouth once daily. Take 1 tablet by navid th once daily. hydroCHLOROthiazide 12.5 mg / losartan potassium 50 mg oral tablet (5 sources) Thiazide Diuretic, Angiotensin 2 Receptor Maria Del Rosario Start: 025 End: 025 Losartan-Hydrochlor othiazide 50-12.5 mg tablet Active 0.5 {tbl} PO daily October 06, 2024 12:00am Langlois (Nk) (2 sources) Start: 018 Langlois (Nk) Active June 24, 2017 12:00am Completed/Discontinued Medications Medication Drug Class(es) Dates Sig (Normalized) Sig (Original) acetaminophen 325 mg / HYDROcodone bitartrate 5 mg oral tablet (8 sources) Opioid Agonist Start: 04-12-2013 End: 06-17-2017 [...] unspecified] 11-23-2022 Chronic Disorders of lipid metabolism (13 sources) Mixed hyperlipidemia; Translations: [Mixed hyperlipidemia] Onset: [...] Onset: 11-20-2022 06-13-2022 Episodic Residual codes; unclassified (8 sources) History of colonoscopy; Translations: [Other specified postprocedural states] 07-12-2017 Episodic Residual codes; unclassified (3 sources) Tobacco use; Translations: [Tobacco user] Onset: 11-20-2022 Episodic Unclassified (1 source) Radiology NM Onset: 08-24-2023 Unclassified (4 sources) I71.40 - Abdominal aortic aneurysm, without rupture, unspecified Unclassified (1 source) Abdominal aortic aneurysm (AAA) without rupture, unspecified part (HCC); Translations: [Abdominal aortic aneurysm (AAA) without rupture, unspecified part (HCC)] Onset: 11-20-2022 Unclassified (2 sources) Infrarenal abdominal aortic aneurysm, without rupture; Translations: [Infrarenal abdominal aortic aneurysm, without rupture] Onset: 11-21-2024 Unclassified (1 source) Abdominal aortic aneurysm, without [...] Test Name Value Interpretation Reference Range Facility Surgery Visit Reporton 11-07 Surgery Visit Report [facility] [address] [place] [address] OFFICE VISIT Date of Service: 11/07/24 MR#: [id number] Acct: [id number] Name: VICK ROMAN Rep #: [id number] : 1935 Provider: JUNAID Dumas Age/Sex: 89/M Location: [facility] [place] Status: Signed Intake Vital Signs 09/17/24 06:12 10/23/24 17:47 11/07/24 13:49 Height 5 ft 4 in 5 ft 4.17 in Weight: 126 lb BP 167/86 H Blood Pressure Location Lt brachial Position Sitting Respiration 16 Pulse 72 Pulse Source Monitor Temp 98 F Temp Source Temporal Pulse Oximetry (%) 97 Oxygen Delivery Method room air Intake Visit Reasons: Post EVAR 2-4 WK FU Chief Complaint: follow aneurysm Is patient in pain?: No Allergies No Known Allergies Allergy (Verified 11/07/24 13:51) Medications ???Medication ???Instructions ???Recorded ???Confirmed ???Type atorvastatin 80 mg tablet 80 mg PO DAILY cholesterol #30 tab s 06/17/22 11/07/24 Rx aspirin 81 mg tablet,delayed 81 mg PO QDAY heart health 5 11/07/24 History release losartan 50 mg-hydrochlorothiazide 0.5 tab PO QDAY blood pressure 0 10/06/24 11/07/24 History 12.5 mg tablet acetaminophen 500 mg tablet 1,000 mg (2 x 500 mg) PO Q8 7 days 10/24/24 11/07/24 Rx #0 tabs Have you fallen in the past year?: No Subjective Details: Mr. 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 He reports he has been doing very well since the procedure, he has had no concerns. He reports the groin sites are well healed, declines exam of these areas today. He denies any abdominal/chest/flank/ back pain or claudication. He continues to take ASA and statin. Objective Details: A Ox3, NAD RRR Nonlabored respirations, CTA Abdomen nontender, soft to palpation Bilateral radial, DP, PT pulses palpable Coding Level of Care Code Global Post Op Diagnoses Status post endovascular aneurysm repair (EVAR) Z98.890; Z86.79 [facility] Medical History Alcohol use Loss of hearing Wears glasses Wears dentures History of stress test Cardiology follow-up encounter Hyperlipidemia AAA (abdominal aortic aneurysm) without rupture Hypertension Non-Hodgkin lymphoma Skin lesion History of colon polyps Surgical History Status post excisional biopsy S/P colonoscopy History of colectomy Family History (Reviewed 10/23/24 @ :[address] Elkin Larson MD) Brother Heart disease Mother , age 31 Cancer Social History Smoking Status: Heavy Smoker (>10/day) alcohol intake: never substance use type: does not use caffeine: Yes Assessment and Plan (No Qualifiers) Assessment and Plan (1) Status post endovascular aneurysm repair (EVAR): Status: Acute Plan He appears to be recovering well s/p EVAR. Will check updated GFR and creatinine. Will obtain 1 month post-op Abd/Pelvis CTA; if satisfactory anticipate then duplex at 6 and 12 months post-op for routine surveillance. Continue current medication regimen. Return to the office in 1 year, sooner as needed. 11/07/24 1429 Date Anna QUIROGA 11/07/24 1630 Cosigner Signature: Date (if applicable) Eriberto Ortiz MD CC: Dr. Stanley Kaiser MD Normal [facility] ACT Activated Clotting Timeo n 10-31-2024 ACTk CLOT TIME 251 sec High 74-137 [facility] Comment on above: Performed By: #### L 9100.0100 #### [facility] [address] [place], [address] ACTk CLOT TIME 228 sec High 74-137 [facility] Comment on above: Performed By: #### L 9100.0100 #### [facility] [address] [place], [address] ACTk CLOT TIME 216 sec High 74-137 [facility] Comment on above: Performed By: #### L 9100.0100 #### [facility] [address] [place], [address] Absolute lymphocyte countOrd ered By: Eriberto Ortiz on 10-24-2024 Lymphocytes Auto (Unsp spec) [#/Vol] 1.16 10*3/uL 0.83-4.51 [facility] Absolute neutrophil countOrd ered By: Eriberto Ortiz on 10-24-2024 Neutrophils (Bld) [#/Vol] 9.1 10*3/uL High 2.0-7.7 [facility] Anion gap in Serum or Plasma Ordered By: Eriberto Ortiz on 10-24-2024 Anion gap [Moles/Vol] 10 mmol/L 5-[address] [facility] Automated lymphocyte count a s percentage of total leukocytesOrdered By: Eriberto Ortiz on 10-24-2024 Lymphocytes/100 WBC Auto (Unsp spec) 10.4 % Low 19-41 [facility] BUN/creatinine ratioOrdered By: Eriberto Ortiz on 10-24-2024 Urea nitrogen/Creatinine [Mass ratio] 19.2 mg/mg 10- [facility] Basic Metabolic Profile (BMP )on 10-24-2024 BUN/CRE 19.2 RATIO Normal - [facility] Comment on above: Order Comment: RIMA Patel. PREVIOUS SPECIMEN REJECTED DUE TO HEMOLYSIS. 10/24/24406 Seymour Carter. Performed By: #### L 500.2500 #### [facility] [address] [place], [address] Calcium [Mass/Vol] 7.9 mg/dL Normal 7.6-11.0 [facility] Comment on above: Order Comment: REDRA W. PREVIOUS SPECIMEN REJECTED DUE TO HEMOLYSIS. 10/24/24406 Seymour L White. Performed By: #### L 500.2500 #### [facility] [address] [place], [address] Chloride [Moles/Vol] 104 mmol/L Normal 98-108 [facility] Comment on above: Order Comment: REDRA W. PREVIOUS SPECIMEN REJECTED DUE TO HEMOLYSIS. 10/24/24406 Seymour L White. Performed By: #### L 500.2500 #### [facility] [address] [place], [address] CO2 [Moles/Vol] 22.3 mmol/L Normal 21.0-32.0 [facility] Comment on above: Order Comment: REDRA W. PREVIOUS SPECIMEN REJECTED DUE TO HEMOLYSIS. 10/24/24406 Seymour L White. Performed By: #### L 500.2500 #### [facility] [address] [place], [address] Creatinine [Mass/Vol] 0.93 mg/dL Normal 0.70-1.[address] [facility] Comment on above: Order Comment: REDRA W. PREVIOUS SPECIMEN REJECTED DUE TO HEMOLYSIS. 10/24/24406 Seymour L White. Performed By: #### L 500.2500 #### [facility] [address] [place], [address] ECRCL 45.35 ml/min Low 50-250 [facility] Comment on above: Order Comment: REDRA W. PREVIOUS SPECIMEN REJECTED DUE TO HEMOLYSIS. 10/24/24406 Seymour L White. Performed By: #### L 500.2500 #### [facility] [address] [place], [address] GAP 10 Normal 5-15 [facility] Comment on above: Order Comment: REDRA W. PREVIOUS SPECIMEN REJECTED DUE TO HEMOLYSIS. 10/24/24406 Seymour L White. Performed By: #### L 500.2500 #### [facility] [address] [place], [address] GFR/1.73 sq M.predicted among non-blacks MDRD (S/P/Bld) [Vol rate/Area] 79 mL/min/{1.73_m2} Normal >60 [facility] Comment on above: Order Comment: REDRA W. PREVIOUS SPECIMEN REJECTED DUE TO HEMOLYSIS. 10/24/24406 Seymour Castañeda White. Result Comment: mL/m in/1.73m2 CKD-EPI Creatinine Equation (2020) Performed By: #### L 500.2500 #### [facility] [address] [place], [address] Glucose [Mass/Vol] 129 mg/dL High 70-99 [facility] Comment on above: Order Comment: REDRA W. PREVIOUS SPECIMEN REJECTED DUE TO HEMOLYSIS. 10/24/24406 Seymour Castañeda White. Performed By: #### L 500.2500 #### [facility] [address] [place], [address] Potassium [Moles/Vol] 4.7 mmol/L Normal 3.3-5.[address] [facility] Comment on above: Order Comment: REDRA W. PREVIOUS SPECIMEN REJECTED DUE TO HEMOLYSIS. 10/24/24406 Seymour Castañeda White. Result Comment: Hemo lysis present, Results??could be affected. ?? Performed By: #### L 500.2500 #### [facility] [address] [place], [address] Sodium [Moles/Vol] 137 mmol/L Normal 133-145 [facility] Comment on above: Order Comment: REDRA W. PREVIOUS SPECIMEN REJECTED DUE TO HEMOLYSIS. 10/24/24406 Seymour Castañeda White. Performed By: #### L 500.2500 #### [facility] [address] [place], [address] Urea nitrogen [Mass/Vol] 18 mg/dL Normal 4-19 [facility] Comment on above: Order Comment: REDRA W. PREVIOUS SPECIMEN REJECTED DUE TO HEMOLYSIS. 10/24/24406 Seymour L White. Performed By: #### L 500.2500 #### [facility] [address] [place], [address] BUN Normal 4-19 [facility] Comment on above: Result Comment: This specimen has been REJECTED due to Laboratory criteria: Hemolyzed. ZOILA POWER has been notified of need of recollection. 10/24/24406 Seymour L White Performed By: #### L 500.2500, L100.0100 #### [facility] [address] [place], [address] BUN/CRE Normal 10-20 [facility] Comment on above: Result Comment: This specimen has been REJECTED due to Laboratory criteria: Hemolyzed. ZOILA POWER has been notified of need of recollection. 10/24/24406 Seymour L White Performed By: #### L 500.2500, L100.0100 #### [facility] [address] [place], [address] Calcium Normal 7.6-11.0 [facility] Comment on above: Result Comment: This specimen has been REJECTED due to Laboratory criteria: Hemolyzed. ZOILA POWER has been notified of need of recollection. 10/24/24406 Seymour L White Performed By: #### L 500.2500, L100.0100 #### [facility] [address] [place], [address] CL Normal 98-108 [facility] Comment on above: Result Comment: This specimen has been REJECTED due to Laboratory criteria: Hemolyzed. ZOILA POWER has been notified of need of recollection. 10/24/24406 Seymour L White Performed By: #### L 500.2500, L100.0100 #### [facility] [address] [place], [address] CO2 Normal 21.0-32.0 [facility] Comment on above: Result Comment: This specimen has been REJECTED due to Laboratory criteria: Hemolyzed. ZOILA POWER has been notified of need of recollection. 10/24/24406 Seymour L White Performed By: #### L 500.2500, L100.0100 #### [facility] [address] [place], [address] CREAT,SERUM Normal 0.70-1.20 [facility] Comment on above: Result Comment: This specimen has been REJECTED due to Laboratory criteria: Hemolyzed. ZOILA POWER has been notified of need of recollection. 10/24/24406 Seymour L White Performed By: #### L 500.2500, L100.0100 #### [facility] [address] [place], [address] eGFR Normal >60 [facility] Comment on above: Result Comment: This specimen has been REJECTED due to Laboratory criteria: Hemolyzed. ZOILA POWER has been notified of need of recollection. 10/24/24406 Seymour L White Performed By: #### L 500.2500, L100.0100 #### [facility] [address] [place], [address] GAP Normal 5-15 [facility] Comment on above: Result Comment: This specimen has been REJECTED due to Laboratory criteria: Hemolyzed. ZOILA POWER has been notified of need of recollection. 10/24/24406 Seymour L White Performed By: #### L 500.2500, L100.0100 #### [facility] [address] [place], [address] GLU Normal 70-99 [facility] Comment on above: Result Comment: This specimen has been REJECTED due to Laboratory criteria: Hemolyzed. ZOILA POWER has been notified of need of recollection. 10/24/24406 Seymour L White Performed By: #### L 500.2500, L100.0100 #### [facility] [address] [place], [address] Potassium Normal 3.3-5.1 [facility] Comment on above: Result Comment: This specimen has been REJECTED due to Laboratory criteria: Hemolyzed. ZOILA POWER has been notified of need of recollection. 10/24/24406 Seymour Carter Performed By: #### L 500.2500, L100.0100 #### [facility] [address] [place], [address] Basic Metabolic Profile (BMP) Normal 133-145 [facility] Comment on above: Result Comment: This specimen has been REJECTED due to Laboratory criteria: Hemolyzed. ZOILA CURRYSADIE has been notified of need of recollection. 10/24/24406 Seymour Carter Performed By: #### L 500.2500, L100.0100 #### [facility] [address] [place], [address] Basophil percentageOrdered B y: Eriberto Ortiz on 10-24-2024 Basophils/100 WBC (Bld) 0.2 % 0-1 [facility] CBC W/Diff, Automatedon 10-15 0-2024 Absolute Lymph 1.16 X10 3/uL Normal 0.83-4.51 [facility] Comment on above: Performed By: #### L 500.2500, L100.0100 #### [facility] [address] [place], [address] Absolute Neut 9.1 X10 3/uL High 2.0-7.7 [facility] Comment on above: Performed By: #### L 500.2500, L100.0100 #### [facility] [address] [place], [address] Basophils/100 WBC (Bld) 0.2 % Normal 0-1 [facility] Comment on above: Performed By: #### L 500.2500, L100.0100 #### [facility] [address] [place], [address] Eosinophils/100 WBC (Bld) 0.0 % Normal 0-5 [facility] Comment on above: Performed By: #### L 500.2500, L100.0100 #### [facility] [address] [place], [address] Erythrocyte distribution width (RBC) [Ratio] 12.8 % Normal 11.6-14.6 [facility] Comment on above: Performed By: #### L 500.2500, L100.0100 #### [facility] [address] [place], [address] Hematocrit (Bld) [Volume fraction] 34.3 % Low 40-54 [facility] Comment on above: Performed By: #### L 500.2500, L100.0100 #### [facility] [address] [place], [address] Hemoglobin (Bld) [Mass/Vol] 11.8 g/dL Low 13.0-16.5 [facility] Comment on above: Performed By: #### L 500.2500, L100.0100 #### [facility] [address] [place], [address] IG% 0.500 Normal 0.0-0.9 [facility] Comment on above: Result Comment: IG% - Immature Granulocytes (promyelocytes, myelocytes and metamyelocytes) > 1% indicates that a LEFT SHIFT is Present. Performed By: #### L 500.2500, L100.0100 #### [facility] [address] [place], [address] Lymphocytes/100 WBC (Bld) 10.4 % Low 19-41 [facility] Comment on above: Performed By: #### L 500.2500, L100.0100 #### [facility] [address] [place], [address] MCH (RBC) [Entitic mass] 31.4 pg Normal 27.0-32.0 [facility] Comment on above: Performed By: #### L 500.2500, L100.0100 #### [facility] [address] [place], [address] MCHC (RBC) [Mass/Vol] 34.4 g/dL Normal 32-[address] [facility] Comment on above: Performed By: #### L 500.2500, L100.0100 #### [facility] [address] [place], [address] MCV (RBC) [Entitic vol] 91.2 fL Normal 80-94 [facility] Comment on above: Performed By: #### L 500.2500, L100.0100 #### [facility] [address] [place], [address] Monocytes/100 WBC (Bld) 7.5 % Normal 0-10 [facility] Comment on above: Performed By: #### L 500.2500, L100.0100 #### [facility] [address] [place], [address] Neutrophils/100 WBC (Bld) 81.4 % High 47-70 [facility] Comment on above: Performed By: #### L 500.2500, L100.0100 #### [facility] [address] [place], [address] Nucleated RBC (Bld) [#/Vol] 0 10*3/uL Normal 0-5 [facility] Comment on above: Performed By: #### L 500.2500, L100.0100 #### [facility] [address] [place], [address] Platelet mean volume (Bld) [Entitic vol] 10.6 fL Normal 6.2-12.0 [facility] Comment on above: Performed By: #### L 500.2500, L100.0100 #### [facility] [address] [place], [address] Platelets (Bld) [#/Vol] 190 10*3/uL Normal 150-450 [facility] Comment on above: Performed By: #### L 500.2500, L100.0100 #### [facility] [address] [place], [address] RBC (Bld) [#/Vol] 3.76 10*6/uL Low 4.6-6.2 [facility] Comment on above: Performed By: #### L 500.2500, L100.0100 #### [facility] [address] [place], [address] RDW SD 41.9 fl Normal 35.1-43.9 [facility] Comment on above: Performed By: #### L 500.2500, L100.0100 #### [facility] [address] [place], [address] WBC (Bld) [#/Vol] 11.1 10*3/uL High 4.4-11.0 [facility] Comment on above: Performed By: #### L 500.2500, L100.0100 #### [facility] [address] [place], [address] Carbon dioxide, total [Moles /volume] in Central venous bloodOrdered By: Eriberto Ortiz on 10-24-2024 CO2 [Moles/Vol] 22.3 mmol/L 21.0-32.0 [facility] Chloride assayOrdered By: Wood Ortiz on 10-24-2024 Chloride [Moles/Vol] 104 mmol/L 98-108 [facility] Eosinophil percentageOrdered By: Eriberto Ortiz on 10-24-2024 Eosinophils/100 WBC (Bld) 0.0 % 0-5 [facility] Erythrocyte distribution wid th ratioOrdered By: Eriberto Ortiz on 10-24-2024 Erythrocyte distribution width (RBC) [Ratio] 12.8 % 11.6-14.6 [facility] Erythrocyte distribution wid th standard deviationOrdered By: Eriberto Ortiz on 10-24-2024 Erythrocyte distribution width (RBC) [Ratio] 41.9 fl 35.1-43.9 [facility] Glomerular filtration rate ( GFR) estimation/1.73 sq m using serum, plasma, or whole bOrdered By: Eriberto Ortiz on 10-24-2024 GFR/1.73 sq M.predicted among non-blacks MDRD (S/P/Bld) [Vol rate/Area] 79 mL/min/{1.73_m2} >60 [facility] Comment on above: mL/min/1.73m2 CKD-EP I Creatinine Equation (2020) Hematocrit Auto (Bld) [Volum e fraction]Ordered By: Eriberto Ortiz on 10-24-2024 Hematocrit (Bld) [Volume fraction] 34.3 % Low 40-54 [facility] Hemoglobin measurementOrdere d By: Eriberto Ortiz on 10-24-2024 Hemoglobin (Bld) [Mass/Vol] 11.8 g/dL Low 13.0-16.5 [facility] Immature granulocytes/100 WB C Auto (Bld)Ordered By: Eriberto Ortiz on 10-24-2024 Immature granulocytes/100 WBC (Bld) 0.500 % 0.0-0.9 [facility] Comment on above: IG% - Immature Granu locytes (promyelocytes, myelocytes and metamyelocytes) > 1% indicates that a LEFT SHIFT is Present. MCV (mean corpuscular volume ) determinationOrdered By: Eriberto Ortiz on 10-24-2024 MCV (RBC) [Entitic vol] 91.2 fL 80-94 [facility] Mean corpuscular hemoglobin (MCH) determinationOrdered By: Eriberto Ortiz on 10-24-2024 MCH (RBC) [Entitic mass] 31.4 pg 27.0-32.0 [facility] Mean corpuscular hemoglobin concentration (MCHC) determinationOrdered By: Eriberto Ortiz 10-24-2024 MCHC (RBC) [Mass/Vol] 34.4 g/dL 32-[address] [facility] Mean platelet volume determi nationOrdered By: Eriberto Ortiz 10-24-2024 Platelet mean volume (Bld) [Entitic vol] 10.6 fL 6.2-12.0 [facility] Monocyte percentageOrdered B y: Eribertoorlando Ortiz on 10-24-2024 Monocytes/100 WBC (Bld) 7.5 % 0-10 [facility] Neutrophil percentageOrdered By: Eribertoorlando Ortiz on 10-24-2024 Neutrophils/100 WBC (Bld) 81.4 % High 47-70 [facility] Nucleated red blood cell per centageOrdered By: Eribertoorlando Ortiz on 10-24-2024 Nucleated RBC/100 WBC (Bld) [Ratio] 0 % 0-5 [facility] Platelet countOrdered By: Wood orlando Ortiz on 10-24-2024 Platelets (Bld) [#/Vol] 190 10*3/uL 150-450 [facility] Potassium measurement (mass/ volume)Ordered By: Eriberto Ortiz on 10-24-2024 Potassium (Unsp spec) [Mass/Vol] 4.7 mmol/L 3.3-5.1 [facility] Comment on above: Hemolysis present, R esults could be affected. RBC Auto (Bld) [#/Vol]Ordere d By: Eriberto Ortiz on 10-24-2024 RBC (Bld) [#/Vol] 3.76 10*6/uL Low 4.6-6.2 [facility] Serum creatinine measurement (mass/volume)Ordered By: Eriberto Ortiz on 10-24-2024 Creatinine [Mass/Vol] 0.93 mg/dL 0.70-1.[address] [facility] Serum glucose measurement (m ass/volume)Ordered By: Eriberto Ortiz on 10-24-2024 Glucose [Mass/Vol] 129 mg/dL High 70-99 [facility] Serum or plasma calcium yasmeen urement (mass/volume)Ordered By: Eriberto Ortiz on 10-24-2024 Calcium [Mass/Vol] 7.9 mg/dL 7.6-11.0 [facility] Serum or plasma urea nitroge n measurement (mass/volume)Ordered By: Eriberto Ortiz on 10-24-2024 Urea nitrogen [Mass/Vol] 18 mg/dL 4-19 [facility] Sodium levelOrdered By: Eriberto Ortiz on 10-24-2024 Sodium [Moles/Vol] 137 mmol/L 133-145 [facility] White blood cell (WBC) count Ordered By: Eriberto Ortiz on 10-24-2024 WBC (Bld) [#/Vol] 11.1 10*3/uL High 4.4-11.0 [facility] MR/POSTOP.ANEon 10-23-2024 MR/POSTOP.ANE [facility] Medical Records Department [address] [place] [address] Anesthesia Postop Eval I 10/23/24 1554 MR#: [id number] Acct: [id number] Name: VICK ROMAN Rep #: [id number] : 1935 89 From: Edmund Hyatt CRNA PCP: Dr. Stanley Kaiser MD Status:ADM IN Y Race: C Location: ICU ICU Anesthesia: Postop Eval I Current Vital Signs [...] Anesthesia document: Postop Eval 1 completed: Yes 10/23/241554 Date Edmund Hyatt PORTRAIT ARTIST Cosigner Signature: Date CC: Signed Normal [facility] MR/LTTMDQWC4kd 10-23-2024 [facility] Medical Records Department [address] [place] [place] [address] Anesthesia Postop Eval II 10/23/24 1634 MR#: [id number] Acct: [id number] Name: VICK ROMAN Rep #: [id number] : 1935 89 From: Elkin Larson MD PCP: Dr. Stanley Kaiser MD Status:ADM IN Y Race: C Location: ICU ICU05 Anesthesia Postop Eval I Sum Postop Eval Completion status Anesthesia document: Postop Eval 1 completed: Yes Anesthesia Postop Eval I Summary Anesthesia Postop Eval I Summary: Anesthesia Postop Eval I: Assessment Summary Airway patent Yes 10/23/24 15:55 PORTRAIT ARTIST.APAT Spontaneous unlabored Yes 10/23/24 15:55 PORTRAIT ARTIST.APAT respirations Mental status Awake,Confused 10/23/24 15:55 PORTRAIT ARTIST.APAT nausea No 10/23/24 15:55 PORTRAIT ARTIST.APAT Vomiting No 10/23/24 15:55 PORTRAIT ARTIST.APAT Anesthesia Postop Eval I: Fluid Summary Crystalloid volume administer 1,200 10/23/24 15:55 PORTRAIT ARTIST.APAT (ml) Colloids volume administered ( ml) Blood Product volume administered (ml) Total IV fluid infused 1,200 10/23/24 15:55 PORTRAIT ARTIST.APAT Anesthesia Postop Eval I: Summary Notes Anesthesia Complication No 10/23/24 15:55 PORTRAIT ARTIST.APAT Anesthesia Complication Comment: Post-operative progress note Anesthesia: Postop Eval II Evaluation Mental status: Awake Pain Level: 0 nausea: No Vomiting: No 10/23/24 1634 Date Elkin Larson [facility] Signature: Date CC: Signed Normal [facility] Operative Reporton 5 Operative Report [facility] Medical Records Department [address] [place] [address] Operative Report 10/23/24 1646 MR#: [id number] Acct: [id number] Name: VICK ROMAN Rep #: [id number] : 1935 89 From: Eriberto Ortiz MD PCP: Dr. Stanley Kaiser MD Status:ADM IN Location: ICU ICU05- Operative Report (Standard) Operative Information Date of Procedure: 10/23/24 Pre-Operative Diagnosis: Infrarenal abdominal aortic aneurysm Post-Operative Diagnosis: Same Surgery/Procedure Performed: Endovascular repair of abdominal aortic aneurysm with percutaneous access Placement Palmaz balloon expandable stent reinforcing the proximal landing zone reheater helper: Yes Ostrich Farmer: Ralph Monteiro Tasks completed by banking assistant: Opening, Closing, Opening closing and Implanting [...] site the patient was taken to the [facility] where he was placed under general anesthesia. [...] or dissection. Through the micropuncture sheath a Infobionics wire was advanced and the micropuncture sheath exchanged for short 6 Greek sheath dilate the tract. This sheath was then withdrawn and a pair of Pro-glide suture mediated closure devices were deployed in preclose technique. After suture device deployment an 8 Greek sheath was advanced over the wire and [...] the micropuncture sheath exchanged for short 6 Greek sheath. There is significant amount of tortuosity in the iliac artery and the Bentson wire would not navigate into the aorta so a KMP catheter was advanced through the 6 Greek sheath and the Bentson wire exchanged for an angled Glidewire which was advanced into the abdominal aorta. The catheter was then advanced and the wire withdrawn and a Bentson wire advanced after which the catheter and short 6 Greek sheath were withdrawn and a pair of Pro-glide suture mediated closure devices were deployed in preclose technique. Once the devices were deployed an 8 Greek sheath was advanced into the ipsilateral proximal [...] L2 vertebral body. The right femoral 8 Greek sheath was then withdrawn and the Endologix Gaston 29 mm main body was advanced into [...] via t (more content not included)... Normal [facility] Basic Metabolic Profile (BMP )on 10-10-2024 BUN/CRE 25.9 RATIO High 10- [facility] Comment on above: Performed By: #### L 500.2500 #### [facility] [address] [place], [address] Calcium [Mass/Vol] 9.2 mg/dL Normal 7.6-11.0 [facility] Comment on above: Performed By: #### L 500.2500 #### [facility] [address] [place], [address] Chloride [Moles/Vol] 103 mmol/L Normal 98-108 [facility] Comment on above: Performed By: #### L 500.2500 #### [facility] [address] [place], [address] CO2 [Moles/Vol] 24.6 mmol/L Normal 21.0-32.0 [facility] Comment on above: Performed By: #### L 500.2500 #### [facility] [address] [place], [address] Creatinine [Mass/Vol] 0.95 mg/dL Normal 0.70-1.[address] [facility] Comment on above: Performed By: #### L 500.2500 #### [facility] [address] [place], [address] GAP 12 Normal 5-15 [facility] Comment on above: Performed By: #### L 500.2500 #### [facility] [address] [place], [address] GFR/1.73 sq M.predicted among non-blacks MDRD (S/P/Bld) [Vol rate/Area] 77 mL/min/{1.73_m2} Normal >60 [facility] Comment on above: Result Comment: mL/m in/1.73m2 CKD-EPI Creatinine Equation (2020) Performed By: #### L 500.2500 #### [facility] [address] [place], [address] Glucose [Mass/Vol] 105 mg/dL High 70-99 [facility] Comment on above: Performed By: #### L 500.2500 #### [facility] [address] [place], [address] Potassium [Moles/Vol] 3.8 mmol/L Normal 3.3-5.[address] [facility] Comment on above: Performed By: #### L 500.2500 #### [facility] [address] [place], [address] Sodium [Moles/Vol] 139 mmol/L Normal 133-145 [facility] Comment on above: Performed By: #### L 500.2500 #### [facility] [address] [place], [address] Urea nitrogen [Mass/Vol] 25 mg/dL High 4-19 [facility] Comment on above: Performed By: #### L 500.2500 #### [facility] [address] [place], [address] Magnesiumon 10-10-2024 Magnesium [Mass/Vol] 1.8 mg/dL Normal 1.5-2.2 [facility] Comment on above: Performed By: #### L 501.5200, L501.2300 ####[facility] [address] [place], [address] Magnesium measurement (mass/ volume)Ordered By: Elkin Larson on 10-10-2024 Magnesium (Unsp spec) [Mass/Vol] 1.8 mg/dL 1.5-2.2 [facility] Phosphoruson 10-10-2024 Phosphate [Mass/Vol] 2.7 mg/dL Normal 2.7-4.5 [facility] Comment on above: Performed By: #### L 501.5200, L501.2300 ####[facility] [address] [place], [address] Type AND Screen - PAT ONLYon 10-10-2024 ABO and Rh group Nom (Bld) Blood group O Rh(D) positive Normal [facility] Comment on above: Order Comment: Surge ry Date: 10/23/24Reason for Laboratory Test [id number] AAA Performed By: #### B TSPAT ####[facility] [address] [place], [address] MR/PAT.ANEon 10-06-2024 MR/PAT.TYLER [facility] Medical Records Department [address] [place] [address] PAT - Anesthesia 10/06/24 1011 MR#: [id number] Acct: [id number] Name: VICK ROMAN Rep #: [id number] : 1935 89 From: Elkin Larson MD PCP: Dr. Stanley Kaiser MD Status:PRE IN Y Race: C Location: [facility] Pre-Assessment Diagnosis/Proposed Procedure Planned Operative Procedure(s): ENDOVASCULAR REPAIR AAA Anesthesia History Anesthesia History - yard attendant: Anesthesia History - yard attendant Hx Hospitalization No 10/06/24 09:07 Any Problems [...] take am of surgery PONV PONV - yard attendant: PONV - yard attendant Female No 10/06/24 09:07 HX of Motion [...] 09/17/24 06:12 Respiratory Assessment Respiratory Assessment - yard attendant: Respiratory Tract Infection Hx - yard attendant Hx Respiratory Tract Infection No 10/06/24 09:07 STOP Sleep Apnea STOP Sleep Apnea - yard attendant: STOP Sleep Apnea - yard attendant Hx Hypertension Yes: JUST STARTED BP MED [...] Tobacco Use History Tobacco Use History - yard attendant: Tobacco Use History - yard attendant Tobacco Use Smoking Status Heavy Smoker (>10/day) 10/06/24 09:07 Hx Tobacco Use Yes 10/06/24 09:07 Years Smoking Packs Smoked per Day Smoking Cessation Date was within the last 15 years Hx Smoking Cessation Date Hx Smoking Cessation Counseling Hematologic Medial History Hematologic Hx - yard attendant: Hematologic Medical Hx - hospital internship Hx of Blood Transfusion No 10/06/24 09:07 [...] confused, unrespo /Reproduction History /Reproductive History - yard attendant: /Reproductive Hx- yard attendant Hx Now No 10/06/24 09:07 Gestational Age (in weeks): EDC: Hx Hx Para Hx Section SAB No 10/06/24 09:07 PFS Medical History (Updated 10/06/24 @ 09:26 by [...] 31 Cancer (more content not included)... Normal [facility] 12 Lead EKG performed by [facility] on 09-26-2024 12 Lead EKG performed by [place] [address] [place] [address] 12 Lead EKG performed by [facility] 09/26/241534 MR#: [id number] Acct: [id number] Name: VICK ROMAN Rep #: [id number] : 1935 89 From: Brayan Breaux MD Attending Dr: Dr. Brayan Breaux MD Status: DE P AMB Ordering Dr: Brayan Breaux MD Date: 09/26/24 Location: [facility] Sex: M C Admitted: [facility]/12 Lead EKG performed by [facility] ECG Report Interpretation ----Sinus Rhythm -Right bundle branch block with left axis -bifascicular block. -Left atrial enlargement. ABNORMAL Electronically signed on 09/26/2024 at 14:[address] Brayan Breaux [employer] Version 8610 09/26/24 1456 Date Brayan Breaux MD CC: Dr. Stanley Kaiser MD Date Dictated: 09/26/241534 Date Transcribed: 09/26/241534 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: Signed Normal [facility] Cardiology Visit Reporton Cardiology Visit Report [facility] [address] [place] [address] OFFICE VISIT Date of Service: 09/26/24 MR#: [id number] Acct: [id number] Name: VICK ROMAN Rep #: [id number] : 1935 Provider: Dr. Brayan goss MD Age/Sex: 89/M Location: [facility] Status: Signed HPI HPI History of Present [...] air Intake Visit Reasons: Surgical Clearance (Diana) District Ranger Required: No Accompanied by: Self Is patient [...] Assessment and (more content not included)... Normal [facility] 09-18-2024 [facility] Telephone (HEMAWS) JESSIEVICK Zelaya ([id number]) 1935 M Date Time Provider Department 09/18/24 TOMAS FONTENOT During your visit today, we recorded the following information about you: Tomas Fontenot DO 09/18/2024 5:04 PM Signed Can let him [...] Status:Closed by BRITTA HERNANDEZ on 09/19/24 Normal [facility] Comprehensive metabolic 2000 panelon 09-18-2024 Albumin [Mass/Vol] 4.3 g/dL Normal 3.9-4.9 [facility] Comment on above: Order Comment: Speci men Type: BLOOD SPECIMENOrdering Facility: [facility] Address: [address] [place] [address] Performed By: #### 2 4323-8, DBIL ####[facility]ENTERLIA [id number] [place] [address] [place] ALP [Catalytic activity/Vol] 90 U/L Normal 38-113 [facility] Comment on above: Order Comment: Speci men Type: BLOOD SPECIMENOrdering Facility: [facility] Address: [address] [place] [address] Performed By: #### 2 4323-8, DBIL ####[facility]ITALWNCLIA [id number] [place] [address] [place] ALT [Catalytic activity/Vol] 20 U/L Normal 10-54 [facility] Comment on above: Order Comment: Speci men Type: BLOOD SPECIMENOrdering Facility: [facility] Address: [address] [place] [address] Performed By: #### 2 4323-8, DBIL ####[facility]ENTERLIA [id number] [place] [address] [place] Anion gap [Moles/Vol] 9 mmol/L Normal 8-15 [facility] Comment on above: Order Comment: Speci men Type: BLOOD SPECIMENOrdering Facility: [facility] Address: [address] [place] [address] Performed By: #### 2 4323-8, DBIL ####[facility]ITALWNCLIA [id number] [place] [address] [place] AST [Catalytic activity/Vol] 20 U/L Normal 14-40 [facility] Comment on above: Order Comment: Speci men Type: BLOOD SPECIMENOrdering Facility: [facility] Address: [address] [place] [address] Performed By: #### 2 4323-8, DBIL ####[facility] BABIESADAMLIA [id number] [place] [address] [place] Bilirubin [Mass/Vol] 1.1 mg/dL Normal 0.2-1.3 [facility] Comment on above: Order Comment: Speci men Type: BLOOD SPECIMENOrdering Facility: [facility] Address: [address] [place] [address] Performed By: #### 2 4323-8, DBIL ####[facility]ENTERLIA [id number] [place] [address] [place] Calcium [Mass/Vol] 9.6 mg/dL Normal 8.5-10.2 [facility] Comment on above: Order Comment: Speci men Type: BLOOD SPECIMENOrdering Facility: [facility] Address: [address] [place] [address] Performed By: #### 2 4323-8, DBIL ####[facility] BABIESNCLIA [id number] [place] [address] [place] Chloride [Moles/Vol] 102 mmol/L Normal 98-107 [facility] Comment on above: Order Comment: Speci men Type: BLOOD SPECIMENOrdering Facility: [facility] Address: [address] [place] [address] Performed By: #### 2 4323-8, DBIL ####[facility] FIDENCIO [id number] [place] [address] [place] CO2 [Moles/Vol] 28 mmol/L Normal 22-30 [facility] Comment on above: Order Comment: Speci men Type: BLOOD SPECIMENOrdering Facility: [facility] Address: [address] [place] [address] Performed By: #### 2 4323-8, DBIL ####[facility]OM[facility] & BABIESVIKTORIYA [id number] [address] [place] Creatinine [Mass/Vol] 1.07 mg/dL Normal 0.73-1.22 [facility] Comment on above: Order Comment: Speci men Type: BLOOD SPECIMENOrdering Facility: [facility] Address: [address] [place] [address] Performed By: #### 2 4323-8, DBIL ####[facility] WOM[facility] & BABIESVIKTORIYA [id number] [address] Creatinine and Glomerular filtration rate.predicted panel (S/P/Bld) 67 mL/min/1.73m??? Normal >=60 [facility] Comment on above: Order Comment: Speci men Type: BLOOD SPECIMENOrdering Facility: [facility] Address: [address] [place] [address] Result Comment: Renate mated Glomerular Filtration Rate [...] GFR. Performed By: #### 2 4323-8, DBIL ####[facility] [id number] [place] [address] [place] Glucose [Mass/Vol] 109 mg/dL High 74-99 [facility] Comment on above: Order Comment: Speci men Type: BLOOD SPECIMENOrdering Facility: [facility] Address: [address] [place], [place] [address] Result Comment: The [place] [employer] (ADA) provides guidance for cutoff [...] Standards of Medical Care in Diabetes 2016, [place] [employer]. Diabetes Care. 2016.39(Suppl 1). Performed By: #### 2 4323-8, DBIL ####[facility] [id number] [place] [address] [place] Potassium [Moles/Vol] 3.6 mmol/L Low 3.7-5.1 [facility] Comment on above: Order Comment: Speci men Type: BLOOD SPECIMENOrdering Facility: [facility] Address: [address] [place] [address] Performed By: #### 2 4323-8, DBIL ####[facility] [id number] [place] [address] [place] Protein [Mass/Vol] 7.3 g/dL Normal 6.3-8.0 [facility] Comment on above: Order Comment: Speci men Type: BLOOD SPECIMENOrdering Facility: [facility] Address: [address] [place] [address] Performed By: #### 2 4323-8, DBIL ####[facility] BABIESNCLIA [id number] [place] [address] [place] Sodium [Moles/Vol] 139 mmol/L Normal 136-144 [facility] Comment on above: Order Comment: Speci men Type: BLOOD SPECIMENOrdering Facility: [facility] Address: [address] [place] [address] Performed By: #### 2 4323-8, DBIL ####[facility] [id number] [place] [address] [place] Urea nitrogen [Mass/Vol] 21 mg/dL Normal 9-24 [facility] Comment on above: Order Comment: Speci men Type: BLOOD SPECIMENOrdering Facility: [facility] Address: [address] [place] [address] Performed By: #### 2 4323-8, DBIL ####[facility] [id number] [place] [address] [place] DIRECT BILIRUBIN BLOODon Bilirubin.conjugated [Mass/Vol] 0.4 mg/dL High <0.3 [facility] Comment on above: Order Comment: Speci men Type: BLOOD SPECIMENOrdering Facility: [facility] Address: [address] [place] [address] Performed By: #### 2 4323-8, DBIL ####[facility] HOSPITALA [id number] [place] [address] [place] MR/BMS.Tash 09-18-2024 [facility] [address] [place] [address] OFFICE VISIT Date of Service: 09/18/24 MR#: [id number] Acct: [id number] Name: VICK ROMAN Rep #: [id number] : 1935 Provider: Dr. Eriberto Ortiz MD Age/Sex: 89/M Location: [facility] Status: Signed Intake Vital Signs 10/02/22 10:18 [...] nourished Orientation: alert, awake and oriented x3 [facility] Head: normocephalic and atraumatic Ears: hearing grossly [...] Cardio R (more content not included)... Normal [facility] Absolute lymphocyte countOrd ered By: Juan M Mendez on 09-17-2024 Lymphocytes Auto (Unsp spec) [#/Vol] 2.08 10*3/uL 0.83-4.51 [facility] Absolute neutrophil countOrd ered By: [facility] CenterMarilia on 09-17-2024 Neutrophils (Bld) [#/Vol] 4.3 10*3/uL 2.0-7.7 [facility] Anion gap in Serum or Plasma Ordered By: [facility] CenterMarilia on 09-17-2024 Anion gap [Moles/Vol] 10 mmol/L 5-[address] [facility] Automated lymphocyte count a s percentage of total leukocytesOrdered By: [place] Andrea on 09-17-2024 Lymphocytes/100 WBC Auto (Unsp spec) 27.6 % 19-41 [facility] BUN/creatinine ratioOrdered By: [facility] CentercatherineValentino on 09-17-2024 Urea nitrogen/Creatinine [Mass ratio] 18.6 mg/mg 10-20 [facility] Basophil percentageOrdered B y: Juan M Mendez on 09-17-2024 Basophils/100 WBC (Bld) 1.1 % High 0-1 [facility] Bilirubin Test strip Ql (U)O rdered By: Juan Mmiles Mendez on 09-17-2024 Bilirubin Ql (U) Negative Negative [facility] Bilirubin, totalOrdered By: [facility] CenterMarilia on 09-17-2024 Bilirubin [Mass/Vol] 0.88 mg/dL 0.00-1.30 [facility] CBC W/Diff, Automatedon Absolute Lymph 2.08 X10 3/uL Normal 0.83-4.51 [facility] Comment on above: Performed By: #### L 100.0100, L501.2450, L503.6005, L500.4050, L501.4021 ####[facility] [address] [place], [address] Absolute Neut 4.3 X10 3/uL Normal 2.0-7.7 [facility] Comment on above: Performed By: #### L 100.0100, L501.2450, L503.6005, L500.4050, L501.4021 ####[facility] [address] [place], [address] Basophils/100 WBC (Bld) 1.1 % High 0-1 [facility] Comment on above: Performed By: #### L 100.0100, L501.2450, L503.6005, L500.4050, L501.4021 ####[facility] [address] [place], [address] Eosinophils/100 WBC (Bld) 3.3 % Normal 0-5 [facility] Comment on above: Performed By: #### L 100.0100, L501.2450, L503.6005, L500.4050, L501.4021 ####[facility] [address] [place], [address] Erythrocyte distribution width (RBC) [Ratio] 12.8 % Normal 11.6-14.6 [facility] Comment on above: Performed By: #### L 100.0100, L501.2450, L503.6005, L500.4050, L501.4021 ####[facility] [address] [place], [address] Hematocrit (Bld) [Volume fraction] 43.9 % Normal 40-54 [facility] Comment on above: Performed By: #### L 100.0100, L501.2450, L503.6005, L500.4050, L501.4021 ####[facility] [address] [place], [address] Hemoglobin (Bld) [Mass/Vol] 15.0 g/dL Normal 13.0-16.5 [facility] Comment on above: Performed By: #### L 100.0100, L501.2450, L503.6005, L500.4050, L501.4021 ####[facility] [address] [place], [address] IG% 0.400 Normal 0.0-0.9 [facility] Comment on above: Result Comment: IG% - Immature Granulocytes (promyelocytes, myelocytes and metamyelocytes) > 1% indicates that a LEFT SHIFT is Present. Performed By: #### L 100.0100, L501.2450, L503.6005, L500.4050, L501.4021 ####[facility] [address] [place], [address] Lymphocytes/100 WBC (Bld) 27.6 % Normal 19-41 [facility] Comment on above: Performed By: #### L 100.0100, L501.2450, L503.6005, L500.4050, L501.4021 ####[facility] [address] [place], [address] MCH (RBC) [Entitic mass] 30.9 pg Normal 27.0-32.0 [facility] Comment on above: Performed By: #### L 100.0100, L501.2450, L503.6005, L500.4050, L501.4021 ####[facility] [address] [place], [address] MCHC (RBC) [Mass/Vol] 34.2 g/dL Normal 32-[address] [facility] Comment on above: Performed By: #### L 100.0100, L501.2450, L503.6005, L500.4050, L501.4021 ####[facility] [address] [place], [address] MCV (RBC) [Entitic vol] 90.3 fL Normal 80-94 [facility] Comment on above: Performed By: #### L 100.0100, L501.2450, L503.6005, L500.4050, L501.4021 ####[facility] [address] [place], [address] Monocytes/100 WBC (Bld) 10.7 % High 0-10 [facility] Comment on above: Performed By: #### L 100.0100, L501.2450, L503.6005, L500.4050, L501.4021 ####[facility] [address] [place], [address] Neutrophils/100 WBC (Bld) 56.9 % Normal 47-70 [facility] Comment on above: Performed By: #### L 100.0100, L501.2450, L503.6005, L500.4050, L501.4021 ####[facility] [address] [place], [address] Nucleated RBC (Bld) [#/Vol] 0 10*3/uL Normal 0-5 [facility] Comment on above: Performed By: #### L 100.0100, L501.2450, L503.6005, L500.4050, L501.4021 ####[facility] [address] [place], [address] Platelet mean volume (Bld) [Entitic vol] 10.0 fL Normal 6.2-12.0 [facility] Comment on above: Performed By: #### L 100.0100, L501.2450, L503.6005, L500.4050, L501.4021 ####[facility] [address] [place], [address] Platelets (Bld) [#/Vol] 229 10*3/uL Normal 150-450 [facility] Comment on above: Performed By: #### L 100.0100, L501.2450, L503.6005, L500.4050, L501.4021 ####[facility] [address] [place], [address] RBC (Bld) [#/Vol] 4.86 10*6/uL Normal 4.6-6.2 [facility] Comment on above: Performed By: #### L 100.0100, L501.2450, L503.6005, L500.4050, L501.4021 ####[facility] [address] [place], [address] RDW SD 42.4 fl Normal 35.1-43.9 [facility] Comment on above: Performed By: #### L 100.0100, L501.2450, L503.6005, L500.4050, L501.4021 ####[facility] [address] [place], [address] WBC (Bld) [#/Vol] 7.5 10*3/uL Normal 4.4-11.0 [facility] Comment on above: Performed By: #### L 100.0100, L501.2450, L503.6005, L500.4050, L501.4021 ####[facility] [address] [place], [address] CNPLyndsay 09-17-2024 [facility] Telephone (HEMAWS) VICK ROMAN ([id number]) 1935 M Date Time Provider Department 09/17/24 [...] [R17] Order(s):COMPREHENSIVE METABOLIC PANEL [SQCMP] Order #: [id number] FUTURE DIRECT BILIRUBIN BLOOD [SQDBIL] Order #: [id number] FUTURE Prescriptions as of 09/17/2024 - atorvastatin [...] Status:Closed by SHAWNA DICKEY on 09/17/24 Normal [facility] CTA Abd/Pelvis W/WO Contrast on 09-17-2024 CTA Abd/Pelvis W/WO Contrast [facility] Imaging Services [address] [place] [address] CTA Abd/Pelvis W/WO Contrast MR#: [id number] Acct: [id number] Name: VICK ROMAN Rep #: [id number] : 1935 M 89 From: Brayan Nielsen i, MD PCP: Dr. Stanley Kaiser MD Status: REG ER Study: CTA Abd/Pelvis W/WO Contrast Date of Exam: 09/08 Exam# [id number] Ordering Dr: Juan M Mendez DO PROCEDURE: [...] changes seen within the lower lung zones, rfgfv-oibaidw-zhul-lef t. This may suggest chronic lung disease. [...] bases. Other findings as above. Reading Location: [id number] CC: Dr. Juan M Mendez, DO; Dr. Stanley Kaiser MD 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: Signed Normal [facility] Carbon dioxide, total [Moles /volume] in Central venous bloodOrdered By: Juan M Mendez on 09-17-2024 CO2 [Moles/Vol] 25.4 mmol/L 21.0-32.0 [facility] Chloride assayOrdered By: Americo Mendez on 09-17-2024 Chloride [Moles/Vol] 103 mmol/L 98-108 [facility] Comprehensive Metabolic Prof ilon 09-17-2024 Albumin [Mass/Vol] 4.2 g/dL Normal 3.4-4.8 [facility] Comment on above: Performed By: #### L 100.0100, L501.2450, L503.6005, L500.4050, L501.4021 ####[facility] [address] [place], [address] Albumin/Globulin [Mass ratio] 1.4 {ratio} Normal 0.9-2.4 [facility] Comment on above: Performed By: #### L 100.0100, L501.2450, L503.6005, L500.4050, L501.4021 ####[facility] [address] [place], [address] ALK PHOS 95 U/L Normal 40-129 [facility] Comment on above: Performed By: #### L 100.0100, L501.2450, L503.6005, L500.4050, L501.4021 ####[facility] [address] [place], [address] ALT [Catalytic activity/Vol] 23 U/L Normal <=46 [facility] Comment on above: Performed By: #### L 100.0100, L501.2450, L503.6005, L500.4050, L501.4021 ####[facility] [address] [place], [address] AST [Catalytic activity/Vol] 27 U/L Normal <=37 [facility] Comment on above: Performed By: #### L 100.0100, L501.2450, L503.6005, L500.4050, L501.4021 ####[facility] [address] [place], [address] Bilirubin [Mass/Vol] 0.88 mg/dL Normal 0.00-1.30 [facility] Comment on above: Performed By: #### L 100.0100, L501.2450, L503.6005, L500.4050, L501.4021 ####[facility] [address] [place], [address] BUN/CRE 18.6 RATIO Normal 10-20 [facility] Comment on above: Performed By: #### L 100.0100, L501.2450, L503.6005, L500.4050, L501.4021 ####[facility] [address] [place], [address] Calcium [Mass/Vol] 9.5 mg/dL Normal 7.6-11.0 [facility] Comment on above: Performed By: #### L 100.0100, L501.2450, L503.6005, L500.4050, L501.4021 ####[facility] [address] [place], [address] Chloride [Moles/Vol] 103 mmol/L Normal 98-108 [facility] Comment on above: Performed By: #### L 100.0100, L501.2450, L503.6005, L500.4050, L501.4021 ####[facility] [address] [place], [address] CO2 [Moles/Vol] 25.4 mmol/L Normal 21.0-32.0 [facility] Comment on above: Performed By: #### L 100.0100, L501.2450, L503.6005, L500.4050, L501.4021 ####[facility] [address] [place], [address] Creatinine [Mass/Vol] 0.99 mg/dL Normal 0.70-1.[address] [facility] Comment on above: Performed By: #### L 100.0100, L501.2450, L503.6005, L500.4050, L501.4021 ####[facility] [address] [place], [address] ECRCL 42.46 ml/min Low 50-250 [facility] Comment on above: Performed By: #### L 100.0100, L501.2450, L503.6005, L500.4050, L501.4021 ####[facility] [address] [place], [address] GAP 10 Normal 5-15 [facility] Comment on above: Performed By: #### L 100.0100, L501.2450, L503.6005, L500.4050, L501.4021 ####[facility] [address] [place], [address] GFR/1.73 sq M.predicted among non-blacks MDRD (S/P/Bld) [Vol rate/Area] 73 mL/min/{1.73_m2} Normal >60 [facility] Comment on above: Result Comment: mL/m in/1.73m2 CKD-EPI Creatinine Equation (2020) Performed By: #### L 100.0100, L501.2450, L503.6005, L500.4050, L501.4021 ####[facility] [address] [place], [address] Globulin (S) [Mass/Vol] 3.1 g/dL Normal 2.2-4.2 [facility] Comment on above: Performed By: #### L 100.0100, L501.2450, L503.6005, L500.4050, L501.4021 ####[facility] [address] [place], [address] Glucose [Mass/Vol] 96 mg/dL Normal 70-99 [facility] Comment on above: Performed By: #### L 100.0100, L501.2450, L503.6005, L500.4050, L501.4021 ####[facility] [address] [place], [address] Potassium [Moles/Vol] 3.9 mmol/L Normal 3.3-5.[address] [facility] Comment on above: Performed By: #### L 100.0100, L501.2450, L503.6005, L500.4050, L501.4021 ####[facility] [address] [place], [address] Sodium [Moles/Vol] 139 mmol/L Normal 133-145 [facility] Comment on above: Performed By: #### L 100.0100, L501.2450, L503.6005, L500.4050, L501.4021 ####[facility] [address] [place], [address] T PROT 7.3 g/dL Normal 5.9-8.4 [facility] Comment on above: Performed By: #### L 100.0100, L501.2450, L503.6005, L500.4050, L501.4021 ####[facility] [address] [place], [address] Urea nitrogen [Mass/Vol] 19 mg/dL Normal 4-19 [facility] Comment on above: Performed By: #### L 100.0100, L501.2450, L503.6005, L500.4050, L501.4021 ####[facility] [address] [place], [address] Emergency Department Summary on 09-17-2024 Emergency Department Summary [facility] Medical Records Department [address] [place] [address] Emergency Department Summary 09/17/24 MR#: [id number] Acct: [id number] Name: VICK ROMAN Rep #: [id number] : 1935 89 From: Juan M Mendez [...] at 2:30 PM. Disposition: Discharge home 09/17/24 3322 Cosigner Signature (if applicable): cc: Dr. Stanley [...] intact Psych: Cooperative, appropriate mood and affect [facility] Medical History Change in bowel [...] History (Reviewe (more content not included)... Normal [facility] Eosinophil percentageOrdered By: Juan M Mendez on 09-17-2024 Eosinophils/100 WBC (Bld) 3.3 % 0-5 [facility] Epithelial cells.squamous LM Ql (Urine sed)Ordered By: Juan M Mendez on 09-17-2024 Epithelial cells.squamous LM.HPF (Urine sed) [#/Area] 0 /[HPF] 0-5 [facility] Erythrocyte distribution wid th (RBC) [Ratio]Ordered By: Juan M Mendez on 09-17-2024 Erythrocyte distribution width (RBC) [Entitic vol] 42.4 fL 35.1-43.9 [facility] Erythrocyte distribution wid th ratioOrdered By: Juan M Mendez on 09-17-2024 Erythrocyte distribution width (RBC) [Ratio] 12.8 % 11.6-14.6 [facility] Erythrocyte distribution wid th standard deviationOrdered By: Juan M Millie Avelar on 09-17-2024 Erythrocyte distribution width (RBC) [Ratio] 42.4 fl 35.1-43.9 [facility] Estimation of creatinine michaela aranceOrdered By: Juan M Mendez on 09-17-2024 Estimated Creatinine Clearance Calc 42.46 ml/min Low 50-250 [facility] GFR/1.73 sq M.predicted petra g non-blacks MDRD (S/P/Bld) [Vol rate/Area]Ordered By: Juan M Mendez on 09-17-2024 Estimated GFR (MDRD) Non-Af Amer 73 >60 [facility] Comment on above: mL/min/1.73m2 CKD-EP I Creatinine Equation (2020) Glomerular filtration rate ( GFR) estimation/1.73 sq m using serum, plasma, or whole bOrdered By: Juan M Mendez on 09-17-2024 GFR/1.73 sq M.predicted among non-blacks MDRD (S/P/Bld) [Vol rate/Area] 73 mL/min/{1.73_m2} >60 [facility] Comment on above: mL/min/1.73m2 CKD-EP I Creatinine Equation (2020) Glucose Ql (U)Ordered By: Americo Mendez on 09-17-2024 Urine Glucose (UA) Normal mg/dl Normal [facility] Hematocrit Auto (Bld) [Volum e fraction]Ordered By: Juan M Mendez on 09-17-2024 Hematocrit (Bld) [Volume fraction] 43.9 % 40-54 [facility] Hemoglobin measurementOrdere d By: Juan M Mendez on 09-17-2024 Hemoglobin (Bld) [Mass/Vol] 15.0 g/dL 13.0-16.5 [facility] Immature granulocytes/100 WB C Auto (Bld)Ordered By: Juan M Mendez on 09-17-2024 Immature granulocytes/100 WBC (Bld) 0.400 % 0.0-0.9 [facility] Comment on above: IG% - Immature Granu locytes (promyelocytes, myelocytes and metamyelocytes) > 1% indicates that a LEFT SHIFT is Present. Ketones Test strip Ql (U)Ord ered By: Juan M Mendez on 09-17-2024 Ketones Ql (U) Negative Negative [facility] L501.4021on 09-17-2024 Trop T High Sen 13 ng/L Normal <=22 [facility] Comment on above: Performed By: #### L 100.0100, L501.2450, L503.6005, L500.4050, L501.4021 ####[facility] [address] [place], [place], [address] Laboratory - Chemistry and C hemistry - challengeOrdered By: Juan M Mendez on 09-17-2024 AST [Catalytic activity/Vol] 27 U/L <38 [facility] Lactic Acidon 09-17-2024 Lactate [Moles/Vol] 1.5 mmol/L Normal 0.0-2.0 [facility] Comment on above: Order Comment: Y Performed By: #### L 100.0100, L501.2450, L503.6005, L500.4050, L501.4021 ####[facility] [address] [place], [place], [address] Lactic acid measurementOrder ed By: Juan M Mendez on 09-17-2024 Lactate [Moles/Vol] 1.5 mmol/L 0.0-2.0 [facility] Lipaseon 09-17-2024 Lipase [Catalytic activity/Vol] 27 U/L Normal 13-75 [facility] Comment on above: Result Comment: Franci mills note: LIPASE revised reference range effective 22. New Lipase methodology. Expected to produce lower values than the previous assay method. NEW Reference Range: 13 - 75 U/L Performed By: #### L 100.0100, L501.2450, L503.6005, L500.4050, L501.4021 ####[facility] [address] [place], [address] Lipase measurementOrdered By : Juan M Mendez on 09-17-2024 Lipase [Catalytic activity/Vol] 27 U/L 13-75 [facility] Comment on above: Please note:LIPASE r evised reference range effective 22. New Lipase methodology. Expected to produce lower values than the previous assay method. NEW Reference Range: 13 - 75 U/L Lymphocytes Auto (Unsp spec) [#/Vol]Ordered By: Juan M Mendez on 09-17-2024 Lymphocytes (Bld) [#/Vol] 2.08 10*3/uL 0.83-4.51 [facility] Lymphocytes/100 WBC Auto (Un sp spec)Ordered By: Juan M Mendez on 09-17-2024 Lymphocytes/100 WBC (Bld) 27.6 % 19-41 [facility] MCV (mean corpuscular volume ) determinationOrdered By: Juan M Mendez on 09-17-2024 MCV (RBC) [Entitic vol] 90.3 fL 80-94 [facility] Mean corpuscular hemoglobin (MCH) determinationOrdered By: Juan M Mendez on 09-17-2024 MCH (RBC) [Entitic mass] 30.9 pg 27.0-32.0 [facility] Mean corpuscular hemoglobin concentration (MCHC) determinationOrdered By: Juan M Mendez on 09-17-2024 MCHC (RBC) [Mass/Vol] 34.2 g/dL 32-[address] [facility] Mean platelet volume determi nationOrdered By: Juan M Mendez on 09-17-2024 Platelet mean volume (Bld) [Entitic vol] 10.0 fL 6.2-12.0 [facility] Microscopic analysis of urin e for red blood cells (RBC)Ordered By: Juan M Mendez on 09-17-2024 Microscopic analysis of urine for red blood cells (RBC) 0 SEEN /hpf 0-5 [facility] Urine RBC 0 SEEN /hpf 0-5 [facility] Monocyte percentageOrdered B y: Juan M Mendez on 09-17-2024 Monocytes/100 WBC (Bld) 10.7 % High 0-10 [facility] Mucus LM Ql (Urine sed)Order ed By: Juan M Mendez on 09-17-2024 Mucus Ql (Urine sed) 0 SEEN /hpf [facility] Neutrophil percentageOrdered By: Juan M Mendez on 09-17-2024 Neutrophils/100 WBC (Bld) 56.9 % 47-70 [facility] Nitrite Test strip Ql (U)Ord ered By: Juan M Mendez on 09-17-2024 Nitrite Ql (U) Negative Negative [facility] Nucleated red blood cell per centageOrdered By: Juan M Mendez on 09-17-2024 Nucleated RBC/100 WBC (Bld) [Ratio] 0 % 0-5 [facility] Platelet countOrdered By: Americo Mendez on 09-17-2024 Platelets (Bld) [#/Vol] 229 10*3/uL 150-450 [facility] Potassium (Unsp spec) [Mass/ Vol]Ordered By: Juan M Mendez on 09-17-2024 Potassium [Moles/Vol] 3.9 mmol/L 3.3-5.[address] [facility] Potassium measurement (mass/ volume)Ordered By: Juan M Mendez on 09-17-2024 Potassium (Unsp spec) [Mass/Vol] 3.9 mmol/L 3.3-5.1 [facility] Protein Test strip Ql (U)Ord ered By: Juan M Mendez on 09-17-2024 Protein Ql (U) Negative Negative [facility] RBC Auto (Bld) [#/Vol]Ordere d By: Juan M Mendez on 09-17-2024 RBC (Bld) [#/Vol] 4.86 10*6/uL 4.6-6.2 [facility] Serum creatinine measurement (mass/volume)Ordered By: Juan M Mendez on 09-17-2024 Creatinine [Mass/Vol] 0.99 mg/dL 0.70-1.[address] [facility] Serum globulin measurementOr dered By: Juan M Mendez on 09-17-2024 Globulin (S) [Mass/Vol] 3.1 g/dL 2.2-4.2 [facility] Serum glucose measurement (m ass/volume)Ordered By: Juan M Mendez on 09-17-2024 Glucose [Mass/Vol] 96 mg/dL 70-99 [facility] Serum or plasma alanine randall otransferase (ALT) measurementOrdered By: Juan M Mendez on 09-17-2024 ALT [Catalytic activity/Vol] 23 U/L <47 [facility] Serum or plasma albumin yasmeen urement (mass/volume)Ordered By: Juan M Avelar on 09-17-2024 Albumin [Mass/Vol] 4.2 g/dL 3.4-4.8 [facility] Serum or plasma albumin/glob ulin mass ratioOrdered By: Juan M Mendez on 09-17-2024 Albumin/Globulin [Mass ratio] 1.4 {ratio} 0.9-2.4 [facility] Serum or plasma alkaline zak sphatase measurementOrdered By: Juan M Mendez on 09-17-2024 ALP [Catalytic activity/Vol] 95 U/L 40-129 [facility] Serum or plasma calcium yasmeen urement (mass/volume)Ordered By: Juan M Avelar on 09-17-2024 Calcium [Mass/Vol] 9.5 mg/dL 7.6-11.0 [facility] Serum or plasma urea nitroge n measurement (mass/volume)Ordered By: Juan M Mendez on 09-17-2024 Urea nitrogen [Mass/Vol] 19 mg/dL 4-19 [facility] Sodium levelOrdered By: Huey Mendez on 09-17-2024 Sodium [Moles/Vol] 139 mmol/L 133-145 [facility] Squamous epithelial cells de tection in urine sediment by light microscopyOrdered By: Juan M Mendez on 09-17-2024 Epithelial cells.squamous LM Ql (Urine sed) 0 SEEN /hpf 0-5 [facility] Total proteinOrdered By: Raymond Mendez on 09-17-2024 Protein [Mass/Vol] 7.3 g/dL 5.9-8.4 [facility] Troponin T.cardiac High sens itivity method [Mass/Vol]Ordered By: Juan M Avelar on 09-17-2024 Troponin T High Sensitivity 13 ng/L <22 [facility] Troponin T.cardiac [Mass/vol ume] in Serum or Plasma by High sensitivity methodOrdered By: Juan M Mendez on 09-17-2024 Troponin T.cardiac High sensitivity method [Mass/Vol] 13 ng/L <22 [facility] Urinalysis, Completeon 09-17 BACTERIA 0 SEEN Normal None Seen [facility] Comment on above: Order Comment: CLEAN CATCH Performed By: #### L 400.0001 #### [facility] [address] [place], [place], [id number] EPI,SQUAMOUS 0 SEEN Normal 0-5 [facility] Comment on above: Order Comment: CLEAN CATCH Performed By: #### L 400.0001 #### [facility] [address] [place], [place], [address] Mucus Ql (Urine sed) 0 SEEN Normal [facility] Comment on above: Order Comment: CLEAN CATCH Performed By: #### L 400.0001 #### [facility] [address] [place], [place], [address] RBC 0 SEEN Normal 0-5 [facility] Comment on above: Order Comment: CLEAN CATCH Performed By: #### L 400.0001 #### [facility] [address] [place], [place], [address] WBC 0 SEEN Normal 0-5 [facility] Comment on above: Order Comment: CLEAN CATCH Performed By: #### L 400.0001 #### [facility] [address] [place], [place], [address] Urine blood detectionOrdered By: Juan M Mendez on 09-17-2024 Urine Occult Blood Negative Negative [facility] Urine clarityOrdered By: Raymond Mendez on 09-17-2024 Clarity (U) Clear Clear [facility] Urine color determinationOrd ered By: Juan M Mendez on 09-17-2024 Color (U) Yellow Yellow [facility] Urine glucose detectionOrder ed By: Juan M Mendez on 09-17-2024 Glucose Ql (U) Normal mg/dl Normal [facility] Urine leukocyte esterase det ection by dipstickOrdered By: Juan M Mendez on 09-17-2024 Leukocyte esterase Test strip Ql (U) Negative Negative [facility] Urine pHOrdered By: Juan M Capellan on 09-17-2024 pH (U) 7.0 [pH] 5.0 - 8.0 [facility] Urine sediment bacteria coun t by microscopy (number/high power field)Ordered By: Juan M Mendez on 09-17-2024 Bacteria LM.HPF (Urine sed) [#/Area] 0 /[HPF] None Seen [facility] Urine specific gravity measu rementOrdered By: Juan M Mendez on 09-17-2024 Specific gravity (U) [Rel density] 1.010 1.002-1.030 [facility] Urine urobilinogen measureme ntOrdered By: Juan M Mendez on 09-17-2024 Urobilinogen Ql (U) Normal mg/dl Normal [facility] Urobilinogen Ql (U)Ordered B y: Juan M Mendez on 09-17-2024 Urine Urobilinogen Normal mg/dl Normal [facility] White blood cell (WBC) count Ordered By: Juan M RamosEsperanzaValentino on 09-17-2024 WBC (Bld) [#/Vol] 7.5 10*3/uL 4.4-11.0 [facility] White blood cell countOrdere d By: Juan M Michaelsgett on 09-17-2024 Urine WBC 0 SEEN /hpf 0-5 [facility] White blood cell count 0 SEEN /hpf 0-5 [facility] CTA Abd/Pelvis W/WO Contrast on 09-14-2024 CTA Abd/Pelvis W/WO Contrast [facility] Imaging Services [address] [place] [address] CTA Abd/Pelvis W/WO Contrast MR#: [id number] Acct: [id number] Name: VICK ROMAN Rep #: [id number] : 1935 M 89 From: Sacha Manley MD PCP: Dr. 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 Other nonvascular: Nodules in the LEFT lung base up to 18 mm were not present on previous head nurse images, possibly calcified however this is not [...] 18 mm were not present on previous head nurse images, possibly calcified however this is not definite. Recommend CT chest. 5. 2.5 x 1.7 cm nonspecific nodular lesion katlyn (more content not included)... Normal [facility] CBC W Auto Differential pane l (Bld)on 09-13-2024 Basophils (Bld) [#/Vol] 0.07 10*3/uL Normal <0.11 [facility] Comment on above: Order Comment: Speci men Type: BLOOD SPECIMENOrdering Facility: [facility] Address: [address] [place] [address] Performed By: #### 5 7021-8 ####[facility] [id number] [place] [address] [place] Basophils/100 WBC (Bld) 0.9 % Normal [facility] Comment on above: Order Comment: Speci men Type: BLOOD SPECIMENOrdering Facility: [facility] Address: [address] [place] [address] Performed By: #### 5 7021-8 ####[facility] [id number] [place] [address] [place] Differential cell count method Nom (Bld) Auto Normal [facility] Comment on above: Order Comment: Speci men Type: BLOOD SPECIMENOrdering Facility: [facility] Address: [address] [place] [address] Performed By: #### 5 7021-8 ####[facility] MILLTOWNCLIA [id number] [place] [address] [place] Eosinophils (Bld) [#/Vol] 0.13 10*3/uL Normal <0.46 [facility] Comment on above: Order Comment: Speci men Type: BLOOD SPECIMENOrdering Facility: [facility] Address: [address] [place] [address] Performed By: #### 5 7021-8 ####[facility] [id number] [place] [address] [place] Eosinophils/100 WBC (Bld) 1.6 % Normal [facility] Comment on above: Order Comment: Speci men Type: BLOOD SPECIMENOrdering Facility: [facility] Address: [address] [place] [address] Performed By: #### 5 7021-8 ####[facility]ABIESADAMLIA [id number] [place] [address] [place] Erythrocyte distribution width (RBC) [Ratio] 12.8 % Normal 11.5-15.0 [facility] Comment on above: Order Comment: Speci men Type: BLOOD SPECIMENOrdering Facility: [facility] Address: [address] [place] [address] Performed By: #### 5 7021-8 ####[facility] HOSPITALWNCLIA [id number] [place] [address] [place] Hematocrit (Bld) [Volume fraction] 44.7 % Normal 39.0-51.0 [facility] Comment on above: Order Comment: Speci men Type: BLOOD SPECIMENOrdering Facility: [facility] Address: [address] [place] [address] Performed By: #### 5 7021-8 ####[facility] [id number] [place] [address] [place] Hemoglobin (Bld) [Mass/Vol] 15.3 g/dL Normal 13.0-17.0 [facility] Comment on above: Order Comment: Speci men Type: BLOOD SPECIMENOrdering Facility: [facility] Address: [address] [place] [address] Performed By: #### 5 7021-8 ####[facility] [id number] [place] [address] [place] Immature granulocytes (Bld) [#/Vol] 10*3/uL Normal <0.10 [facility] Comment on above: Order Comment: Speci men Type: BLOOD SPECIMENOrdering Facility: [facility] Address: [address] [place] [address] Performed By: #### 5 7021-8 ####[facility] [id number] [place] [address] [place] Immature granulocytes/100 WBC (Bld) 0.3 % Normal [facility] Comment on above: Order Comment: Speci men Type: BLOOD SPECIMENOrdering Facility: [facility] Address: [address] [place] [address] Performed By: #### 5 7021-8 ####[facility] [id number] [place] [address] [place] Lymphocytes (Bld) [#/Vol] 2.21 10*3/uL Normal 1.00-4.00 [facility] Comment on above: Order Comment: Speci men Type: BLOOD SPECIMENOrdering Facility: [facility] Address: [address] [place] [address] Performed By: #### 5 7021-8 ####[facility] [id number] [place] [address] [place] Lymphocytes/100 WBC (Bld) 27.7 % Normal [facility] Comment on above: Order Comment: Speci men Type: BLOOD SPECIMENOrdering Facility: [facility] Address: [address] [place] [address] Performed By: #### 5 7021-8 ####[facility] [id number] [place] [address] [place] MCH (RBC) [Entitic mass] 30.8 pg Normal 26.0-34.0 [facility] Comment on above: Order Comment: Speci men Type: BLOOD SPECIMENOrdering Facility: [facility] Address: [address] [place] [address] Performed By: #### 5 7021-8 ####[facility] [id number] [place] [address] [place] MCHC (RBC) [Mass/Vol] 34.2 g/dL Normal 30.5-36.0 [facility] Comment on above: Order Comment: Speci men Type: BLOOD SPECIMENOrdering Facility: [facility] Address: [address] [place] [address] Performed By: #### 5 7021-8 ####[facility] BABIESNCA [id number] [place] [address] [place] MCV (RBC) [Entitic vol] 90.1 fL Normal 80.0-100.0 [facility] Comment on above: Order Comment: Speci men Type: BLOOD SPECIMENOrdering Facility: [facility] Address: [address] [place], [place] [address] Performed By: #### 5 7021-8 ####[facility] [id number] [place] [address] [place] Monocytes (Bld) [#/Vol] 0.83 10*3/uL Normal <0.87 [facility] Comment on above: Order Comment: Speci men Type: BLOOD SPECIMENOrdering Facility: [facility] Address: [address] [place] [address] Performed By: #### 5 7021-8 ####[facility] MILLTOWNCLIA [id number] [place] [address] [place] Monocytes/100 WBC (Bld) 10.4 % Normal [facility] Comment on above: Order Comment: Speci men Type: BLOOD SPECIMENOrdering Facility: [facility] Address: [address] [place] [address] Performed By: #### 5 7021-8 ####[facility] MILLTOWNCLIA [id number] [place] [address] [place] Neutrophils (Bld) [#/Vol] 4.72 10*3/uL Normal 1.45-7.50 [facility] Comment on above: Order Comment: Speci men Type: BLOOD SPECIMENOrdering Facility: [facility] Address: [address] [place] [address] Performed By: #### 5 7021-8 ####[facility]OSPITALWNCLIA [id number] [place] [address] [place] Neutrophils/100 WBC (Bld) 59.1 % Normal [facility] Comment on above: Order Comment: Speci men Type: BLOOD SPECIMENOrdering Facility: [facility] Address: [address] [place] [address] Performed By: #### 5 7021-8 ####[facility] MILLTOWNCLIA [id number] [place] [address] [place] Nucleated RBC (Bld) [#/Vol] 10*3/uL Normal <0.01 [facility] Comment on above: Order Comment: Speci men Type: BLOOD SPECIMENOrdering Facility: [facility] Address: [address] [place] [address] Performed By: #### 5 7021-8 ####[facility] MILLWNCLIA [id number] [place] [address] [place] Nucleated RBC/100 WBC (Bld) [Ratio] 0.0 /100 WBC Normal [facility] Comment on above: Order Comment: Speci men Type: BLOOD SPECIMENOrdering Facility: [facility] Address: [address] [place] [address] Performed By: #### 5 7021-8 ####[facility] HOSPITALCody [id number] [place] [address] [place] Platelet mean volume (Bld) [Entitic vol] 10.1 fL Normal 9.0-12.7 [facility] Comment on above: Order Comment: Speci men Type: BLOOD SPECIMENOrdering Facility: [facility] Address: [address] [place] [address] Performed By: #### 5 7021-8 ####[facility] [id number] [place] [address] [place] Platelets (Bld) [#/Vol] 229 10*3/uL Normal 150-400 [facility] Comment on above: Order Comment: Speci men Type: BLOOD SPECIMENOrdering Facility: [facility] Address: [address] [place] [address] Performed By: #### 5 7021-8 ####[facility] HOSPITALCody [id number] [place] [address] [place] RBC (Bld) [#/Vol] 4.96 10*6/uL Normal 4.20-6.00 [facility] Comment on above: Order Comment: Speci men Type: BLOOD SPECIMENOrdering Facility: [facility] Address: [address] [place] [address] Performed By: #### 5 7021-8 ####[facility]ENTERLI [id number] [place] [address] [place] WBC (Bld) [#/Vol] 7.98 10*3/uL Normal 3.70-11.00 [facility] Comment on above: Order Comment: Speci men Type: BLOOD SPECIMENOrdering Facility: [facility] Address: [address] [place] [address] Performed By: #### 5 7021-8 ####[facility] DAVID THOMPSONDEACONESS GATEWAY AND WOMEN'S HOSPITALLICody [id number] [place] [address] [place] CNOVSPon 09-13-2024 CNOVSP Visit (SP) Office (HEMAWS) VICK ROMAN ([id number]) 1935 M Date Time Provider Department 09/13/24 10:30 AM TOMAS FONTENOT During your visit today, we recorded the following information about you: Temperature Pulse Blood pressure Weight 98 degrees 66/minute 167/99 59 kg Tomas Fontenot DO 09/13/2024 11:43 AM Signed Oncologic problem(s): [...] within constraints of artifact from dental amalgam. Education Reporter spaces appear normal. Infrahyoid Neck: Hypopharynx, larynx, [...] CD138 (B-A38) negative BCL-2 (bcl-2/100/D5) positive BCL-6 (FS961P/A8) negative Cyclin D1/BCL-1 (SP4) negative MUM1 (MRQ-43) negative C-MYC (Y69) negative Mesick (polyclonal) negative Lambda (polyclonal) negative P53 (DO-7) [...] Date COL (more content not included)... Normal [facility] Comprehensive metabolic 2000 panelon 09-13-2024 Albumin [Mass/Vol] 4.4 g/dL Normal 3.9-4.9 [facility] Comment on above: Order Comment: Speci men Type: BLOOD SPECIMENOrdering Facility: [facility] Address: [address] [place] [address] Performed By: #### 2 532-0, 95824-6 ####[facility] [id number] [place] [address] [place] ALP [Catalytic activity/Vol] 95 U/L Normal 38-113 [facility] Comment on above: Order Comment: Speci men Type: BLOOD SPECIMENOrdering Facility: [facility] Address: [address] [place] [address] Performed By: #### 2 532-0, 71609-8 ####[facility] HOSPITALTOWNCLIA [id number] [place] [address] [place] ALT [Catalytic activity/Vol] 17 U/L Normal 10-54 [facility] Comment on above: Order Comment: Speci men Type: BLOOD SPECIMENOrdering Facility: [facility] Address: [address] [place] [address] Performed By: #### 2 532-0, 84703-1 ####[facility] MILLTOWNCLIA [id number] [place] [address] [place] Anion gap [Moles/Vol] 11 mmol/L Normal 8-15 [facility] Comment on above: Order Comment: Speci men Type: BLOOD SPECIMENOrdering Facility: [facility] Address: [address] [place] [address] Performed By: #### 2 532-0, 31669-3 ####[facility] HOSPITALWNCLIA [id number] [place] [address] [place] AST [Catalytic activity/Vol] 16 U/L Normal 14-40 [facility] Comment on above: Order Comment: Speci men Type: BLOOD SPECIMENOrdering Facility: [facility] Address: [address] [place] [address] Performed By: #### 2 532-0, 86144-2 ####[facility] DONNATOWNCLIA [id number] [place] [address] [place] Bilirubin [Mass/Vol] 1.7 mg/dL High 0.2-1.3 [facility] Comment on above: Order Comment: Speci men Type: BLOOD SPECIMENOrdering Facility: [facility] Address: [address] [place] [address] Performed By: #### 2 532-0, 75298-9 ####[facility] MILLTOWNCLIA [id number] [place] [address] [place] Calcium [Mass/Vol] 9.9 mg/dL Normal 8.5-10.2 [facility] Comment on above: Order Comment: Speci men Type: BLOOD SPECIMENOrdering Facility: [facility] Address: [address] [place] [address] Performed By: #### 2 532-0, 86358-1 ####[facility] MILLWADAMLIA [id number] [place] [address] [place] Chloride [Moles/Vol] 101 mmol/L Normal 98-107 [facility] Comment on above: Order Comment: Speci men Type: BLOOD SPECIMENOrdering Facility: [facility] Address: [address] [place] [address] Performed By: #### 2 532-0, 73141-6 ####[facility] CENTERLIA [id number] [place] [address] [place] CO2 [Moles/Vol] 28 mmol/L Normal 22-30 [facility] Comment on above: Order Comment: Speci men Type: BLOOD SPECIMENOrdering Facility: [facility] Address: [address] [place] [address] Performed By: #### 2 532-0, 41523-9 ####[facility] CENTERLIA [id number] [place] [address] [place] Creatinine [Mass/Vol] 0.94 mg/dL Normal 0.73-1.22 [facility] Comment on above: Order Comment: Speci men Type: BLOOD SPECIMENOrdering Facility: [facility] Address: [address] [place] [address] Performed By: #### 2 532-0, 67584-8 ####[facility]OM[facility] & BABIESNCLIA [id number] [place] [address] [place] Creatinine and Glomerular filtration rate.predicted panel (S/P/Bld) 78 mL/min/1.73m??? Normal >=60 [facility] Comment on above: Order Comment: Vanna benítez Type: BLOOD SPECIMENOrdering Facility: [facility] Address: [address] [place] [address] Result Comment: Renate mated Glomerular Filtration Rate [...] actual GFR. Performed By: #### 2 532-0, 00360-5 ####[facility] [id number] [place] [address] [place] Glucose [Mass/Vol] 115 mg/dL High 74-99 [facility] Comment on above: Order Comment: Vanna benítez Type: BLOOD SPECIMENOrdering Facility: [facility] Address: [address] [place] [address] Result Comment: The [place] [employer] (ADA) provides guidance for cutoff [...] Standards of Medical Care in Diabetes 2016, [place] [employer]. Diabetes Care. 2016.39(Suppl 1). Performed By: #### 2 532-0, 54214-3 ####[facility] [id number] [place] [address] [place] Potassium [Moles/Vol] 4.0 mmol/L Normal 3.7-5.1 [facility] Comment on above: Order Comment: Vanna benítez Type: BLOOD SPECIMENOrdering Facility: [facility] Address: [address] [place] [address] Performed By: #### 2 532-0, 48998-0 ####[facility] MANJINDERADAMXIMENAA [id number] [place] [address] [place] Protein [Mass/Vol] 7.4 g/dL Normal 6.3-8.0 [facility] Comment on above: Order Comment: Speci men Type: BLOOD SPECIMENOrdering Facility: [facility] Address: [address] [place] [address] Performed By: #### 2 532-0, 40179-0 ####[facility] DONNADOYLESTOWNVIKTORIYA [id number] [place] [address] [place] Sodium [Moles/Vol] 140 mmol/L Normal 136-144 [facility] Comment on above: Order Comment: Speci men Type: BLOOD SPECIMENOrdering Facility: [facility] Address: [address] [place] [address] Performed By: #### 2 532-0, 09874-2 ####[facility] WOM[facility] & BABIESDEVIA [id number] [place] [address] [place] Urea nitrogen [Mass/Vol] 18 mg/dL Normal 9-24 [facility] Comment on above: Order Comment: Speci men Type: BLOOD SPECIMENOrdering Facility: [facility] Address: [address] [place] [address] Performed By: #### 2 532-0, 63609-7 ####[facility] HOSPITALWNCLIA [id number] [place] [address] [place] LDH SerPl-cCncon 09-13-2024 LDH [Catalytic activity/Vol] 167 U/L Normal 135-225 [facility] Comment on above: Order Comment: Speci men Type: BLOOD SPECIMENOrdering Facility: [facility] Address: [address] [place] [address] Performed By: #### 2 532-0, 46114-0 ####[facility] [id number] [place] [address] [place] CBC W Auto Differential pane l (Bld)on 07-07-2024 Basophils (Bld) [#/Vol] 0.09 10*3/uL Normal <0.11 [facility] Comment on above: Order Comment: Speci men Type: BLOOD SPECIMENOrdering Facility: [facility] Address: [address] [place] [address] Performed By: #### 5 7021-8 ####[facility] LABCLIA [id number] [place] [address] [place] Basophils/100 WBC (Bld) 1.2 % Normal [facility] Comment on above: Order Comment: Speci men Type: BLOOD SPECIMENOrdering Facility: [facility] Address: [address] [place] [address] Performed By: #### 5 7021-8 ####[facility] LABCLIA [id number] [place] [address] [place] Differential cell count method Nom (Bld) Auto Normal [facility] Comment on above: Order Comment: Speci men Type: BLOOD SPECIMENOrdering Facility: [facility] Address: [address] [place] [address] Performed By: #### 5 7021-8 ####[facility] LABCLIA [id number] [place] [address] [place] Eosinophils (Bld) [#/Vol] 0.18 10*3/uL Normal <0.46 [facility] Comment on above: Order Comment: Speci men Type: BLOOD SPECIMENOrdering Facility: [facility] Address: [address] [place] [address] Performed By: #### 5 7021-8 ####[facility] LABCLIA [id number] [address] [id number] [address] [place] Eosinophils/100 WBC (Bld) 2.4 % Normal [facility] Comment on above: Order Comment: Speci men Type: BLOOD SPECIMENOrdering Facility: [facility] Address: [address] [place] [address] Performed By: #### 5 7021-8 ####[facility] LABCLIA [id number] [place] [address] [place] Erythrocyte distribution width (RBC) [Ratio] 13.2 % Normal 11.5-15.0 [facility] Comment on above: Order Comment: Speci men Type: BLOOD SPECIMENOrdering Facility: [facility] Address: [address] [place] [address] Performed By: #### 5 7021-8 ####[facility] LABCLIA [id number] [place] [address] [place] Hematocrit (Bld) [Volume fraction] 43.7 % Normal 39.0-51.0 [facility] Comment on above: Order Comment: Speci men Type: BLOOD SPECIMENOrdering Facility: [facility] Address: [address] [place] [address] Performed By: #### 5 7021-8 ####[facility] LABCLIA [id number] [place] [address] [place] Hemoglobin (Bld) [Mass/Vol] 14.3 g/dL Normal 13.0-17.0 [facility] Comment on above: Order Comment: Speci men Type: BLOOD SPECIMENOrdering Facility: [facility] Address: [address] [place] [address] Performed By: #### 5 7021-8 ####[facility] LABCLIA [id number] [place] [address] [place] Immature granulocytes (Bld) [#/Vol] 10*3/uL Normal <0.10 [facility] Comment on above: Order Comment: Speci men Type: BLOOD SPECIMENOrdering Facility: [facility] Address: [address] [place] [address] Performed By: #### 5 7021-8 ####[facility] LABCLIA [id number] [place] [address] [place] Immature granulocytes/100 WBC (Bld) 0.1 % Normal [facility] Comment on above: Order Comment: Speci men Type: BLOOD SPECIMENOrdering Facility: [facility] Address: [address] [place] [address] Performed By: #### 5 7021-8 ####[facility] LABCLIA [id number] [place] [address] [place] Lymphocytes (Bld) [#/Vol] 2.31 10*3/uL Normal 1.00-4.00 [facility] Comment on above: Order Comment: Speci men Type: BLOOD SPECIMENOrdering Facility: [facility] Address: [address] [place] [address] Performed By: #### 5 7021-8 ####[facility] LABIA [id number] [place] [address] [place] Lymphocytes/100 WBC (Bld) 30.8 % Normal [facility] Comment on above: Order Comment: Speci men Type: BLOOD SPECIMENOrdering Facility: [facility] Address: [address] [place] [address] Performed By: #### 5 7021-8 ####[facility] LABCLIA [id number] [place] [address] [place] MCH (RBC) [Entitic mass] 30.5 pg Normal 26.0-34.0 [facility] Comment on above: Order Comment: Speci men Type: BLOOD SPECIMENOrdering Facility: [facility] Address: [address] [place] [address] Performed By: #### 5 7021-8 ####[facility] LABCLIA [id number] [place] [address] [place] MCHC (RBC) [Mass/Vol] 32.7 g/dL Normal 30.5-36.0 [facility] Comment on above: Order Comment: Speci men Type: BLOOD SPECIMENOrdering Facility: [facility] Address: [address] [place] [address] Performed By: #### 5 7021-8 ####[facility] LABCLIA [id number] [place] [address] [place] MCV (RBC) [Entitic vol] 93.2 fL Normal 80.0-100.0 [facility] Comment on above: Order Comment: Speci men Type: BLOOD SPECIMENOrdering Facility: [facility] Address: [address] [place] [address] Performed By: #### 5 7021-8 ####[facility] LABCLIA [id number] [place] [address] [place] Monocytes (Bld) [#/Vol] 0.72 10*3/uL Normal <0.87 [facility] Comment on above: Order Comment: Speci men Type: BLOOD SPECIMENOrdering Facility: [facility] Address: [address] [place] [address] Performed By: #### 5 7021-8 ####[facility] LABIA [id number] [place] [address] [place] Monocytes/100 WBC (Bld) 9.6 % Normal [facility] Comment on above: Order Comment: Speci men Type: BLOOD SPECIMENOrdering Facility: [facility] Address: [address] [place] [address] Performed By: #### 5 7021-8 ####[facility] LABCLIA [id number] [place] [address] [place] Neutrophils (Bld) [#/Vol] 4.19 10*3/uL Normal 1.45-7.50 [facility] Comment on above: Order Comment: Speci men Type: BLOOD SPECIMENOrdering Facility: [facility] Address: [address] [place] [address] Performed By: #### 5 7021-8 ####[facility] LABCLIA [id number] [place] [address] [place] Neutrophils/100 WBC (Bld) 55.9 % Normal [facility] Comment on above: Order Comment: Speci men Type: BLOOD SPECIMENOrdering Facility: [facility] Address: [address] [place] [address] Performed By: #### 5 7021-8 ####[facility] LABCLIA [id number] [place] [address] [place] Nucleated RBC (Bld) [#/Vol] 10*3/uL Normal <0.01 [facility] Comment on above: Order Comment: Speci men Type: BLOOD SPECIMENOrdering Facility: [facility] Address: [address] [place] [address] Performed By: #### 5 7021-8 ####[facility] LABCLIA [id number] [place] [address] [place] Nucleated RBC/100 WBC (Bld) [Ratio] 0.0 /100 WBC Normal [facility] Comment on above: Order Comment: Speci men Type: BLOOD SPECIMENOrdering Facility: [facility] Address: [address] [place] [address] Performed By: #### 5 7021-8 ####[facility] LABCLIA [id number] [place] [address] [place] Platelet mean volume (Bld) [Entitic vol] 11.0 fL Normal 9.0-12.7 [facility] Comment on above: Order Comment: Speci men Type: BLOOD SPECIMENOrdering Facility: [facility] Address: [address] [place] [address] Performed By: #### 5 7021-8 ####[facility] LABCLIA [id number] [place] [address] [place] Platelets (Bld) [#/Vol] 230 10*3/uL Normal 150-400 [facility] Comment on above: Order Comment: Speci men Type: BLOOD SPECIMENOrdering Facility: [facility] Address: [address] [place] [address] Performed By: #### 5 7021-8 ####[facility] [id number] [place] [address] [place] RBC (Bld) [#/Vol] 4.69 10*6/uL Normal 4.20-6.00 [facility] Comment on above: Order Comment: Speci men Type: BLOOD SPECIMENOrdering Facility: [facility] Address: [address] [place] [address] Performed By: #### 5 7021-8 ####[facility] [id number] [place] [address] [place] WBC (Bld) [#/Vol] 7.50 10*3/uL Normal 3.70-11.00 [facility] Comment on above: Order Comment: Speci men Type: BLOOD SPECIMENOrdering Facility: [facility] Address: [address] [place] [address] Performed By: #### 5 7021-8 ####[facility] [id number] [place] [address] [place] CNOVon 07-07-2024 CNOV Office Visit (FAMPWS ) VICK ROMAN ([id number]) 1935 M Date Time Provider Department 07/07/24 10:00 AM [facility] During your visit today, we recorded the [...] Colonoscopy COLONOSCOPY VIA [facility] W OR W/O [facility] [facility] 04/27/14 PAST SURGICAL HISTORY OF lymph node [...] 305.1, ICD10: Z72.0 - declines cessation. Stanley Dorinda Kaiser RTO in six months and prn. Allergies As of Date: 07/07/2024 (No Known Allergies) Date Reviewed: 07/07/2024 Reviewed by: Jess Rich LPN - Fully Assessed Reason for Visit (more content not included)... Normal [facility] Comprehensive metabolic 2000 panelon 07-07-2024 Albumin [Mass/Vol] 4.4 g/dL Normal 3.9-4.9 [facility] Comment on above: Order Comment: Speci men Type: BLOOD SPECIMENOrdering Facility: [facility] Address: [address] [place] [address] Performed By: #### 2 4323-8, 23319-5 ####[facility] LABIA [id number] [place] [address] [place] ALP [Catalytic activity/Vol] 82 U/L Normal 38-113 [facility] Comment on above: Order Comment: Speci men Type: BLOOD SPECIMENOrdering Facility: [facility] Address: [address] [place] [address] Performed By: #### 2 4323-8, 46073-2 ####[facility] LABCLIA [id number] [place] [address] [place] ALT [Catalytic activity/Vol] 27 U/L Normal 10-54 [facility] Comment on above: Order Comment: Speci men Type: BLOOD SPECIMENOrdering Facility: [facility] Address: [address] [place] [address] Performed By: #### 2 4323-8, 18149-8 ####[facility] LABCLIA [id number] [place] [address] [place] Anion gap [Moles/Vol] 12 mmol/L Normal 8-15 [facility] Comment on above: Order Comment: Speci men Type: BLOOD SPECIMENOrdering Facility: [facility] Address: [address] [place] [address] Performed By: #### 2 4323-8, 56997-1 ####[facility] LABCLIA [id number] [place] [address] [place] AST [Catalytic activity/Vol] 24 U/L Normal 14-40 [facility] Comment on above: Order Comment: Speci men Type: BLOOD SPECIMENOrdering Facility: [facility] Address: [address] [place] [address] Performed By: #### 2 4323-8, 16880-7 ####[facility] LABCLIA [id number] [place] [address] [place] Bilirubin [Mass/Vol] 1.0 mg/dL Normal 0.2-1.3 [facility] Comment on above: Order Comment: Speci men Type: BLOOD SPECIMENOrdering Facility: [facility] Address: [address] [place] [address] Performed By: #### 2 4323-8, 15445-7 ####[facility] LABCLIA [id number] [place] [address] [place] Calcium [Mass/Vol] 9.2 mg/dL Normal 8.5-10.2 [facility] Comment on above: Order Comment: Speci men Type: BLOOD SPECIMENOrdering Facility: [facility] Address: [address] [place] [address] Performed By: #### 2 4323-8, 79512-6 ####[facility] LABCLIA [id number] [place] [address] [place] Chloride [Moles/Vol] 100 mmol/L Normal 98-107 [facility] Comment on above: Order Comment: Speci men Type: BLOOD SPECIMENOrdering Facility: [facility] Address: [address] [place] [address] Performed By: #### 2 4323-8, 95613-1 ####[facility] LABCLIA [id number] [place] [address] [place] CO2 [Moles/Vol] 27 mmol/L Normal 22-30 [facility] Comment on above: Order Comment: Speci men Type: BLOOD SPECIMENOrdering Facility: [facility] Address: [address] [place] [address] Performed By: #### 2 4323-8, 51056-6 ####[facility] [id number] [place] [address] [place] Creatinine [Mass/Vol] 0.92 mg/dL Normal 0.73-1.22 [facility] Comment on above: Order Comment: Speci men Type: BLOOD SPECIMENOrdering Facility: [facility] Address: [address] [place] [address] Performed By: #### 2 4323-8, 24669-0 ####[facility] [id number] [place] [address] [place] Creatinine and Glomerular filtration rate.predicted panel (S/P/Bld) 81 mL/min/1.73m??? Normal >=60 [facility] Comment on above: Order Comment: Speci men Type: BLOOD SPECIMENOrdering Facility: [facility] Address: [address] [place] [address] Result Comment: Renate mated Glomerular Filtration Rate [...] actual GFR. Performed By: #### 2 4323-8, 84613-0 ####[facility] LABCLIA [id number] [place] [address] [place] Glucose [Mass/Vol] 106 mg/dL High 74-99 [facility] Comment on above: Order Comment: Speci men Type: BLOOD SPECIMENOrdering Facility: [facility] Address: [address] [place] [address] Result Comment: The [place] Diabetes Association (ADA) provides guidance for cutoff [...] Standards of Medical Care in Diabetes 2016, [place] [employer]. Diabetes Care. 2016.39(Suppl 1). Performed By: #### 2 4323-8, 69762-9 ####[facility] LABCLIA [id number] [place] [address] [place] Potassium [Moles/Vol] 4.2 mmol/L Normal 3.7-5.1 [facility] Comment on above: Order Comment: Speci men Type: BLOOD SPECIMENOrdering Facility: [facility] Address: [address] [place] [address] Performed By: #### 2 4323-8, 90141-5 ####[facility] LABCLIA [id number] [place] [address] [place] Protein [Mass/Vol] 7.2 g/dL Normal 6.3-8.0 [facility] Comment on above: Order Comment: Speci men Type: BLOOD SPECIMENOrdering Facility: [facility] Address: [address] [place] [address] Performed By: #### 2 4323-8, 72048-7 ####[facility] LABCLIA [id number] [place] [address] [place] Sodium [Moles/Vol] 139 mmol/L Normal 136-144 [facility] Comment on above: Order Comment: Nicolei men Type: BLOOD SPECIMENOrdering Facility: [facility] Address: [address] [place] [address] Performed By: #### 2 4323-8, 66081-4 ####[facility] [id number] [place] [address] [place] Urea nitrogen [Mass/Vol] 17 mg/dL Normal 9-24 [facility] Comment on above: Order Comment: Nicolei men Type: BLOOD SPECIMENOrdering Facility: [facility] Address: [address] [place] [address] Performed By: #### 2 4323-8, 30794-7 ####[facility] [id number] [place] [address] [place] HbA1c (Bld)on 07-07-2024 Average glucose Estimated from glycated hemoglobin (Bld) [Mass/Vol] 111 mg/dL Normal [facility] Comment on above: Order Comment: Nicolei men Type: BLOOD SPECIMENOrdering Facility: [facility] Address: [address] [place] [address] Result Comment: eAG: (Estimated average glucose) is a calculated value from HgbA1c and is outbound call center representative of the average blood glucose level in the last 2-3 month period. Performed By: #### 5 5454-3 ####[facility] [id number] [place] [address] [place] HbA1c (Bld) [Mass fraction] 5.5 % Normal 4.3-5.6 [facility] Comment on above: Order Comment: Vanna men Type: BLOOD SPECIMENOrdering Facility: [facility] Address: [address] [place] [address] Result Comment: Amer [place] Diabetes Association guidelines indicate that patients with HgbA1c in the range 5.7-6.4% are at increased risk for development of diabetes, and intervention by lifestyle modification may be beneficial. HgbA1c greater or equal to 6.5% is considered diagnostic of diabetes. Performed By: #### 5 5454-3 ####[facility] LABCLIA [id number] [place] [address] [place] Lipid 1996 panelon 5 Cholesterol [Mass/Vol] 134 mg/dL Normal <[address] [facility] Comment on above: Order Comment: Vanna men Type: BLOOD SPECIMENOrdering Facility: [facility] Address: [address] [place] [address] Result Comment: <200 mg/dL, Desirable 200-239 mg/dL, Borderline high >239 mg/dL, High Performed By: #### 2 4323-8, 20583-6 ####[facility] [id number] [address] [facility] Cholesterol in HDL [Mass/Vol] 60 mg/dL Normal >39 [facility] Comment on above: Order Comment: Vanna benítez Type: BLOOD SPECIMENOrdering Facility: [facility] Address: [address] [place] [address] Result Comment: 40-5 9 mg/dL, Acceptable >59 mg/dL, High: Negative risk factor for coronary heart disease <40 mg/dL, Low: Positive risk factor for coronary heart disease Performed By: #### 2 4323-8, 30854-0 ####[facility] [id number] [address] [facility] Cholesterol in LDL [Mass/Vol] 57 mg/dL Normal <100 [facility] Comment on above: Order Comment: Vanna benítez Type: BLOOD SPECIMENOrdering Facility: [facility] Address: [address] [place] [address] Result Comment: <100 mg/dL, Optimal 100-129 mg/dL, Near optimal/above optimal 130-159 mg/dL, Borderline high 160-189 mg/dL, High >189 mg/dL, Very high Secondary prevention optimal LDL Cholesterol levels are recommended to be < 70 mg/dL Performed By: #### 2 4323-8, 14240-9 ####[facility] LABCLIA [id number] [address] [place] Cholesterol in LDL/Cholesterol in HDL [Mass ratio] 0.95 {ratio} Normal <2.54 [facility] Comment on above: Order Comment: Speci men Type: BLOOD SPECIMENOrdering Facility: [facility] Address: [address] [place] [address] Result Comment: Refe rence: 1. National Cholesterol Education Program ATP III Guideline At-A-Glance Quick Desk Reference: National Heart, Lung, and Blood [place]. National Institutes of Health. 2001: NIH Publication No. 01-3305. 2. An International Atherosclerosis Society position paper: global recommendations for the management of dyslipidemia: executive summary, Atherosclerosis. 2014: 232(2):410-413. Performed By: #### 2 4323-8, 58968-3 ####[facility] LABCLIA [id number] [place] [address] [place] Cholesterol in VLDL [Mass/Vol] 17 mg/dL Normal <30 [facility] Comment on above: Order Comment: Nicolei men Type: BLOOD SPECIMENOrdering Facility: [facility] Address: [address] [place] [address] Performed By: #### 2 4323-8, 59447-3 ####[facility] LABCLIA [id number] [place] [address] [place] Cholesterol non HDL [Mass/Vol] 74 mg/dL Normal <130 [facility] Comment on above: Order Comment: Speci men Type: BLOOD SPECIMENOrdering Facility: [facility] Address: [address] [place] [address] Result Comment: <130 mg/dL, Optimal 130-159 mg/dL, Near optimal/above optimal 160-189 mg/dL, Borderline high 190-219 mg/dL, High >219 mg/dL, Very high Secondary prevention optimal non HDL Cholesterol levels are recommended to be <100 mg/dL Performed By: #### 2 4323-8, 45828-0 ####[facility] LABCLIA [id number] [place] [address] [place] Cholesterol.total/Lexi sterol in HDL [Mass ratio] 2.23 {ratio} Normal <5.10 [facility] Comment on above: Order Comment: Speci men Type: BLOOD SPECIMENOrdering Facility: [facility] Address: [address] [place] [address] Performed By: #### 2 4323-8, 72813-7 ####[facility] [id number] [place] [address] [place] FASTING TIME 12 hrs Normal [facility] Comment on above: Order Comment: Speci men Type: BLOOD SPECIMENOrdering Facility: [facility] Address: [address] [place] [address] Performed By: #### 2 4323-8, 56704-5 ####[facility] [id number] [place] [address] [place] Triglyceride [Mass/Vol] 84 mg/dL Normal <150 [facility] Comment on above: Order Comment: Speci men Type: BLOOD SPECIMENOrdering Facility: [facility] Address: [address] [place] [address] Result Comment: <150 mg/dL, Normal 150-199 mg/dL, Borderline high 200-499 mg/dL, High >499 mg/dL, Very high Performed By: #### 2 4323-8, 12369-3 ####[facility] [id number] [place] [address] [place] CBC W Auto Differential pane l (Bld)on 03-15-2024 Basophils (Bld) [#/Vol] 0.07 10*3/uL Normal <0.11 [facility] Comment on above: Order Comment: Speci men Type: BLOOD SPECIMENOrdering Facility: [facility] Address: [address] [place] [address] Performed By: #### 5 7021-8 ####[facility] MILLWNCLIA [id number] [place] [address] [place] Basophils/100 WBC (Bld) 0.9 % Normal [facility] Comment on above: Order Comment: Speci men Type: BLOOD SPECIMENOrdering Facility: [facility] Address: [address] [place] [address] Performed By: #### 5 7021-8 ####[facility]ENTERLIA [id number] [place] [address] [place] Differential cell count method Nom (Bld) Auto Normal [facility] Comment on above: Order Comment: Speci men Type: BLOOD SPECIMENOrdering Facility: [facility] Address: [address] [place] [address] Performed By: #### 5 7021-8 ####[facility] [id number] [place] [address] [place] Eosinophils (Bld) [#/Vol] 0.25 10*3/uL Normal <0.46 [facility] Comment on above: Order Comment: Speci men Type: BLOOD SPECIMENOrdering Facility: [facility] Address: [address] [place] [address] Performed By: #### 5 7021-8 ####[facility]PITALA [id number] [place] [address] [place] Eosinophils/100 WBC (Bld) 3.1 % Normal [facility] Comment on above: Order Comment: Speci men Type: BLOOD SPECIMENOrdering Facility: [facility] Address: [address] [place] [address] Performed By: #### 5 7021-8 ####[facility] BABIESNCLI [id number] [place] [address] [place] Erythrocyte distribution width (RBC) [Ratio] 12.7 % Normal 11.5-15.0 [facility] Comment on above: Order Comment: Speci men Type: BLOOD SPECIMENOrdering Facility: [facility] Address: [address] [place] [address] Performed By: #### 5 7021-8 ####[facility] [id number] [place] [address] [place] Hematocrit (Bld) [Volume fraction] 43.1 % Normal 39.0-51.0 [facility] Comment on above: Order Comment: Speci men Type: BLOOD SPECIMENOrdering Facility: [facility] Address: [address] [place] [address] Performed By: #### 5 7021-8 ####[facility] [id number] [place] [address] [place] Hemoglobin (Bld) [Mass/Vol] 14.2 g/dL Normal 13.0-17.0 [facility] Comment on above: Order Comment: Speci men Type: BLOOD SPECIMENOrdering Facility: [facility] Address: [address] [place] [address] Performed By: #### 5 7021-8 ####[facility] [id number] [place] [address] [place] Immature granulocytes (Bld) [#/Vol] 10*3/uL Normal <0.10 [facility] Comment on above: Order Comment: Speci men Type: BLOOD SPECIMENOrdering Facility: [facility] Address: [address] [place] [address] Performed By: #### 5 7021-8 ####[facility] [id number] [place] [address] [place] Immature granulocytes/100 WBC (Bld) 0.2 % Normal [facility] Comment on above: Order Comment: Speci men Type: BLOOD SPECIMENOrdering Facility: [facility] Address: [address] [place] [address] Performed By: #### 5 7021-8 ####[facility] DONNAGINOA [id number] [place] [address] [place] Lymphocytes (Bld) [#/Vol] 2.58 10*3/uL Normal 1.00-4.00 [facility] Comment on above: Order Comment: Speci men Type: BLOOD SPECIMENOrdering Facility: [facility] Address: [address] [place] [address] Performed By: #### 5 7021-8 ####[facility] [id number] [place] [address] [place] Lymphocytes/100 WBC (Bld) 31.8 % Normal [facility] Comment on above: Order Comment: Speci men Type: BLOOD SPECIMENOrdering Facility: [facility] Address: [address] [place] [address] Performed By: #### 5 7021-8 ####[facility] CENTERXIMENAA [id number] [place] [address] [place] MCH (RBC) [Entitic mass] 30.6 pg Normal 26.0-34.0 [facility] Comment on above: Order Comment: Speci men Type: BLOOD SPECIMENOrdering Facility: [facility] Address: [address] [place] [address] Performed By: #### 5 7021-8 ####[facility] & BABIESNCLIA [id number] [place] [address] [place] MCHC (RBC) [Mass/Vol] 32.9 g/dL Normal 30.5-36.0 [facility] Comment on above: Order Comment: Speci men Type: BLOOD SPECIMENOrdering Facility: [facility] Address: [address] [place] [address] Performed By: #### 5 7021-8 ####[facility] DONNAWADAMLIA [id number] [place] [address] [place] MCV (RBC) [Entitic vol] 92.9 fL Normal 80.0-100.0 [facility] Comment on above: Order Comment: Speci men Type: BLOOD SPECIMENOrdering Facility: [facility] Address: [address] [place] [address] Performed By: #### 5 7021-8 ####[facility] [id number] [place] [address] [place] Monocytes (Bld) [#/Vol] 0.82 10*3/uL Normal <0.87 [facility] Comment on above: Order Comment: Speci men Type: BLOOD SPECIMENOrdering Facility: [facility] Address: [address] [place] [address] Performed By: #### 5 7021-8 ####[facility] [id number] [place] [address] [place] Monocytes/100 WBC (Bld) 10.1 % Normal [facility] Comment on above: Order Comment: Speci men Type: BLOOD SPECIMENOrdering Facility: [facility] Address: [address] [place] [address] Performed By: #### 5 7021-8 ####[facility] CENTERLIA [id number] [place] [address] [place] Neutrophils (Bld) [#/Vol] 4.38 10*3/uL Normal 1.45-7.50 [facility] Comment on above: Order Comment: Speci men Type: BLOOD SPECIMENOrdering Facility: [facility] Address: [address] [place] [address] Performed By: #### 5 7021-8 ####[facility]ENTERLIA [id number] [place] [address] [place] Neutrophils/100 WBC (Bld) 53.9 % Normal [facility] Comment on above: Order Comment: Speci men Type: BLOOD SPECIMENOrdering Facility: [facility] Address: [address] [place] [address] Performed By: #### 5 7021-8 ####[facility] [id number] [place] [address] [place] Nucleated RBC (Bld) [#/Vol] 10*3/uL Normal <0.01 [facility] Comment on above: Order Comment: Speci men Type: BLOOD SPECIMENOrdering Facility: [facility] Address: [address] [place] [address] Performed By: #### 5 7021-8 ####[facility] [id number] [place] [address] [place] Nucleated RBC/100 WBC (Bld) [Ratio] 0.0 /100 WBC Normal [facility] Comment on above: Order Comment: Speci men Type: BLOOD SPECIMENOrdering Facility: [facility] Address: [address] [place] [address] Performed By: #### 5 7021-8 ####[facility] [id number] [place] [address] [place] Platelet mean volume (Bld) [Entitic vol] 9.6 fL Normal 9.0-12.7 [facility] Comment on above: Order Comment: Speci men Type: BLOOD SPECIMENOrdering Facility: [facility] Address: [address] [place] [address] Performed By: #### 5 7021-8 ####[facility] [id number] [place] [address] [place] Platelets (Bld) [#/Vol] 250 10*3/uL Normal 150-400 [facility] Comment on above: Order Comment: Speci men Type: BLOOD SPECIMENOrdering Facility: [facility] Address: [address] [place] [address] Performed By: #### 5 7021-8 ####[facility] DONNADOYLESTOWNNCLIA [id number] [place] [address] [place] RBC (Bld) [#/Vol] 4.64 10*6/uL Normal 4.20-6.00 [facility] Comment on above: Order Comment: Speci men Type: BLOOD SPECIMENOrdering Facility: [facility] Address: [address] [place] [address] Performed By: #### 5 7021-8 ####[facility] DONNADOYLESTOWNNCLIA [id number] [place] [address] [place] WBC (Bld) [#/Vol] 8.12 10*3/uL Normal 3.70-11.00 [facility] Comment on above: Order Comment: Speci men Type: BLOOD SPECIMENOrdering Facility: [facility] Address: [address] [place] [address] Performed By: #### 5 7021-8 ####[facility] DONNADOYLESTOWNNCLIA [id number] [place] [address] [place] CNOVSPon 03-15-2024 OVS Visit (SP) Office (HEMAWS) IVCK ROMAN ([id number]) 1935 M Date Time Provider Department 03/15/24 [...] within constraints of artifact from dental amalgam. Education Reporter spaces appear normal. Infrahyoid Neck: Hypopharynx, larynx, [...] CD138 (B-A38) negative BCL-2 (bcl-2/100/D5) positive BCL-6 (RS405Q/A8) negative Cyclin D1/BCL-1 (SP4) negative MUM1 (MRQ-43) negative C-MYC (Y69) negative Mesick (polyclonal) negative Lambda (polyclonal) negative P53 (DO-7) [...] Date COLEC (more content not included)... Normal [facility] Comprehensive metabolic 2000 panelon 03-15-2024 Albumin [Mass/Vol] 4.2 g/dL Normal 3.9-4.9 [facility] Comment on above: Order Comment: Speci men Type: BLOOD SPECIMENOrdering Facility: [facility] Address: [address] [place] [address] Performed By: #### 2 4323-8 ####[facility] MILLWNCLIA [id number] [place] [address] [place] ALP [Catalytic activity/Vol] 86 U/L Normal 38-113 [facility] Comment on above: Order Comment: Speci men Type: BLOOD SPECIMENOrdering Facility: [facility] Address: [address] [place] [address] Performed By: #### 2 4323-8 ####[facility]PITALA [id number] [place] [address] [place] ALT [Catalytic activity/Vol] 28 U/L Normal 10-54 [facility] Comment on above: Order Comment: Speci men Type: BLOOD SPECIMENOrdering Facility: [facility] Address: [address] [place] [address] Performed By: #### 2 4323-8 ####[facility]ENTERLIA [id number] [place] [address] [place] Anion gap [Moles/Vol] 11 mmol/L Normal 8-15 [facility] Comment on above: Order Comment: Speci men Type: BLOOD SPECIMENOrdering Facility: [facility] Address: [address] [place] [address] Performed By: #### 2 4323-8 ####[facility]ENTERLIA [id number] [place] [address] [place] AST [Catalytic activity/Vol] 23 U/L Normal 14-40 [facility] Comment on above: Order Comment: Speci men Type: BLOOD SPECIMENOrdering Facility: [facility] Address: [address] [place] [address] Performed By: #### 2 4323-8 ####[facility] MILLTOWNCLIA [id number] [place] [address] [place] Bilirubin [Mass/Vol] 1.0 mg/dL Normal 0.2-1.3 [facility] Comment on above: Order Comment: Speci men Type: BLOOD SPECIMENOrdering Facility: [facility] Address: [address] [place] [address] Performed By: #### 2 4323-8 ####[facility] MILLTOWNCLIA [id number] [place] [address] [place] Calcium [Mass/Vol] 9.4 mg/dL Normal 8.5-10.2 [facility] Comment on above: Order Comment: Speci men Type: BLOOD SPECIMENOrdering Facility: [facility] Address: [address] [place] [address] Performed By: #### 2 4323-8 ####[facility]OSPITALWNCLIA [id number] [place] [address] [place] Chloride [Moles/Vol] 100 mmol/L Normal 98-107 [facility] Comment on above: Order Comment: Speci men Type: BLOOD SPECIMENOrdering Facility: [facility] Address: [address] [place] [address] Performed By: #### 2 4323-8 ####[facility] MILLTOWNCLIA [id number] [place] [address] [place] CO2 [Moles/Vol] 26 mmol/L Normal 22-30 [facility] Comment on above: Order Comment: Speci men Type: BLOOD SPECIMENOrdering Facility: [facility] Address: [address] [place] [address] Performed By: #### 2 4323-8 ####[facility] MILLTOWNCLIA [id number] [place] [address] [place] Creatinine [Mass/Vol] 0.87 mg/dL Normal 0.73-1.22 [facility] Comment on above: Order Comment: Vanna benítez Type: BLOOD SPECIMENOrdering Facility: [facility] Address: [address] [place] [address] Performed By: #### 2 4323-8 ####[facility] [id number] [place] [address] [place] Creatinine and Glomerular filtration rate.predicted panel (S/P/Bld) 84 mL/min/1.73m??? Normal >=60 [facility] Comment on above: Order Comment: Vanna benítez Type: BLOOD SPECIMENOrdering Facility: [facility] Address: [address] [place] [address] Result Comment: Renate mated Glomerular Filtration Rate [...] actual GFR. Performed By: #### 2 4323-8 ####[facility] [id number] [place] [address] [place] Glucose [Mass/Vol] 101 mg/dL High 74-99 [facility] Comment on above: Order Comment: Vanna benítez Type: BLOOD SPECIMENOrdering Facility: [facility] Address: [address] [place] [address] Result Comment: The [place] Diabetes Association (ADA) provides guidance for cutoff [...] Standards of Medical Care in Diabetes 2016, [place] [employer]. Diabetes Care. 2016.39(Suppl 1). Performed By: #### 2 4323-8 ####[facility] [id number] [place] [address] [place] Potassium [Moles/Vol] 4.0 mmol/L Normal 3.7-5.1 [facility] Comment on above: Order Comment: Speci men Type: BLOOD SPECIMENOrdering Facility: [facility] Address: [address] [place] [address] Performed By: #### 2 4323-8 ####[facility] [id number] [place] [address] [place] Protein [Mass/Vol] 7.1 g/dL Normal 6.3-8.0 [facility] Comment on above: Order Comment: Speci men Type: BLOOD SPECIMENOrdering Facility: [facility] Address: [address] [place] [address] Performed By: #### 2 4323-8 ####[facility] [id number] [place] [address] [place] Sodium [Moles/Vol] 137 mmol/L Normal 136-144 [facility] Comment on above: Order Comment: Speci men Type: BLOOD SPECIMENOrdering Facility: [facility] Address: [address] [place] [address] Performed By: #### 2 4323-8 ####[facility] [id number] [place] [address] [place] Urea nitrogen [Mass/Vol] 19 mg/dL Normal 9-24 [facility] Comment on above: Order Comment: Speci men Type: BLOOD SPECIMENOrdering Facility: [facility] Address: [address] [place] [address] [place] [address] Performed By: #### 2 4323-8 ####[facility] [id number] [place] [id number] [facility] CNOVon 12-29-2023 CNOV Office Visit (FAMPWS ) VICK ROMAN ([id number]) 1935 M Date Time Provider Department 12/29/23 10:00 AM [facility] FAMPWS During your visit today, we recorded the [...] Abs Lymph 1.00 - 4.00 k/uL 2.67 Woods% % 9.7 Abs Woods <0.87 k/uL 0.86 Eosin% % 1.9 Abs [...] 04/27/14: COLONOSCOPY VIA STOMA W OR W/O [facility] No date: PAST SURGICAL HISTORY OF Comment: [...] 124/66 Pulse 62 Ht 160 cm (5' 3") Wt 57.6 kg (127 lb) SpO2 96% [...] No deformities (more content not included)... Normal [facility] CNPNon 12-16-2023 CNPN Telephone (FAMPWS) VICK RAIN ([id number]) 1935 M Date Time Provider Department 12/16/23 [facility] During your visit today, we recorded the [...] Status:Closed by BECKY ALY on 12/16/23 Normal [facility] CBC W Auto Differential pane l (Bld)on 12-15-2023 Basophils (Bld) [#/Vol] 0.07 10*3/uL Normal <0.11 [facility] Comment on above: Order Comment: Speci men Type: BLOOD SPECIMENOrdering Facility: [facility] Address: [address] [place] [address] Performed By: #### 5 7021-8 ####[facility] [id number] [place] [address] [place] Basophils/100 WBC (Bld) 0.8 % Normal [facility] Comment on above: Order Comment: Speci men Type: BLOOD SPECIMENOrdering Facility: [facility] Address: [address] [place] [address] Performed By: #### 5 7021-8 ####[facility] [id number] [place] [address] [place] Differential cell count method Nom (Bld) Auto Normal [facility] Comment on above: Order Comment: Speci men Type: BLOOD SPECIMENOrdering Facility: [facility] Address: [address] [place] [address] Performed By: #### 5 7021-8 ####[facility] [id number] [place] [address] [place] Eosinophils (Bld) [#/Vol] 0.17 10*3/uL Normal <0.46 [facility] Comment on above: Order Comment: Speci men Type: BLOOD SPECIMENOrdering Facility: [facility] Address: [address] [place] [address] Performed By: #### 5 7021-8 ####[facility] JCARLOSWADAMLIA [id number] [place] [address] [place] Eosinophils/100 WBC (Bld) 1.9 % Normal [facility] Comment on above: Order Comment: Speci men Type: BLOOD SPECIMENOrdering Facility: [facility] Address: [address] [place] [address] Performed By: #### 5 7021-8 ####[facility] BABIESADAMLIA [id number] [place] [address] [place] Erythrocyte distribution width (RBC) [Ratio] 12.7 % Normal 11.5-15.0 [facility] Comment on above: Order Comment: Speci men Type: BLOOD SPECIMENOrdering Facility: [facility] Address: [address] [place] [address] Performed By: #### 5 7021-8 ####[facility] CENTERLIA [id number] [place] [address] [place] Hematocrit (Bld) [Volume fraction] 41.6 % Normal 39.0-51.0 [facility] Comment on above: Order Comment: Speci men Type: BLOOD SPECIMENOrdering Facility: [facility] Address: [address] [place] [address] Performed By: #### 5 7021-8 ####[facility] DONNADOYLESTOWNNCLIA [id number] [place] [address] [place] Hemoglobin (Bld) [Mass/Vol] 13.9 g/dL Normal 13.0-17.0 [facility] Comment on above: Order Comment: Speci men Type: BLOOD SPECIMENOrdering Facility: [facility] Address: [address] [place] [address] Performed By: #### 5 7021-8 ####[facility] BABIESNCLIA [id number] [place] [address] [place] Immature granulocytes (Bld) [#/Vol] 0.03 10*3/uL Normal <0.10 [facility] Comment on above: Order Comment: Speci men Type: BLOOD SPECIMENOrdering Facility: [facility] Address: [address] [place] [address] Performed By: #### 5 7021-8 ####[facility] HOSPITALA [id number] [place] [address] [place] Immature granulocytes/100 WBC (Bld) 0.3 % Normal [facility] Comment on above: Order Comment: Speci men Type: BLOOD SPECIMENOrdering Facility: [facility] Address: [address] [place] [address] Performed By: #### 5 7021-8 ####[facility] BABIESNCLI [id number] [place] [address] [place] Lymphocytes (Bld) [#/Vol] 2.67 10*3/uL Normal 1.00-4.00 [facility] Comment on above: Order Comment: Speci men Type: BLOOD SPECIMENOrdering Facility: [facility] Address: [address] [place] [address] Performed By: #### 5 7021-8 ####[facility] CENTERLIA [id number] [place] [address] [place] Lymphocytes/100 WBC (Bld) 30.0 % Normal [facility] Comment on above: Order Comment: Speci men Type: BLOOD SPECIMENOrdering Facility: [facility] Address: [address] [place] [address] Performed By: #### 5 7021-8 ####[facility] BABIESNCLIA [id number] [place] [address] [place] MCH (RBC) [Entitic mass] 30.9 pg Normal 26.0-34.0 [facility] Comment on above: Order Comment: Speci men Type: BLOOD SPECIMENOrdering Facility: [facility] Address: [address] [place] [address] Performed By: #### 5 7021-8 ####[facility] DONNAWNCLIA [id number] [place] [address] [place] MCHC (RBC) [Mass/Vol] 33.4 g/dL Normal 30.5-36.0 [facility] Comment on above: Order Comment: Speci men Type: BLOOD SPECIMENOrdering Facility: [facility] Address: [address] [place] [address] Performed By: #### 5 7021-8 ####[facility] BABIESNCLIA [id number] [place] [address] [place] MCV (RBC) [Entitic vol] 92.4 fL Normal 80.0-100.0 [facility] Comment on above: Order Comment: Speci men Type: BLOOD SPECIMENOrdering Facility: [facility] Address: [address] [place] [address] Performed By: #### 5 7021-8 ####[facility] BABIESNCLIA [id number] [place] [address] [place] Monocytes (Bld) [#/Vol] 0.86 10*3/uL Normal <0.87 [facility] Comment on above: Order Comment: Speci men Type: BLOOD SPECIMENOrdering Facility: [facility] Address: [address] [place] [address] Performed By: #### 5 7021-8 ####[facility] BABIESNCLIA [id number] [address] [place] Monocytes/100 WBC (Bld) 9.7 % Normal [facility] Comment on above: Order Comment: Speci men Type: BLOOD SPECIMENOrdering Facility: [facility] Address: [address] [place] [address] Performed By: #### 5 7021-8 ####[facility] MILLTOWNCLIA [id number] [place] [address] [place] Neutrophils (Bld) [#/Vol] 5.10 10*3/uL Normal 1.45-7.50 [facility] Comment on above: Order Comment: Speci men Type: BLOOD SPECIMENOrdering Facility: [facility] Address: [address] [place] [address] Performed By: #### 5 7021-8 ####[facility] MILLWNCLIA [id number] [place] [address] [place] Neutrophils/100 WBC (Bld) 57.3 % Normal [facility] Comment on above: Order Comment: Speci men Type: BLOOD SPECIMENOrdering Facility: [facility] Address: [address] [place] [address] Performed By: #### 5 7021-8 ####[facility] CENTERLIA [id number] [place] [address] [place] Nucleated RBC (Bld) [#/Vol] 10*3/uL Normal <0.01 [facility] Comment on above: Order Comment: Speci men Type: BLOOD SPECIMENOrdering Facility: [facility] Address: [address] [place] [address] Performed By: #### 5 7021-8 ####[facility] MILLTOWNCLIA [id number] [place] [address] [place] Nucleated RBC/100 WBC (Bld) [Ratio] 0.0 /100 WBC Normal [facility] Comment on above: Order Comment: Speci men Type: BLOOD SPECIMENOrdering Facility: [facility] Address: [address] [place] [address] Performed By: #### 5 7021-8 ####[facility] MILLWNCLIA [id number] [place] [address] [place] Platelet mean volume (Bld) [Entitic vol] 9.9 fL Normal 9.0-12.7 [facility] Comment on above: Order Comment: Speci men Type: BLOOD SPECIMENOrdering Facility: [facility] Address: [address] [place] [address] Performed By: #### 5 7021-8 ####[facility] DONNADOYLESTOWNADAMXIMENAA [id number] [place] [address] [place] Platelets (Bld) [#/Vol] 231 10*3/uL Normal 150-400 [facility] Comment on above: Order Comment: Speci men Type: BLOOD SPECIMENOrdering Facility: [facility] Address: [address] [place] [address] Performed By: #### 5 7021-8 ####[facility] & BABIESNCXIMENACody [id number] [place] [address] [place] RBC (Bld) [#/Vol] 4.50 10*6/uL Normal 4.20-6.00 [facility] Comment on above: Order Comment: Speci men Type: BLOOD SPECIMENOrdering Facility: [facility] Address: [address] [place] [address] Performed By: #### 5 7021-8 ####[facility] & BABIESNCXIMENAA [id number] [place] [address] [place] WBC (Bld) [#/Vol] 8.90 10*3/uL Normal 3.70-11.00 [facility] Comment on above: Order Comment: Speci men Type: BLOOD SPECIMENOrdering Facility: [facility] Address: [address] [place] [address] Performed By: #### 5 7021-8 ####[facility] & BABIESNCLIA [id number] [place] [address] [place] CNOVSPon 12-15-2023 CNOVSP Visit (SP) Office (HEMAWS) VICK ROMAN ([id number]) 1935 M Date Time Provider Department 12/15/23 [...] within constraints of artifact from dental amalgam. Education Reporter spaces appear normal. Infrahyoid Neck: Hypopharynx, larynx, [...] CD138 (B-A38) negative BCL-2 (bcl-2/100/D5) positive BCL-6 (CU670G/A8) negative Cyclin D1/BCL-1 (SP4) negative MUM1 (MRQ-43) negative C-MYC (Y69) negative Mesick (polyclonal) negative Lambda (polyclonal) negative P53 (DO-7) [...] COLECTOMY P (more content not included)... Normal [facility] Comprehensive metabolic 2000 panelon 12-15-2023 Albumin [Mass/Vol] 4.3 g/dL Normal 3.9-4.9 [facility] Comment on above: Order Comment: Speci men Type: BLOOD SPECIMENOrdering Facility: [facility] Address: [address] [place] [address] Performed By: #### 2 532-0, 83134-9 ####[facility] [id number] [place] [address] [place] ALP [Catalytic activity/Vol] 83 U/L Normal 38-113 [facility] Comment on above: Order Comment: Speci men Type: BLOOD SPECIMENOrdering Facility: [facility] Address: [address] [place] [address] Performed By: #### 2 532-0, 98387-6 ####[facility] [id number] [place] [address] [place] ALT [Catalytic activity/Vol] 17 U/L Normal 10-54 [facility] Comment on above: Order Comment: Speci men Type: BLOOD SPECIMENOrdering Facility: [facility] Address: [address] [place] [address] Performed By: #### 2 532-0, 15448-3 ####[facility] MILLTOWNCLIA [id number] [place] [address] [place] Anion gap [Moles/Vol] 8 mmol/L Normal 8-15 [facility] Comment on above: Order Comment: Speci men Type: BLOOD SPECIMENOrdering Facility: [facility] Address: [address] [place] [address] Performed By: #### 2 532-0, 18366-9 ####[facility] MILLTOWNCLIA [id number] [place] [address] [place] AST [Catalytic activity/Vol] 16 U/L Normal 14-40 [facility] Comment on above: Order Comment: Speci men Type: BLOOD SPECIMENOrdering Facility: [facility] Address: [address] [place] [address] Performed By: #### 2 532-0, 79552-1 ####[facility] MILLTOWNCLIA [id number] [place] [address] [place] Bilirubin [Mass/Vol] 0.7 mg/dL Normal 0.2-1.3 [facility] Comment on above: Order Comment: Speci men Type: BLOOD SPECIMENOrdering Facility: [facility] Address: [address] [place] [address] Performed By: #### 2 532-0, 16355-6 ####[facility] MILLTOWNCLIA [id number] [place] [address] [place] Calcium [Mass/Vol] 9.5 mg/dL Normal 8.5-10.2 [facility] Comment on above: Order Comment: Speci men Type: BLOOD SPECIMENOrdering Facility: [facility] Address: [address] [place] [address] Performed By: #### 2 532-0, 66643-0 ####[facility] MILLTOWNCLIA [id number] [place] [address] [place] Chloride [Moles/Vol] 103 mmol/L Normal 98-107 [facility] Comment on above: Order Comment: Speci men Type: BLOOD SPECIMENOrdering Facility: [facility] Address: [address] [place] [address] Performed By: #### 2 532-0, 83133-1 ####[facility] [id number] [place] [address] [place] CO2 [Moles/Vol] 28 mmol/L Normal 22-30 [facility] Comment on above: Order Comment: Speci men Type: BLOOD SPECIMENOrdering Facility: [facility] Address: [address] [place] [address] Performed By: #### 2 532-0, 98679-4 ####[facility] [id number] [place] [address] [place] [facility] Creatinine [Mass/Vol] 0.83 mg/dL Normal 0.73-1.22 [facility] Comment on above: Order Comment: Speci men Type: BLOOD SPECIMENOrdering Facility: [facility] Address: [address] [place] [address] Performed By: #### 2 532-0, 34098-9 ####[facility] HOSPITALA [id number] [place] [address] [place] [facility] Creatinine and Glomerular filtration rate.predicted panel (S/P/Bld) 85 mL/min/1.73m??? Normal >=60 [facility] Comment on above: Order Comment: Speci men Type: BLOOD SPECIMENOrdering Facility: [facility] Address: [address] [place] [address] Result Comment: Renate mated Glomerular Filtration Rate [...] actual GFR. Performed By: #### 2 532-0, 54803-7 ####[facility] DONNAMAMINCSIRISHA [id number] [place] [address] [place] Glucose [Mass/Vol] 102 mg/dL High 74-99 [facility] Comment on above: Order Comment: Vanna benítez Type: BLOOD SPECIMENOrdering Facility: [facility] Address: [address] [place] [address] Result Comment: The [place] Diabetes [employer] (ADA) provides guidance for cutoff [...] Standards of Medical Care in Diabetes 2016, [place] [employer]. Diabetes Care. 2016.39(Suppl 1). Performed By: #### 2 532-0, 36002-0 ####[facility] & BABIESNCXIMENAA [id number] [place] [address] [place] Potassium [Moles/Vol] 4.3 mmol/L Normal 3.7-5.1 [facility] Comment on above: Order Comment: Vanna benítez Type: BLOOD SPECIMENOrdering Facility: [facility] Address: [address] [place] [id number] Performed By: #### 2 532-0, 73134-1 ####[facility] & BABIESNCXIMENAA [id number] [place] [address] [place] Protein [Mass/Vol] 7.2 g/dL Normal 6.3-8.0 [facility] Comment on above: Order Comment: Speci men Type: BLOOD SPECIMENOrdering Facility: [facility] Address: [address] [place] [address] Performed By: #### 2 532-0, 74652-9 ####[facility] BABIESNCLAKEVIEW H[facility] [id number] [place] [address] [place] Sodium [Moles/Vol] 139 mmol/L Normal 136-144 [facility] Comment on above: Order Comment: Speci men Type: BLOOD SPECIMENOrdering Facility: [facility] Address: [address] [place] [address] Performed By: #### 2 532-0, 77273-8 ####[facility] [id number] [place] [address] [place] Urea nitrogen [Mass/Vol] 20 mg/dL Normal 9-24 [facility] Comment on above: Order Comment: Speci men Type: BLOOD SPECIMENOrdering Facility: [facility] Address: [address] [place] [address] Performed By: #### 2 532-0, 05506-8 ####[facility] [id number] [place] [address] [place] HbA1c (Bld)on 12-15-2023 Average glucose Estimated from glycated hemoglobin (Bld) [Mass/Vol] 117 mg/dL Normal [facility] Comment on above: Order Comment: Speci men Type: BLOOD SPECIMENOrdering Facility: [facility] Address: [address] [place] [address] Result Comment: eAG: (Estimated average glucose) is a calculated value from HgbA1c and is outbound call center representative of the average blood glucose level in the last 2-3 month period. Performed By: #### 5 5454-3 ####[facility] LABCLIA [id number] [facility] [id number] [place] [address] [place] HbA1c (Bld) [Mass fraction] 5.7 % High 4.3-5.6 [facility] Comment on above: Order Comment: Vanna jackelin Type: BLOOD SPECIMENOrdering Facility: [facility] Address: [address] [place] [id number] Result Comment: [place] Diabetes Association guidelines indicate that patients with HgbA1c in the range 5.7-6.4% are at increased risk for development of diabetes, and intervention by lifestyle modification may be beneficial. HgbA1c greater or equal to 6.5% is considered diagnostic of diabetes. Performed By: #### 5 5454-3 ####[facility] LABCLIA [id number] [facility] [address] [place] [id number] [place] LDH SerPl-cCncon 12-15-2023 LDH [Catalytic activity/Vol] 141 U/L Normal 135-225 [facility] Comment on above: Order Comment: Vanna benítez Type: BLOOD SPECIMENOrdering Facility: [facility] Address: [address] [place], [place] [address] [address] Performed By: #### 2 532-0, 62446-4 ####[facility] [id number] [place] [address] [place] CNOVSPon 09-22-2023 CNOVSP Visit (SP) Office (HEMAWS) VICK ROMAN ([id number]) 1935 M Date Time Provider Department 09/22/23 [...] within constraints of artifact from dental amalgam. Education Reporter spaces appear normal. Infrahyoid Neck: Hypopharynx, larynx, [...] CD138 (B-A38) negative BCL-2 (bcl-2/100/D5) positive BCL-6 (FO914E/A8) negative Cyclin D1/BCL-1 (SP4) negative MUM1 (MRQ-43) negative C-MYC (Y69) negative Mesick (polyclonal) negative Lambda (polyclonal) negative P53 (DO-7) [...] Date COLECTOM (more content not included)... Normal [facility] CT BX RIB/PELV/CONTRERAS/SPINE P ROCon 09-09-2023 CT BX RIB/PELV/CONTRERAS/SPINE PROC * * *Final Report* * * DATE OF EXAM: Sep 09 2023 10:51AM [facility] [place] 2036 - CT BX RIB/PELV/CONTRERAS/SPINE PROC / [...] posterior iliac bone lesion biopsy as described. 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: PSCB Transcribe Date/Time: Sep 09 2023 2:15P Dictated by : GAVIN TROY DO This examination was interpreted and the report reviewed and electronically signed by: GAVIN TROY DO on Sep 09 2023 2:21PM EST [id number] Normal [facility] HISTORY PHYSICALon HISTORY PHYSICAL HNO ID: [id number] Author: GAVIN TROY DO Service: Radiology Author [...] September 09, 2023 TIME: 9:59 AM Normal [facility] NURSING PROGon 09-09-2023 NURSING PROG HNO ID: [id number] Author: PETER NEUMANN, RN Service: Nursing Author Type: Registered Nurse Type: Nursing Progress Note Filed: 09/09/2023 11:05 Note Text: On arrival to Phase II patient has hematoma to incision site on right buttocks. Dr. Troy aware and states to continue to monitor patient for bleeding. Normal [facility] PT panel Coag (PPP)on 2023 INR Coag (PPP) [Relative time] 1.0 {INR} Normal 0.9-1.3 [facility] Comment on above: Order Comment: Vanna benítez Type: BLOOD SPECIMEN Ordering Facility: [facility] Address: [address] [place] [address] Result Comment: Sherry min K Antagonist (VKA) Therapeutic Range: INR 2 to 3 (Target INR of 2.5) Note: For patients treated with VKA drugs, such as warfarin, the [employer] 2012 Guideline recommends [...] GH, et al. Chest 2012, 141:7S-47S Rolan FLYNN et al. [facility] 2017, 70: 252-289 Performed By: #### 3 4528-0 #### [facility] CLIA [id number] [address] [place] [address] [place] PT Coag (PPP) [Time] 11.2 s Normal 9.7-13.0 [facility] Comment on above: Order Comment: Vanna benítez Type: BLOOD SPECIMEN Ordering Facility: [facility] Address: [address] [place] [address] Performed By: #### 3 4528-0 #### [facility] CLIA [id number] [address] OF [facility] SURGICAL PATHOLOGYon 024 CASE REPORT Normal [facility] Comment on above: Order Comment: Vanna benítez Type: TISSUE SPECIMEN Ordering Facility: [facility] Address: [address] [place] [address] Result Comment: Surg ical Pathology Report Case: [id number] Authorizing Provider: Gavin Troy DO, DO Collected: 09/09/2023 10:30 AM Ordering Location: [facility] Radiology Received: 09/09/2023 11:48 AM Pathologist: Seymour Hyde MD, PhD Specimen: Bone, Biopsy, right iliac bone biopsy Performed By: #### S #### [facility] CLIA [id number] [address] [place] [address] [place] CLINICAL HISTORY Hx of Lymphoma. FDG avid RIGHT posterior iliac bone lesion. 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 Areas of diffuse large B-cell lymphoma are not identified in the sampled material. Clinical correlation is suggested. Laboratory Developed Test (LDT) Disclaimer: Performance characteristics of immunohistochemical, immunofluorescent and chromogenic in-situ hybridization tests have been determined by the performing laboratory within [facility]???s Yoseph Quesada Pathology and Laboratory Medicine Department ([facility], [facility], [facility], [facility], [facility], [facility], or [facility]) in a manner consistent with CLIA requirements. One or more of these tests have not been cleared or approved by the FDA. [facility] is regulated under CLIA as qualified to perform high-complexity testing. These tests are used for clinical purposes. They should not be regarded as investigational or for research. Positive and negative controls stain appropriately. 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 (see comment) [facility] 09/17/2023 Performed By: #### S #### [facility] CLIA [id number] [address] [place] [address] STATES OF [facility] FINAL PERFORMING LAB Normal [facility] Comment on above: Order Comment: Speci men Type: TISSUE SPECIMEN Ordering Facility: [facility] Address: [address] [place] [address] Result Comment: Diag nostic interpretation performed at [facility], [address] [place] [address] CLIA# [id number] [facility] Teacher: Simone Gonsales M.D. Performed By: #### S #### [facility] CLIA [id number] [address] [place] [address] [place] GROSS DESCRIPTION A. Bone, Biopsy Normal [facility] Comment on above: Order Comment: Speci men Type: TISSUE SPECIMEN Ordering Facility: [facility] Address: [address] [place] [address] Result Comment: Rece ived in formalin labeled "bone, iliac, right biopsy" is a cylindrical segment of landeros soft bone and hemorrhagic material measuring 2.5 x 1.6 x 0.3 cm. Totally submitted in cassette A1 following light decalcification. Gross examination performed at [facility], [address] [place] [address] CLIA# [id number] [facility] 09/09/23 3:34 PM Performed By: #### S #### [facility] IA [id number] [address] [place] [address] MICROSCOPIC DESCRIPTION The histologic sections demonstrate a [...] cells in the areas of uninvolved hematopoiesis. [facility] Comment on above: Order Comment: Speci men Type: TISSUE SPECIMEN Ordering Facility: [facility] Address: [address] [place] [address] Performed By: #### S #### [facility] IA [id number] [address] [place] [address] [place] Arya 09-03-2023 TRUMAN Telephone (BAILEER) VICK ROMAN ([id number]) 1935 M Date Time Provider Department 09/03/23 DENISE MCKENZIE During your visit today, we recorded the following information about you: Allergies As of Date: 09/03/2023 (No Known Allergies) Date Reviewed: 08/27/2023 Reviewed by: Veena Alvarenga Ma, MA - Fully Assessed Reason for Visit: Appointment [...] Encounter Status:Closed by DENISE MCKENZIE on 06/30/24 [facility] CNPN Telephone (MEXR) VICK ROMAN ([id number]) 1935 M Date Time Provider Department 08/27/23 ALEAH RYAN MEXR During your visit today, we recorded the following information about you: Aleah Ryan 08/27/2023 9:22 AM Signed Received request for bone biopsy at [facility]. Sending to radiologist for approval. Allergies As of Date: 08/27/2023 (No Known Allergies) Date Reviewed: 08/27/2023 Reviewed by: Veena Alvarenga Ma, MA - Fully Assessed Reason for Visit: Scheduling [3921] Cmt: Bone Biopsy Prescriptions as of 03/16/2024 [...] of lymphoma [Z85.72] 06/30/2023 Encounter Status:Closed by ALEAH RYAN on 03/16/24 Normal [facility] NM PET/CT SKULL-THIGH INITon 08-24-2023 NM PET/CT [...] * Radiopharmaceutical Dose: 7.1 mCi * Radiopharmaceutical: D48-Emhefxjtfjxfbjxqxj (FDG) COMPARISON: No previous FDG PET/CT available CORRELATION: 07/06/[address] report RESULT: REFERENCES: SUV reference values: * Blood pool (descending aorta) activity: SUVmax 2.2 * Background liver activity: SUVmax 3.9; SUVmean 2.9 Yoga Coordinator (topogram) images: No additional findings. Notes and [...] (more content not included)... Invalid Interpretation Code [facility] CBC W Auto Differential pane l (Bld)on 08-09-2023 Basophils (Bld) [#/Vol] 0.09 10*3/uL <0.11 k/uL [facility] Basophils/100 WBC (Bld) 1.1 % [facility] Differential cell count method Nom (Bld) Auto [facility] Eosinophils (Bld) [#/Vol] 0.37 10*3/uL <0.46 k/uL [facility] Eosinophils/100 WBC (Bld) 4.7 % [facility] Erythrocyte distribution width (RBC) [Ratio] 12.5 % 11.5 - 15.0 % [facility] Hematocrit (Bld) [Volume fraction] 42.6 % 39.0 - 51.0 % [facility] Hemoglobin (Bld) [Mass/Vol] 14.3 g/dL 13.0 - 17.0 g/dL [facility] Immature granulocytes (Bld) [#/Vol] <0.10 k/uL [facility] Immature granulocytes/100 WBC (Bld) 0.3 % [facility] Lymphocytes (Bld) [#/Vol] 3.01 10*3/uL 1.00 - 4.00 k/uL [facility] Lymphocytes/100 WBC (Bld) 37.9 % [facility] MCH (RBC) [Entitic mass] 31.1 pg 26.0 - 34.0 pg [facility] MCHC (RBC) [Mass/Vol] 33.6 g/dL 30.5 - 36.0 g/dL [facility] MCV (RBC) [Entitic vol] 92.6 fL 80.0 - 100.0 fL [facility] Monocytes (Bld) [#/Vol] 0.73 10*3/uL <0.87 k/uL [facility] Monocytes/100 WBC (Bld) 9.2 % [facility] Neutrophils (Bld) [#/Vol] 3.72 10*3/uL 1.45 - 7.50 k/uL [facility] Neutrophils/100 WBC (Bld) 46.8 % [facility] Nucleated RBC (Bld) [#/Vol] <0.01 k/uL [facility] Nucleated RBC/100 WBC (Bld) [Ratio] 0.0 /100 WBC [facility] Platelet mean volume (Bld) [Entitic vol] 10.2 fL 9.0 - 12.7 fL [facility] Platelets (Bld) [#/Vol] 220 10*3/uL 150 - 400 k/uL [facility] RBC (Bld) [#/Vol] 4.60 10*6/uL 4.20 - 6.0 0 m/uL [facility] WBC (Bld) [#/Vol] 7.94 10*3/uL 3.70 - 11. 00 k/uL [facility] Comprehensive metabolic 2000 panelon 08-09-2023 Albumin [Mass/Vol] 4.5 g/dL 3.9 - 4.9 g/dL [facility] ALP [Catalytic activity/Vol] 94 U/L 38 - 113 U/L [facility] ALT [Catalytic activity/Vol] 21 U/L 10 - 54 U/L [facility] Anion gap [Moles/Vol] 9 mmol/L 9 - 18 mmol/L [facility] AST [Catalytic activity/Vol] 17 U/L 14 - 40 U/L [facility] Bilirubin [Mass/Vol] 0.9 mg/dL 0.2 - 1 .3 mg/dL [facility] Calcium [Mass/Vol] 10.1 mg/dL 8.5 - 10. 2 mg/dL [facility] Chloride [Moles/Vol] 100 mmol/L 97 - 10 5 mmol/L [facility] CO2 [Moles/Vol] 28 mmol/L 22 - 30 mmol/L [facility] Creatinine [Mass/Vol] 0.93 mg/dL 0.73 - 1.22 mg/dL [facility] Estimated Glomerular Filtration Rate 79 mL/min/1.73m >=60 mL/min/1.73m [facility] Glucose [Mass/Vol] 108 mg/dL High 74 - 99 mg/dL [facility] Potassium [Moles/Vol] 4.0 mmol/L 3.7 - 5.1 mmol/L [facility] Protein [Mass/Vol] 7.7 g/dL 6.3 - 8.0 g/dL [facility] Sodium [Moles/Vol] 137 mmol/L 136 - 144 mmol/L [facility] Urea nitrogen [Mass/Vol] 20 mg/dL 9 - 24 mg/dL [facility] LD LACTATE DEHYDROon 024 LDH [Catalytic activity/Vol] 156 U/L 135 - 225 U/L [facility] URIC ACID BLOODon 08-09-2023 Urate [Mass/Vol] 5.1 mg/dL 4.0 - 8.1 mg/dL [facility] CT NECK SOFT TISSUE W IVCONo n 06-18-2023 [facility] HbA1c (Bld)on 06-17-2023 Average glucose Estimated from glycated hemoglobin (Bld) [Mass/Vol] 120 mg/dL [facility] HbA1c (Bld) [Mass fraction] 5.8 % High 4.3 - 5.6 % [facility] XR Chest PA and Lateralon IMPRESSION: No acute radiographic abnormality. 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: PSCB Transcribe Date/Time: Dec 22 2022 4:56P Dictated by : MARÍA ELENA BLUM MD This examination was interpreted and the report reviewed and electronically signed by: MARÍA ELENA BLUM MD on Dec 22 2022 4:57PM [facility] DIVISION OF RADIOLOGY * * *Final Report* [...] the dorsal spine. DIVISION OF RADIOLOGY Provider, [facility] Anita [facility] - 12/22/2022 * * *Final Report* [...] spine. IMPRESSION IMPRESSION: No acute radiographic abnormality. 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: PHILLIP Transcribe Date/Time: Dec 22 2022 4:56P Dictated by : MARÍA ELENA BLUM MD This examination was interpreted and the report reviewed and electronically signed by: MARÍA ELENA BLUM MD on Dec 22 2022 4:57PM EST [facility] Radiology Study observation (narrative) Vannesa rapp [facility] XR Chest PA and LateralOrder ed By: [facility] Provider on 12-22-2022 [facility] Basophil percentageOrdered B y: Anna Gonzalez on 12-08-2022 Creatinine [Mass/Vol] 1.0 mg/dL 0.70-1.[address] [facility] No Panel InformationOrdered By: Anna Goznalez on 12-08-2022 Bedside Estimated GFR (eGFR) > 60.0000 mL/min >60 [facility] XR Chest PA and Lateralon IMPRESSION: Bilateral lower lobes infiltrates as described above. A follow-up exam is recommended. 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: PHILLIP Transcribe Date/Time: Nov 21 2022 4:33A Dictated by : JENNIFER REED MD This examination was interpreted and the report reviewed and electronically signed by: JENNIFER REED MD on Nov 21 2022 4:34AM [facility] DIVISION OF RADIOLOGY * * *Final Report* [...] soft tissues: Unremarkable. DIVISION OF RADIOLOGY Provider, Kristen Anita [facility] - 11/21/2022 * * *Final Report* [...] described above. A follow-up exam is recommended. 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: PHILLIP Transcribe Date/Time: Nov 21 2022 4:33A Dictated by : JENNIFER REED MD This examination was interpreted and the report reviewed and electronically signed by: JENNIFER REED MD on Nov 21 2022 4:34AM EST [facility] XR Chest PA and LateralOrder ed By: Ccf Provider on 11-21-2022 [facility] XR Chest PA and Lateralon Radiology Study observation (narrative) [facility] Absolute lymphocyte countOrd ered By: Nitin Carney on 10-02-2022 Lymphocytes Auto (Unsp spec) [#/Vol] 1.86 10*3/uL 0.83-4.51 [facility] Basophil percentageOrdered B y: Nitin Carney on 10-02-2022 Basophils/100 WBC (Bld) 1.1 % 0-1 [facility] Chloride [Moles/Vol] 108 mmol/L 98-107 [facility] Eosinophils/100 WBC (Bld) 3.6 % 0-5 [facility] Glucose [Mass/Vol] 93 mg/dL 74-106 [facility] Neutrophils (Bld) [#/Vol] 3.7 10*3/uL 2.0-7.7 [facility] Neutrophils/100 WBC (Bld) 56.5 % 47-70 [facility] Potassium [Moles/Vol] 3.9 mmol/L 3.5-5.[address] [facility] Sodium [Moles/Vol] 140 mmol/L 136-145 [facility] WBC (Bld) [#/Vol] 6.5 10*3/uL 4.4-11.0 [facility] Blood erythrocytes count (nu mber/volume)Ordered By: Nitin Carney on 10-02-2022 RBC (Bld) [#/Vol] 4.52 10*6/uL 4.6-6.2 [facility] Blood hemoglobin measurement (mass/volume)Ordered By: Nitin Carney on 10-02-2022 Hemoglobin (Bld) [Mass/Vol] 14.2 g/dL 13.0-16.5 [facility] Blood lymphocytes/100 leukoc ytesOrdered By: Nitin Carney on 10-02-2022 Lymphocytes/100 WBC (Bld) 28.8 % 19-41 [facility] Blood monocytes/100 leukocyt esOrdered By: Nitin Carney on 10-02-2022 Monocytes/100 WBC (Bld) 9.8 % 0-10 [facility] Blood platelet mean volumeOr dered By: Nitin Carney on 10-02-2022 Platelet mean volume (Bld) [Entitic vol] 10.6 fL 6.2-12.0 [facility] Determination of erythrocyte mean corpuscular volume (MCV)Ordered By: Nitin Carney on 10-02-2022 MCV (RBC) [Entitic vol] 94.7 fL 80-94 [facility] Hematocrit Auto (Bld) [Volum e fraction]Ordered By: Nitin Craney on 10-02-2022 Hematocrit (Bld) [Volume fraction] 42.8 % 40-54 [facility] Laboratory - Chemistry and C hemistry - challengeOrdered By: Nitin Carney on 10-02-2022 CO2 [Moles/Vol] 27.0 mmol/L 21.0-32.0 [facility] Urea nitrogen/Creatinine [Mass ratio] 19.1 mg/mg 10-20 [facility] Laboratory - Hematology and Cell countsOrdered By: Nitin Carney on 10-02-2022 Erythrocyte distribution width (RBC) [Entitic vol] 42.8 fL 35.1-43.9 [facility] Erythrocyte distribution width (RBC) [Ratio] 12.3 % 11.6-14.6 [facility] Immature granulocytes/100 WBC (Bld) 0.200 % 0.0-0.9 [facility] Comment on above: IG% - Immature Granu locytes (promyelocytes, myelocytes and metamyelocytes) > 1% indicates that a LEFT SHIFT is Present. MCH (RBC) [Entitic mass] 31.4 pg 27.0-32.0 [facility] Nucleated RBC/100 WBC (Bld) [Ratio] 0 % 0-5 [facility] MCHC Auto (RBC) [Mass/Vol]Or dered By: Nitin Carney on 10-02-2022 MCHC (RBC) [Mass/Vol] 33.2 g/dL 32-[address] [facility] No Panel InformationOrdered By: Nitin Carney on 10-02-2022 Estimated Creatinine Clearance Calc 47.05 ml/min [facility] Estimated GFR (MDRD) Amer 98 mL/min >60 [facility] Comment on above: GFR Calc Estimated GFR (MDRD) Non-Af Amer 81 mL/min >60 [facility] Comment on above: Non- GFR Calc Platelets bldOrdered By: Citlaly Carney on 10-02-2022 Platelets (Bld) [#/Vol] 216 10*3/uL 150-450 [facility] Serum or plasma calcium yasmeen urement (mass/volume)Ordered By: Nitin Carney on 10-02-2022 Calcium [Mass/Vol] 9.2 mg/dL 8.5-10.1 [facility] Serum or plasma creatinine m easurement (mass/volume)Ordered By: Nitin Carney on 10-02-2022 Creatinine [Mass/Vol] 0.94 mg/dL 0.70-1.[address] [facility] Comment on above: The validity of the calculated GFR & GFRAA in patients over 70 years has not been determined. Clinical correlation is essential. Serum or plasma urea nitroge n measurement (mass/volume)Ordered By: Nitin Carney on 10-02-2022 Urea nitrogen [Mass/Vol] 18 mg/dL 7-18 [facility] Thin prep Papanicolaou smear with manual screeningOrdered By: Nitin Carney on 10-02-2022 Thin prep Papanicolaou smear with manual screening 5 5-15 [facility] Absolute lymphocyte countOrd ered By: Ledy Villatoro on 06-15-2022 Lymphocytes Auto (Unsp spec) [#/Vol] 1.93 10*3/uL 0.83-4.51 [facility] Basophil percentageOrdered B y: Ledy Villatoro on 06-15-2022 Basophil percentage 0 SEEN /hpf 0-5 [facility] Basophils/100 WBC (Bld) 0.4 % 0-1 [facility] Bilirubin [Mass/Vol] 0.70 mg/dL 0.20-1.00 [facility] Comment on above: For patients on eltr ombopag therapy, use of Dimension [place] TBIL is not recommended. Chloride [Moles/Vol] 104 mmol/L 98-107 [facility] Eosinophils/100 WBC (Bld) 0.2 % 0-5 [facility] Glucose [Mass/Vol] 119 mg/dL 74-106 [facility] Comment on above: Fasting Glucose resu lt from 100 to 125 mg/dL suggests IMPAIRED HOMEOSTASIS per A.D.A. criteria. Neutrophils (Bld) [#/Vol] 2.5 10*3/uL 2.0-7.7 [facility] Neutrophils/100 WBC (Bld) 47.9 % 47-70 [facility] Potassium [Moles/Vol] 4.0 mmol/L 3.5-5.[address] [facility] Protein [Mass/Vol] 7.3 g/dL 6.4-8.2 [facility] Sodium [Moles/Vol] 138 mmol/L 136-145 [facility] WBC (Bld) [#/Vol] 5.3 10*3/uL 4.4-11.0 [facility] Bilirubin Test strip Ql (U)O rdered By: Ledy Villatoro on 06-15-2022 Bilirubin Ql (U) Negative Negative [facility] Blood erythrocytes count (nu mber/volume)Ordered By: Ledy Villatoro on 06-15-2022 RBC (Bld) [#/Vol] 4.66 10*6/uL 4.6-6.2 [facility] Blood hemoglobin measurement (mass/volume)Ordered By: Ledy Villatoro on 06-15-2022 Hemoglobin (Bld) [Mass/Vol] 14.5 g/dL 13.0-16.5 [facility] Blood lymphocytes/100 leukoc ytesOrdered By: Ledy Villatoro on 06-15-2022 Lymphocytes/100 WBC (Bld) 36.4 % 19-41 [facility] Blood monocytes/100 leukocyt esOrdered By: Ledy Villatoro on 06-15-2022 Monocytes/100 WBC (Bld) 14.7 % 0-10 [facility] Blood platelet mean volumeOr dered By: Ledy Villatoro on 06-15-2022 Platelet mean volume (Bld) [Entitic vol] 11.1 fL 6.2-12.0 [facility] Determination of erythrocyte mean corpuscular volume (MCV)Ordered By: Ledy Villatoro on 06-15-2022 MCV (RBC) [Entitic vol] 95.1 fL 80-94 [facility] Hematocrit Auto (Bld) [Volum e fraction]Ordered By: Ledy Villatoro on 06-15-2022 Hematocrit (Bld) [Volume fraction] 44.3 % 40-54 [facility] INR in Blood by Coagulation assayOrdered By: Ledy Villatoro on 06-15-2022 INR Coag (Bld) [Relative time] 1.0 {INR} [facility] Ketones Test strip Ql (U)Ord ered By: Ledy Villatoro on 06-15-2022 Ketones Ql (U) 5 mg/dl Negative [facility] Laboratory - Chemistry and C hemistry - challengeOrdered By: Ledy Villatoro on 06-15-2022 ALP [Catalytic activity/Vol] 46 U/L 45-117 [facility] ALT [Catalytic activity/Vol] 20 U/L 16-61 [facility] CO2 [Moles/Vol] 27.0 mmol/L 21.0-32.0 [facility] Globulin (S) [Mass/Vol] 3.8 g/dL 2.2-4.2 [facility] Lipase [Catalytic activity/Vol] 130 U/L 73-393 [facility] Urea nitrogen/Creatinine [Mass ratio] 16.7 mg/mg 10-20 [facility] Laboratory - CoagulationOrde red By: Ledy Villatoro on 06-15-2022 aPTT Coag (Bld) [Time] 32.6 s 24.1-36.2 [facility] PT Coag (PPP) [Time] 13.0 s 11.7-14.9 [facility] Laboratory - Hematology and Cell countsOrdered By: Ledy Villatoro on 06-15-2022 Erythrocyte distribution width (RBC) [Entitic vol] 43.8 fL 35.1-43.9 [facility] Erythrocyte distribution width (RBC) [Ratio] 12.5 % 11.6-14.6 [facility] Immature granulocytes/100 WBC (Bld) 0.400 % 0.0-0.9 [facility] Comment on above: IG% - Immature Granu locytes (promyelocytes, myelocytes and metamyelocytes) > 1% indicates that a LEFT SHIFT is Present. MCH (RBC) [Entitic mass] 31.1 pg 27.0-32.0 [facility] Nucleated RBC/100 WBC (Bld) [Ratio] 0 % 0-5 [facility] MCHC Auto (RBC) [Mass/Vol]Or dered By: Ledy Villatoro on 06-15-2022 MCHC (RBC) [Mass/Vol] 32.7 g/dL 32-[address] [facility] Mucus LM Ql (Urine sed)Order ed By: Ledy Villatoro on 06-15-2022 Mucus Ql (Urine sed) 0 SEEN /hpf [facility] Nitrite Test strip Ql (U)Ord ered By: Ledy Villatoro on 06-15-2022 Nitrite Ql (U) Negative Negative [facility] No Panel InformationOrdered By: Ledy Villatoro on 06-15-2022 Estimated Creatinine Clearance Calc 51.59 ml/min [facility] Estimated GFR (MDRD) Amer 103 mL/min >60 [facility] Comment on above: GFR Calc Estimated GFR (MDRD) Non-Af Amer 85 mL/min >60 [facility] Comment on above: Non- GFR Calc Platelets bldOrdered By: Isidoro Villatoro on 06-15-2022 Platelets (Bld) [#/Vol] 149 10*3/uL 150-450 [facility] Protein Test strip Ql (U)Ord ered By: Ledy Villatoro on 06-15-2022 Protein Ql (U) 15 mg/dl Negative [facility] Serum or plasma albumin yasmeen urement (mass/volume)Ordered By: Ledy Villatoro on 06-15-2022 Albumin [Mass/Vol] 3.5 g/dL 3.2-5.0 [facility] Serum or plasma albumin/glob ulin mass ratioOrdered By: Ledy Villatoro on 06-15-2022 Albumin/Globulin [Mass ratio] 0.9 {ratio} 0.9-2.4 [facility] Serum or plasma calcium yasmeen urement (mass/volume)Ordered By: Ledy Villatoro on 06-15-2022 Calcium [Mass/Vol] 9.1 mg/dL 8.5-10.1 [facility] Serum or plasma creatinine m easurement (mass/volume)Ordered By: Ledy Villatoro on 06-15-2022 Creatinine [Mass/Vol] 0.90 mg/dL 0.70-1.[address] [facility] Comment on above: The validity of the calculated GFR & GFRAA in patients over 70 years has not been determined. Clinical correlation is essential. Serum or plasma urea nitroge n measurement (mass/volume)Ordered By: Ledy Villatoro on 06-15-2022 Urea nitrogen [Mass/Vol] 15 mg/dL 7-18 [facility] Squamous epithelial cells de tection in urine sediment by light microscopyOrdered By: Ledy Villatoro on 06-15-2022 Epithelial cells.squamous LM Ql (Urine sed) 0 SEEN /hpf 0-5 [facility] Thin prep Papanicolaou smear with manual screeningOrdered By: Ledy Villatoro on 06-15-2022 Thin prep Papanicolaou smear with manual screening 21 U/L 15-37 [facility] Thin prep Papanicolaou smear with manual screening 7 5-15 [facility] Urine blood detectionOrdered By: Ledy Villatoro on 06-15-2022 RBC Ql (U) Negative Negative [facility] RBC Ql (U) 0 SEEN /hpf 0-5 [facility] Urine clarityOrdered By: Isidoro Villatoro on 06-15-2022 Clarity (U) Clear Clear [facility] Urine color determinationOrd ered By: Ledy Villatoro on 06-15-2022 Color (U) Yellow Yellow [facility] Urine glucose detectionOrder ed By: Ledy Villatoro on 06-15-2022 Glucose Ql (U) Normal mg/dl Normal [facility] Urine leukocyte esterase det ection by dipstickOrdered By: Ledy Villatoro on 06-15-2022 Leukocyte esterase Test strip Ql (U) Negative Negative [facility] Urine pHOrdered By: Monica Villatoro on 06-15-2022 pH (U) 7.0 [pH] 5.0 - 8.0 [facility] Urine sediment bacteria coun t by microscopy (number/high power field)Ordered By: Ledy Villatoro on 06-15-2022 Bacteria LM.HPF (Urine sed) [#/Area] 0 /[HPF] None Seen [facility] Urine specific gravity measu rementOrdered By: Ledy Villatoro on 06-15-2022 Specific gravity (U) [Rel density] 1.010 1.002-1.030 [facility] Urobilinogen Auto test strip Ql (U)Ordered By: Ledy Villatoro on 06-15-2022 Urobilinogen Ql (U) Normal mg/dl Normal [facility] Absolute lymphocyte countOrd ered By: Dr. Talbot on 06-13-2022 Lymphocytes Auto (Unsp spec) [#/Vol] 0.99 10*3/uL 0.83-4.51 [facility] Basophil percentageOrdered B y: Dr. Talbot on 06-13-2022 Basophil percentage 0 SEEN /hpf 0-5 [facility] Basophils/100 WBC (Bld) 0.2 % 0-1 [facility] Bilirubin [Mass/Vol] 0.50 mg/dL 0.20-1.00 [facility] Comment on above: For patients on eltr ombopag therapy, use of Dimension [place] TBIL is not recommended. Chloride [Moles/Vol] 104 mmol/L 98-107 [facility] Eosinophils/100 WBC (Bld) 0.2 % 0-5 [facility] Glucose [Mass/Vol] 104 mg/dL 74-106 [facility] Comment on above: Fasting Glucose resu lt from 100 to 125 mg/dL suggests IMPAIRED HOMEOSTASIS per A.D.A. criteria. Lactate [Moles/Vol] 1.0 mmol/L 0.4-2.0 [facility] Neutrophils (Bld) [#/Vol] 3.8 10*3/uL 2.0-7.7 [facility] Neutrophils/100 WBC (Bld) 69.0 % 47-70 [facility] Potassium [Moles/Vol] 3.9 mmol/L 3.5-5.[address] [facility] Protein [Mass/Vol] 6.8 g/dL 6.4-8.2 [facility] Sodium [Moles/Vol] 139 mmol/L 136-145 [facility] WBC (Bld) [#/Vol] 5.5 10*3/uL 4.4-11.0 [facility] Bilirubin Test strip Ql (U)O rdered By: Dr. Talbot on 06-13-2022 Bilirubin Ql (U) Negative Negative [facility] Blood erythrocytes count (nu mber/volume)Ordered By: Dr. Talbot on 06-13-2022 RBC (Bld) [#/Vol] 4.57 10*6/uL 4.6-6.2 [facility] Blood hemoglobin measurement (mass/volume)Ordered By: Dr. Talbot on 06-13-2022 Hemoglobin (Bld) [Mass/Vol] 14.3 g/dL 13.0-16.5 [facility] Blood lymphocytes/100 leukoc ytesOrdered By: Dr. Talbot on 06-13-2022 Lymphocytes/100 WBC (Bld) 18.0 % 19-41 [facility] Blood monocytes/100 leukocyt esOrdered By: Dr. Talbot on 06-13-2022 Monocytes/100 WBC (Bld) 12.4 % 0-10 [facility] Blood platelet mean volumeOr dered By: Dr. Talbot on 06-13-2022 Platelet mean volume (Bld) [Entitic vol] 10.6 fL 6.2-12.0 [facility] Determination of erythrocyte mean corpuscular volume (MCV)Ordered By: Dr. Talbot on 06-13-2022 MCV (RBC) [Entitic vol] 93.9 fL 80-94 [facility] Direct bilirubinOrdered By: Dr. Talbot on 06-13-2022 Bilirubin.direct [Mass/Vol] 0.17 mg/dL 0.00-0.30 [facility] Hematocrit Auto (Bld) [Volum e fraction]Ordered By: Dr. Talbot on 06-13-2022 Hematocrit (Bld) [Volume fraction] 42.9 % 40-54 [facility] Ketones Test strip Ql (U)Ord ered By: Dr. Talbot on 06-13-2022 Ketones Ql (U) 15 mg/dl Negative [facility] Laboratory - Chemistry and C hemistry - challengeOrdered By: Dr. Talbot on 06-13-2022 ALP [Catalytic activity/Vol] 47 U/L 45-117 [facility] ALT [Catalytic activity/Vol] 19 U/L 16-61 [facility] CO2 [Moles/Vol] 27.0 mmol/L 21.0-32.0 [facility] Globulin (S) [Mass/Vol] 3.3 g/dL 2.2-4.2 [facility] Lipase [Catalytic activity/Vol] 143 U/L 73-393 [facility] Urea nitrogen/Creatinine [Mass ratio] 17.7 mg/mg 10-20 [facility] Laboratory - Hematology and Cell countsOrdered By: Dr. Talbot on 06-13-2022 Erythrocyte distribution width (RBC) [Entitic vol] 43.2 fL 35.1-43.9 [facility] Erythrocyte distribution width (RBC) [Ratio] 12.4 % 11.6-14.6 [facility] Immature granulocytes/100 WBC (Bld) 0.200 % 0.0-0.9 [facility] Comment on above: IG% - Immature Granu locytes (promyelocytes, myelocytes and metamyelocytes) > 1% indicates that a LEFT SHIFT is Present. MCH (RBC) [Entitic mass] 31.3 pg 27.0-32.0 [facility] Nucleated RBC/100 WBC (Bld) [Ratio] 0 % 0-5 [facility] MCHC Auto (RBC) [Mass/Vol]Or dered By: Dr. Talbot on 06-13-2022 MCHC (RBC) [Mass/Vol] 33.3 g/dL 32-[address] [facility] Mucus LM Ql (Urine sed)Order ed By: Dr. Talbot on 06-13-2022 Mucus Ql (Urine sed) 0 SEEN /hpf [facility] Nitrite Test strip Ql (U)Ord ered By: Dr. Talbot on 06-13-2022 Nitrite Ql (U) Negative Negative [facility] No Panel InformationOrdered By: Dr. Talbot on 06-13-2022 Estimated Creatinine Clearance Calc 51.59 ml/min [facility] Estimated GFR (MDRD) Amer 102 mL/min >60 [facility] Comment on above: GFR Calc Estimated GFR (MDRD) Non-Af Amer 85 mL/min >60 [facility] Comment on above: Non- GFR Calc Platelets bldOrdered By: Dr. Talbot on 06-13-2022 Platelets (Bld) [#/Vol] 155 10*3/uL 150-450 [facility] Protein Test strip Ql (U)Ord ered By: Dr. Talbot on 06-13-2022 Protein Ql (U) Negative Negative [facility] Serum or plasma albumin yasmeen urement (mass/volume)Ordered By: Dr. Talbot on 06-13-2022 Albumin [Mass/Vol] 3.5 g/dL 3.2-5.0 [facility] Serum or plasma calcium yasmeen urement (mass/volume)Ordered By: Dr. Talbot on 06-13-2022 Calcium [Mass/Vol] 8.7 mg/dL 8.5-10.1 [facility] Serum or plasma creatinine m easurement (mass/volume)Ordered By: Dr. Talbot on 06-13-2022 Creatinine [Mass/Vol] 0.90 mg/dL 0.70-1.[address] [facility] Comment on above: The validity of the calculated GFR & GFRAA in patients over 70 years has not been determined. Clinical correlation is essential. Serum or plasma urea nitroge n measurement (mass/volume)Ordered By: Dr. Talbot on 06-13-2022 Urea nitrogen [Mass/Vol] 16 mg/dL 7-18 [facility] Squamous epithelial cells de tection in urine sediment by light microscopyOrdered By: Dr. Talbot on 06-13-2022 Epithelial cells.squamous LM Ql (Urine sed) 0 SEEN /hpf 0-5 [facility] Thin prep Papanicolaou smear with manual screeningOrdered By: Dr. Talbot on 06-13-2022 Thin prep Papanicolaou smear with manual screening 17 U/L 15-37 [facility] Thin prep Papanicolaou smear with manual screening 8 5-15 [facility] Urine blood detectionOrdered By: Dr. Talbot on 06-13-2022 RBC Ql (U) Negative Negative [facility] RBC Ql (U) 0 SEEN /hpf 0-5 [facility] Urine clarityOrdered By: Dr. Talbot on 06-13-2022 Clarity (U) Clear Clear [facility] Urine color determinationOrd ered By: Dr. Talbot on 06-13-2022 Color (U) Yellow Yellow [facility] Urine glucose detectionOrder ed By: Dr. Talbot on 06-13-2022 Glucose Ql (U) Normal mg/dl Normal [facility] Urine leukocyte esterase det ection by dipstickOrdered By: Dr. Talbot on 06-13-2022 Leukocyte esterase Test strip Ql (U) Negative Negative [facility] Urine pHOrdered By: Dr. Rocky armendariz on 06-13-2022 pH (U) 6.5 [pH] 5.0 - 8.0 [facility] Urine sediment bacteria coun t by microscopy (number/high power field)Ordered By: Dr. Talbot on 06-13-2022 Bacteria LM.HPF (Urine sed) [#/Area] 0 /[HPF] None Seen [facility] Urine specific gravity measu rementOrdered By: Dr. Talbot on 06-13-2022 Specific gravity (U) [Rel density] 1.010 1.002-1.030 [facility] Urobilinogen Auto test strip Ql (U)Ordered By: Dr. Talbot on 06-13-2022 Urobilinogen Ql (U) Normal mg/dl Normal [facility] Vital Signs Date Time Vital Sign Value Performing Clinician Facility 11-07-2024 13:49-0400 Body temperature 98 [degF] Dr. Stanley Kaiser MD Work Phone: 1(760)830-798885 [place] [address] 11-07-2024 13:49-0400 Body weight 57.[address] Stanley Kaiser MD Work Phone: 1(792)962-849185 [place] [address] 11-07-2024 13:49-0400 Diastolic blood pressure 86 mm[Hg] Dr. Stanley Kaiser MD Work Phone: 7(905)684-131185 [place] [address] 11-07-2024 13:49-0400 Heart rate 72 /min Dr. Stanley Kaiser MD Work Phone: 8(487)092-072685 [place] [address] 11-07-2024 13:49-0400 Respiratory rate 16 /min Dr. Stanley Kaiser MD Work Phone: 3(237)936-651185 [place] [address] 11-07-2024 13:49-0400 SaO2% (BldA) [Mass fraction] 97 % Dr. Stanley Kaiser MD Work Phone: 3(617)270-987085 [place] [address] 11-07-2024 13:49-0400 Systolic blood pressure 167 mm[Hg] Dr. Stanley Kaiser MD Work Phone: 7(683)635-693985 [place] [address] 10-24-2024 11:00-0400 Diastolic blood pressure 50 mm[Hg] Dr. Stanley Kaiser MD Work Phone: 7(938)167-311885 [place] [address] 10-24-2024 11:00-0400 Heart rate 61 /min Dr. Stanley Kaiser MD Work Phone: 4(535)521-729985 [place] [address] 10-24-2024 11:00-0400 Respiratory rate 16 /min Dr. Stanley Kaiser MD Work Phone: 3(328)395-127585 [place] [address] 10-24-2024 11:00-0400 SaO2% (BldA) [Mass fraction] 91 % Dr. Stanley Kaiser MD Work Phone: 3(067)162-505685 [place] [address] 10-24-2024 11:00-0400 Systolic blood pressure 101 mm[Hg] Dr. Stanley Kaiser MD Work Phone: 2(755)968-697985 [place] [address] 10-24-2024 08:00-0400 Body temperature 97.2 [degF] Dr. Stanley Kaiser MD Work Phone: 5(091)315-714785 [place] [address] 10-24-2024 06:00-0400 Inhaled oxygen flow rate 2 L/min Dr. Stanley Kaiser MD Work Phone: 5(935)795-919085 [place] [address] 10-24-2024 04:08-0400 Body mass index (BMI) [Ratio] 21.9 kg/m2 Dr. Stanley Kaiser MD Work Phone: 0(154)154-666785 [place] [address] 10-24-2024 04:08-0400 Body weight 58.[address] Stanley Kaiser MD Work Phone: 1(124)096-022785 [place] [address] 10-23-2024 17:47-0400 Body height 162.[address] Stanley Kaiser MD Work Phone: 1(477)187-608385 [place] [address] 09-26-2024 13:42-0400 Body height 162.[address] Stanley Kaiser MD Work Phone: 2(571)615-262985 [place] [address] 09-26-2024 13:42-0400 Body mass index (BMI) [Ratio] 22.1 kg/m2 Dr. Stanley Kaiser MD Work Phone: 3(364)198-732785 [place] [address] 09-26-2024 13:42-0400 Body weight 58.[address] Stanley Kaiser MD Work Phone: 0(949)364-188385 [place] [address] 09-26-2024 13:42-0400 Diastolic blood pressure 90 mm[Hg] Dr. Stanley Kaiser MD Work Phone: 2(194)185-478885 [place] [address] 09-26-2024 13:42-0400 Heart rate 61 /min Dr. Stanley Kaiser MD Work Phone: 5(895)329-297884 [place] [address] 09-26-2024 13:42-0400 Respiratory rate 18 /min Dr. Stanley Kaiser MD Work Phone: 6(254)259-936185 [place] [address] 09-26-2024 13:42-0400 SaO2% (BldA) [Mass fraction] 93 % Dr. Stanley Kaiser MD Work Phone: 2(118)128-667985 [place] [address] 09-26-2024 13:42-0400 Systolic blood pressure 184 mm[Hg] Dr. Stanley Kaiser MD Work Phone: 0(486)820-630785 [place] [address] 09-18-2024 14:37-0400 Body temperature 97.5 [degF] Dr. Stanley Kaiser MD Work Phone: 3(385)315-364585 [place] [address] 09-18-2024 14:37-0400 Body weight 58.[address] Stanley Kaiser MD Work Phone: 1(051)384-014285 [place] [address] 09-18-2024 14:37-0400 Diastolic blood pressure 85 mm[Hg] Dr. Stanley Kaiser MD Work Phone: 2(199)350-711085 [place] [address] 09-18-2024 14:37-0400 Heart rate 70 /min Dr. Stanley Kaiser MD Work Phone: 6(001)248-212685 [place] [address] 09-18-2024 14:37-0400 Respiratory rate 16 /min Dr. Stanley Kaiser MD Work Phone: 2(769)933-705085 [place] [address] 09-18-2024 14:37-0400 SaO2% (BldA) [Mass fraction] 94 % Dr. Stanley Kaiser MD Work Phone: 0(171)075-712285 [place] [address] 09-18-2024 14:37-0400 Systolic blood pressure 182 mm[Hg] Dr. Stanley Kaiser MD Work Phone: 0(724)489-600085 [place] [address] 09-17-2024 08:09-0400 Body temperature 98.2 [degF] Dr. Stanley Kaiser MD Work Phone: 9(630)406-049385 [place] [address] 09-17-2024 08:09-0400 Diastolic blood pressure 91 mm[Hg] Dr. Stanley Kaiser MD Work Phone: 1(078)565-348385 [place] [address] 09-17-2024 08:09-0400 Heart rate 54 /min Dr. Stanley Kaiser MD Work Phone: [facility] 09-17-2024 08:09-0400 Respiratory rate 19 /min Dr. Stanley Kaiser MD Work Phone: [facility] 09-17-2024 08:09-0400 SaO2% (BldA) [Mass fraction] 95 % Dr. Stanley Kaiser MD Work Phone: [facility] 09-17-2024 08:09-0400 Systolic blood pressure 174 mm[Hg] Dr. Stanley Kaiser MD Work Phone: 4(773)583-791184 [place] [address] 09-17-2024 06:12-0400 Body height 162.[address] Stanley Kaiser MD Work Phone: 6(151)886-368084 [place] [address] 09-17-2024 06:12-0400 Body mass index (BMI) [Ratio] 22 kg/m2 Dr. Stanley Kaiser MD Work Phone: [facility] 09-17-2024 06:12-0400 Body weight 58.[address] Stanley Kaiser MD Work Phone: [facility] 09-13-2024 10:07-0400 Body mass index (BMI) [Ratio] 23.03 kg/m2 Tomas Yarelisi DO Work Phone: [facility] 09-13-2024 10:07-0400 Body temperature 98.01 [degF] Tomas Masci DO Work Phone: [facility] 09-13-2024 10:07-0400 Body weight 58.97 kg Tomas Masci DO Work Phone: [facility] 09-13-2024 10:07-0400 Diastolic blood pressure 99 mm[Hg] Tomas Masci DO Work Phone: [facility] 09-13-2024 10:07-0400 Heart rate 66 /min Tomas Masci DO Work Phone: [facility] 09-13-2024 10:07-0400 SaO2% (BldA) [Mass fraction] 94 % Tomas Santoyoi DO Work Phone: [facility] 09-13-2024 10:07-0400 Systolic blood pressure 167 mm[Hg] Tmoas Yarelisi DO Work Phone: [facility] 07-07-2024 10:08-0500 Diastolic blood pressure 88 mm[Hg] Stanley Kaiser MD Work Phone: [facility] 07-07-2024 10:08-0500 Systolic blood pressure 138 mm[Hg] Stanley Kaiser MD Work Phone: [facility] 07-07-2024 09:50-0500 Body mass index (BMI) [Ratio] 23.03 kg/m2 Stanley Kaiser MD Work Phone: [facility] 07-07-2024 09:50-0500 Body weight 58.97 kg Stanley Kaiser MD Work Phone: [facility] 07-07-2024 09:50-0500 Heart rate 56 /min Stanley Kaiser MD Work Phone: [facility] 07-07-2024 09:50-0500 SaO2% (BldA) [Mass fraction] 97 % Stanley Kaiser MD Work Phone: [facility] 03-15-2024 09:15-0400 Body mass index (BMI) [Ratio] 23.12 kg/m2 Tomas Yarelisi DO Work Phone: [facility] 03-15-2024 09:15-0400 Body temperature 96.91 [degF] Tomas Yarelisi DO Work Phone: [facility] 03-15-2024 09:15-0400 Body weight 59.19 kg Tomas Masci DO Work Phone: [facility] 03-15-2024 09:15-0400 Diastolic blood pressure 83 mm[Hg] Tomas Masci DO Work Phone: [facility] 03-15-2024 09:15-0400 Heart rate 63 /min Tomas Yarelisi DO Work Phone: [facility] 03-15-2024 09:15-0400 SaO2% (BldA) [Mass fraction] 95 % Tomas Santoyoi DO Work Phone: [facility] 03-15-2024 09:15-0400 Systolic blood pressure 156 mm[Hg] Tomas Santoyoi DO Work Phone: [facility] 12-29-2023 09:50-0400 Body height 160 cm Stanley Kaiser MD Work Phone: [facility] 12-29-2023 09:50-0400 Body mass index (BMI) [Ratio] 22.5 kg/m2 Stanley Kaiser MD Work Phone: [facility] 12-29-2023 09:50-0400 Body weight 57.61 kg Stanley Kaiser MD Work Phone: [facility] 12-29-2023 09:50-0400 Diastolic blood pressure 66 mm[Hg] Stanley Kaiser MD Work Phone: [facility] 12-29-2023 09:50-0400 Heart rate 62 /min Stanley Kaiser MD Work Phone: [facility] 12-29-2023 09:50-0400 SaO2% (BldA) [Mass fraction] 96 % Stanley Kaiser MD Work Phone: [facility] 12-29-2023 09:50-0400 Systolic blood pressure 124 mm[Hg] Stanley Kaiser MD Work Phone: [facility] 12-15-2023 09:09-0400 Body mass index (BMI) [Ratio] 22.67 kg/m2 Tomas Santoyoi DO Work Phone: [facility] 12-15-2023 09:09-0400 Body temperature 97.2 [degF] Tomas Santoyoi DO Work Phone: [facility] 12-15-2023 09:09-0400 Body weight 58.06 kg Tomas Santoyoi DO Work Phone: [facility] 12-15-2023 09:09-0400 Diastolic blood pressure 83 mm[Hg] Tomas Fontenot DO Work Phone: [facility] 12-15-2023 09:09-0400 Heart rate 64 /min Tomas Masci DO Work Phone: [facility] 12-15-2023 09:09-0400 SaO2% (BldA) [Mass fraction] 96 % Tomas Masci DO Work Phone: [facility] 12-15-2023 09:09-0400 Systolic blood pressure 165 mm[Hg] Tomas Masci DO Work Phone: [facility] 09-22-2023 09:16-0400 Body mass index (BMI) [Ratio] 22.85 kg/m2 Tomas Masci DO Work Phone: [facility] 09-22-2023 09:16-0400 Body temperature 97.39 [degF] Tomas Masci DO Work Phone: [facility] 09-22-2023 09:16-0400 Body weight 58.51 kg Tomas Masci DO Work Phone: [facility] 09-22-2023 09:16-0400 Diastolic blood pressure 78 mm[Hg] Tomas Masci DO Work Phone: [facility] 09-22-2023 09:16-0400 Heart rate 58 /min Tomas Masci DO Work Phone: [facility] 09-22-2023 09:16-0400 SaO2% (BldA) [Mass fraction] 94 % Tomas Masci DO Work Phone: [facility] 09-22-2023 09:16-0400 Systolic blood pressure 146 mm[Hg] Tomas Masci DO Work Phone: [facility] 08-27-2023 08:31-0400 Body temperature 96.8 [degF] Tomas Masci DO Work Phone: [facility] 08-27-2023 08:31-0400 Body weight 59.88 kg Tomas Masci DO Work Phone: [facility] 08-27-2023 08:31-0400 Diastolic blood pressure 76 mm[Hg] Tomas Masci DO Work Phone: [facility] 08-27-2023 08:31-0400 Heart rate 59 /min Tomas Masci DO Work Phone: [facility] 08-27-2023 08:31-0400 SaO2% (BldA) [Mass fraction] 92 % Tomas Masci DO Work Phone: [facility] 08-27-2023 08:31-0400 Systolic blood pressure 146 mm[Hg] Tomas Masci DO Work Phone: [facility] 08-09-2023 12:56-0400 Body height 161.3 cm Tomas Masci DO Work Phone: [facility] 08-09-2023 12:56-0400 Body temperature 96.91 [degF] Tomas Masci DO Work Phone: [facility] 08-09-2023 12:56-0400 Body weight 60.1 kg Tomas Masci DO Work Phone: [facility] 08-09-2023 12:56-0400 Diastolic blood pressure 81 mm[Hg] Tomas Masci DO Work Phone: [facility] 08-09-2023 12:56-0400 Heart rate 63 /min Tomas Masci DO Work Phone: [facility] 08-09-2023 12:56-0400 SaO2% (BldA) [Mass fraction] 97 % Tomas Masci DO Work Phone: [facility] 08-09-2023 12:56-0400 Systolic blood pressure 160 mm[Hg] Tomas Masci DO Work Phone: [facility] 06-30-2023 08:59-0500 Diastolic blood pressure 78 mm[Hg] Stanley Kaiser MD Work Phone: [facility] 06-30-2023 08:59-0500 Systolic blood pressure 136 mm[Hg] Stanley Kaiser MD Work Phone: [facility] 06-30-2023 08:31-0500 Body height 167.6 cm Stanley Kaiser MD Work Phone: [facility] 06-30-2023 08:31-0500 Body weight 59.24 kg Stanley Kaiser MD Work Phone: [facility] 06-30-2023 08:31-0500 Heart rate 62 /min Stanley Kaiser MD Work Phone: [facility] 06-30-2023 08:31-0500 SaO2% (BldA) [Mass fraction] 95 % Stanley Kaisre MD Work Phone: [facility] 12-25-2022 11:37-0400 Diastolic blood pressure 86 mm[Hg] Stanley Kaiser MD Work Phone: [facility] 12-25-2022 11:37-0400 Systolic blood pressure 134 mm[Hg] Stanley Kaiser MD Work Phone: [facility] 12-25-2022 11:15-0400 Body height 167.6 cm Stanley Kaiser MD Work Phone: [facility] 12-25-2022 11:15-0400 Body weight 56.25 kg Stanley Kaiser MD Work Phone: [facility] 12-25-2022 11:15-0400 Heart rate 62 /min Stanley Kaiser MD Work Phone: [facility] 12-25-2022 11:15-0400 SaO2% (BldA) [Mass fraction] 96 % Stanley Kaiser MD Work Phone: [facility] 11-27-2022 11:34-0400 Body height 167.6 cm Stanley Kaiser MD Work Phone: [facility] 11-27-2022 11:34-0400 Body weight 55.79 kg Stanley Kaiser MD Work Phone: [facility] 11-27-2022 11:34-0400 Diastolic blood pressure 66 mm[Hg] Stanley Kaiser MD Work Phone: [facility] 11-27-2022 11:34-0400 Heart rate 78 /min Stanley Kaiser MD Work Phone: [facility] 11-27-2022 11:34-0400 SaO2% (BldA) [Mass fraction] 93 % Stanley Kaiser MD Work Phone: [facility] 11-27-2022 11:34-0400 Systolic blood pressure 124 mm[Hg] Stanley Kaiser MD Work Phone: [facility] 11-20-2022 12:02-0400 Diastolic blood pressure 58 mm[Hg] Stanley Kaiser MD Work Phone: [facility] 11-20-2022 12:02-0400 Systolic blood pressure 110 mm[Hg] Stanley Kaiser MD Work Phone: [facility] 11-20-2022 11:37-0400 Body height 167.6 cm Stanley Kaiser MD Work Phone: [facility] 11-20-2022 11:37-0400 Body weight 55.97 kg Stanley Kaiser MD Work Phone: [facility] 11-20-2022 11:37-0400 Heart rate 64 /min Stanley Kaiser MD Work Phone: [facility] 11-20-2022 11:37-0400 SaO2% (BldA) [Mass fraction] 92 % Stanley Kaiser MD Work Phone: [facility] 10-02-2022 10:18-0400 Body height 167.64 cm [facility] 10-02-2022 10:18-0400 Body mass index (BMI) [Ratio] 20.9 kg/m2 [facility] 10-02-2022 10:18-0400 Body temperature 97.2 [degF] [facility] 10-02-2022 10:18-0400 Body weight 58.96 kg [facility] 10-02-2022 10:18-0400 Diastolic blood pressure 75 mm[Hg] [facility] 10-02-2022 10:18-0400 Heart rate 64 /min [facility] 10-02-2022 10:18-0400 Respiratory rate 14 /min [facility] 10-02-2022 10:18-0400 SaO2% (BldA) [Mass fraction] 100 % [facility] 10-02-2022 10:18-0400 Systolic blood pressure 159 mm[Hg] [facility] 06-15-2022 14:59-0500 Diastolic blood pressure 78 mm[Hg] [facility] 06-15-2022 14:59-0500 Systolic blood pressure 133 mm[Hg] [facility] 06-15-2022 13:18-0500 Body height 167.64 cm [facility] 06-15-2022 13:18-0500 Body mass index (BMI) [Ratio] 21.6 kg/m2 [facility] 06-15-2022 13:18-0500 Body temperature 98 [degF] [facility] 06-15-2022 13:18-0500 Body weight 60.78 kg [facility] 06-15-2022 13:18-0500 Heart rate 71 /min [facility] 06-15-2022 13:18-0500 Respiratory rate 14 /min [facility] 06-15-2022 13:18-0500 SaO2% (BldA) [Mass fraction] 90 % [facility] 06-13-2022 22:28-0500 Diastolic blood pressure 82 mm[Hg] [facility] 06-13-2022 22:28-0500 Heart rate 85 /min [facility] 06-13-2022 22:28-0500 Respiratory rate 15 /min [facility] 06-13-2022 22:28-0500 SaO2% (BldA) [Mass fraction] 98 % [facility] 06-13-2022 22:28-0500 Systolic blood pressure 132 mm[Hg] [facility] 06-13-2022 18:40-0500 Body height 167.64 cm [facility] 06-13-2022 18:40-0500 Body mass index (BMI) [Ratio] 21.6 kg/m2 [facility] 06-13-2022 18:40-0500 Body temperature 98.2 [degF] [facility] 06-13-2022 18:40-0500 Body weight 60.78 kg [facility] 06-13-2022 10:32-0500 Body height 167.6 cm Stanley Kaiser MD Work Phone: [facility] 06-13-2022 10:32-0500 Body temperature 97.81 [degF] Stanley Kaiser MD Work Phone: [facility] 06-13-2022 10:32-0500 Body weight 60.33 kg Stanley Kaiser MD Work Phone: [facility] 06-13-2022 10:32-0500 Diastolic blood pressure 74 mm[Hg] Stanley Kaiser MD Work Phone: [facility] 06-13-2022 10:32-0500 Heart rate 68 /min Stanley Kaiser MD Work Phone: [facility] 06-13-2022 10:32-0500 SaO2% (BldA) [Mass fraction] 95 % Stanley Kaiser MD Work Phone: [facility] 06-13-2022 10:32-0500 Systolic blood pressure 118 mm[Hg] Stanley Kaiser MD Work Phone: [facility] Encounters Encounter Date Encounter Type Care Provider Facility Start: 12-07-2024 ambulatory Stanley Philippi Facility:[facility] Start: 11-21-2024 Encounter for other preprocedural examination Eriberto Ortiz [facility] Start: 11-07-2024 End: 11-07-2024 Patient encounter procedure Anna QUIROGA -[facility] Work Phone: Start: 11-07-2024 End: 11-07-[address] Stanley Kaiser MD Work Phone: [facility] Work Phone: Start: 10-24-2024 Non-patient / Non-visit Anna QUIROGA -[facility] Start: 10-23-2024 End: 10-24-2024 Evaluation and management of inpatient Dr. Eriberto Ortiz MD -Intensive Care Unit Work Phone: Start: 10-23-2024 Non-patient / Non-visit Dr. Eriberto ludwig MD -[facility] Start: 10-23-2024 ambulatory Elkin Larson Facility:[facility] Start: 09-26-2024 End: 09-26-[address] Brayan Breaux MD -[facility] Work Phone: Start: 09-26-2024 End: 09-26-[address] Stanley Kaiser MD Work Phone: [facility] Work Phone: Start: 09-18-2024 End: 09-18-2024 ambulatory TOMAS FONTENOT Facility:[facility] Start: 09-18-2024 End: 09-18-[address] Eriberto Ortiz MD -[facility] Work Phone: Start: 09-18-2024 End: 09-18-2024 ambulatory Stanley Kaiser Facility:[facility] Start: 09-18-2024 End: 09-19-2024 Telephone encounter Tomas [...] ambulatory Dr. 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, unspecified follicular lymphoma type (HCC) (Primary Dx); Tobacco user Start: 09-13-2024 End: 09-14-2024 ambulatory STANLEY KAISER Facility:[facility] Start: 07-07-2024 End: 07-07-2024 ambulatory STANLEY KAISER Facility:[facility] Start: 07-07-2024 End: 07-07-2024 Patient encounter procedure Stanley Kaiser MD Work Phone: [facility] Comment on above: Abdominal aortic ane urysm (AAA) without rupture, unspecified part (HCC) (Primary Dx); Mixed hyperlipidemia; Essential (primary) hypertension; Lymphoma, unspecified body region, unspecified lymphoma type (HCC); Prediabetes; Tobacco user Start: 03-15-2024 End: 03-15-2024 Patient encounter procedure Tomas Fontenot DO Work Phone: Hematology/Oncology Start: 03-15-2024 End: 03-15-2024 ambulatory Tomas Fontenot DO Work Phone: Hematology/Oncology Comment on above: 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, unspecified follicular lymphoma type (HCC) (Primary Dx) Start: 12-31-2023 Refill Stanley Kaiser MD Work Phone: [facility] Comment on above: Refill Request Start: 12-29-2023 End: 12-29-2023 Patient encounter procedure Stanley Kaiser MD Work Phone: [facility] Comment on above: Essential (primary) hypertension (Primary Dx); Abdominal aortic aneurysm (AAA) without rupture, unspecified part (HCC); Lymphoma, unspecified body region, unspecified lymphoma type (HCC); Prediabetes; Screening for depression; Encounter for screening examination for other mental health and behavioral disorders Start: 12-29-2023 End: 12-29-2023 ambulatory STANLEY KAISER Facility:[facility] Start: 12-16-2023 Telephone encounter Stanley Kaiser MD Work Phone: [facility] Comment on above: Results Start: 12-15-2023 End: 12-15-2023 Patient encounter procedure Tomas Fontenot DO Work Phone: Hematology/Oncology Start: 12-15-2023 End: 12-15-2023 ambulatory Tomas Fontenot DO Work Phone: Hematology/Oncology Comment on above: 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, unspecified follicular lymphoma type (HCC) (Primary Dx) Start: 09-22-2023 End: 09-22-2023 ambulatory Tomas Daniels Phone: Hematology/Oncology Comment on above: 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 Provided pt with office number to call with any further questions. 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, unspecified follicular lymphoma type (HCC) (Primary Dx) Start: 08-27-2023 End: 08-27-2023 Patient encounter procedure Tomas Daniels Phone: [facility] Start: 08-24-2023 ambulatory [facility] Facility :[facility] Start: 08-24-2023 End: 08-24-2023 Subsequent hospital visit by physician [facility] PET CT Comment on above: 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, unspecified follicular lymphoma type (HCC) [C82.91] Start: 08-09-2023 End: 08-09-2023 ambulatory Tomas Fontenot DO Work Phone: Hematology/Oncology Comment on above: 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, unspecified follicular lymphoma type (HCC) (Primary Dx) Start: 08-09-2023 End: 08-09-2023 Patient encounter procedure Tomas Santoyoestella DO Work Phone: [facility] Start: 08-04-2023 Telephone encounter Tomas Cardona clovis DO Work Phone: Hematology/Oncology Comment on above: New Patient Start: 07-19-2023 End: 07-19-2023 ambulatory [facility] Work Phone: Start: 07-19-2023 End: 07-19-2023 Patient encounter procedure [facility]-Laboratory Work Phone: Start: 06-30-2023 End: 06-30-2023 Patient encounter procedure Stanley Kaiser MD Work Phone: [facility] Comment on above: Neck mass (Primary D x); Mixed hyperlipidemia; History of lymphoma; Prediabetes Start: 06-18-2023 Telephone encounter Stanley Kaiser MD Work Phone: [facility] Comment on above: Results Start: 06-18-2023 End: 06-18-2023 Subsequent hospital visit by physician [facility]) Work Phone: Cat Scan Comment on above: Cervical mass [N88.8 ] Start: 06-17-2023 Telephone encounter Stanley Kaiser MD Work Phone: [facility] Comment on above: Results Start: 12-25-2022 End: 12-25-2022 Patient encounter procedure Stanley Kaiser MD Work Phone: [facility] Comment on above: Bacterial pneumonia (Primary Dx); Abdominal aortic aneurysm (AAA) without rupture, unspecified part (HCC); Essential (primary) hypertension; Mixed hyperlipidemia Start: 12-22-2022 End: 12-22-2022 Subsequent hospital visit by physician Xr [facility] Work Phone: Radiology Comment on above: Bacterial pneumonia [J15.9] Start: 12-08-2022 End: 12-08-2022 ambulatory [facility] Work Phone: Start: 12-08-2022 End: 12-08-2022 Patient encounter procedure [facility]-Cat Scan, [facility] Work Phone: Start: 11-27-2022 End: 11-27-2022 Patient encounter procedure Stanley Kaiser MD Work Phone: [facility] Comment on above: Bacterial pneumonia (Primary Dx); Weight loss Start: 11-23-2022 Telephone encounter Stanley Kaiser MD Work Phone: Family [facility] Comment on above: Results Start: 11-21-2022 Telephone encounter Stanley Kaiser MD Work Phone: [facility] Comment on above: Results Start: 11-20-2022 End: 11-20-2022 Subsequent hospital visit by physician Xr [facility] Work Phone: Radiology Comment on above: Acute cough [R05.1] Start: 11-20-2022 End: 11-20-2022 Patient encounter procedure Stanley Kaiser MD Work Phone: Family [facility] Comment on above: Acute cough (Primary Dx); Abdominal aortic aneurysm (AAA) without rupture, unspecified part (HCC); Bronchitis; Weight loss Start: 10-02-2022 End: 10-02-2022 Emergency department patient visit [facility]Emergency Department Work Phone: Start: 06-15-2022 Telephone encounter Stanley Kaiser MD Work Phone: [facility] Comment on above: Results Start: 06-15-2022 End: 06-15-2022 Emergency department patient visit [facility]Emergency Department Start: 06-13-2022 End: 06-13-2022 Emergency department patient visit [facility]Emergency [facility] Start: 06-13-2022 End: 06-13-2022 Patient encounter procedure Stanley Kaiser MD Work Phone: [facility] Comment on above: Abdominal discomfort in left upper quadrant (Primary Dx); History of lymphoma Procedures Date Procedure Procedure Detail Performing Clinician Start: 10-24-[address] tSanley Kaiser MD Work Phone: Start: 10-23-2024 Coagulation time, activated Dr. Stanley Kaiser MD Work Phone: Start: [...] Detail Author Start: 09-19-2027 Diabetes Screening Diabetes Screenin [facility] Start: 09-14-2027 Diabetes Screening Diabetes Screenin [facility] Start: 03-15-2027 Diabetes Screening Diabetes Screenin [facility] Start: 12-14-2026 Diabetes Screening Diabetes Screenin [facility] Start: 08-08-2026 Diabetes Screening Diabetes Screenin [facility] Start: 06-16-2026 Diabetes Screening Diabetes Screenin g [facility] Start: 11-20-2025 DIABETES SCREEN DIABETES SCREEN [facility] Start: 06-13-2025 DIABETES SCREEN DIABETES SCREEN [facility] Start: 03-14-2025 End: 03-14-2025 ambulatory Daivd Gibbswn [facility] Comment on above: CBC/CMP(S)/LDH* CBC/CMP(S)/LDH/6 MO OV* Start: 01-15-2025 Influenza vaccination Influenz a Vaccine (Season Ended) [facility] Start: 01-08-2025 End: 01-08-2025 Patient encounter procedure 01/08/2025 8:00 AM EDT Office Visit [facility] [address] [place], [place] [id number] Stanley Kaiser MD [address] [place], [place] [id number] [facility] Comment on above: physical Start: 12-28-2024 Anxiety Screening Anxiety Screening [facility] Start: 12-28-2024 Covid-19 Vaccine (#1) Covid-19 Vacci ne (#1) [facility] Comment on above: Postponed from 07/14 (Declined at this time) Start: 12-28-2024 Depression Screening Depression Scre ening [facility] Start: 12-28-2024 Pneumococcal Vaccine : 50+ (1 of 2 - PCV) Pneumococcal Vaccine: 50+ (1 of 2 - PCV) [facility] Comment on above: Postponed from 07/14 (Declined at this time) Start: 12-28-2024 Pneumococcal Vaccine : 65+ (1 of 2 - PCV) Pneumococcal Vaccine: 65+ (1 of 2 - PCV) [facility] Comment on above: Postponed from 07/14 (Declined at this time) Start: 12-28-2024 Shingrix Vaccine (1 of 2) Leblanc grix Vaccine (1 of 2) [facility] Comment on above: Postponed from 07/14 (Declined at this time) Start: 12-28-2024 Urine microalbumin profile DTaP,Tdap,Td Vaccine (1 - Tdap) [facility] Comment on above: Postponed from 07/14 (Declined at this time) Start: 11-13-2024 Influenza vaccination Influenza Vacc ine (#1) [facility] Comment on above: Postponed from 01/15 (Declined at this time) Start: 10-24-2024 Patient discharge [facility] Start: 10-23-2024 Following clinical pathway protocol [facility] Start: 10-23-2024 Elevation of head of bed [facility] Start: 10-23-2024 Ambulation without limitation [facility] Start: 10-23-2024 Assessment of risk o f venous thromboembolism [facility] Start: 10-23-2024 Cardiac monitoring [facility] Start: 10-23-2024 Continuous pulse oximetry [facility] Start: 10-23-2024 Incentive spirometry [facility] Start: 10-23-2024 Insertion of cathete r into peripheral vein [facility] Start: 10-23-2024 Measuring intake and output [facility] Start: 10-23-2024 Neurovascular assessment [facility] Start: 10-23-2024 Nil by mouth [facility] Start: 10-23-2024 Notification of physician [facility] Start: 10-23-2024 Oxygen therapy [facility] Start: 10-23-2024 Patient education [facility] Start: 10-23-2024 Patient referral to dietitian [facility] Start: 10-23-2024 Providing care accor ding to standard [facility] Start: 10-23-2024 Provision of activit y privileges [facility] Start: 10-23-2024 Pulse taking [facility] Start: 10-23-2024 Referral to occupati onal therapist [facility] Start: 10-23-2024 Referral to service [facility] Start: 10-23-2024 Removal of urinary catheter [facility] Start: 10-23-2024 Vital signs measurements [facility] Start: 10-23-2024 End: 10-23-2024 [facility] Start: 10-23-2024 Bedrest [facility] Start: 10-23-2024 Admission procedure [facility] Start: 10-23-2024 Administration of bl ood product [facility] Start: 10-23-2024 Repair of aneurysm o f abdominal aorta with graft Abdominal Aortic Aneurism Graft Stent (Not Applicable) [facility] Start: 10-23-2024 Patient referral to dietitian [facility] Start: 09-26-2024 Evaluation of diagno stic study results 12 Lead EKG performed by BMS [facility] Start: 09-18-2024 [facility] Work Phone: Start: 09-17-2024 End: 12-17-2024 Comprehensive metabolic 2000 panel - Serum or Plasma COMPREHENSIVE METABOLIC PANEL Lab Routine Elevated bilirubin Expected: 09/17/2024, Expires: 12/17/2024 [facility] Work Phone: Comment on above: Expected: 09/17/2024 , Expires: 12/17/2024 Start: 09-17-2024 End: 12-17-2024 DIRECT BILIRUBIN BLOOD DIRECT BILIRUBIN BLOOD Lab Routine Elevated bilirubin Expected: 09/17/2024, Expires: 12/17/2024 [facility] Comment on above: Expected: 09/17/2024 , Expires: 12/17/2024 Start: 09-17-2024 End: 09-17-2024 [facility] Start: 09-13-2024 End: 09-13-2024 ambulatory [facility] Laboratory Comment on above: CBC/CMP(S)/LDH* CBC/CMP(S)/LDH/6 MO OV* Start: 07-07-2024 End: 10-06-2024 CBC W Auto Differential panel - Blood [facility] Comment on above: Expected: 07/07/2024 , Expires: 10/06/2024 Start: 07-07-2024 End: 10-06-2024 Comprehensive metabolic 2000 panel - Serum or Plasma [facility] Work Phone: Comment on above: Expected: 07/07/2024 , Expires: 10/06/2024 Start: 07-07-2024 End: 10-06-2024 Lipid 1996 panel - Serum or Plasma [facility] Comment on above: Expected: 07/07/2024 , Expires: 10/06/2024 Start: 07-07-2024 End: 07-07-2024 Patient encounter procedure 07/07/2024 10:00 AM EST Office Visit Family [facility] [address] [place] [id number] Stanley Kaiser MD [address] [place] [id number] 6 month follow up Family [facility] Comment on above: 6 month follow up Start: 06-30-2024 End: 09-29-2024 Hemoglobin A1c in Blood HEMOGLOBIN A1C Lab Routine Prediabetes Expected: 06/30/2024, Expires: 09/29/2024 [facility] Work Phone: Comment on above: Expected: 06/30/2024 , Expires: 09/29/2024 Start: 06-16-2024 RSV Vaccine (1 - 1-d ose 60+ series) RSV Vaccine (1 - 1-dose 60+ series) [facility] Comment on above: Postponed from 07/14 (Declined at this time) Start: 06-16-2024 RSV Vaccine (1 - 1-d ose 75+ series) RSV Vaccine (1 - 1-dose 75+ series) [facility] Comment on above: Postponed from 07/14 (Declined at this time) Start: 05-17-2024 Advance Directive Discussion Advance Directive Discussion [facility] Start: 03-15-2024 End: 03-15-2024 ambulatory [place] [facility] Laboratory Comment on above: CBC/CMP(S)/LDH* CBC/CMP(S)/LDH/3 MO OV* Start: 01-16-2024 Influenza vaccination [facility] Start: 12-29-2023 End: 12-29-2023 Patient encounter procedure 12/29/2023 10:00 AM EDT Office Visit [facility]oster [address] [place] [address] Stanley Kaiser MD [address] [place] [address] 6 month follow up [facility] Comment on above: 6 month follow up Start: 12-26-2023 COVID-19 VACCINE (#1) COVID-19 VACCI NE (#1) [facility] Comment on above: Postponed from 01/11 (Declined at this time) Postponed from 07/14 (Declined at this time) Start: 12-26-2023 Pneumococcal Vaccine : 65+ (1 of 2 - PCV) Pneumococcal Vaccine: 65+ (1 of 2 - PCV) [facility] Comment on above: Postponed from 07/14 (Declined at this time) Start: 12-26-2023 PNEUMOCOCCAL: 65+ (1 - PCV) PNEUMOCOCCAL: 65+ (1 - PCV) [facility] Comment on above: Postponed from 07/14 (Declined at this time) Start: 12-26-2023 SHINGRIX VACCINE (1 of 2) LEBLANC GRIX VACCINE (1 of 2) [facility] Comment on above: Postponed from 07/14 (Declined at this time) Start: 12-26-2023 Urine microalbumin profile [facility] Comment on above: Postponed from 07/14 (Declined at this time) Start: 12-17-2023 End: 03-17-2024 Hemoglobin A1c in Blood HGB A1C Lab Routine Prediabetes Expected: 12/17/2023, Expires: 03/17/2024 [facility] Work Phone: Comment on above: Expected: 12/17/2023 , Expires: 03/17/2024 Start: 12-15-2023 End: 12-15-2023 [facility] Comment on above: CBC/CMP/LDH* CBC/CMP/LDH/3 MO OV* Start: 11-14-2023 Influenza vaccination Influenza Vacc ine (#1) [facility] Comment on above: Postponed from 01/15 (Declined at this time) Start: 06-27-2023 End: 08-27-2023 CBC W Auto Differential panel - Blood CBC + DIFF Lab Routine Essential (primary) hypertension Mixed hyperlipidemia Expected: 06/27/2023, Expires: 08/27/2023 [facility] Work Phone: Comment on above: Expected: 06/27/2023 , Expires: 08/27/2023 Start: 06-27-2023 End: 08-27-2023 Comprehensive metabolic 2000 panel - Serum or Plasma COMP METABOLIC PANEL Lab Routine Essential (primary) hypertension Mixed hyperlipidemia Expected: 06/27/2023, Expires: 08/27/2023 [facility] Work Phone: Comment on above: Expected: 06/27/2023 , Expires: 08/27/2023 Start: 06-27-2023 End: 08-27-2023 Lipid 1996 panel - Serum or Plasma LIPID PANEL BASIC Lab Routine Essential (primary) hypertension Mixed hyperlipidemia Expected: 06/27/2023, Expires: 08/27/2023 [facility] Work Phone: Comment on above: Expected: 06/27/2023 , Expires: 08/27/2023 Start: 05-17-2023 Behavioral Health Screening Behavioral Health Screening [facility] Start: 01-15-2023 Influenza vaccination INFLUENZA (#1) [facility] Start: 12-28-2022 End: 12-27-2023 Radiologic exam chest 2 views XR CHEST 2V FRONTAL/LAT Radiology Routine Bacterial pneumonia Expected: 12/28/2022, Expires: 12/27/2023 [facility] Work Phone: Comment on above: Expected: 12/28/2022 , Expires: 12/27/2023 Start: 11-23-2022 End: 01-23-2023 CBC W Auto Differential panel - Blood CBC + DIFF Lab Routine Leukocytosis, unspecified type Expected: 11/23/2022, Expires: 01/23/2023 [facility] Work Phone: Comment on above: Expected: 11/23/2022 , Expires: 01/23/2023 Start: 11-20-2022 End: 01-20-2023 Basic metabolic 2000 panel - Serum or Plasma [facility] Work Phone: Comment on above: Expected: 11/20/2022 , Expires: 01/20/2023 Start: 06-15-2022 End: 08-15-2022 Urinalysis complete panel - Urine URINALYSIS, WITH MICROSCOPIC Lab Routine Proteinuria, unspecified type Expected: 06/15/2022, Expires: 08/15/2022 [facility] Work Phone: Comment on above: Expected: 06/15/2022 , Expires: 08/15/2022 Start: 06-13-2022 End: 08-13-2022 Bacteria identified in Urine by Culture [facility] Work Phone: Comment on above: Expected: 06/13/2022 , Expires: 08/13/2022 Start: 06-13-2022 End: 08-13-2022 CBC W Auto Differential panel - Blood [facility] Work Phone: Comment on above: Expected: 06/13/2022 , Expires: 08/13/2022 Start: 06-13-2022 End: 08-13-2022 Comprehensive metabolic 2000 panel - Serum or Plasma [facility] Work Phone: Comment on above: Expected: 06/13/2022 , Expires: 08/13/2022 Start: 06-13-2022 End: 08-13-2022 Lipase [Enzymatic activity/volume] in Serum or Plasma [facility] Work Phone: Comment on above: Expected: 06/13/2022 , Expires: 08/13/2022 Start: 06-13-2022 End: 08-13-2022 Urinalysis complete panel - Urine [facility] Work Phone: Comment on above: Expected: 06/13/2022 , Expires: 08/13/2022 Start: 05-17-2022 ADVANCE DIRECTIVE DISCUSSION ADVANCE DIRECTIVE DISCUSSION [facility] Start: 05-17-2022 DEPRESSION ASSESSMENT DEPRESSION ASS ESSMENT [facility] Start: 01-15-2022 Influenza vaccination INFLUENZA (#1) [facility] Start: 06-03-2020 DIABETES SCREEN DIABETES SCREEN [facility] Start: 2011 RSV Vaccine (1 - 1-d ose 75+ series) RSV Vaccine (1 - 1-dose 75+ series) [facility] Start: 1955 SHINGRIX VACCINE (1 of 2) LEBLANC GRIX VACCINE (1 of 2) [facility] Start: 1955 Urine microalbumin profile DTAP,TDAP,TD (1 - Tdap) [facility] Start: 1954 Anxiety Screening Anxiety Screening [facility] Start: 1954 Depression Screening Depression Scre ening [facility] Start: 1942 PNEUMOCOCCAL: 65+ (1 - PCV) PNEUMOCOCCAL: 65+ (1 - PCV) [facility] Start: 01-11-1937 COVID-19 VACCINE (#1) COVID-19 VACCI NE (#1) [facility] Basic metabolic 2008 panel with ionized calcium - Serum or Plasma [facility] CBC W Auto Different ial panel - Blood CBC + DIFF Lab Routine Acute cough Bronchitis Weight loss 11/20/2022 12:23 PM EDT [facility] Work Phone: Glomerular filtratio n rate/1.73 sq M.predicted [Volume Rate/Area] in Serum, Plasma or Blood by Creatinine-based formula (CKD-EPI) [facility] Guidance for deep bi opsy of Bone IMAGING GUIDED BIOPSY RIB/BONY PELVIS/STERNUM/SPINOUS PROCESS Radiology Routine 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, unspecified follicular lymphoma type (HCC) Ordered: 08/27/2023 [facility] Work Phone: Comment on above: Ordered: 08/27/2023 Influenza virus A an d B RNA and SARS-CoV-2 (COVID-19) N gene panel - Respiratory specimen by GUNJAN with probe detection COVID WITH FLUA+B, ROUTINE Microbiology Routine Acute cough Bronchitis 11/20/2022 12:09 PM EDT [facility] Work Phone: Patient Education [facility] Work Phone: Patient referral [facility] Work Phone: End: 09-07-2024 PET+CT Guidance for localization of tumor of Skull base to mid-thigh-- W 18F-FDG IV NM PET/CT SKULL-THIGH INITIAL Radiology Routine 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, unspecified follicular lymphoma type (HCC) 1 Occurrences starting 08/09/2023 until 09/07/2024 [facility] Work Phone: Comment on above: 1 Occurrences starti ng 08/09/2023 until 09/07/2024 PET+CT Guidance for localization of tumor of Skull base to mid-thigh-- W 18F-FDG IV NM PET/CT SKULL-THIGH INITIAL Radiology Routine 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, unspecified follicular lymphoma type (HCC) 08/24/2023 9:47 AM EDT [facility] Work Phone: End: 12-20-2023 Radiologic exam chest 2 views XR CHEST 2V FRONTAL/LAT Radiology Routine Acute cough Bronchitis Weight loss 1 Occurrences starting 11/20/2022 until 12/20/2023 [facility] Work Phone: Comment on above: 1 Occurrences starti ng 11/20/2022 until 12/20/2023 Radiologic exam ches t 2 views XR CHEST 2V FRONTAL/LAT Radiology Routine Acute cough Bronchitis Weight loss 11/20/2022 12:18 PM EDT [facility] Work Phone: [facility] Immunizations Immunization Date Immunization Notes Care Provider Juan A valenzuela 06-03-2017 influenza virus vaccine, unspecified formulation Ct (I-Stat) Work Phone: [facility] 04-10-2001 Influenza virus vaccine [facility] Payers Date Payer Category Payer Self-pay [id number] 2013 [employer] BLUE CARD TRADITIONAL OOS [id number] 2013 Unknown ANTH BLUE CARD TRADITIONAL OOS [id number] 2013-Present [phone] [address] [place] [address] Indemnity [id number] 2003 Unknown [id number] 2001 Medicare [id number] 2001 Medicare [id number] Unknown [id number] Unknown [id number] Unknown [id number] Unknown [id number] Unknown [id number] Unknown [id number] [id number] Unknown [id number] Unknown [id number] Unknown [id number] Social History Date Type Detail Facility Start: 06-13-2022 End: 07-07-2024 Tobacco smoking status NHIS Smokes tobacco daily [facility] History of tobacco use Cigarette Smoker [facility] Start: 06-13-2022 End: 11-27-2022 Cigarettes smoked current (pack per day) - Reported 0.5 [facility] Work Phone: Start: 06-13-2022 End: 07-07-2024 Tobacco use and exposure Smokeless tobacco non-user [facility] Start: 06-13-2022 End: 09-13-2024 Alcohol intake Current non-drinker of alcohol (finding) [facility] Start: 06-13-2022 Tobacco Comment quitting [facility] Start: 1935 Sex Assigned At Not on file [facility] Start: 06-13-2022 End: 10-02-2022 Tobacco smoking status NHIS Unknown if ever smoked [facility] Start: 1935 Sex Assigned At Male [facility] Start: 11-20-2022 End: 11-27-2022 Tobacco use panel [facility] Work Phone: National Score (1-10 0), lower number is lower risk Not on file [facility] Work Phone: Start: 09-18-2024 End: 10-23-2024 Tobacco smoking status NHIS Current Heavy tobacco smoker [facility] Start: 09-20-2024 Sex Male (finding) [facility] Functional Status Date Assessment Result Facility 10-24-2024 Functional status Bedrest [facility] Work Phone: 01-26-2014 Are you deaf, or do you have serious difficulty hearing No 01/26/2014 11:38 AM Carol Ya Lpn [facility] Work Phone: 01-26-2014 Are you blind, or do you have serious difficulty seeing, even when wearing glasses No 01/26/2014 11:38 AM Carol Ya Lpn [facility] 01-26-2014 Do you have serious difficulty walking or climbing stairs No 01/26/2014 11:38 AM Carol Ya Lpn [facility] 01-26-2014 Do you have difficul ty dressing or bathing No 01/26/2014 11:38 AM Carol Ya Lpn [facility] 01-26-2014 Because of a physica l, mental, or emotional condition, do you have difficulty doing errands alone such as visiting a physician's office or shopping No 01/26/2014 11:38 AM Carol Ya Lpn [facility] Mental Status Date Assessment Result Facility 10-23-2024 Cognitive function Touch/Shaking [facility] Work Phone: 10-02-2022 Cognitive function Level Of Cons ciousness Awake;Alert;Appropriate;Fol lows Commands [facility] Work Phone: 01-26-2014 Because of a physica l, mental, or emotional condition, do you have serious difficulty concentrating, remembering, or making decisions No 01/26/2014 11:38 AM EDT Carol Colby Lpn [facility] Clinical Notes 04-27-2014 to 10-24-2024 Note Date & Type Note Facility 10-24-2024 Consult note [facility] 10-24-2024 Discharge summary [facility] 10-24-2024 Discharge summary Note Date/Time October 24, 2024 12:15pm [facility] Medical Records Department [address] [place] [address] Discharge Summary 10/24/24 0814 MR#: [id number] Acct: [id number] Name: VICK ROMAN Rep #:[id number] : 1935 89 From: Anna QUIROGA PCP: [...] mg tablet,delayed release 81 mg PO QDAY [facility] 09/18/24 losartan 50 mg-hydrochlorothiazide 12.5 mg tablet 0.5 tab PO QDAY blood urmkxqqb36/23/25 acetaminophen 500 mg tablet 1,000 mg (2 [...] 81.4 H, Lymph % (Auto) 10.4 L, Woods % (Auto) 7.5, Eos % (Auto) 0.0, [...] Ortiz MD; Dr. Stanley Kaiser MD~ Signed [facility] Work Phone: 1(684) 433-321306-10-2025 [facility] Medical Records Department [address] [place] [address] Discharge Summary 10/24/24813 MR#: [id number] Acct: [id number] Name: VICK ROMAN Rep #: [id number] : 1935 89 From: Anna QUIROGA PCP: Dr. Stanley Kaiser MD Status:DIS IN Location: ICU ICU-1 Providers Date of Admission: 10/23/24 Primary Care [...] 81.4 H, Lymph % (Auto) 10.4 L, Woods % (Auto) 7.5, Eos % (Auto) 0.0, [...] Patients > 75 ye (more content not included)...[facility] 10-23-2024 Consult note Author Elkin Larson [facility] Note Date/Time October 24, 2024 12:1 5pm [facility] Medical Records Department [address] [place] [address] Anesthesia Postop Eval II 10/23/24 1634 MR#: [id number] Acct: [id number] Name: VICK ROMAN Rep #:[id number] : 1935 89 From: Elkin Larson MD PCP: Dr. Stanley Kaiser MD Status:ADM I N Y Race: C Location: ICU [facility] -1 Anesthesia Postop Eval I Sum Postop Eval Completion status Anesthesia document: Postop Eval 1 completed: Yes Anesthesia Postop Eval I Summary Anesthesia Postop Eval I Summary: Anesthesia Postop Eval I: Assessment Summary Airway patent Yes 10/23/24 15:55 PORTRAIT ARTIST.APAT Spontaneous unlabored Yes 10/23/24 15:55 PORTRAIT ARTIST.APAT respirations Mental status Awake,Confused 10/23/24 15:55 PORTRAIT ARTIST.APAT nausea No 10/23/24 15:55 PORTRAIT ARTIST.APAT Vomiting No 10/23/24 15:55 PORTRAIT ARTIST.APAT Anesthesia Postop Eval I: Fluid Summary Crystalloid volume administer 1,200 10/23/24 15:55 PORTRAIT ARTIST.APAT (ml) Colloids volume administered ( ml) Blood Product volume administered (ml) Total IV fluid infused 1,200 10/23/24 15:55 PORTRAIT ARTIST.APAT Anesthesia Postop Eval I: Summary Notes Anesthesia Complication No 10/23/24 15:55 PORTRAIT ARTIST.APAT Anesthesia Complication Comment: Post-operative progress note Anesthesia: Postop Eval II Evaluation Mental status: Awake Pain Level: 0 nausea: No Vomiting: No 10/23/24 1634 <Electronically signed by Elkin Larson MD > Date _ [facility]arson [facility] Signature: Date CC: ~ Signed [facility] Work Phone: 1(403) 154-269606-09-2025 Consult note Author Edmund Hyatt [facility] Note Date/Time October 23, 2024 3:55p [facility] Medical Records Department [address] [place] [address] Anesthesia Postop Eval I 10/23/24 1554 MR#: [id number] Acct: [id number] Name: VICK ROMAN Rep #:[id number] : 1935 89 From: Edmund Hyatt CRNA PCP: Dr. Stanley Kaiser MD Status:ADM I N Y Race: C [facility]esthesia: Postop Eval I Current Vital Signs [...] 1555 <Electronically signed by Edmund da silva CRNA> Date _ Edmund Hyatt CRNA Cosigner Signature: Date CC: ~ Signed [facility] Work Phone: 1(633) 871-205306-09-2025 Procedure note [facility] Medical Records Department [address] [place] [address] Operative Report 10/23/24 1646 MR#: [id number] Acct: [id number] Name: VICK ROMAN Rep #:[id number] : 1935 89 From: Eriberto Ortiz MD PCP: Dr. 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 [...] the micropuncture sheath exchanged for short 6 Greek sheathdilate the tract. This sheath was then withdrawn and a pair of Pro-glide suturemediated closure devices were deployed in preclose technique. After suture device deployment an 8 Greek sheath was advanced over the wire and [...] the micropuncture sheath exchanged for short 6 Greek sheath. There is significant amount of tortuosity in the iliac artery and the Bentson wire would not navigate into the aorta so a KMP catheter was advanced through the 6 Greek sheath and the Bentson wire exchanged for an angled Glidewire whichwas advanced into the abdominal aorta. The catheter was then advanced and the wire withdrawn and a Bentson wire advanced after which the catheter and short 6 Greek sheath were withdrawn and a pair of Pro-glide suture mediated closure devices were deployed in preclose technique. Once the devices were deployed an 8 Greek sheath was advanced into the ipsilateral proximal [...] L2 vertebral body. The right femoral 8 Greek sheath was then withdrawn and the Endologix Gaston 29 mm main body was advanced into [...] 140 was then selected. Theleft femoral 8 Greek sheath was withdrawnand the limb advanced in the position with satisfactory overlap into the main body and deployed. The delivery system was then withdrawn and exchanged for a short 10 Greek sheath. Once the polymer infusion was completed the main body device delivery system was detached and withdrawn and a 14 Greek sheath advanced over the wire and positioned [...] be a fairly brisk endoleak. The right pljtoeb46 Greek sheath was exchanged for 16 Greek sheath and a Palmaz [id number] was brought [...] popliteal pulses bilateral Complications Complications: No 10/23/24 5129 Cosigner Signature (if applicable): CC: Dr. Elkin Larson MD; Dr. Eriberto Ortiz MD; Dr. Brayan Breaux MD; Dr. Stanley Kaiser MD~ Signed [facility]06-09-2025 Consult note [facility] Medical Records Department [address] [place] [address] Anesthesia Postop Eval I 10/23/24 1554 MR#: [id number] Acct: [id number] Name: VICK ROMAN Rep #:[id number] : 1935 89 From: Edmund Hyatt CRNA PCP: Dr. Stanley Kaiser MD Status:ADM I N Y Race: C [facility] Anesthesia: Postop Eval I Current Vital Signs [...] Eval 1 completed: Yes 10/23/24 1555 n PORTRAIT ARTIST> Date _ Edmund Hyatt CRNA Cosigner Signature: Date CC: ~ Signed [facility]06-09-2025 History and physical note Author Eriberto Ortiz [facility] Note Date/Time October 23, 2024 11:19 am [facility] Medical Records Department [address] [place] [address] History & Physical Exam 10/23/24 1116 MR#: [id number] Acct: [id number] Name: VICK ROMAN Rep #:[id number] : 1935 89 From: Eriberto Ortiz MD PCP: Dr. Stanley Kaiser MD Status:ADM I N Location: [facility] AC-TB A-3 HPI - General General Date of Admission: 10/23/24 HPI Narrative VICK ROMAN, is a 89 M who presents with AAA that has been followed with serial imaging for several years. Recent imaging revealed growth to 5.9 cm and anatomy that was amenable to endovascular repair. He presents now for elective EVAR. [facility] Medical History Alcohol use Loss of hearing [...] Ortiz MD; Dr. Stanley Kaiser MD~ Signed [facility] Work Phone: 1(545) 510-662406-09-2025 Consult note Author Elkin Larson [facility] Note Date/Time October 23, 2024 9:25a m [facility] Medical Records Department [address] [place] [address] Pre-Anesthesia Evaluation 10/23/24924 MR#: [id number] Acct: [id number] Name: VICK ROMAN Rep #:[id number] : 1935 89 From: Elkin Larson MD PCP: Dr. Stanley Kaiser MD Status:PRE I N Y Race: C Location: [facility] ASA Classification* ASA Classification ASA Classification: 3 [...] 06:25 09/17/24 Hct 43.9 % (40-54) 09/17/24 06:09/17/24 Plt Count 229 K/mm3 (150-450) 09/17/24 06:25 09/17/24 CHEMISTRY Potassium 3.8 mmol/L (3.3-5.1) 10/10/24 09:26 10/10/24 Sodium 139 mmol/L (133-145) 10/10/24 09:10/10/24 Magnesium 1.8 mg/dL (1.5-2.2) 10/10/24 14:29 10/10/24 Phosphorus 2.7 mg/dL (2.7-4.5) 10/10/24 14:29 10/10/24 BUN 25 mg/dL (4-19) H 10/10/24 09:25 Creatinine 0.95 mg/dL (0.70-1.20) 10/10/24 09:26 10/10/24 Glucose 105 mg/dL (70-99) H 10/10/24 09:26 10/10/24 COAG PT 13.0 SECONDS (11.7-14.9) 06/15/22 13:30 Pre-Assessment Diagnosis/Proposed Procedure Planned Operative Procedure(s): ENDOVASCULAR REPAIR AAA Anesthesia History Anesthesia History - yard attendant: Anesthesia History - yard attendant Hx Hospitalization No 10/06/24 09:07 Any Problems [...] take am of surgery PONV PONV - yard attendant: PONV - yard attendant Female No 10/06/24 09:07 HX of Motion [...] 09/17/24 06:12 Respiratory Assessment Respiratory Assessment - yard attendant: Respiratory Tract Infection Hx - yard attendant Hx Respiratory Tract Infection No 10/06/24 09:07 STOP Sleep Apnea STOP Sleep Apnea - yard attendant: STOP Sleep Apnea - yard attendant Hx Hypertension Yes: JUST STARTED BP MED [...] Tobacco Use History Tobacco Use History - yard attendant: Tobacco Use History - yard attendant Tobacco Use Smoking Status Heavy Smoker (>10/day) 10/06/24 09:07 Hx Tobacco Use Yes 10/06/24 09:07 Years Smoking Packs Smoked per Day Smoking Cessation Date was within the last 15 years Hx Smoking Cessation Date Hx Smoking Cessation Counseling Hematologic Medial History Hematologic Hx - yard attendant: Hematologic Medical Hx - hospital internship Hx of Blood Transfusion No 10/06/24 09:07 [...] confused, unrespo /Reproduction History /Reproductive History - yard attendant: /Reproductive Hx- yard attendant Hx Now No 10/06/24 09:07 Gestational Age [...] MD Cosigner Signature: Date CC: ~ Signed [facility] Work Phone: 1(904) 317-723406-09-2025 History and physical note [facility] Medical Records Department [address] [place] [address] History & Physical Exam 10/23/24 1116 MR#: [id number] Acct: [id number] Name: VICK RAIN Garcia Rep #:[id number] : 1935 89 From: Eriberto Ortiz MD PCP: Dr. Stanley Kaiser MD Status:ADM I N Location: [facility] A-3 HPI - General General Date of Admission: 10/23/24 HPI Narrative VICK ROMAN, is a 89 M who presents with AAA that has been followed with serial imaging for several years. Recent imaging revealed growth to 5.9 cm and anatomy that was amenable to endovascular repair. He presents now for elective EVAR. [facility] Medical History Alcohol use Loss of hearing [...] Ortiz MD; Dr. Stanley Kaiser MD~ Signed [facility]06-09-2025 [facility] Medical Records Department [address] [place] [address] History Physical Exam 10/23/24 1116 MR#: [id number] Acct: [id number] Name: VICK ROMAN Rep #: [id number] : 1935 89 From: Eriberto Ortiz MD PCP: Dr. Stanley Kaiser MD Status:ADM IN Location: [place] [address] HPI - General General Date of Admission: 10/23/24 HPI Narrative VICK ROMAN, is a 89 M who presents with AAA that has been followed with serial imaging for several years. Recent imaging revealed growth to 5.9 cm and anatomy that was amenable to endovascular repair. He presents now for elective EVAR. [facility] Medical History Alcohol use Loss of hearing [...] Eriberto Ortiz MD; [facility]. Stanley Kaiser MD [facility] Consult note [facility] Medical Records Department [address] [place] [address] Pre-Anesthesia Evaluation 10/23/24924 MR#: [id number] Acct: [id number] Name: VICK ROMAN Rep #:[id number] : 1935 89 From: Elkin Larson MD PCP: Dr. Stanley Kaiser MD Status:PRE I N Y Race: C Location: [facility] ASA Classification* ASA Classification ASA Classification: 3 [...] 09/17/24 CHEMISTRY Potassium 3.8 mmol/L (3.3-5.1) 10/10/24 09:10/10/24 Sodium 139 mmol/L (133-145) 10/10/24 09:26 10/10/24 [...] REPAIR AAA Anesthesia History Anesthesia History - yard attendant: Anesthesia History - yard attendant Hx Hospitalization No 10/06/24 09:07 Any Problems [...] take am of surgery PONV PONV - yard attendant: PONV - yard attendant Female No 10/06/24 09:07 HX of Motion [...] 09/17/24 06:12 Respiratory Assessment Respiratory Assessment - yard attendant: Respiratory Tract Infection Hx - yard attendant Hx Respiratory Tract Infection No 10/06/24 09:07 STOP Sleep Apnea STOP Sleep Apnea - yard attendant: STOP Sleep Apnea - yard attendant Hx Hypertension Yes: JUST STARTED BP MED [...] Tobacco Use History Tobacco Use History - yard attendant: Tobacco Use History - yard attendant Tobacco Use Smoking Status Heavy Smoker (>10/day) 10/06/24 09:07 Hx Tobacco Use Yes 10/06/24 09:07 Years Smoking Packs Smoked per Day Smoking Cessation Date was within the last 15 years Hx Smoking Cessation Date Hx Smoking Cessation Counseling Hematologic Medial History Hematologic Hx - yard attendant: Hematologic Medical Hx - hospital internship Hx of Blood Transfusion No 10/06/24 09:07 [...] confused, unrespo /Reproduction History /Reproductive History - yard attendant: /Reproductive Hx- yard attendant Hx Now No 10/06/24 09:07 Gestational Age [...] and no additional complaints, except as documented. 10/23/24 0925 > Date _ Elkin Bernal Signature: Date CC: ~ Signed [facility]05-06-2025 Telephone encounter Note* Telephone Encounter - Britta Hernandez LPN - 09/19/2024 9:53 AM EDT Spoke with pt., given lab results, voiced understandibng. Britta Hernandez LPN [facility]05-06-2025 Miscellaneous Notes* Telephone Encounter - Britta Hernandez LPN - 09/19/2024 9:53 AM EDT Spoke with pt., given lab results, voiced understandibng. Britta Hernandez LPN * Telephone Encounter - Tomas Fontenot DO - 09/18/2024 5:03 PM EDT Can let him know total bilirubin back to normal. Direct bilirubin slightly elevated but that is of no consequence. [facility] Telephone encounter Note * Telephone Encounter - Tomas Fontenot DO - 09/18/2024 5:03 PM EDT Can let him know total bilirubin back to normal. Direct bilirubin slightly elevated but that is of no consequence. 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 I added a direct bilirubin and filed both orders. Tomas Fontenot DO [facility]05-04-2025 Miscellaneous Notes* Telephone Encounter - Tomas Fontenot [...] lunch. Tomas Fontenot DO [facility] Telephone encounter Note * Telephone Encounter - [...] drawn. please sign pended order Shawna Borjas [facility]05-04-2025 Telephone encounter Note* Telephone Encounter - Tomas Fontenot DO - 09/17/2024 1:44 PM EDT His bilirubin was a little elevated on lab work from last week. Please advise him to have another CMP but do so about an hour after eating breakfast or lunch. Tomas Fontenot DO [facility]05-02-2025 Radiology Diagnostic study note [facility] Imaging Services [address] [place] [address] CTA Abd/Pelvis W/WO Contrast MR#: [id number] Acct: [id number] Name: VICK ROMAN Rep #: [id number] : 1935 M 89 From: Antonia Manley MD PCP: Dr. 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 Other nonvascular: Nodules in the LEFT lung base up to 18 mm were not present onprevious head nurse images, possibly calcified however this is not [...] 18 mm were not present on previous head nurse images, possibly calcified however this is not definite. Recommend CT chest. 5. 2.5 x 1.7 cm nonspecific nodular lesion along the posterior aspect of the cecum/ascending colon previously measured 2.3 x 1.9 cm on 06/13/2022. Given that the appendix is not identified, this could reflectan abnormal appendix. Mucocele/lo (more content not included)...[facility]04-30-2025 NoteHNO ID: [id number] Author: TOMAS FONTENOT, DO Service: ? Author [...] within constraints of artifact from dental amalgam. Education Reporter spaces appear normal. Infrahyoid Neck: Hypopharynx, larynx, [...] CD138 (B-A38) negative BCL-2 (bcl-2/100/D5) positive BCL-6 (JL736I/A8) negative Cyclin D1/BCL-1 (SP4) negative MUM1 (MRQ-43) negative C-MYC (Y69) negative Mesick (polyclonal) negative Lambda (polyclonal) negative P53 (DO-7) [...] DX W/WO COLLJ SPE (more content not included)...[facility]04-30-2025 History of Present illness Narrative* Tomas Fontenot, - 09/13/2024 10:34 AM EDT Oncologic problem(s): [...] within constraints of artifact from dental amalgam. Education Reporter spaces appear normal. Infrahyoid Neck: Hypopharynx, larynx, [...] CD138 (B-A38) negative BCL-2 (bcl-2/100/D5) positive BCL-6 (LB593J/A8) negative Cyclin D1/BCL-1 (SP4) negative MUM1 (MRQ-43) negative C-MYC (Y69) negative Mesick (polyclonal) negative Lambda (polyclonal) negative P53 (DO-7) [...] Colonoscopy COLONOSCOPY VIA STOMA W OR W/O [facility] 04/27/14 PAST SURGICAL HISTORY OF lymph node [...] necessary. Tomas Fontenot DO documented in this encounterCinc[facility] NoteHNO ID: [id number] Author: STANLEY KAISER MD Service: ? Author [...] Stanley Kaiser RTO in six months and prn.[facility]02-21-2025 History of Present illness Narrative* Stanley Kaiser [...] six months and prn. documented in this encounterCinc[facility]10-30-[facility]24 NoteHNO ID: [id number] Author: TOMAS FONTENOT, DO Service: ? Author [...] within constraints of artifact from dental amalgam. Education Reporter spaces appear normal. Infrahyoid Neck: Hypopharynx, larynx, [...] CD138 (B-A38) negative BCL-2 (bcl-2/100/D5) positive BCL-6 (RH180B/A8) negative Cyclin D1/BCL-1 (SP4) negative MUM1 (MRQ-43) negative C-MYC (Y69) negative Mesick (polyclonal) negative Lambda (polyclonal) negative P53 (DO-7) [...] W/WO COLLJ SPEC BR/W (more content not included)...[facility]10-30-2024 History of Present illness Narrative* Tomas Fontenot, [...] within constraints of artifact from dental amalgam. Education Reporter spaces appear normal. Infrahyoid Neck: Hypopharynx, larynx, [...] CD138 (B-A38) negative BCL-2 (bcl-2/100/D5) positive BCL-6 (ZQ913Z/A8) negative Cyclin D1/BCL-1 (SP4) negative MUM1 (MRQ-43) negative C-MYC (Y69) negative Mesick (polyclonal) negative Lambda (polyclonal) negative P53 (DO-7) [...] edema. SKIN: No jaundice. LABS: Latest Ref Rng 03/15/2024 WBC 3.70 - 11.00 k/uL 8.12 [...] Abs Lymph 1.00 - 4.00 k/uL 2.58 Woods% % 10.1 Abs Woods <0.87 k/uL 0.82 Eosin% % 3.1 Abs [...] smoke. He is not interested in quitting, "I have been smoking for 77 years so no sense trying to quit now." -He made it clear he would not [...] which included preparing to see the patient, lyac-wi-tzsn patient care, completing clinical documentation, performing a medically appropriate examination, communicating with other HCPs (not separately reported), and communicating results to the patient/family/caregiver. Tomas Fontenot DO documented in this encounterCinc[facility]08-16-2024 Telephone encounter Note * Telephone Encounter - Shruti Galeano APRN.CNP - 12/31/2023 2:39 PM EDT The following approved medication requests have been transmitted electronically. Requested Prescriptions Pending Prescriptions Disp Refills atorvastatin (LIPITOR) 80 mg tablet 90 tablet 1 Sig: Take 1 tablet by mouth once daily. Shruti Galeano APRN.CNP [facility]08-16-2024 Miscellaneous Notes* Telephone Encounter - Shruti Galeano [...] 31, 2023 2:26 PM documented in this encounterCincinnati [facility]08-16-2024 Telephone encounter Note * Telephone Encounter - [...] Christian LPN December 31, 2023 2:26 PM [facility]08-14-2024 Instructions* Patient Instructions* Stanley Kaiser MD - 12/29/2023 10:32 AM EDT Due to see Dr Ortiz documented in this encounterCincinnati Shriners Hospital08-14-2024 NoteHNO ID: [id number] Author: STANLEY KAISER MD Service: ? Author [...] Abs Lymph 1.00 - 4.00 k/uL 2.67 Woods% % 9.7 Abs Woods <0.87 k/uL 0.86 Eosin% % 1.9 Abs [...] 124/66 Pulse 62 Ht 160 cm (5' 3") Wt 57.6 kg (127 lb) SpO2 96% [...] - Controlled - Cont (more content not included)...[facility]08-14-2024 History of Present illness Narrative* Stanley Kaiser [...] Abs Lymph 1.00 - 4.00 k/uL 2.67 Woods% % 9.7 Abs Woods <0.87 k/uL 0.86 Eosin% % 1.9 Abs [...] 124/66 Pulse 62 Ht 160 cm (5' 3") Wt 57.6 kg (127 lb) SpO2 96% [...] A1C Stanley Kaiser MD documented in this encounterCincinnati [facility]08-01-2024 Telephone encounter Note * Telephone Encounter - Becky Aly MA - 12/16/2023 10:46 AM EDT Patient informed and verbalized understanding. Becky Aly MA [facility]08-01-2024 Miscellaneous Notes* Telephone Encounter - Becky Aly MA - 12/16/2023 10:46 AM EDT Patient informed and verbalized understanding. Becky Aly MA * Telephone Encounter - Stanley Kaiser MD - 12/16/2023 8:24 AM EDT Let him know his average sugars are stable-(hga1c) documented in this encounterCincinnati [facility]08-01-2024 Telephone encounter Note * Telephone Encounter - Stanley Kaiser MD - 12/16/2023 8:24 AM EDT Let him know his average sugars are stable-(hga1c) [facility]07-31-2024 NoteHNO ID: [id number] Author: TOMAS FONTENOT, DO Service: ? Author [...] within constraints of artifact from dental amalgam. Education Reporter spaces appear normal. Infrahyoid Neck: Hypopharynx, larynx, [...] CD138 (B-A38) negative BCL-2 (bcl-2/100/D5) positive BCL-6 (GI187H/A8) negative Cyclin D1/BCL-1 (SP4) negative MUM1 (MRQ-43) negative C-MYC (Y69) negative Mesick (polyclonal) negative Lambda (polyclonal) negative P53 (DO-7) [...] 04/27[facility]14[facility] No date: PAST SURGICAL HISTORY OF Comment: lymph node biopsy 03/07/13: PROCTOS (more content not included)...[facility] 12-15-2023 History of Present illness Narrative* Tomas Fontenot, DO - 12/15/2023 9:41 AM EDT Oncologic problem(s): [...] within constraints of artifact from dental amalgam. Education Reporter spaces appear normal. Infrahyoid Neck: Hypopharynx, larynx, [...] CD138 (B-A38) negative BCL-2 (bcl-2/100/D5) positive BCL-6 (SU682U/A8) negative Cyclin D1/BCL-1 (SP4) negative MUM1 (MRQ-43) negative C-MYC (Y69) negative Mesick (polyclonal) negative Lambda (polyclonal) negative P53 (DO-7) [...] 04/27/14: COLONOSCOPY VIA STOMA W OR W/O [facility] No date: PAST SURGICAL HISTORY OF Comment: [...] edema. SKIN: No jaundice. LABS: Latest Ref [facility] 12/15/2023 WBC 3.70 - 11.00 k/uL 8.90 [...] Abs Lymph 1.00 - 4.00 k/uL 2.67 Woods% % 9.7 Abs Woods <0.87 k/uL 0.86 Eosin% % 1.9 Abs [...] smoke. He is not interested in quitting, "I have been smoking for 77 years so no sense trying to quit now." -He made it clear he would not [...] which included preparing to see the patient, itqv-ce-cwsq patient care, completing clinical documentation, obtaining and/or reviewing separately obtained history, performing a medically appropriate examination, counseling and educating the pat ient/family/caregiver, ordering medications, tests, or procedures, communicating with other HCPs (not separately reported), and communicating results to the patient/family/caregiver. Tomas Fontenot DO documented in this encounterCincinnati [facility]05-08-2024 NoteHNO ID: [id number] Author: TOMAS FONTENOT DO Service: ? Author [...] within constraints of artifact from dental amalgam. Education Reporter spaces appear normal. Infrahyoid Neck: Hypopharynx, larynx, [...] CD138 (B-A38) negative BCL-2 (bcl-2/100/D5) positive BCL-6 (LW231U/A8) negative Cyclin D1/BCL-1 (SP4) negative MUM1 (MRQ-43) negative C-MYC (Y69) negative Mesick (polyclonal) negative Lambda (polyclonal) negative P53 (DO-7) [...] W/WO COLLJ SPEC BR/W (more content not included)...[facility]05-08-2024 History of Present illness Narrative* Tomas Fontenot DO - 09/22/2023 10:04 AM EDT Oncologic problem(s): [...] within constraints of artifact from dental amalgam. Education Reporter spaces appear normal. Infrahyoid Neck: Hypopharynx, larynx, [...] CD138 (B-A38) negative BCL-2 (bcl-2/100/D5) positive BCL-6 (GW242A/A8) negative Cyclin D1/BCL-1 (SP4) negative MUM1 (MRQ-43) negative C-MYC (Y69) negative Mesick (polyclonal) negative Lambda (polyclonal) negative P53 (DO-7) [...] edema. SKIN: No jaundice. LABS: Latest Ref Rn 06/16/2023 WBC 3.70 - 11.00 k/uL 7.47 [...] Abs Lymph 1.00 - 4.00 k/uL 2.55 Woods% % 9.1 Abs Woods <0.87 k/uL 0.68 Eosin% % 4.0 Abs [...] smoke. He is not interested in quitting, "I have been smoking for 77 years so no sense trying to quit now." -He made it clear he would not [...] which included preparing to see the patient, bylz-or-dqnp patient care, completing clinical documentation, obtaining and/or reviewing separately obtained history, performing a medically appropriate examination, counseling and educating the pat ient/family/caregiver, ordering medications, tests, or procedures, communicating with other HCPs (not separately reported), and communicating results to the patient/family/caregiver. Tomas Fontenot DO documented in this encounterCinc[facility]04-25-2024 NoteHNO ID: [id number] Author: LIBORIO ALMANZAR, RN Service: Nursing Author Type: Registered Nurse Type: Nursing Progress Note Filed: 09/09/2023 08:32 Note Text: Other: pt ready for OR, call light in reach, family called to bedside.[id number] Miscellaneous Notes* Telephone Encounter - Kim Storm - 08/31/2023 8:17 AM EDT Called pt and scheduled follow up after BMBX at [facility] 09/08. Kim Rangel * Telephone Encounter - Kim Storm - 08/27/2023 9:[address] guided biopsy right iliac bone mets at [facility]. Message sent to biopsy schedulers. OV 1-2 weeks after biopsy. documented in this encounterCincinnati [facility]04-12-2024 Telephone encounter Note * Telephone Encounter - Aleah Ryan - 08/27/2023 9:21 AM EDTSummary: Bone Biopsy Received request for bone biopsy at [place]. Sending to radiologist for approval. [facility]04-12-2024 Miscellaneous Notes* Telephone Encounter - Aleah Ryan - 08/27/2023 9:21 AM EDTSummary: Bone Biopsy Received request for bone biopsy at [place]. Sending to radiologist for approval. documented in this encounterCinc[facility]04-12-2024 History of Present illness Narrative* Tomas Fontenot [...] within constraints of artifact from dental amalgam. Education Reporter spaces appear normal. Infrahyoid Neck: Hypopharynx, larynx, [...] CD138 (B-A38) negative BCL-2 (bcl-2/100/D5) positive BCL-6 (SU128B/A8) negative Cyclin D1/BCL-1 (SP4) negative MUM1 (MRQ-43) negative C-MYC (Y69) negative Mesick (polyclonal) negative Lambda (polyclonal) negative P53 (DO-7) [...] COLONOSCOPY VIA STOMA W OR W/O [facility] 12/12/14 PAST SURGICAL HISTORY OF lymph node biopsy [...] edema. SKIN: No jaundice. LABS: Latest Ref Rng 06/16/2023 WBC 3.70 - 11.00 k/uL 7.47 [...] Abs Lymph 1.00 - 4.00 k/uL 2.55 Woods% % 9.1 Abs Woods <0.87 k/uL 0.68 Eosin% % 4.0 Abs [...] smoke. He is not interested in quitting, "I have been smoking for 77 years so no sense trying to quit now." -He made it clear he would not [...] which included preparing to see the patient, tpiv-to-rezx patient care, completing clinical documentation, obtaining and/or reviewing separately obtained history, performing a medically appropriate examination, counseling and educating the pat ient/family/caregiver, ordering medications, tests, or procedures, communicating with other HCPs (not separately reported), and communicating results to the patient/family/caregiver. Tomas Fontenot DO documented in this encounterCinc[facility]04-09-2024 History of Present illness Narrative* Viola Billings, RT(R) - 08/24/2023 8:30 AM EDT RADIOLOGY [...] PATIENT PRESENTS WITH AN IMPLANTABLE OR ATTACHED MANAGER COMPENSATION: No CREATININE: Creatinine Date Value Ref Range [...] FDG. No other medications given.. ADMINISTRATION TIME: 812 PATIENT DISCHARGED TO: Ambulatory patient, left MD department area. A Diagnostic radioactive procedure has taken place, with no further precautions necessary other than routine body substance precautions. More information regarding radiation safety can be found usingthis link: [email or web address]%20Nuclear%20Medicine%[email or web address] SIGNATURE: RT Hilario(Nathan) PATIENT NAME: Vick Roman DATE: August 24, 2023 TIME: 8:20 AM PAGER/CONTACT #: documented in this encounterCincinnati [facility]04-09-2024 NoteHNO ID: [id number] Author: VIOLA BILLINGS RT(R) Service: Nuclear Medicine Author Type: Technologist Type: [...] PATIENT PRESENTS WITH AN IMPLANTABLE OR ATTACHED MANAGER COMPENSATION: No CREATININE: Creatinine Date Value Ref Range [...] FDG. No other medications given.. ADMINISTRATION TIME: 812 PATIENT DISCHARGED TO: Ambulatory patient, left MD department area. A Diagnostic radioactive procedure has taken place, with no further precautions necessary other than routine body substance precautions. More information regarding radiation safety can be found using this link: [email or web address]%[email or web address] SIGNATURE: RT Hilario(R) PATIENT NAME: Vick Roman DATE: August 24, 2023 TIME: 8:20 AM PAGER/CONTACT #:[facility] [id number] History of Present illness Narrative* Tomas Fontenot, - 08/09/2023 1:32 PM EDT Patient referred [...] within constraints of artifact from dental amalgam. Education Reporter spaces appear normal. Infrahyoid Neck: Hypopharynx, larynx, [...] C (96.9 F), height 161.3 cm (5' 3.5"), weight 60.1 kg (132 lb 8 oz), [...] edema. SKIN: No jaundice. LABS: Latest Ref [facility] 06/16/2023 WBC 3.70 - 11.00 k/uL 7.47 [...] Abs Lymph 1.00 - 4.00 k/uL 2.55 Woods% % 9.1 Abs Woods <0.87 k/uL 0.68 Eosin% % 4.0 Abs [...] smoke. He is not interested in quitting, "I have been smoking for 77 years so no sense trying to quit now." --He made it clear he would not [...] which included preparing to see the patient, wznj-bh-wwwh patient care, completing clinical documentation, obtaining and/or reviewing separately obtained history, performing a medically appropriate examination, counseling and educating the pat ient/family/caregiver, ordering medications, tests, or procedures, communicating with other HCPs (not separately reported), and communicating results to the patient/family/caregiver. Tomas Fontenot DO documented in this encounterCinc[facility]03-22-2024 Miscellaneous Notes* Telephone Encounter - Shasha Messer [...] previous Dr Licea patient. documented in this encounterCinc[facility]02-14-2024 History of Present illness Narrative* Stanley Kaiser [...] Abs Lymph 1.00 - 4.00 k/uL 2.55 Woods% % 9.1 Abs Woods <0.87 k/uL 0.68 Eosin% % 4.0 Abs [...] 136/78 Pulse 62 Ht 167.6 cm (5' 6") Wt 59.2 kg (130 lb 9.6 oz) [...] (primary diagnosis) - explained waiting until end of July is unacceptable. Needs to see someone sooner. [...] follow. Stanley Kaiser MD documented in this encounterCinc[facility]02-03-2024 Miscellaneous Notes* Telephone Encounter - Kim Storm - 06/19/2023 10:35 AM EST Spoke with patient spouse and scheduled for first available at [place]. Kim Rangel * Telephone Encounter - Kaia [...] and get set up. documented in this encounterCinc[facility]02-02-2024 Miscellaneous Notes* Telephone Encounter - Stanley Kaiser [...] A1c in six months documented in this encounterCleveland [id number] History of Present illness Narrative* Denise Ramesh RT(R) - 06/18/2023 10:40 AM EST Radiology [...] PATIENT PRESENTS WITH AN IMPLANTABLE OR ATTACHED MANAGER COMPENSATION: No ALLERGIES: Reviewed and unchanged CONTRAST ALLERGY: [...] 2023 TIME: 1:47 PM documented in this encounterCincinnati [facility]02-01-2024 Miscellaneous Notes* Telephone Encounter - Vickie Morgan LPN - 06/17/2023 12:15 PM EST A1c has been added. Vickie Moragn LPN * Telephone Encounter - Stanley Kaiser MD - 06/17/2023 8:28 AM EST Labs are stable, except sugars are up. Can we add A1c. If not have him come in for it documented in this encounterCinc[facility]08-11-2023 History of Present illness Narrative* Stanley Kaiser [...] 134/86 Pulse 62 Ht 167.6 cm (5' 6") Wt 56.2 kg (124 lb) SpO2 96% [...] BASIC Stanley Kaiser MD documented in this encounterCincinnati [facility]08-08-2023 History of Present illness Narrative* Amna Hu RT(R) - 12/22/2022 1:10 PM EDT Radiology [...] 22, 2022 1:09 PM documented in this encounterCincinnati [facility] Hospital2023 History of Present illness Narrative* Stanley Kaiser [...] Colonoscopy COLONOSCOPY VIA STOMA W OR W/O [facility] 04/27/14 PAST SURGICAL HISTORY OF lymph node [...] 124/66 Pulse 78 Ht 167.6 cm (5' 6") Wt 55.8 kg (123 lb) SpO2 93% [...] RTO in four weeks. documented in this encounterCincinnati [facility]07-10-2023 Miscellaneous Notes* Telephone Encounter - Becky Aly [...] he is feeling better. documented in this encounterCincinnati [facility]rin[facility] Hospital07-08-2023 Miscellaneous Notes* Telephone Encounter - Becky Aly [...] up in one week. documented in this encounterCincinnati [facility]riners Hospital07-07-2023 History of Past illness Narrative* Problem Noted Date Diagnosed Date Resolved Date Altered bowel function 11/20/202212/25 History of colonic polyps 11/20/2022 Skin lesion 11/20/2022 12/25/2022 Benign neoplasm of colon 04/27/201404/2014 documented as of this encounter (statuses as of 12/26/2022) [facility] History of Past illness Narrative* Problem Noted Date Diagnosed Date Resolved Date Altered bowel function 11/20/202212/25 History of colonic polyps 11/20/2022 Skin lesion 11/20/2022 12/25/2022 Benign neoplasm of colon 04/27/201404/2014 documented as of this encounter (statuses as of 06/19/2023) [facility] History of Past illness Narrative* Problem Noted Date Diagnosed Date Resolved Date Altered bowel function 11/20/202212/25 History of colonic polyps 11/20/2022 Skin lesion 11/20/2022 12/25/2022 Benign neoplasm of colon 04/27/201404/2014 documented as of this encounter (statuses as of 06/19/2023) [address]07-2023 History of Past illness Narrative* Problem Noted Date Diagnosed Date Resolved Date Altered bowel function 11/20/202212/25 History of colonic polyps 11/20/2022 Skin lesion 11/20/2022 12/25/2022 Benign neoplasm of colon 04/27/201404/2014 documented as of this encounter (statuses as of 06/23/2023) [address]07-2023 History of Past illness Narrative* Problem Noted Date Diagnosed Date Resolved Date Altered bowel function 11/20/202212/25 History of colonic polyps 11/20/2022 Skin lesion 11/20/2022 12/25/2022 Benign neoplasm of colon 04/27/201404/2014 documented as of this encounter (statuses as of 06/29/2023) [address]07-2023 History of Past illness Narrative* Problem Noted Date Diagnosed Date Resolved Date Altered bowel function 11/20/202212/25 History of colonic polyps 11/20/2022 Skin lesion 11/20/2022 12/25/2022 Benign neoplasm of colon 04/27/201404/2014 documented as of this encounter (statuses as of 06/30/2023) [address]07-2023 History of Past illness Narrative* Problem Noted Date Diagnosed Date Resolved Date Altered bowel function 11/20/202212/25 History of colonic polyps 11/20/2022 Skin lesion 11/20/2022 12/25/2022 Benign neoplasm of colon 04/27/201404/2014 documented as of this encounter (statuses as of 08/06/2023) [address]07-2023 History of Past illness Narrative* Problem Noted Date Diagnosed Date Resolved Date Altered bowel function 11/20/202212/25 History of colonic polyps 11/20/2022 Skin lesion 11/20/2022 12/25/2022 Benign neoplasm of colon 04/27/201404/2014 documented as of this encounter (statuses as of 08/10/2023) [address]07-2023 History of Past illness Narrative* Problem Noted Date Diagnosed Date Resolved Date Altered bowel function 11/20/202212/25 History of colonic polyps 11/20/2022 Skin lesion 11/20/2022 12/25/2022 Benign neoplasm of colon 04/27/201404/2014 documented as of this encounter (statuses as of 08/25/2023) [address]07-2023 History of Past illness Narrative* Problem Noted Date Diagnosed Date Resolved Date Altered bowel function 11/20/202212/25 History of colonic polyps 11/20/2022 Skin lesion 11/20/2022 12/25/2022 Benign neoplasm of colon 04/27/201404/2014 documented as of this encounter (statuses as of 08/25/2023) [address]07-2023 History of Past illness Narrative* Problem Noted Date Diagnosed Date Resolved Date Altered bowel function 11/20/202212/25 History of colonic polyps 11/20/2022 Skin lesion 11/20/2022 12/25/2022 Benign neoplasm of colon 04/27/201404/2014 documented as of this encounter (statuses as of 08/27/2023) [address]07-2023 History of Past illness Narrative* Problem Noted Date Diagnosed Date Resolved Date Altered bowel function 11/20/202212/25 History of colonic polyps 11/20/2022 Skin lesion 11/20/2022 12/25/2022 Benign neoplasm of colon 04/27/201404/2014 documented as of this encounter (statuses as of 08/31/2023) [address]07-2023 History of Present illness Narrative* Asya King, RT(R) - 11/20/2022 12:20 PM EDT Radiology [...] 20, 2022 12:13 PM documented in this encounterCincinnati [facility]rin[facility]07-07-2023 History of Present illness Narrative* Stanley Kaiser MD - 11/20/2022 11:38 AM EDT Patient presents with: Chest Congestion HPI: Patient presents today for office visit for chest congestion with slight productive cough thatstarted last 11/12/22. He smokes a pack of cigarettes a day. [place] [facility] [facility] [facility] [address] when the smoke from LX[place] was really bad. Refers to these symptoms [...] Colonoscopy COLONOSCOPY VIA STOMA W OR W/O [facility] 04/27/14 PAST SURGICAL HISTORY OF lymph node [...] 110/58 Pulse 64 Ht 167.6 cm (5' 6") Wt 56 kg (123 lb 6.4 oz) [...] FRONTAL/LAT Stanley Kaiser MD documented in this encounterCincinnati Shriners Hospital01-30-2023 Miscellaneous Notes* Telephone Encounter - Becky Aly [...] to Vascular Surgery Dr. Eriberto Ortiz at [facility]. Appt scheduled for tomorrow 06/16/22 @ 11:00 Becky Aly * Telephone Encounter - Stanley Kaiser MD - 06/15/2022 9:51 AM EST Labs are ok except has some protein in the urine. Probably is ok but to be on the safe side. Recheck ua in one month documented in this encounterCincinnati Shriners Hospital01-28-[address] Talbot [facility] June 13, 2022 10:08pm Note Date/Time June 13, 2022 7 :11pm [facility] Medical Records Department [address] [place] [address] Emergency Department Summary 06/13/22 MR#: [id number] Acct: [id number] Name: VICK ROMAN Rep #:[id number] : [id number] From: Wilfredo Mahmood PCP: [...] manipulation or surgery, no recent urinary catheterization. PFSH PFSH Medical History (Updated 06/13/22 @ 22:[address] Wilfredo Talbot, DO) Change in bowel habits History of colon polyps Skin lesion Home Medications NK 06/24/17 [History Last Taken Unknown] Allergy/AdvReac Type Severity Reaction Status Date / Time No Known Allergies Allergy Verified 07/12/17 08:52 Family History Brother Heart disease Surgical History (Updated 06/13/22 @ 22:[address] Wilfredo Talbot, DO) History of colectomy S/P colonoscopy Status [...] Ox 95 Oxygen Delivery Method Room Air MDM MDM MDM Narrative Medical decision making narrative: Chief Complaint: [...] (Auto) 69.0 Lymph % (Auto) 18.0 L Woods % (Auto) 12.4 H Eos % (Auto) [...] Color Urine Clarity Urine pH Ur Specific [place] Urine Protein Urine Glucose (UA) Urine Ketones Urine Occult Blood Urine Nitrite Urine Bilirubin Urine Urobilinogen Ur Leukocyte Esterase Urine RBC Urine WBC Ur Squamous Epith Cells Urine Bacteria Urine Mucus 06/13/22 20:50 WBC RBC Hgb Hct MCV MCH MCHC RDW Std Deviation RDW Coeff of Carlos Plt Count MPV Immature Gran % (Auto) Neut % (Auto) Lymph % (Auto) Woods % (Auto) Eos % (Auto) Baso % [...] Clarity Clear Urine pH 6.5 Ur Specific [place] 1.010 Urine Protein Negative Urine Glucose (UA) [...] Plan Triage Chief Complaint: Back ED Provider: Wilfredo Talbot Dx/Rx/DC Orders Clinical Impression: AAA (abdominal aortic [...] problems, contact your Primary Care Provider. Call [facility] ([phone]) or report to the closest Emergency Room. Call 911 if necessary. 06/13/222207 <Electronically signed by Wilfredo Talbot DO> Cosigner Signature (if applicable): CC: Dr. Eriberto Ortiz MD; Dr. Stanley Kaiser MD ~ Signed [facility] Work Phone: 1(338) 362-161501-28-2023 History of Present illness Narrative* Stanley Kaiser [...] Procedure Laterality Date COLONOSCOP W/ OR W/O BRSH SPEC 02/22/2013 Colonoscopy COLONOSCOPY 07/04/17 COLONOSCOPY VIA STOMA W OR W/O [facility] 04/27/14 PART REMOVAL COLON W COLOPROCTOSTOMY 04-10-13 [...] C (97.8 F) Ht 167.6 cm (5' 6") Wt 60.3 kg (133 lb) SpO2 95% [...] etc. Stanley Kaiser [facility] of Past illness Narrative* Problem Noted Date Resolved Date Benign neoplasm of colon 04/27/2014 014 documented as of this encounter (statuses as of 06/13/2022) [address]12-2014 History of Past illness Narrative* Problem Noted Date Resolved Date Benign neoplasm of colon 04/27/2014 014 documented as of this encounter (statuses as of 06/15/2022) [address]12-2014 History of Past illness Narrative* Problem Noted Date Resolved Date Benign neoplasm of colon 04/27/2014 014 documented as of this encounter (statuses as of 11/20/2022) [address]12-2014 History of Past illness Narrative* Problem Noted Date Diagnosed Date Resolved Date Benign neoplasm of colon 04/27/201404/2014 documented as of this encounter (statuses as of 11/21/2022) [address]12-2014 History of Past illness Narrative* Problem Noted Date Diagnosed Date Resolved Date Benign neoplasm of colon 04/27/201404/2014 documented as of this encounter (statuses as of 11/24/2022) [address]12-2014 History of Past illness Narrative* Problem Noted Date Diagnosed Date Resolved Date Benign neoplasm of colon 04/27/201404/2014 documented as of this encounter (statuses as of 11/27/2022) [facility] Diagnosis Abdominal discomfort in left upper quadrant- Primary Abdominal pain, left upper quadrant History of lymphoma Personal history of other lymphatic and hematopoietic neoplasm [facility] this [facility] noteNo assessment information availableWCommunity [facility] Work Phone: Evaluation note* Diagnosis Proteinuria, unspecified type- Primary [facility]* Diagnosis Acute cough- Primary Abdominal aortic aneurysm (AAA) without rupture, unspecified part (HCC) Bronchitis Bronchitis, not specified as acute or chronic Weight loss Loss of weight [facility] this encounter [facility]* Diagnosis Leukocytosis, unspecified type- Primary [facility] Diagnosis Bacterial pneumonia- Primary Bacterial pneumonia, unspecified Weight loss Loss of weight [facility]* Diagnosis Bacterial pneumonia- Primary Bacterial pneumonia, unspecified Abdominal aortic aneurysm (AAA) without rupture, unspecified part (HCC) Essential (primary) hypertension Unspecified essential hypertension Mixed hyperlipidemia [facility]* Diagnosis Cervical mass Other specified noninflammatory disorder of cervix History of lymphoma Personal history of other lymphatic and hematopoietic neoplasm [facility]* Diagnosis Neck mass- Primary Swelling, mass, or lump in head and neck documented [facility]* Diagnosis Hyperglycemia- Primary Other abnormal glucose [facility]* Diagnosis Prediabetes- Primary Other abnormal glucose documented in this encounter [facility] note* Diagnosis Neck mass- Primary Swelling, mass, or lump in head and neck Mixed hyperlipidemia History of lymphoma Personal history of other lymphatic and hematopoietic neoplasm Prediabetes Other abnormal glucose [facility]* Diagnosis 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, unspecified follicular lymphoma type (HCC)- Primary [facility]* Diagnosis 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, unspecified follicular lymphoma type (HCC) documented [facility] this encounter [facility]* Diagnosis 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, unspecified follicular lymphoma type (HCC)- Primary [facility]* Diagnosis 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, unspecified follicular lymphoma type (HCC)- Primary [facility]* Diagnosis 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, unspecified follicular lymphoma type (HCC)- Primary [facility] encounter [facility]* Diagnosis Essential (primary) hypertension- Primary Unspecified essential hypertension Abdominal aortic aneurysm (AAA) without rupture, unspecified part (HCC) Lymphoma, unspecified body region, unspecified lymphoma type (HCC) Prediabetes Other abnormal glucose Screening for depression Encounter for screening examination for other mental health and behavioral disorders [facility] Diagnosis Mixed hyperlipidemia documented in this encounter [facility] note* Diagnosis Bacterial pneumonia Bacterial pneumonia, unspecified documented in this encounter [facility] note* Diagnosis Acute cough Bronchitis Bronchitis, not specified as acute or chronic Weight loss Loss of weight documented in this encounter [facility] note* Diagnosis Abdominal aortic aneurysm (AAA) without rupture, unspecified part (HCC)- Primary Mixed hyperlipidemia Essential (primary) hypertension Unspecified essential hypertension Lymphoma, unspecified body region, unspecified lymphoma type (HCC) Prediabetes Other abnormal glucose Tobacco user Tobacco use disorder [facility] this encounter [facility]* Diagnosis 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, unspecified follicular lymphoma type (HCC)- Primary Tobacco user Tobacco use disorder [facility]* Diagnosis Elevated bilirubin- Primary Jaundice, unspecified, not of documented [facility] Additional Instructions Please return if develop worsening pain, flank pain, back pain, abdominal pain. Please return if you lose consciousness. Please return if you become pale, weak or if your symptoms change or worsen in any way. Please follow-up with Dr. Ortiz (vascular surgeon) for outpatient evaluation and to discuss surgical options.[facility] Work Phone: Hospital Discharge instructions Additional Instructions Please follow-up with PCP regarding her elevated blood pressure. Please present to your appointment with Dr. Ortiz tomorrow morning. Please return for any abdominal pain, back pain, and loss of consciousness.[facility] Work Phone: Hospital Discharge instructionsAmbulatory Orders* Cardiology Location: None Selected [facility] Work Phone: Reason for referral (narrative)* Diagnostic Procedure Only (Routine) - Authorized Specialty Diagnoses / Procedures Referred By Contac t Referred To Contact MOLECULAR & FUNCTIONAL IMAGING Diagnoses 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, unspecified follicular lymphoma type (HCC) Procedures NM PET/CT SKULL-THIGH INITIAL PET IMAGING CT ATTENUATION SKULL BASE MID-THIGH Tomas Fontenot, [address] [place] [address] Molecular & Functional Imaging [address] [place] [address] Referral ID Status Reason Start Date Expiration Date Visits Requested Visits Authorized [id number] Authorized Auto-Generat ed Referral 08/09/2023 09/07/2024 [facility] Diagnostic Procedure Only (Routine) - Closed Specialty Diagnoses / Procedures Referred By Contac t Referred To Contact MOLECULAR & FUNCTIONAL IMAGING Diagnoses 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, unspecified follicular lymphoma type (HCC) Procedures NM PET/CT SKULL-THIGH INITIAL PET IMAGING CT ATTENUATION SKULL BASE MID-THIGH Tomas Fontenot DO [address] [place] [address] Molecular & Functional Imaging [address] [place] [address] Referral ID Status Reason Start Date Expiration Date V isits Requested Visits Authorized [id number] Closed Auto-Generate d Referral 08/09/2023 09/07/2024 1 1 [facility] Chief Complaint and Reason for Visit Chief [...] FU September 18, 2024 2:22pm Surgical Clearance ([place]) September 26 1:31pm Reason for Visit Admit [...] aneurysm) without rupture October 23, 2024 4:18pm Chief Complaint Admit Date AAA September 14, 2024 2:23pm ABD PAIN September 17, 2024 6:11am Discuss CTA results/2 Y FU September 18, 2024 2:22pm Surgical Clearance ([place]) September 26 1:31pm Endovascular Repair, Abdominal Aortic An eurfabrizio, Gr October 23, 2024 11:16am Endovascular Repair, Abdominal Aortic An eurism, Gr October 23, 2024 4:18pm Endovascular Repair, Abdominal Aortic An eurism, Gr October 24, 2024 8:14am Post EVAR 2-4 WK FU November 07, 2024 1:44 pm Advance Directives No Advanced Directives Records Found Advance Directive Response Recorded Date/ Time Advance Directives No June 1:11pm Living Will No June 13 7:59pm Power of Data Base Design Analyst No June 13, 2022 7:59pm Advance Directive Response Recorded Date/ Time Advance Directives No June 1:11pm Living Will No June 15 1:25pm Power of Data Base Design Analyst No June 15, 2022 1:25pm Advance Directive Response Recorded Date/ Time Advance Directives No June 2:11pm Living Will No October 02, 2022 1 1:05am Power of Data Base Design Analyst No October 02, 2022 11:05am Advance Directive Response Recorded Date/ Time Advance Directives No June 1:11pm Living Will No October 02, 2022 1 0:05am Power of Data Base Design Analyst No October 02, 2022 10:05am Advance Directive Response Recorded Date/ Time Do you have a Healthcare Power of Data Base Design Analyst? No September 17, 2024 6:12am Advance Directives No June 2:11pm Advance Directive Response Recorded Date/ Time Do you have a Healthcare Power of Data Base Design Analyst? Yes October 23, 2024 5:47pm Do you have a Healthcare Power of Data Base Design Analyst? No September 17, 2024 6:12am Advance Directives No June 2:11pm Reason for Referral Specialty Diagnoses / Procedures Referred By Contac t Referred To Contact CT IMAGING Diagnoses Cervical mass History of lymphoma Procedures CT NECK SOFT TISSUE W IVCON CT SOFT TISSUE NECK W/CONTRAST MATERIAL Stanley Kaiser MD [address] [place] [address] [place] [id number] Referral ID Status Reason Start Date Expiration Date V isits Requested Visits Authorized [id number] Closed Auto-Generate d Referral 06/16/2023 07/15/2024 1 1 Specialty Diagnoses / Procedures Referred By Contac t Referred To Contact Ent - Otolaryngology Diagnoses Neck mass Procedures CONSULT TO ENT OFFICE/OUTPATIENT [facility] 60 MINUTES Stanley Kaiser MD [address] [place] [address] Referral ID Status Reason Start Date Expiration Date Visits Requested Visits Authorized [id number] Authorized PCP Requested Referral 06/18/2023 06/17/2024 1 1 Specialty Diagnoses / Procedures Referred By Contac t Referred To Contact Vascular Surgery Diagnoses Abdominal aortic aneurysm (AAA) without rupture, unspecified part (HCC) Procedures [place]SULT [place] [address] [place] [id number] Referral ID Status Reason Start Date Expiration Date Visits Requested Visits Authorized [id number] Ref Not Required PCP Requested Referral 12/29/2023 [...] or prosecute any alcohol or drug abuse patient.[facility] the event this information is protected by the Federal Confidentiality of Alcohol and Drug Abuse Patient Records regulations: The Federal rules restrict any use of the information to criminally investigate or prosecute any alcohol or drug abuse patient.[facility] the event this information is protected by the Federal Confidentiality of Alcohol and Drug Abuse Patient Records regulations: The Federal rules restrict any use of the information to criminally investigate or prosecute any alcohol or drug abuse patient.[facility] the event this information is protected by the Federal Confidentiality of Alcohol and Drug Abuse Patient Records regulations: The Federal rules restrict any use of the information to criminally investigate or prosecute any alcohol or drug abuse patient.[facility] the event this information is protected by the Federal Confidentiality of Alcohol and Drug Abuse Patient Records regulations: The Federal rules restrict any use of the information to criminally investigate or prosecute any alcohol or drug abuse patient.[facility] Hospital[facility] the event this information is protected by the Federal Confidentiality of Alcohol and Drug Abuse Patient Records regulations: The Federal rules restrict any use of the information to criminally investigate or prosecute any alcohol or drug abuse patient.[facility] Hospital[facility] the event this information is protected by the Federal Confidentiality of Alcohol and Drug Abuse Patient Records regulations: The Federal rules restrict any use of the information to criminally investigate or prosecute any alcohol or drug abuse patient.[facility] Hospital[facility] the event this information is protected by the Federal Confidentiality of Alcohol and Drug Abuse Patient Records regulations: The Federal rules restrict any use of the information to criminally investigate or prosecute any alcohol or drug abuse patient.[facility] Hospital[facility] the event this information is protected by the Federal Confidentiality of Alcohol and Drug Abuse Patient Records regulations: The Federal rules restrict any use of the information to criminally investigate or prosecute any alcohol or drug abuse patient.[facility] Hospital[facility] the event this information is protected by the Federal Confidentiality of Alcohol and Drug Abuse Patient Records regulations: The Federal rules restrict any use of the information to criminally investigate or prosecute any alcohol or drug abuse patient.[facility] Hospital[facility] the event this information is protected by the Federal Confidentiality of Alcohol and Drug Abuse Patient Records regulations: The Federal rules restrict any use of the information to criminally investigate or prosecute any alcohol or drug abuse patient.[facility] Hospital[facility] the event this information is protected by the Federal Confidentiality of Alcohol and Drug Abuse Patient Records regulations: The Federal rules restrict any use of the information to criminally investigate or prosecute any alcohol or drug abuse patient.[facility] Hospital[facility] the event this information is protected by the Federal Confidentiality of Alcohol and Drug Abuse Patient Records regulations: The Federal rules restrict any use of the information to criminally investigate or prosecute any alcohol or drug abuse patient.[facility] Hospital[facility] the event this information is protected by the Federal Confidentiality of Alcohol and Drug Abuse Patient Records regulations: The Federal rules restrict any use of the information to criminally investigate or prosecute any alcohol or drug abuse patient.[facility] the event this information is protected by the Federal Confidentiality of Alcohol and Drug Abuse Patient Records regulations: The Federal rules restrict any use of the information to criminally investigate or prosecute any alcohol or drug abuse patient.[facility] Hospital[facility] the event this information is protected by the Federal Confidentiality of Alcohol and Drug Abuse Patient Records regulations: The Federal rules restrict any use of the information to criminally investigate or prosecute any alcohol or drug abuse patient.[facility] HospitalIn the event this information is protected by the Federal Confidentiality of Alcohol and Drug Abuse Patient Records regulations: The Federal rules restrict any use of the information to criminally investigate or prosecute any alcohol or drug abuse patient.[facility] HospitalIn the event this information is protected by the Federal Confidentiality of Alcohol and Drug Abuse Patient Records regulations: The Federal rules restrict any use of the information to criminally investigate or prosecute any alcohol or drug abuse patient.[facility] HospitalIn the event this information is protected by the Federal Confidentiality of Alcohol and Drug Abuse Patient Records regulations: The Federal rules restrict any use of the information to criminally investigate or prosecute any alcohol or drug abuse patient.[facility] HospitalIn the event this information is protected by the Federal Confidentiality of Alcohol and Drug Abuse Patient Records regulations: The Federal rules restrict any use of the information to criminally investigate or prosecute any alcohol or drug abuse patient.[facility] HospitalIn the event this information is protected by the Federal Confidentiality of Alcohol and Drug Abuse Patient Records regulations: The Federal rules restrict any use of the information to criminally investigate or prosecute any alcohol or drug abuse patient.[facility] Hospital[facility] the event this information is protected by the Federal Confidentiality of Alcohol and Drug Abuse Patient Records regulations: The Federal rules restrict any use of the information to criminally investigate or prosecute any alcohol or drug abuse patient.[facility] HospitalIn the event this information is protected by the Federal Confidentiality of Alcohol and Drug Abuse Patient Records regulations: The Federal rules restrict any use of the information to criminally investigate or prosecute any alcohol or drug abuse patient.[facility] HospitalIn the event this information is protected by the Federal Confidentiality of Alcohol and Drug Abuse Patient Records regulations: The Federal rules restrict any use of the information to criminally investigate or prosecute any alcohol or drug abuse patient.[facility] HospitalIn the event this information is protected by the Federal Confidentiality of Alcohol and Drug Abuse Patient Records regulations: The Federal rules restrict any use of the information to criminally investigate or prosecute any alcohol or drug abuse patient.[facility] HospitalIn the event this information is protected by the Federal Confidentiality of Alcohol and Drug Abuse Patient Records regulations: The Federal rules restrict any use of the information to criminally investigate or prosecute any alcohol or drug abuse patient.[facility] HospitalIn the event this information is protected by the Federal Confidentiality of Alcohol and Drug Abuse Patient Records regulations: The Federal rules restrict any use of the information to criminally investigate or prosecute any alcohol or drug abuse patient.[facility] HospitalIn the event this information is protected by the Federal Confidentiality of Alcohol and Drug Abuse Patient Records regulations: The Federal rules restrict any use of the information to criminally investigate or prosecute any alcohol or drug abuse patient.[facility] HospitalIn the event this information is protected by the Federal Confidentiality of Alcohol and Drug Abuse Patient Records regulations: The Federal rules restrict any use of the information to criminally investigate or prosecute any alcohol or drug abuse patient.[facility] HospitalIn the event this information is protected by the Federal Confidentiality of Alcohol and Drug Abuse Patient Records regulations: The Federal rules restrict any use of the information to criminally investigate or prosecute any alcohol or drug abuse patient.[facility] HospitalIn the event this information is protected by the Federal Confidentiality of Alcohol and Drug Abuse Patient Records regulations: The Federal rules restrict any use of the information to criminally investigate or prosecute any alcohol or drug abuse patient.[facility] HospitalIn the event this information is protected by the Federal Confidentiality of Alcohol and Drug Abuse Patient Records regulations: The Federal rules restrict any use of the information to criminally investigate or prosecute any alcohol or drug abuse patient.[facility] Reason for Visit (unrecogniz ed section [...] TISSUE NECK W/CONTRAST MATERIAL Stanley Kaiser MD [address] [place] [address] [place] [id number] Referral ID Status Reason Start Date Expiration Date V isits Requested Visits Authorized [id number] Closed Auto-Generate d Referral 06/16/2023 07/15/2024 1 [...] Care Teams (unrecognized sec tion and content) Field Mechanic Relationship Specialty Start Date End Date Stanley Kaiser MD [address] [place], [place] [id number] PCP - General Family Medicine 09/21/12 Team Status: Active Member Role Status Dates Dr. Stanley Kaiser MD Family Provider Active Dr. Stanley Kaiser MD Primary Care Provider Active Team Status: Inactive Member Role Status Dates Dr. Stanley Kaiser MD Primary Care Provider Active Dr. Wilfredo Talbot DO Emergency Provider Active Field Mechanic Relationship Specialty Start Date End Date Stanley Kaiser MD [address] [place] [address] PCP - General Family Medicine 09/21/12 Field Mechanic Relationship Specialty Start Date End Date Stanley Kaiser MD [address] [place] [address] PCP - General Family Medicine 09/21/12 Field Mechanic Relationship Specialty Start Date End Date Stanley Kaiser MD [address] [place] [address] PCP - General Family Medicine 09/21/12 Field Mechanic Relationship Specialty Start Date End Date Stanley Kaiser MD [address] [place] [address] PCP - General Family Medicine 09/21/12 Field Mechanic Relationship Specialty Start Date End Date Stanley Kaiser MD [address] [place], [place] [id number] PCP - General Family Medicine 09/21/12 Team Status: Inactive Member Role Status Dates Dr. Stanley Kaiser MD Primary Care Provider Active JUNAID Rivas Attending Provider, Referring Provider Active Team Status: Inactive Member Role Status Dates Dr. Stanley Kaiser MD Primary Care Provider Active Nitin Carney MD Attending Provider, Emergency Provid er Active Field Mechanic Relationship Specialty Start Date End Date Stanley Kaiser MD [address] [place] [address] PCP - General Family Medicine 09/21/12 Field Mechanic Relationship Specialty Start Date End Date Stanley Kaiser MD [address] [place] [address] PCP - General Family Medicine 09/21/12 Field Mechanic Relationship Specialty Start Date End Date Stanley Kaiser MD [address] [facility] [place] [address] PCP - General Family Medicine 09/21/12 Field Mechanic Relationship Specialty Start Date End Date Stanley Kaiser MD [address] [facility] [place] [address] PCP - General Family Medicine 09/21/12 Field Mechanic Relationship Specialty Start Date End Date Stanley Kaiser MD [address] [place] [address] PCP - General Family Medicine 09/21/12 Field Mechanic Relationship Specialty Start Date End Date Stanley Kaiser MD [address] [place] [address] PCP - General Family Medicine 09/21/12 Team Status: Inactive Member Role Status Dates Dr. Stanley Kaiser MD Primary Care Provider Active Dr. Yogi Faust MD Attending Provider, Rhondae ing Provider Active Field Mechanic Relationship Specialty Start Date End Date Stanley Kaiser MD [address] [place] [address] PCP - General Family Medicine 09/21/12 Field Mechanic Relationship Specialty Start Date End Date Stanley Kaiser MD [address] [place] [address] PCP - General Family Medicine 09/21/12 Field Mechanic Relationship Specialty Start Date End Date Stanley Kaiser MD [address] [facility] [place] [address] PCP - General Family Medicine 09/21/12 Field Mechanic Relationship Specialty Start Date End Date Stanley Kaiser MD [address] [place] [address] PCP - General Family Medicine 09/21/12 Field Mechanic Relationship Specialty Start Date End Date Stanley Kaiser MD [address] [place] [address] PCP - General Family Medicine 09/21/12 Field Mechanic Relationship Specialty Start Date End Date Stanley Kaiser MD [address] [place] [address] PCP - General Family Medicine 09/21/12 Chelsy Shook [employer]STING [employer]LL[employer]ER.CONCIERGE MANAGER [address] [place] [address] [employer] Member Family Medicine 04/24/24 Shruti Galeano JUMPBASTING COLLAR BASTER.CONCIERGE MANAGER [address] [place] [address] [employer] Member Family Medicine 04/24/24 Field Mechanic Relationship Specialty Start Date End Date Stanley Kaiser MD [address] [place] [address] PCP - General Family Medicine 09/21/12 Chelsy Shook, JUMPBASTING COLLAR BASTER.CONCIERGE MANAGER [address] [place] [address] [employer] Member Family Medicine 04/24/24 Shruti Galeano JUMPBASTING COLLAR BASTER.CONCIERGE MANAGER [address] [place] [address] [employer] Member Family Medicine 04/24/24 Field Mechanic Relationship Specialty Start Date End Date Stanley Kaiser MD [address] [place] [address] PCP - General Family Medicine 09/21/12 Chelsy Shook APRN.CONCIERGE MANAGER [address] [place] [address] [employer] Member Family Medicine 04/24/24 Shruti Galeano JUMP[employer]STING COLLAR BASTER.CONCIERGE MANAGER [address] [place] [address] [employer] Member Family Medicine 04/24/24 Field Mechanic Relationship Specialty Start Date End Date Stanley Kaiser MD [address] [place] [address] PCP - General Family Medicine 09/21/12 Chelsy Shook APRN.CONCIERGE MANAGER [address] [place] [address] [employer] Member Family Medicine 04/24/24 Shruti Galeano JUMPBASTING COLLAR BASTER.CONCIERGE MANAGER [address] [place] [address] [facility] Field Mechanic Relationship Specialty Start Date End Date Stanley Kaiser MD [address] [place] [address] PCP - General Family Medicine 09/21/12 Chelsy Shook JUMPBASTING COLLAR BASTER.CONCIERGE MANAGER [address] [place] [address] [employer] Member Family Medicine 04/24/24 Shruti Galeano JUMPBASTING COLLAR BASTER.CONCIERGE MANAGER [address] [place] [address] [facility] Family Medicine 04/24/24 Team Status: Active Member Role Status [...] 2024 Dr. Juan M Mendez , DO Attending Provider Activ e Start: September 17, 2024 End: September 17, 2024 Dr. Juan M Mendez , DO Emergency Provider Activ e Start: September 17, 2024 End: September 17, 2024 Team Status: Inactive Member Role Status Dates Dr. Stanley aKiser MD Primary Care Provider Active Start: September [...] October 23, 2024 End: October 24, 2024 Team Status: Active Member Role Status Dates Dr. Stanley Kaiser MD Primary Care Provider Active Start: October 24, 2024 Dr. Eriberto Ortiz MD Admit Provider Active Start : October 24, 2024 Dr. Eriberto Ortiz MD Referring Provider Active S tart: October 24, 2024 Dr. Eriberto Ortiz MD Other Provider Active Start : October 24, 2024 Dr. Elkin Larson MD Other Provider Active Start: October 24, 2024 Dr. Brayan Breaux MD Other Provider Active St art: October 24, 2024 JUNAID Dumas Attending Provider Active Star t: October 24, 2024 Team Status: Inactive Member Role Status Dates Dr. Stanley Kaiser MD Primary Care Provider Active Start: November 07, 2024 End: November 07, 2024 Dr. Stanley Kaiser MD Referring Provider Active Start: November 07, 2024 End: November 07, 2024 JUNAID Dumas Attending Provider Active Star t: November 07, 2024 End: November 07, 2024 Goals (unrecognized section and content) Goals [...] section and content) DATE CREATED AUTHOR 07/02/2024 [facility] DATE CREATED AUTHOR AUTHOR'S ORGANIZ ATION 09/21/2024 [facility] DATE CREATED AUTHOR AUTHOR'S ORGANIZ ATION 12/02/2024 [facility] FOR RECORDS PERTAINING TO PATIENTS WHO ARE [...] BE BASED ON THE PRIMARY CLINICAL RECORDS. [employer] [facility]. provides no warranty or guarantee of the accuracy or completeness of information in this document.
== END | disposition home or self-care (01) ==
LOC: CT 06:03
PROVIDERS: PCP Family Medicine; Referring Provider Physician Assistant; Visit Provider Physician Assistant
DX: I71.43 Infrarenal abdominal aortic aneurysm, without rupture (principal); Z98.890 Other specified postprocedural states; Z86.79 Personal history of other diseases of the circulatory system
CPT/HCPCS: 74174; Q9967